=== PATIENT | female | born 1975 | race Caucasian/White ===

== ENCOUNTER → 2023-02-17 | Outpatient (CLI) | payer OTHER, SELFPAY ==
[2023-02-17 08:09] LABS: Absolute Lymphocyte Count 1.58 X10^3/uL (0.83-4.51); Absolute Neutrophil Count 5.8 X10^3/uL (2.0-7.7); Basophil# 0.05 X10^3/uL; Basophil% 0.6 % (0-1); Eosinophil# 0.27 X10^3/uL; Eosinophils% 3.2 % (0-5); Lymphocyte # 1.58 X10^3/ul (0.83-4.51); Mean Corp Hgb Conc 31.7 g/dL (32-36); Mean Corpuscular Hgb 28.8 pg (27.0-32.0); Mean Corpuscular Volume 90.9 fL (81-99); Mean Platelet Vol. 11.2 fl (6.2-12.0); Monocyte# 0.62 X10^3/uL; Monocyte% 7.4 % (0-10); NRBC Flagged by Analyzer 0 % (0-5); Neutrophil # 5.78 X10^3/uL (2.7-7.7); Neutrophil % 69.4 % (47-70); Platelet Count 283 K/mm3 (150-450); RBC Distribution Width SD 43.2 fl (35.1-43.9); Red Blood Count 4.51 M/mm3 (4.2-5.4); White Blood Count 8.3 K/mm3 (4.4-11.0)
[2023-02-17 08:58] LABS: Hemoglobin A1c 5.3 % (3.8-5.6)
[2023-02-17 08:59] LABS: Vitamin B12 412 pg/mL (211-911)
[2023-02-17 09:42] LABS: ALB/GLOB Ratio 0.8 RATIO (0.9-2.4); AST(SGOT) 18 U/L (15-37); Alanine Aminotransfer ALT/SGPT 23 U/L (13-56); Albumin, Serum 3.5 g/dL (3.2-5.0); Alkaline Phosphatase 93 U/L (45-117); Anion Gap 7 (5-15); BUN 15 mg/dL (7-18); BUN/Creat Ratio 18.2 RATIO (10-20); Calcium,Total 8.9 mg/dL (8.5-10.1); Chloride 109 mmol/L (98-107); Cholesterol 226 mg/dL (200); Creatinine, Serum 0.82 mg/dL (0.55-1.02); EST Glomerular Filtration Rate 79 mL/min (>60); Est Glom Filt Rate - Afr Amer 96 mL/min (>60); Estradiol 48.1 pg/mL; Follicle Stimulating Hormone 13.3 mIU/mL; Free T3 2.5 pg/mL (2.18-3.98); Globulin 4.2 g/dL (2.2-4.2); Glucose 103 mg/dL (74-106); High Density Lipoprotein 55 mg/dL; Luteinizing Hormone 5.6 mIU/mL; Potassium 3.6 mmol/L (3.5-5.1); Protein, Total 7.7 g/dL (6.4-8.2); Sodium Level 140 mmol/L (136-145); T4 Free Direct 0.89 ng/dL (0.76-1.46); Triglycerides 125 mg/dL; Very Low Density Lipoprotein 25 mg/dL (5-40)
[2023-02-18 04:07] LABS: DHEA Sulfate 26.6 ug/dL (41.2-243.7)
== END | disposition home or self-care (01) ==
LOC: MTLAB 07:50 → LAB 07:52
PROVIDERS: PCP Family Medicine; Referring Provider Family Medicine; Visit Provider Family Medicine
DX: R53.83 Other fatigue (principal); R87.1 Abnormal level of hormones in specimens from female genital organs
CPT/HCPCS: 36415; 80053; 80061; 82306; 82533; 82607; 82627; 82670; 83001; 83002; 83036; 84403; 84439; 84443; 84481; 85025; 82626

== ENCOUNTER 2023-04-28 06:38 | Emergency (ER) | payer OTHER, SELFPAY ==
[2023-04-28 06:39] VITALS: BP 180/107; PULSE 72; RESP 21; TEMP 36.6; O2SAT 98; BMI 35.6
--- NOTE | 2023-04-28 07:01 | EKG12_ITS ---
Test Reason : palps Blood Pressure : / mmHG Vent. Rate : 065 BPM Atrial Rate : 065 BPM P-R Int : 150 ms QRS Dur : 084 ms QT Int : 404 ms P-R-T Axes : 013 049 025 degrees QTc Int : 420 ms Sinus rhythm with occasional Premature ventricular complexes Otherwise normal ECG Confirmed by JOB VIERA, MAULIK ([id number]), sports editor ROSA PRICE ([id number]) on 04/29/2023 9:55:28 AM Referred By: Hector Confirmed By:MAULIK KAISER MD
--- NOTE | 2023-04-28 07:05 | EDS_ITS ---
HPI History of Present Illness Chief Complaint: Palpitations Detail of Chief Complaint: Did not feel well, palpitations, dizziness and irregular heartbeat Informant: patient and spouse/S.O. Onset/Context/Timing Onset: Yesterday (Last evening for several hours) Context: Sudden Onset Timing: Intermittent (The palpitations irregular heartbeat lasted for a couple hours) Quality: [place] heartbeat Location: Chest Current Severity: Still does not feel normal. Maximum Severity: Moderate Worsened by: Dizziness worsened with standing Relieved by: Not feeling right has not resolved Associated Symptoms Associated Symptoms: None Narrative Narrative: Patient is a 47-year-old woman with history of depression and hypertension who presents with not feeling well with irregular heartbeat, palpitations and dizziness. Patient defines dizziness as lightheaded and was made worse when she joaquina from a sitting position. She denied headache. She denied double vision, blurred vision or loss of vision. She denies upper respiratory symptoms. She denies cough or shortness of breath. She denies chest discomfort. There is no history of VTE. She denies leg pain, swelling or discoloration. She denies diaphoresis, nausea or shortness of breath. She denies abdominal pain. She denies vomiting or diarrhea. She denies neurologic symptoms. There is been no change in medication dosage or any additions or subtractions from present medication list. 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 He did not palpate for a pulse to determine if these may be PACs versus ventricular premature beats. Prior similar symptoms: No Recent Illness/Hospitalization: No [facility] Medical History Hypertension Home Medications Cetirizine Hcl [Zyrtec] 10 mg PO DAILY 06/15/16 [History Last Taken 06/15/16 09:00] escitalopram oxalate 10 mg tablet 10 mg PO DAILY 04/28/23 [History Last Taken Unknown] lisinopril 20 mg tablet 20 mg DAILY 04/28/23 [History Last Taken Unknown] Allergy/AdvReac Type Severity Reaction Status Date / Time No Known Allergies Allergy Verified 04/28/23 06:47 Surgical History History of appendectomy Social History (Updated 08/03/23 @ 07:[address] Bo Young MD) household members: spouse Smoking Status: Never smoker alcohol intake: current alcohol intake frequency: holidays/special occasions only substance use type: does not use ROS ROS ED Constitutional Constitutional ED: Denies chills, fever(s), subjective or sweats Eyes Eyes: Denies blurry vision, change in vision or diplopia ENT ENT ED: Denies ear pain, rhinorrhea or sore throat Cardiovascular Cardiovascular: Reports palpitations; Denies chest pain, orthopnea, paroxysmal nocturnal dyspnea or racing heartbeat Respiratory/Chest Respiratory/Chest: Denies cough, dyspnea, dyspnea on exertion, orthopnea or paroxysmal nocturnal dyspnea Gastrointestinal Gastrointestinal: Denies abdominal pain, constipation, diarrhea, melena, nausea or vomiting Genitourinary Genitourinary ED: Denies dysuria, hematuria or urinary frequency Musculoskeletal Musculoskeletal: Denies arthralgias, back pain, myalgias or neck pain Integumentary Denies rash Neurologic Neurologic: Denies headache(s) Endocrine Endocrinology: Reports heat intolerance; Denies cold intolerance, polydipsia or polyuria Hematologic/Lymphatic Hematologic/Lymphatic: Reports systems reviewed and no addt'l complaints, except as documented EXAM Physical Exam Const Vital Signs: 04/28/23 06:39 Temperature 97.8 F Temperature Source Oral Pulse Rate 72 Respiratory Rate 21 H Blood Pressure 180/107 H Blood Pressure Mean 131 Pulse Ox 98 Oxygen Delivery Method Room Air Positive well nourished, well developed and obese General Appearance ED: well developed and NAD; Negative for cyanotic, diaphoretic or pallor Nutritional Appearance: obese HEENT Reports moist mucous membranes HEENT Narrative: Head is atraumatic normocephalic. Ears are normal. Nares are patent. Posterior pharynx is normal. Mucosa is moist. Eyes PERRL and EOMs intact bilaterally General Eye ED: Negative for pale conjunctiva or scleral icterus Neck no lymphadenopathy, supple and no JVD Chest Wall inspection of chest normal and palpation of chest normal Resp normal respiratory effort and clear to auscultation bilaterally Cardio regular rate, regular rhythm, S1 normal heart sound, S2 normal heart sound and no murmurs GI normal to inspection, nondistended, normoactive bowel sounds, non-tender, non- distended and no masses; Negative for hepatosplenomegaly Back/Spine Back/Spine Narrative: Inspection of back is normal. Extremity normal to inspection Extremity Narrative: There is no asymmetry, swelling, discoloration, leg vein distention, palpable cords or tenderness along the distribution of the deep venous system. General Extremety ED: Negative for edema or tenderness General Extremity: Negative for edema Neuro oriented x3 and CN's II-XII intact bilaterally Sensorium / Orientation: alert Psych mental status grossly normal Skin no rashes or lesions noted, no wounds and skin turgor normal General Skin Exam: elasticity normal; Negative for jaundice or pallor MDM MDM MDM Narrative Medical decision making narrative: Differential diagnosis includes PACs, ventricular premature beats, electrolyte abnormality, noncardiac etiology. Of note patient drinks 1 caffeinated beverage a day, cup of coffee in the morning. Lab Data Attestation: I reviewed the patient's lab results. Lab results narrative: CBC and basic metabolic panel are essentially normal. Chloride is 108. Labs: Laboratory Results - last 24 hr 04/28/23 06:48 WBC 8.8 RBC 4.45 Hgb 13.0 Hct 39.0 MCV 87.6 MCH 29.2 MCHC 33.3 RDW Std Deviation 39.8 RDW Coeff of Jennifer 12.5 Plt Count 256 MPV 11.5 Sodium 139 Potassium 4.0 Chloride 108 H Carbon Dioxide 24.0 Anion Gap 7 BUN 13 Creatinine 0.76 Estim Creat Clear Calc 85.67 Est GFR (MDRD) Af Amer 105 Est GFR (MDRD) Non-Af 87 BUN/Creatinine Ratio 17.2 Glucose 92 Calcium 8.4 L EKG Initial EKG: Attestation: I personally reviewed and interpreted this EKG as follows: Interpretation: Sinus Rhythm (Rate is 65. OR interval is 150 ms. Cures duration 84 ms. QT duration 404 ms. [place] is normal. There is a premature ventricular beat noted.) Treatment and Re-Evaluation :: Remained on the monitor. There was no significant dysrhythmia noted. Patient does have premature ventricular beats. This is probably the irregular beats noted when he auscultated. Since these are unifocal and occasional and her work-up is unremarkable with no further testing needs to be done. She was instructed follow-up with her doctor as needed. Discharge Plan Triage Chief Complaint: Palpitations ED Provider: Bo Young Dx/Rx/DC Orders Clinical Impression: Ventricular premature complexes Instructions: PVCs, ED About Arrhythmias Prescriptions: No Action Cetirizine Hcl [Zyrtec] 10 MG tablet 10 mg PO DAILY Patient Comments: ALLERGIES lisinopril 20 mg tablet 20 mg DAILY Patient Comments: Take 1 tablet by mouthconce daily. escitalopram oxalate 10 mg tablet 10 mg PO DAILY Patient Comments: Take 1 tablet by mouthConce daily. Primary Care Provider: Maryse Velazquez Referrals: Maryse Velazquez DO [Primary Care Provider] - As Needed Disposition Disposition: Home, Self Care
[2023-04-28 07:09] LABS: Mean Corp Hgb Conc 33.3 g/dL (32-36); Mean Corpuscular Hgb 29.2 pg (27.0-32.0); Mean Corpuscular Volume 87.6 fL (81-99); Mean Platelet Vol. 11.5 fl (6.2-12.0); Platelet Count 256 K/mm3 (150-450); RBC Distribution Width CV 12.5 % (11.6-14.6); RBC Distribution Width SD 39.8 fl (35.1-43.9); Red Blood Count 4.45 M/mm3 (4.2-5.4); White Blood Count 8.8 K/mm3 (4.4-11.0)
[2023-04-28 07:21] LABS: Anion Gap 7 (5-15); BUN 13 mg/dL (7-18); BUN/Creat Ratio 17.2 RATIO (10-20); Calcium,Total 8.4 mg/dL (8.5-10.1); Chloride 108 mmol/L (98-107); Creatinine, Serum 0.76 mg/dL (0.55-1.02); EST Glomerular Filtration Rate 87 mL/min (>60); Est Glom Filt Rate - Afr Amer 105 mL/min (>60); Estimated Creatinine Clearance 85.67 ml/min; Glucose 92 mg/dL (74-106); Sodium Level 139 mmol/L (136-145)
[2023-04-28 09:23] VITALS: BP 138/98; PULSE 72; RESP 14; O2SAT 97
== END 2023-04-28 09:28 | disposition home or self-care (01) ==
PROVIDERS: Emergency Provider Emergency Medicine; PCP Family Medicine; Visit Provider Emergency Medicine
DX: I49.3 Ventricular premature depolarization (principal); I10 Essential (primary) hypertension; Z79.899 Other long term (current) drug therapy
CPT/HCPCS: 80048; 85027; 93005; 99284; A4216

== ENCOUNTER 2023-08-24 20:42 | Emergency (ER) | payer OTHER, SELFPAY ==
[2023-08-24 20:44] VITALS: BP 181/102; PULSE 79; RESP 18; TEMP 37; O2SAT 98; BMI 36.6
--- NOTE | 2023-08-24 20:55 | EDS_ITS ---
HPI HPI - GI History of Present Illness Chief Complaint: Abd Pain Detail of Chief Complaint: Abdominal pain Informant: patient Narrative Narrative: Patient presents to the emergency department with complaint of abdominal pain x3 days. Patient has had some nausea but no vomiting. She denies fever but she had some chills. She describes the pain location as diffuse but also some discomfort in her left lower back. She denies urinary symptoms. She denies dysuria or urgency or frequency. No history of kidney stones. No history of diverticulitis. She has had prior appendectomy. Currently rates her pain a 6 or 7 out of 10. [facility] Medical History (Updated 08/24/23 @ 23:[address] Griselda Stewart, DO) Hypertension Osteoporosis Home Medications Cetirizine Hcl [Zyrtec] 10 mg PO DAILY 06/15/16 [History Last Taken 06/15/16 09:00] escitalopram oxalate 10 mg tablet 10 mg PO DAILY 04/28/23 [History Last Taken Unknown] lisinopril 20 mg tablet 20 mg PO DAILY 04/28/23 [History Last Taken Unknown] dicyclomine 10 mg capsule 20 mg (2 x 10 mg) PO TIDAC #20 CAPSULES 08/24/23 [Rx Last Taken Unknown] hydrocodone-acetaminophen 5-325mg 5mg-325mg 1 tab PO Q4H PRN PRN Pain 2 days #10 TABLETS 08/24/23 [Rx Last Taken Unknown] ondansetron 4 mg disintegrating tablet 4 mg PO Q8H PRN PRN Nausea #10 tabs 08/24/23 [Rx Last Taken Unknown] Allergy/AdvReac Type Severity Reaction Status Date / Time No Known Allergies Allergy Verified 08/24/23 20:46 Surgical History History of appendectomy Social History (Updated 04/28/23 @ 07:[address] Bo Young MD) household members: spouse Smoking Status: Never smoker alcohol intake: current alcohol intake frequency: holidays/special occasions only substance use type: does not use ROS ROS ED Review of Systems ROS Unobtainable: other Constitutional Constitutional ED: Reports lethargy; Denies chills, fever(s), sweats or weight loss Eyes Eyes: Denies blurry vision, change in vision or diplopia ENT ENT ED: Denies rhinorrhea or sore throat Cardiovascular Cardiovascular: Denies chest pain, orthopnea or racing heartbeat Respiratory/Chest Respiratory/Chest: Denies cough, dyspnea, dyspnea on exertion, orthopnea or sputum Gastrointestinal Gastrointestinal: Reports abdominal pain and nausea; Denies diarrhea or vomiting Genitourinary Genitourinary ED: Denies dysuria, hematuria or urinary frequency Musculoskeletal Musculoskeletal: Denies arthralgias, back pain, myalgias or neck pain Integumentary Denies abscess, Abrasions or rash Neurologic Neurologic: Denies headache(s) or weakness Psychiatric Psychiatric: Denies anxiety, depression or suicidal thoughts Endocrine Endocrinology: Denies polydipsia, polyphagia or polyuria Hematologic/Lymphatic Hematologic/Lymphatic: Denies easy bleeding, easy bruising or lymphadenopathy Allergic/Immunologic Allergic/Immunologic ED: Denies mouth swelling, tongue swelling or urticaria EXAM Physical Exam Const Vital Signs: 08/24/23 20:44 Temperature 98.6 F Temperature Source Temporal Pulse Rate 79 Respiratory Rate 18 Blood Pressure 181/102 H Blood Pressure Mean 128 Pulse Ox 98 Oxygen Delivery Method Room Air Positive well nourished and well developed General Appearance ED: well developed and NAD HEENT Reports TM's clear and moist mucous membranes normocephalic and atraumatic; Negative for trauma or tenderness Tympanic Membrane ED: Yes TM's clear Eyes PERRL and EOMs intact bilaterally General Eye ED: Negative for pale conjunctiva or scleral icterus Neck no lymphadenopathy, supple and no JVD General: Negative for tenderness Chest Wall inspection of chest normal and palpation of chest normal Chest: Negative for tenderness Resp normal respiratory effort and clear to auscultation bilaterally Effort and Inspection: Negative for respiratory distress or pain with movement Auscultation: Negative for rhonchi, wheezes or diminished lung sounds Cardio regular rate, regular rhythm, S1 normal heart sound, S2 normal heart sound and no murmurs Peripheral Pulses: pulses 2+ throughout GI normal to inspection, nondistended, normoactive bowel sounds, soft to palpation, non-distended and no masses GI Narrative: Tenderness palpation over the epigastric region as well as the left upper quadrant and left lower quadrant with guarding. There is no rebound, rigidity, or peritoneal signs. No mass palpated. Back/Spine no CVA tenderness and no thoracic nor lumbar tenderness Extremity normal to inspection General Extremety ED: Negative for edema General Extremity: Negative for edema Neuro oriented x3, CN's II-XII intact bilaterally, no sensory deficits noted and gait normal Sensorium / Orientation: awake, alert, oriented to person, oriented to place and oriented to time Motor Exam: strength 5/5 throughout and strength abnormal Psych mental status grossly normal Skin no rashes or lesions noted and no wounds MDM MDM MDM Narrative Medical decision making narrative: Tamir with abdominal pain x3 days. Pain seems to be more left-sided and complaint of pain with bumps in the road on arrival over. In the differential would be diverticulitis versus kidney stone versus bowel obstruction or bowel perforation. Peptic ulcer disease or pancreatitis also in the differential but less likely. CBC with differential obtained showed a slightly elevated white blood cell count of 14.2 with a normal differential. Hemoglobin 12.8 and platelet count 273. LFTs were normal. Lactate normal at 0.6. Lipase normal 7. Urinalysis was normal. CT scan of the abdomen pelvis with IV contrast obtained showed bilateral ovarian cyst otherwise showed evidence of prior appendectomy and no other acute disease process. Patient was medicated with 2 mg of morphine and Zofran. This patient be discharged to home diagnosis abdominal pain etiology uncertain. She does have remote history maybe with some irritable bowel syndrome. Will refer to GI for follow-up. We will write a prescription for Zofran as well as Bentyl and a few [place] for severe pain. Advised to return if worsening pain, fever, vomiting, bloody stools, or condition worsening way. Lab Data Labs: Laboratory Results - last 24 hr 08/24/23 08/24/23 21:00 21:10 WBC 14.2 H RBC 4.53 Hgb 12.8 Hct 40.1 MCV 88.5 MCH 28.3 MCHC 31.9 L RDW Std Deviation 41.0 RDW Coeff of Jennifer 12.7 Plt Count 273 MPV 11.7 Immature Gran % (Auto) 0.500 Neut % (Auto) 69.9 Lymph % (Auto) 20.7 [place] % (Auto) 7.0 Eos % (Auto) 1.6 Baso % (Auto) 0.3 Absolute Neuts (auto) 9.9 H Absolute Lymphs (auto) 2.93 Nucleated RBC % 0 Sodium 137 Potassium 3.6 Chloride 105 Carbon Dioxide 28.0 Anion Gap 4 L BUN 14 Creatinine 0.80 Estim Creat Clear Calc 80.51 Est GFR (MDRD) Af Amer 98 Est GFR (MDRD) Non-Af 81 BUN/Creatinine Ratio 17.4 Glucose 97 Lactic Acid 0.6 Calcium 8.5 Total Bilirubin 0.30 AST 20 ALT 28 Alkaline Phosphatase 89 Total Protein 7.7 Albumin 3.5 Globulin 4.2 Albumin/Globulin Ratio 0.8 L Lipase 57 Urine Color Yellow Urine Clarity Sl. Cloudy Urine pH 5.0 Ur Specific [place] 1.025 Urine Protein Negative Urine Glucose (UA) Normal Urine Ketones Negative Urine Occult Blood 10 H Urine Nitrite Negative Urine Bilirubin Negative Urine Urobilinogen Normal Ur Leukocyte Esterase Negative Urine RBC 0-5 SEEN Urine WBC 0 SEEN Ur Squamous Epith Cells 0-5 SEEN Urine Bacteria 1+ Urine Mucus RARE Radiography Diagnostic Testing: Clinical Impression(s) from Imaging Studies Abdomen/Pelvis CT 08/24/23 20:55 IMPRESSION: undefined Discharge Plan Triage Chief Complaint: Abd Pain ED Provider: Griselda Stewart Dx/Rx/DC Orders Clinical Impression: Abdominal pain Instructions: ED Abdominal Pain Unkn Cause Fem Prescriptions: New hydrocodone-acetaminophen [hydrocodone-acetaminophen] 5-325 mg tablet 1 tab PO Q4H PRN PRN (Reason: Pain) 2 Days Qty: 10 0RF ondansetron [ondansetron] 4 mg tablet,disintegrating 4 mg PO Q8H PRN PRN (Reason: Nausea) Qty: 10 0RF dicyclomine 10 mg capsule 20 mg PO TIDAC Qty: 20 0RF No Action Cetirizine Hcl [Zyrtec] 10 MG tablet 10 mg PO DAILY Patient Comments: ALLERGIES lisinopril 20 mg tablet 20 mg PO DAILY Patient Comments: Take 1 tablet by mouthconce daily. escitalopram oxalate 10 mg tablet 10 mg PO DAILY Patient Comments: Take 1 tablet by mouthConce daily. Primary Care Provider: Maryse Velazquez Referrals: Maryse Velazquez DO [Primary Care Provider] - Axel Castaneda DO [Med Staff - Active Staff] - 3-5 Days Disposition Disposition: Home, Self Care
--- NOTE | 2023-08-24 20:55 | CT_ITS ---
EXAM: CT abdomen and pelvis with contrast. HISTORY: abdominal pain TECHNIQUE: CT Abdomen And Pelvis W/ Contrast Injection. A radiation dose optimization technique was used for this scan. COMPARISON: CT abdomen pelvis April 14, 2017. LIMITATIONS: None. LOWER CHEST: Normal. LIVER: Normal. GALLBLADDER: Normal. BILE DUCTS: Normal. PANCREAS: Normal. SPLEEN: Normal. ADRENAL GLANDS: Normal. KIDNEYS/URETERS/BLADDER: Normal. AORTA: Normal caliber. BOWEL/MESENTERY: Normal. APPENDIX: Not visualized. Query appendectomy. PERITONEUM: Normal. REPRODUCTIVE ORGANS: An intrauterine device is identified. A right ovarian cyst measures 2.5 cm. A left ovarian cyst is similar in size with adjacent smaller cysts or follicles. BONES/SOFT TISSUES: No acute fracture. OTHER: None. CONCLUSION: Bilateral ovarian cysts measure up to 2.5 cm. Electronically Signed: Keven Bermudez MD at 22:54 EST , CT/Abdomen/Pelvis W IV Cont ONLY IMPRESSION: undefined
[2023-08-24] MEDS: 0.9% Normal Saline (1000mL) 1,000 ML 125 ML IV (21:08)
[2023-08-24 21:17] LABS: White Blood Cells 0 SEEN /hpf (0-5)
[2023-08-24 21:20] LABS: Color, Urine Yellow (Yellow); Glucose, Dipstick Normal (Normal); Ketone-Dipstick Negative (Negative); Leukocyte Esterase-Dipstick Negative /ul (Negative); Nitrite-Dipstick Negative (Negative); Occult Blood-Urine 10 /ul (Negative); Protein-Dipstick Negative (Negative); Specific Gravity, Urine 1.025 (1.002-1.030); Urine Bilirubin Dipstick Negative (Negative); Urine Clarity Sl. Cloudy (Clear); Urine Urobilinogen Normal (Normal)
[2023-08-24 21:23] LABS: Absolute Lymphocyte Count 2.93 X10^3/uL (0.83-4.51); Absolute Neutrophil Count 9.9 X10^3/uL (2.0-7.7); Basophil# 0.04 X10^3/uL; Basophil% 0.3 % (0-1); Eosinophil# 0.22 X10^3/uL; Eosinophils% 1.6 % (0-5); Hematocrit 40.1 % (37-47); Hemoglobin 12.8 g/dL (12.0-15.0); Lymphocyte # 2.93 X10^3/ul (0.83-4.51); Lymphocyte % 20.7 % (19-41); Mean Corp Hgb Conc 31.9 g/dL (32-36); Mean Corpuscular Hgb 28.3 pg (27.0-32.0); Mean Corpuscular Volume 88.5 fL (81-99); Mean Platelet Vol. 11.7 fl (6.2-12.0); Monocyte# 0.99 X10^3/uL; NRBC Flagged by Analyzer 0 % (0-5); Neutrophil % 69.9 % (47-70); Platelet Count 273 K/mm3 (150-450); RBC Distribution Width CV 12.7 % (11.6-14.6); Red Blood Count 4.53 M/mm3 (4.2-5.4); White Blood Count 14.2 K/mm3 (4.4-11.0)
[2023-08-24 21:36] LABS: ALB/GLOB Ratio 0.8 RATIO (0.9-2.4); AST(SGOT) 20 U/L (15-37); Alanine Aminotransfer ALT/SGPT 28 U/L (13-56); Albumin, Serum 3.5 g/dL (3.2-5.0); Alkaline Phosphatase 89 U/L (45-117); Anion Gap 4 (5-15); BUN 14 mg/dL (7-18); BUN/Creat Ratio 17.4 RATIO (10-20); Calcium,Total 8.5 mg/dL (8.5-10.1); Chloride 105 mmol/L (98-107); EST Glomerular Filtration Rate 81 mL/min (>60); Est Glom Filt Rate - Afr Amer 98 mL/min (>60); Estimated Creatinine Clearance 80.51 ml/min; Globulin 4.2 g/dL (2.2-4.2); Glucose 97 mg/dL (74-106); Lipase 57 U/L (13-75); Potassium 3.6 mmol/L (3.5-5.1); Protein, Total 7.7 g/dL (6.4-8.2); Sodium Level 137 mmol/L (136-145)
[2023-08-24 21:38] LABS: Bacteria 1+ /hpf (None Seen); Mucous, Urine RARE /hpf (<or=2+); Red Blood Cells-Urine 0-5 SEEN /hpf (0-5); Squamous Epithelial Cells - UA 0-5 SEEN /hpf (5-10)
[2023-08-24 21:42] LABS: Lactic Acid 0.6 mmol/L (0.4-1.9)
[2023-08-24] MEDS: Morphine 2 MG/ML Syringe IV (23:01)
[2023-08-24] MEDS: Ondansetron 4 MG/2 ML Vial IV (23:01)
[2023-08-24 23:08] VITALS: BP 145/90; PULSE 87; RESP 16; O2SAT 97
[2023-08-24 23:09] VITALS: BP 145/90; PULSE 78; RESP 16; O2SAT 98
== END 2023-08-24 23:40 | disposition home or self-care (01) ==
PROVIDERS: Emergency Provider Emergency Medicine; PCP Family Medicine; Visit Provider Emergency Medicine
DX: R10.12 Left upper quadrant pain (principal); R10.32 Left lower quadrant pain; R10.13 Epigastric pain; N83.202 Unspecified ovarian cyst, left side; N83.201 Unspecified ovarian cyst, right side; I10 Essential (primary) hypertension; K58.9 Irritable bowel syndrome, unspecified; R11.0 Nausea; Z79.899 Other long term (current) drug therapy
CPT/HCPCS: 74177; 80053; 81001; 83605; 83690; 85025; 96361; 96374; 96375; 99283; Q9967; J2405

== ENCOUNTER 2024-02-07 02:34 | Emergency (ER) | payer OTHER, SELFPAY ==
--- NOTE | 2024-02-07 03:00 | RAD_ITS ---
INDICATION: PAIN EXAMINATION/TECHNIQUE: X-RAY - RIGHT XR Shoulder Min 2 Views COMPARISON: 07/31/2009 right shoulder radiographs. FINDINGS: 4 views of the right shoulder. BONES: Normal anatomic alignment without evidence of fracture or subluxation. No concerning bony lesion or abnormal sclerosis to suggest lesion. JOINTS: No significant degenerative change. SOFT TISSUES: Heterotopic ossification about the right shoulder. RAD/Shoulder min 2 Views IMPRESSION: Heterotopic ossification about the right shoulder, new from 2008, to include hydroxyapatite deposition. Otherwise no acute abnormality of the right shoulder. Electronically Signed: Miguel Ángel Elise MD at 4:13 EDT ,
--- NOTE | 2024-02-07 05:53 | EDS_ITS ---
HPI History of Present Illness Informant: patient and spouse/S.O. Narrative Narrative: 48-year-old female presenting with 2-3 days of gradual onset right shoulder pain that is mostly anterior. She states she is also been having pain going down her arm. At 1 point the entire arm including all fingers were numb, but right now it is just involving fingers 2-4. She had problems with one of the tendons in her shoulder in the past and received a cortisone injection and some other issues but that was a long time ago and she recalls no injury. It was in the same area that starting now, anterior shoulder. She denies any fevers, chills, systemic symptoms, recent illness. She states her moving the shoulder really makes the pain worse. Moving her head and neck, not so much. [facility] Medical History (Updated 02/07/24 @ 05:[address] Saurabh Jeffers MD) Hypothyroidism Osteoporosis Hypertension Home Medications Cetirizine Hcl [Zyrtec] 10 mg PO DAILY 06/15/16 [History Last Taken 06/15/16 09:00] escitalopram oxalate 10 mg tablet 10 mg PO DAILY 04/28/23 [History Last Taken Unknown] lisinopril 20 mg tablet 20 mg PO DAILY 04/28/23 [History Last Taken Unknown] dicyclomine 10 mg capsule 20 mg (2 x 10 mg) PO TIDAC #20 CAPSULES 08/24/23 [Rx Last Taken Unknown] hydrocodone-acetaminophen 5-325mg 5mg-325mg 1 tab PO Q4H PRN PRN Pain 2 days #10 TABLETS 08/24/23 [Rx Last Taken Unknown] ondansetron 4 mg disintegrating tablet 4 mg PO Q8H PRN PRN Nausea #10 tabs 08/24/23 [Rx Last Taken Unknown] Allergy/AdvReac Type Severity Reaction Status Date / Time No Known Allergies Allergy Verified 08/24/23 20:46 Surgical History History of appendectomy Social History household members: spouse Smoking Status: Never smoker alcohol intake: current alcohol intake frequency: holidays/special occasions only substance use type: does not use ROS ROS ED Constitutional Constitutional ED: Denies chills or fever(s) Musculoskeletal Musculoskeletal: Reports as per HPI and extremity pain; Denies back pain or neck pain Neurologic Neurologic: Reports as per HPI and paresthesias RUE; Denies headache(s) or weakness Psychiatric Psychiatric: Denies suicidal ideation or suicidal thoughts EXAM Physical Exam Narrative Exam Narrative: On exam, she is mostly tender at the anterior shoulder with a positive Yergason sign. She also has a positive Speed test that she is barely able to flex anteriorly with regards to the upper arm. Minor tenderness in the subacromial region. There is no erythema or excessive warmth in the right shoulder. She is very limited range of motion but she is able to do short arc external and i nternal rotation without any difficulty but she is very limited. Limited abduction as well. Neurovascular intact distally, she has a 2+/4 radial pulse, and subjective decrease sensation in all fingers including the thumb and the small finger. It is worse in the fingers 2-4. Full range of motion of the elbow and wrist without any difficulty. Const Positive well nourished and well developed General Appearance ED: well developed and NAD Neck full ROM and supple General: Negative for tenderness Chest Wall inspection of chest normal Resp normal respiratory effort Extremity normal to inspection Psych mental status grossly normal Skin Lesions: no lesions Rashes: no rashes MDM MDM MDM Narrative Medical decision making narrative: Three-view x-ray series of the right shoulder show what appears to be calcific tendinitis and are negative for acute bony abnormality on my interpretation. My suspicion is that this could be biceps tendinitis as well. Subacromial bursitis also in the differential diagnosis as is tendinitis or injury to a rotator such as subscapularis, teres minor. At this time we will put her in a sling and give her pain medication and have her follow-up with orthopedics, she has an appointment with someone at [facility] in a couple days. Discharge Plan Triage ED Provider: Saurabh Jeffers Dx/Rx/DC Orders Clinical Impression: Calcific tendonitis of right shoulder Prescriptions: No Action Cetirizine Hcl [Zyrtec] 10 MG tablet 10 mg PO DAILY Patient Comments: ALLERGIES lisinopril 20 mg tablet 20 mg PO DAILY Patient Comments: Take 1 tablet by mouthconce daily. escitalopram oxalate 10 mg tablet 10 mg PO DAILY Patient Comments: Take 1 tablet by mouthConce daily. hydrocodone-acetaminophen [hydrocodone-acetaminophen] 5-325 mg tablet 1 tab PO Q4H PRN PRN (Reason: Pain) 2 Days Qty: 10 0RF ondansetron [ondansetron] 4 mg tablet,disintegrating 4 mg PO Q8H PRN PRN (Reason: Nausea) Qty: 10 0RF dicyclomine 10 mg capsule 20 mg PO TIDAC Qty: 20 0RF Primary Care Provider: Mrayse Velazquez Referrals: Doctor,Your [Non-Staff] - Keep Fabián appointment Activity Restrictions/Additional Instructions: (Patient seen during EMR downtime and given paper discharge instructions and prescription) Print Language: [place] Disposition Disposition: Home, Self Care Discharge Date/Time: 02/07/24 04:00
== END 2024-02-07 04:00 | disposition home or self-care (01) ==
LOC: ED 05:01
PROVIDERS: Emergency Provider Emergency Medicine; PCP Family Medicine; Visit Provider Emergency Medicine
DX: M75.31 Calcific tendinitis of right shoulder (principal); E03.9 Hypothyroidism, unspecified; Z79.899 Other long term (current) drug therapy; I10 Essential (primary) hypertension
CPT/HCPCS: 73030; 96372

== ENCOUNTER → 2024-08-02 | Outpatient (CLI) | payer OTHER, SELFPAY | END | disposition home or self-care (01) | LOC: SL 12:08 | PROVIDERS: PCP Family Medicine; Referring Provider Family Medicine; Visit Provider Family Medicine | DX: G47.30 Sleep apnea, unspecified (principal) | CPT/HCPCS: 95806 ==

== ENCOUNTER → 2025-05-02 | Outpatient (CLI) | payer OTHER, SELFPAY ==
--- OUTSIDE RECORDS SUMMARY | 2025-05-02 07:17 | XMS RPT_ITS | CCD ---
Author Organization [facility] Care Team Providers Care [employer] Name Role Phone Yang Nieves MD Primary Care Provider [phone] Labor DO, Trent Martínez Primary Care Provider LABOR, TRENT T Primary Care Unavailable PLATA, CHEY D Referring Unavailable PLATA, CHEY D Attending Unavailable LABOR, TRENT T Primary Care Unavailable SCARCELLA, BENJAMIN Attending Unavailable LABOR, TRENT T Referring Unavailable YANG NIEVES Primary Care Unavailable LABOR, TRENT T Primary Care Unavailable LABOR, TRENT T Primary Care Unavailable SIOBHAN PATEL Attending Unavailable PLATA, CHEY D Referring Unavailable LABOR, TRENT T Primary Care Unavailable PLATA, CHEY D Referring Unavailable LABOR, TRENT T Primary Care Unavailable LPATA, CHEY D Referring Unavailable LABOR, TRENT T Primary Care Unavailable PLATA, CHEY D Referring Unavailable LABOR, TRENT T Primary Care Unavailable O'HONORIO, ELIZ Attending Unavailable PLATA, CHEY D Referring Unavailable LABOR, TRENT T Primary Care Unavailable O'HONORIO, ELIZ Attending Unavailable PLATA, CHEY D Referring Unavailable PLATA, CHEY D Referring Unavailable LABOR, TRENT T Primary Care Unavailable PLATA, CHEY D Referring Unavailable LABOR, TRENT T Primary Care Unavailable O'HONORIO, ELIZ Attending Unavailable LABOR, TRENT T Primary Care Unavailable O'HONORIO, ELIZ Attending Unavailable LABOR, TRENT T Primary Care Unavailable JANNETH RACHEL Referring Unavailable LABOR, TRENT T Primary Care Unavailable PLATA, CHEY D Attending Unavailable LABOR, TRENT T Primary Care Unavailable KALIN BENJAMIN Referring Unavailable LABOR, TRENT T Primary Care Unavailable PLATA, CHEY D Attending Unavailable LABOR, TRENT T Primary Care Unavailable CHARLIEABENJAMIN Referring Unavailable Yang Nieves MD Primary Care Provider Labor DO, Dr. Serra Primary Care Provider [phone] Labor DO, Dr. Serra Referring Provider Rojelio Chase Attending Provider [phone] Friend DO, Dr. Reyna Attending Provider Friend, Axel Attending Unavailable Labor, Trent Primary Care Unavailable Assessment, Health Risk Attending Unavaila ble Assessment, Health Risk Referring Unavaila ble Labor, Trent Primary Care Unavailable Labor, Trent Attending Unavailable Labor, Trent Referring Unavailable Labor, Trent Primary Care Unavailable Rojelio Chase Attending Unavailable Labor, Trent Referring Unavailable Labor, Trent Primary Care Unavailable Friend, Axel Attending Unavailable Labor, Trent Referring Unavailable Labor, Trent Primary Care Unavailable Labor, Trent Attending Unavailable Labor, Trent Referring Unavailable Labor, Trent Primary Care Unavailable Allergies Allergy Classification Reported Allergen(s) Allergy Type Date of Onset Reaction(s) Facility Pollen (2 sources) Tree and shrub pollen Substance Allergy 0 Other: See Comments [facility] Work Phone: (20 sources) Tree and shrub pollen; Translations: [TREE AND SHRUB POLLEN] Drug Allergy 0 Other: See Comments [facility] Work Phone: Medications Current Medications Medication Drug Class(es) Dates Sig (Normalized) Sig (Original) acetaminophen 325 mg / oxyCODONE hydrochloride 5 mg oral tablet (17 sources) Opioid Agonist Start: 02-07-2024 oxyCODONE-acetamin ophen (PERCOCET) 5-325 mg tablet 02/07/2024 Active amoxicillin 875 mg / clavulanate 125 mg oral tablet (1 source) Penicillin-class Antibacterial Start: 01-27-2023 End: 02-03-2023 take 1 tablet by mouth twice daily amoxicillin-clavul anic acid (AUGMENTIN) 875-125 mg per tablet Indications: Parotitis, acute Take 1 tablet by mouth twice daily for 7 days. 14 tablet 0 01/27/2023 02/03/2023 Active Comment on above: Take 1 tablet by arnaldo twice daily for 7 days. escitalopram 10 mg oral tablet (20 sources) Serotonin Reuptake Inhibitor Start: 04-28-2023 take 1 tablet by mouth once daily Escitalopram Oxalate 10 mg tablet Active 10 mg PO DAILY April 28, 2023 12:00am Start: 08-25-2022 End: 03-10-2023 take 1 tablet by mouth once daily escitalopram oxalate (LEXAPRO) 10 mg tablet Take 1 tablet by mouth once daily. 90 tablet 1 03/10/2023 Active Start: 07-27-2022 End: 08-25-2022 take 1 tablet by mouth once daily escitalopram oxalate (LEXAPRO) 5 mg tablet Take 1 tablet by mouth once daily. 30 tablet 5 07/27/2022 08/25/2022 Discontinued Comment on above: Take 1 tablet by arnaldo th once daily. fluconazole 150 mg oral tablet (1 source) Azole Antifungal Start: 2 End: 2 take 1 tablet by mouth once fluconazole (DIFLUCAN) 150 mg tablet Take 1 tablet by mouth one time only for 1 dose. 1 tablet 0 03/03/2022 03/03/2022 Active Comment on above: Take 1 tablet by arnaldo th one time only for 1 dose. lisinopril 20 mg oral tablet (20 sources) Angiotensin Converting Enzyme Inhibitor Start: 3 take 1 tablet by mouth once daily Lisinopril 20 mg tablet Active 20 mg PO DAILY April 28, 2023 12:00am Start: 07-27-2022 End: 03-10-2023 take 1 tablet by mouth once daily lisinopril (ZESTRIL) 20 mg tablet Indications: Hypertension, essential Take 1 tablet by mouth once daily. 90 tablet 1 03/10/2023 Active Start: 06-24-2022 End: 07-27-2022 take 1 tablet by mouth once daily lisinopril (ZESTRIL, PRINIVIL) 10 mg tablet Indications: Hypertension, essential Take 1 tablet by mouth once daily. 30 tablet 5 06/24/2022 07/27/2022 Discontinued Comment on above: Take 1 tablet by arnaldo th once daily. meloxicam 7.5 mg oral tablet (11 sources) Nonsteroidal Anti-inflammatory Drug Start: 2023 take 1 tablet by mouth once daily meloxicam (MOBIC) 7.5 mg tablet Take 1 tablet by mouth once daily. 30 tablet 2 02/29/2024 Active methylPREDNISolone (18 sources) Corticosteroid Start: 2023 methylPREDNISolone (MEDROL, SEAN,) 4 mg Dose-Pack As Instructed per package 21 tablet 02/08/2024 Active Start: 02-08-2024 methylPREDNISo lone (MEDROL, SEAN,) 4 mg Dose-Pack As Instructed per package 21 tablet 0 02/08/2024 Active Start: 11-22-2020 End: 12-10-2020 methylPREDNISolone (MEDROL, SEAN,) 4 mg Dose-Pack Indications: Acute right-sided low back pain with right-sided sciatica As instructed per package 1 Package 11/22/2020 12/10/2020 Discontinued (Course of therapy completed) traMADol hydrochloride 50 mg oral tablet (1 source) Opioid Agonist Start: 03-09-2024 End: 03-14-2024 take 1 tablet by mouth every six hours as needed traMADol (ULTRAM) 50 mg tablet Indications: Calcific tendinitis of right shoulder Take 1 tablet by mouth every 6 hours as needed for up to 5 days. 15 tablet 0 03/09/2024 03/14/2024 Active valACYclovir 1000 mg oral tablet (1 source) Herpesvirus Nucleoside Analog DNA Polymerase Inhibitor, Herpes Simplex Virus Nucleoside Analog DNA Polymerase Inhibitor, Herpes Zoster Virus Nucleoside Analog DNA Polymerase Inhibitor Start: 08-07-2022 End: 08-14-2022 take 1 tablet by mouth three times daily valACYclovir (VALTREX) 1 gram Indications: Neck pain on right side Take 1 tablet by mouth three times daily for 7 days. 21 tablet 0 08/07/2022 08/14/2022 Active Comment on above: Take 1 tablet by arnaldo three times daily for 7 days. Completed/Discontinued Medications Medication Drug Class(es) Dates Sig (Normalized) Sig (Original) acetaminophen 325 mg oral capsule (4 sources) End: 04-20-2022 take 1 capsule by mouth every twelve hours as needed acetaminophen (TYLENOL) 325 mg cap Take 325 mg by mouth twice daily as needed. 04/20/2022 Discontinued Comment on above: Take 325 mg by mouth twice daily as needed. acetaminophen 325 mg / HYDROcodone bitartrate 5 mg oral tablet (2 sources) Opioid Agonist Start: 08-24-2023 End: 01-07-2025 Hydrocodone-Acetami nophen 5-325 mg tablet Discontinued 1 {tbl} PO EVERY 4 HOURS NEEDED as needed for Pain 10 2 0 August 24, 2023 January 07, 2025 6:54am Abdominal pain Unspecified abdominal pain Start: 08-24-2023 take 1 tablet by arnaldo th every four hours as needed Hydrocodone-Acetaminophen Active 1 TABLE T PO EVERY 4 HOURS NEEDED 10 2 August 24, 2023 benzonatate 100 mg oral capsule (3 sources) Non-narcotic Antitussive Start: 09-07-2021 End: 04-20-2022 benzonatate (TESSALON PERLE) 100 mg capsule Take 1-2 capsules tid prn, no more than 6 in 24 hours. 30 capsule 0 09/07/2021 04/20/2022 Discontinued Comment on above: Take 1-2 capsules ti d prn, no more than 6 in 24 hours. cetirizine hydrochloride 10 mg oral tablet (20 sources) Histamine-1 Receptor Antagonist Start: 05-31-2014 End: 01-07-2025 take 1 tablet by mouth once daily Cetirizine Hcl (Zyrtec) 10 MG tablet Discontinued 10 mg PO DAILY June 15, 2016 12:00am January 07, 2025 6:54am Comment on above: Take 1 tablet by arnaldo th once daily. cyclobenzaprine hydrochloride 10 mg oral tablet (1 source) Muscle Relaxant Start: 11-22-2020 End: 12-10-2020 take 1 tablet by mouth three times daily as needed cyclobenzaprine (FLEXERIL) 10 mg tablet Indications: Acute right-sided low back pain with right-sided sciatica Take 1 tablet by mouth three times daily as needed. 30 tablet 11/22/2020 12/10/2020 Discontinued (Course of therapy completed) diclofenac sodium 75 mg delayed release oral tablet (3 sources) Nonsteroidal Anti-inflammatory Drug Start: 02-22-2024 End: 02-29-2024 take 1 tablet by mouth twice daily diclofenac, EC, (VOLTAREN) 75 mg EC tablet Take 1 tablet by mouth two times a day. 60 tablet 0 02/22/2024 02/29/2024 Discontinued dicyclomine hydrochloride 10 mg oral capsule (2 sources) Anticholinergic Start: 08-24-2023 End: 01-07-2025 take 2 capsules by mouth three times daily before mealtime Dicyclomine 10 mg capsule Discontinued 20 mg PO THREE TIMES DAILY BEFORE MEALS 20 0 August 243 1:00am January 07, 2025 6:54am Start: 08-24-2023 take 20 mg by mouth three times daily before mealtime Dicyclomine Active 20 MG PO THREE TIMES DAILY BEFORE MEALS August 24, 2023 12:00am ergocalciferol 1.25 mg oral capsule (3 sources) Provitamin D2 Compound Start: 07-13-2021 End: 04-20-2022 take 1 capsule by mouth every week ergocalciferol 50,000 unit capsule (VITAMIN D2, DRISDOL) TAKE 1 CAPSULE BY MOUTH ONE TIME A WEEK. 12 capsule 3 07/13/2021 04/20/2022 Discontinued Comment on above: TAKE 1 CAPSULE BY MO UT ONE TIME A WEEK. ibuprofen 200 mg oral capsule (20 sources) Nonsteroidal Anti-inflammatory Drug End: 02-22-2024 Ibuprofen 200 mg cap Take by mouth every 6 hours as needed. 02/22/2024 Discontinued Comment on above: Take by mouth every 6 hours as needed. 2 ml ketorolac tromethamine 30 mg/ml injection (2 sources) Nonsteroidal Anti-inflammatory Drug, Cyclooxygenase Inhibitor Start: 03-09-2024 End: 03-09-2024 keTORolac 60 mg injection (Toradol) levonorgestrel 0.351004 mg/hr intrauterine system (20 sources) Progestin, Progestin-containin g Intrauterine Device Start: 08-05-2022 End: 08-05-2022 levonorgestrel 20 mcg/24 hours (8 yrs) 52 mg 1 Each intrauterine device (MIRENA) levonorgestrel ( MIRENA) 20 mcg/24 hours (8 yrs) 52 mg IUD 1 Each by INTRAUTERINE route one time only. Active Comment on above: 1 Each by INTRAUTERI NE route one time only. 10 ml lidocaine hydrochloride 10 mg/ml injection (3 sources) Antiarrhythmic, Amide Local Anesthetic Start: 03-09-2024 End: 03-09-2024 lidocaine (PF) 10 mg/mL (1 %) 2 mL injection (XYLOCAINE) Start: 03-09-2024 End: 03-09-2024 lidocaine (PF) 10 mg/mL (1 % ) 100 mg injection (XYLOCAINE) miSOPROStol 0.2 mg oral tablet (11 sources) Prostaglandin E1 Analog Start: 05-14-2022 End: 09-09-2022 miSOPROStol (CYTOTEC) 200 mcg tablet Indications: Excessive bleeding in premenopausal period Insert 2 tablets vaginally night prior to endometrial biopsy and 2 tablets morning of procedure. Each dose should be in vagina for 6-8 hours. 4 tablet 0 05/14/2022 09/09/2022 Discontinued (Other) Comment on above: Insert 2 tablets vag inally night prior to endometrial biopsy and 2 tablets morning of procedure. Each dose should be in vagina for 6-8 hours. mometasone furoate 1 mg/ml topical cream (3 sources) Corticosteroid Start: 06-12-2021 End: 04-20-2022 mometasone (ELOCON) 0.1 % cream Apply to affected area once daily. 30 g 0 06/12/2021 04/20/2022 Discontinued Comment on above: Apply to affected ar ea once daily. naproxen 500 mg oral tablet (4 sources) Nonsteroidal Anti-inflammatory Drug Start: 05-28-2020 End: 04-20-2022 take 1 tablet by mouth twice daily as needed for pain naproxen (NAPROSYN) 500 mg tablet Indications: Acute pain of right shoulder Take 1 tablet by mouth twice daily as needed for Pain. Take with food. 120 tablet 05/28/2020 04/20/2022 Discontinued Comment on above: [facility] as needed for Pain. Take with food. ondansetron 4 mg disintegrating oral tablet (2 sources) Serotonin-3 Receptor Antagonist Start: 08-24-2023 End: 01-07-2025 take 1 tablet by mouth every eight hours as needed for nausea Ondansetron 4 mg tablet,disintegrat ing Discontinued 4 mg PO EVERY 8 HOURS NEEDED as needed for Nausea 10 August 24, 2023 1:00am January 07, 2025 6:54am predniSONE 10 mg oral tablet (1 source) Start: 01-07-2025 End: 04-15-2025 take 4 tablets by mouth once daily, then take 3 tablets by mouth once daily, then take 2 tablets by mouth once daily, then take 1 tablet by mouth once daily Prednisone 10 mg tablet Discontinued 10 mg PO DAILY 30 0 January 07, 2025 12:00am April 15, 2025 8:40am 4 tablets daily x3 days, then 3 tablets daily x3 days, then 2 tablets daily x3 days, then 1 tablet daily x3 days Problems Active Problems Problem Classification Problem Date Documented Da te Episodic/Chronic Abdominal pain (2 sources) Abdominal pain; Translations: [Unspecified abdominal pain] 08-24-2023 Episodic Allergic reactions (2 sources) Allergic disorder of skin; Translations: [Allergic contact dermatitis, unspecified cause] 01-07-2025 Episodic Cardiac dysrhythmias (3 sources) Ventricular premature complex; Translations: [Ventricular premature depolarization] 04-28-2023 Chronic Contraceptive and procreative management (1 source) Intrauterine contraceptive device in situ; Translations: [Encounter for routine checking of intrauterine contraceptive device] Episodic Diseases of mouth; excluding dental (1 source) Parotitis; Translations: [Acute sialoadenitis] Episodic Disorders of lipid metabolism (20 sources) Dyslipidemia; Translations: [Hyperlipidemia, unspecified] Onset: 6 02-18-2017 Chronic Disorders usually diagnosed in infancy, childhood, or adolescence (20 sources) Attention deficit hyperactivity disorder, predominantly inattentive type; Translations: [Other specified behavioral and emotional disorders with onset usually occurring in childhood and adolescence] Onset: 6 09-21-2021 Chronic Essential hypertension (20 sources) Essential hypertension; Translations: [Essential (primary) hypertension] Onset: 2 Chronic Menopausal disorders (2 sources) Menorrhagia; Translations: [Excessive bleeding in the premenopausal period] Chronic Menstrual disorders (3 sources) Menometrorrhagia; Translations: [Excessive and frequent menstruation with irregular cycle] Chronic Mood disorders (2 sources) Recurrent major depressive episodes, mild ; Translations: [Major depressive disorder, recurrent, mild] Chronic Mycoses (1 source) Candidiasis of vagina; Translations: [Candidiasis of vulva and vagina] Episodic Osteoarthritis (20 sources) Arthritis; Translations: [Unspecified osteoarthritis, unspecified site] Onset: 6 06-12-2021 Chronic Other connective tissue disease (2 sources) Calcific tendinitis; Translations: [Calcific tendinitis, unspecified site] 02-08-2024 Episodic Other connective tissue disease (20 sources) Calcific tendinitis of right shoulder; Translations: [Calcific tendinitis of right shoulder] Onset: 4 02-22-2024 Episodic Other gastrointestinal disorders (2 sources) Diarrhea; Translations: [Diarrhea, unspecified] 04-15-2025 Episodic Other gastrointestinal disorders (2 sources) Abdominal bloating; Translations: [Abdominal distension (gaseous)] 04-15-2025 Episodic Other lower respiratory disease (1 source) Cough; Translations: [Acute cough] 12-22-2023 Episodic Other nervous system disorders (20 sources) Sleep related bruxism; Translations: [Sleep related bruxism] Onset: 1 05-05-2021 Chronic Other upper respiratory disease (20 sources) Seasonal allergy; Translations: [Other seasonal allergic rhinitis] Onset: 6 03-13-2016 Chronic Regional enteritis and ulcerative colitis (20 sources) Proctosigmoiditis; 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] Onset: 6 09-21-2021 Chronic Residual codes; unclassified (2 sources) Sleep apnea, unspecified; Translations: [Sleep apnea, unspecified] Onset: 4 Chronic Residual codes; unclassified (2 sources) Pain; Translations: [Pain, unspecified] 02-06-2024 Episodic Residual codes; unclassified (2 sources) History of palpitations; Translations: [Personal history of other specified conditions] 01-07-2025 Episodic Spondylosis; intervertebral disc disorders; other back problems (1 source) Neck pain; Translations: [Cervicalgia] Episodic Unclassified (12 sources) Tendon Injection (Shoulder) Pre Onset: 4 02-23-2024 Unclassified (1 source) Acute cough; Translations: [Acute cough] Onset: 4 Past or Other Problems Problem Classification Problem Date Documented Da te Episodic/Chronic Other connective tissue disease (20 sources) Myofascial pain with referral; Translations: [Myalgia, other site] Onset: 05-05-2021 05-05-2021 Episodic Other connective tissue disease (1 source) Calcific tendinitis of right shoulder; Translations: [Calcific tendinitis of right shoulder] Onset: 03-09-2024 Episodic Other connective tissue disease (1 source) Calcific tendinitis, unspecified site; Translations: [Calcific tendonitis] Onset: 02-23-2024 Episodic Other endocrine disorders (1 source) Endocrine disorder, unspecified; Translations: [Unspecified endocrine disorder] Onset: 07-07-2023 Episodic Other non-traumatic joint disorders (20 sources) Shoulder pain; Translations: [Pain in right shoulder] Onset: 07-24-2020 07-24-2020 Episodic Other non-traumatic joint disorders (20 sources) Pain in right shoulder; Translations: [Pain in joint, shoulder region] Onset: 07-24-2020 07-24-2020 Episodic Other screening for suspected conditions (not mental disorders or infectious disease) (20 sources) Patient encounter status; Translations: [Encounter for screening for diabetes mellitus] Onset: 03-13-2016 03-13-2016 Episodic Residual codes; unclassified (2 sources) Pain, unspecified; Translations: [Pain] Onset: 07-07-2023 Episodic Viral infection (20 sources) Verruca vulgaris; Translations: [Viral wart, unspecified] Onset: 02-18-2017 02-18-2017 Episodic Results Test Name Value Interpretation Reference Range Facility Gastroenterology Visit Repor ton 04-15-2025 Gastroenterology Visit Report [facility] [address] [place] [address] OFFICE VISIT Date of Service: 04/15/25 MR#: [id number] Acct: [id number] Name: MENDOZA JOHNSON Rep #: [id number] : 1975 Provider: Axel Castaneda DO Age/Sex: 49/F Location: [facility] [place] Status: Signed Intake Vital Signs 01/07/25 06:54 Height 5 ft 6.5 in Weight: 230 lb 2 oz BMI 36.6 BP 120/80 Position Sitting Pulse 72 Temp 98.2 F Temp Source Oral Pulse Oximetry (%) 97 Oxygen Delivery Method room air Intake Visit Reasons: ABDOMINAL DISCOMFORT Allergies No Known Allergies Allergy (Verified 01/07/25 06:54) Medications ???Medication ???Instructions ???Recorded ???Confirmed ???Type escitalopram oxalate 10 mg tablet 10 mg PO DAILY 04/28/23 04/15/25 History lisinopril 20 mg tablet 20 mg PO DAILY 04/28/23 04/15/25 H istory Nurse's Note: Pt was scheduled for EGD and Colonoscopy on 05.30.25 at the end of their appt today. Reviewed prep instructions and which medications to hold prior to procedure with pt in office. A paper copy of Miralax prep instructions were given to pt. Pt denies any questions or concerns at this time. [facility] Medical History (Updated 04/15/25 @ 09:[address] Reyna Friend, DO) Arthritis IBS (irritable bowel syndrome) History of palpitations Allergic dermatitis Hypothyroidism Osteoporosis Hypertension Surgical History History of appendectomy Social History household members: spouse Smoking Status: Never smoker alcohol intake: current alcohol intake frequency: holidays/special occasions only substance use type: does not use HPI HPI Details: MENDOZA JOHNSON, is a 49 F who presents to the office today for follow up. *[facility] established 7.. pt reports with long history of what she describes as IBS symptoms. Pt reports she will eat, her stomach will hurt, and then she will have diarrhea. Pt reports it does not seem to matter what she has eaten. Reports she has cut out gluten before and while it helped her joints, she did not notice a change in GI symptoms. Pt reports she has started having abd pain and bloating with her diarrhea recently. In November of this year noticed a rash on her thighs and stomach, her told her it looks like petechia, urgent care referred her to dermatology for it. Pt reports her last colonoscopy was 10+ years ago. ROS Const Constitutional: Positive for fatigue and weight change (weight [place]); No fever(s) ENT ENT: No difficulty swallowing Gastro GI: Positive for abdominal pain, bloating, change in bowel habits, diarrhea, heartburn, excessive flatus and nausea/dyspepsia; No belching, change in stool character, coffee ground emesis, constipation, cramping, difficulty swallowing, feeling full early, incontinent of stools, Vomiting blood/hematemesis, Blood in stool, loose stools, Black,tarry stools, pain with swallowing, vomiting or other Musc Musculoskeletal: Positive for joint pain, back pain, joint swelling, Arthritis, sciatica and restless legs Skin Skin: Positive for rash; No yellowing of the eye or itchy eyes Neuro Neurology: Positive for restless legs Psych Psychiatric: No anxiety and Positive for depression Endo Endocrine: Positive for fatigue and weight change (weight [place]) Aller/Imm Allergy/Immunologic: No itchy eyes Syed/Lymp Hematologic/Lymphatic : No easy bleeding or easy bruising Exam Const General: cooperative, healthy appearing and no acute distress Orientation: alert and awake Eyes General: appearance normal, both eyes and all related structures Chest Chest palpation inspection: normal inspection of the chest Resp Effort Inspection: normal respiratory effort and able to speak in complete sentences Auscultation: Bilateral: Clear to Auscultation Cardio Palpation: normal PMI Rate: regular rate Rhythm: regular rhythm Heart Sounds: S1 normal, S2 normal, no gallops, no murmurs and no rubs Pulses: radial pulses present GI Inspection: normal to inspection Palpation: soft Neuro General: patient alert and patient awake Cognition: normal cognition Speech: speech normal Psych Appearance: grossly normal Mental Status: mental status grossly normal Mood: congruent mood Affect: normal affect Speech and Movement: speech and movement normal Attitude: cooperative Assessment and Plan Assessment and Plan (1) Diarrhea: Status: Acute (2) Bloating: Status: Acute Plan: This is a very pleasant 49-year-old with past medical history of mild depression, hypertension who arrives here for evaluation of abdominal pain, bloating and diarrhea. Patient says this has been going on for multiple years. She did see Dr. Prashant Ortiz in the pa (more content not included)... Normal [facility] Urgent Care Visit Reporton 0 01-07-2025 Urgent Care Visit Report [facility] [address] [place] [address] OFFICE VISIT Date of Service: 01/07/25 MR#: [id number] Acct: [id number] Name: MENDOZA JOHNSON Rep #: [id number] : 1975 Provider: BHUMIKA Carver Age/Sex: 49/F Location: [facility] [place] Status: Signed Intake Vital Signs 08/24/23 20:44 01/07/25 06:54 Height 5 ft 6 in 5 ft 6.5 in Weight: 230 lb 2 oz BMI 36.6 BP 120/80 Position Sitting Pulse 72 Temp 98.2 F Temp Source Oral Pulse Oximetry (%) 97 Oxygen Delivery Method room air Intake Visit Reasons: Rash Accompanied by: Self Allergies No Known Allergies Allergy (Verified 01/07/25 06:54) Nurse's Note: Patient has a rash on her left leg from her foot to her thigh and up on her abdominal. Patient noticed it 2 weeks ago on her abdominal and she states it starting to get better and then on Tuesday she noticed it on her left leg and then this am after the shower she noticed it was back on her abdomen. [facility] Medical History (Updated 01/07/25 @ 07:49 by Rojelio BAI, PA) History of palpitations Allergic dermatitis Hypothyroidism Osteoporosis Hypertension Surgical History History of appendectomy Social History household members: spouse Smoking Status: Never smoker alcohol intake: current alcohol intake frequency: holidays/special occasions only substance use type: does not use HPI HPI Details: MENDOZA JOHNSON, is a 49 F who presents to the office today for nontender nonpruritic rash initially throughout left leg though spreading to right leg and anterior torso x 2weeks. She noted the rash is actually improving initially and then 3 days ago was started to recur/worsen once again. At no point has the rash irritated her/causing her discomfort, but nonetheless she plans on leaving the country in less than a week and wanted to get her symptoms addressed before leaving. No complaints of constricted/pruritic airway. She does note additionally over the last couple months intermittently feeling her heart palpitate, stating she had never had such symptoms before; she notes no complaints of chest pressure with shortness of breath or dyspnea on exertion when the palpitations occur, nonetheless felt was appropriate to bring up at this time. She has not seen her PCP or any other specialists for above complaints. Lastly, she does note having a history of elevated blood work regarding rheumatology markers (presumably ESR and CRP) though patient unsure specifically what markers were elevated, and notes victor manuel villanueva is currently not being treated for any rheumatologic disorders at this time though does admit to chronic complaints of hand pain in particular. ROS Const Constitutional: No other (As above) Exam Const General: cooperative, healthy appearing and no acute distress Orientation: alert and awake [facility] Head: normal to inspection Ears: hearing grossly normal bilaterally, external ears normal, TM's normal bilaterally and EAC's normal Nose: external nose normal, nares normal, septum normal and no nasal discharge Face and sinus: normal facial exam and face symmetric Mouth: oral mucosae normal, lip normal, tongue normal, oropharynx normal and moist mucous membranes Throat: posterior oropharynx normal, tonsils normal and uvula midline Eyes General: appearance normal, both eyes and all related structures Neck Neck: normal visual inspection, full ROM, no lymphadenopathy, no meningeal signs and supple Neck mass: No Thyroid: thyroid normal Lymphatic: no lymphadenopathy noted Chest Chest palpation inspection: normal inspection of the chest Resp Effort Inspection: normal respiratory effort and able to speak in complete sentences Auscultation: Bilateral: Clear to Auscultation Cardio Palpation: normal PMI Rate: regular rate Rhythm: regular rhythm Heart Sounds: S1 normal, S2 normal, no gallops, no murmurs and no rubs Pulses: radial pulses present GI Inspection: normal to inspection Palpation: soft Skin General: no rashes or lesions noted Other: Except erythematous flat macular rash evenly distributed throughout abdomen. Only visualized left lower leg shoes distributed in the same pattern, though patient notes that throughout her left thigh and right leg in the same pattern as well. Neuro General: patient alert and patient awake Cognition: normal cognition Speech: speech normal Psych Appearance: grossly normal Mental Status: mental status grossly normal Mood: congruent mood Affect: normal affect Speech and Movement: speech and movement normal Attitude: cooperative Coding Level of Care Code Off vis,new,level 3 Diagnoses Allergic dermatitis L23.9 History of palpita (more content not included)... Normal [facility] CNTHERAPYon 06-14-2024 CNTHERAPY OT/PT/Speech Visit (PTWS) MENDOZA JOHNSON ([id number]) 1975 F Date Time Provider Department 06/14/24 9:30 AM ELIZ SIFUENTES PTWS Date Time Provider Department Center 06/14/2024 9:30 AM [id number] SIFUENTES PTWS Mae Knowles Reason for Visit: PT Discharge [752] Primary Visit Diagnosis:Calcific tendinitis of right shoulder [M75.31] Allergies As of Date: 06/14/2024 Noted Allergy Reaction TREE AND SHRUB POLLEN 09/01/2020 14 - Other: See Comments Comments: seasonal Date Reviewed: 03/09/2024 Reviewed by: Chey Plata DO - Fully Assessed Prescriptions as of 06/14/2024 - meloxicam (MOBIC) 7.5 mg tablet Take 1 tablet by mouth once daily. - oxyCODONE-acetaminoph en (PERCOCET) 5-325 mg tablet - methylPREDNISolone (MEDROL, SEAN,) 4 mg Dose-Pack As Instructed per package - escitalopram oxalate (LEXAPRO) 10 mg tablet Take 1 tablet by mouth once daily. - lisinopril (ZESTRIL) 20 mg tablet Take 1 tablet by mouth once daily. - levonorgestrel (MIRENA) 20 mcg/24 hours (8 yrs) 52 mg IUD 1 Each by INTRAUTERINE route one time only. - cetirizine (ZYRTEC) 10 mg tablet Take 1 tablet by mouth once daily. Academic Dean: Addendum Therapy (PT/OT/Speech/Resp) ID: [id number] 06/14/2024 10:01 AM Author: ELIZ SIFUENTES Signed by ELIZ SIFUENTES PT on 06/14/2024 at 10:01 AM * * * This document replaces document [id number] * * * Document text: Program_ID:[id number] Access Code: [email or web address] URL: [email or web address]/ Date: 06-14-2024 Prepared By: Eliz Sifuentes Program Notes Exercises - cc MSI UE Lower Trapezius Facing Wall - 1 x daily - 7 x weekly - 3-4 sets - 10 reps - Shoulder Scaption Wall Slide with Towel - 1 x daily - 7 x weekly - 2 sets - 10 reps - Standing Shoulder Extension with Dowel - 1 x daily - 7 x weekly - 2-3 sets - 15 reps - Standing Shoulder External Rotation with Resistance - 1 x daily - 7 x weekly - 4 sets - 12 reps - Standing Bilateral Shoulder Internal Rotation AAROM with Dowel - 1 x daily - 7 x weekly - 3-4 sets - 15 reps ----- Normal [facility] THERAPY NTon 06-14-2024 THERAPY NT HNO ID: [id number] Author: ELIZ SIFUENTES PT Service: ? Author Type: Physical Therapist Type: Therapy (PT/OT/Speech/Resp) Filed: 06/14/2024 10:01 Note Text: Program_ID:[id number] Access Code: [email or web address] URL: [email or web address] Date: 06-14-2024 Prepared By: Eliz Sifuentes Program Notes Exercises - cc MSI UE Lower Trapezius Facing Wall - 1 x daily - 7 x weekly - 3-4 sets - 10 reps - Shoulder Scaption Wall Slide with Towel - 1 x daily - 7 x weekly - 2 sets - 10 reps - Standing Shoulder Extension with Dowel - 1 x daily - 7 x weekly - 2-3 sets - 15 reps - Standing Shoulder External Rotation with Resistance - 1 x daily - 7 x weekly - 4 sets - 12 reps - Standing Bilateral Shoulder Internal Rotation AAROM with Dowel - 1 x daily - 7 x weekly - 3-4 sets - 15 reps Normal [facility] CNTHERAPYon 06-01-2024 CNTHERAPY OT/PT/Speech Visit (PTWS) MENDOZA JOHNSON ([id number]) 1975 F Date Time Provider Department 06/01/24 9:30 AM FARRAH WHITING PTWS Date Time Provider Department Center 06/01/2024 9:30 AM [id number], MARIAH PTWS Mae Knowles Reason for Visit: Physical Therapy [503] Primary Visit Diagnosis:Calcific tendinitis of right shoulder [M75.31] Allergies As of Date: 06/01/2024 Noted Allergy Reaction TREE AND SHRUB POLLEN 09/01/2020 14 - Other: See Comments Comments: seasonal Date Reviewed: 03/09/2024 Reviewed by: Chey Plata DO - Fully Assessed Prescriptions as of 06/04/2024 - meloxicam (MOBIC) 7.5 mg tablet Take 1 tablet by mouth once daily. - oxyCODONE-acetaminoph en (PERCOCET) 5-325 mg tablet - methylPREDNISolone (MEDROL, SEAN,) 4 mg Dose-Pack As Instructed per package - escitalopram oxalate (LEXAPRO) 10 mg tablet Take 1 tablet by mouth once daily. - lisinopril (ZESTRIL) 20 mg tablet Take 1 tablet by mouth once daily. - levonorgestrel (MIRENA) 20 mcg/24 hours (8 yrs) 52 mg IUD 1 Each by INTRAUTERINE route one time only. - cetirizine (ZYRTEC) 10 mg tablet Take 1 tablet by mouth once daily. Normal [facility] CNTHERAPYon 05-22-2024 CNTHERAPY OT/PT/Speech Visit (PTWS) MENDOZA JOHNSON ([id number]) 1975 F Date Time Provider Department 05/22/24 3:00 PM ELIZ SIFUENTES PTWS Date Time Provider Department Center 05/22/2024 3:00 PM [id number] SIFUENTES PTWS Mae Knowles Reason for Visit: Physical Therapy [503] Primary Visit Diagnosis:Calcific tendinitis of right shoulder [M75.31] Allergies As of Date: 05/22/2024 Noted Allergy Reaction TREE AND SHRUB POLLEN 09/01/2020 14 - Other: See Comments Comments: seasonal Date Reviewed: 03/09/2024 Reviewed by: Chey Plata DO - Fully Assessed Prescriptions as of 05/22/2024 - meloxicam (MOBIC) 7.5 mg tablet Take 1 tablet by mouth once daily. - oxyCODONE-acetaminoph en (PERCOCET) 5-325 mg tablet - methylPREDNISolone (MEDROL, SEAN,) 4 mg Dose-Pack As Instructed per package - escitalopram oxalate (LEXAPRO) 10 mg tablet Take 1 tablet by mouth once daily. - lisinopril (ZESTRIL) 20 mg tablet Take 1 tablet by mouth once daily. - levonorgestrel (MIRENA) 20 mcg/24 hours (8 yrs) 52 mg IUD 1 Each by INTRAUTERINE route one time only. - cetirizine (ZYRTEC) 10 mg tablet Take 1 tablet by mouth once daily. Normal [facility] [id number] 05-15-2024 [id number] O ID: [id number] Author: ELIZ SIFUENTES PT Service: ? Author Type: Physical Therapist Type: [id number] Filed: 05/15/2024 15:35 Note Text: [facility] Physical Therapy Plan of Care Certification Patient Name: Mendoza Johnson : 1975 CC #: [id number] Date: 05/15/2024 To: Chey Plata DO From Therapist: Eliz Sifuentes PT RE: Patient Certification/ Recertification Your review, approval and electronic signature are required in order to comply with Payor: MMO / Plan: [facility] / Product Type: PPO / regulations. The identified Physical Therapy PLAN OF CARE for the patient is as follows: M75.31 Calcific tendinitis of right shoulder (primary encounter diagnosis) PLAN OF CARE UPDATE: Assessment: Mendoza Johnson demonstrates improvements in use hand with arm at shoulder level and driving. She has progressed toward goals. Patient continues to present with impairments in ADL's, flexibility, independence in exercise, joint mobility, overall function, patient reported outcome measures, posture, range of motion, strength, symptom management, and tissue tenderness that interfere with reaching behind back, reaching overhead, working, lifting, recreational activities, physical activities (reaching out and to the side) . Current prognosis is Good due to: within-session changes, current objective clinical presentation, good overall health status, acuteness of condition, good support system/ coping skills . She will benefit from continued skilled therapy services to meet the updated goals for this plan of care as noted below. Goals for Episode of Care: created on 03/27/24 through 05/22/24 Goals updated on 05/15/2024 through 06/26/24 [place] in home exercise program. -- MET Patient will decrease pain rating by 2 points to meet minimal clinical important difference for numeric pain rating scale. -- MET Patient will increase active ROM of right shoulder FE to 160 degrees or greater pain free per pt. report to allow pt to to improve performance of ADLs. -- scaption plane met, abd and flexion -- PROGRESSING Patient will increase flexibility of right UT and levator scapulae to WNL to improve ability to maintain proper posture and decrease pain. -- PROGRESSING Perform reaching behind the back and behind the head with decreased report of symptoms/pain in 8 weeks. -- PROGRESSING Patient Goals: restore AROM of R shoulder without limitations due to pain -- PROGRESSING Patient Goals: restore AROM of R shoulder without limitations due to pain Planned Interventions, Frequency, and Duration: 1x/week, 6 weeks Total Number of Visits Planned: 6 Patient to be seen for Gait Training (50546), Self-fci management (41760), Therapeutic activities (63939), Manual therapy (03806), Therapeutic exercise (77476), Neuromuscular re-education (54986) PLAN FOR NEXT VISIT: assess symptom response with scapular stabilization using theraband resistance For further details regarding this patient refer to the Physical Therapy electronically documented visit dated 05/15/2024. Provider Attestation I have reviewed the treatment plan for Mendoza Johnson, [facility]# [id number] for the period of 05/15/24 -- 06/26/24, established on 05/15/2024. Signature certifies the need for therapy services. Normal [facility] CNTHERAPYon 05-15-2024 CNTHERAPY OT/PT/Speech Visit (PTWS) MENDOZA JOHNSON ([id number]) 1975 F Date Time Provider Department 05/15/24 3:00 PM ELIZ SIFUENTES PTWS Date Time Provider Department Center 05/15/2024 3:00 PM [id number] SIFUENTES PTWS Mae Knowles Reason for Visit: PT Progress Note [1596] Primary Visit Diagnosis:Calcific tendinitis of right shoulder [M75.31] Allergies As of Date: 05/15/2024 Noted Allergy Reaction TREE AND SHRUB POLLEN 09/01/2020 14 - Other: See Comments Comments: seasonal Date Reviewed: 03/09/2024 Reviewed by: Chey Plata, - Fully Assessed Prescriptions as of 05/15/2024 - meloxicam (MOBIC) 7.5 mg tablet Take 1 tablet by mouth once daily. - oxyCODONE-acetaminoph en (PERCOCET) 5-325 mg tablet - methylPREDNISolone (MEDROL, SEAN,) 4 mg Dose-Pack As Instructed per package - escitalopram oxalate (LEXAPRO) 10 mg tablet Take 1 tablet by mouth once daily. - lisinopril (ZESTRIL) 20 mg tablet Take 1 tablet by mouth once daily. - levonorgestrel (MIRENA) 20 mcg/24 hours (8 yrs) 52 mg IUD 1 Each by INTRAUTERINE route one time only. - cetirizine (ZYRTEC) 10 mg tablet Take 1 tablet by mouth once daily. Academic Dean: Addendum Therapy (PT/OT/Speech/Resp) ID: [id number] 05/15/2024 3:24 PM Author: ELIZ SIFUENTES Signed by ELIZ SIFUENTES PT on 05/15/2024 at 3:24 PM * * * This document replaces document [id number] * * * Document text: Program_ID:[id number] Access Code: [email or web address] URL: [email or web address] Date: 05-15-2024 Prepared By: Eliz Sifuentes Program Notes Exercises - Seated Shoulder Shrug Circles AROM Backward - 1 x daily - 7 x weekly - 2 sets - 20 reps - Shoulder External Rotation and Scapular Retraction with Resistance - 1 x daily - 7 x weekly - 3 sets - 1 reps - Shoulder External Rotation and Scapular Retraction with Resistance - 1 x daily - 7 x weekly - 3-4 sets - 15 reps - Horizontal Wall Walk with Resistance - 1 x daily - 7 x weekly - 4 sets - 8-10 reps - Shoulder Flexion Wall Walk - 1 x daily - 7 x weekly - 4 sets - 8-10 reps ----- Normal [facility] THERAPY NTon 05-15-2024 THERAPY NT HNO ID: [id number] Author: ELIZ SIFUENTES PT Service: ? Author Type: Physical Therapist Type: Therapy (PT/OT/Speech/Resp) Filed: 05/15/2024 15:24 Note Text: Program_ID:[id number] Access Code: [email or web address] URL: [email or web address] Date: 05-15-2024 Prepared By: Eliz Sifuentes Program Notes Exercises - Seated Shoulder Shrug Circles AROM Backward - 1 x daily - 7 x weekly - 2 sets - 20 reps - Shoulder External Rotation and Scapular Retraction with Resistance - 1 x daily - 7 x weekly - 3 sets - 1 reps - Shoulder External Rotation and Scapular Retraction with Resistance - 1 x daily - 7 x weekly - 3-4 sets - 15 reps - Horizontal Wall Walk with Resistance - 1 x daily - 7 x weekly - 4 sets - 8-10 reps - Shoulder Flexion Wall Walk - 1 x daily - 7 x weekly - 4 sets - 8-10 reps Normal [facility] CNTHERAPYon 05-08-2024 CNTHERAPY OT/PT/Speech Visit (PTWS) MENDOZA JOHNSON ([id number]) 1975 F Date Time Provider Department 05/08/24 3:30 PM FARRAH WHITING Date Time Provider Department Center 05/08/2024 3:30 PM [id number], MARIAH PTADRIEN Knowles Reason for Visit: Physical Therapy [503] Primary Visit Diagnosis:Calcific tendinitis of right shoulder [M75.31] Allergies As of Date: 05/08/2024 Noted Allergy Reaction TREE AND SHRUB POLLEN 09/01/2020 14 - Other: See Comments Comments: seasonal Date Reviewed: 03/09/2024 Reviewed by: Chey Plata DO - Fully Assessed Prescriptions as of 05/08/2024 - meloxicam (MOBIC) 7.5 mg tablet Take 1 tablet by mouth once daily. - oxyCODONE-acetaminoph en (PERCOCET) 5-325 mg tablet - methylPREDNISolone (MEDROL, SEAN,) 4 mg Dose-Pack As Instructed per package - escitalopram oxalate (LEXAPRO) 10 mg tablet Take 1 tablet by mouth once daily. - lisinopril (ZESTRIL) 20 mg tablet Take 1 tablet by mouth once daily. - levonorgestrel (MIRENA) 20 mcg/24 hours (8 yrs) 52 mg IUD 1 Each by INTRAUTERINE route one time only. - cetirizine (ZYRTEC) 10 mg tablet Take 1 tablet by mouth once daily. Normal [facility] CNTHERAPYon 05-01-2024 CNTHERAPY OT/PT/Speech Visit (PTWS) MENDOZA JOHNSON ([id number]) 1975 F Date Time Provider Department 05/01/24 3:30 PM FARRAH WHITING Date Time Provider Department [place] 05/01/2024 3:30 PM [id number] WHITING Reason for Visit: Physical Therapy [503] Primary Visit Diagnosis:Calcific tendinitis of right shoulder [M75.31] Allergies As of Date: 05/01/2024 Noted Allergy Reaction TREE AND SHRUB POLLEN 09/01/2020 14 - Other: See Comments Comments: seasonal Date Reviewed: 03/09/2024 Reviewed by: Chey Plata DO - Fully Assessed Prescriptions as of 05/02/2024 - meloxicam (MOBIC) 7.5 mg tablet Take 1 tablet by mouth once daily. - oxyCODONE-acetaminoph en (PERCOCET) 5-325 mg tablet - methylPREDNISolone (MEDROL, SEAN,) 4 mg Dose-Pack As Instructed per package - escitalopram oxalate (LEXAPRO) 10 mg tablet Take 1 tablet by mouth once daily. - lisinopril (ZESTRIL) 20 mg tablet Take 1 tablet by mouth once daily. - levonorgestrel (MIRENA) 20 mcg/24 hours (8 yrs) 52 mg IUD 1 Each by INTRAUTERINE route one time only. - cetirizine (ZYRTEC) 10 mg tablet Take 1 tablet by mouth once daily. Academic Dean: Addendum Therapy (PT/OT/Speech/Resp) ID: [id number] 05/01/2024 4:00 PM Author: FARRAH WHITING Signed by FARRAH WHITING PATIENT CARE ASSISTANT on 05/01/2024 at 4:00 PM * * * This document replaces document [id number] * * * Document text: Program_ID:[id number] Access Code: [email or web address] URL: [email or web address] Date: 05-01-2024 Prepared By: Eliz Sifuentes Program Notes Exercises - Seated Scapular Retraction - 2-3 x daily - 7 x weekly - 2 sets - 15-20 reps - Seated Shoulder Flexion AAROM with Bettina Behind - 1-2 x daily - 7 x weekly - 2-3 sets - 10 reps - Seated Shoulder Scaption AAROM with Bettina at Side - 1-2 x daily - 7 x weekly - 2-3 sets - 10 reps - Seated Shoulder Abduction AAROM with Bettina Behind - 1-2 x daily - 7 x weekly - 2-3 sets - 10 reps - Isometric Shoulder Flexion at Wall - 1 x daily - 7 x weekly - 2-3 sets - 10 reps - Isometric Shoulder Extension at Wall - 1 x daily - 7 x weekly - 2-3 sets - 10 reps - Standing Shoulder Abduction AAROM with Dowel - 2 x daily - 7 x weekly - 2 sets - 10 reps - Standing Shoulder Flexion AAROM with Dowel - 2 x daily - 7 x weekly - 2 sets - 10 reps - Standing Shoulder External Rotation AAROM with Dowel - 2 x daily - 7 x weekly - 2 sets - 10 reps ----- Normal [facility] THERAPY NTon 05-01-2024 THERAPY NT HNO ID: [id number] Author: FARRAH WHITING PTA Service: ? Author Type: Franchise Sales Manager Type: Therapy (PT/OT/Speech/Resp) Filed: 05/01/2024 16:00 Note Text: Program_ID:[id number] Access Code: [email or web address] URL: [email or web address] Date: 05-01-2024 Prepared By: Eliz Sifuentes Program Notes Exercises - Seated Scapular Retraction - 2-3 x daily - 7 x weekly - 2 sets - 15-20 reps - Seated Shoulder Flexion AAROM with Bettina Behind - 1-2 x daily - 7 x weekly - 2-3 sets - 10 reps - Seated Shoulder Scaption AAROM with Bettina at Side - 1-2 x daily - 7 x weekly - 2-3 sets - 10 reps - Seated Shoulder Abduction AAROM with Bettina Behind - 1-2 x daily - 7 x weekly - 2-3 sets - 10 reps - Isometric Shoulder Flexion at Wall - 1 x daily - 7 x weekly - 2-3 sets - 10 reps - Isometric Shoulder Extension at Wall - 1 x daily - 7 x weekly - 2-3 sets - 10 reps - Standing Shoulder Abduction AAROM with Dowel - 2 x daily - 7 x weekly - 2 sets - 10 reps - Standing Shoulder Flexion AAROM with Dowel - 2 x daily - 7 x weekly - 2 sets - 10 reps - Standing Shoulder External Rotation AAROM with Dowel - 2 x daily - 7 x weekly - 2 sets - 10 reps Normal [facility] CNTHERAPYon 04-10-2024 CNTHERAPY OT/PT/Speech Visit (PTWS) MENDOZA JOHNSON ([id number]) 1975 F Date Time Provider Department 04/10/24 2:45 PM FARRAH WHITING PTWS Date Time Provider Department Center 04/10/2024 2:45 PM [id number], MARIAH PTADRIEN Mae Mill Reason for Visit: Physical Therapy [503] Primary Visit Diagnosis:Calcific tendinitis of right shoulder [M75.31] Allergies As of Date: 04/10/2024 Noted Allergy Reaction TREE AND SHRUB POLLEN 09/01/2020 14 - Other: See Comments Comments: seasonal Date Reviewed: 03/09/2024 Reviewed by: Chey Plata DO - Fully Assessed Prescriptions as of 04/10/2024 - meloxicam (MOBIC) 7.5 mg tablet Take 1 tablet by mouth once daily. - oxyCODONE-acetaminoph en (PERCOCET) 5-325 mg tablet - methylPREDNISolone (MEDROL, SEAN,) 4 mg Dose-Pack As Instructed per package - escitalopram oxalate (LEXAPRO) 10 mg tablet Take 1 tablet by mouth once daily. - lisinopril (ZESTRIL) 20 mg tablet Take 1 tablet by mouth once daily. - levonorgestrel (MIRENA) 20 mcg/24 hours (8 yrs) 52 mg IUD 1 Each by INTRAUTERINE route one time only. - cetirizine (ZYRTEC) 10 mg tablet Take 1 tablet by mouth once daily. Normal [facility] CNTHERAPYon 04-04-2024 CNTHERAPY OT/PT/Speech Visit (PTWS) MENDOZA JOHNSON ([id number]) 1975 F Date Time Provider Department 04/04/24 3:45 PM SIOBHAN PATEL Date Time Provider Department [place] 04/04/2024 3:45 PM [id number] PATEL Mae Benson Reason for Visit: Physical Therapy [503] Primary Visit Diagnosis:Calcific tendinitis of right shoulder [M75.31] Allergies As of Date: 04/04/2024 Noted Allergy Reaction TREE AND SHRUB POLLEN 09/01/2020 14 - Other: See Comments Comments: seasonal Date Reviewed: 03/09/2024 Reviewed by: Chey Plata DO - Fully Assessed Prescriptions as of 04/04/2024 - meloxicam (MOBIC) 7.5 mg tablet Take 1 tablet by mouth once daily. - oxyCODONE-acetaminoph en (PERCOCET) 5-325 mg tablet - methylPREDNISolone (MEDROL, SEAN,) 4 mg Dose-Pack As Instructed per package - escitalopram oxalate (LEXAPRO) 10 mg tablet Take 1 tablet by mouth once daily. - lisinopril (ZESTRIL) 20 mg tablet Take 1 tablet by mouth once daily. - levonorgestrel (MIRENA) 20 mcg/24 hours (8 yrs) 52 mg IUD 1 Each by INTRAUTERINE route one time only. - cetirizine (ZYRTEC) 10 mg tablet Take 1 tablet by mouth once daily. Academic Dean: Therapy (PT/OT/Speech/Resp) ID: [id number] 04/04/2024 4:23 PM Author: SIOBHAN PATEL Signed by SIOBHAN PATEL PT, DPT on 04/04/2024 at 4:23 PM Document text: Program_ID:[id number] Access Code: [email or web address] URL: [email or web address] Date: 04-04-2024 Prepared By: Eliz Sifuentes Program Notes Exercises - Seated Scapular Retraction - 2-3 x daily - 7 x weekly - 2 sets - 15-20 reps - Seated Shoulder Flexion AAROM with Bettina Behind - 1-2 x daily - 7 x weekly - 2-3 sets - 10 reps - Seated Shoulder Scaption AAROM with Bettina at Side - 1-2 x daily - 7 x weekly - 2-3 sets - 10 reps - Seated Shoulder Abduction AAROM with Bettina Behind - 1-2 x daily - 7 x weekly - 2-3 sets - 10 reps - Isometric Shoulder Flexion at Wall - 1 x daily - 7 x weekly - 2-3 sets - 10 reps - Isometric Shoulder Extension at Wall - 1 x daily - 7 x weekly - 2-3 sets - 10 reps ----- Normal [facility] THERAPY NTon 04-04-2024 THERAPY NT HNO ID: [id number] Author: SIOBHAN PATEL, PT, DPT Service: ? Author Type: Physical Therapist Type: Therapy (PT/OT/Speech/Resp) Filed: 04/04/2024 16:23 Note Text: Program_ID:[id number] Access Code: [email or web address] URL: [email or web address] Date: 04-04-2024 Prepared By: Eliz Sifuentes Program Notes Exercises - Seated Scapular Retraction - 2-3 x daily - 7 x weekly - 2 sets - 15-20 reps - Seated Shoulder Flexion AAROM with Bettina Behind - 1-2 x daily - 7 x weekly - 2-3 sets - 10 reps - Seated Shoulder Scaption AAROM with Bettina at Side - 1-2 x daily - 7 x weekly - 2-3 sets - 10 reps - Seated Shoulder Abduction AAROM with Bettina Behind - 1-2 x daily - 7 x weekly - 2-3 sets - 10 reps - Isometric Shoulder Flexion at Wall - 1 x daily - 7 x weekly - 2-3 sets - 10 reps - Isometric Shoulder Extension at Wall - 1 x daily - 7 x weekly - 2-3 sets - 10 reps Normal [facility] [id number] 03-27-2024 [id number] HNO ID: [id number] Author: ELIZ SIFUENTES PT Service: ? Author Type: Physical Therapist Type: [id number] Filed: 03/27/2024 16:27 Note Text: [facility] Therapy Physical Therapy Plan of Care Certification Patient Name: Mendoza Johnson : 1975 [facility] #: [id number] Date: 03/27/2024 To: Chey Plaat, DO From Therapist: Eliz Sifuentes PT RE: Patient Certification/ Recertification Your review, approval and electronic signature are required in order to comply with Payor: MMO / Plan: MMO [facility] PPO / Product Type: PPO / regulations. The identified Physical Therapy PLAN OF CARE for the patient is as follows: M75.31 Calcific tendinitis of right shoulder (primary encounter diagnosis) PLAN OF CARE: Assessment: Mendoza Johnson presents with diagnosis of calcific tendinitis of right shoulder that interferes with reaching behind back, reaching overhead, use hand with arm at shoulder level, driving, working, lifting, recreational activities, physical activities (reaching out and to the side) . She presents with impairments in ADL's, flexibility, independence in exercise, joint mobility, overall function, patient reported outcome measures, posture, range of motion, sensation, soft tissue healing, strength, symptom management, and tissue tenderness. PROMIS? (Patient-Reported Outcomes Measurement Information System) scores were reviewed and identified as a rehabilitation concern. Prognosis for therapy is Good due to: within-session changes, current objective clinical presentation, good overall health status, acuteness of condition, good support system/ coping skills . She will benefit from skilled therapy services to meet the goals established for this plan of care as noted below. Goals for Episode of Care: created on 03/27/24 through 05/22/24 [place] in home exercise program. Patient will decrease pain rating by 2 points to meet minimal clinical important difference for numeric pain rating scale. Patient will increase active ROM of right shoulder FE to 160 degrees or greater pain free per pt. report to allow pt to to improve performance of ADLs. Patient will increase flexibility of right UT and levator scapulae to WNL to improve ability to maintain proper posture and decrease pain. Perform reaching behind the back and behind the head with decreased report of symptoms/pain in 8 weeks. Patient Goals: restore AROM of R shoulder without limitations due to pain Planned Interventions, Frequency, and Duration: Current Frequency: 1x/week Duration: 8 weeks Total Number of Visits Planned: 8 Planned Treatment Interventions: Gait Training (31044), Self-fci management (60099), Therapeutic activities (33373), Manual therapy (03155), Therapeutic exercise (99816), Neuromuscular re-education (19788) PLAN FOR NEXT VISIT: isometrics Patient demonstrates good understanding of plan of care and treatment. The above goals and plan of care were discussed and agreed upon by patient/family. For further details regarding this patient refer to the Physical Therapy electronically documented visit dated 03/27/2024. Provider Attestation I have reviewed the treatment plan for Mendoza Johnson, [facility]# [id number] for the period of 03/27/24 -- 05/22/24, established on 03/27/2024. Signature certifies the need for therapy services. Normal [facility] CNTHERAPYon 03-27-2024 CNTHERAPY OT/PT/Speech Visit (PTWS) MENDOZA JOHNSON ([id number]) 1975 F Date Time Provider Department 03/27/24 3:45 PM ELIZ SIFUENTES PTWS Date Time Provider Department [place] 03/27/2024 3:45 PM [id number]-IELIZ SIFUENTES PTWS Mae Knowles Reason for Visit: PT [place] [747] Primary Visit Diagnosis:Calcific tendinitis of right shoulder [M75.31] Allergies As of Date: 03/27/2024 Noted Allergy Reaction TREE AND SHRUB POLLEN 09/01/2020 14 - Other: See Comments Comments: seasonal Date Reviewed: 03/09/2024 Reviewed by: Chey Plata DO - Fully Assessed Prescriptions as of 03/27/2024 - meloxicam (MOBIC) 7.5 mg tablet Take 1 tablet by mouth once daily. - oxyCODONE-acetaminoph en (PERCOCET) 5-325 mg tablet - methylPREDNISolone (MEDROL, SEAN,) 4 mg Dose-Pack As Instructed per package - escitalopram oxalate (LEXAPRO) 10 mg tablet Take 1 tablet by mouth once daily. - lisinopril (ZESTRIL) 20 mg tablet Take 1 tablet by mouth once daily. - levonorgestrel (MIRENA) 20 mcg/24 hours (8 yrs) 52 mg IUD 1 Each by INTRAUTERINE route one time only. - cetirizine (ZYRTEC) 10 mg tablet Take 1 tablet by mouth once daily. Academic Dean: Addendum Therapy (PT/OT/Speech/Resp) ID: [id number] 03/27/2024 4:05 PM Author: ELIZ SIFUENTES Signed by ELIZ SIFUENTES PT on 03/27/2024 at 4:05 PM * * * This document replaces document [id number] * * * Document text: Program_ID:[id number] Access Code: [email or web address] URL: [email or web address] Date: 03-27-2024 Prepared By: Eliz Sifuentes Program Notes Exercises - Seated Scapular Retraction - 2-3 x daily - 7 x weekly - 2 sets - 15-20 reps - Seated Shoulder Flexion AAROM with Bettina Behind - 1-2 x daily - 7 x weekly - 2-3 sets - 10 reps - Seated Shoulder Scaption AAROM with Bettina at Side - 1-2 x daily - 7 x weekly - 2-3 sets - 10 reps - Seated Shoulder Abduction AAROM with Bettina Behind - 1-2 x daily - 7 x weekly - 2-3 sets - 10 reps ----- Normal [facility] THERAPY NTon 03-27-2024 THERAPY NT HNO ID: [id number] Author: ELIZ SIFUENTES, PT Service: ? Author Type: Physical Therapist Type: Therapy (PT/OT/Speech/Resp) Filed: 03/27/2024 16:05 Note Text: Program_ID:[id number] Access Code: [email or web address] URL: [email or web address] Date: 03-27-2024 Prepared By: Eliz Sifuentes Program Notes Exercises - Seated Scapular Retraction - 2-3 x daily - 7 x weekly - 2 sets - 15-20 reps - Seated Shoulder Flexion AAROM with Bettina Behind - 1-2 x daily - 7 x weekly - 2-3 sets - 10 reps - Seated Shoulder Scaption AAROM with Bettina at Side - 1-2 x daily - 7 x weekly - 2-3 sets - 10 reps - Seated Shoulder Abduction AAROM with Bettina Behind - 1-2 x daily - 7 x weekly - 2-3 sets - 10 reps Normal [facility] CNOVon 03-09-2024 CNOV Office Visit (ORAVON ) MENDOZA JOHNSON ([id number]) 1975 F Date Time Provider Department 03/09/24 9:15 AM CHEY PLATA During your visit today, we recorded the following information about you: Chey Plata, DO 03/09/2024 9:24 AM Signed Follow-up with me in 6 weeks, can be virtual Follow-up with PT in 2-3 weeks Chey Plata, DO 03/09/2024 1:14 PM Signed Minimally Invasive Tenotomy Informed Consent Consent Obtained: Verbal [place] Protocol A moment to CARE was completed. SIGN IN Personnel directly involved with the procedure wore the appropriate PPE. Special Equipment: N/A Patient/Surrogate Stated/Verified: Patient name, Date of , Relevant allergies and Intended procedure TIME OUT Intended patient and procedure match the source document(s). Consent documented and matches the intended procedure. Relevant labs, photos, and/or imaging studies have been reviewed. Correct side/site marked and visible. Medications required for procedure verified. No fire risk assessment and interventions applicable. No implant(s) inserted. 03/09/2024 1:13 PM The procedure site was prepped in the usual sterile fashion. Site: Right supraspinatous tendon Details:Musculoskelet al ultrasound was utilized to successfully localize placement of the injection needle at the appropriate site. Ultrasound images demonstrating local vasculature and demonstrating injection of solution were saved. Anesthetics: 100 mg lidocaine (PF) 10 mg/mL (1 %) Minimally Invasive Tenotomy (TenJet) The treatment area was cleaned and draped in sterile fashion. Using sterile technique, musculoskeletal ultrasound (MSK-US) was used to successfully localize the area of pathology to be treated today. A mervin with a sterile marker was placed on the skin in the area of the intended incision site. Using sterile technique, the area of treatment was visualized under MSK-US where infiltration of anesthetic was utilized with a guiding needle. A separate injection was utilized to create a skin wheal at the incision site to control procedural bleeding. After acceptable regional anesthesia was reached, a 11-blade scalpel was utilized to make a stab incision at the marked treatment site. The Hydrocision TenJet needle device, under constant physician guided MSK-US visualization, was inserted to the area of pathological tissue. Maintaining this visualization, degenerative tissue was debrided and confirmed by the treating physician. Upon satisfaction of removal of the targeted degenerative tissue, the TenJet needle device was removed, compression was applied to the incisional site with sterile gauze. Bleeding was controlled and sterile strips were applied, with occlusive dressing and compression bandage. Patient left the procedure room in satisfactory condition having tolerated the procedure well. Outcome: tolerated well, no immediate complications Post-injection instructions were reviewed with the patient and the patient voiced understanding of these instructions. Estimated blood loss less than 5 mL no complications, Estimated blood loss less than 5 mL. SIGN OUT All instruments, equipment, possible retained foreign bodies accounted for. Post-procedure follow-up management communicated and Plan of Care Visit completed when applicable Large Joint Arthro/Inj: R subacromial bursa Informed Consent Consent Obtained: Verbal [place] Protocol A moment to CARE was completed. SIGN IN Personnel directly involved with the procedure wore the appropriate PPE. Special Equipment: N/A Patient/Surrogate Stated/Verified: Patient name, Date of , Relevant allergies and Intended procedure TIME OUT Intended patient and procedure match the source document(s). Relevant labs, photos, and/or imaging studies have been reviewed. Correct side/site marked and visible. Medications required for procedure verified. No fire risk assessment and interventions applicable. No implant(s) inserted. 03/09/2024 1:14 PM The procedure site was prepped in the usual sterile fashion. Site: R subacromial bursa Details:Musculoskelet al ultrasound was utilized to successfully localize placement of the injection needle at the appropriate site. Ultrasound images demonstrating local vasculature and demonstrating injection of solution were saved. Medications: 60 mg keTORolac 60 mg/2 mL Anesthetics: 2 mL lidocaine (PF) 10 mg/mL (1 %) Outcome: Tolerated well, no immediate complications Post-injection instructions were reviewed with the patient and the patient voiced understanding of these instructions. SIGN OUT All instruments, equipment, possible retained foreign bodies accounted for. Post-procedure follow-up management communicated and Plan of Care Visit completed when applicable DO Jarvis Vaughn Vikas D, DO 03/13/2024 10:48 AM Signed (more content not included)... Normal [facility] Large Joint Arthro/Inj: R frank bacromial bursaon 03-09-2024 Chey Plata, DO 03/09/2024 1:14 PM Large Joint Arthro/Inj: R subacromial bursa Informed Consent Consent Obtained: Verbal [place] Protocol A moment to CARE was completed. SIGN IN Personnel directly involved with the procedure wore the appropriate PPE. Special Equipment: N/A Patient/Surrogate Stated/Verified: Patient name, Date of , Relevant allergies and Intended procedure TIME OUT Intended patient and procedure match the source document(s). Relevant labs, photos, and/or imaging studies have been reviewed. Correct side/site marked and visible. Medications required for procedure verified. No fire risk assessment and interventions applicable. No implant(s) inserted. 03/09/2024 1:14 PM The procedure site was prepped in the usual sterile fashion. Site: R subacromial bursa Details:Musculoskelet al ultrasound was utilized to successfully localize placement of the injection needle at the appropriate site. Ultrasound images demonstrating local vasculature and demonstrating injection of solution were saved. Medications: 60 mg keTORolac 60 mg/2 mL Anesthetics: 2 mL lidocaine (PF) 10 mg/mL (1 %) Outcome: Tolerated well, no immediate complications Post-injection instructions were reviewed with the patient and the patient voiced understanding of these instructions. SIGN OUT All instruments, equipment, possible retained foreign bodies accounted for. Post-procedure follow-up management communicated and Plan of Care Visit completed when applicable [facility] Minimally Invasive Tenotomyo n 03-09-2024 Chey Plata, DO 03/09/2024 1:14 PM Minimally Invasive Tenotomy Informed Consent Consent Obtained: Verbal [place] Protocol A moment to CARE was completed. SIGN IN Personnel directly involved with the procedure wore the appropriate PPE. Special Equipment: N/A Patient/Surrogate Stated/Verified: Patient name, Date of , Relevant allergies and Intended procedure TIME OUT Intended patient and procedure match the source document(s). Consent documented and matches the intended procedure. Relevant labs, photos, and/or imaging studies have been reviewed. Correct side/site marked and visible. Medications required for procedure verified. No fire risk assessment and interventions applicable. No implant(s) inserted. 03/09/2024 1:13 PM The procedure site was prepped in the usual sterile fashion. Site: Right supraspinatous tendon Details:Musculoskelet al ultrasound was utilized to successfully localize placement of the injection needle at the appropriate site. Ultrasound images demonstrating local vasculature and demonstrating injection of solution were saved. Anesthetics: 100 mg lidocaine (PF) 10 mg/mL (1 %) Minimally Invasive Tenotomy (TenJet) The treatment area was cleaned and draped in sterile fashion. Using sterile technique, musculoskeletal ultrasound (MSK-US) was used to successfully localize the area of pathology to be treated today. A mervin with a sterile marker was placed on the skin in the area of the intended incision site. Using sterile technique, the area of treatment was visualized under MSK-US where infiltration of anesthetic was utilized with a guiding needle. A separate injection was utilized to create a skin wheal at the incision site to control procedural bleeding. After acceptable regional anesthesia was reached, a 11-blade scalpel was utilized to make a stab incision at the marked treatment site. The Hydrocision TenJet needle device, under constant physician guided MSK-US visualization, was inserted to the area of pathological tissue. Maintaining this visualization, degenerative tissue was debrided and confirmed by the treating physician. Upon satisfaction of removal of the targeted degenerative tissue, the TenJet needle device was removed, compression was applied to the incisional site with sterile gauze. Bleeding was controlled and sterile strips were applied, with occlusive dressing and compression bandage. Patient left the procedure room in satisfactory condition having tolerated the procedure well. Outcome: tolerated well, no immediate complications Post-injection instructions were reviewed with the patient and the patient voiced understanding of these instructions. Estimated blood loss less than 5 mL no complications, Estimated blood loss less than 5 mL. SIGN OUT All instruments, equipment, possible retained foreign bodies accounted for. Post-procedure follow-up management communicated and Plan of Care Visit completed when applicable [facility] SHOULDER-INJECTION RT (PO C) YURI USE ONLYon 03-09-2024 [facility] SHOULDER RTon 02-23-2024 SHOULDER RT * * *Final Report* * * DATE OF EXAM: Feb 23 2024 2:55PM [facility] 1132 - US SHOULDER RT / PROCEDURE REASON: Calcific tendonitis * * * * Physician Interpretation * * * * MSK_US RIGHT SHOULDER ULTRASOUND: CLINICAL INFORMATION: Calcific tendonitis TECHNIQUE: Weller-scale real-time ultrasound of the shoulder with dynamic imaging and power Doppler imaging was performed. Images were saved to the permanent image archive. v2-20. COMPARISON: X-ray 02/08/2024. RESULT: PECTORALIS MAJOR TENDON: Intact. BICEPS TENDON: Intact and normally positioned. Normal dynamic exam. No tenosynovitis. SUBSCAPULARIS TENDON: Tendinosis: Mild. Tearing: None. SUBACROMIAL SUBDELTOID BURSA: Mild thickening. Mild associated hyperemia. Impingement seen with dynamic exam. SUPRASPINATUS TENDON: Tendinosis: Moderate - with large calcifications primarily mid and posteriorly, measuring approximately 1.7 x 1.3 cm. Tearing: None. INFRASPINATUS TENDON: Tendinosis: None. Tearing: None. POSTERIOR JOINT SPACE: No joint effusion or synovitis. SST/IST/TERES MINOR MUSCLES: Muscle bulk is maintained. No muscle fatty change. ACROMIOCLAVICULAR JOINT: Mild degenerative changes. IMPRESSION: Marked calcific tendinosis supraspinatus, corresponding to findings on radiographs. Mild subacromial/subdeltoi d bursal with mild hyperemia and dynamic impingement. Header Boss: [facility] Transcribe Date/Time: Feb 23 2024 2:56P Dictated by : ENMANUEL BETANCOURT MD This examination was interpreted and the report reviewed and electronically signed by: ENMANUEL BETANCOURT MD on Feb 23 2024 4:25PM EST [id number] Normal [facility] Shoulder - righton 2023 IMPRESSION: Marked calcific tendinosis supraspinatus, corresponding to findings on radiographs. Mild subacromial/subdeltoi d bursal with mild hyperemia and dynamic impingement. Header Boss: [facility] Transcribe Date/Time: Feb 23 2024 2:56P Dictated by : ENMANUEL BETANCOURT MD This examination was interpreted and the report reviewed and electronically signed by: ENMANUEL BETANCOURT MD on Feb 23 2024 4:25PM [facility] DIVISION OF RADIOLOGY * * *Final Report* * * DATE OF EXAM: Feb 23 2024 2:55PM [facility] 113 - SHOULDER RT / PROCEDURE REASON: Calcific tendonitis * * * * Physician Interpretation * * * * MSK_US RIGHT SHOULDER ULTRASOUND: CLINICAL INFORMATION: Calcific tendonitis TECHNIQUE: Weller-scale real-time ultrasound of the shoulder with dynamic imaging and power Doppler imaging was performed. Images were saved to the permanent image archive. v2-20. COMPARISON: X-ray 02/08/2024. RESULT: PECTORALIS MAJOR TENDON: Intact. BICEPS TENDON: Intact and normally positioned. Normal dynamic exam. No tenosynovitis. SUBSCAPULARIS TENDON: Tendinosis: Mild. Tearing: None. SUBACROMIAL SUBDELTOID BURSA: Mild thickening. Mild associated hyperemia. Impingement seen with dynamic exam. SUPRASPINATUS TENDON: Tendinosis: Moderate - with large calcifications primarily mid and posteriorly, measuring approximately 1.7 x 1.3 cm. Tearing: None. INFRASPINATUS TENDON: Tendinosis: None. Tearing: None. POSTERIOR JOINT SPACE: No joint effusion or synovitis. SST/IST/TERES MINOR MUSCLES: Muscle bulk is maintained. No muscle fatty change. ACROMIOCLAVICULAR JOINT: Mild degenerative changes. DIVISION OF RADIOLOGY Provider, [facility] - 02/23/2024 * * *Final Report* * * DATE OF EXAM: Feb 23 2024 2:55PM [facility] 1132 - US SHOULDER RT / PROCEDURE REASON: Calcific tendonitis * * * * Physician Interpretation * * * * MSK_US RIGHT SHOULDER ULTRASOUND: CLINICAL INFORMATION: Calcific tendonitis TECHNIQUE: Weller-scale real-time ultrasound of the shoulder with dynamic imaging and power Doppler imaging was performed. Images were saved to the permanent image archive. v2-20. COMPARISON: X-ray 02/08/2024. RESULT: PECTORALIS MAJOR TENDON: Intact. BICEPS TENDON: Intact and normally positioned. Normal dynamic exam. No tenosynovitis. SUBSCAPULARIS TENDON: Tendinosis: Mild. Tearing: None. SUBACROMIAL SUBDELTOID BURSA: Mild thickening. Mild associated hyperemia. Impingement seen with dynamic exam. SUPRASPINATUS TENDON: Tendinosis: Moderate - with large calcifications primarily mid and posteriorly, measuring approximately 1.7 x 1.3 cm. Tearing: None. INFRASPINATUS TENDON: Tendinosis: None. Tearing: None. POSTERIOR JOINT SPACE: No joint effusion or synovitis. SST/IST/TERES MINOR MUSCLES: Muscle bulk is maintained. No muscle fatty change. ACROMIOCLAVICULAR JOINT: Mild degenerative changes. IMPRESSION IMPRESSION: Marked calcific tendinosis supraspinatus, corresponding to findings on radiographs. Mild subacromial/subdeltoi d bursal with mild hyperemia and dynamic impingement. Header Boss: [facility] Transcribe Date/Time: Feb 23 2024 2:56P Dictated by : ENMANUEL BETANCOURT MD This examination was interpreted and the report reviewed and electronically signed by: ENMANUEL BETANCOURT MD on Feb 23 2024 4:25PM EST [facility] Radiology Study observation (narrative) Venessa lopez [facility] US Shoulder - rightOrdered B y: [facility] Provider on 02-23-2024 [facility] CNOVon 02-22-2024 CNOV Office Visit (LOORRM ) ALEXMENDOZA Izaiah ([id number]) 1975 F Date Time Provider Department 02/22/24 10:45 AM CHEY PLATA LOORRM During your visit today, we recorded the following information about you: Chey Plata DO 02/22/2024 1:09 PM Signed Mendoza Johnson is a patient of Trent Velazquez DO. CHIEF COMPLAINT: Mendoza Johnson is a 48 year old female who presents today for new evaluation of right shoulder. HISTORY OF PRESENT ILLNESS: PAIN EVALUATION 02/22/2024 0836 02/22/2024 1036 Pain Level: 8 5 Pain Location: Shoulder-Right Shoulder-Right Description: Aching;Numbness;Radia ting;Sharp;Throbbing Aching;Shooting;Radia ting;Numbness;Tinglin g;Pressure Duration Amount of Time: 3 3 Duration Units: Weeks Weeks Frequency: Continuous Continuous Intervention/Comfort measure: Medication;Cold Exercise;Medication Comments: -- cortisone injection 2021 Location of pain: right shoulder pain Was there an injury that started this? No Any numbness or tingling? No She notes that this problem exhibits aggravating factors of Overhead activities, Reaching backwards, and Sleeping on the shoulder. She notes that this problem exhibits alleviating factors of Rest and avoidance of aggravating activities. Night Pain: Yes PREVIOUS TREATMENTS: NSAIDs: Yes Injections: Yes, CSI Surgeries: No Physical Therapy: Yes PHYSICAL EXAMINATION: SHOULDER EXAM Flexion: decreased active, normal passive Abduction: decreased active,normal passive External rotation: normal Sonja Test / Empty Can Test (supraspinatus): positive for pain Resisted lateral rotation test (infraspinatus): positive for pain Belly press test (subscapualris): normal examination with no pain or weakness elicited IMAGING: Final results and radiologist's interpretation, available in the [facility] health record. Images were reviewed with the patient/family members in the office today. My personal interpretation of the performed imaging is calcific rotator cuff CLINICAL IMPRESSION / ASSESSMENT: (M75.31) Calcific tendinitis of right shoulder (primary encounter diagnosis) RECOMMENDATION / PLAN: Discussed that she has a combination of right rotator cuff calcific tendinopathy including tendinosis present. Physical examination is consistent with diagnosis as stated above. Given chronicity of symptoms and patient noted sub optimal response to other standard treatment recommendations, discussed options with patient including bracing, surgical approach, exercise and physical therapy prescription, injections including orthobiologics, medication (both oral and topicals), minimally invasive tenotomy, PRP and tenotomy. We discussed the role of minimally invasive percutaneous tenotomy Tenjet in detail today for treatment of the patients right rotator cuff calcific tendinopathy . Patient has voiced understanding of the indications for the procedure, pre- and post-procedure recovery with expected rehabilitation time, the risk and benefit of the minimally invasive percutaneous tenotomy and the expected outcomes. After discussion she understands the complexity of her condition and possibility of further surgical intervention if refractory to minimally invasive tenotomy. At this time, the patient has agreed to proceed with scheduling a date for the procedure. The patient will be enrolled in shoulder health care marketing manager to assist in preparation for procedure. Verbal health education was given to patient. Patient verbalizes understanding and agrees with the treatment plan as detailed above. Chey D Plata, DO Allergies As of Date: 02/22/2024 Noted Allergy Reaction TREE AND SHRUB POLLEN 09/01/2020 14 - Other: See Comments Comments: seasonal Date Reviewed: 02/22/2024 Reviewed by: Chey Plata DO - Fully Assessed Reason for Visit: New [844288] Pain (Shoulder Pain) [1343] Primary Visit Diagnosis:Calcific tendinitis of right shoulder [M75.31] Prescriptions as of 02/22/2024 - oxyCODONE-acetaminoph en (PERCOCET) 5-325 mg tablet - methylPREDNISolone (MEDROL, SEAN,) 4 mg Dose-Pack As Instructed per package - escitalopram oxalate (LEXAPRO) 10 mg tablet Take 1 tablet by mouth once daily. - lisinopril (ZESTRIL) 20 mg tablet Take 1 tablet by mouth once daily. - levonorgestrel (MIRENA) 20 mcg/24 hours (8 yrs) 52 mg IUD 1 Each by INTRAUTERINE route one time only. - Ibuprofen 200 mg cap Take by mouth every 6 hours as needed. - cetirizine (ZYRTEC) 10 mg tablet Take 1 tablet by mouth once daily. 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 [facility] Telephone (LOORRM) MENDOZA JOHNSON ([id number]) 1975 F Date Time Provider Department 02/22/24 CHEY PLATA LOORRM During your visit today, we recorded the following information about you: Kaila Duffy 02/22/2024 4:31 PM Signed Mendoza is calling Chey Plata DO today with concern regarding medication. Patient was under the impression provider was going to prescribe an oral anti-inflammatory, possibly voltaren but nothing was called in and she didn't seen anything on the notes on mychart. Please advise and contact patient with an update. Pharmacy on file is confirmed. Patient has been identified by name and birthdate. Person calling: self Call patient at: at home [phone] (home) [phone] (cell) Was an appointment scheduled: No Closing statement: Symptom Call: Thank you for calling [facility], your call is very important. A nurse will call in approximately 2-4 hours during business hours. If this is an emergency, please contact 911. Chey Leyva DO 02/22/2024 4:46 PM Signed This was discussed, and I did not send the medication. I have now sent the Rx to the pharmacy. Chey Plata DO Allergies As of Date: 02/22/2024 Noted Allergy Reaction TREE AND SHRUB POLLEN 09/01/2020 14 - Other: See Comments Comments: seasonal Date Reviewed: 02/22/2024 Reviewed by: Chey Plata DO - Fully Assessed Reason for Visit: Medication Question [8088] Prescriptions as of 03/07/2024 - meloxicam (MOBIC) 7.5 mg tablet Take 1 tablet by mouth once daily. - oxyCODONE-acetaminoph en (PERCOCET) 5-325 mg tablet - methylPREDNISolone (MEDROL, SEAN,) 4 mg Dose-Pack As Instructed per package - escitalopram oxalate (LEXAPRO) 10 mg tablet Take 1 tablet by mouth once daily. - lisinopril (ZESTRIL) 20 mg tablet Take 1 tablet by mouth once daily. - levonorgestrel (MIRENA) 20 mcg/24 hours (8 yrs) 52 mg IUD 1 Each by INTRAUTERINE route one time only. - cetirizine (ZYRTEC) 10 mg tablet Take 1 tablet by mouth once daily. 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 Medications Discontinued During This Encounter Prescriptions - Ibuprofen 200 mg cap (Discontinued) Take by mouth every 6 hours as needed. Encounter Status:Closed by KAILA DUFFY on 03/07/24 [facility] L[facility] 02-08-2024 CNOV Office Visit (ORTHBR ) MENDOZA JOHNSON ([id number]) 1975 F Date Time Provider Department 02/08/24 10:30 AM BENJAMIN GAGNON During your visit today, we recorded the following information about you: Weight Height 98 kg 1.676 m Benjamin Gagnon MD 02/08/2024 11:49 AM Signed [facility] Department of Orthopedics Benjamin Gagnon MD FACS 48-year-old female here today regarding her right shoulder. In the fall 2019 she was seen by Diana Gore for diagnosis of calcific tendinitis of the right rotator cuff. She received a cortisone injection after therapy and did get better. She said she was doing acceptably although she still has some discomfort until Tuesday when she went to reach for something and felt a significantly sharp pain. Since that time she has had a lot of discomfort which was intense enough to go to the emergency department in [place] Current Outpatient Medications Medication Sig oxyCODONE-acetaminoph en (PERCOCET) 5-325 mg tablet escitalopram oxalate (LEXAPRO) 10 mg tablet Take 1 tablet by mouth once daily. lisinopril (ZESTRIL) 20 mg tablet Take 1 tablet by mouth once daily. levonorgestrel (MIRENA) 20 mcg/24 hours (8 yrs) 52 mg IUD 1 Each by INTRAUTERINE route one time only. Ibuprofen 200 mg cap Take by mouth every 6 hours as needed. cetirizine (ZYRTEC) 10 mg tablet Take 1 tablet by mouth once daily. methylPREDNISolone (MEDROL, SEAN,) 4 mg Dose-Pack As Instructed per package No current facility-administered medications for this visit. 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) Inflammatory Arthropathy Seasonal Allergies Encounter for Gynecological Examination Without Abnormal Finding Encounter for Screening for Diabetes Mellitus Add (Attention Deficit Disorder) Dyslipidemia Well Adult Exam Viral Warts Acute Pain of Right Shoulder Sleep-Related Bruxism Myofascial Pain With Referred Pain Hypertension, Essential PAST SURGICAL HISTORY Procedure Laterality Date COLONOSCOPY FLX DX W/COLLJ SPEC WHEN PFRMD 06/07/2014 repeat 10 yrs INSERT INTRAUTERINE DEVICE 08/05/2022 Mirena LAPAROSCOPIC APPENDECTOMY 06/17/2016 TONSILLECTOMY PRIMARY/SECONDARY Tonsillectomy alone PAST MEDICAL HISTORY Diagnosis Date ADD (attention deficit disorder) 03/13/2016 was on medication till about mid 30's. Adderll once a day. Anal fissure 05/07/2009 Appendicitis Dyslipidemia 07/14/2016 Hypertension, essential 07/27/2022 Inflammatory arthropathy 03/13/2016 Markers elevated but Rheum said negative for Rheumatoid arthritis. 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 Wang FAMILY HISTORY Problem Relation Age of Onset Arthritis Mother VANESSA Hypertension Mother Arthritis Father VANESSA Diabetes Father Melanoma Father Breast Cancer Maternal Aunt Diabetes Paternal Grandfather No Known Problems Brother Alzheimer's Disease Maternal Grandfather Arthritis Maternal Grandmother Cancer Paternal Grandmother Social History Tobacco Use Smoking status: Never Smokeless tobacco: Never Vaping Use Vaping Use: Never used Substance Use Topics Alcohol use: Yes Alcohol/week: 4.0 standard drinks of alcohol Types: 4 Cans of Beer (12oz) per week Comment: occassionally Drug use: No ALLERGIES Allergen Reactions Tree And Shrub Poll* Other: See Comments seasonal REVIEW OF SYSTEMS General: NO fever, NO chills, NO night sweats Constitutional:NO recent unwanted weight loss, NO excessive weight Skin: NO rashes, NO chronic skin condition Head: NO seizures, NO headaches, NO dizziness Respiratory: NO cough Cardiovascular: NO chest pain Gastrointestinal: NO nausea, NO vomiting, NO abdominal painEndocrine: NO thyroid problems, NO heat intolerance Musculoskeletal: see HPI Neurologic: no numbness or tingling in extremities Examination: 48-year-old female no acute distress. Alert and oriented x 3. 5 feet 6 inches tall 260 pounds. Patient has no ability to actively move her right arm or hip. Passively I can abduct her to 40 degrees with a lot of discomfort external rotation is not possible passively with the arm rested at her side. Difficult to assess whether this is due to discomfort or true stiffness. Radiologic review: X-rays ordered by me into my interpretation shows an expanded area of calcific tendinitis which is quite large. No evidence for arthritis. Impression: Exacerbation and worsening of calcific tendinitis of the shoulder. Given the level of the patient's discomfort as well as an inability to determine if this stiffness is due to pain or due to true adhesive capsulitis, I want to focus on the calcific deposit. Patient was prescribed a Medrol pack to improve her (more content not included)... Normal [facility] Danielle 02-08-2024 [place] Telephone (RULTTB) MENDOZA JOHNSON ([id number]) 1975 F Date Time Provider Department 02/08/24 GARFIELD CALVINLTTB During your visit today, we recorded the following information about you: Garfield Calvin PCNA 02/08/2024 12:30 PM Signed Visit Type: ANY MSK Visit Length: 45, 50 OR 60 MINUTES Order Name/Protocol: US SHOULDER RT; EVAL LOCATION+SIZE OF CALCIFIC DEPOSITS NOTED ON XR Preferred Provider: N/A Comment: Please ask if the patient has ever had any prior surgery to their RT shoulder. If so, upgrade the visit type to an MSK1 and notate the surgical hx in the Appointment Note. Location: Depending on the surgical hx, this patient can have this exam performed at any of our three locations. Slot held: N/A Shala Hoffman 02/08/2024 1:09 PM Signed Patient has been scheduled for their MSK US exam on 02/23/24 : 2:25 PM at [facility]. Allergies As of Date: 02/08/2024 Noted Allergy Reaction TREE AND SHRUB POLLEN 09/01/2020 14 - Other: See Comments Comments: seasonal Date Reviewed: 02/08/2024 Reviewed by: Benjamin Gagnon MD - Fully Assessed Reason for Visit: Appointment [186] Prescriptions as of 02/08/2024 - oxyCODONE-acetaminoph en (PERCOCET) 5-325 mg tablet - methylPREDNISolone (MEDROL, SEAN,) 4 mg Dose-Pack As Instructed per package - escitalopram oxalate (LEXAPRO) 10 mg tablet Take 1 tablet by mouth once daily. - lisinopril (ZESTRIL) 20 mg tablet Take 1 tablet by mouth once daily. - levonorgestrel (MIRENA) 20 mcg/24 hours (8 yrs) 52 mg IUD 1 Each by INTRAUTERINE route one time only. - Ibuprofen 200 mg cap Take by mouth every 6 hours as needed. - cetirizine (ZYRTEC) 10 mg tablet Take 1 tablet by mouth once daily. 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 Plata or Dr. Fregoso to discuss treatment options for right shoulder. Left voicemail with my direct phone number. Eliel Natarajan 02/08/2024 12:59 PM Signed Patient returned phone call and appointment has been scheduled with Dr. Plata on 02/22/24. Allergies As of Date: 02/08/2024 Noted Allergy Reaction TREE AND SHRUB POLLEN 09/01/2020 14 - Other: See Comments Comments: seasonal Date Reviewed: 02/08/2024 Reviewed by: Benjamin Gagnon MD - Fully Assessed Reason for Visit: Appointment with Dr. Plata or Dr. Fregoso [Other] Prescriptions as of 02/08/2024 - oxyCODONE-acetaminoph en (PERCOCET) 5-325 mg tablet - methylPREDNISolone (MEDROL, SEAN,) 4 mg Dose-Pack As Instructed per package - escitalopram oxalate (LEXAPRO) 10 mg tablet Take 1 tablet by mouth once daily. - lisinopril (ZESTRIL) 20 mg tablet Take 1 tablet by mouth once daily. - levonorgestrel (MIRENA) 20 mcg/24 hours (8 yrs) 52 mg IUD 1 Each by INTRAUTERINE route one time only. - Ibuprofen 200 mg cap Take by mouth every 6 hours as needed. - cetirizine (ZYRTEC) 10 mg tablet Take 1 tablet by mouth once daily. 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 of calcium deposit R shoulder. Recent sharp pain x6 days TECHNIQUE: XR SHLDR >/=3V AP/PHUC AP/OTHR RT COMPARISON: 05/28/2020 FINDINGS: Large amount of calcification in the acromiohumeral interval, greater than previous and consistent with progressive calcific rotator cuff tendinosis. Acromiohumeral interval is maintained. Joint spaces are within normal limits. IMPRESSION: Progressive rotator cuff calcific tendinosis Header Boss: [facility] Transcribe Date/Time: Feb 11 2024 12:05P Dictated by : WILSON CROWDER MD This examination was interpreted and the report reviewed and electronically signed by: WILSON CROWDER MD on Feb 11 2024 12:06PM EST [id number] Normal [facility] CNOVon 12-22-2023 CNOV Office Visit (UCWSTR ) MENDOZA JOHNSON ([id number]) 1975 F Date Time Provider Department 12/22/23 8:45 AM JANNETH RACHEL [facility] During your visit today, we recorded the following information about you: Temperature Pulse Respiration Blood pressure 98.9 degrees 68/minute 16/minute 120/62 Weight 98.2 kg Janneth Rachel APRN.TYPE PHOTOGRAPHY SUPERVISOR 12/22/2023 9:59 AM Signed CC: Patient presents with: Ear Pain: Chest congestion, sore throat x2days Patient has had chest congestion with pleuritic chest pain, sore throat, and ear discomfort for past two days. Reports was sick as well but not this bad HPI: Mendoza Johnson is a 48 year old female who presents to the office with complaint of chest congestion, cough, nonproductive, sore throat, and ear symptoms for 2 days. Symptoms are worsening Associated symptoms includes sore throat, nasal congestion, body aches, ear pain, cough, and dyspnea. Denies wheezing, nausea, vomiting , and diarrhea. Treatments tried include OTC cold medicine with minor relief of symptoms. Sick contacts: yes. History of asthma, frequent episodes of bronchitis, chronic bronchitis, bronchiectasis or COPD: No Smoker: No Seasonal/environmenta l allergies: Yes The ROS is otherwise negative. The patient's pmh, medications, allergies, and past visits are reviewed. PHYSICAL EXAM: BP 120/62 Pulse 68 Temp 37.2 ?C (98.9 ?F) Resp 16 Wt 98.2 kg (216 lb 7.9 oz) LMP 08/02/2022 (Approximate) SpO2 97% BMI 34.79 kg/m? General appearance: tired/ill appearing, alert, cooperative, pleasant, in no acute distress Head: Normocephalic Eyes: PERRLA, EOM's intact, conjunctiva pink and moist, no icterus, sclera white, non-injected Ears: Right ear: External ear/canal- Normal, TM - dull. Left ear: External ear/canal- Normal, TM - dull Nose: clear. Oropharynx:moist without lesions, mild erythema, without exudates present Neck:supple and no adenopathy Heart: Negative. RRR without obvious murmur, gallop, or rubs. No ectopy. Lungs: clear to auscultation, without rales or wheeze, good air exchange PAST MEDICAL HISTORY Diagnosis Date ADD (attention deficit disorder) 03/13/2016 was on medication till about mid 30's. Adderll once a day. Anal fissure 05/07/2009 Appendicitis Dyslipidemia 07/14/2016 Hypertension, essential 07/27/2022 Inflammatory arthropathy 03/13/2016 Markers elevated but Rheum said negative for Rheumatoid arthritis. 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 Wang PAST SURGICAL HISTORY Procedure Laterality Date COLONOSCOPY FLX DX W/COLLJ SPEC WHEN PFRMD 06/07/2014 repeat 10 yrs INSERT INTRAUTERINE DEVICE 08/05/2022 Mirena LAPAROSCOPIC APPENDECTOMY 06/17/2016 TONSILLECTOMY PRIMARY/SECONDARY Tonsillectomy alone ALLERGIES Tree And Shrub Pollen MEDICATIONS escitalopram oxalate (LEXAPRO) 10 mg tablet Take 1 tablet by mouth once daily. lisinopril (ZESTRIL) 20 mg tablet Take 1 tablet by mouth once daily. levonorgestrel (MIRENA) 20 mcg/24 hours (8 yrs) 52 mg IUD 1 Each by INTRAUTERINE route one time only. Ibuprofen 200 mg cap Take by mouth every 6 hours as needed. cetirizine (ZYRTEC) 10 mg tablet Take 1 tablet by mouth once daily. FAMILY HISTORY Problem Relation Age of Onset Arthritis Mother VANESSA Hypertension Mother Arthritis Father VANESSA Diabetes Father Melanoma Father Breast Cancer Maternal Aunt Diabetes Paternal Grandfather No Known Problems Brother Alzheimer's Disease Maternal Grandfather Arthritis Maternal Grandmother Cancer Paternal Grandmother Social History Tobacco Use Smoking status: Never Smokeless tobacco: Never Vaping Use Vaping Use: Never used Substance Use Topics Alcohol use: Yes Alcohol/week: 4.0 standard drinks of alcohol Types: 4 Cans of Beer (12oz) per week Comment: occassionally Drug use: No DATA REVIEWED: Most recent labs and imaging results. ASSESSMENT/PLAN: 1. Sore throat - ICD9: 462, ICD10: J02.9 (primary diagnosis) - suspect viral - Rapid Strep negative in the office today - Discussed supportive care treatment with fluids, rest and analgesia as needed - COVID AND INFLUENZA A/B AND RSV NAAT, ROUTINE - STREP A MOLECULAR (POC) - negative 2. Acute cough - ICD9: 786.2, ICD10: R05.1 - XR CHEST 2V FRONTAL/LAT - negative - BENZONATATE 100 MG CAPSULE - FLUTICASONE PROPIONATE 50 MCG/ACTUATION NASAL SPRAY,SUSPENSION Prescription instructions reviewed with patient. Potential red flag symptoms discussed with the patient. Reviewed appropriate action plan to take if red flag symptoms occur. Patient agreeable to treatment plan. Tracie Giordano Supervising provider was present and guided the care of the patient for the entire session on this date. All documentation was revi (more content not included)... Normal [facility] Danielle 12-22-2023 [place] Telephone (UCWSTR) MENDOZA JOHNSON ([id number]) 1975 F Date Time Provider Department 3/28/24 OBINNA FRAZIER UCWSTR During your visit today, we recorded the following information about you: Obinna Frazier APRN.TYPE PHOTOGRAPHY SUPERVISOR 12/22/2023 7:55 PM Signed Notified of positive flu. Patient is 3 days into illness, past treatment window. Treat with otc medication. F/u for continued/worsening s/s. Allergies As of Date: 12/22/2023 Noted Allergy Reaction TREE AND SHRUB POLLEN 09/01/2020 14 - Other: See Comments Comments: seasonal Date Reviewed: 12/22/2023 Reviewed by: Deedee Haile - Fully Assessed Reason for Visit: Results [95] Prescriptions as of 12/22/2023 - benzonatate (TESSALON PERLES) 100 mg capsule Take 1 capsule by mouth three times a day as needed for cough for up to 7 days. - fluticasone (FLONASE) 50 mcg/actuation nasal spray Use 2 Sprays in each nostril once daily. Rinse mouth after use. - escitalopram oxalate (LEXAPRO) 10 mg tablet Take 1 tablet by mouth once daily. - lisinopril (ZESTRIL) 20 mg tablet Take 1 tablet by mouth once daily. - levonorgestrel (MIRENA) 20 mcg/24 hours (8 yrs) 52 mg IUD 1 Each by INTRAUTERINE route one time only. - Ibuprofen 200 mg cap Take by mouth every 6 hours as needed. - cetirizine (ZYRTEC) 10 mg tablet Take 1 tablet by mouth once daily. 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 Reference Range (the expected result in uninfected individuals): Not detected INFLUENZA A PCR: Detected INFLUENZA B PCR: Not detected RSV PCR: Not detected Abnormal [facility] Comment on above: Performed By: #### C VFLRS ####[facility] LABCLIA [id number] [address] [facility] XR CHEST 2V FRONTAL/LATon XR CHEST 2V FRONTAL/LAT * * *Final Repor t* * * DATE OF EXAM: Dec 22 2023 9:26AM WOX [id number] - XR CHEST 2V FRONTAL/LAT / PROCEDURE REASON: Acute cough * * * * Physician Interpretation * * * * EXAMINATION: CHEST RADIOGRAPH (2 VIEW FRONTAL and LATERAL) CLINICAL HISTORY: Acute cough MQ: [id number] EXAM DATE/TIME: 12/22/2023 9:26 AM COMPARISON: No relevant prior studies available. RESULT: Lines, tubes, and devices: None. Lungs and pleura: No consolidation. No lung mass. No pleural effusion. No pneumothorax. Cardiomediastinal silhouette: Normal cardiomediastinal silhouette. Bones and soft tissues: Unremarkable. IMPRESSION: No acute radiographic abnormality. Header Boss: JB Transcribe Date/Time: Dec 22 2023 9:32A Dictated by : ALISSA REYES MD This examination was interpreted and the report reviewed and electronically signed by: ALISSA REYES MD on Dec 22 2023 9:34AM EST [id number] Normal [facility] XR Chest PA and Lateralon IMPRESSION: No acute radiographic abnormality. Header Boss: [facility] Transcribe Date/Time: Dec 22 2023 9:32A Dictated by : ALISSA REYES MD This examination was interpreted and the report reviewed and electronically signed by: ALISSA REYES MD on Dec 22 2023 9:34AM EST DIVISION OF RADIOLOGY * * *Final Report* * * DATE OF EXAM: Dec 22 2023 9:26AM WOX 5291 - XR CHEST 2V FRONTAL/LAT / PROCEDURE REASON: Acute cough * * * * Physician Interpretation * * * * EXAMINATION: CHEST RADIOGRAPH (2 VIEW FRONTAL & LATERAL) CLINICAL HISTORY: Acute cough MQ: XC2_6 EXAM DATE/TIME: 12/22/2023 9:26 AM COMPARISON: No relevant prior studies available. RESULT: Lines, tubes, and devices: None. Lungs and pleura: No consolidation. No lung mass. No pleural effusion. No pneumothorax. Cardiomediastinal silhouette: Normal cardiomediastinal silhouette. Bones and soft tissues: Unremarkable. DIVISION OF RADIOLOGY Provider, [facility] - 12/22/2023 * * *Final Report* * * DATE OF EXAM: Dec 22 2023 9:26AM WOX 5291 - XR CHEST 2V FRONTAL/LAT / PROCEDURE REASON: Acute cough * * * * Physician Interpretation * * * * EXAMINATION: CHEST RADIOGRAPH (2 VIEW FRONTAL & LATERAL) CLINICAL HISTORY: Acute cough MQ: XC2_6 EXAM DATE/TIME: 12/22/2023 9:26 AM COMPARISON: No relevant prior studies available. RESULT: Lines, tubes, and devices: None. Lungs and pleura: No consolidation. No lung mass. No pleural effusion. No pneumothorax. Cardiomediastinal silhouette: Normal cardiomediastinal silhouette. Bones and soft tissues: Unremarkable. IMPRESSION IMPRESSION: No acute radiographic abnormality. Header Boss: [facility] Transcribe Date/Time: Dec 22 2023 9:32A Dictated by : ALISSA REYES MD This examination was interpreted and the report reviewed and electronically signed by: ALISSA REYES MD on Dec 22 2023 9:34AM EST [facility] Radiology Study observation (narrative) Venessa Ga XR Chest PA and LateralOrder ed By: [facility] Provider on 12-22-2023 [facility] Absolute lymphocyte countOrd ered By: Griselda Stewart on 08-24-2023 Lymphocytes Auto (Unsp spec) [#/Vol] 2.93 10*3/uL 0.83-4.51 [facility] Basophil percentageOrdered B y: Griselda Stewart on 08-24-2023 Basophils/100 WBC (Bld) 0.3 % 0-1 [facility] Bilirubin [Mass/Vol] 0.30 mg/dL 0.20-1.00 [facility] Comment on above: For patients on eltr ombopag therapy, use of Dimension [place] TBIL is not recommended. Chloride [Moles/Vol] 105 mmol/L 98-107 [facility] Eosinophils/100 WBC (Bld) 1.6 % 0-5 [facility] Glucose [Mass/Vol] 97 mg/dL 74-106 [facility] Lactate [Moles/Vol] 0.6 mmol/L 0.4-2.0 [facility] Neutrophils (Bld) [#/Vol] 9.9 10*3/uL 2.0-7.7 [facility] Neutrophils/100 WBC (Bld) 69.9 % 47-70 [facility] Potassium [Moles/Vol] 3.6 mmol/L 3.5-5.1 [facility] Protein [Mass/Vol] 7.7 g/dL 6.4-8.2 [facility] Sodium [Moles/Vol] 137 mmol/L 136-145 [facility] WBC (Bld) [#/Vol] 14.2 10*3/uL 4.4-11.0 [facility] Basophil percentage 0 SEEN /hpf 0-5 [facility] Bilirubin Test strip Ql (U)O rdered By: Griselda Billingschalino on 08-24-2023 Bilirubin Ql (U) Negative Negative [facility] Blood erythrocytes count (nu mber/volume)Ordered By: Krystinus Billingschalino on 08-24-2023 RBC (Bld) [#/Vol] 4.53 10*6/uL 4.2-5.4 [facility] Blood hemoglobin measurement (mass/volume)Ordered By: Griselda Stewart on 08-24-2023 Hemoglobin (Bld) [Mass/Vol] 12.8 g/dL 12.0-15.0 [facility] Blood lymphocytes/100 leukoc ytesOrdered By: Griselda Stewart on 08-24-2023 Lymphocytes/100 WBC (Bld) 20.7 % 19-41 [facility] Blood monocytes/100 leukocyt esOrdered By: [facility] on 08-24-2023 Monocytes/100 WBC (Bld) 7.0 % 0-10 [facility] Blood platelet mean volumeOr dered By: [facility] on 08-24-2023 Platelet mean volume (Bld) [Entitic vol] 11.7 fL 6.2-12.0 [facility] Determination of erythrocyte mean corpuscular volume (MCV)Ordered By: [facility] on 08-24-2023 MCV (RBC) [Entitic vol] 88.5 fL 81-99 [facility] Hematocrit Auto (Bld) [Volum e fraction]Ordered By: [facility] on 08-24-2023 Hematocrit (Bld) [Volume fraction] 40.1 % 37-47 [facility] Ketones Test strip Ql (U)Ord ered By: [facility] on 08-24-2023 Ketones Ql (U) Negative Negative [facility] Laboratory - Chemistry and C hemistry - challengeOrdered By: [facility] on 08-24-2023 ALP [Catalytic activity/Vol] 89 U/L 45-117 [facility] ALT [Catalytic activity/Vol] 28 U/L 13-56 [facility] CO2 [Moles/Vol] 28.0 mmol/L 21.0-32.0 [facility] Globulin (S) [Mass/Vol] 4.2 g/dL 2.2-4.2 [facility] Lipase [Catalytic activity/Vol] 57 U/L 13-75 [facility] Comment on above: Please note:LIPASE r evised reference range effective 23. New Lipase methodology. Expected to produce lower values than the previous assay method. NEW Reference Range: 13 - 75 U/L Urea nitrogen/Creatinine [Mass ratio] 17.4 mg/mg 10-20 [facility] Laboratory - Hematology and Cell countsOrdered By: [facility] on 08-24-2023 Erythrocyte distribution width (RBC) [Entitic vol] 41.0 fL 35.1-43.9 [facility] Erythrocyte distribution width (RBC) [Ratio] 12.7 % 11.6-14.6 [facility] Immature granulocytes/100 WBC (Bld) 0.500 % 0.0-0.9 [facility] Comment on above: IG% - Immature Granu locytes (promyelocytes, myelocytes and metamyelocytes) > 1% indicates that a LEFT SHIFT is Present. MCH (RBC) [Entitic mass] 28.3 pg 27.0-32.0 [facility] Nucleated RBC/100 WBC (Bld) [Ratio] 0 % 0-5 [facility] MCHC Auto (RBC) [Mass/Vol]Or dered By: Griselda Stewart on 08-24-2023 MCHC (RBC) [Mass/Vol] 31.9 g/dL 32-36 [facility] Mucus LM Ql (Urine sed)Order ed By: Griselda Stewart on 08-24-2023 Mucus Ql (Urine sed) RARE /hpf [facility] Nitrite Test strip Ql (U)Ord ered By: Griselda Stewart on 08-24-2023 Nitrite Ql (U) Negative Negative [facility] No Panel InformationOrdered By: Griselda Stewart on 08-24-2023 Estimated Creatinine Clearance Calc 80.51 ml/min [facility] Estimated GFR (MDRD) Amer 98 mL/min >60 [facility] Comment on above: GFR Calc Estimated GFR (MDRD) Non-Af Amer 81 mL/min >60 [facility] Comment on above: Non- GFR Calc Platelets bldOrdered By: Krystin Stewart on 08-24-2023 Platelets (Bld) [#/Vol] 273 10*3/uL 150-450 [facility] Protein Test strip Ql (U)Ord ered By: Griselda Stewart on 08-24-2023 Protein Ql (U) Negative Negative [facility] Serum or plasma albumin jamil urement (mass/volume)Ordered By: Griselda Stewart on 08-24-2023 Albumin [Mass/Vol] 3.5 g/dL 3.2-5.0 [facility] Serum or plasma albumin/glob ulin mass ratioOrdered By: Griselda Stewart on 08-24-2023 Albumin/Globulin [Mass ratio] 0.8 {ratio} 0.9-2.4 [facility] Serum or plasma calcium jamil urement (mass/volume)Ordered By: Griselda Stewart on 08-24-2023 Calcium [Mass/Vol] 8.5 mg/dL 8.5-10.1 [facility] Serum or plasma creatinine m easurement (mass/volume)Ordered By: Griselda Stewart on 08-24-2023 Creatinine [Mass/Vol] 0.80 mg/dL 0.55-1.02 [facility] Comment on above: The validity of the calculated GFR & GFRAA in patients over 70 years has not been determined. Clinical correlation is essential. Serum or plasma urea nitroge n measurement (mass/volume)Ordered By: Griselda Stewart on 08-24-2023 Urea nitrogen [Mass/Vol] 14 mg/dL 7-18 [facility] Squamous epithelial cells de tection in urine sediment by light microscopyOrdered By: Griselda Stewart on 08-24-2023 Epithelial cells.squamous LM Ql (Urine sed) 0-5 SEEN /hpf 5-10 [facility] Thin prep Papanicolaou smear with manual screeningOrdered By: Griselda Stewart on 08-24-2023 Thin prep Papanicolaou smear with manual screening 20 U/L 15-37 [facility] Thin prep Papanicolaou smear with manual screening 4 5-15 [facility] Urine blood detectionOrdered By: Griselda Stewart on 08-24-2023 RBC Ql (U) 10 /ul Negative [facility] RBC Ql (U) 0-5 SEEN /hpf 0-5 [facility] Urine clarityOrdered By: Krystin Stewart on 08-24-2023 Clarity (U) Sl. Cloudy Clear [facility] Urine color determinationOrd ered By: Griselda Stewart on 08-24-2023 Color (U) Yellow Yellow [facility] Urine glucose detectionOrder ed By: Griselda Stewart on 08-24-2023 Glucose Ql (U) Normal mg/dl Normal [facility] Urine leukocyte esterase det ection by dipstickOrdered By: Griselda Stewart on 08-24-2023 Leukocyte esterase Test strip Ql (U) Negative Negative [facility] Urine pHOrdered By: Remus Un gur on 08-24-2023 pH (U) 5.0 [pH] 5.0 - 8.0 [facility] Urine sediment bacteria coun t by microscopy (number/high power field)Ordered By: Griselda Stewart on 08-24-2023 Bacteria LM.HPF (Urine sed) [#/Area] 1 /[HPF] None Seen [facility] Urine specific gravity measu rementOrdered By: Griselda Stewart on 08-24-2023 Specific gravity (U) [Rel density] 1.025 1.002-1.030 [facility] Urobilinogen Auto test strip Ql (U)Ordered By: Griselda Stewart on 08-24-2023 Urobilinogen Ql (U) Normal mg/dl Normal [facility] 25(OH)D3 SerPl-mCncon 2022 25-hydroxyvitamin D3 [Mass/Vol] 29.1 ng/mL Low 31.0-80.0 [facility] Comment on above: Order Comment: Speci men Type: BLOOD SPECIMENOrdering Facility: External Submitter Address: , , Result Comment: Clas sification of 25 [place] Vitamin D status: Deficiency/Insufficiency: < or = 30 ng/ml. Sufficiency/Optimal Levels: 31-80 ng/mL Toxicity: > 100 ng/mL. Test performed by chemiluminescent immunoassay. Performed By: #### 1 989-3 ####[facility] LABIA [id number] [place] [address] [place] CBC panel Auto (Bld)on 07-07 Erythrocyte distribution width (RBC) [Ratio] 12.7 % Normal 11.5-15.0 [facility] Comment on above: Order Comment: Speci men Type: BLOOD SPECIMENOrdering Facility: External Submitter Address: , , Performed By: #### 5 8410-2 ####[facility] LABIA [id number] [place] [address] [place] Hematocrit (Bld) [Volume fraction] 42.3 % Normal 36.0-46.0 [facility] Comment on above: Order Comment: Speci men Type: BLOOD SPECIMENOrdering Facility: External Submitter Address: , , Performed By: #### 5 8410-2 ####[facility] LABIA [id number] [place] [address] [place] Hemoglobin (Bld) [Mass/Vol] 13.5 g/dL Normal 11.5-15.5 [facility] Comment on above: Order Comment: Speci men Type: BLOOD SPECIMENOrdering Facility: External Submitter Address: , , Performed By: #### 5 8410-2 ####[facility] LABIA [id number] [place] [address] [place] MCH (RBC) [Entitic mass] 28.3 pg Normal 26.0-34.0 [facility] Comment on above: Order Comment: Speci men Type: BLOOD SPECIMENOrdering Facility: External Submitter Address: , , Performed By: #### 5 8410-2 ####[facility] LABIA [id number] [address] [place] MCHC (RBC) [Mass/Vol] 31.9 g/dL Normal 30.5-36.0 [facility] Comment on above: Order Comment: Speci men Type: BLOOD SPECIMENOrdering Facility: External Submitter Address: , , Performed By: #### 5 8410-2 ####[facility] LABIA [id number] [place] [address] [place] MCV (RBC) [Entitic vol] 88.7 fL Normal 80.0-100.0 [facility] Comment on above: Order Comment: Speci men Type: BLOOD SPECIMENOrdering Facility: External Submitter Address: , , Performed By: #### 5 8410-2 ####[facility] LABIA [id number] [place] [address] [place] Nucleated RBC (Bld) [#/Vol] 10*3/uL Normal <0.01 [facility] Comment on above: Order Comment: Speci men Type: BLOOD SPECIMENOrdering Facility: External Submitter Address: , , Performed By: #### 5 8410-2 ####[facility] LABIA [id number] [place] [address] [place] Platelet mean volume (Bld) [Entitic vol] 11.8 fL Normal 9.0-12.7 [facility] Comment on above: Order Comment: Speci men Type: BLOOD SPECIMENOrdering Facility: External Submitter Address: , , Performed By: #### 5 8410-2 ####[facility] LABIA [id number] [place] [address] [place] Platelets (Bld) [#/Vol] 254 10*3/uL Normal 150-400 [facility] Comment on above: Order Comment: Speci men Type: BLOOD SPECIMENOrdering Facility: External Submitter Address: , , Performed By: #### 5 8410-2 ####[facility] [id number] [place] [address] [place] RBC (Bld) [#/Vol] 4.77 10*6/uL Normal 3.90-5.20 [facility] Comment on above: Order Comment: Speci men Type: BLOOD SPECIMENOrdering Facility: External Submitter Address: , , Performed By: #### 5 8410-2 ####[facility] [id number] [place] [address] [place] WBC (Bld) [#/Vol] 8.49 10*3/uL Normal 3.70-11.00 [facility] Comment on above: Order Comment: Speci men Type: BLOOD SPECIMENOrdering Facility: External Submitter Address: , , Performed By: #### 5 8410-2 ####[facility] LABIA [id number] [place] [id number] [place] CK SerPl-cCncon 07-07-2023 CK [Catalytic activity/Vol] 77 U/L Normal 42-196 [facility] Comment on above: Order Comment: Speci men Type: BLOOD SPECIMENOrdering Facility: External Submitter Address: , , Performed By: #### 2 157-6, , 2132-05 ####[facility] LABCLIA [id number] [address] [address] [place] Comprehensive metabolic 2000 panelon 07-07-2023 Albumin [Mass/Vol] 4.4 g/dL Normal 3.9-4.[address] [facility] Comment on above: Order Comment: Speci men Type: BLOOD SPECIMENOrdering Facility: External Submitter Address: , , Performed By: #### 2 157-6, , 2132-05 ####[facility] LABCLIA [id number] [place] [address] [place] ALP [Catalytic activity/Vol] 98 U/L Normal 34-123 [facility] Comment on above: Order Comment: Speci men Type: BLOOD SPECIMENOrdering Facility: External Submitter Address: , , Performed By: #### 2 157-6, , 2132-05 ####[facility] LABCLIA [id number] [place] [address] [place] ALT [Catalytic activity/Vol] 57 U/L High 7-38 [facility] Comment on above: Order Comment: Speci men Type: BLOOD SPECIMENOrdering Facility: External Submitter Address: , , Performed By: #### 2 157-6, , 2132-05 ####[facility] LABCLIA [id number] [place] [id number] [place] Anion gap [Moles/Vol] 11 mmol/L Normal 9-18 [facility] Comment on above: Order Comment: Speci men Type: BLOOD SPECIMENOrdering Facility: External Submitter Address: , , Performed By: #### 2 157-6, , 2132-05 ####[facility] LABCLIA [id number] [place] [address] [place] AST [Catalytic activity/Vol] 43 U/L High 13-35 [facility] Comment on above: Order Comment: Speci men Type: BLOOD SPECIMENOrdering Facility: External Submitter Address: , , Performed By: #### 2 157-6, , 2132-05 ####[facility] LABCLIA [id number] [place] [address] [place] Bilirubin [Mass/Vol] 0.6 mg/dL Normal 0.2-1.3 [facility] Comment on above: Order Comment: Speci men Type: BLOOD SPECIMENOrdering Facility: External Submitter Address: , , Performed By: #### 2 157-6, , 2132-05 ####[facility] LABIA [id number] [place] [address] [place] Calcium [Mass/Vol] 9.5 mg/dL Normal 8.5-10.[address] [facility] Comment on above: Order Comment: Speci men Type: BLOOD SPECIMENOrdering Facility: External Submitter Address: , , Performed By: #### 2 157-6, , 2132-05 ####[facility] LABCLIA [id number] [place] [address] [place] Chloride [Moles/Vol] 102 mmol/L Normal 97-105 [facility] Comment on above: Order Comment: Speci men Type: BLOOD SPECIMENOrdering Facility: External Submitter Address: , , Performed By: #### 2 157-6, , 2132-05 ####[facility] LABCLIA [id number] [place] [address] [place] CO2 [Moles/Vol] 23 mmol/L Normal 22-30 [facility] Comment on above: Order Comment: Speci men Type: BLOOD SPECIMENOrdering Facility: External Submitter Address: , , Performed By: #### 2 157-6, 08464-8, 2132-05 ####[facility] LABCLIA [id number] [address] [address] [place] Creatinine [Mass/Vol] 0.71 mg/dL Normal 0.58-0.96 [facility] Comment on above: Order Comment: Speci men Type: BLOOD SPECIMENOrdering Facility: External Submitter Address: , , Performed By: #### 2 157-6, 18555-6, 2132-05 ####[facility] LABCLIA [id number] [address] [address] [place] Creatinine and Glomerular filtration rate.predicted panel (S/P/Bld) 105 mL/min/1.73m??? Normal >=60 [facility] Comment on above: Order Comment: Jessicai men Type: BLOOD SPECIMENOrdering Facility: External Submitter Address: , , Result Comment: Kathleen mated Glomerular Filtration Rate (eGFR) is calculated using the 2020 CKD-EPI creatinine equation. This equation utilizes serum creatinine, sex, and age as parameters. The creatinine assay has traceable calibration to isotope dilution-mass spectrometry. Refer to KDIGO guidelines for clinical interpretation. In patients with unstable renal function, e.g. those with acute kidney injury, the eGFR may not accurately reflect actual GFR. Performed By: #### 2 157-6, 79000-9, 2132-05 ####[facility] LABIA [id number] [address] [address] [place] Glucose [Mass/Vol] 98 mg/dL Normal 74-[address] [facility] Comment on above: Order Comment: Speci men Type: BLOOD SPECIMENOrdering Facility: External Submitter Address: , , Result Comment: The [place] Diabetes Association (ADA) provides guidance for cutoff values for fasting glucose and random glucose. The ADA defines fasting as no caloric intake for at least 8 hours. Fasting plasma glucose results between 100 to 125 mg/dL indicate increased risk for diabetes (prediabetes). Fasting plasma glucose results greater than or equal to 126 mg/dL meet the criteria for diagnosis of diabetes. In the absence of unequivocal hyperglycemia, results should be confirmed by repeat testing. In a patient with classic symptoms of hyperglycemia or hyperglycemic crisis, random plasma glucose results greater than or equal to 200 mg/dL meet the criteria for diagnosis of diabetes. Reference: Standards of Medical Care in Diabetes 2016, [place] [employer]. Diabetes Care. 2016.39(Suppl 1). Performed By: #### 2 157-6, , 2132-05 ####[facility] LABCLIA [id number] [address] [address] [place] Potassium [Moles/Vol] 4.5 mmol/L Normal 3.7-5.1 [facility] Comment on above: Order Comment: Attila freitas Type: BLOOD SPECIMENOrdering Facility: External Submitter Address: , , Performed By: #### 2 157-6, , 2132-05 ####[facility] LABCLIA [id number] [address] [address] [place] Protein [Mass/Vol] 7.2 g/dL Normal 6.3-8.[address] [facility] Comment on above: Order Comment: Attila freitas Type: BLOOD SPECIMENOrdering Facility: External Submitter Address: , , Performed By: #### 2 157-6, , 2132-05 ####[facility] LABCLIA [id number] [address] [address] [place] Sodium [Moles/Vol] 136 mmol/L Normal 136-[address] [facility] Comment on above: Order Comment: Attila freitas Type: BLOOD SPECIMENOrdering Facility: External Submitter Address: , , Performed By: #### 2 157-6, , 2132-05 ####[facility] LABCLIA [id number] [address] [address] [place] Urea nitrogen [Mass/Vol] 16 mg/dL Normal 7-21 [facility] Comment on above: Order Comment: Attila freitas Type: BLOOD SPECIMENOrdering Facility: External Submitter Address: , , Performed By: #### 2 157-6, 10344-7, 2132-9 ####[facility] LABIA [id number] [place] [id number] [place] Cyclic citrullinated peptide IgG Qnon 07-07-2023 [facility] ANTIBODY IGG QUALITATIVE Negative Normal Negative [facility] Comment on above: Order Comment: Speci men Type: BLOOD SPECIMENOrdering Facility: External Submitter Address: , , Performed By: #### 3 3935-8 ####[facility] LABIA [id number] [place] [id number] [place] Estradiol SerPl-mCncon 07-07 E2 [Mass/Vol] 123 pg/mL Normal [facility] Comment on above: Order Comment: Speci men Type: BLOOD SPECIMENOrdering Facility: External Submitter Address: , , Result Comment: This test is not suitable for patients receiving treatment with the drug Fulvestrant (Faslodex). The drug causes an interference leading to falsely elevated estradiol results. Menstrual cycle Estradiol reference ranges: Follicular : < 234 pg/mL Ovulation : 41 to 398 pg/mL Luteal : < 342 pg/mL Estradiol reference ranges vary by gestational period: First trimester : 154 to 3243 pg/mL Second trimester : 1561 to 11030 pg/mL Third trimester : 8285 to >05214 pg/mL Post-menopausal Estradiol reference range: < 41 pg/mL Reference: 1. Estradiol - E2 (Estradiol III) [package insert V 3.0 Kisw[place]ili]. [facility], [place], [place], February 2016. Performed By: #### 3 051-0, 22719-4, 2243-4, 3024-7 ####[facility] LABIA [id number] [place] [id number] [place] FSH SerPl-aCncon 07-07-2023 Follitropin Qn 16.5 m[IU]/mL Normal See comment [facility] Comment on above: Order Comment: Speci men Type: BLOOD SPECIMENOrdering Facility: External Submitter Address: , , Result Comment: Refe rence range: Follicular: 3.5-12.5 mIU/mL Ovulation: 4.7-21.5 mIU/mL Luteal: 1.7-7.7 mIU/mL Postmenopausal: 25.8-134.8 mIU/mL Performed By: #### 3 051-0, 41007-7, 2243-4, 3024-7 ####[facility] LABCLIA [id number] [place] [address] [place] HLA-B27 PCRon 07-07-2023 HLA-B27 DNA RESULT Negative Normal [facility] Comment on above: Order Comment: Speci men Type: BLOOD SPECIMENOrdering Facility: External Submitter Address: , , Result Comment: HLA- B27 is strongly associated with ankylosing spondylitis (). HLA-B27 is also associated with other seronegative arthropathies such as Alvarez syndrome and psoriatic arthritis as well as extra-articular diseases such as anterior uveitis and inflammatory bowel disease. Greater than 90% of patients with are HLA-B27 positive. The frequency of HLA-B27 varies by ethnic group but generally <10 % in most [place] populations. HLA-B27 associated susceptibility to varies by population and HLA-B27 alleles detected. Some alleles such as B27:05 are associated with high susceptibility while others such B27:06 and B27:09 are associated with low susceptibility. HLA-B27 allele typing is recommended in HLA-B27 positive cases. HLA typing performed by PCR-RSSOP and/or NGS. This test was developed and its performance characteristics determined by [facility]. The test has not been cleared or approved by the [place] FDA. However, FDA approval was not necessary since this lab is certified under CLIA for high complexity testing. Test performed by: [facility] [facility], [address], [place] [address], CLIA [id number] Performed By: #### B 27PCR ####[facility] [id number] [place] [id number] [place] Nuclear Ab IA Ql (S)on 07-07 NEENA SCR QUAL Negative Normal Negative [facility] Comment on above: Order Comment: Speci men Type: BLOOD SPECIMENOrdering Facility: External Submitter Address: , , Result Comment: The qualitative antinuclear antibody screen test performed using the following antigens: dsDNA, Chromatin, Ribosomal P, SS-A 60, SS-A 52, SS-B, Sm, SmRNP, RAW MATERIAL HANDLER A, RAW MATERIAL HANDLER 68, Scl-70, Estefany-1, and Centromere B. Methodology: Multiplex flow immunoassay. Performed By: #### 4 7383-5 ####[facility] [id number] [place] [address] [place] Rheumatoid fact SerPl-aCncon 07-07-2023 Rheumatoid factor Qn [IU]/mL Normal <16 [facility] Comment on above: Order Comment: Speci men Type: BLOOD SPECIMENOrdering Facility: External Submitter Address: , , Performed By: #### 1 1572-5, 3016-3, 3846-8 ####[facility] [id number] [place] [address] [place] T3Free SerPl-mCncon 07-07-20 23 Free T3 [Mass/Vol] 4.6 pg/mL High 2.3-4.[address] [facility] Comment on above: Order Comment: Speci men Type: BLOOD SPECIMENOrdering Facility: External Submitter Address: , , Performed By: #### 3 051-0, 16057-3, 2242-4, 9887 ####[facility] [id number] [place] [address] [place] T4 Free SerPl-mCncon 023 Free T4 [Mass/Vol] 0.9 ng/dL Normal 0.9-1.[address] [facility] Comment on above: Order Comment: Speci men Type: BLOOD SPECIMENOrdering Facility: External Submitter Address: , , Performed By: #### 3 051-0, 22249-0, 2242-4, 7597 ####[facility] [id number] [place] [address] [place] TSH SerPl-aCncon 07-07-2023 TSH Qn 0.929 m[IU]/L Normal 0.270-4.200 [facility] Comment on above: Order Comment: Speci men Type: BLOOD SPECIMENOrdering Facility: External Submitter Address: , , Result Comment: If t he patient is , TSH reference range varies by gestational period: First Trimester (weeks 9-12): 0.180-2.990 mIU/L Second Trimester: 0.110-3.980 mIU/L Third Trimester: 0.480-4.710 mIU/L Deniz Ignacio et al. A Practical Approach for the Verifications and Determination of Site- and Trimester-Specific Reference Intervals for Thyroid Function tests in . Thyroid, 2019:29:3:412-420. Buck E, et al. 2017 Guidelines of the [place] Thy[employer] Association for the Diagnosis and Management of Thyroid Disease during and the . Thyroid, 2017:27:3:315-389. Performed By: #### 1 1572-5, 3016-3, 2986-8 ####[facility] LABIA [id number] [place] [address] [place] Testost SerPl-mCncon 07-07- 023 Testosterone [Mass/Vol] 176 ng/dL High <40 [facility] Comment on above: Order Comment: Attila freitas Type: BLOOD SPECIMENOrdering Facility: External Submitter Address: , , Result Comment: Resu lt rechecked. Performed By: #### 1 1572-5, 3016-3, 2986-8 ####[facility] LABIA [id number] [place] [address] [place] Vit B12 SerPl-mCncon 07-07- 023 Cobalamin (Vitamin B12) [Mass/Vol] 684 pg/mL Normal 232-1245 [facility] Comment on above: Order Comment: Attila freitas Type: BLOOD SPECIMENOrdering Facility: External Submitter Address: , , Performed By: #### 2 157-6, 87189-0, 2132-9 ####[facility] LABCLIA [id number] [place] [address] [place] cCP IgG SerPl-aCncon 023 Cyclic citrullinated peptide IgG Qn <15 Normal <20 [facility] Comment on above: Order Comment: Speci men Type: BLOOD SPECIMENOrdering Facility: External Submitter Address: , , Performed By: #### 3 3935-8 ####[facility] LABCLIA [id number] [facility] [id number] [facility] Basophil percentageOrdered B y: Bo Young on 04-28-2023 Chloride [Moles/Vol] 108 mmol/L 98-107 [facility] Glucose [Mass/Vol] 92 mg/dL 74-106 [facility] Potassium [Moles/Vol] 4.0 mmol/L 3.5-5.1 [facility] Sodium [Moles/Vol] 139 mmol/L 136-145 [facility] WBC (Bld) [#/Vol] 8.8 10*3/uL 4.4-11.0 [facility] Blood erythrocytes count (nu mber/volume)Ordered By: Bo Young on 04-28-2023 RBC (Bld) [#/Vol] 4.45 10*6/uL 4.2-5.4 [facility] Blood hemoglobin measurement (mass/volume)Ordered By: Bo Young on 04-28-2023 Hemoglobin (Bld) [Mass/Vol] 13.0 g/dL 12.0-15.0 [facility] Blood platelet mean volumeOr dered By: Bo Young on 04-28-2023 Platelet mean volume (Bld) [Entitic vol] 11.5 fL 6.2-12.0 [facility] Determination of erythrocyte mean corpuscular volume (MCV)Ordered By: Bo Young on 04-28-2023 MCV (RBC) [Entitic vol] 87.6 fL 81-99 [facility] Hematocrit Auto (Bld) [Volum e fraction]Ordered By: Bo Young on 04-28-2023 Hematocrit (Bld) [Volume fraction] 39.0 % 37-47 [facility] Laboratory - Chemistry and C hemistry - challengeOrdered By: Bo Young on 04-28-2023 CO2 [Moles/Vol] 24.0 mmol/L 21.0-32.0 [facility] Urea nitrogen/Creatinine [Mass ratio] 17.2 mg/mg 10-20 [facility] Laboratory - Hematology and Cell countsOrdered By: Bo Young on 04-28-2023 Erythrocyte distribution width (RBC) [Entitic vol] 39.8 fL 35.1-43.9 [facility] Erythrocyte distribution width (RBC) [Ratio] 12.5 % 11.6-14.6 [facility] MCH (RBC) [Entitic mass] 29.2 pg 27.0-32.0 [facility] MCHC Auto (RBC) [Mass/Vol]Or dered By: Bo Young on 04-28-2023 MCHC (RBC) [Mass/Vol] 33.3 g/dL 32-36 [facility] No Panel InformationOrdered By: Bo Young on 04-28-2023 Estimated Creatinine Clearance Calc 85.67 ml/min [facility] Estimated GFR (MDRD) Amer 105 mL/min >60 [facility] Comment on above: GFR Calc Estimated GFR (MDRD) Non-Af Amer 87 mL/min >60 [facility] Comment on above: Non- GFR Calc Platelets bldOrdered By: Bo Young on 04-28-2023 Platelets (Bld) [#/Vol] 256 10*3/uL 150-450 [facility] Serum or plasma calcium jamil urement (mass/volume)Ordered By: Bo Young on 04-28-2023 Calcium [Mass/Vol] 8.4 mg/dL 8.5-10.1 [facility] Serum or plasma creatinine m easurement (mass/volume)Ordered By: Bo Yonug on 04-28-2023 Creatinine [Mass/Vol] 0.76 mg/dL 0.55-1.02 [facility] Comment on above: The validity of the calculated GFR & GFRAA in patients over 70 years has not been determined. Clinical correlation is essential. Serum or plasma urea nitroge n measurement (mass/volume)Ordered By: Bo Young on 04-28-2023 Urea nitrogen [Mass/Vol] 13 mg/dL 7-18 [facility] Thin prep Papanicolaou smear with manual screeningOrdered By: Bo Young on 04-28-2023 Thin prep Papanicolaou smear with manual screening 7 5-15 [facility] Absolute lymphocyte countOrd ered By: Dr. Velazquez on 02-17-2023 Lymphocytes Auto (Unsp spec) [#/Vol] 1.58 10*3/uL 0.83-4.51 [facility] Basophil percentageOrdered B y: Dr. Velazquez on 02-17-2023 Basophils/100 WBC (Bld) 0.6 % 0-1 [facility] Bilirubin [Mass/Vol] 0.60 mg/dL 0.20-1.00 [facility] Comment on above: For patients on eltr ombopag therapy, use of Dimension [place] TBIL is not recommended. Chloride [Moles/Vol] 109 mmol/L 98-107 [facility] Cholesterol [Mass/Vol] 226 mg/dL <200 [facility] Comment on above: <200 mg/dL Desirable 200-240 mg/dL Borderline >240 mg/dL High Risk Eosinophils/100 WBC (Bld) 3.2 % 0-5 [facility] Glucose [Mass/Vol] 103 mg/dL 74-106 [facility] Comment on above: Fasting Glucose resu lt from 100 to 125 mg/dL suggests IMPAIRED HOMEOSTASIS per A.D.A. criteria. Neutrophils (Bld) [#/Vol] 5.8 10*3/uL 2.0-7.7 [facility] Neutrophils/100 WBC (Bld) 69.4 % 47-70 [facility] Potassium [Moles/Vol] 3.6 mmol/L 3.5-5.1 [facility] Protein [Mass/Vol] 7.7 g/dL 6.4-8.2 [facility] Sodium [Moles/Vol] 140 mmol/L 136-145 [facility] Testosterone [Mass/Vol] 9.88 ng/dL [facility] Comment on above: CENTRAL 90% REFERENC E RANGES MALE AGE <50 197.44 - 669.58 ng/dL MALE AGE > or = 50 187.72 - 684.19 ng/dL FEMALE AGE <50 8.38 - 35.01 ng/dL FEMALE AGE > or = 50 <7.00 - 35.92 ng/dL Effective as of 04/21/21 Triglyceride [Mass/Vol] 125 mg/dL <199 [facility] Comment on above: The drugs N-Acetylcy steine and Metamizole may falsely depress this assay.Serum Triglycerides Reference Interval Normal <150 mg/dL Borderline high 150 - 199 mg/dL High 200 - 499 mg/dL Very High > or = 500 mg/dL WBC (Bld) [#/Vol] 8.3 10*3/uL 4.4-11.0 [facility] Blood erythrocytes count (nu mber/volume)Ordered By: Dr. Velazquez on 02-17-2023 RBC (Bld) [#/Vol] 4.51 10*6/uL 4.2-5.4 [facility] Blood hemoglobin measurement (mass/volume)Ordered By: Dr. Velazquez on 02-17-2023 Hemoglobin (Bld) [Mass/Vol] 13.0 g/dL 12.0-15.0 [facility] Blood lymphocytes/100 leukoc ytesOrdered By: Dr. Velazquez on 02-17-2023 Lymphocytes/100 WBC (Bld) 19.0 % 19-41 [facility] Blood monocytes/100 leukocyt esOrdered By: Dr. Velazquez on 02-17-2023 Monocytes/100 WBC (Bld) 7.4 % 0-10 [facility] Blood platelet mean volumeOr dered By: Dr. Velazquez on 02-17-2023 Platelet mean volume (Bld) [Entitic vol] 11.2 fL 6.2-12.0 [facility] Determination of erythrocyte mean corpuscular volume (MCV)Ordered By: Dr. Velazquez on 02-17-2023 MCV (RBC) [Entitic vol] 90.9 fL 81-99 [facility] Hematocrit Auto (Bld) [Volum e fraction]Ordered By: Dr. Velazquez on 02-17-2023 Hematocrit (Bld) [Volume fraction] 41.0 % 37-47 [facility] Laboratory - Chemistry and C hemistry - challengeOrdered By: Dr. Velazquez on 02-17-2023 ALP [Catalytic activity/Vol] 93 U/L 45-117 [facility] ALT [Catalytic activity/Vol] 23 U/L 13-56 [facility] CO2 [Moles/Vol] 24.0 mmol/L 21.0-32.0 [facility] Cobalamin (Vitamin B12) [Mass/Vol] 412 pg/mL 211-911 [facility] Free T4 [Mass/Vol] 0.89 ng/dL 0.76-1.46 [facility] Globulin (S) [Mass/Vol] 4.2 g/dL 2.2-4.2 [facility] Urea nitrogen/Creatinine [Mass ratio] 18.2 mg/mg 10-20 [facility] Laboratory - Hematology and Cell countsOrdered By: Dr. Velazquez on 02-17-2023 Erythrocyte distribution width (RBC) [Entitic vol] 43.2 fL 35.1-43.9 [facility] Erythrocyte distribution width (RBC) [Ratio] 13.0 % 11.6-14.6 [facility] Immature granulocytes/100 WBC (Bld) 0.400 % 0.0-0.9 [facility] Comment on above: IG% - Immature Granu locytes (promyelocytes, myelocytes and metamyelocytes) > 1% indicates that a LEFT SHIFT is Present. MCH (RBC) [Entitic mass] 28.8 pg 27.0-32.0 [facility] Nucleated RBC/100 WBC (Bld) [Ratio] 0 % 0-5 [facility] MCHC Auto (RBC) [Mass/Vol]Or dered By: Dr. Velazquez on 02-17-2023 MCHC (RBC) [Mass/Vol] 31.7 g/dL 32-36 [facility] No Panel InformationOrdered By: Dr. Velazquez on 02-17-2023 Dehydroepiandrosterone Sulfate 26.6 ug/dL 41.2-243.7 [facility] Comment on above: Performed at: [address] [id number] Director: Angel Campos PhD, Phone: [phone] Estimated GFR (MDRD) Amer 96 mL/min >60 [facility] Comment on above: GFR Calc Estimated GFR (MDRD) Non-Af Amer 79 mL/min >60 [facility] Comment on above: Non- GFR Calc Follicle Stimulating Hormone 13.3 mIU/mL [facility] Comment on above: NORMAL REFERENCE RAN GES FEMALE FOLLICULAR 2.3 - 12.6 mIU/mL MID-CYCLE PEAK 5.2 - 17.5 mIU/mL LUTEAL 1.7 - 12.9 mIU/mL POST-MENOPAUSAL ON MHT 5.9 - 72.8 mIU/mL NOT ON MHT 12.7 - 132.2 mlU/mL MALE 0.7 - 10.8 mIU/mL Free Triiodothyronine (T3) pg/dL 2.5 pg/mL 2.18-3.98 [facility] Luteinizing Hormone 5.6 mIU/mL [facility] Comment on above: NORMAL REFERENCE RAN GES FEMALE FOLLICULAR 1.9 - 26.2 mIU/mL MID-CYCLE PEAK 22.8 - 76.1 mIU/mL LUTEAL 0.6 - 16.6 mIU/mL POST-MENOPAUSAL ON MHT 1.1 - 52.4 mIU/mL NOT ON MHT 8.6 - 61.8 mIU/mL MALE 1.2 - 10.6 mIU/mL Thyroid Stimulating Hormone (TSH) 1.70 uIU/mL 0.358-3.74 [facility] Vitamin D 25-Hydroxy 33.0 ng/mL [facility] Comment on above: Vitamin D 25(OH) Sta tus Range Deficiency <20 ng/mL (50nmol/L) Insufficiency 20 - 30 ng/mL (50 - 75 nmol/L) Sufficiency 30 - 100 ng/mL (75 - 250 nmol/L) Toxicity >100 ng/mL (>250 nmol/L) Platelets bldOrdered By: Dr. Velazquez on 02-17-2023 Platelets (Bld) [#/Vol] 283 10*3/uL 150-450 [facility] Serum or plasma albumin jamil urement (mass/volume)Ordered By: Dr. Velazquez on 02-17-2023 Albumin [Mass/Vol] 3.5 g/dL 3.2-5.0 [facility] Serum or plasma albumin/glob ulin mass ratioOrdered By: Dr. Velazquez on 02-17-2023 Albumin/Globulin [Mass ratio] 0.8 {ratio} 0.9-2.4 [facility] Serum or plasma calcium jaiml urement (mass/volume)Ordered By: Dr. Velazquez on 02-17-2023 Calcium [Mass/Vol] 8.9 mg/dL 8.5-10.1 [facility] Serum or plasma cholesterol in HDL measurement (mass/volume)Ordered By: Dr. Velazquez on 02-17-2023 Cholesterol in HDL [Mass/Vol] 55 mg/dL >40 [facility] Comment on above: The drugs N-Acetylcy steine and Metamizole may falsely depress this assay. Reference Range HDL <40 mg/dL Low HDL Cholesterol HDL >or= 60 mg/dL High HDL Cholesterol Serum or plasma cholesterol in VLDL measurement (mass/volume)Ordered By: Dr. Velazquez on 02-17-2023 Cholesterol in VLDL [Mass/Vol] 25 mg/dL 5-40 [facility] Serum or plasma cortisol satnam surement (mass/volume)Ordered By: Dr. Velazquez on 02-17-2023 Cortisol [Mass/Vol] 24.40 ug/dL 3.44-22.45 [facility] Comment on above: Adult (AM) 5.27 - 22 .45 ug/dL Adult (PM) 3.44 - 16.76 ug/dLPlease note revised CORTISOL reference range effective 2019. Serum or plasma creatinine m easurement (mass/volume)Ordered By: Dr. Velazquez on 02-17-2023 Creatinine [Mass/Vol] 0.82 mg/dL 0.55-1.02 [facility] Comment on above: The validity of the calculated GFR & GFRAA in patients over 70 years has not been determined. Clinical correlation is essential. Serum or plasma estradiol (E 2) measurement (mass/volume)Ordered By: Dr. Velazquez on 02-17-2023 E2 [Mass/Vol] 48.1 pg/mL [facility] Comment on above: NORMAL REFERENCE RAN GES FEMALE FOLLICULAR 21.4 - 164.8 pg/mL MID-CYCLE PEAK 49.9 - 367.2 pg/mL LUTEAL 40.2 - 259.0 pg/mL POST-MENOPAUSAL ON MHT <11.0 - 462.1 pg/mL NOT ON MHT <11.0 - 58.3 pg/mL MALE <11.0 - 52.5 pg/mL NOTE:[employer] HAS CONFIRMED THE DRUG FULVETRANT (FASLODEX) MAY CAUSE FALSELY ELEVATED ESTRADIOL RESULTS WHEN USING THIS TEST METHOD. IF PATIENT IS TAKING FULVESTRANT AN ALTERNATIVE METHOD SHOULD BE USED TO DETERMINE ESTRADIOL CONCENTRATION. Serum or plasma low density lipoprotein (LDL) cholesterol measurement (mass/volume)Ordered By: Dr. Velazquez on 02-17-2023 Cholesterol in LDL [Mass/Vol] 146 mg/dL 0-130 [facility] Serum or plasma urea nitroge n measurement (mass/volume)Ordered By: Dr. Velazquez on 02-17-2023 Urea nitrogen [Mass/Vol] 15 mg/dL 7-18 [facility] Thin prep Papanicolaou smear with manual screeningOrdered By: Dr. Velazquez on 02-17-2023 Thin prep Papanicolaou smear with manual screening 18 U/L 15-37 [facility] Thin prep Papanicolaou smear with manual screening 7 5-15 [facility] Whole blood hemoglobin A1c/t otal hemoglobin ratio (mass fraction)Ordered By: Dr. Velazquez on 02-17-2023 HbA1c (Bld) [Mass fraction] 5.3 % 3.8-5.6 [facility] Comment on above: Normal < 5.7 % Predi abetic 5.7 - 6.4 % Diabetic >or= 6.5 % Please note range changes. HCG QUAL UR B/Oon 08-05-2022 status Negative neg - pos Venessa lopez [facility] Quality Check Yes [facility] OBSOLETEon 07-12-2021 OBSOLETE Refill (RHBATH) MENDOZA JOHNSON ([id number]) 1975 F Date Time Provider Department 07/12/21 [place]E [place] RHBATH During your visit today, we recorded the following information about you: Kvng Duron MA 07/13/2021 11:48 AM Signed Pharmacy faxed requesting the following refill. Pending Prescriptions Disp Refills ERGOCALCIFEROL (VITAMIN D2) 1,250 MCG (50,000 UNIT) CAPSULE 12 capsule 3 Sig: TAKE 1 CAPSULE BY MOUTH ONE TIME A WEEK. SAMMY: Yes Patient last appointment: 06/19/2021 Next Appointment: 06/21/2022found Patient Phone numbers: [phone] (home) Request is for script(s) to be escript to pharmacy. Kvng Duron MA Allergies As of Date: 07/12/2021 Noted Allergy Reaction TREE AND SHRUB POLLEN 09/01/2020 14 - Other: See Comments Comments: seasonal Date Reviewed: 06/12/2021 Reviewed by: Carlos Turner LPN - Fully Assessed Reason for Visit: Refill Request [94] Order(s):ergocalcifer ol 50,000 unit capsule (VITAMIN D2, DRISDOL)TAKE 1 CAPSULE BY MOUTH ONE TIME A WEEK.Disp: 12 capsuleRfl: 3 Prescriptions as of 07/13/2021 - ergocalciferol 50,000 unit capsule (VITAMIN D2, DRISDOL) TAKE 1 CAPSULE BY MOUTH ONE TIME A WEEK. - mometasone (ELOCON) 0.1 % cream Apply to affected area once daily. - acetaminophen (TYLENOL) 325 mg cap Take 325 mg by mouth twice daily as needed. - naproxen (NAPROSYN) 500 mg tablet Take 1 tablet by mouth twice daily as needed for Pain. Take with food. - cetirizine (ZYRTEC) 10 mg tablet Take 1 tablet by mouth once daily. 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 Medications Discontinued During This Encounter Prescriptions - ergocalciferol 50,000 unit capsule (VITAMIN D2, DRISDOL) (Discontinued) Take 1 capsule by mouth one time a week. Encounter Status:Closed by ELIANE MO on 07/13/21 Normal [facility] BLOOD TB SCREEN, INCUBATEDon 04-28-2021 M. tuberculosis tuberculin stim IFN-g Ql (Bld) Negative Normal NEGAT [facility] Comment on above: Order Comment: Speci men Type: BLOOD SPECIMEN Performed By: #### 4 537-7 #### [facility] CLIA [id number] [address] [place] [address] MITOGEN MINUS NIL >10 Normal [facility] Comment on above: Order Comment: Speci men Type: BLOOD SPECIMEN Performed By: #### 4 537-7 #### [facility] CLIA [id number] [address] [place] [address] TB INTERPRETATION No evidence of current or previous infection with Mycobacterium tuberculosis. Normal [facility] Comment on above: Order Comment: Speci men Type: BLOOD SPECIMEN Performed By: #### 4 537-7 #### [facility] CLIA [id number] [address] [place] [address] TB NIL 0.07 IU/mL Normal [facility] Comment on above: Order Comment: Speci men Type: BLOOD SPECIMEN Performed By: #### 4 537-7 #### [facility] CLIA [id number] [address] [place] [address] TB1 AG MINUS NIL 0.00 IU/mL Normal <0.35 [facility] Comment on above: Order Comment: Speci men Type: BLOOD SPECIMEN Performed By: #### 4 537-7 #### [facility] CLIA [id number] [address] [place] [address] TB2 AG MINUS NIL 0.00 IU/mL Normal <0.35 [facility] Comment on above: Order Comment: Speci men Type: BLOOD SPECIMEN Performed By: #### 4 537-7 #### [facility] CLIA [id number] [address] [place] [address] CBC W Auto Differential pane l (Bld)on 04-28-2021 Basophils (Bld) [#/Vol] 0.05 10*3/uL Normal <0.11 [facility] Comment on above: Order Comment: Speci men Type: BLOOD SPECIMEN Performed By: #### 4 537-7 #### [facility] CLIA [id number] [address] [place] [address] Basophils/100 WBC (Bld) 0.5 % Normal [facility] Comment on above: Order Comment: Speci men Type: BLOOD SPECIMEN Performed By: #### 4 537-7 #### [facility] CLIA [id number] [address] [place] [address] Differential cell count method Nom (Bld) Auto Normal [facility] Comment on above: Order Comment: Speci men Type: BLOOD SPECIMEN Performed By: #### 4 537-7 #### [facility] CLIA [id number] [address] [place] [address] Eosinophils (Bld) [#/Vol] 0.28 10*3/uL Normal <0.46 [facility] Comment on above: Order Comment: Speci men Type: BLOOD SPECIMEN Performed By: #### 4 537-7 #### [facility] CLIA [id number] [address] [place] [address] Eosinophils/100 WBC (Bld) 2.9 % Normal [facility] Comment on above: Order Comment: Speci men Type: BLOOD SPECIMEN Performed By: #### 4 537-7 #### [facility] CLIA [id number] [address] [place] [address] Erythrocyte distribution width (RBC) [Ratio] 13.2 % Normal 11.5-15.0 [facility] Comment on above: Order Comment: Speci men Type: BLOOD SPECIMEN Performed By: #### 4 537-7 #### [facility] CLIA [id number] [address] [place] [address] Hematocrit (Bld) [Volume fraction] 41.7 % Normal 36.0-46.0 [facility] Comment on above: Order Comment: Speci men Type: BLOOD SPECIMEN Performed By: #### 4 537-7 #### [facility] CLIA [id number] [address] [place] [address] Hemoglobin (Bld) [Mass/Vol] 12.9 g/dL Normal 11.5-15.5 [facility] Comment on above: Order Comment: Speci men Type: BLOOD SPECIMEN Performed By: #### 4 537-7 #### [facility] CLIA [id number] [address] [place] [address] IMMATURE GRAN % 0.5 % Normal [facility] Comment on above: Order Comment: Speci men Type: BLOOD SPECIMEN Performed By: #### 4 537-7 #### [facility] CLIA [id number] [address] [place] [address] IMMATURE GRAN ABS 0.05 k/uL Normal <0.10 [facility] Comment on above: Order Comment: Speci men Type: BLOOD SPECIMEN Performed By: #### 4 537-7 #### [facility] CLIA [id number] [address] [place] [address] Lymphocytes (Bld) [#/Vol] 2.26 10*3/uL Normal 1.00-4.0 0 [facility] Comment on above: Order Comment: Speci men Type: BLOOD SPECIMEN Performed By: #### 4 537-7 #### [facility] CLIA [id number] [address] [place] [address] Lymphocytes/100 WBC (Bld) 23.7 % Normal [facility] Comment on above: Order Comment: Speci men Type: BLOOD SPECIMEN Performed By: #### 4 537-7 #### [facility] CLIA [id number] [address] [place] [address] MCH (RBC) [Entitic mass] 27.8 pg Normal 26.0-34.0 [facility] Comment on above: Order Comment: Speci men Type: BLOOD SPECIMEN Performed By: #### 4 537-7 #### [facility] CLIA [id number] [address] [place] [address] MCHC (RBC) [Mass/Vol] 30.9 g/dL Normal 30.5-36.0 [facility] Comment on above: Order Comment: Speci men Type: BLOOD SPECIMEN Performed By: #### 4 537-7 #### [facility] CLIA [id number] [address] [place] [address] MCV (RBC) [Entitic vol] 89.9 fL Normal 80.0-100.0 [facility] Comment on above: Order Comment: Speci men Type: BLOOD SPECIMEN Performed By: #### 4 537-7 #### [facility] CLIA [id number] [address] [place] [address] Monocytes (Bld) [#/Vol] 0.62 10*3/uL Normal <0.87 [facility] Comment on above: Order Comment: Speci men Type: BLOOD SPECIMEN Performed By: #### 4 537-7 #### [facility] CLIA [id number] [address] [place] [address] Monocytes/100 WBC (Bld) 6.5 % Normal [facility] Comment on above: Order Comment: Speci men Type: BLOOD SPECIMEN Performed By: #### 4 537-7 #### [facility] CLIA [id number] [address] [place] [address] Neutrophils (Bld) [#/Vol] 6.26 10*3/uL Normal 1.45-7.5 0 [facility] Comment on above: Order Comment: Speci men Type: BLOOD SPECIMEN Performed By: #### 4 537-7 #### [facility] CLIA [id number] [address] [place] [address] Neutrophils/100 WBC (Bld) 65.9 % Normal [facility] Comment on above: Order Comment: Speci men Type: BLOOD SPECIMEN Performed By: #### 4 537-7 #### [facility] CLIA [id number] [address] [place] [address] Nucleated RBC (Bld) [#/Vol] 10*3/uL Normal <0.01 [facility] Comment on above: Order Comment: Speci men Type: BLOOD SPECIMEN Performed By: #### 4 537-7 #### [facility] CLIA [id number] [address] [place] [address] Nucleated RBC/100 WBC (Bld) [Ratio] 0.0 /100 WBC Normal 0.0 [facility] Comment on above: Order Comment: Speci men Type: BLOOD SPECIMEN Performed By: #### 4 537-7 #### [facility] CLIA [id number] [address] [place] [address] Platelet mean volume (Bld) [Entitic vol] 12.3 fL Normal 9.0-12.7 [facility] Comment on above: Order Comment: Speci men Type: BLOOD SPECIMEN Performed By: #### 4 537-7 #### [facility] CLIA [id number] [address] [place] [address] Platelets (Bld) [#/Vol] 285 10*3/uL Normal 150-400 [facility] Comment on above: Order Comment: Speci men Type: BLOOD SPECIMEN Performed By: #### 4 537-7 #### [facility] CLIA [id number] [address] [place] [address] RBC (Bld) [#/Vol] 4.64 10*6/uL Normal 3.90-5.20 [facility] Comment on above: Order Comment: Speci men Type: BLOOD SPECIMEN Performed By: #### 4 537-7 #### [facility] CLIA [id number] [address] [place] [address] WBC (Bld) [#/Vol] 9.52 10*3/uL Normal 3.70-11.00 [facility] Comment on above: Order Comment: Speci men Type: BLOOD SPECIMEN Performed By: #### 4 537-7 #### [facility] CLIA [id number] [address] [place] [address] CCP ANTIBODY IGGon 1 Cyclic citrullinated peptide IgG Qn <15 Normal <20 [facility] Comment on above: Order Comment: Speci men Type: BLOOD SPECIMEN Result Comment: < 20 units: Negative 20-39 units: Weak Positive 40-59 units: Moderate Positive > 60 units: Strong Positive The following results were obtained with the [employer] QUANTA Lite CCP3 IgG SAMANTHA. Anti-CCP values obtained with different manufacturers' assay methods may not be used interchangeably. The magnitude of the reported IgG levels cannot be correlated to an endpoint titer. Performed By: #### V ITD #### [facility] CLIA [id number] [address] [place] [address] CK CREATINE KINASEon 021 CK [Catalytic activity/Vol] 73 U/L Normal 42-196 [facility] Comment on above: Order Comment: Specraul freitas Type: BLOOD SPECIMEN Performed By: #### 4 537-7 #### [facility] CLIA [id number] [address] [place] [address] CNOVon 04-28-2021 CNOV Office Visit (RHBATH ) MENDOZA JOHNSON ([id number]) 1975 F Date Time Provider Department 04/28/21 10:20 AM [facility] During your visit today, we recorded the following information about you: Temperature Pulse Blood pressure Weight 95.2 degrees 72/minute 155/88 96.6 kg Eliane Mo MD 04/28/2021 1:47 PM Signed RHEUMATOLOGY NEW PATIENT NOTE REFERRING PHYSICIAN: Yang Nieves CHIEF COMPLAINT: Patient presents with: Joint Pain New Patient HPI: Mendoza Johnson is a 45 year old female who presents with joint pain for several years. She was seen by Dr. Gilliland 7 years ago. inflammatory markers were high, rheumatoid was negativeshe was prescribed MTX which did not help. So she weaned off MTX. Joint pain over feet, hips, low back, hands. Pain worsening in the last year. Hands and feet pain are more recent. She likes to be active but unable to do so due to pain. It takes 2 days to recover from work outs. She tried tylenol, ibuprofen. No swelling, may be in hands. AM stiffness lasting 10-15 min. Gelling phenomenon. Pain depends on her activities. She has a stand up desk. Pain happens as soon she rests after activities.she tried voltaren gel. Ulcerative proctitis, was on Asacol which she took for a month. It was not refilled, she never followed up after that. She does not feel colitis is completely under control. Review of records - right facial and neck pain, right parotid swelling. treated empirically for parotitis with antibiotics and sialogogues. This improved her symptoms TMJ pain? Shoulder pain. Had injection, 2020 saw ortho. Helped. PT did not help. H/o sciatica post laparoscopic appendectomy for acute appendicitis with periappendicitis that a performed for her on June 16, 2016 ADD Family history of autoimmune disease: grandmother with RA, hip replacements, mother with 2 hip replacements, UC. Smoking status: Tobacco Use: Never Rheumatology REVIEW OF SYSTEMS: Constitutional: Recent Weight Change: YES gained 20 lb in the last year Fatigue: YES Fever: No Night sweats: No Heent: Alopecia: No H/o Inflammatory eye disease (iritis/scleritis): No Hearing loss: No Frequent sinusitis: No Oral ulcers: No Sicca: No Parotid swelling: No Hoarseness: No Dysphagia: No Heme/lymph: Lymphadenopathy: No Hematological abnormalities (anemia, thrombocytopenia, leukopenia): No Abnormal bleeding: No Skin: Malar or discoid lesions: No Photosensitivity: No Other rashes: No Raynaud's phenomenon: No Hives: No Tightness: No Nodules/bumps: No Easy Bruising: No Nail changes: No H/o psoriasis: No Gastroenterology: Above Respiratory: Dry cough/SOB: No Cardiovascular: Pain in chest: No Musculoskeletal: Per HPI Joint pain or swelling: No Prolonged morning stiffness: No Back pain or neck pain: No Muscle weakness: No Genitourinary: Vaginal dryness: No Rash/ulcers: No Neurological: Headaches: YES Sensitivity or pain of hands and/or feet: YES right hand sometimes may be due to right shoulder issues Psychiatry: Anxiety: No Depression: No Poor sleep: YES non restful. Never had sleep study H/o loss: No H/o thrombosis: No Increased susceptibility to infection: No PAST MEDICAL HISTORY Diagnosis Date - ADD (attention deficit disorder) 03/13/2016 was on medication till about mid 30's. Adderll once a day. - Anal fissure 05/07/2009 - Appendicitis - Dyslipidemia 07/14/2016 - Inflammatory arthropathy 03/13/2016 Markers elevated but Rheum said negative for Rheumatoid arthritis. 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 Wang PAST SURGICAL HISTORY Procedure Laterality Date - COLONOSCOP W/ OR W/O BRSH SPEC 06/07/2014 repeat 10 yrs - LAPAROSCOPY, SURGICAL, APPENDECTOMY 06/17/16 - REMOVAL OF TONSILS,<12 Y/O 1985 Tonsillectomy alone Current Outpatient Medications Medication Sig - acetaminophen (TYLENOL) 325 mg cap Take 325 mg by mouth twice daily as needed. - cetirizine (ZYRTEC) 10 mg tablet Take 1 tablet by mouth once daily. - naproxen (NAPROSYN) 500 mg tablet Take 1 tablet by mouth twice daily as needed for Pain. Take with food. (Patient not taking: Reported on 04/03/2021 ) No current facility-administered medications for this visit. ALLERGIES Allergen Reactions - Tree And Shrub Poll* Other: See Comments seasonal FAMILY HISTORY Problem Relation Age of Onset - Arthritis Mother VANESSA - Hypertension Mother - Arthritis Father VANESSA - Diabetes Father - Melanoma Father - Breast Cancer Maternal Aunt - Diabetes Paternal Grandfather - No Known Problems Brother - Alzheimer's Disease Maternal Grandfather - Arthritis Maternal Grandmother - Cancer Paternal Grandmother Social History Tobacco Us (more content not included)... Normal [facility] CRP SerPl-mCncon 04-28-2021 CRP [Mass/Vol] 1.3 mg/dL High <0.9 [facility] Comment on above: Order Comment: Speci men Type: BLOOD SPECIMEN Performed By: #### 4 537-7 #### [facility] CLIA [id number] [address] [place] [address] Comprehensive metabolic 2000 panelon 04-28-2021 Albumin [Mass/Vol] 4.5 g/dL Normal 3.9-4.9 [facility] Comment on above: Order Comment: Speci men Type: BLOOD SPECIMEN Performed By: #### 4 537-7 #### [facility] CLIA [id number] [address] [place] [address] ALP [Catalytic activity/Vol] 118 U/L Normal 34-123 [facility] Comment on above: Order Comment: Speci men Type: BLOOD SPECIMEN Performed By: #### 4 537-7 #### [facility] CLIA [id number] [address] [place] [address] ALT With P-5'-P [Catalytic activity/Vol] 17 U/L Normal 7-38 [facility] Comment on above: Order Comment: Speci men Type: BLOOD SPECIMEN Performed By: #### 4 537-7 #### [facility] CLIA [id number] [address] [place] [address] Anion gap [Moles/Vol] 12 mmol/L Normal 9-18 [facility] Comment on above: Order Comment: Speci men Type: BLOOD SPECIMEN Performed By: #### 4 537-7 #### [facility] CLIA [id number] [address] [place] [address] AST With P-5'-P [Catalytic activity/Vol] 27 U/L Normal 13-35 [facility] Comment on above: Order Comment: Speci men Type: BLOOD SPECIMEN Performed By: #### 4 537-7 #### [facility] CLIA [id number] [address] [place] [address] Bilirubin [Mass/Vol] 0.5 mg/dL Normal 0.2-1.3 [facility] Comment on above: Order Comment: Speci men Type: BLOOD SPECIMEN Performed By: #### 4 537-7 #### [facility] CLIA [id number] [address] [place] [address] Calcium [Mass/Vol] 9.5 mg/dL Normal 8.5-10.2 [facility] Comment on above: Order Comment: Speci men Type: BLOOD SPECIMEN Performed By: #### 4 537-7 #### [facility] CLIA [id number] [address] [place] [address] Chloride [Moles/Vol] 101 mmol/L Normal 97-105 [facility] Comment on above: Order Comment: Speci men Type: BLOOD SPECIMEN Performed By: #### 4 537-7 #### [facility] CLIA [id number] [address] [place] [address] CO2 [Moles/Vol] 26 mmol/L Normal 22-30 [facility] Comment on above: Order Comment: Speci men Type: BLOOD SPECIMEN Performed By: #### 4 537-7 #### [facility] CLIA [id number] [address] [place] [address] Creatinine [Mass/Vol] 0.73 mg/dL Normal 0.58-0.96 [facility] Comment on above: Order Comment: Speci men Type: BLOOD SPECIMEN Performed By: #### 4 537-7 #### [facility] CLIA [id number] [address] [place] [address] GFR/1.73 sq M.predicted MDRD (S/P/Bld) [Vol rate/Area] mL/min/{1.73_m2} Normal [facility] Comment on above: Order Comment: Speci men Type: BLOOD SPECIMEN Result Comment: >60 eGFR (Estimated GFR) Units of measure: mL/min/1.73 meters squared eGFR is derived from the reexpressed MDRD Study equation using the following parameters: serum creatinine, age, gender and race. The creatinine assay has been calibrated to be traceable to IDMS. An eGFR <60 mL/min/1.73m2 for >3 months is consistent with chronic kidney disease. Refer to KDOQI guidelines for clinical interpretation. In patients with unstable renal function, e.g. those with acute kidney injury, the eGFR may not accurately reflect actual GFR. Performed By: #### 4 537-7 #### [facility] CLIA [id number] [address] [place] [address] Glucose [Mass/Vol] 90 mg/dL Normal 74-99 [facility] Comment on above: Order Comment: Speci men Type: BLOOD SPECIMEN Result Comment: The [place] Diabetes Association (ADA) provides guidance for cutoff values for fasting glucose and random glucose. The ADA defines fasting as no caloric intake for at least 8 hours. Fasting plasma glucose results between 100 to 125 mg/dL indicate increased risk for diabetes (prediabetes). Fasting plasma glucose results greater than or equal to 126 mg/dL meet the criteria for diagnosis of diabetes. In the absence of unequivocal hyperglycemia, results should be confirmed by repeat testing. In a patient with classic symptoms of hyperglycemia or hyperglycemic crisis, random plasma glucose results greater than or equal to 200 mg/dL meet the criteria for diagnosis of diabetes. Reference: Standards of Medical Care in Diabetes 2016, [place] Diabetes Association. Diabetes Care. 2016.39(Suppl 1). Performed By: #### 4 537-7 #### [facility] CLIA [id number] [address] [place] [address] Potassium [Moles/Vol] 4.2 mmol/L Normal 3.7-5.1 [facility] Comment on above: Order Comment: Speci men Type: BLOOD SPECIMEN Performed By: #### 4 537-7 #### [facility] CLIA [id number] [address] [place] [address] Protein [Mass/Vol] 7.6 g/dL Normal 6.3-8.0 [facility] Comment on above: Order Comment: Speci men Type: BLOOD SPECIMEN Performed By: #### 4 537-7 #### [facility] CLIA [id number] [address] [place] [address] Sodium [Moles/Vol] 139 mmol/L Normal 136-144 [facility] Comment on above: Order Comment: Speci men Type: BLOOD SPECIMEN Performed By: #### 4 537-7 #### [facility] CLIA [id number] [address] [place] [address] Urea nitrogen [Mass/Vol] 13 mg/dL Normal 7-21 [facility] Comment on above: Order Comment: Speci men Type: BLOOD SPECIMEN Performed By: #### 4 537-7 #### [facility] CLIA [id number] [address] [place] [address] ESR Westergren method (Bld) [Velocity]on 04-28-2021 ESR (Bld) [Velocity] 21 mm/h High 0-20 [facility] Comment on above: Order Comment: Speci men Type: BLOOD SPECIMEN Performed By: #### 4 537-7 #### [facility] CLIA [id number] [address] [place] [address] FERRITIN BLDon 04-28-2021 Ferritin [Mass/Vol] 38.1 ng/mL Normal 14.7-205.1 [facility] Comment on above: Order Comment: Speci men Type: BLOOD SPECIMEN Performed By: #### F ERR #### [facility] CLIA [id number] [address] [place] [address] HBV surface Ab IA Ql (S)on 0 04-28-2021 HBV surface Ag Ql (S) Negative Normal Negative [facility] Comment on above: Order Comment: Speci men Type: BLOOD SPECIMEN Performed By: #### 4 537-7 #### [facility] CLIA [id number] [address] [place] [address] HBV surface Ab Ser-aCncon HBV surface Ab Qn (S) <3.10 Normal <10.00 [facility] Comment on above: Order Comment: Speci men Type: BLOOD SPECIMEN Result Comment: Isis ent is considered not to have protective immunity to HBV infection. Performed By: #### V ITD #### [facility] CLIA [id number] [address] [place] [address] HCV Ab Ser Qlon 04-28-2021 HCV Ab Ql (S) Negative Normal Negative [facility] Comment on above: Order Comment: Speci men Type: BLOOD SPECIMEN Performed By: #### 4 537-7 #### [facility] CLIA [id number] [address] [place] [address] HEP B CORE AB TOTALon 2020 HBV core Ab Ql (S) Negative Normal NEGAT [facility] Comment on above: Order Comment: Speci men Type: BLOOD SPECIMEN Performed By: #### V ITD #### [facility] CLIA [id number] [address] [place] [address] HLA-B27 PCRon 04-28-2021 HLA-B27 DNA RESULT Negative Normal [facility] Comment on above: Order Comment: Speci men Type: BLOOD SPECIMEN Result Comment: HLA- B27 is strongly associated with ankylosing spondylitis (). HLA-B27 is also associated with other seronegative arthropathies such as Alvarez syndrome and psoriatic arthritis as well as extra-articular diseases such as anterior uveitis and inflammatory bowel disease. Greater than 90% of patients with are HLA-B27 positive. The frequency of HLA-B27 varies by ethnic group but generally <10 % in most populations. HLA-B27 associated susceptibility to varies by population and HLA-B27 alleles detected. Some alleles such as B27:05 are associated with high susceptibility while others such B27:06 and B27:09 are associated with low susceptibility. HLA-B27 allele typing is recommended in HLA-B27 positive cases. HLA typing performed by PCR-RSSOP and/or SBT. This test was developed and its performance characteristics determined by [facility]. The test has not been cleared or approved by the [place] FDA. However, FDA approval was not necessary since this lab is certified under CLIA for high complexity testing. Test performed by: [facility] [facility], [address], [place] [address] CLIA [id number] Performed By: #### B 27PCR #### [facility] CLIA [id number] [address] [id number] [id number] [place] IRON + TIBCon 04-28-2021 Iron [Mass/Vol] 69 ug/dL Normal 41-186 [facility] Comment on above: Order Comment: Speci men Type: BLOOD SPECIMEN Performed By: #### 4 537-7 #### [facility] CLIA [id number] [address] [place] [address] Iron binding capacity [Mass/Vol] 358 ug/dL Normal 232-386 [facility] Comment on above: Order Comment: Speci men Type: BLOOD SPECIMEN Performed By: #### 4 537-7 #### [facility] CLIA [id number] [address] [place] [address] Iron saturation [Mass fraction] 19 % Normal 15-57 [facility] Comment on above: Order Comment: Speci men Type: BLOOD SPECIMEN Performed By: #### 4 537-7 #### [facility] CLIA [id number] [address] [place] [address] RHEUMATOID FACTOR BLon 04-28 Rheumatoid factor Qn [IU]/mL Normal <16 [facility] Comment on above: Order Comment: Speci men Type: BLOOD SPECIMEN Performed By: #### V ITD #### [facility] CLIA [id number] [address] [place] [address] UA WITH CULTURE IF INDICATED on 04-28-2021 UA WITH CULTURE IF INDICATED COLOR: Yellow CLARITY: Cloudy GLUCOSE, URINE: Negative BILIRUBIN, URINE: Negative KETONES, URINE: Negative SPECIFIC GRAVITY, UR: 1.021 HEMOGLOBIN/BLOOD, UR: Negative PH, URINE: 5.5 PROTEIN, URINE: Negative UROBILINOGEN: 0.2 EU/dL NITRITES: Negative LEUKEST: Moderate WBC, URINE: 11-25 /HPF RBC, URINE: 3-5 /HPF BACTERIA: None Seen SQUAMOUS EPITHELIAL CELLS (AUWI): 2.6 HYALINE CASTS: 1-3 /LPF CULTURE, URINE: 10,000-<50,000 CFU/mL Three or more organisms, no one type predominant, suggesting contamination during collection. Recollect if clinically indicated. Abnormal [facility] Comment on above: Order Comment: Speci men Type: BLOOD SPECIMEN Performed By: #### V ITD #### [facility] CLIA [id number] [address] [place] [address] VITAMIN D 25 HYDROXYon 04-28 25-hydroxyvitamin D3 [Mass/Vol] 25.1 ng/mL Low 30.0-100.0 [facility] Comment on above: Order Comment: Speci men Type: BLOOD SPECIMEN Result Comment: Clas sification of 25 [place] Vitamin D status: Deficiency: < 20 ng/ml. Insufficientcy: 20-30 ng/ml. Sufficiency: 30-100 ng/ml. Performed By: #### V ITD #### [facility] CLIA [id number] [address] [place] [address] XR FOOT 3V AP/LAT/OBL LTon 0 04-28-2021 XR FOOT 3V AP/LAT/OBL LT * * *Final Repo rt* * * DATE OF EXAM: Apr 28 2021 11:35AM [id number] - XR FOOT 3V AP/LAT/OBL LT / PROCEDURE REASON: Pain in joint, multiple sites * * * * Physician Interpretation * * * * EXAM TITLE: XR FOOT 3V AP/LAT/OBL RT, XR FOOT 3V AP/LAT/OBL LT DATE: 04/28/2021 COMPARISON: None CLINICAL INDICATION/HISTORY: Chronic bilateral foot pain TECHNIQUE: AP, lateral and oblique views of both feet are present. RESULT: No fractures or subluxations are noted. No bony erosions are seen. The joint spaces are well preserved. The mineralization of the bones is normal. There is no significant soft tissue swelling. Small bilateral calcaneal enthesophytes at the Achilles tendon and plantar fascia insertions. IMPRESSION: Bilateral calcaneal enthesopathy. Otherwise negative bilateral feet. Header Boss: JB Transcribe Date/Time: Apr 28 2021 4:08P Dictated by : LELAND HANEY MD This examination was interpreted and the report reviewed and electronically signed by: LELAND HANEY MD on Apr 28 2021 4:12PM EST [id number] N Normal [facility] XR FOOT 3V AP/LAT/OBL RTon 0 04-28-2021 XR FOOT 3V AP/LAT/OBL RT * * *Final Repo rt* * * DATE OF EXAM: Apr 28 2021 11:35AM [id number] - XR FOOT 3V AP/LAT/OBL RT / PROCEDURE REASON: Pain in joint, multiple sites * * * * Physician Interpretation * * * * EXAM TITLE: XR FOOT 3V AP/LAT/OBL RT, XR FOOT 3V AP/LAT/OBL LT DATE: 04/28/2021 COMPARISON: None CLINICAL INDICATION/HISTORY: Chronic bilateral foot pain TECHNIQUE: AP, lateral and oblique views of both feet are present. RESULT: No fractures or subluxations are noted. No bony erosions are seen. The joint spaces are well preserved. The mineralization of the bones is normal. There is no significant soft tissue swelling. Small bilateral calcaneal enthesophytes at the Achilles tendon and plantar fascia insertions. IMPRESSION: Bilateral calcaneal enthesopathy. Otherwise negative bilateral feet. Header Boss: PSCB Transcribe Date/Time: Apr 28 2021 4:08P Dictated by : LELAND HANEY MD This examination was interpreted and the report reviewed and electronically signed by: LELAND HANEY MD on Apr 28 2021 4:12PM EST [id number] N [facility] XR HAND 3V PA/LAT/OBL LTon 0 04-28-2021 XR HAND 3V PA/LAT/OBL LT * * *Final Repo rt* * * DATE OF EXAM: Apr 28 2021 11:29AM [id number] - XR HAND 3V PA/LAT/OBL LT / PROCEDURE REASON: Pain in joint, multiple sites * * * * Physician Interpretation * * * * EXAM TITLE: XR HAND 3V PA/LAT/OBL RT, XR HAND 3V PA/LAT/OBL LT DATE: 04/28/2021 COMPARISON: None. CLINICAL INDICATION/HISTORY: Chronic bilateral hand pain TECHNIQUE: PA, lateral and oblique of both hands are presented. RESULT: No fractures or subluxations are noted. No bony erosions are seen. Mild scattered osteoarthritic changes of the bilateral DIP joints. The mineralization of the bones is normal. There is no significant soft tissue swelling. 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 Header Boss: PSCB Transcribe Date/Time: Apr 28 2021 4:03P Dictated by : LELAND HANEY MD This examination was interpreted and the report reviewed and electronically signed by: LELAND HANEY MD on Apr 28 2021 4:07PM EST [id number] N [facility] XR HAND 3V PA/LAT/OBL RTon 0 04-28-2021 XR HAND 3V PA/LAT/OBL RT * * *Final Repo rt* * * DATE OF EXAM: Apr 28 2021 11:29AM [id number] - XR HAND 3V PA/LAT/OBL RT / PROCEDURE REASON: Pain in joint, multiple sites * * * * Physician Interpretation * * * * EXAM TITLE: XR HAND 3V PA/LAT/OBL RT, XR HAND 3V PA/LAT/OBL LT DATE: 04/28/2021 COMPARISON: None. CLINICAL INDICATION/HISTORY: Chronic bilateral hand pain TECHNIQUE: PA, lateral and oblique of both hands are presented. RESULT: No fractures or subluxations are noted. No bony erosions are seen. Mild scattered osteoarthritic changes of the bilateral DIP joints. The mineralization of the bones is normal. There is no significant soft tissue swelling. 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 Header Boss: JB Transcribe Date/Time: Apr 28 2021 4:03P Dictated by : LELAND HANEY MD This examination was interpreted and the report reviewed and electronically signed by: LELAND HANEY MD on Apr 28 2021 4:07PM EST [id number] N Normal [facility] XR LUMBAR 2V AP/LATon 2020 XR LUMBAR 2V AP/LAT * * *Final Report* * * DATE OF EXAM: Apr 28 2021 11:37AM [id number] [id number] - XR LUMBAR 2V AP/LAT / PROCEDURE REASON: Pain in joint, multiple sites * * * * Physician Interpretation * * * * EXAM TITLE: XR LUMBAR 2V AP/LAT, XR SI JTS 2V AP PELV/[place] DATE: 04/28/2021 COMPARISON: 11/22/2020 CLINICAL INDICATION/HISTORY: Low back pain TECHNIQUE: AP and lateral views of the lumbar spine are presented. AP and Butterfield views of the bilateral sacroiliac joints. RESULT: Lumbar spine: There are five opi-qmp-cwmbxel lumbar vertebra. No fracture or subluxations are noted. Relatively mild degenerative disease L1-L2, L2-L3, L3-L4, and L5-S1 with slight loss of disc and endplate osteophyte formation. No osseous destructive process. Sacroiliac joints: Sacroiliac joints are symmetric. No ankylosis, sclerosis, erosive changes. Osseous sacrum is intact. Hip joint spaces relatively well-preserved. Bowel anastomotic staple line projects right lower quadrant. IMPRESSION: Lumbar spine: Mild multilevel degenerative changes as noted. No acute abnormality. Sacroiliac joints: Within normal limits. Header Boss: PSCB Transcribe Date/Time: Apr 29 2021 1:32P Dictated by : LELAND HANEY MD This examination was interpreted and the report reviewed and electronically signed by: LELAND HANEY MD on Apr 29 2021 1:40PM EST [id number] N Normal [facility] XR SI JTS 2V AP PELV/FERGUSO Non 04-28-2021 XR SI JTS 2V AP PELV/BUTTERFIELD * * *Final Report* * * DATE OF EXAM: Apr 28 2021 11:36AM [id number] - XR SI JTS 2V AP PELV/BUTTERFIELD / PROCEDURE REASON: Pain in joint, multiple sites * * * * Physician Interpretation * * * * EXAM TITLE: XR LUMBAR 2V AP/LAT, XR SI JTS 2V AP PELV/BUTTERFIELD DATE: 04/28/2021 COMPARISON: 11/22/2020 CLINICAL INDICATION/HISTORY: Low back pain TECHNIQUE: AP and lateral views of the lumbar spine are presented. AP and Butterfield views of the bilateral sacroiliac joints. RESULT: Lumbar spine: There are five kos-lau-ajvfkos lumbar vertebra. No fracture or subluxations are noted. Relatively mild degenerative disease L1-L2, L2-L3, L3-L4, and L5-S1 with slight loss of disc and endplate osteophyte formation. No osseous destructive process. Sacroiliac joints: Sacroiliac joints are symmetric. No ankylosis, sclerosis, erosive changes. Osseous sacrum is intact. Hip joint spaces relatively well-preserved. Bowel anastomotic staple line projects right lower quadrant. IMPRESSION: Lumbar spine: Mild multilevel degenerative changes as noted. No acute abnormality. Sacroiliac joints: Within normal limits. Header Boss: JB Transcribe Date/Time: Apr 29 2021 1:32P Dictated by : LELAND HANEY MD This examination was interpreted and the report reviewed and electronically signed by: LELAND HANEY MD on Apr 29 2021 1:40PM EST [id number] N Normal [facility] XR Lumbar spine 3 Viewson IMPRESSION: DEGENERATIVE CHANGE DESCRIBED Header Boss: [facility] Transcribe Date/Time: Nov 22 2020 11:44A Dictated by : JESUS ADAMES MD This examination was interpreted and the report reviewed and electronically signed by: JESUS ADAMES MD on Nov 22 2020 11:46AM EST DIVISION OF RADIOLOGY * * *Final Report* * * DATE OF EXAM: Nov 22 2020 11:42AM [id number] - XR LUMBAR 3V AP/LAT/L5-S1 / PROCEDURE REASON: Acute right-sided low back pain with right-sided sciatica * * * * Physician Interpretation * * * * Examination: XR LUMBAR 3V AP/LAT/L5-S1 History: Acute right-sided low back pain with right-sided sciatica Technique: XR LUMBAR 3V AP/LAT/L5-S1 Comparison: None RESULT: 5 nonrib-bearing lumbar-type vertebrae. For numbering purposes, L4-5 is at the level of the iliac crests. Mild spondylosis and osteophytosis throughout. Normal lordosis. Normal alignment. Mild L4-5 and moderate L5-S1 disc space narrowing. Mild degenerative change involving the posterior elements from L4 through S1 SI joints appear unremarkable DIVISION OF RADIOLOGY Provider, Julien Lee - 11/22/2020 * * *Final Report* * * DATE OF EXAM: Nov 22 2020 11:42AM [id number] - XR LUMBAR 3V AP/LAT/L5-S1 / PROCEDURE REASON: Acute right-sided low back pain with right-sided sciatica * * * * Physician Interpretation * * * * Examination: XR LUMBAR 3V AP/LAT/L5-S1 History: Acute right-sided low back pain with right-sided sciatica Technique: XR LUMBAR 3V AP/LAT/L5-S1 Comparison: None RESULT: 5 nonrib-bearing lumbar-type vertebrae. For numbering purposes, L4-5 is at the level of the iliac crests. Mild spondylosis and osteophytosis throughout. Normal lordosis. Normal alignment. Mild L4-5 and moderate L5-S1 disc space narrowing. Mild degenerative change involving the posterior elements from L4 through S1 SI joints appear unremarkable IMPRESSION IMPRESSION: DEGENERATIVE CHANGE DESCRIBED Header Boss: PSCB Transcribe Date/Time: Nov 22 2020 11:44A Dictated by : JESUS ADAMES MD This examination was interpreted and the report reviewed and electronically signed by: JESUS ADAMES MD on Nov 22 2020 11:46AM EST [facility] Radiology Study observation (narrative) [facility] XR Lumbar spine 3 ViewsOrder ed By: [facility] Provider on 11-22-2020 [facility] Vital Signs Date Time Vital Sign Value Performing Clinician Facility 01-07-2025 06:54-0400 Body height 168.[address] Trent Velazquez DO Work Phone: [facility] 01-07-2025 06:54-0400 Body mass index (BMI) [Ratio] 36.6 kg/m2 Dr. Trent Velazquez DO Work Phone: [facility] 01-07-2025 06:54-0400 Body temperature 98.2 [degF] Dr. Trent Velazquez DO Work Phone: [facility] 01-07-2025 06:54-0400 Body weight 104.[address] Trent Velazquez DO Work Phone: [facility] 01-07-2025 06:54-0400 Diastolic blood pressure 80 mm[Hg] Dr. Trent Velazquez DO Work Phone: [facility] 01-07-2025 06:54-0400 Heart rate 72 /min Dr. Trent Velazquez DO Work Phone: [facility] 01-07-2025 06:54-0400 SaO2% (BldA) [Mass fraction] 97 % Dr. Trent Velazquez DO Work Phone: [facility] 01-07-2025 06:54-0400 Systolic blood pressure 120 mm[Hg] Dr. Trent Velazquez DO Work Phone: [facility] 02-08-2024 10:42-0400 Body height 167.6 cm Benjamin Gagnon MD Work Phone: [facility] 02-08-2024 10:42-0400 Body mass index (BMI) [Ratio] 34.86 kg/m2 Benjamin Gagnon MD Work Phone: [facility] 02-08-2024 10:42-0400 Body weight 97.98 kg Benjamin Gagnon MD Work Phone: [facility] 08-24-2023 23:09-0500 Diastolic blood pressure 90 mm[Hg] [facility] 08-24-2023 23:09-0500 Heart rate 78 /min [facility] 08-24-2023 23:09-0500 Respiratory rate 16 /min [facility] 08-24-2023 23:09-0500 SaO2% (BldA) [Mass fraction] 98 % [facility] 08-24-2023 23:09-0500 Systolic blood pressure 145 mm[Hg] [facility] 08-24-2023 20:44-0500 Body height 167.64 cm [facility] 08-24-2023 20:44-0500 Body mass index (BMI) [Ratio] 36.6 kg/m2 [facility] 08-24-2023 20:44-0500 Body temperature 98.6 [degF] [facility] 08-24-2023 20:44-0500 Body weight 102.96 kg [facility] 04-28-2023 09:23-0400 Diastolic blood pressure 98 mm[Hg] [facility] 04-28-2023 09:23-0400 Heart rate 72 /min [facility] 04-28-2023 09:23-0400 Respiratory rate 14 /min [facility] 04-28-2023 09:23-0400 SaO2% (BldA) [Mass fraction] 97 % [facility] 04-28-2023 09:23-0400 Systolic blood pressure 138 mm[Hg] [facility] 04-28-2023 06:39-0400 Body height 167.64 cm [facility] 04-28-2023 06:39-0400 Body mass index (BMI) [Ratio] 35.6 kg/m2 [facility] 04-28-2023 06:39-0400 Body temperature 97.8 [degF] [facility] 04-28-2023 06:39-0400 Body weight 100.24 kg [facility] 01-27-2023 17:16-0400 Body weight 99.34 kg Dania Church APRN.CNP Work Phone: [facility] 01-27-2023 17:16-0400 Diastolic blood pressure 76 mm[Hg] Dania Church APRN.CNP Work Phone: [facility] 01-27-2023 17:16-0400 Heart rate 84 /min Dania Church APRN.TYPE PHOTOGRAPHY SUPERVISOR Work Phone: [facility] 01-27-2023 17:16-0400 Respiratory rate 14 /min Dania Church RESOURCE SPECIALIST.TYPE PHOTOGRAPHY SUPERVISOR Work Phone: [facility] 01-27-2023 17:16-0400 Systolic blood pressure 122 mm[Hg] Dania Church RESOURCE SPECIALIST.TYPE PHOTOGRAPHY SUPERVISOR Work Phone: [facility] 09-09-2022 14:30-0500 Body weight 94.8 kg Lucina Wang APRN.TYPE PHOTOGRAPHY SUPERVISOR Work Phone: [facility] 09-09-2022 14:30-0500 Diastolic blood pressure 78 mm[Hg] Lucina Wang APRN.TYPE PHOTOGRAPHY SUPERVISOR Work Phone: [facility] 09-09-2022 14:30-0500 Systolic blood pressure 126 mm[Hg] Lucina Wang APRN.TYPE PHOTOGRAPHY SUPERVISOR Work Phone: [facility] 08-25-2022 13:02-0500 Diastolic blood pressure 87 mm[Hg] Cyn Berry PA-C Work Phone: [facility] 08-25-2022 13:02-0500 Heart rate 65 /min Cyn Berry PA-C Work Phone: [facility] 08-25-2022 13:02-0500 Systolic blood pressure 131 mm[Hg] Cyn Berry PA-C Work Phone: [facility] 08-25-2022 12:33-0500 Body temperature 97.7 [degF] Cyn Berry PA-C Work Phone: [facility] 08-25-2022 12:33-0500 Body weight 95.71 kg Cyn Berry PA-C Work Phone: [facility] 08-25-2022 12:33-0500 Respiratory rate 18 /min Cyn Berry PA-C Work Phone: [facility] 08-07-2022 12:01-0500 Body temperature 97.59 [degF] Bev Banks APRN.TYPE PHOTOGRAPHY SUPERVISOR Work Phone: [facility] 08-07-2022 12:01-0500 Body weight 94.8 kg Bev Praisler-Wood RESOURCE SPECIALIST.TYPE PHOTOGRAPHY SUPERVISOR Work Phone: [facility] 08-07-2022 12:01-0500 Diastolic blood pressure 84 mm[Hg] Bev Praisler-Wood RESOURCE SPECIALIST.TYPE PHOTOGRAPHY SUPERVISOR Work Phone: [facility] 08-07-2022 12:01-0500 Heart rate 70 /min Bev Praisler-Wood RESOURCE SPECIALIST.TYPE PHOTOGRAPHY SUPERVISOR Work Phone: [facility] 08-07-2022 12:01-0500 Respiratory rate 18 /min Bev Praisler-Wood RESOURCE SPECIALIST.TYPE PHOTOGRAPHY SUPERVISOR Work Phone: [facility] 08-07-2022 12:01-0500 SaO2% (BldA) [Mass fraction] 99 % Bev Praisler-Wood RESOURCE SPECIALIST.TYPE PHOTOGRAPHY SUPERVISOR Work Phone: [facility] 08-07-2022 12:01-0500 Systolic blood pressure 130 mm[Hg] Bev Praisler-Wood RESOURCE SPECIALIST.TYPE PHOTOGRAPHY SUPERVISOR Work Phone: [facility] 08-05-2022 09:03-0500 Body weight 94.98 kg Lucina Wang RESOURCE SPECIALIST.TYPE PHOTOGRAPHY SUPERVISOR Work Phone: [facility] 08-05-2022 09:03-0500 Diastolic blood pressure 82 mm[Hg] Lucina Mckinneyie RESOURCE SPECIALIST.TYPE PHOTOGRAPHY SUPERVISOR Work Phone: [facility] 08-05-2022 09:03-0500 Heart rate 85 /min Lucina Hamiltonhrie RESOURCE SPECIALIST.TYPE PHOTOGRAPHY SUPERVISOR Work Phone: [facility] 08-05-2022 09:03-0500 SaO2% (BldA) [Mass fraction] 98 % Lucina Wang RESOURCE SPECIALIST.TYPE PHOTOGRAPHY SUPERVISOR Work Phone: [facility] 08-05-2022 09:03-0500 Systolic blood pressure 124 mm[Hg] Lucina Hamiltonhrie RESOURCE SPECIALIST.TYPE PHOTOGRAPHY SUPERVISOR Work Phone: [facility] 07-27-2022 14:07-0400 Body height 168 cm Cyn Berry PA-C Work Phone: [facility] 07-27-2022 14:07-0400 Body temperature 98.1 [degF] Cyn Berry PA-C Work Phone: [facility] 07-27-2022 14:07-0400 Body weight 94.8 kg Cyn Berry PA-C Work Phone: [facility] 07-27-2022 14:07-0400 Diastolic blood pressure 90 mm[Hg] Cyn Berry PA-C Work Phone: [facility] 07-27-2022 14:07-0400 Heart rate 72 /min Cyn Berry PA-C Work Phone: [facility] 07-27-2022 14:07-0400 Respiratory rate 18 /min Cyn Berry PA-C Work Phone: [facility] 07-27-2022 14:07-0400 Systolic blood pressure 130 mm[Hg] Cyn Berry PA-C Work Phone: [facility] 04-20-2022 16:00-0400 Body height 167.6 cm Lucina Wang APRN.TYPE PHOTOGRAPHY SUPERVISOR Work Phone: [facility] 04-20-2022 16:00-0400 Body weight 95.71 kg Lucina Wang APRN.TYPE PHOTOGRAPHY SUPERVISOR Work Phone: [facility] 04-20-2022 16:00-0400 Diastolic blood pressure 98 mm[Hg] Lucina Wang APRN.TYPE PHOTOGRAPHY SUPERVISOR Work Phone: [facility] 04-20-2022 16:00-0400 Systolic blood pressure 140 mm[Hg] Lucina Wang APRN.TYPE PHOTOGRAPHY SUPERVISOR Work Phone: [facility] Encounters Encounter Date Encounter Type Care Provider Facility Start: 05-30-2025 ambulatory Axel Castaneda Facility :[facility] Start: 04-15-2025 End: 04-15-2025 Patient encounter procedure Axel Castaneda DO -[facility] Work Phone: Start: 04-15-2025 End: 04-15-[address] Trent Velazquez DO Work Phone: -[facility] Start: 01-07-2025 End: 01-07-2025 Patient encounter procedure Rojelio BAI [facility] Work Phone: Start: 01-07-2025 End: 01-07-2025 ambulatory Rojelio BAI Facility:[facility] Start: 12-06-2024 ambulatory Health Risk Assessment Facility:[facility] Start: 08-02-2024 End: 08-02-2024 ambulatory Trent Labor Facility:[facility] Start: 07-19-2024 ambulatory Trent Labor Facility:[facility] Start: 06-14-2024 End: 06-14-2024 ambulatory Eliz O'Honorio PT [facility] Comment on above: Calcific tendinitis of right shoulder (Primary Dx) Start: 06-01-2024 End: 06-01-2024 ambulatory Farrah Kashuba PATIENT CARE ASSISTANT Work Phone: [facility] Comment on above: Calcific tendinitis of right shoulder (Primary Dx) Start: 05-22-2024 End: 05-22-2024 ambulatory Eliz O'Honorio PT [facility] Comment on above: Calcific tendinitis of right shoulder (Primary Dx) Start: 05-15-2024 End: 05-15-2024 ambulatory Eliz O'Honorio PT [facility] Comment on above: Calcific tendinitis of right shoulder (Primary Dx) Start: 05-08-2024 End: 05-08-2024 ambulatory Farrah Kashuba PATIENT CARE ASSISTANT Work Phone: [facility] Comment on above: Calcific tendinitis of right shoulder (Primary Dx) Start: 05-01-2024 End: 05-01-2024 ambulatory Farrah Kashuba PATIENT CARE ASSISTANT Work Phone: [facility] Comment on above: Calcific tendinitis of right shoulder (Primary Dx) Start: 05-01-2024 ambulatory TRENT T LABOR Facility :[facility] Start: 04-10-2024 End: 04-10-2024 ambulatory Farrah Whiting PATIENT CARE ASSISTANT Work Phone: [facility] Comment on above: Calcific tendinitis of right shoulder (Primary Dx) Start: 04-04-2024 End: 04-05-2024 ambulatory Siobhan Patel PT, DPT [facility] Comment on above: Calcific tendinitis of right shoulder (Primary Dx) Start: 03-27-2024 End: 03-27-2024 ambulatory Eliz Sifuentes PT [facility] Comment on above: Calcific tendinitis of right shoulder (Primary Dx) Start: 03-09-2024 End: 03-09-2024 ambulatory TRENT [employer] LABOR Facility:[facility] Start: 03-09-2024 End: 03-09-2024 Patient encounter procedure Chey Plata DO Work Phone: Orthopaedics Comment on above: Calcific tendinitis of right shoulder (Primary Dx) Start: 02-28-2024 ambulatory Chey Plata DO Work Phone: Orthopaedics Comment on above: RX Start: 02-23-2024 End: 02-23-2024 ambulatory [facility] Facility:[facility] Start: 02-23-2024 End: 02-23-2024 Subsequent hospital visit by physician Main A21 7 Work Phone: Radiology Comment on above: Calcific tendonitis [M65.20] Start: 02-22-2024 Telephone encounter Chey echeverria DO Work Phone: Orthopaedics Comment on above: Medication Question Start: 02-22-2024 End: 02-22-2024 ambulatory [employer] LABOR Facility:[facility] Start: 02-22-2024 End: 02-22-2024 Patient encounter procedure Chey Plata DO Work Phone: Orthopaedics Comment on above: Calcific tendinitis of right shoulder (Primary Dx) Start: 02-08-2024 Telephone encounter [facility] Provider Ormauricio vazquez Comment on above: Appointment with Dr. Plata or Dr. Fregoso Appointment Start: 02-08-2024 End: 02-08-2024 Patient encounter procedure Benjamin Gagnon MD Work Phone: Orthopaedics Comment on above: Calcific tendonitis (Primary Dx) Start: 02-08-2024 End: 02-08-2024 ambulatory [facility] Facility:[facility] Start: 02-08-2024 End: 02-08-2024 Subsequent hospital visit by physician Xr [facility] Radiology Comment on above: Pain [R52] Start: 02-06-2024 Orders Only Benjamin marie MD Work Phone: [facility] Comment on above: Pain (Primary Dx) Start: 12-22-2023 End: 12-22-2023 Subsequent hospital visit by physician Xr [facility] Work Phone: Radiology Comment on above: Acute cough [R05.1] Start: 12-22-2023 End: 12-22-2023 ambulatory [facility] Facility:[facility] Start: 08-24-2023 End: 08-24-2023 Emergency department patient visit [facility] Work Phone: Start: 07-07-2023 End: 07-07-2023 ambulatory [facility] Facility:[facility] Start: 05-25-2023 ambulatory Yang bravo MD Work Phone: Internal Medicine [facility] Start: 04-28-2023 End: 04-28-2023 Emergency department patient visit [facility] Work Phone: Start: 03-10-2023 Refill Yang bravo MD Work Phone: [facility] Comment on above: Refill Request Start: 02-17-2023 End: 02-17-2023 ambulatory [facility] Work Phone: Start: 02-17-2023 End: 02-17-2023 Patient encounter procedure [facility]Laboratory Start: 01-27-2023 End: 01-27-2023 Patient encounter procedure Dania Church APRN.CNP Work Phone: [facility] Comment on above: Parotitis, acute (Pr imary Dx) Start: 10-18-2022 ambulatory Eliane díaz MD Work Phone: [facility] General Rheumatology and Arthritis Comment on above: RX For Monthly Massa [place] Start: 09-09-2022 End: 09-09-2022 Patient encounter procedure Lucina Wang APRN.TYPE PHOTOGRAPHY SUPERVISOR Work Phone: OB/Gynecology Comment on above: IUD check up (Primar y Dx) Start: 08-25-2022 End: 08-25-2022 Patient encounter procedure Cyn Berry PA-C Work Phone: [facility] Comment on above: Mild episode of recu rrent major depressive disorder (HCC) (Primary Dx); Hypertension, essential; Encounter for immunization Start: 08-07-2022 ambulatory Cyn prince PA-C Work Phone: [facility] Comment on above: Shooting Pain In Hea d Start: 08-07-2022 End: 08-07-2022 Patient encounter procedure Bev Banks APRN.DEEPALI Work Phone: [facility] Comment on above: Neck pain on right s nisa (Primary Dx) Start: 08-05-2022 End: 08-05-2022 Patient encounter procedure Lucina Wang APRN.TYPE PHOTOGRAPHY SUPERVISOR Work Phone: OB/Gynecology Comment on above: Encounter for IUD in sertion (Primary Dx); Menorrhagia with irregular cycle; Dysmenorrhea Start: 07-28-2022 Telephone encounter Karmen Mcfadden RNcivil engineering teacher Comment on above: Request Outside [facility] Records Results Start: 07-27-2022 End: 07-27-2022 Patient encounter procedure Cyn Berry PA-C Work Phone: [facility] Comment on above: Well adult exam (Nadya rg Dx); Hypertension, essential; Dyslipidemia; Encounter for screening for diabetes mellitus; Mild episode of recurrent major depressive disorder (HCC); Inflammatory arthropathy; 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) Start: 07-27-2022 End: 07-27-2022 Patient encounter status Cyn Berry PA-C Work Phone: [facility] Start: 07-16-2022 Refill Britney Chong APRN.TYPE PHOTOGRAPHY SUPERVISOR Work Phone: [facility] Comment on above: Refill Request Start: 06-24-2022 End: 06-24-2022 Patient encounter procedure Britney Chong APRN.TYPE PHOTOGRAPHY SUPERVISOR Work Phone: [facility] [place] Comment on above: Hypertension, essent ial (Primary Dx) Start: 05-14-2022 Telephone encounter Lucina villanueva APRN.TYPE PHOTOGRAPHY SUPERVISOR Work Phone: OB/Gynecology Comment on above: Results; Orders; New Medication Start: 05-12-2022 End: 05-12-2022 Patient encounter procedure Marlene Melvin MD Work Phone: OB/Gynecology Comment on above: Excessive bleeding i n premenopausal period (Primary Dx) Start: 04-23-2022 Documentation procedure Mammog erika Coordinator [facility] Start: 04-23-2022 Letter encounter Mammography Coordinator [facility] Department Start: 04-22-2022 End: 04-22-2022 Subsequent hospital visit by physician Screen Mammo [facility] Comment on above: Encounter for screen ing mammogram for breast cancer [Z12.31] Start: 04-20-2022 End: 04-20-2022 Patient encounter procedure Lucina Wang APRN.TYPE PHOTOGRAPHY SUPERVISOR Work Phone: OB/Gynecology Comment on above: Encounter for gyneco logical examination with abnormal finding (Primary Dx); Menorrhagia with irregular cycle; Vaginal yeast infection; Encounter for screening mammogram for breast cancer Start: 04-20-2022 End: 04-20-2022 Patient encounter status Lucina Wang APRN.TYPE PHOTOGRAPHY SUPERVISOR Work Phone: OB/Gynecology Start: 03-03-2022 ambulatory Yang bravo MD Work Phone: [facility] Comment on above: Possible RX Start: 06-12-2021 Patient encounter status Inna Nieves MD Work Phone: [facility] Work Phone: Start: 11-22-2020 End: 11-22-2020 Subsequent hospital visit by physician [facility]rol [facility] Work Phone: Radiology Comment on above: Acute right-sided lo w back pain with right-sided sciatica [M54.41] Procedures Date Procedure Procedure Detail Performing Clinician Start: 03-09-2024 Arthrocentesis aspir &/inj major jt/bursa w/us Chey D Plata DO Work Phone: Start: 03-09-2024 Tenotomy shoulder ar ea 1 tendon Chey D Plata DO Work Phone: Start: 03-09-2024 Us guidance needle placement img s&i Chey D Plata DO Work Phone: Start: 03-09-2024 Arthrocentesis aspir &/inj major jt/bursa w/us Chey D Plata DO Work Phone: Start: 02-23-2024 Us lmtd joint/oth no nvasc xtr strux r-t w/img Benjamin Gagnon MD Work Phone: Start: 12-22-2023 Radiologic exam ches t 2 views Janneth Rachel APRN.CNP Work Phone: Start: 08-24-2023 Computed tomography of abdomen and pelvis with intravenous contrast Start: 02-17-2023 Lipid 1996 panel - S thi or Plasma Benjamin Gagnon MD Work Phone: Start: 08-25-2022 INFLUENZA VACCINE QUADRIVALENT 6 MO - 64 YRS IM Cyn Berry PA-C Work Phone: Start: 08-25-2022 PFIZER-BIONTECH COVI D-19 BIVALENT BOOSTER VACCINE, AGE 12+ YR Cyn Berry PA-C Work Phone: Start: 08-05-2022 Urine test visual color cmprsn florencio Wang APRN.CNP Work Phone: Start: 04-22-2022 End: 04-22-2022 Screening mammography bi 2-view breast inc cad Bulk Order Provider Start: 06-10-2021 Adult depression scr eening assessment Yang Nieves MD Work Phone: Start: 11-22-2020 Radex spine lumbosac ral 2/3 views Sita Morillo PA-C Work Phone: Start: 10-15-2020 Mammography Yang tong MD Work Phone: Start: 06-07-2014 Colonoscopy Yang tong MD Work Phone: Plan of Treatment Date Care Activity Detail Author Start: 02-18-2028 Lipid panel Lipid Screening [facility] Start: 02-18-2028 LIPID SCREEN LIPID SCREEN [facility] Start: 07-27-2027 LIPID SCREEN LIPID SCREEN [facility] Start: 07-07-2026 Diabetes Screening Diabetes Screenin g [facility] Start: 06-12-2026 LIPID SCREEN LIPID SCREEN [facility] Start: 03-13-2026 Urine microalbumin profile [facility] Start: 02-17-2026 DIABETES SCREEN DIABETES SCREEN [facility] Start: 07-27-2025 DIABETES SCREEN DIABETES SCREEN [facility] Start: 12-21-2024 BP Controlled (<130/80) BP Controlle d (<130/80) [facility] Start: 08-16-2024 HPV TESTING HPV TESTING [facility] Start: 08-16-2024 PAP TESTING PAP TESTING [facility] Start: 08-16-2024 Screening for malign ant neoplasm of cervix [facility] Start: 06-22-2024 End: 06-22-2024 ambulatory 06/22/2024 2:00 PM EDT OT/PT/Speech Visit [facility] [address] [place] [address] Vineet'Eliz Olmedo, PT Calcific tendinitis of right shoulder [M75.31] [facility] Comment on above: Calcific tendinitis of right shoulder [M75.31] Start: 06-14-2024 End: 06-14-2024 ambulatory 06/14/2024 9:30 AM EDT OT/PT/Speech Visit [facility] [address] [place] [address] Eliz Sifuentes, PT Calcific tendinitis of right shoulder [M75.31] [facility] Comment on above: Calcific tendinitis of right shoulder [M75.31] Start: 06-12-2024 DIABETES SCREEN DIABETES SCREEN [facility] Start: 06-08-2024 End: 06-08-2024 ambulatory 06/08/2024 2:00 PM EDT OT/PT/Speech Visit [facility] [address] [place] [address] Farrah Whiting, PATIENT CARE ASSISTANT [address] [place] [address] Calcific tendinitis of right shoulder [M75.31] [facility] Comment on above: Calcific tendinitis of right shoulder [M75.31] Start: 06-07-2024 Colonoscopy COLONOSCOPY [facility] Start: 06-07-2024 COLORECTAL CANCER SCREENING COLORECTAL CANCER SCREENING [facility] Start: 06-07-2024 Screening for malign ant neoplasm of colon [facility] Start: 06-01-2024 End: 06-01-2024 ambulatory 06/01/2024 9:30 AM EDT OT/PT/Speech Visit [facility] [address] [place] [address] Farrah Whiting, PATIENT CARE ASSISTANT [address] [place] [address] Calcific tendinitis of right shoulder [M75.31] [facility] Comment on above: Calcific tendinitis of right shoulder [M75.31] Start: 05-29-2024 End: 05-29-2024 ambulatory 05/29/2024 2:15 PM EDT [facility] [address] [facility] [place] [address] Chey Plata DO [address] [facility] [place] [address] 6wks virtual visit (missed her original appoitnment on 05/01/24) Orthopaedics Comment on above: 6wks virtual visit ( missed her original appoitnment on 05/01/24) Start: 05-27-2024 Covid-19 Vaccine ( season) Covid-19 Vaccine ( season) [facility] Start: 05-27-2024 Covid-19 Vaccine ( season) Covid-19 Vaccine () [facility] Start: 05-27-2024 Influenza vaccination [facility] Start: 05-22-2024 End: 05-22-2024 ambulatory 05/22/2024 3:00 PM EDT OT/PT/Speech Visit [facility] [address] [place] [address] Eliz Sifuentes, PT M75.31 (ICD-10-CM) - Calcific tendinitis of right shoulder [facility] Comment on above: M75.31 (ICD-10-CM) - Calcific tendinitis of right shoulder Start: 05-15-2024 End: 05-15-2024 ambulatory 05/15/2024 3:00 PM EDT OT/PT/Speech Visit [facility] [address] [place] [address] Eliz Sifuentes, PT M75.31 (ICD-10-CM) - Calcific tendinitis of right shoulder [facility] Comment on above: M75.31 (ICD-10-CM) - Calcific tendinitis of right shoulder Start: 05-08-2024 End: 05-08-2024 ambulatory 05/08/2024 3:30 PM EDT OT/PT/Speech Visit [facility] [address] [place] [address] Farrah Whiting, PATIENT CARE ASSISTANT [address] [place] [address] M75.31 (ICD-10-CM) - Calcific tendinitis of right shoulder [facility] Comment on above: M75.31 (ICD-10-CM) - Calcific tendinitis of right shoulder Start: 05-06-2024 Dental X-Ray: FMX/Clancy Dental X-Ray: FMX/Clancy [facility] Start: 05-01-2024 End: 05-01-2024 ambulatory 05/01/2024 3:30 PM EDT OT/PT/Speech Visit [facility] [address] [place] [address] Farrah Whiting, PATIENT CARE ASSISTANT [address] [place] [address] M75.31 (ICD-10-CM) - Calcific tendinitis of right shoulder [facility] Comment on above: M75.31 (ICD-10-CM) - Calcific tendinitis of right shoulder Start: 05-01-2024 End: 05-01-2024 ambulatory 05/01/2024 7:30 AM EDT [facility] [address] [place] [address] Chey Plata, DO [address] [place] [address] 6wks virtual visit Orthopaedics Comment on above: 6wks virtual visit Start: 04-24-2024 End: 04-24-2024 ambulatory 04/24/2024 2:15 PM EDT OT/PT/Speech Visit [facility] [address] [place] [address] Eliz Sifuentes, PT M75.31 (ICD-10-CM) - Calcific tendinitis of right shoulder [facility] Comment on above: M75.31 (ICD-10-CM) - Calcific tendinitis of right shoulder Start: 04-17-2024 End: 04-17-2024 ambulatory 04/17/2024 1:30 PM EDT OT/PT/Speech Visit [facility] [address] [place] [address] Eliz Sifuentes, PT M75.31 (ICD-10-CM) - Calcific tendinitis of right shoulder [facility] Comment on above: M75.31 (ICD-10-CM) - Calcific tendinitis of right shoulder Start: 04-10-2024 End: 04-10-2024 ambulatory 04/10/2024 2:45 PM EDT OT/PT/Speech Visit [facility] [address] [place] [address] Farrah Whiting, PATIENT CARE ASSISTANT [address] [place] [address] M75.31 (ICD-10-CM) - Calcific tendinitis of right shoulder [facility] Comment on above: M75.31 (ICD-10-CM) - Calcific tendinitis of right shoulder Start: 04-04-2024 End: 04-04-2024 ambulatory 04/04/2024 3:45 PM EDT OT/PT/Speech Visit [facility] [address] [place] [address] Siobhan Patel, PT, DPT M75.31 (ICD-10-CM) - Calcific tendinitis of right shoulder [facility] Comment on above: M75.31 (ICD-10-CM) - Calcific tendinitis of right shoulder Start: 03-27-2024 End: 03-27-2024 ambulatory 03/27/2024 3:45 PM EDT OT/PT/Speech Visit [facility] [address] [place] [address] Eliz Sifuentes, PT Right shoulder =- [facility] Comment on above: Right shoulder =- [facility] Start: 03-09-2024 End: 03-09-2024 Patient encounter procedure 03/09/2024 9:15 AM EDT Office Visit Orthopaedics [address] [place] [address] Chey Plata, DO [address] [place] [address] TENJET ONLY - RIGHT SHOULDER Orthopaedics Comment on above: TENJET ONLY - RIGHT SHOULDER Start: 02-23-2024 End: 02-23-2024 Patient encounter procedure 02/23/2024 2:25 PM EDT Appointment Radiology [address] [address] US SHOULDER RT; EVAL LOCATION+SIZE OF CALCIFIC DEPOSITS NOTED ON XR Radiology Comment on above: US SHOULDER RT; EVAL LOCATION+SIZE OF CALCIFIC DEPOSITS NOTED ON XR Start: 02-22-2024 End: 02-22-2024 Patient encounter procedure 02/22/2024 10:45 AM EDT Office Visit Orthopaedics [address] [place] [address] Chey Plata, DO [address] [place] [address] discuss treatment options, right shoulder. Referred by Dr. Mekhi Gagnon Orthopaedics Comment on above: discuss treatment op tions, right shoulder. Referred by Dr. Mekhi Gagnon Start: 02-13-2024 End: 02-13-2024 Patient encounter procedure 02/13/2024 9:10 AM EDT Appointment Mammogram [address] [place] [address] Mammogram Start: 02-08-2024 End: 02-08-2024 Patient encounter procedure Radiology Comment on above: rt shoulder XR rt shoulder pain (ca n hardly move it) Start: 01-28-2024 ANNUAL PCP TEAM SPRAY CEMENTER CONNER DISEASE VISIT ANNUAL PCP TEAM CHRONIC DISEASE VISIT [facility] Start: 01-28-2024 BP CONTROLLED (<130/80) BP CONTROLLE D (<130/80) [facility] Start: 09-26-2023 Behavioral Health Screening Behavioral Health Screening [facility] Start: 09-09-2023 BP CONTROLLED (<130/80) BP CONTROLLE D (<130/80) [facility] Start: 08-25-2023 ANNUAL PCP TEAM SPRAY CEMENTER CONNER DISEASE VISIT ANNUAL PCP TEAM CHRONIC DISEASE VISIT [facility] Start: 08-24-2023 [facility] Start: 07-27-2023 ANNUAL PCP TEAM SPRAY CEMENTER CONNER DISEASE VISIT ANNUAL PCP TEAM CHRONIC DISEASE VISIT [facility] Start: 05-27-2023 Covid-19 Vaccine ( season) Covid-19 Vaccine () [facility] Start: 05-27-2023 Influenza vaccination INFLUENZA (#1) [facility] Start: 04-22-2023 Mammography MAMMOGRAM [facility] Start: 04-22-2023 Screening for malign ant neoplasm of breast Mammogram Screening [facility] Start: 09-26-2022 DEPRESSION ASSESSMENT DEPRESSION ASS ESSMENT [facility] Start: 07-27-2022 End: 09-26-2022 Comprehensive metabolic 2000 panel - Serum or Plasma [facility] Work Phone: Comment on above: Expected: 07/27/2022 , Expires: 09/26/2022 Start: 07-27-2022 End: 09-26-2022 Hemoglobin A1c in Blood [facility] Work Phone: Comment on above: Expected: 07/27/2022 , Expires: 09/26/2022 Start: 07-27-2022 End: 09-26-2022 LIPID PANEL, NONFASTING [facility] Work Phone: Comment on above: Expected: 07/27/2022 , Expires: 09/26/2022 Start: 07-27-2022 End: 09-26-2022 Urinalysis complete panel - Urine [facility] Work Phone: Comment on above: Expected: 07/27/2022 , Expires: 09/26/2022 Start: 06-10-2022 Adult depression screening assessment DEPRESSION SCREENING [facility] Start: 05-27-2022 Influenza vaccination INFLUENZA (#1) [facility] Start: 04-20-2022 End: 06-20-2022 Thyrotropin [Units/volume] in Serum or Plasma [facility] Work Phone: Comment on above: Expected: 04/20/2022 , Expires: 06/20/2022 Start: 10-15-2021 Mammography MAMMOGRAM [facility] Start: 09-26-2021 DEPRESSION ASSESSMENT DEPRESSION ASS ESSMENT [facility] Start: 04-04-2021 COVID-19 VACCINE (3 - Booster for Moderna series) COVID-19 VACCINE (3 - Booster for Moderna series) [facility] Start: 12-31-2020 COVID-19 VACCINE (3 - Booster for Moderna series) COVID-19 VACCINE (3 - Booster for Moderna series) [facility] Start: 2020 COLOGUARD (FIT-DNA) COLOGUARD (FIT-D NA) [facility] Start: [address] COLONOGRAPHY [facility] Start: 2020 FECAL OCCULT BLOOD FECAL OCCULT BLOO D [facility] Start: 2020 Screening for malign ant neoplasm of colon [facility] Start: 2020 SIGMOIDOSCOPY SIGMOIDOSCOPY [facility] Start: 11-16-2019 HEPATITIS B (2 of 3 - 3-dose series) [facility] Start: 11-16-2019 Hepatitis B Vaccine (2 of 3 - 19+ 3-dose series) Hepatitis B Vaccine (2 of 3 - 19+ 3-dose series) [facility] Start: 1993 Anxiety Screening Anxiety Screening [facility] Start: 1993 BP CONTROLLED (<130/80) BP CONTROLLE D (<130/80) [facility] Start: 1993 [facility] Dental Oral Exam Dental Oral Exam [facility] Start: 1975 Dental Perio Probing Dental Perio Pr ing [facility] Start: 1975 Dental Prophylaxis Dental Prophylaxi s [facility] Start: 1975 Dental X-Ray: Bitewings Dental X-Ray : Bitewings [facility] Start: 1975 Periodontal Maintenance Periodontal Maintenance [facility] C reactive protein [Mass/volume] in Serum or Plasma [facility] CBC W Auto Different ial panel - Blood [facility] Celiac disease screen [facility] Clostridioides diffi cile DNA [Presence] in Unspecified specimen by NYDIA with probe detection [facility] Comprehensive metabo lic 2000 panel - Serum or Plasma [facility] Elastase.pancreatic [Presence] in Stool [facility] Endometrial bx w/wo endocervix bx w/o dilat spx ENDOMETRIAL BIOPSY Procedures Routine Excessive bleeding in premenopausal period Ordered: 05/14/[address] [facility] Work Phone: Comment on above: Ordered: 05/14/2022 Erythrocyte sedimentation rate [facility] Fat [Presence] in Stool [facility] Ferritin [Mass/volum e] in Serum or Plasma [facility] Gastrin [Mass/volume ] in Serum or Plasma [facility] Immunoglobulin measurement [facility] In-vitro immunologic test [facility] Insertion intrauteri ne device iud INSERT INTRAUTERINE DEVICE Procedures Routine Excessive bleeding in premenopausal period Ordered: 05/14/[address] [facility] Work Phone: Comment on above: Ordered: 05/14/2022 Lactate dehydrogenas e measurement [facility] Lactoferrin [Presenc e] in Stool by Immunoassay [facility] Magnesium measurement [facility] End: 06-23-2024 MARCELA SCREENING MARCELA SCREENING Radiology Routine Encounter for screening mammogram for breast cancer 1 Occurrences starting 05/25/2023 until 06/23/[address] [facility] Work Phone: Comment on above: 1 Occurrences starti ng 05/25/2023 until 06/23/2024 Nucleic acid assay [facility] Patient Education [facility] Work Phone: Patient referral [facility] Work Phone: PELVIC US I PELVIC US [facility] An c Imaging Routine Menorrhagia with irregular cycle Ordered: 04/20/[address] [facility] Work Phone: Comment on above: Ordered: 04/20/2022 Protein measurement [facility] End: 05-20-2023 Screening mammography bi 2-view breast inc cad MARCELA SCREENING Radiology Routine Encounter for screening mammogram for breast cancer 1 Occurrences starting 04/20/2022 until 05/20/[address] [facility] Work Phone: Comment on above: 1 Occurrences starti ng 04/20/2022 until 05/20/2023 Screening mammograph y bi 2-view breast inc cad MARCELA SCREENING Radiology Routine Encounter for screening mammogram for breast cancer 04/22/2022 3:06 PM EDT [facility] Work Phone: Serum immunofixation [facility] Serum inorganic phosphate measurement [facility] SURGICAL PATHOLOGY SURGICAL PATH OLOGY Lab Routine Encounter for IUD insertion Ordered: 08/05/[address] [facility] Work Phone: Comment on above: Ordered: 08/05/2022 T4 free measurement [facility] Thyroid stimulating hormone measurement [facility] Triiodothyronine, fr ee measurement [facility] End: 03-09-2025 US Shoulder - right US SHOULDER RIGHT Radiology SHLOMO Calcific tendonitis 1 Occurrences starting 02/08/2024 until 03/09/[address] [facility] Work Phone: Comment on above: 1 Occurrences starti ng 02/08/2024 until 03/09/2025 Vitamin B12 measurement [facility] End: 03-07-2025 XR Shoulder - right 3 Views XR SHOULDER GENERAL 3V OR MORE AP/TRUE AP/OTHER RIGHT Radiology Routine Pain 1 Occurrences starting 02/06/2024 until 03/07/[address] [facility] Work Phone: Comment on above: 1 Occurrences starti ng 02/06/2024 until 03/07/2025 XR Shoulder - right 3 Views XR SHOULDER GENERAL 3V OR MORE AP/TRUE AP/OTHER RIGHT Radiology Routine Pain 02/08/2024 10:03 AM EDT [facility] Work Phone: [facility] Immunizations Immunization Date Immunization Notes Care Provider Lorie vergara 09-05-2024 influenza, seasonal, injectable, preservative free Dr. Trent Velazquez DO Work Phone: [facility] 08-25-2022 COVID-19 booster vaccine, age 12+ yr, bivalent (PFIZER-BIONTOMGPOP) Cyn Berry PA-C Work Phone: [facility] 08-25-2022 influenza, injectabl e, quadrivalent, contains preservative Cyn Berry PA-C Work Phone: [facility] 08-25-2022 influenza virus vaccine, unspecified formulation Benjamin Gagnon MD Work Phone: [facility] 06-12-2021 influenza, injectabl e, quadrivalent, contains preservative Yang Nieves MD Work Phone: [facility] 11-05-2020 Covid (Moderna) Dr. Trent isaacs DO Work Phone: [facility] 10-08-2020 Covid (Moderna) Dr. Trent isaacs DO Work Phone: [facility] 11-02-2019 influenza, injectabl e, quadrivalent, contains preservative Yang Nieves MD Work Phone: [facility] 10-19-2019 hepatitis A vaccine, adult dosage Yang Nieves MD Work Phone: [facility] Work Phone: 10-19-2019 hepatitis B vaccine, adult dosage Yang Nieves MD Work Phone: [facility] Work Phone: 10-19-2019 measles, mumps and rubella virus vaccine Yang Nieves MD Work Phone: [facility] Work Phone: 10-19-2019 hepatitis B vaccine, unspecified formulation Marlene Melvin MD Work Phone: [facility] 07-29-2018 influenza, injectabl e, quadrivalent, contains preservative Yang Nieves MD Work Phone: [facility] Work Phone: 07-14-2016 influenza, injectabl e, quadrivalent, contains preservative Yang Nieves MD Work Phone: [facility] Work Phone: 03-13-2016 tetanus toxoid, redu ekaterina diphtheria toxoid, and acellular pertussis vaccine, adsorbed Yang Nieves MD Work Phone: [facility] Work Phone: 06-18-2015 influenza, injectabl e, quadrivalent, preservative free [facility] 06-18-2015 influenza, seasonal, injectable [facility] 05-07-1991 diphtheria and tetan us toxoids, adsorbed for pediatric use Yang Nieves MD Work Phone: [facility] 11-27-1979 tuberculin skin test ; purified protein derivative solution, intradermal Eliz Manley'Honorio PT [facility] 11-20-1979 diphtheria, tetanus toxoids and acellular pertussis vaccine Yang Nieves MD Work Phone: [facility] 11-20-1979 trivalent poliovirus vaccine, live, oral Yang Nieves MD Work Phone: [facility] 06-19-1976 measles, mumps and rubella virus vaccine Yang Nieves MD Work Phone: [facility] 1975 diphtheria, tetanus toxoids and acellular pertussis vaccine Yang Nieves MD Work Phone: [facility] 1975 trivalent poliovirus vaccine, live, oral Yang Nieves MD Work Phone: [facility] 1975 diphtheria, tetanus toxoids and acellular pertussis vaccine Yang Nieves MD Work Phone: [facility] 1975 trivalent poliovirus vaccine, live, oral Yang Nieves MD Work Phone: [facility] 1975 diphtheria, tetanus toxoids and acellular pertussis vaccine Yang Nieves MD Work Phone: [facility] 1975 trivalent poliovirus vaccine, live, oral Yang Nieves MD Work Phone: [facility] Payers Date Payer Category Payer Unknown [id number] 2024 Self-pay 2023 Unknown [id number] 2021 Unknown 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 2015 Unknown [id number] Unknown [id number] Unknown [id number] Unknown [id number] Unknown [id number] Unknown [id number] Unknown [id number] Social History Date Type Detail Facility Start: 11-09-2017 End: 08-24-2023 Tobacco smoking status NHIS Never smoked tobacco [facility] Start: 09-01-2020 End: 09-07-2021 Alcohol intake Current drinker of alcohol (finding) [facility] Start: 08-31-2020 End: 09-07-2021 Alcohol intake [facility] Start: 06-10-2021 History SDOH Alcohol Frequency 4 [facility] Start: 06-10-2021 History SDOH Alcohol Std Drinks 1 [facility] Start: 06-10-2021 History SDOH Social Connections Get Together 5 [facility] Start: 06-10-2021 History SDOH Social Connections Living 3 [facility] Start: 06-10-2021 History SDOH Stress 2 [place] Start: 06-10-2021 Education 12 [facility] Start: 1975 Sex Assigned At Not on file [facility] Start: 11-09-2017 End: 06-24-2022 Tobacco use and exposure Smokeless tobacco non-user [facility] Work Phone: Start: 10-23-2020 End: 08-25-2022 Exposure to SARS-CoV-2 (event) Not sure [facility] Start: 07-27-2022 Alcohol [facility] Start: 07-17-2022 End: 07-27-2022 Exposure to SARS-CoV-2 (event) Yes [facility] Start: 04-14-2017 End: 08-24-2023 Tobacco smoking status NHIS Unknown if ever smoked [facility] Start: 1975 Sex Assigned At Female [facility] Start: 08-31-2020 End: 06-10-2021 Social connection and isolation panel [facility] Active Member of [facility] bs or Organizations Not on file [facility] Are you now , , , , never or living with a partner? [facility] How often to you hav e a drink containing alcohol? 2-3 time sa week [facility] How many standard drinks containing alcohol do you have on a typical day? 1 or 2 [facility] How often do you hav e 6 or more drinks on 1 occasion? Never [facility] Do you feel stress - tense, restless, nervous, or anxious, or unable to sleep at night because your mind is troubled all the time - these days [OSQ] Only a little [facility] (I/We) worried wheth er (my/our) food would run out before (I/we) got money to buy more. Never true [facility] In the past 12 month s, was there a time when you were not able to pay the mortgage or rent on time? No [facility] How often to you hav e a drink containing alcohol? 2-4 times a month [facility] NEGATED: Highlighted row [facility] Goals Date Patient Goal Desired Activity /State Personal health goal Mental Status Date Assessment Result Facility 04-28-2023 Cognitive function Voice/Name [facility] Work Phone: Clinical Notes 11-22-2020 to 01-07-2025 Note Date & Type Note Facility 01-07-2025 Evaluation note Diagnosis Onset Date Resolution Allergic dermatitis acute January 07, 2025 6:54am History of palpitations acute A pril 2024 6:54am Bloating acute April 15 8:32am Diarrhea acute April 15 8:32am [facility] Work Phone: 1(279) 700-819809-19-2024 History of Present illness Narrative* Eliz Sifuentes, PT - 06/14/2024 10:01 AM EDT Program_ID:[id number] Access Code: [email or web address] URL: [email or web address] Date: 06-14-2024 Prepared By: Eliz Sifuentes Program Notes Exercises - cc MSI UE Lower Trapezius Facing Wall - 1 x daily - 7 x weekly - 3-4 sets - 10 reps - Shoulder Scaption Wall Slide with Towel - 1 x daily - 7 x weekly - 2 sets - 10 reps - Standing Shoulder Extension with Dowel - 1 x daily - 7 x weekly - 2-3 sets - 15 reps - Standing Shoulder External Rotation with Resistance - 1 x daily - 7 x weekly - 4 sets - 12 reps - Standing Bilateral Shoulder Internal Rotation AAROM with Dowel - 1 x daily - 7 x weekly - 3-4 sets - 15 reps * Eliz Sifuentes, PT - 06/14/2024 9:27 AM EDT Episode Visit Count: 9 Therapist That Will Accept/Oversee The Plan Of Care: Eliz Sifuentes Start of Care Date: 03/27/24 Onset Date: 03/09/24 Plan of Care Certification Date: 05/15/24 Next Certification Due Date: 06/26/24 REHABILITATION AND SPORTS THERAPY PHYSICAL THERAPY DISCONTINUANCE OF CARE PLAN OF CARE UPDATE: Assessment: Mendoza Johnson is discontinued from Physical Therapy services due to goal achievement andmaximal benefit.. Patient was seen for 9 visits from Start of Care Date: 03/27/24 to 06/14/2024 and treatment included: Therapeutic exercise and Self-fci management. Goals for Episode of Care: created on 03/27/24 through 05/22/24 Goals updated on 05/15/2024 through 06/26/24 Goals updated on 06/14/2024. De Young in home exercise program. -- MET Patient will decrease pain rating by 2 points to meet minimal clinical important difference for numeric pain rating scale. -- MET Patient will increase active ROM of right shoulder FE to 160 degrees or greater pain free per pt. report to allow pt to to improve performance of ADLs. -- MET Patient will increase flexibility of right UT and levator scapulae to WNL to improve ability to maintain proper posture and decrease pain. -- PARTIALLY MET, only R UT limited. Perform reaching behind the back and behind the head with decreased report of symptoms/pain in 8 weeks. -- MET Patient Goals: restore AROM of R shoulder without limitations due to pain -- PARTIALLY MET, continues to have trouble with reaching in the back seat or out to the side. SUBJECTIVE: pt. reports 75%-85% improvement overall. Continues to have quick pain that does not linger with reaching into the back seat.. Pain: Pain Pain Level: 0 Pain Location: Shoulder - Right Post Treatment Pain Post Treatment Pain Location: Shoulder - Right PROMIS Scales 06/14/2024 05/08/2024 05/01/2024 Higher is Better Phys Func - Score 53 (within normal limits) 58 (within normal limits) Phys Func - Percentile 62 79 Self-Eff Symptom - Score 65 (High) 49 (Average) Self-Eff Symptom - Percentile 93 46 T-scores: mean of general population = 50. 5 points is clinically meaningfully difference Percentiles provide an indication of how the patient's score ranks in relation to the general population. Higher percentile rankings indicate better function/quality of life. 50th percentile is the average of the general population and indicates half of respondents had a worse score. OBJECTIVE MEASURES WITH LEVEL OF FUNCTION: Cervical Spine ROM Cervical Side-Bend Right AROM: Normal Cervical Side-Bend Left AROM: Moderate limitation, Produces UE AROM R Shoulder Flex: 170 Degrees R Shoulder ABduction: 155 Degrees R Shoulder Internal Rotation (Functional): C5 R Shoulder External Rotation (Functional): R PSIS L Shoulder Flex: 180 Degrees L Shoulder ABduction: 180 Degrees L Shoulder Internal Rotation (Functional): L1 L Shoulder External Rotation (Functional): T4 UE Flexibility R Upper Trapezius Flexibilty Comments: moderate limitation L Upper Trapezius Flexibility Comments: WNL R Levator Scapulae Flexibilty Comments: WNL L Levator Scapulae Flexibility Comments: WNL TREATMENT: Therapeutic Exercise: 1: UE magnum erg level 2, 3 min fwd and 3 min reverse, subjective collected 1:1 throughout, seat 10 2: UT stretch 1x30 sec each side 3: levator scapulae stretch 1x30 sec each side 4: * Skilled Intervention: Patient was educated in proper exercise technique and purpose for exercises. Reviewed and educated patient on additions/changes for home exercise program as above (*). Skilled judgment was used in selection of appropriate interventions. Provided written instruction for home exercise program to facilitate proper performance and compliance. Correct performance of therapeutic exercises was facilitated with verbal, visual, and tactile cuing. Educated patient on rationale for performing exercises in regards to decreasing fatigue , increase ease of ADL, and ROM and function . Patient education as noted. Billing Therapeutic Exercise Treatment Minutes: 40 Skilled Treatment Time Minutes (timed and untimed codes): 40 Total Session Time (minutes): 40 Session Start Time : 926 Session Stop Time : 1006 Eliz Sifuentes PTW documented in this encounterOhio[facility]24 NoteHNO ID: [id number] Author: ELIZ SIFUENTES PT Service: ? Author Type: Physical Therapist Type: Progress Notes Filed: 06/14/2024 10:13 Note Text: Episode Visit Count: 9 Therapist That Will Accept/Oversee The Plan Of Care: Eliz Sifuentes Start of Care Date: 03/27/24 Onset Date: 03/09/24 Plan of Care Certification Date: 05/15/24 Next Certification Due Date: 06/26/24 REHABILITATION AND SPORTS THERAPY PHYSICAL THERAPY DISCONTINUANCE OF CARE PLAN OF CARE UPDATE: Assessment: Mendoza Johnson is discontinued from Physical Therapy services due to goal achievement and maximal benefit.. Patient was seen for 9 visits from Start of Care Date: 03/27/24 to 06/14/2024 and treatment included: Therapeutic exercise and Self-fci management. Goals for Episode of Care: created on 03/27/24 through 05/22/24 Goals updated on 05/15/2024 through 06/26/24 Goals updated on 06/14/2024. De Young in home exercise program. -- MET Patient will decrease pain rating by 2 points to meet minimal clinical important difference for numeric pain rating scale. -- MET Patient will increase active ROM of right shoulder FE to 160 degrees or greater pain free per pt. report to allow pt to to improve performance of ADLs. -- MET Patient will increase flexibility of right UT and levator scapulae to WNL to improve ability to maintain proper posture and decrease pain. -- PARTIALLY MET, only R UT limited. Perform reaching behind the back and behind the head with decreased report of symptoms/pain in 8 weeks. -- MET Patient Goals: restore AROM of R shoulder without limitations due to pain -- PARTIALLY MET, continues to have trouble with reaching in the back seat or out to the side. SUBJECTIVE: pt. reports 75%-85% improvement overall. Continues to have quick pain that does not linger with reaching into the back seat.. Pain: Pain Pain Level: 0 Pain Location: Shoulder - Right Post Treatment Pain Post Treatment Pain Location: Shoulder - Right PROMIS Scales 06/14/2024 05/08/2024 05/01/2024 Higher is Better Phys Func - Score 53 (within normal limits) 58 (within normal limits) Phys Func - Percentile 62 79 Self-Eff Symptom - Score 65 (High) 49 (Average) Self-Eff Symptom - Percentile 93 46 T-scores: mean of general population = 50. 5 points is clinically meaningfully difference Percentiles provide an indication of how the patient's score ranks in relation to the general population. Higher percentile rankings indicate better function/quality of life. 50th percentile is the average of the general population and indicates half of respondents had a worse score. OBJECTIVE MEASURES WITH LEVEL OF FUNCTION: Cervical Spine ROM Cervical Side-Bend Right AROM: Normal Cervical Side-Bend Left AROM: Moderate limitation, Produces UE AROM R Shoulder Flex: 170 Degrees R Shoulder ABduction: 155 Degrees R Shoulder Internal Rotation (Functional): C5 R Shoulder External Rotation (Functional): R PSIS L Shoulder Flex: 180 Degrees L Shoulder ABduction: 180 Degrees L Shoulder Internal Rotation (Functional): L1 L Shoulder External Rotation (Functional): T4 UE Flexibility R Upper Trapezius Flexibilty Comments: moderate limitation L Upper Trapezius Flexibility Comments: WNL R Levator Scapulae Flexibilty Comments: WNL L Levator Scapulae Flexibility Comments: WNL TREATMENT: Therapeutic Exercise: 1: UE magnum erg level 2, 3 min fwd and 3 min reverse, subjective collected 1:1 throughout, seat 10 2: UT stretch 1x30 sec each side 3: levator scapulae stretch 1x30 sec each side 4: * Skilled Intervention: Patient was educated in proper exercise technique and purpose for exercises. Reviewed and educated patient on additions/changes for home exercise program as above (*). Skilled judgment was used in selection of appropriate interventions. Provided written instruction for home exercise program to facilitate proper performance and compliance. Correct performance of therapeutic exercises was facilitated with verbal, visual, and tactile cuing. Educated patient on rationale for performing exercises in regards to decreasing fatigue , increase ease of ADL, and ROM and function . Patient education as noted. Billing Therapeutic Exercise Treatment Minutes: 40 Skilled Treatment Time Minutes (timed and untimed codes): 40 Total Session Time (minutes): 40 Session Start Time : 926 Session Stop Time : 1006 [facility] NoteHNO ID: [id number] Author: ELIZ SIFUENTES PT Service: ? Author Type: Physical Therapist Type: Progress Notes Filed: 06/04/2024 07:57 Note Text: Episode Visit Count: 8 Therapist That Will Accept/Oversee The Plan Of Care: Eliz Sifuentes Start of Care Date: 03/27/24 Onset Date: 03/09/24 Plan of Care Certification Date: 05/15/24 Next Certification Due Date: 06/26/24 Patient Identified by Name and Date of : Yes REHABILITATION AND SPORTS THERAPY PHYSICAL THERAPY TREATMENT NOTE ASSESSMENT: Mendoza Johnson tolerated the session with fatigue and expected muscle soreness. She demonstrated difficulty with ER due to fatigue. The patient will continue to benefit from ongoing skilled physical therapy to progress toward set goals. PLAN FOR NEXT VISIT: Continue with scapular stabilization exercises SUBJECTIVE: Pt reports that her shoulder feeels the same. Pt states that [place] and was not able to do as many exercises. Pain: Pain Pain Level: 0 Pain Location: Shoulder - Right Post Treatment Pain Post Treatment Pain Location: Shoulder - Right Post Treatment Symptoms: sore OBJECTIVE MEASURES WITH LEVEL OF FUNCTION: Difficulty with ROM with ER in SL. TREATMENT: Therapeutic Exercise: 1: UE magnum erg level 2, 3 min fwd and 3 min reverse, subjective collected 1:1 throughout, seat 10 2: Standing OTB shoulder extesnion 4x12 3: OTB ER 4x12 4: pillow case SA slide up wall 2x12 5: Bicep stretching 3x30 seconds 6: SL ER without weight 4x12 7: Horizontal abduction with OTB 2x10 8: ER with OTB 2x10 Skilled Intervention: Patient was educated in proper exercise technique and purpose for exercises. Skilled judgment was used in selection of appropriate interventions. Correct performance of therapeutic exercises was facilitated with verbal and visual cuing. Billing Therapeutic Exercise Treatment Minutes: 39 Skilled Treatment Time Minutes (timed and untimed codes): 39 Total Session Time (minutes): 39 Session Start Time : 929 Session Stop Time : 100 Farrah Pricedanielle, PATIENT CARE ASSISTANT Eliz Sifuentes, [facility]09-06-2024 History of Present illness Narrative* Eliz Sifuentes, PT - 06/01/2024 9:31 AM EDT Episode Visit Count: 8 Therapist That Will Accept/Oversee The Plan Of Care: Eliz Sifuentes Start of Care Date: 03/27/24 Onset Date: 03/09/24 Plan of Care Certification Date: 05/15/24 Next Certification Due Date: 06/26/24 Patient Identified by Name and Date of : Yes REHABILITATION AND SPORTS THERAPY PHYSICAL THERAPY TREATMENT NOTE ASSESSMENT: Mendoza Johnson tolerated the session with fatigue and expected muscle soreness. She demonstrated difficulty with ER due to fatigue. The patient will continue to benefit from ongoing skilledphysical therapy to progress toward set goals. PLAN FOR NEXT VISIT: Continue with scapular stabilization exercises SUBJECTIVE: Pt reports that her shoulder feeels the same. Pt states that she was [place] of [place] last week and was not able to do as many exercises. Pain: Pain Pain Level: 0 Pain Location: Shoulder - Right Post Treatment Pain Post Treatment Pain Location: Shoulder - Right Post Treatment Symptoms: sore OBJECTIVE MEASURES WITH LEVEL OF FUNCTION: Difficulty with ROM with ER in SL. TREATMENT: Therapeutic Exercise: 1: UE magnum erg level 2, 3 min fwd and 3 min reverse, subjective collected 1:1 throughout, seat 10 2: Standing OTB shoulder extesnion 4x12 3: OTB ER 4x12 4: pillow case SA slide up wall 2x12 5: Bicep stretching 3x30 seconds 6: SL ER without weight 4x12 7: Horizontal abduction with OTB 2x10 8: ER with OTB 2x10 Skilled Intervention: Patient was educated in proper exercise technique and purpose for exercises. Skilled judgment was used in selection of appropriate interventions. Correct performance of therapeutic exercises was facilitated with verbal and visual cuing. Billing Therapeutic Exercise Treatment Minutes: 39 Skilled Treatment Time Minutes (timed and untimed codes): 39 Total Session Time (minutes): 39 Session Start Time : 929 Session Stop Time : 1009 CECILIA Dumas PT documented in this encounterOhiohealth [facility]08-27-2024 NoteHNO ID: [id number] Author: ELIZ SIFUENTES PT Service: ? Author Type: Physical Therapist Type: Progress Notes Filed: 05/22/2024 15:36 Note Text: Episode Visit Count: 7 Therapist That Will Accept/Oversee The Plan Of Care: Eliz Sifuentes Start of Care Date: 03/27/24 Onset Date: 03/09/24 Plan of Care Certification Date: 05/15/24 Next Certification Due Date: 06/26/24 REHABILITATION AND SPORTS THERAPY PHYSICAL THERAPY TREATMENT NOTE ASSESSMENT: Mendoza Johnson tolerated the session with fatigue and expected muscle soreness. She demonstrated difficulty with ER AROM due to pain and weakness. R shoulder anterior tightness/pain limited tolerance with SA pillowcase wall slides. The patient will continue to benefit from ongoing skilled physical therapy to progress toward set goals. Current Frequency: 1x/week Duration: 6 weeks PLAN FOR NEXT VISIT: SUBJECTIVE: Shoulder pain has not changed much. Pain: Pain Pain Level: 0 Pain Location: Shoulder - Right Post Treatment Pain Post Treatment Pain Level: No Change Post Treatment Pain Location: Shoulder - Right OBJECTIVE MEASURES WITH LEVEL OF FUNCTION: TREATMENT: Therapeutic Exercise: 1: UE magnum erg level 2, 3 min fwd and 3 min reverse, subjective collected 1:1 throughout, seat 10 2: SL DB ER #1 1x12 - mentions biceps soreness 3: SL ER #0 3x12 4: *biceps stretch on wall 3x30 sec, 2-3 times/day 5: pillow case SA slide up wall 2x12 6: *SL R shoulder ABD 4x12 7: *orange band issueed 8: *standing orange band R shoulder extension 4x12 9: *standing orange band ER 4x12 Skilled Intervention: Patient was educated in proper exercise technique and purpose for exercises. Reviewed and educated patient on additions/changes for home exercise program as above (*). Skilled judgment was used in selection of appropriate interventions. Provided written instruction for home exercise program to facilitate proper performance and compliance. Correct performance of therapeutic exercises was facilitated with verbal, visual, and tactile cuing. Educated patient on rationale for performing exercises in regards to decreasing fatigue , increase ease of ADL, and ROM and function . Patient education as noted. Billing Therapeutic Exercise Treatment Minutes: 40 Skilled Treatment Time Minutes (timed and untimed codes): 40 Total Session Time (minutes): 40 Session Start Time : 1454 Session Stop Time : 1534 Eliz Sifuentes, [facility]08-27-2024 History of Present illness Narrative* Eliz Sifuentes, PT - 05/22/2024 2:54 PM EDT Episode Visit Count: 7 Therapist That Will Accept/Oversee The Plan Of Care: Eliz Sifuentes Start of Care Date: 03/27/24 Onset Date: 03/09/24 Plan of Care Certification Date: 05/15/24 Next Certification Due Date: 06/26/24 REHABILITATION AND SPORTS THERAPY PHYSICAL THERAPY TREATMENT NOTE ASSESSMENT: Mendoza Johnson tolerated the session with fatigue and expected muscle soreness. She demonstrated difficulty with ER AROM due to pain and weakness. R shoulder anterior tightness/pain limitedtolerance with SA pillowcase wall slides. The patient will continue to benefit from ongoing skilledphysical therapy to progress toward set goals. Current Frequency: 1x/week Duration: 6 weeks PLAN FOR NEXT VISIT: SUBJECTIVE: Shoulder pain has not changed much. Pain: Pain Pain Level: 0 Pain Location: Shoulder - Right Post Treatment Pain Post Treatment Pain Level: No Change Post Treatment Pain Location: Shoulder - Right OBJECTIVE MEASURES WITH LEVEL OF FUNCTION: TREATMENT: Therapeutic Exercise: 1: UE magnum erg level 2, 3 min fwd and 3 min reverse, subjective collected 1:1 throughout, seat 10 2: SL DB ER #1 1x12 - mentions biceps soreness 3: SL ER #0 3x12 4: *biceps stretch on wall 3x30 sec, 2-3 times/day 5: pillow case SA slide up wall 2x12 6: *SL R shoulder ABD 4x12 7: *orange band issueed 8: *standing orange band R shoulder extension 4x12 9: *standing orange band ER 4x12 Skilled Intervention: Patient was educated in proper exercise technique and purpose for exercises. Reviewed and educated patient on additions/changes for home exercise program as above (*). Skilled judgment was used in selection of appropriate interventions. Provided written instruction for home exercise program to facilitate proper performance and compliance. Correct performance of therapeutic exercises was facilitated with verbal, visual, and tactile cuing. Educated patient on rationale for performing exercises in regards to decreasing fatigue , increase ease of ADL, and ROM and function . Patient education as noted. Billing Therapeutic Exercise Treatment Minutes: 40 Skilled Treatment Time Minutes (timed and untimed codes): 40 Total Session Time (minutes): 40 Session Start Time : 1454 Session Stop Time : 1534 Eliz Sifuentes PT documented in this encounterOhiohealth [facility]08-20-2024 History of Present illness Narrative* Eliz Sifuentes PT - 05/15/2024 3:24 PM EDT Program_ID:[id number] Access Code: [email or web address] URL: [email or web address] Date: 05-15-2024 Prepared By: Eliz Sifuentes Program Notes Exercises - Seated Shoulder Shrug Circles AROM Backward - 1 x daily - 7 x weekly - 2 sets - 20 reps - Shoulder External Rotation and Scapular Retraction with Resistance - 1 x daily - 7 x weekly - 3 sets - 1 reps - Shoulder External Rotation and Scapular Retraction with Resistance - 1 x daily - 7 x weekly - 3-4 sets - 15 reps - Horizontal Wall Walk with Resistance - 1 x daily - 7 x weekly - 4 sets - 8-10 reps - Shoulder Flexion Wall Walk - 1 x daily - 7 x weekly - 4 sets - 8-10 reps * Eliz Sifuentes PT - 05/15/2024 2:55 PM EDT Episode Visit Count: 6 Therapist That Will Accept/Oversee The Plan Of Care: Eliz Sifuentes Start of Care Date: 03/27/24 Onset Date: 03/09/24 Plan of Care Certification Date: 05/15/24 Next Certification Due Date: 06/26/24 REHABILITATION AND SPORTS THERAPY PHYSICAL THERAPY PROGRESS REPORT PLAN OF CARE UPDATE: Assessment: Mendoza Johnson demonstrates improvements in use hand with arm at shoulder level and driving. She has progressed toward goals. Patient continues to present with impairments in ADL's, flexibility, independence in exercise, joint mobility, overall function, patient reported outcome measures, posture, range of motion, strength, symptom management, and tissue tenderness that interfere with reaching behind back, reaching overhead, working, lifting, recreational activities, physical activities (reachingout and to the side) . Current prognosis is Good due to: within-session changes, current objective clinical presentation, good overall health status, acuteness of condition, good support system/ coping skills . She will benefit from continued skilled therapy services to meet the updated goals for this plan of care as noted below. Goals for Episode of Care: created on 03/27/24 through 05/22/24 Goals updated on 05/15/2024 through 06/26/24 De Young in home exercise program. -- MET Patient will decrease pain rating by 2 points to meet minimal clinical important difference for numeric pain rating scale. -- MET Patient will increase active ROM of right shoulder FE to 160 degrees or greater pain free per pt. report to allow pt to to improve performance of ADLs. -- scaption plane met, abd and flexion -- PROGRESSING Patient will increase flexibility of right UT and levator scapulae to WNL to improve ability to maintain proper posture and decrease pain. -- PROGRESSING Perform reaching behind the back and behind the head with decreased report of symptoms/pain in 8 weeks. -- PROGRESSING Patient Goals: restore AROM of R shoulder without limitations due to pain -- PROGRESSING Patient Goals: restore AROM of R shoulder without limitations due to pain Planned Interventions, Frequency, and Duration: 1x/week, 6 weeks Total Number of Visits Planned: 6 Patient to be seen for Gait Training (36748), Self-fci management ([id number]), Therapeutic activities (53519), Manual therapy (18588), Therapeutic exercise (39954), Neuromuscular re-education ([id number]) PLAN FOR NEXT VISIT: assess symptom response with scapular stabilization using theraband resistance SUBJECTIVE: Pt. reports improvement with using a computer mouse. 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 Pain is in the anterior R shoulder. Patient Goals: restore AROM of R shoulder without limitations due to pain Functional Limitations: reaching behind back, reaching overhead, working, lifting, recreational activities, physical activities (reaching out and to the side) Pain: Pain Pain Level: 0 Pain Location: Shoulder - Right Description: Sore Post Treatment Pain Post Treatment Pain Level: Better Post Treatment Pain Location: Shoulder - Right PROMIS Scales 05/08/2024 05/01/2024 03/27/2024 Higher is Better Phys Func - Score 58 (within normal limits) 57 (within normal limits) Phys Func - Percentile 79 76 Self-Eff Symptom - Score 49 (Average) 60 (High) Self-Eff Symptom - Percentile 46 84 T-scores: mean of general population = 50. 5 points is clinically meaningfully difference Percentiles provide an indication of how the patient's score ranks in relation to the general population. Higher percentile rankings indicate better function/quality of life. 50th percentile is the average of the general population and indicates half of respondents had a worse score. OBJECTIVE MEASURES WITH LEVEL OF FUNCTION: UE PROM R Shoulder Flex: 151 Degrees (scaption 163) R Shoulder ABduction: 148 Degrees UE Flexibility R Upper Trapezius Flexibilty Comments: limited R Levator Scapulae Flexibilty Comments: limited TREATMENT: Therapeutic Exercise: 1: seated reverse scapular circles 2x20 each direction 2: 3x30 sec ER isometric with pink band 3: *Access Code: [email or web address] URL: [email or web address] Date: 05/15/2024 Prepared by: Eliz Schmid Exercises - Seated Shoulder Shrug Circles AROM Backward - 1 x daily - 7 x weekly - 2 sets - 20 reps - 1 hold - Shoulder External Rotation and Scapular Retraction with Resistance - 1x daily - 7 x weekly - 3 sets - 1 reps - 30 hold - Shoulder External Rotation and Scapular Retraction with Resistance - 1 x daily - 7 x weekly - 3-4 sets - 15 reps - 1 hold - Horizontal Wall Walk with Resistance - 1 x daily - 7 x weekly - 4 sets - 8-10 reps - 1 hold - Shoulder Flexion Wall Walk - 1x daily - 7 x weekly - 4 sets - 8-10 reps - 1 hold 4: orange and pink band issued Skilled Intervention: Patient was educated in proper exercise technique and purpose for exercises. Skilled judgment was used in selection of appropriate interventions. Provided written instruction for home exercise program to facilitate proper performance and compliance. Correct performance of therapeutic exercises was facilitated with verbal, visual, and tactile cuing. Educated patient on rationale for performing exercises in regards to decreasing fatigue , increase ease of ADL, and ROM and function . Patient education as noted. Billing Therapeutic Exercise Treatment Minutes: 38 Skilled Treatment Time Minutes (timed and untimed codes): 38 Total Session Time (minutes): 38 Session Start Time : 1457 Session Stop Time : 153 Eliz Sifuentes PT documented in this encounterOhio[facility] NoteHNO ID: [id number] Author: ELIZ SIFUENTES PT Service: ? Author Type: Physical Therapist Type: Progress Notes Filed: 05/15/2024 15:35 Note Text: Episode Visit Count: 6 Therapist That Will Accept/Oversee The Plan Of Care: Eliz Sifuentes Start of Care Date: 03/27/24 Onset Date: 03/09/24 Plan of Care Certification Date: 05/15/24 Next Certification Due Date: 06/26/24 REHABILITATION AND SPORTS THERAPY PHYSICAL THERAPY PROGRESS REPORT PLAN OF CARE UPDATE: Assessment: Mendoza Johnson demonstrates improvements in use hand with arm at shoulder level and driving. She has progressed toward goals. Patient continues to present with impairments in ADL's, flexibility, independence in exercise, joint mobility, overall function, patient reported outcome measures, posture, range of motion, strength, symptom management, and tissue tenderness that interfere with reaching behind back, reaching overhead, working, lifting, recreational activities, physical activities (reaching out and to the side) . Current prognosis is Good due to: within-session changes, current objective clinical presentation, good overall health status, acuteness of condition, good support system/ coping skills . She will benefit from continued skilled therapy services to meet the updated goals for this plan of care as noted below. Goals for Episode of Care: created on 03/27/24 through 05/22/24 Goals updated on 05/15/2024 through 06/26/24 [place] in home exercise program. -- MET Patient will decrease pain rating by 2 points to meet minimal clinical important difference for numeric pain rating scale. -- MET Patient will increase active ROM of right shoulder FE to 160 degrees or greater pain free per pt. report to allow pt to to improve performance of ADLs. -- scaption plane met, abd and flexion -- PROGRESSING Patient will increase flexibility of right UT and levator scapulae to WNL to improve ability to maintain proper posture and decrease pain. -- PROGRESSING Perform reaching behind the back and behind the head with decreased report of symptoms/pain in 8 weeks. -- PROGRESSING Patient Goals: restore AROM of R shoulder without limitations due to pain -- PROGRESSING Patient Goals: restore AROM of R shoulder without limitations due to pain Planned Interventions, Frequency, and Duration: 1x/week, 6 weeks Total Number of Visits Planned: 6 Patient to be seen for Gait Training (45263), Self-fci management (31218), Therapeutic activities (38934), Manual therapy (47555), Therapeutic exercise (71270), Neuromuscular re-education (45237) PLAN FOR NEXT VISIT: assess symptom response with scapular stabilization using theraband resistance SUBJECTIVE: Pt. reports improvement with using a computer mouse. 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 Patient Goals: restore AROM of R shoulder without limitations due to pain Functional Limitations: reaching behind back, reaching overhead, working, lifting, recreational activities, physical activities (reaching out and to the side) Pain: Pain Pain Level: 0 Pain Location: Shoulder - Right Description: Sore Post Treatment Pain Post Treatment Pain Level: Better Post Treatment Pain Location: Shoulder - Right PROMIS Scales 05/08/2024 05/01/2024 03/27/2024 Higher is Better Phys Func - Score 58 (within normal limits) 57 (within normal limits) Phys Func - Percentile 79 76 Self-Eff Symptom - Score 49 (Average) 60 (High) Self-Eff Symptom - Percentile 46 84 T-scores: mean of general population = 50. 5 points is clinically meaningfully difference Percentiles provide an indication of how the patient's score ranks in relation to the general population. Higher percentile rankings indicate better function/quality of life. 50th percentile is the average of the general population and indicates half of respondents had a worse score. OBJECTIVE MEASURES WITH LEVEL OF FUNCTION: UE PROM R Shoulder Flex: 151 Degrees (scaption 163) R Shoulder ABduction: 148 Degrees UE Flexibility R Upper Trapezius Flexibilty Comments: limited R Levator Scapulae Flexibilty Comments: limited TREATMENT: Therapeutic Exercise: 1: seated reverse scapular circles 2x20 each direction 2: 3x30 sec ER isometric with pink band 3: *Access Code: [email or web address] URL: [email or web address] Date: 05/15/2024 Prepared by: Eliz Sifuentes Exercises - Seated Shoulder Shrug Circles AROM Backward - 1 x daily - 7 x weekly - 2 sets - 20 reps - 1 hold - Shoulder External Rotation and Scapular Retraction with Resistance - 1 x daily - 7 x weekly - 3 sets - 1 reps - 30 hold - Shoulder External Rotation and Scapular Retraction with Resistance - 1 x daily - 7 x weekly - 3-4 sets - 15 reps - 1 hold - Horizontal Wall Walk with Resistance - 1 x daily - 7 x weekly - 4 sets - 8-10 reps - 1 hold - Shoulder Flexion Wall Walk - 1 x daily - 7 x weekly - 4 set (more content not included)...[facility] 05-08-2024 NoteHNO ID: [id number] Author: ELIZ SIFUENTES, PT Service: ? Author Type: Physical Therapist Type: Progress Notes Filed: 05/08/2024 16:46 Note Text: Episode Visit Count: 5 Therapist That Will Accept/Oversee The Plan Of Care: Eliz Sifuentes Start of Care Date: 03/27/24 Onset Date: 03/09/24 Plan of Care Certification Date: 03/27/24 Next Certification Due Date: 05/22/24 Patient Identified by Name and Date of : Yes REHABILITATION AND SPORTS THERAPY PHYSICAL THERAPY TREATMENT NOTE ASSESSMENT: Mendoza Johnson tolerated the session with fatigue and expected muscle soreness. She demonstrated improvements in ability to perform flexion of R shoulder above 90 degrees. The patient will continue to benefit from ongoing skilled physical therapy to progress toward set goals. PLAN FOR NEXT VISIT: Continue with AAROM for abduction, IR, and ER. Continue with AROM for flexion. Scapular stabilization. SUBJECTIVE: Pt reports that her shoulder is sore today. 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 Pain: Pain Pain Level: 0 Pain Location: Shoulder - Right Description: Sore Post Treatment Pain Post Treatment Pain Location: Shoulder - Right Post Treatment Symptoms: fatigue OBJECTIVE MEASURES WITH LEVEL OF FUNCTION: Limited mobility with AAROM ER. TREATMENT: Therapeutic Exercise: 1: UBE x 2 minutes forwards, x 2 minutes backwards (1:1 throughout. Discussed current progress) 2: AAROM wand flexion in sitting 2x10 3: AAROM ER 2x10 4: Seated R UT stretch 3x30 seconds 5: Seated R levator scap stretch 3x30 seconds 6: AAROM wand abduction in standing 2x10 7: AROM R shoulder flexion 2x 10 8: Wand IR behind back 2x10 9: AROM scaption to 90 degrees 2x10 10: Body blade IR/ER 3x30 seconds 11: Body blade up and down oscillations with 0 degrees of abduction 3x30 seconds 12: Wall alphabet A-Z x1 Skilled Intervention: Patient was educated in proper exercise technique and purpose for exercises. Skilled judgment was used in selection of appropriate interventions. Correct performance of therapeutic exercises was facilitated with verbal and visual cuing. Billing Therapeutic Exercise Treatment Minutes: 39 Skilled Treatment Time Minutes (timed and untimed codes): 39 Total Session Time (minutes): 39 Session Start Time : 153 Session Stop Time : 1611 Farrah Whiting, CECILIA Sifuentes, [facility]08-13-2024 History of Present illness Narrative* Eliz Sifuentes, PT - 05/08/2024 3:33 PM EDT Episode Visit Count: 5 Therapist That Will Accept/Oversee The Plan Of Care: Eliz Sifuentes Start of Care Date: 03/27/24 Onset Date: 03/09/24 Plan of Care Certification Date: 03/27/24 Next Certification Due Date: 05/22/24 Patient Identified by Name and Date of : Yes REHABILITATION AND SPORTS THERAPY PHYSICAL THERAPY TREATMENT NOTE ASSESSMENT: Mendoza Johnson tolerated the session with fatigue and expected muscle soreness. She demonstrated improvements in ability to perform flexion of R shoulder above 90 degrees. The patient will continue to benefit from ongoing skilled physical therapy to progress toward set goals. PLAN FOR NEXT VISIT: Continue with AAROM for abduction, IR, and ER. Continue with AROM for flexion. Scapular stabilization. SUBJECTIVE: Pt reports that her shoulder is sore today. 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 Pain: Pain Pain Level: 0 Pain Location: Shoulder - Right Description: Sore Post Treatment Pain Post Treatment Pain Location: Shoulder - Right Post Treatment Symptoms: fatigue OBJECTIVE MEASURES WITH LEVEL OF FUNCTION: Limited mobility with AAROM ER. TREATMENT: Therapeutic Exercise: 1: UBE x 2 minutes forwards, x 2 minutes backwards (1:1 throughout. Discussed current progress) 2: AAROM wand flexion in sitting 2x10 3: AAROM ER 2x10 4: Seated R UT stretch 3x30 seconds 5: Seated R levator scap stretch 3x30 seconds 6: AAROM wand abduction in standing 2x10 7: AROM R shoulder flexion 2x 10 8: Wand IR behind back 2x10 9: AROM scaption to 90 degrees 2x10 10: Body blade IR/ER 3x30 seconds 11: Body blade up and down oscillations with 0 degrees of abduction 3x30 seconds 12: Wall alphabet A-Z x1 Skilled Intervention: Patient was educated in proper exercise technique and purpose for exercises. Skilled judgment was used in selection of appropriate interventions. Correct performance of therapeutic exercises was facilitated with verbal and visual cuing. Billing Therapeutic Exercise Treatment Minutes: 39 Skilled Treatment Time Minutes (timed and untimed codes): 39 Total Session Time (minutes): 39 Session Start Time : 1532 Session Stop Time : 1611 CECILIA Dumas, PT documented in this encounterOhio[facility]08-06-2024 History of Present illness Narrative* Farrah Whiting PTA - 05/01/2024 4:00 PM EDT Program_ID:[id number] Access Code: [email or web address] URL: [email or web address] Date: 05-01-2024 Prepared By: Eliz Sifuentes Program Notes Exercises - Seated Scapular Retraction - 2-3 x daily - 7 x weekly - 2 sets - 15-20 reps - Seated Shoulder Flexion AAROM with Bettina Behind - 1-2 x daily - 7 x weekly - 2-3 sets - 10 reps - Seated Shoulder Scaption AAROM with Bettina at Side - 1-2 x daily - 7 x weekly - 2-3 sets - 10 reps - Seated Shoulder Abduction AAROM with Bettina Behind - 1-2 x daily - 7 x weekly - 2-3 sets - 10 reps - Isometric Shoulder Flexion at Wall - 1 x daily - 7 x weekly - 2-3 sets - 10 reps - Isometric Shoulder Extension at Wall - 1 x daily - 7 x weekly - 2-3 sets - 10 reps - Standing Shoulder Abduction AAROM with Dowel - 2 x daily - 7 x weekly - 2 sets - 10 reps - Standing Shoulder Flexion AAROM with Dowel - 2 x daily - 7 x weekly - 2 sets - 10 reps - Standing Shoulder External Rotation AAROM with Dowel - 2 x daily - 7 x weekly - 2 sets - 10 reps * Sterling Boyd, PT - 05/01/2024 3:31 PM EDT Episode Visit Count: 4 Therapist That Will Accept/Oversee The Plan Of Care: Eliz Sifuentes Start of Care Date: 03/27/24 Onset Date: 03/09/24 Plan of Care Certification Date: 03/27/24 Next Certification Due Date: 05/22/24 Patient Identified by Name and Date of : Yes REHABILITATION AND SPORTS THERAPY PHYSICAL THERAPY TREATMENT NOTE ASSESSMENT: Mendoza Johnson tolerated the session with fatigue and expected muscle soreness. She demonstrated improvements in AAROM of R shoulder flexion. The patient will continue to benefit from ongoing skilled physical therapy to progress toward set goals. PLAN FOR NEXT VISIT: Continue with AAROM and advance to AROM as tolerated SUBJECTIVE: Pt reports that her shoulder is doing alright, not much change. Completeing HEP. Pain: Pain Pain Level: 0 Pain Location: Shoulder - Right Post Treatment Pain Post Treatment Pain Location: Shoulder - Right Post Treatment Symptoms: fatigue OBJECTIVE MEASURES WITH LEVEL OF FUNCTION: UE AROM R Shoulder Flex: 143 Degrees (AAROM wall slides) TREATMENT: Therapeutic Exercise: 1: UBE x 2 minutes forwards, x 2 minutes backwards (1:1 throughout. Discussed current progress) 2: *AAROM wand flexion in sitting 2x10 3: *AAROM wand abdcution in standing 2x10 4: *AAROM ER 2x10 5: AAROM wall sldies for flexion 2x10 6: AAROM wall slides for abduction 2x10 7: Wall alphabet A-Z x1 8: Wand IR behind back 2x10 9: R shoulder isometrics: flex, IR,ER, abduction, and extension. 2x10 each with 5 second holds Skilled Intervention: Patient was educated in proper exercise technique and purpose for exercises. Reviewed and educated patient on additions/changes for home exercise program as above (*). Skilled judgment was used in selection of appropriate interventions. Provided written instruction for home exercise program to facilitate proper performance and compliance. Correct performance of therapeutic exercises was facilitated with verbal and visual cuing. Billing Therapeutic Exercise Treatment Minutes: 31 Skilled Treatment Time Minutes (timed and untimed codes): 31 Total Session Time (minutes): 31 Session Start Time : 1530 Session Stop Time : 1601 CECILIA Dumas PT documented in this encounterOhiohealth [facility]08-06-2024 NoteHNO ID: [id number] Author: STERLING BOYD PT Service: ? Author Type: Physical Therapist Type: Progress Notes Filed: 05/02/2024 06:24 Note Text: Episode Visit Count: 4 Therapist That Will Accept/Oversee The Plan Of Care: Eliz Sifuentes Start of Care Date: 03/27/24 Onset Date: 03/09/24 Plan of Care Certification Date: 03/27/24 Next Certification Due Date: 05/22/24 Patient Identified by Name and Date of : Yes REHABILITATION AND SPORTS THERAPY PHYSICAL THERAPY TREATMENT NOTE ASSESSMENT: Mendoza Johnson tolerated the session with fatigue and expected muscle soreness. She demonstrated improvements in AAROM of R shoulder flexion. The patient will continue to benefit from ongoing skilled physical therapy to progress toward set goals. PLAN FOR NEXT VISIT: Continue with AAROM and advance to AROM as tolerated SUBJECTIVE: Pt reports that her shoulder is doing alright, not much change. Completeing HEP. Pain: Pain Pain Level: 0 Pain Location: Shoulder - Right Post Treatment Pain Post Treatment Pain Location: Shoulder - Right Post Treatment Symptoms: fatigue OBJECTIVE MEASURES WITH LEVEL OF FUNCTION: UE AROM R Shoulder Flex: 143 Degrees (AAROM wall slides) TREATMENT: Therapeutic Exercise: 1: UBE x 2 minutes forwards, x 2 minutes backwards (1:1 throughout. Discussed current progress) 2: *AAROM wand flexion in sitting 2x10 3: *AAROM wand abdcution in standing 2x10 4: *AAROM ER 2x10 5: AAROM wall sldies for flexion 2x10 6: AAROM wall slides for abduction 2x10 7: Wall alphabet A-Z x1 8: Wand IR behind back 2x10 9: R shoulder isometrics: flex, IR,ER, abduction, and extension. 2x10 each with 5 second holds Skilled Intervention: Patient was educated in proper exercise technique and purpose for exercises. Reviewed and educated patient on additions/changes for home exercise program as above (*). Skilled judgment was used in selection of appropriate interventions. Provided written instruction for home exercise program to facilitate proper performance and compliance. Correct performance of therapeutic exercises was facilitated with verbal and visual cuing. Billing Therapeutic Exercise Treatment Minutes: 31 Skilled Treatment Time Minutes (timed and untimed codes): 31 Total Session Time (minutes): 31 Session Start Time : 1530 Session Stop Time : 1601 Farrah Whiting, PATIENT CARE ASSISTANT Sterling Boyd, [facility]07-16-2024 NoteHNO ID: [id number] Author: ELIZ SIFUENTES PT Service: ? Author Type: Physical Therapist Type: Progress Notes Filed: 04/10/2024 15:35 Note Text: Episode Visit Count: 3 Therapist That Will Accept/Oversee The Plan Of Care: Eliz Sifuentes Start of Care Date: 03/27/24 Onset Date: 03/09/24 Plan of Care Certification Date: 03/27/24 Next Certification Due Date: 05/22/24 Patient Identified by Name and Date of : Yes REHABILITATION AND SPORTS THERAPY PHYSICAL THERAPY TREATMENT NOTE ASSESSMENT: Mendoza Johnson tolerated the session with fatigue and expected muscle soreness. She demonstrated improvements in R shoulder AAROM flexion and abduction. The patient will continue to benefit from ongoing skilled physical therapy to progress toward set goals. PLAN FOR NEXT VISIT: Continue with AAROM of R shoulder. Update HEP with wand exercises if favorable response. SUBJECTIVE: Pt reports that her shoulder is doing okay today, just a little soreness. Pt states that useing the UBE felt fine while doing it, but afterwards she had some discomfort. Pain: Pain Pain Level: 0 Pain Location: Shoulder - Right Post Treatment Pain Post Treatment Pain Location: Shoulder - Right Post Treatment Symptoms: I feel like I worked it and it's yelling at me, but not bad. OBJECTIVE MEASURES WITH LEVEL OF FUNCTION: UE AROM R Shoulder Flex: 134 Degrees (with pulleys) R Shoulder ABduction: 54 Degrees (AAROM with wand in standing) TREATMENT: Therapeutic Exercise: 1: Pulleys into flexion and abduction x2 minutes each way 2: R shoulder isometrics: flex, IR,ER, abduction, and extension. 2x10 each with 5 second holds 3: Wall slides for flexion 2x10 4: Wall alphabet A-Z x11 5: Scapular retractions with GTB 2x10 6: AAROM wand flexion in supine 2x10 7: AAROM wand press 2 x 10 8: Seated wand AAROM ER 2x10 Skilled Intervention: Patient was educated in proper exercise technique and purpose for exercises. Skilled judgment was used in selection of appropriate interventions. Correct performance of therapeutic exercises was facilitated with verbal and visual cuing. Billing Therapeutic Exercise Treatment Minutes: 34 Skilled Treatment Time Minutes (timed and untimed codes): 34 Total Session Time (minutes): 34 Session Start Time : 1442 Session Stop Time : 1516 Farrah Whiting, CECILIA Sifuentes, [facility]07-16-2024 History of Present illness Narrative* Eliz Sifuentes, PT - 04/10/2024 2:43 PM EDT Episode Visit Count: 3 Therapist That Will Accept/Oversee The Plan Of Care: Eliz Sifuentes Start of Care Date: 03/27/24 Onset Date: 03/09/24 Plan of Care Certification Date: 03/27/24 Next Certification Due Date: 05/22/24 Patient Identified by Name and Date of : Yes REHABILITATION AND SPORTS THERAPY PHYSICAL THERAPY TREATMENT NOTE ASSESSMENT: Mendoza Johnson tolerated the session with fatigue and expected muscle soreness. She demonstrated improvements in R shoulder AAROM flexion and abduction. The patient will continue to benefitfrom ongoing skilled physical therapy to progress toward set goals. PLAN FOR NEXT VISIT: Continue with AAROM of R shoulder. Update HEP with wand exercises if favorable response. SUBJECTIVE: Pt reports that her shoulder is doing okay today, just a little soreness. Pt states that useing the UBE felt fine while doing it, but afterwards she had some discomfort. Pain: Pain Pain Level: 0 Pain Location: Shoulder - Right Post Treatment Pain Post Treatment Pain Location: Shoulder - Right Post Treatment Symptoms: I feel like I worked it and it's yelling at me, but not bad. OBJECTIVE MEASURES WITH LEVEL OF FUNCTION: UE AROM R Shoulder Flex: 134 Degrees (with pulleys) R Shoulder ABduction: 54 Degrees (AAROM with wand in standing) TREATMENT: Therapeutic Exercise: 1: Pulleys into flexion and abduction x2 minutes each way 2: R shoulder isometrics: flex, IR,ER, abduction, and extension. 2x10 each with 5 second holds 3: Wall slides for flexion 2x10 4: Wall alphabet A-Z x11 5: Scapular retractions with GTB 2x10 6: AAROM wand flexion in supine 2x10 7: AAROM wand press 2 x 10 8: Seated wand AAROM ER 2x10 Skilled Intervention: Patient was educated in proper exercise technique and purpose for exercises. Skilled judgment was used in selection of appropriate interventions. Correct performance of therapeutic exercises was facilitated with verbal and visual cuing. Billing Therapeutic Exercise Treatment Minutes: 34 Skilled Treatment Time Minutes (timed and untimed codes): 34 Total Session Time (minutes): 34 Session Start Time : 1442 Session Stop Time : 1516 CECILIA Dumas, PT documented in this encounterOhiohealth [facility]07-10-2024 History of Present illness Narrative* Siobhan Patel, PT, DPT - 04/04/2024 4:23 PM EDT Program_ID:[id number] Access Code: [email or web address] URL: [email or web address] Date: 04-04-2024 Prepared By: Eliz Sifuentes Program Notes Exercises - Seated Scapular Retraction - 2-3 x daily - 7 x weekly - 2 sets - 15-20 reps - Seated Shoulder Flexion AAROM with Bettina Behind - 1-2 x daily - 7 x weekly - 2-3 sets - 10 reps - Seated Shoulder Scaption AAROM with Bettina at Side - 1-2 x daily - 7 x weekly - 2-3 sets - 10 reps - Seated Shoulder Abduction AAROM with Bettina Behind - 1-2 x daily - 7 x weekly - 2-3 sets - 10 reps - Isometric Shoulder Flexion at Wall - 1 x daily - 7 x weekly - 2-3 sets - 10 reps - Isometric Shoulder Extension at Wall - 1 x daily - 7 x weekly - 2-3 sets - 10 reps * Siobhan Patel PT, DPT - 04/04/2024 3:51 PM EDT Episode Visit Count: 2 Therapist That Will Accept/Oversee The Plan Of Care: Eliz Sifuentes Start of Care Date: 03/27/24 Onset Date: 03/09/24 Plan of Care Certification Date: 03/27/24 Next Certification Due Date: 05/22/24 Patient Identified by Name and Date of : Yes REHABILITATION AND SPORTS THERAPY PHYSICAL THERAPY TREATMENT NOTE ASSESSMENT: Mendoza Johnson tolerated the session with expected muscle soreness. She demonstrated no pain during UBE warm-up though increased pain following. Tolerated intro to shoulder isos well, though abduction and ER iso painful and terminated before 10 reps. Pulleys and supine wand flexion AAROM tolerated without issue. The patient will continue to benefit from ongoing skilled physical therapy to progress toward set goals. PLAN FOR NEXT VISIT: Progress AAROM and AROM as able SUBJECTIVE: Patient notes some soreness today. HEP going well, doing daily. Pain: Pain Pain Level: 3 Pain Location: Shoulder - Right Post Treatment Pain Post Treatment Pain Level: 4 Post Treatment Pain Location: Shoulder - Right OBJECTIVE MEASURES WITH LEVEL OF FUNCTION: UE AROM R Shoulder Flex: 90 Degrees (AAROM pulleys) TREATMENT: Therapeutic Exercise: 1: UBE x2 minutes fwd no pain, x2 minutes backward no pain for trial, no resistance, verbal cues for left arm to do most of the work, right arm AAROM, no pain during though increased pain following (1:1 subjective collected) 2: Pulleys into flexion and abduction x2 minutes each way 3: R shoulder isos in all directions 3 sec hold x10 each way, ER and ABD terminated at rep 5 4: seated table slides into flexion x20, 5: Scapular retraction 2x10 6: Supine wand flexion 2x10 Skilled Intervention: Patient was educated in proper exercise technique and purpose for exercises. Reviewed and educated patient on additions/changes for home exercise program as above (*). Skilled judgment was used in selection of appropriate interventions. Provided written instruction for home exercise program to facilitate proper performance and compliance. Correct performance of therapeutic exercises was facilitated with verbal and visual cuing. Billing Therapeutic Exercise Treatment Minutes: 37 Skilled Treatment Time Minutes (timed and untimed codes): 37 Total Session Time (minutes): 37 Session Start Time : 1549 Session Stop Time : 1626 Siobhan Patel PT, DPT documented in this encounterOhiohealth [facility]07-10-2024 NoteHNO ID: [id number] Author: SIOBHAN PATEL PT, DPT Service: ? Author Type: Physical Therapist Type: Progress Notes Filed: 04/04/2024 17:41 Note Text: Episode Visit Count: 2 Therapist That Will Accept/Oversee The Plan Of Care: Eliz Sifuentes Start of Care Date: 03/27/24 Onset Date: 03/09/24 Plan of Care Certification Date: 03/27/24 Next Certification Due Date: 05/22/24 Patient Identified by Name and Date of : Yes REHABILITATION AND SPORTS THERAPY PHYSICAL THERAPY TREATMENT NOTE ASSESSMENT: Mendoza Johnson tolerated the session with expected muscle soreness. She demonstrated no pain during UBE warm-up though increased pain following. Tolerated intro to shoulder isos well, though abduction and ER iso painful and terminated before 10 reps. Pulleys and supine wand flexion AAROM tolerated without issue. The patient will continue to benefit from ongoing skilled physical therapy to progress toward set goals. PLAN FOR NEXT VISIT: Progress AAROM and AROM as able SUBJECTIVE: Patient notes some soreness today. HEP going well, doing daily. Pain: Pain Pain Level: 3 Pain Location: Shoulder - Right Post Treatment Pain Post Treatment Pain Level: 4 Post Treatment Pain Location: Shoulder - Right OBJECTIVE MEASURES WITH LEVEL OF FUNCTION: UE AROM R Shoulder Flex: 90 Degrees (AAROM pulleys) TREATMENT: Therapeutic Exercise: 1: UBE x2 minutes fwd no pain, x2 minutes backward no pain for trial, no resistance, verbal cues for left arm to do most of the work, right arm AAROM, no pain during though increased pain following (1:1 subjective collected) 2: Pulleys into flexion and abduction x2 minutes each way 3: R shoulder isos in all directions 3 sec hold x10 each way, ER and ABD terminated at rep 5 4: seated table slides into flexion x20, 5: Scapular retraction 2x10 6: Supine wand flexion 2x10 Skilled Intervention: Patient was educated in proper exercise technique and purpose for exercises. Reviewed and educated patient on additions/changes for home exercise program as above (*). Skilled judgment was used in selection of appropriate interventions. Provided written instruction for home exercise program to facilitate proper performance and compliance. Correct performance of therapeutic exercises was facilitated with verbal and visual cuing. Billing Therapeutic Exercise Treatment Minutes: 37 Skilled Treatment Time Minutes (timed and untimed codes): 37 Total Session Time (minutes): 37 Session Start Time : 1549 Session Stop Time : 1626 Siobhan Patel PT, [facility]07-02-2024 History of Present illness Narrative* Eliz Sifuentes, PT - 03/27/2024 4:05 PM EDT Program_ID:[id number] Access Code: [email or web address] URL: [email or web address] Date: 03-27-2024 Prepared By: Eliz Sifuentes Program Notes Exercises - Seated Scapular Retraction - 2-3 x daily - 7 x weekly - 2 sets - 15-20 reps - Seated Shoulder Flexion AAROM with Bettina Behind - 1-2 x daily - 7 x weekly - 2-3 sets - 10 reps - Seated Shoulder Scaption AAROM with Bettina at Side - 1-2 x daily - 7 x weekly - 2-3 sets - 10 reps - Seated Shoulder Abduction AAROM with Bettina Behind - 1-2 x daily - 7 x weekly - 2-3 sets - 10 reps * Eliz Sifuentes, PT - 03/27/2024 3:46 PM EDT Images from the original note were not included. Episode Visit Count: 1 Therapist That Will Accept/Oversee The Plan Of Care: Eliz Sifuentes Start of Care Date: 03/27/24 Onset Date: 03/09/24 Plan of Care Certification Date: 03/27/24 Next Certification Due Date: 05/22/24 Patient Identified by Name and Date of : Yes REHABILITATION AND SPORTS THERAPY PHYSICAL THERAPY EVALUATION PLAN OF CARE: Assessment: Mendoza Johnson presents with diagnosis of calcific tendinitis of right shoulder that interferes with reaching behind back, reaching overhead, use hand with arm at shoulder level, driving, working, lifting, recreational activities, physical activities (reaching out and to the side) . She presents with impairments in ADL's, flexibility, independence in exercise, joint mobility, overall function, patient reported outcome measures, posture, range of motion, sensation, soft tissue healing,strength, symptom management, and tissue tenderness. PROMIS (Patient-Reported Outcomes Measurement Information System) scores were reviewed and identified as a rehabilitation concern. Prognosis for therapy is Good due to: within-session changes, current objective clinical presentation, good overallhealth status, acuteness of condition, good support system/ coping skills . She will benefit from skilled therapy services to meet the goals established for this plan of care as noted below. Goals for Episode of Care: created on 03/27/24 through 05/22/24 [place] in home exercise program. Patient will decrease pain rating by 2 points to meet minimal clinical important difference for numeric pain rating scale. Patient will increase active ROM of right shoulder FE to 160 degrees or greater pain free per pt. report to allow pt to to improve performance of ADLs. Patient will increase flexibility of right UT and levator scapulae to WNL to improve ability to maintain proper posture and decrease pain. Perform reaching behind the back and behind the head with decreased report of symptoms/pain in 8 weeks. Patient Goals: restore AROM of R shoulder without limitations due to pain Planned Interventions, Frequency, and Duration: Current Frequency: 1x/week Duration: 8 weeks Total Number of Visits Planned: 8 Planned Treatment Interventions: Gait Training (38226), Self-fci management (40901), Therapeutic activities (34864), Manual therapy (97022), Therapeutic exercise (53470), Neuromuscular re-education (66713) PLAN FOR NEXT VISIT: isometrics Patient demonstrates good understanding of plan of care and treatment. The above goals and plan of care were discussed and agreed upon by patient/family. SUBJECTIVE: for s/p US guided Tenjet minimaly invasive tenotomy R supraspinatus tendon by Dr. Roberson 03/09/24. Pt. had chronic R shoulder pain for 4 years prior. Mentions neck stiffness/tightness as well. Sorenessfollowing procedure, but now sleeping better with less pain. She has only been taking tylenol sincesurgery. 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 Pt. 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 5 points is clinically meaningfully difference Percentiles provide an indication of how the patient's score ranks in relation to the general population. Higher percentile rankings indicate better function/quality of life. 50th percentile is the average of the general population and indicates half of respondents had a worse score. OBJECTIVE MEASURES WITH LEVEL OF FUNCTION: Posture / Alignment Posture: Good Sensation - Upper Extremity UE Light Touch Sensation: Grossly Intact Cervical Spine ROM Cervical ROM : Limitation AROM Cervical Protrusion AROM: Normal Cervical Retraction AROM: Normal Cervical Flexion AROM: Normal Cervical Extension AROM: Normal Cervical Side-Bend Right AROM: Moderate limitation (tightness) Cervical Side-Bend Left AROM: Moderate limitation (tightness) Cervical Rotation Right AROM: Normal Cervical Rotation Left AROM: Normal UE AROM R Shoulder Flex: 91 Degrees (painfree ROM) R Shoulder ABduction: 46 Degrees (painfree ROM) R Shoulder Internal Rotation (Functional): R iliac crest R Shoulder External Rotation (Functional): R ear UE PROM R UE PROM: NT due to pain with PROM UE Flexibility Flexibility: Upper Trapezius, Levator Scapulae R Upper Trapezius Flexibilty Comments: limited R Levator Scapulae Flexibilty Comments: limited UE and Cervical Strength R UE Strength: NT due to pain with AROM L UE Strength: NT due to pain with AROM Education: Education Learning Preferences: Demonstration, Explanation, Performance, Printed Materials Barriers: Acuity of Illness Learning/educational needs: Plan of Care, Home exercise program Education Provided: Yes, see treatment interventions for education provided Education Provided To: Patient Education Mode/Type: Demonstration, Explanation/Discussion, Literature/Printed Materials, Performance Response to Education/Teach Back: States/Identifies, Return Demonstration TREATMENT: PT Treatment Interventions: Therapeutic Exercise, Self-Retirement Management Evaluation Therapeutic Exercise: 1: *Access Code: [email or web address] URL: [email or web address] Date: 03/27/2024 Prepared by: Eliz Schmid Exercises - Seated Scapular Retraction - 2-3 x daily - 7 x weekly - 2 sets - 15-20 reps - 1 hold - Seated Shoulder Flexion AAROM with Bettina Behind - 1-2 x daily - 7 x weekly - 2-3 sets - 10 reps - Seated Shoulder Scaption AAROM with Bettina at Side - 1-2 x daily - 7 x weekly - 2-3sets - 10 reps - Seated Shoulder Abduction AAROM with Bettina Behind - 1-2 x daily - 7 x weekly - 2-3 sets - 10 reps Skilled Intervention: Patient was educated in proper exercise technique and purpose for exercises. Skilled judgment was used in selection of appropriate interventions. Provided written instruction for home exercise program to facilitate proper performance and compliance. Correct performance of therapeutic exercises was facilitated with verbal, visual, and tactile cuing. Educated patient on rationale for performing exercises in regards to decreasing fatigue , increase ease of ADL, and ROM and function . Patient education as noted. Self-Retirement Management: 1: advised progressing AAROM only within pain free ROM 2: discussed that strengthening will take at least 6-8 weeks to make noticable increase 3: discussed precautions 4: bettina issued and bettina set up instructions Skilled Intervention: Skilled judgment in the selection of proper modification for activity of daily living/home management based on clinical presentation, deficits, and needs. Provided written instruction for activities of daily living techniques to facilitate proper performance and compliance. Reviewed patient specific diagnosis in relation to activities of daily living/home management. Activity progression based on professional judgement. Provided written instruction for home program to facilitate proper performance and compliance. Correct performance of home program was facilitated with verbal, visual, and tactile cueing. Billing * Evaluation Low Complexity: 1 Unit Therapeutic Exercise Treatment Minutes: 15 Self-Care/Home Management Treatment Minutes: 10 Skilled Treatment Time Minutes (timed and untimed codes): 45 Total Session Time (minutes): 45 Session Start Time : 1540 Session Stop Time : 1625 Eliz Sifuentes PT [facility] NoteHNO ID: [id number] Author: ELIZ SIFUENTES PT Service: ? Author Type: Physical Therapist Type: Progress Notes Filed: 03/27/2024 16:27 Note Text: Episode Visit Count: 1 Therapist That Will Accept/Oversee The Plan Of Care: Eliz Sifuentes Start of Care Date: 03/27/24 Onset Date: 03/09/24 Plan of Care Certification Date: 03/27/24 Next Certification Due Date: 05/22/24 Patient Identified by Name and Date of : Yes REHABILITATION AND SPORTS THERAPY PHYSICAL THERAPY EVALUATION PLAN OF CARE: Assessment: Mendoza Johnson presents with diagnosis of calcific tendinitis of right shoulder that interferes with reaching behind back, reaching overhead, use hand with arm at shoulder level, driving, working, lifting, recreational activities, physical activities (reaching out and to the side) . She presents with impairments in ADL's, flexibility, independence in exercise, joint mobility, overall function, patient reported outcome measures, posture, range of motion, sensation, soft tissue healing, strength, symptom management, and tissue tenderness. PROMIS? (Patient-Reported Outcomes Measurement Information System) scores were reviewed and identified as a rehabilitation concern. Prognosis for therapy is Good due to: within-session changes, current objective clinical presentation, good overall health status, acuteness of condition, good support system/ coping skills . She will benefit from skilled therapy services to meet the goals established for this plan of care as noted below. Goals for Episode of Care: created on 03/27/24 through 05/22/24 [place] in home exercise program. Patient will decrease pain rating by 2 points to meet minimal clinical important difference for numeric pain rating scale. Patient will increase active ROM of right shoulder FE to 160 degrees or greater pain free per pt. report to allow pt to to improve performance of ADLs. Patient will increase flexibility of right UT and levator scapulae to WNL to improve ability to maintain proper posture and decrease pain. Perform reaching behind the back and behind the head with decreased report of symptoms/pain in 8 weeks. Patient Goals: restore AROM of R shoulder without limitations due to pain Planned Interventions, Frequency, and Duration: Current Frequency: 1x/week Duration: 8 weeks Total Number of Visits Planned: 8 Planned Treatment Interventions: Gait Training (09544), Self-fci management (69830), Therapeutic activities (41848), Manual therapy (88863), Therapeutic exercise (41982), Neuromuscular re-education (39078) PLAN FOR NEXT VISIT: isometrics Patient demonstrates good understanding of plan of care and treatment. The above goals and plan of care were discussed and agreed upon by patient/family. SUBJECTIVE: for s/p US guided Tenjet minimaly invasive tenotomy R supraspinatus tendon by Dr. Roberson 03/09/24. Pt. had chronic R shoulder pain for 4 years prior. Mentions neck stiffness/tightness as well. Soreness following procedure, but now sleeping better with less pain. She has only been taking tylenol since surgery. 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 Pt. 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 5 points is clinically meaningfully difference Percentiles provide an indication of how the patient's score ranks in relation to the general population. Higher percentile rankings indicate better function/quality of life. 50th percentile is the average of the general population and indicates half of respondents had a worse score. OBJECTIVE MEASURES WITH LEVEL OF FUNCTION: Posture / Alignment Posture: Good Sensation - Upper Extremity UE Light Touch Sensation: Grossly Intact Cervical Spine ROM Cervical ROM : Limitation AROM Cervical Protrusion AROM: Normal Cervical Retraction AROM: Normal Cervical Flexion AROM: Normal Cervical Extension AROM: Normal Cervical Side-Bend Right AROM: Moderate l (more content not included)... [facility]06-14-2024 NoteHNO ID: [id number] Author: CHEY PLATA, DO Service: ? Author Type: Physician Type: Progress Notes Filed: 03/09/2024 13:14 Note Text: Minimally Invasive Tenotomy Informed Consent Consent Obtained: Verbal [place] Protocol A moment to CARE was completed. SIGN IN Personnel directly involved with the procedure wore the appropriate PPE. Special Equipment: N/A Patient/Surrogate Stated/Verified: Patient name, Date of , Relevant allergies and Intended procedure TIME OUT Intended patient and procedure match the source document(s). Consent documented and matches the intended procedure. Relevant labs, photos, and/or imaging studies have been reviewed. Correct side/site marked and visible. Medications required for procedure verified. No fire risk assessment and interventions applicable. No implant(s) inserted. 03/09/2024 1:13 PM The procedure site was prepped in the usual sterile fashion. Site: Right supraspinatous tendon Details:Musculoskeletal ultrasound was utilized to successfully localize placement of the injection needle at the appropriate site. Ultrasound images demonstrating local vasculature and demonstrating injection of solution were saved. Anesthetics: 100 mg lidocaine (PF) 10 mg/mL (1 %) Minimally Invasive Tenotomy (TenJet) The treatment area was cleaned and draped in sterile fashion. Using sterile technique, musculoskeletal ultrasound (MSK-US) was used to successfully localize the area of pathology to be treated today. A mervin with a sterile marker was placed on the skin in the area of the intended incision site. Using sterile technique, the area of treatment was visualized under MSK-US where infiltration of anesthetic was utilized with a guiding needle. A separate injection was utilized to create a skin wheal at the incision site to control procedural bleeding. After acceptable regional anesthesia was reached, a 11-blade scalpel was utilized to make a stab incision at the marked treatment site. The Hydrocision TenJet needle device, under constant physician guided MSK-US visualization, was inserted to the area of pathological tissue. Maintaining this visualization, degenerative tissue was debrided and confirmed by the treating physician. Upon satisfaction of removal of the targeted degenerative tissue, the TenJet needle device was removed, compression was applied to the incisional site with sterile gauze. Bleeding was controlled and sterile strips were applied, with occlusive dressing and compression bandage. Patient left the procedure room in satisfactory condition having tolerated the procedure well. Outcome: tolerated well, no immediate complications Post-injection instructions were reviewed with the patient and the patient voiced understanding of these instructions. Estimated blood loss less than 5 mL no complications, Estimated blood loss less than 5 mL. SIGN OUT All instruments, equipment, possible retained foreign bodies accounted for. Post-procedure follow-up management communicated and Plan of Care Visit completed when applicable Large Joint Arthro/Inj: R subacromial bursa Informed Consent Consent Obtained: Verbal [place] Protocol A moment to CARE was completed. SIGN IN Personnel directly involved with the procedure wore the appropriate PPE. Special Equipment: N/A Patient/Surrogate Stated/Verified: Patient name, Date of , Relevant allergies and Intended procedure TIME OUT Intended patient and procedure match the source document(s). Relevant labs, photos, and/or imaging studies have been reviewed. Correct side/site marked and visible. Medications required for procedure verified. No fire risk assessment and interventions applicable. No implant(s) inserted. 03/09/2024 1:14 PM The procedure site was prepped in the usual sterile fashion. Site: R subacromial bursa Details:Musculoskeletal ultrasound was utilized to successfully localize placement of the injection needle at the appropriate site. Ultrasound images demonstrating local vasculature and demonstrating injection of solution were saved. Medications: 60 mg keTORolac 60 mg/2 mL Anesthetics: 2 mL lidocaine (PF) 10 mg/mL (1 %) Outcome: Tolerated well, no immediate complications Post-injection instructions were reviewed with the patient and the patient voiced understanding of these instructions. SIGN OUT All instruments, equipment, possible retained foreign bodies accounted for. Post-procedure follow-up management communicated and Plan of Care Visit completed when applicable Chey Plata [facility]06-14-2024 History of Present illness Narrative* Chey Plata, DO - 03/09/2024 1:13 PM EDTAssociated Order(s): Minimally Invasive Tenotomy; Large Joint Arthro/Inj: R subacromial bursa Post-Procedure Diagnose(s): Calcific tendinitis of right shoulder Minimally Invasive Tenotomy Informed Consent Consent Obtained: Verbal [place] Protocol A moment to CARE was completed. SIGN IN Personnel directly involved with the procedure wore the appropriate PPE. Special Equipment: N/A Patient/Surrogate Stated/Verified: Patient name, Date of , Relevant allergies and Intended procedure TIME OUT Intended patient and procedure match the source document(s). Consent documented and matches the intended procedure. Relevant labs, photos, and/or imaging studies have been reviewed. Correct side/site marked and visible. Medications required for procedure verified. No fire risk assessment and interventions applicable. No implant(s) inserted. 03/09/2024 1:13 PM The procedure site was prepped in the usual sterile fashion. Site: Right supraspinatous tendon Details:Musculoskeletal ultrasound was utilized to successfully localize placement of the injectionneedle at the appropriate site. Ultrasound images demonstrating local vasculature and demonstratinginjection of solution were saved. Anesthetics: 100 mg lidocaine (PF) 10 mg/mL (1 %) Minimally Invasive Tenotomy (TenJet) The treatment area was cleaned and draped in sterile fashion. Using sterile technique, musculoskeletal ultrasound (MSK-US) was used to successfully localize the area of pathology to be treated today.A mervin with a sterile marker was placed on the skin in the area of the intended incision site. Using sterile technique, the area of treatment was visualized under MSK-US where infiltration of anesthetic was utilized with a guiding needle. A separate injection was utilized to create a skin wheal at the incision site to control procedural bleeding. After acceptable regional anesthesia was reached, a 11-blade scalpel was utilized to make a stab incision at the marked treatment site. The Hydrocision TenJet needle device, under constant physician guided MSK-US visualization, was inserted to the area of pathological tissue. Maintaining this visualization, degenerative tissue was debrided and confirmed by the treating physician. Upon satisfaction of removal of the targeted degenerative tissue, the TenJet needle device was removed, compression was applied to the incisional site with sterile gauze. Bleeding was controlled and sterile strips were applied, with occlusive dressing and compression bandage. Patient left the procedure room in satisfactory condition having tolerated the procedure well. Outcome: tolerated well, no immediate complications Post-injection instructions were reviewed with the patient and the patient voiced understanding of these instructions. Estimated blood loss less than 5 mL no complications, Estimated blood loss less than 5 mL. SIGN OUT All instruments, equipment, possible retained foreign bodies accounted for. Post-procedure follow-up management communicated and Plan of Care Visit completed when applicable Large Joint Arthro/Inj: R subacromial bursa Informed Consent Consent Obtained: Verbal [place] Protocol A moment to CARE was completed. SIGN IN Personnel directly involved with the procedure wore the appropriate PPE. Special Equipment: N/A Patient/Surrogate Stated/Verified: Patient name, Date of , Relevant allergies and Intended procedure TIME OUT Intended patient and procedure match the source document(s). Relevant labs, photos, and/or imaging studies have been reviewed. Correct side/site marked and visible. Medications required for procedure verified. No fire risk assessment and interventions applicable. No implant(s) inserted. 03/09/2024 1:14 PM The procedure site was prepped in the usual sterile fashion. Site: R subacromial bursa Details:Musculoskeletal ultrasound was utilized to successfully localize placement of the injectionneedle at the appropriate site. Ultrasound images demonstrating local vasculature and demonstratinginjection of solution were saved. Medications: 60 mg keTORolac 60 mg/2 mL Anesthetics: 2 mL lidocaine (PF) 10 mg/mL (1 %) Outcome: Tolerated well, no immediate complications Post-injection instructions were reviewed with the patient and the patient voiced understanding of these instructions. SIGN OUT All instruments, equipment, possible retained foreign bodies accounted for. Post-procedure follow-up management communicated and Plan of Care Visit completed when applicable Chey Plata DO documented in this encounterOhio[facility] Instructions* Patient Instructions* Chey Plata DO - 03/09/2024 9:24 AM EDT Follow-up with me in 6 weeks, can be virtual Follow-up with PT in 2-3 weeks documented in this encounterOhio[facility]05-29-2024 Telephone encounter Note * Telephone Encounter - Chey Plata DO - 02/22/2024 4:46 PM EDT This was discussed, and I did not send the medication. I have now sent the Rx to the pharmacy. Chey Plata DO [facility]05-29[facility] Miscellaneous Notes* Telephone Encounter - Chey Plata DO - 02/22/2024 4:46 PM EDT This was discussed, and I did not send the medication. I have now sent the Rx to the pharmacy. Chey Plata DO * Telephone Encounter - Kaila Duffy - 02/22/2024 4:28 PM EDT Mendoza is calling Chey Plata DO today with concern regarding medication. Patient was under the impression provider was going to prescribe an oral anti- inflammatory, possibly voltaren but nothing was called in and she didn't seen anything on the notes on mychart. Please advise and contact patientwith an update. Pharmacy on file is confirmed. Patient has been identified by name and birthdate. Person calling: self Call patient at: at home [phone] (home) [phone] (cell) Was an appointment scheduled: No Closing statement: Symptom Call: Thank you for calling [facility], your call is very important. A nurse will call in approximately 2-4 hours during business hours. If this is an emergency, please contact 911. Kaila العلي documented in this encounterOhiohealth [facility]05-29-2024 Telephone encounter Note * Telephone Encounter - Kaila Duffy - 02/22/2024 4:28 PM EDT Mendoza is calling Chey Plata DO today with concern regarding medication. Patient was under the impression provider was going to prescribe an oral anti- inflammatory, possibly voltaren but nothing was called in and she didn't seen anything on the notes on [facility]. Please advise and contact patientwith an update. Pharmacy on file is confirmed. Patient has been identified by name and birthdate. Person calling: self Call patient at: at home [phone] (home) [phone] (cell) Was an appointment scheduled: No Closing statement: Symptom Call: Thank you for calling [facility], your call is very important. A nurse will call in approximately 2-4 hours during business hours. If this is an emergency, please contact 911. Kaila العلي [facility]05-29-[facility]24 NoteHNO ID: [id number] Author: CHEY PLATA DO Service: ? Author Type: Physician Type: Progress Notes Filed: 02/22/2024 13:09 Note Text: Mendoza Johnson is a patient of Trent Velazquez DO. CHIEF COMPLAINT: eMndoza Johnson is a 48 year old female who presents today for new evaluation of right shoulder. HISTORY OF PRESENT ILLNESS: PAIN EVALUATION 02/22/2024 0836 02/22/2024 1036 Pain Level: 8 5 Pain Location: Shoulder-Right Shoulder-Right Description: Aching;Numbness;Radiating;Sharp;Throbbing Aching;Shooting;Radiating;Numbness;Tingling;Pressure Duration Amount of Time: 3 3 Duration Units: Weeks Weeks Frequency: Continuous Continuous Intervention/Comfort measure: Medication;Cold Exercise;Medication Comments: -- cortisone injection 2021 Location of pain: right shoulder pain Was there an injury that started this? No Any numbness or tingling? No She notes that this problem exhibits aggravating factors of Overhead activities, Reaching backwards, and Sleeping on the shoulder. She notes that this problem exhibits alleviating factors of Rest and avoidance of aggravating activities. Night Pain: Yes PREVIOUS TREATMENTS: NSAIDs: Yes Injections: Yes, CSI Surgeries: No Physical Therapy: Yes PHYSICAL EXAMINATION: SHOULDER EXAM Flexion: decreased active, normal passive Abduction: decreased active,normal passive External rotation: normal Sonja Test / Empty Can Test (supraspinatus): positive for pain Resisted lateral rotation test (infraspinatus): positive for pain Belly press test (subscapualris): normal examination with no pain or weakness elicited IMAGING: Final results and radiologist's interpretation, available in the [facility] health record. Images were reviewed with the patient/family members in the office today. My personal interpretation of the performed imaging is calcific rotator cuff CLINICAL IMPRESSION / ASSESSMENT: (M75.31) Calcific tendinitis of right shoulder (primary encounter diagnosis) RECOMMENDATION / PLAN: Discussed that she has a combination of right rotator cuff calcific tendinopathy including tendinosis present. Physical examination is consistent with diagnosis as stated above. Given chronicity of symptoms and patient noted sub optimal response to other standard treatment recommendations, discussed options with patient including bracing, surgical approach, exercise and physical therapy prescription, injections including orthobiologics, medication (both oral and topicals), minimally invasive tenotomy, PRP and tenotomy. We discussed the role of minimally invasive percutaneous tenotomy Tenjet in detail today for treatment of the patients right rotator cuff calcific tendinopathy . Patient has voiced understanding of the indications for the procedure, pre- and post-procedure recovery with expected rehabilitation time, the risk and benefit of the minimally invasive percutaneous tenotomy and the expected outcomes. After discussion she understands the complexity of her condition and possibility of further surgical intervention if refractory to minimally invasive tenotomy. At this time, the patient has agreed to proceed with scheduling a date for the procedure. The patient will be enrolled in shoulder health care marketing manager to assist in preparation for procedure. Verbal health education was given to patient. Patient verbalizes understanding and agrees with the treatment plan as detailed above. Chey Plata [facility]05-29-2024 History of Present illness Narrative* Chey Plata DO - 02/22/2024 10:45 AM EDT Images from the original note were not included. Mendoza Johnson is a patient of Trent Velazquez DO. CHIEF COMPLAINT: Mendoza Johnson is a 48 year old female who presents today for new evaluation of right shoulder. HISTORY OF PRESENT ILLNESS: PAIN EVALUATION 02/22/2024 0836 02/22/2024 1036 Pain Level: 8 5 Pain Location: Shoulder-Right Shoulder-Right Description: Aching;Numbness;Radiating;Sharp;Throbbing Aching;Shooting;Radiating;Numbness;Tingling;Pressure Duration Amount of Time: 3 3 Duration Units: Weeks Weeks Frequency: Continuous Continuous Intervention/Comfort measure: Medication;Cold Exercise;Medication Comments: -- cortisone injection 2021 Location of pain: right shoulder pain Was there an injury that started this? No Any numbness or tingling? No She notes that this problem exhibits aggravating factors of Overhead activities, Reaching backwards, and Sleeping on the shoulder. She notes that this problem exhibits alleviating factors of Rest and avoidance of aggravating activities. Night Pain: Yes PREVIOUS TREATMENTS: NSAIDs: Yes Injections: Yes, CSI Surgeries: No Physical Therapy: Yes PHYSICAL EXAMINATION: SHOULDER EXAM Flexion: decreased active, normal passive Abduction: decreased active,normal passive External rotation: normal Sonja Test / Empty Can Test (supraspinatus): positive for pain Resisted lateral rotation test (infraspinatus): positive for pain Belly press test (subscapualris): normal examination with no pain or weakness elicited IMAGING: Final results and radiologist's interpretation, available in the [facility] health record. Images were reviewed with the patient/family members in the office today. My personal interpretation of the performed imaging is calcific rotator cuff CLINICAL IMPRESSION / ASSESSMENT: (M75.31) Calcific tendinitis of right shoulder (primary encounter diagnosis) RECOMMENDATION / PLAN: Discussed that she has a combination of right rotator cuff calcific tendinopathy including tendinosis present. Physical examination is consistent with diagnosis as stated above. Given chronicity of symptoms and patient noted sub optimal response to other standard treatment recommendations, discussed options with patient including bracing, surgical approach, exercise and physical therapy prescription, injections including orthobiologics, medication (both oral and topicals), minimally invasive tenotomy, PRP and tenotomy. We discussed the role of minimally invasive percutaneous tenotomy Tenjet in detail today for treatment of the patients right rotator cuff calcific tendinopathy . Patient has voiced understanding of the indications for the procedure, pre- and post-procedure recovery with expected rehabilitation time, the risk and benefit of the minimally invasive percutaneous tenotomy and the expected outcomes. After discussion she understands the complexity of her condition and possibility of further surgical intervention if refractory to minimally invasive tenotomy. At this time, the patient has agreed to proceed with scheduling a date for the procedure. The patient will be enrolled in shoulder health care marketing manager to assist in preparation for procedure. Verbal health education was given to patient. Patient verbalizes understanding and agrees with the treatment plan as detailed above. Chey Plata DO documented in this encounterOhio[facility]05-15-2024 Telephone encounter Note * Telephone Encounter - Shala Hoffman - 02/08/2024 1:09 PM EDT Patient has been scheduled for their MSK US exam on 02/23/24 : 2:25 PM at MAIN. [facility] Miscellaneous Notes* Telephone Encounter - Shala Hoffman - 02/08/2024 1:09 PM EDT Patient has been scheduled for their MSK US exam on 02/23/24 : 2:25 PM at MAIN. * Telephone Encounter - Garfield Calvin PCNA - 02/08/2024 12:29 PM EDT Visit Type: ANY MSK Visit Length: 45, 50 OR 60 MINUTES Order Name/Protocol: US SHOULDER RT; EVAL LOCATION+SIZE OF CALCIFIC DEPOSITS NOTED ON XR Preferred Provider: N/A Comment: Please ask if the patient has ever had any prior surgery to their RT shoulder. If so, upgrade the visit type to an MSK1 and notate the surgical hx in the Appointment Note. Location: Depending on the surgical hx, this patient can have this exam performed at any of our three locations. Slot held: N/A documented in this encounterOhiohealth [facility]05-15-2024 Telephone encounter Note * Telephone Encounter - Eliel Natarajan - 02/08/2024 12:59 PM EDT Patient returned phone call and appointment has been scheduled with Dr. Plata on 02/22/24. [facility] Miscellaneous Notes* Telephone Encounter - Eliel Natarajan - 02/08/2024 12:59 PM EDT Patient returned phone call and appointment has been scheduled with Dr. Plata on 02/22/24. * Telephone Encounter - Eliel Natarajan - 02/08/2024 12:00 PM EDT Attempted to contact patient to schedule an appointment with Dr. Plata or Dr. Fregoso to discuss treatment options for right shoulder. Left voicemail with my direct phone number. documented in this encounterOhiohealth [facility]05-15-2024 Telephone encounter Note * Telephone Encounter - Garfield Calvin PCNA - 02/08/2024 12:29 PM EDT Visit Type: ANY MSK Visit Length: 45, 50 OR 60 MINUTES Order Name/Protocol: US SHOULDER RT; EVAL LOCATION+SIZE OF CALCIFIC DEPOSITS NOTED ON XR Preferred Provider: N/A Comment: Please ask if the patient has ever had any prior surgery to their RT shoulder. If so, upgrade the visit type to an MSK1 and notate the surgical hx in the Appointment Note. Location: Depending on the surgical hx, this patient can have this exam performed at any of our three locations. Slot held: N/A [facility] Telephone encounter Note* Telephone Encounter - Eliel Natarajan - 02/08/2024 12:00 PM EDT Attempted to contact patient to schedule an appointment with Dr. Plata or Dr. Fregoso to discuss treatment options for right shoulder. Left voicemail with my direct phone number. [facility] NoteHNO ID: [id number] Author: BENJAMIN GAGNON MD Service: ? Author Type: Physician Type: Progress Notes Filed: 02/08/2024 11:49 Note Text: [facility] Department of Orthopedics Benjamin Gagnon MD FACS 48-year-old female here today regarding her right shoulder. In the fall 2019 she was seen by Diana Gore for diagnosis of calcific tendinitis of the right rotator cuff. She received a cortisone injection after therapy and did get better. She said she was doing acceptably although she still has some discomfort until Tuesday when she went to reach for something and felt a significantly sharp pain. Since that time she has had a lot of discomfort which was intense enough to go to the emergency department in [place] Current Outpatient Medications Medication Sig oxyCODONE-acetaminophen (PERCOCET) 5-325 mg tablet escitalopram oxalate (LEXAPRO) 10 mg tablet Take 1 tablet by mouth once daily. lisinopril (ZESTRIL) 20 mg tablet Take 1 tablet by mouth once daily. levonorgestrel (MIRENA) 20 mcg/24 hours (8 yrs) 52 mg IUD 1 Each by INTRAUTERINE route one time only. Ibuprofen 200 mg cap Take by mouth every 6 hours as needed. cetirizine (ZYRTEC) 10 mg tablet Take 1 tablet by mouth once daily. methylPREDNISolone (MEDROL, SEAN,) 4 mg Dose-Pack As Instructed per package No current facility-administered medications for this visit. 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) Inflammatory Arthropathy Seasonal Allergies Encounter for Gynecological Examination Without Abnormal Finding Encounter for Screening for Diabetes Mellitus Add (Attention Deficit Disorder) Dyslipidemia Well Adult Exam Viral Warts Acute Pain of Right Shoulder Sleep-Related Bruxism Myofascial Pain With Referred Pain Hypertension, Essential PAST SURGICAL HISTORY Procedure Laterality Date COLONOSCOPY FLX DX W/COLLJ SPEC WHEN PFRMD 06/07/2014 repeat 10 yrs INSERT INTRAUTERINE DEVICE 08/05/2022 Mirena LAPAROSCOPIC APPENDECTOMY 06/17/2016 TONSILLECTOMY PRIMARY/SECONDARY Tonsillectomy alone PAST MEDICAL HISTORY Diagnosis Date ADD (attention deficit disorder) 03/13/2016 was on medication till about mid 30's. Adderll once a day. Anal fissure 05/07/2009 Appendicitis Dyslipidemia 07/14/2016 Hypertension, essential 07/27/2022 Inflammatory arthropathy 03/13/2016 Markers elevated but Rheum said negative for Rheumatoid arthritis. 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 Wang FAMILY HISTORY Problem Relation Age of Onset Arthritis Mother VANESSA Hypertension Mother Arthritis Father VANESSA Diabetes Father Melanoma Father Breast Cancer Maternal Aunt Diabetes Paternal Grandfather No Known Problems Brother Alzheimer's Disease Maternal Grandfather Arthritis Maternal Grandmother Cancer Paternal Grandmother Social History Tobacco Use Smoking status: Never Smokeless tobacco: Never Vaping Use Vaping Use: Never used Substance Use Topics Alcohol use: Yes Alcohol/week: 4.0 standard drinks of alcohol Types: 4 Cans of Beer (12oz) per week Comment: occassionally Drug use: No ALLERGIES Allergen Reactions Tree And Shrub Poll* Other: See Comments seasonal REVIEW OF SYSTEMS General: NO fever, NO chills, NO night sweats Constitutional:NO recent unwanted weight loss, NO excessive weight Skin: NO rashes, NO chronic skin condition Head: NO seizures, NO headaches, NO dizziness Respiratory: NO cough Cardiovascular: NO chest pain Gastrointestinal: NO nausea, NO vomiting, NO abdominal painEndocrine: NO thyroid problems, NO heat intolerance Musculoskeletal: see HPI Neurologic: no numbness or tingling in extremities Examination: 48-year-old female no acute distress. Alert and oriented x 3. 5 feet 6 inches tall 260 pounds. Patient has no ability to actively move her right arm or hip. Passively I can abduct her to 40 degrees with a lot of discomfort external rotation is not possible passively with the arm rested at her side. Difficult to assess whether this is due to discomfort or true stiffness. Radiologic review: X-rays ordered by me into my interpretation shows an expanded area of calcific tendinitis which is quite large. No evidence for arthritis. Impression: Exacerbation and worsening of calcific tendinitis of the shoulder. Given the level of the patient's discomfort as well as an inability to determine if this stiffness is due to pain or due to true adhesive capsulitis, I want to focus on the calcific deposit. Patient was prescribed a Medrol pack to improve her discomfort but I think is important to proceed to a Tenjet type of procedure to remove the calcific deposit. We are going to order a musculoskeletal ultrasound document the location and then refer the patient to either Dr. (more content not included)...[facility]05-15-2024 History of Present illness Narrative* Benjamin Gagnon MD - 02/08/2024 11:43 AM EDT [facility] Department of Orthopedics Benjamin Gagnon MD FACS 48-year-old female here today regarding her right shoulder. In the fall 2019 she was seen by Jalil Gore for diagnosis of calcific tendinitis of the right rotator cuff. She received a cortisone injection after therapy and did get better. She said she was doing acceptably although she still has some discomfort until Tuesday when she went to reach for something and felt a significantly sharp pain. Since that time she has had a lot of discomfort which was intense enough to go to the emergency department in [place] Current Outpatient Medications Medication Sig oxyCODONE-acetaminophen (PERCOCET) 5-325 mg tablet escitalopram oxalate (LEXAPRO) 10 mg tablet Take 1 tablet by mouth once daily. lisinopril (ZESTRIL) 20 mg tablet Take 1 tablet by mouth once daily. levonorgestrel (MIRENA) 20 mcg/24 hours (8 yrs) 52 mg IUD 1 Each by INTRAUTERINE route one time only. Ibuprofen 200 mg cap Take by mouth every 6 hours as needed. cetirizine (ZYRTEC) 10 mg tablet Take 1 tablet by mouth once daily. methylPREDNISolone (MEDROL, SEAN,) 4 mg Dose-Pack As Instructed per package No current facility-administered medications for this visit. 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) Inflammatory Arthropathy Seasonal Allergies Encounter for Gynecological Examination Without Abnormal Finding Encounter for Screening for Diabetes Mellitus Add (Attention Deficit Disorder) Dyslipidemia Well Adult Exam Viral Warts Acute Pain of Right Shoulder Sleep-Related Bruxism Myofascial Pain With Referred Pain Hypertension, Essential PAST SURGICAL HISTORY Procedure Laterality Date COLONOSCOPY FLX DX W/COLLJ SPEC WHEN PFRMD 06/07/2014 repeat 10 yrs INSERT INTRAUTERINE DEVICE 08/05/2022 Mirena LAPAROSCOPIC APPENDECTOMY 06/17/2016 TONSILLECTOMY PRIMARY/SECONDARY <AGE 12 1985 Tonsillectomy alone PAST MEDICAL HISTORY Diagnosis Date ADD (attention deficit disorder) 03/13/2016 was on medication till about mid 30's. Adderll once a day. Anal fissure 05/07/2009 Appendicitis Dyslipidemia 07/14/2016 Hypertension, essential 07/27/2022 Inflammatory arthropathy 03/13/2016 Markers elevated but Rheum said negative for Rheumatoid arthritis. 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 Wang FAMILY HISTORY Problem Relation Age of Onset Arthritis Mother VANESSA Hypertension Mother Arthritis Father VANESSA Diabetes Father Melanoma Father Breast Cancer Maternal Aunt Diabetes Paternal Grandfather No Known Problems Brother Alzheimer's Disease Maternal Grandfather Arthritis Maternal Grandmother Cancer Paternal Grandmother Social History Tobacco Use Smoking status: Never Smokeless tobacco: Never Vaping Use Vaping Use: Never used Substance Use Topics Alcohol use: Yes Alcohol/week: 4.0 standard drinks of alcohol Types: 4 Cans of Beer (12oz) per week Comment: occassionally Drug use: No ALLERGIES Allergen Reactions Tree And Shrub Poll* Other: See Comments seasonal REVIEW OF SYSTEMS General: NO fever, NO chills, NO night sweats Constitutional:NO recent unwanted weight loss, NO excessive weight Skin: NO rashes, NO chronic skin condition Head: NO seizures, NO headaches, NO dizziness Respiratory: NO cough Cardiovascular: NO chest pain Gastrointestinal: NO nausea, NO vomiting, NO abdominal painEndocrine: NO thyroid problems, NO heat intolerance Musculoskeletal: see HPI Neurologic: no numbness or tingling in extremities Examination: 48-year-old female no acute distress. Alert and oriented x 3. 5 feet 6 inches tall 260pounds. Patient has no ability to actively move her right arm or hip. Passively I can abduct her to40 degrees with a lot of discomfort external rotation is not possible passively with the arm restedat her side. Difficult to assess whether this is due to discomfort or true stiffness. Radiologic review: X-rays ordered by me into my interpretation shows an expanded area of calcific tendinitis which is quite large. No evidence for arthritis. Impression: Exacerbation and worsening of calcific tendinitis of the shoulder. Given the level of the patient's discomfort as well as an inability to determine if this stiffness is due to pain or dueto true adhesive capsulitis, I want to focus on the calcific deposit. Patient was prescribed a Medrol pack to improve her discomfort but I think is important to proceed to a Tenjet type of procedure to remove the calcific deposit. We are going to order a musculoskeletal ultrasound document the location and then refer the patient to either Dr. Fregoso or Dr. Plata in the [place] area. At the conclusion of the office visit, the patient was asked if they had any questions regarding the diagnosis or care. Also, ample time was provided for the patient to ask any questions regarding the diagnosis therefore plan of care. All the patient's questions if asked were answered to their satisfaction. This note was partially generated using [employer] voice recognition system and as such may contain grammatical or word errors Benjamin Gagnon MD documented in this encounterOhio[facility]05-[facility] History of Present illness Narrative* Lizz Dorsey, RT(R) - 02/08/2024 10:00 AM EDT Radiology Service Progress Note PATIENT NAME: Mendoza Johnson DATE OF SERVICE: February 08, 2024 TIME: 10:11 AM PATIENT IDENTITY VERIFICATION COMPLETED USING TWO (2) IDENTIFIERS: Name and Date of confirmedby patient verbally. FALL SCREENING: Has the patient had 2 falls in the last year or 1 fall with injury or currently using an Ambulatory Assistive Device (Walker, Cane, Wheelchair, Crutches, etc.)? No PATIENT GENDER DATA: Female. status: : No status: NO. PATIENT RELEVANT IMPLANT DATA REVIEWED: Not Applicable PATIENT PRESENTS WITH AN IMPLANTABLE OR ATTACHED HOT PLATE [employer] PRESS OPERATOR: No RADIOLOGY DEPARTMENT: General X-ray: Exam(s) Completed: Upper Extremity X- Ray(s): Shoulder, AP / TRUE AP / AXILLARY right PERIPHERAL IV DATA: Not applicable SIGNED BY: RT Jenifer(Jacinto) February 08, 2024 10:11 AM documented in this encounterOhiohealth [facility]05-[facility]24 NoteHNO ID: [id number] Author: LIZZ DORSEY RT(R) Service: ? Author Type: City Controller Type: Progress Notes Filed: 02/08/2024 10:12 Note Text: Radiology Service Progress Note PATIENT NAME: Mendoza Johnson DATE OF SERVICE: February 08, 2024 TIME: 10:11 AM PATIENT IDENTITY VERIFICATION COMPLETED USING TWO (2) IDENTIFIERS: Name and Date of confirmed by patient verbally. FALL SCREENING: Has the patient had 2 falls in the last year or 1 fall with injury or currently using an Ambulatory Assistive Device (Walker, Cane, Wheelchair, Crutches, etc.)? No PATIENT GENDER DATA: Female. status: : No status: NO. PATIENT RELEVANT IMPLANT DATA REVIEWED: Not Applicable PATIENT PRESENTS WITH AN IMPLANTABLE OR ATTACHED HOT PLATE PLYWOOD PRESS OPERATOR: No RADIOLOGY DEPARTMENT: General X-ray: Exam(s) Completed: Upper Extremity X-Ray(s): Shoulder, AP / TRUE AP / AXILLARY right PERIPHERAL IV DATA: Not applicable SIGNED BY: RT Jenifer(Jacinto) February 08, 2024 10:11 [facility]03-28-2024 History of Present illness Narrative* Ghulam Smith RT(R) - 12/22/2023 9:20 AM EDT Radiology Service Progress Note PATIENT NAME: Mendoza Johnson DATE OF SERVICE: December 22, 2023 TIME: 9:20 AM PATIENT IDENTITY VERIFICATION COMPLETED USING TWO (2) IDENTIFIERS: Name and Date of confirmedby patient verbally. FALL SCREENING: Has the patient had 2 falls in the last year or 1 fall with injury or currently using an Ambulatory Assistive Device (Walker, Cane, Wheelchair, Crutches, etc.)? No PATIENT GENDER DATA: Female. status: : No status: NO. PATIENT RELEVANT IMPLANT DATA REVIEWED: Not Applicable PATIENT PRESENTS WITH AN IMPLANTABLE OR ATTACHED HOT PLATE PLYWOOD PRESS OPERATOR: No RADIOLOGY DEPARTMENT: General X-ray: Exam(s) Completed: Chest X-Ray PERIPHERAL IV DATA: Not applicable SIGNED BY: RT Law(R) December 22, 2023 9:20 AM [facility] NoteHNO ID: [id number] Author: GHULAM SMITH RT(R) Service: Radiology Author Type: Technologist Type: Progress Notes Filed: 12/22/2023 09:26 Note Text: Radiology Service Progress Note PATIENT NAME: Mendoza Johnson DATE OF SERVICE: December 22, 2023 TIME: 9:20 AM PATIENT IDENTITY VERIFICATION COMPLETED USING TWO (2) IDENTIFIERS: Name and Date of confirmed by patient verbally. FALL SCREENING: Has the patient had 2 falls in the last year or 1 fall with injury or currently using an Ambulatory Assistive Device (Walker, Cane, Wheelchair, Crutches, etc.)? No PATIENT GENDER DATA: Female. status: : No status: NO. PATIENT RELEVANT IMPLANT DATA REVIEWED: Not Applicable PATIENT PRESENTS WITH AN IMPLANTABLE OR ATTACHED HOT PLATE PLYWOOD PRESS OPERATOR: No RADIOLOGY DEPARTMENT: General X-ray: Exam(s) Completed: Chest X-Ray PERIPHERAL IV DATA: Not applicable SIGNED BY: RT Law(Jacinto) December 22, 2023 9:20 [facility]03-28-2024 NoteHNO ID: [id number] Author: JANNETH RACHEL APRN.TYPE PHOTOGRAPHY SUPERVISOR Service: ? Author Type: Nurse Practitioner Type: Progress Notes Filed: 12/22/2023 09:59 Note Text: CC: Patient presents with: Ear Pain: Chest congestion, sore throat x2days Patient has had chest congestion with pleuritic chest pain, sore throat, and ear discomfort for past two days. Reports was sick as well but not this bad HPI: Mendoza Johnson is a 48 year old female who presents to the office with complaint of chest congestion, cough, nonproductive, sore throat, and ear symptoms for 2 days. Symptoms are worsening Associated symptoms includes sore throat, nasal congestion, body aches, ear pain, cough, and dyspnea. Denies wheezing, nausea, vomiting , and diarrhea. Treatments tried include OTC cold medicine with minor relief of symptoms. Sick contacts: yes. History of asthma, frequent episodes of bronchitis, chronic bronchitis, bronchiectasis or COPD: No Smoker: No Seasonal/environmental allergies: Yes The ROS is otherwise negative. The patient's pmh, medications, allergies, and past visits are reviewed. PHYSICAL EXAM: BP 120/62 Pulse 68 Temp 37.2 ?C (98.9 ?F) Resp 16 Wt 98.2 kg (216 lb 7.9 oz) LMP 08/02/2022 (Approximate) SpO2 97% BMI 34.79 kg/m? General appearance: tired/ill appearing, alert, cooperative, pleasant, in no acute distress Head: Normocephalic Eyes: PERRLA, EOM's intact, conjunctiva pink and moist, no icterus, sclera white, non-injected Ears: Right ear: External ear/canal- Normal, TM - dull. Left ear: External ear/canal- Normal, TM - dull Nose: clear. Oropharynx:moist without lesions, mild erythema, without exudates present Neck:supple and no adenopathy Heart: Negative. RRR without obvious murmur, gallop, or rubs. No ectopy. Lungs: clear to auscultation, without rales or wheeze, good air exchange PAST MEDICAL HISTORY Diagnosis Date ADD (attention deficit disorder) 03/13/2016 was on medication till about mid 30's. Adderll once a day. Anal fissure 05/07/2009 Appendicitis Dyslipidemia 07/14/2016 Hypertension, essential 07/27/2022 Inflammatory arthropathy 03/13/2016 Markers elevated but Rheum said negative for Rheumatoid arthritis. 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 Wang PAST SURGICAL HISTORY Procedure Laterality Date COLONOSCOPY FLX DX W/COLLJ SPEC WHEN PFRMD 06/07/2014 repeat 10 yrs INSERT INTRAUTERINE DEVICE 08/05/2022 Mirena LAPAROSCOPIC APPENDECTOMY 06/17/2016 TONSILLECTOMY PRIMARY/SECONDARY Tonsillectomy alone ALLERGIES [employer] MEDICATIONS escitalopram oxalate (LEXAPRO) 10 mg tablet Take 1 tablet by mouth once daily. lisinopril (ZESTRIL) 20 mg tablet Take 1 tablet by mouth once daily. levonorgestrel (MIRENA) 20 mcg/24 hours (8 yrs) 52 mg IUD 1 Each by INTRAUTERINE route one time only. Ibuprofen 200 mg cap Take by mouth every 6 hours as needed. cetirizine (ZYRTEC) 10 mg tablet Take 1 tablet by mouth once daily. FAMILY HISTORY Problem Relation Age of Onset Arthritis Mother VANESSA Hypertension Mother Arthritis Father VANESSA Diabetes Father Melanoma Father Breast Cancer Maternal Aunt Diabetes Paternal Grandfather No Known Problems Brother Alzheimer's Disease Maternal Grandfather Arthritis Maternal Grandmother Cancer Paternal Grandmother Social History Tobacco Use Smoking status: Never Smokeless tobacco: Never Vaping Use Vaping Use: Never used Substance Use Topics Alcohol use: Yes Alcohol/week: 4.0 standard drinks of alcohol Types: 4 Cans of Beer (12oz) per week Comment: occassionally Drug use: No DATA REVIEWED: Most recent labs and imaging results. ASSESSMENT/PLAN: 1. Sore throat - ICD9: 462, ICD10: J02.9 (primary diagnosis) - suspect viral - Rapid Strep negative in the office today - Discussed supportive care treatment with fluids, rest and analgesia as needed - COVID AND INFLUENZA A/B AND RSV NAAT, ROUTINE - STREP A MOLECULAR (POC) - negative 2. Acute cough - ICD9: 786.2, ICD10: R05.1 - XR CHEST 2V FRONTAL/LAT - negative - BENZONATATE 100 MG CAPSULE - FLUTICASONE PROPIONATE 50 MCG/ACTUATION NASAL SPRAY,SUSPENSION Prescription instructions reviewed with patient. Potential red flag symptoms discussed with the patient. Reviewed appropriate action plan to take if red flag symptoms occur. Patient agreeable to treatment plan. Tracie Giordano Supervising provider was present and guided the care of the patient for the entire session on this date. All documentation was reviewed and agreed upon. Janneth Rachel APRN.[facility]11-29-2023 Discharge summary Author Griselda Stewart [facility] August 24, 2023 11:05pm Note Date/Time August 24, 2023 8:58pm [facility] Medical Records Department [address] [place] [address] Emergency Department Summary 08/24/23 MR#: [id number] Acct: [id number] Name: MENDOZA JOHNSON Rep #:[id number] : 1975 48 From: Griselda Stewart DO PCP: Dr. Trent Velazquez DO Status:REG E R Location: ED HPI HPI - GI History of Present Illness Chief Complaint: Abd Pain Detail of Chief Complaint: Abdominal pain Informant: patient Narrative Narrative: Patient presents to the emergency department with complaint of abdominal pain x3days. Patient has had some nausea but no vomiting. She denies fever but she had some chills. She describes the pain location as diffuse but also some discomfort in her left lower back. She denies urinary symptoms. She denies dysuria or urgency or frequency. No history of kidney stones. No history of diverticulitis. She has had prior appendectomy. Currently rates her pain a 6 or 7 out of 10. [facility] Medical History (Updated 08/24/23 @ 23:[address] Griselda Stewart DO) Hypertension Osteoporosis Home Medications Cetirizine Hcl [Zyrtec] 10 mg PO DAILY 06/15/16 [History Last Taken 06/15/16 09:00] escitalopram oxalate 10 mg tablet 10 mg PO DAILY 04/28/23 [History Last Taken Unknown] lisinopril 20 mg tablet 20 mg PO DAILY 04/28/23 [History Last Taken Unknown] dicyclomine 10 mg capsule 20 mg (2 x 10 mg) PO TIDAC #20 CAPSULES 08/24/23 [Rx Last Taken Unknown] hydrocodone-acetaminophen 5-325mg 5mg-325mg 1 tab PO Q4H PRN PRN Pain 2 days #10TABLETS 08/24/23 [Rx Last Taken Unknown] ondansetron 4 mg disintegrating tablet 4 mg PO Q8H PRN PRN Nausea #10 tabs 08/24/23 [Rx Last Taken Unknown] Allergy/AdvReac Type Severity Reaction Status Date / Time No Known Allergies Allergy Verified 08/24/23 20:46 Surgical History History of appendectomy Social History (Updated 04/28/23 @ 07:[address] Bo Young MD) household members: spouse Smoking Status: Never smoker alcohol intake: current alcohol intake frequency: holidays/special occasions only substance use type: does not use ROS ROS ED Review of Systems ROS Unobtainable: other Constitutional Constitutional ED: Reports lethargy; Denies chills, fever(s), sweats or weight loss Eyes Eyes: Denies blurry vision, change in vision or diplopia ENT ENT ED: Denies rhinorrhea or sore throat Cardiovascular Cardiovascular: Denies chest pain, orthopnea or racing heartbeat Respiratory/Chest Respiratory/Chest: Denies cough, dyspnea, dyspnea on exertion, orthopnea or sputum Gastrointestinal Gastrointestinal: Reports abdominal pain and nausea; Denies diarrhea or vomiting Genitourinary Genitourinary ED: Denies dysuria, hematuria or urinary frequency Musculoskeletal Musculoskeletal: Denies arthralgias, back pain, myalgias or neck pain Integumentary Denies abscess, Abrasions or rash Neurologic Neurologic: Denies headache(s) or weakness Psychiatric Psychiatric: Denies anxiety, depression or suicidal thoughts Endocrine Endocrinology: Denies polydipsia, polyphagia or polyuria Hematologic/Lymphatic Hematologic/Lymphatic: Denies easy bleeding, easy bruising or lymphadenopathy Allergic/Immunologic Allergic/Immunologic ED: Denies mouth swelling, tongue swelling or urticaria EXAM Physical Exam Const Vital Signs: 08/24/23 20:44 Temperature 98.6 F Temperature Source Temporal Pulse Rate 79 Respiratory Rate 18 Blood Pressure 181/102 H Blood Pressure Mean 128 Pulse Ox 98 Oxygen Delivery Method Room Air Positive well nourished and well developed General Appearance ED: well developed and NAD HEENT Reports TM's clear and moist mucous membranes normocephalic and atraumatic; Negative for trauma or tenderness Tympanic Membrane ED: Yes TM's clear Eyes PERRL and EOMs intact bilaterally General Eye ED: Negative for pale conjunctiva or scleral icterus Neck no lymphadenopathy, supple and no JVD General: Negative for tenderness Chest Wall inspection of chest normal and palpation of chest normal Chest: Negative for tenderness Resp normal respiratory effort and clear to auscultation bilaterally Effort and Inspection: Negative for respiratory distress or pain with movement Auscultation: Negative for rhonchi, wheezes or diminished lung sounds Cardio regular rate, regular rhythm, S1 normal heart sound, S2 normal heart sound and no murmurs Peripheral Pulses: pulses 2+ throughout GI normal to inspection, nondistended, normoactive bowel sounds, soft to palpation,non-distended and no masses GI Narrative: Tenderness palpation over the epigastric region as well as the left upper quadrant and left lower quadrant with guarding. There is no rebound, rigidity, or peritoneal signs. No mass palpated. Back/Spine no CVA tenderness and no thoracic nor lumbar tenderness Extremity normal to inspection General Extremety ED: Negative for edema General Extremity: Negative for edema Neuro oriented x3, CN's II-XII intact bilaterally, no sensory deficits noted and gait normal Sensorium / Orientation: awake, alert, oriented to person, oriented to place andoriented to time Motor Exam: strength 5/5 throughout and strength abnormal Psych mental status grossly normal Skin no rashes or lesions noted and no wounds MDM MDM MDM Narrative Medical decision making narrative: Zentz with abdominal pain x3 days. Pain seems to be more left-sided and complaint of pain with bumps in the road on arrival over. In the differential would be diverticulitis versus kidney stone versus bowel obstruction or bowel perforation. Peptic ulcer disease or pancreatitis also in the differential but less likely. CBC with differential obtained showed a slightly elevated white blood cell count of 14.2 with a normal differential. Hemoglobin 12.8 and platelet count 273. LFTs were normal. Lactate normal at 0.6. Lipase normal 7. Urinalysis was normal. CT scan of the abdomen pelvis with IV contrast obtainedshowed bilateral ovarian cyst otherwise showed evidence of prior appendectomy and no other acute disease process. Patient was medicated with 2 mg of morphineand Zofran. This patient be discharged to home diagnosis abdominal pain etiology uncertain. She does have remote history maybe with some irritable bowel syndrome. Will refer to GI for follow-up. We will write a prescription for Zofran as well as Bentyl and a few Spring for severe pain. Advised to returnif worsening pain, fever, vomiting, bloody stools, or condition worsening way. Lab Data Labs: Laboratory Results - last 24 hr 08/24/23 08/24/23 21:00 21:10 WBC 14.2 H RBC 4.53 Hgb 12.8 Hct 40.1 MCV 88.5 MCH 28.3 MCHC 31.9 L RDW Std Deviation 41.0 RDW Coeff of Jennifer 12.7 Plt Count 273 MPV 11.7 Immature Gran % (Auto) 0.500 Neut % (Auto) 69.9 Lymph % (Auto) 20.7 [place] % (Auto) 7.0 Eos % (Auto) 1.6 Baso % (Auto) 0.3 Absolute Neuts (auto) 9.9 H Absolute Lymphs (auto) 2.93 Nucleated RBC % 0 Sodium 137 Potassium 3.6 Chloride 105 Carbon Dioxide 28.0 Anion Gap 4 L BUN 14 Creatinine 0.80 Estim Creat Clear Calc 80.51 Est GFR (MDRD) Af Amer 98 Est GFR (MDRD) Non-Af 81 BUN/Creatinine Ratio 17.4 Glucose 97 Lactic Acid 0.6 Calcium 8.5 Total Bilirubin 0.30 AST 20 ALT 28 Alkaline Phosphatase 89 Total Protein 7.7 Albumin 3.5 Globulin 4.2 Albumin/Globulin Ratio 0.8 L Lipase 57 Urine Color Yellow Urine Clarity Sl. Cloudy Urine pH 5.0 Ur Specific [place] 1.025 Urine Protein Negative Urine Glucose (UA) Normal Urine Ketones Negative Urine Occult Blood 10 H Urine Nitrite Negative Urine Bilirubin Negative Urine Urobilinogen Normal Ur Leukocyte Esterase Negative Urine RBC 0-5 SEEN Urine WBC 0 SEEN Ur Squamous Epith Cells 0-5 SEEN Urine Bacteria 1+ Urine Mucus RARE Radiography Diagnostic Testing: Clinical Impression(s) from Imaging Studies Abdomen/Pelvis CT 08/24/23 20:55 IMPRESSION: undefined Discharge Plan Triage Chief Complaint: Abd Pain ED Provider: Griselda Stewart Dx/Rx/DC Orders Clinical Impression: Abdominal pain Instructions: ED Abdominal Pain Unkn Cause Fem Prescriptions: New hydrocodone-acetaminophen [hydrocodone-acetaminophen] 5-325 mg tablet 1 tab PO Q4H PRN PRN (Reason: Pain) 2 Days Qty: 10 0RF ondansetron [ondansetron] 4 mg tablet,disintegrating 4 mg PO Q8H PRN PRN (Reason: Nausea) Qty: 10 0RF dicyclomine 10 mg capsule 20 mg PO TIDAC Qty: 20 0RF No Action Cetirizine Hcl [Zyrtec] 10 MG tablet 10 mg PO DAILY Patient Comments: ALLERGIES lisinopril 20 mg tablet 20 mg PO DAILY Patient Comments: Take 1 tablet by mouthconce daily. escitalopram oxalate 10 mg tablet 10 mg PO DAILY Patient Comments: Take 1 tablet by mouthConce daily. Primary Care Provider: Trent Velazquez Referrals: Trent Velazquez DO [Primary Care Provider] - Friend,DO Axel [Med Staff - Active Staff] - 3-5 Days Disposition Disposition: Home, Self Care What to do if you have Problems For any increased pain, shortness of breath, bleeding, nausea or vomiting, chestpain, or any unexpected problems, contact your Primary Care Provider. Call [facility] ([phone]) or report to the closest Emergency Room. Call 911 if necessary. 08/24/232304 <Electronically signed by Griselda Stewart DO> Cosigner Signature (if applicable): CC: Dr. Trent Velazquez DO ~ Signed [facility] Work Phone: [phone] 166-589608-03-2023 Discharge summary Author Bo Young [facility] April 28, 2023 9:16am Note Date/Time April 28, 2023 7:1 2am [facility] Medical Records Department [address] [place] [address] Emergency Department Summary 04/28/23 MR#: [id number] Acct: [id number] Name: MENDOZA JOHNSON Rep #:[id number] : 1975 47 From: Bo Young MD PCP: Dr. Trent Velazquez DO Status:REG E R Location: ED HPI History of Present Illness Chief Complaint: Palpitations Detail of Chief Complaint: Did not feel well, palpitations, dizziness and irregular heartbeat Informant: patient and spouse/S.O. Onset/Context/Timing Onset: Yesterday (Last evening for several hours) Context: Sudden Onset Timing: Intermittent (The palpitations irregular heartbeat lasted for a couple hours) Quality: [place] heartbeat Location: Chest Current Severity: Still does not feel normal. Maximum Severity: Moderate Worsened by: Dizziness worsened with standing Relieved by: Not feeling right has not resolved Associated Symptoms Associated Symptoms: None Narrative Narrative: Patient is a 47-year-old woman with history of depression and hypertension who presents with not feeling well with irregular heartbeat, palpitations and dizziness. Patient defines dizziness as lightheaded and was made worse when sherose from a sitting position. She denied headache. She denied double vision, blurred vision or loss of vision. She denies upper respiratory symptoms. She denies cough or shortness of breath. She denies chest discomfort. There is no history of VTE. She denies leg pain, swelling or discoloration. She denies diaphoresis, nausea or shortness of breath. She denies abdominal pain. She denies vomiting or diarrhea. She denies neurologic symptoms. There is been no change in medication dosage or any additions or subtractions from present medication list. 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 He did not palpate for a pulse to determine if these may be PACs versus ventricular premature beats. Prior similar symptoms: No Recent Illness/Hospitalization: No [facility] Medical History Hypertension Home Medications Cetirizine Hcl [Zyrtec] 10 mg PO DAILY 06/15/16 [History Last Taken 06/15/16 09:00] escitalopram oxalate 10 mg tablet 10 mg PO DAILY 04/28/23 [History Last Taken Unknown] lisinopril 20 mg tablet 20 mg DAILY 04/28/23 [History Last Taken Unknown] Allergy/AdvReac Type Severity Reaction Status Date / Time No Known Allergies Allergy Verified 04/28/23 06:47 Surgical History History of appendectomy Social History (Updated 04/28/23 @ 07:[address] Bo Young MD) household members: spouse Smoking Status: Never smoker alcohol intake: current alcohol intake frequency: holidays/special occasions only substance use type: does not use ROS ROS ED Constitutional Constitutional ED: Denies chills, fever(s), subjective or sweats Eyes Eyes: Denies blurry vision, change in vision or diplopia ENT ENT ED: Denies ear pain, rhinorrhea or sore throat Cardiovascular Cardiovascular: Reports palpitations; Denies chest pain, orthopnea, paroxysmal nocturnal dyspnea or racing heartbeat Respiratory/Chest Respiratory/Chest: Denies cough, dyspnea, dyspnea on exertion, orthopnea or paroxysmal nocturnal dyspnea Gastrointestinal Gastrointestinal: Denies abdominal pain, constipation, diarrhea, melena, nausea or vomiting Genitourinary Genitourinary ED: Denies dysuria, hematuria or urinary frequency Musculoskeletal Musculoskeletal: Denies arthralgias, back pain, myalgias or neck pain Integumentary Denies rash Neurologic Neurologic: Denies headache(s) Endocrine Endocrinology: Reports heat intolerance; Denies cold intolerance, polydipsia or polyuria Hematologic/Lymphatic Hematologic/Lymphatic: Reports systems reviewed and no addt'l complaints, exceptas documented EXAM Physical Exam Const Vital Signs: 04/28/23 06:39 Temperature 97.8 F Temperature Source Oral Pulse Rate 72 Respiratory Rate 21 H Blood Pressure 180/107 H Blood Pressure Mean 131 Pulse Ox 98 Oxygen Delivery Method Room Air Positive well nourished, well developed and obese General Appearance ED: well developed and NAD; Negative for cyanotic, diaphoretic or pallor Nutritional Appearance: obese HEENT Reports moist mucous membranes HEENT Narrative: Head is atraumatic normocephalic. Ears are normal. Nares are patent. Posterior pharynx is normal. Mucosa is moist. Eyes PERRL and EOMs intact bilaterally General Eye ED: Negative for pale conjunctiva or scleral icterus Neck no lymphadenopathy, supple and no JVD Chest Wall inspection of chest normal and palpation of chest normal Resp normal respiratory effort and clear to auscultation bilaterally Cardio regular rate, regular rhythm, S1 normal heart sound, S2 normal heart sound and no murmurs GI normal to inspection, nondistended, normoactive bowel sounds, non-tender, non-distended and no masses; Negative for hepatosplenomegaly Back/Spine Back/Spine Narrative: Inspection of back is normal. Extremity normal to inspection Extremity Narrative: There is no asymmetry, swelling, discoloration, leg vein distention, palpable cords or tenderness along the distribution of the deep venous system. General Extremety ED: Negative for edema or tenderness General Extremity: Negative for edema Neuro oriented x3 and CN's II-XII intact bilaterally Sensorium / Orientation: alert Psych mental status grossly normal Skin no rashes or lesions noted, no wounds and skin turgor normal General Skin Exam: elasticity normal; Negative for jaundice or pallor MDM MDM MDM Narrative Medical decision making narrative: Differential diagnosis includes PACs, ventricular premature beats, electrolyte abnormality, noncardiac etiology. Of note patient drinks 1 caffeinated beveragea day, cup of coffee in the morning. Lab Data Attestation: I reviewed the patient's lab results. Lab results narrative: CBC and basic metabolic panel are essentially normal. Chloride is 108. Labs: Laboratory Results - last 24 hr 04/28/23 06:48 WBC 8.8 RBC 4.45 Hgb 13.0 Hct 39.0 MCV 87.6 MCH 29.2 MCHC 33.3 RDW Std Deviation 39.8 RDW Coeff of Jennifer 12.5 Plt Count 256 MPV 11.5 Sodium 139 Potassium 4.0 Chloride 108 H Carbon Dioxide 24.0 Anion Gap 7 BUN 13 Creatinine 0.76 Estim Creat Clear Calc 85.67 Est GFR (MDRD) Af Amer 105 Est GFR (MDRD) Non-Af 87 BUN/Creatinine Ratio 17.2 Glucose 92 Calcium 8.4 L EKG Initial EKG: Attestation: I personally reviewed and interpreted this EKG as follows: Interpretation: Sinus Rhythm (Rate is 65. DE interval is 150 ms. Cures duration 84 ms. QT duration 404 ms. [place] is normal. There is a premature ventricular beat noted.) Treatment and Re-Evaluation :: Remained on the monitor. There was no significant dysrhythmia noted. Patient does have premature ventricular beats. This is probably the irregular beats noted when he auscultated. Since these are unifocal and occasional and her work-up is unremarkable with no further testing needs to be done. She was instructed follow-up with her doctor as needed. Discharge Plan Triage Chief Complaint: Palpitations ED Provider: Bo Young Dx/Rx/DC Orders Clinical Impression: Ventricular premature complexes Instructions: PVCs, ED About Arrhythmias Prescriptions: No Action Cetirizine Hcl [Zyrtec] 10 MG tablet 10 mg PO DAILY Patient Comments: ALLERGIES lisinopril 20 mg tablet 20 mg DAILY Patient Comments: Take 1 tablet by mouthconce daily. escitalopram oxalate 10 mg tablet 10 mg PO DAILY Patient Comments: Take 1 tablet by mouthConce daily. Primary Care Provider: Trent Velazquez Referrals: Trent Velazquez DO [Primary Care Provider] - As Needed Disposition Disposition: Home, Self Care What to do if you have Problems For any increased pain, shortness of breath, bleeding, nausea or vomiting, chestpain, or any unexpected problems, contact your Primary Care Provider. Call [employer] [facility] ([phone]) or report to the closest Emergency Room. Call 911 if necessary. 04/28/23 0916 <Electronically signed by Bo Young MD> Cosigner Signature (if applicable): CC: Dr. Trent Velazquez DO ~ Signed [facility] Work Phone: [phone] 934-466806-15-2023 Miscellaneous Notes* Telephone Encounter - Yang Nieves MD - 03/10/2023 1:34 PM EDT The following approved medication requests have been transmitted electronically. Requested Prescriptions Signed Prescriptions Disp Refills escitalopram oxalate (LEXAPRO) 10 mg tablet 90 tablet 1 Sig: Take 1 tablet by mouth once daily. Authorizing Provider: YANG NIEVES lisinopril (ZESTRIL) 20 mg tablet 90 tablet 1 Sig: Take 1 tablet by mouth once daily. Authorizing Provider: YANG NIEVES MD * Telephone Encounter - Carlos Turner LPN - 03/10/2023 1:15 PM EDT Pt calling to reschedule appointment that she had to cancel with Dr Nieves on 02/23/23 d/t family emergency. See TE 02/17/23. Appointment has been scheduled for 03/28/[address] Nieves. Pt is requesting refills for 90 days to now be sent to [facility]. Pharm updated. Call pt only if problem in refilling. Pt is out of her lisinopril. Carlos Turner LPN documented in this encounterOhiohealth [facility]05-04-2023 Instructions* Patient Instructions* Dania Church APRN.DEEPALI - 01/27/2023 5:29 PM EDT Start augmentin Follow up if no improvement in 7 days documented in this encounterOhiohealth Van Wert [facility]05-04-2023 History of Present illness Narrative* Dania Church, RESOURCE SPECIALIST.TYPE PHOTOGRAPHY SUPERVISOR - 01/27/2023 5:21 PM EDT Chief Complaint Patient presents with: jaw pain: X 5 days HPI Mendoza Johnson is a 47 year old female who presents here today for Above Complaints.. Patient presents for left jaw pain. Patient states a while back she had the same symptoms on the right and was diagnosed parotiitis. Patient was treated with augmentin and this resolved. Patient has seen ENT and was referred to dentistry for mouth guards as she grinds her teeth. Past medical history, appointments, medications, allergies reviewed. Previous Medical History PAST MEDICAL HISTORY Diagnosis Date ADD (attention deficit disorder) 03/13/2016 was on medication till about mid 30's. Adderll once a day. Anal fissure 05/07/2009 Appendicitis Dyslipidemia 07/14/2016 Hypertension, essential 07/27/2022 Inflammatory arthropathy 03/13/2016 Markers elevated but Rheum said negative for Rheumatoid arthritis. 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 Wang Previous Surgical History PAST SURGICAL HISTORY Procedure Laterality Date COLONOSCOPY FLX DX W/COLLJ SPEC WHEN PFRMD 06/07/2014 repeat 10 yrs INSERT INTRAUTERINE DEVICE 08/05/2022 Mirena LAPAROSCOPIC APPENDECTOMY 06/17/2016 TONSILLECTOMY PRIMARY/SECONDARY <AGE 12 1985 Tonsillectomy alone Family History FAMILY HISTORY Problem Relation Age of Onset Arthritis Mother VANESSA Hypertension Mother Arthritis Father VANESSA Diabetes Father Melanoma Father Breast Cancer Maternal Aunt Diabetes Paternal Grandfather No Known Problems Brother Alzheimer's Disease Maternal Grandfather Arthritis Maternal Grandmother Cancer Paternal Grandmother Patient Allergies ALLERGIES Allergen Reactions Tree And Shrub Poll* Other: See Comments seasonal Current Medications Current Outpatient Medications on File Prior to Visit Medication Sig levonorgestrel (MIRENA) 20 mcg/24 hours (8 yrs) 52 mg IUD 1 Each by INTRAUTERINE route one time only. escitalopram oxalate (LEXAPRO) 10 mg tablet Take 1 tablet by mouth once daily. lisinopril (ZESTRIL, PRINIVIL) 20 mg tablet Take 1 tablet by mouth once daily. Ibuprofen 200 mg cap Take by mouth every 6 hours as needed. cetirizine (ZYRTEC) 10 mg tablet Take 1 tablet by mouth once daily. No current facility-administered medications on file prior to visit. Social History Social History Tobacco Use Smoking status: Never Smokeless tobacco: Never Vaping Use Vaping Use: Never used Substance Use Topics Alcohol use: Yes Alcohol/week: 4.0 standard drinks Types: 4 Cans of Beer (12oz) per week Comment: occassionally Drug use: No Review of Symptoms REVIEW OF SYSTEMS SEE HPI EXAM: BP 122/76 Pulse 84 Resp 14 Wt 99.3 kg (219 lb) LMP 08/02/2022 (Approximate) BMI 35.20 kg/m General Appearance: Well appearing, alert, in no acute distress, well-hydrated, well nourished.. Oropharynx: Lips, mucosa, and tongue normal, teeth and gums normal, oropharynx normal. Neck: Positive findings: posterior auricular, tonsillar, and posterior cervical adenopathy. Tender with palpation from behind left ear down to mid left jaw. Mild swelling noted to left side of jaw and face. Health Maintenance List HEPATITIS B(2 of 3 - 19+ 3-dose series) due on 11/16/2019 DEPRESSION ASSESSMENT due on 09/26/2022 MAMMOGRAM due on 04/22/2023 ANNUAL PCP TEAM CHRONIC DISEASE VISIT due on 08/25/2023 BP CONTROLLED (<130/80) due on 09/09/2023 COLORECTAL CANCER SCREENING due on 06/07/2024 PAP TESTING due on 08/16/2024 HPV TESTING due on 08/16/2024 DIABETES SCREEN due on 07/27/2025 DTAP,TDAP,TD(7 - Td or Tdap) due on 03/13/2026 LIPID SCREEN due on 07/27/2027 INFLUENZA Completed HEPATITIS C SCREENING Completed COVID-19 VACCINE Completed HIV SCREENING Discontinued ASSESSMENT/PLAN: 1. Parotitis, acute - ICD9: 527.2, ICD10: K11.21 - AMOXICILLIN 875 MG-POTASSIUM CLAVULANATE 125 MG TABLET - Continue tylenol and ibuprofen Dania Church APRN.DEEPALI documented in this encounterOhiohealth [facility]12-15-2022 History of Present illness Narrative* Lucina Wang APRN.DEEPALI - 09/09/2022 2:26 PM EST Nocturnist Physician offered: Patient declines. Mendoza Johnson presents today for IUD check. She had a Mirena placed on 08/05/2022. She had short menses menses with spotting before and after. REVIEW OF SYSTEMS: No fever, pain or chills PHYSICAL EXAMINATION: BP 126/78 Wt 209 lb (94.8kg) LMP 08/02/2022 ABDOMEN:soft, non-tender, no masses, no hepatosplenomegaly, and no lymphadenopathy EXTERNAL GENITALIA: Normal genitalia and Bartholins, Urethra, Sken'e normal CERVIX: smooth, no lesions. IUD strings visible 3 cm UTERUS: normal size ADNEXA: negative for tenderness or masses ASSESSMENT/PLAN: 1. IUD check up - ICD9: V25.42, ICD10: Z30.431 - IUD in proper placement. Follow-up at annual exam and as needed. Lucina Wang APRN.DEEPALI I spent a total of 20 minutes on the date of the service which included preparing to see the patient, [id number] patient care, completing clinical documentation, obtaining and/or reviewing separately obtained history, performing a medically appropriate examination, and counseling and educating the patient/family/caregiver. documented in this encounterOhiohealth [facility]11-30-2022 Instructions* Patient Instructions* Cyn Berry PA-C - 08/25/2022 12:49 PM EST Please update me via [employer] in 1 month on how lexapro 10mg is doing for you. Follow up routine in 6 months or sooner as needed. documented in this encounterOhiohealth Van [facility]11-30-2022 History of Present illness Narrative* Cyn Berry PA-C - 08/25/2022 12:40 PM EST Chief Complaint Patient presents with: Recheck HPI Mendoza Johnson is a 47 year old female who presents here today for recheck. Patient was seen about 1 month ago with increased depressive like symptoms. We started lexapro and patient does feel like it has help some. Did have a couple days of SE but those went away. Otherwise doing well. Past medical history, appointments, medications, allergies reviewed. Previous Medical History PAST MEDICAL HISTORY Diagnosis Date ADD (attention deficit disorder) 03/13/2016 was on medication till about mid 30's. Adderll once a day. Anal fissure 05/07/2009 Appendicitis Dyslipidemia 07/14/2016 Hypertension, essential 07/27/2022 Inflammatory arthropathy 03/13/2016 Markers elevated but Rheum said negative for Rheumatoid arthritis. 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 Wang Previous Surgical History PAST SURGICAL HISTORY Procedure Laterality Date COLONOSCOPY FLX DX W/COLLJ SPEC WHEN PFRMD 06/07/2014 repeat 10 yrs INSERT INTRAUTERINE DEVICE 08/05/2022 Mirena LAPAROSCOPIC APPENDECTOMY 06/17/2016 TONSILLECTOMY PRIMARY/SECONDARY <AGE 12 1985 Tonsillectomy alone Family History FAMILY HISTORY Problem Relation Age of Onset Arthritis Mother VANESSA Hypertension Mother Arthritis Father VANESSA Diabetes Father Melanoma Father Breast Cancer Maternal Aunt Diabetes Paternal Grandfather No Known Problems Brother Alzheimer's Disease Maternal Grandfather Arthritis Maternal Grandmother Cancer Paternal Grandmother Patient Allergies ALLERGIES Allergen Reactions Tree And Shrub Poll* Other: See Comments seasonal Current Medications Current Outpatient Medications on File Prior to Visit Medication Sig lisinopril (ZESTRIL, PRINIVIL) 20 mg tablet Take 1 tablet by mouth once daily. escitalopram oxalate (LEXAPRO) 5 mg tablet Take 1 tablet by mouth once daily. Ibuprofen 200 mg cap Take by mouth every 6 hours as needed. cetirizine (ZYRTEC) 10 mg tablet Take 1 tablet by mouth once daily. miSOPROStol (CYTOTEC) 200 mcg tablet Insert 2 tablets vaginally night prior to endometrial biopsy and 2 tablets morning of procedure. Each dose should be in vagina for 6-8 hours. (Patient not taking:Reported on 08/05/2022) No current facility-administered medications on file prior to visit. Social History Social History Tobacco Use Smoking status: Never Smokeless tobacco: Never Vaping Use Vaping Use: Never used Substance Use Topics Alcohol use: Yes Alcohol/week: 4.0 standard drinks Types: 4 Cans of Beer (12oz) per week Comment: occassionally Drug use: No Review of Symptoms REVIEW OF SYSTEMS See hpi EXAM: BP 130/96 (BP Site: Right Arm, BP Position: Sitting, BP Cuff Size: Large Adult) Pulse 64 Temp 36.5 C (97.7 F) Resp 18 Wt 95.7 kg (211 lb) LMP 08/02/2022 (Approximate) BMI 33.91 kg/m BP 131/87 (BP Site: Right Arm, BP Position: Sitting, BP Cuff Size: Extra Large Adult) Pulse 65 Temp 36.5 C (97.7 F) Resp 18 Wt 95.7 kg (211 lb) LMP 08/02/2022 (Approximate) BMI 33.91 kg/m General Appearance: Well appearing, alert, in no acute distress, well-hydrated, well nourished. andOverweight. Health Maintenance List BP CONTROLLED (<130/80) Never done HEPATITIS B(2 of 3 - 19+ 3-dose series) due on 11/16/2019 COVID-19 VACCINE(3 - Booster for Moderna series) due on 12/31/2020 INFLUENZA(1) due on 05/27/2022 MAMMOGRAM due on 04/22/2023 ANNUAL PCP TEAM CHRONIC DISEASE VISIT due on 07/27/2023 COLORECTAL CANCER SCREENING due on 06/07/2024 PAP TESTING due on 08/16/2024 HPV TESTING due on 08/16/2024 DIABETES SCREEN due on 07/27/2025 DTAP,TDAP,TD(7 - Td or Tdap) due on 03/13/2026 LIPID SCREEN due on 07/27/2027 DEPRESSION ASSESSMENT Completed HEPATITIS C SCREENING Completed HIV SCREENING Discontinued Data reviewed ASSESSMENT/PLAN: 1. Mild episode of recurrent major depressive disorder (HCC) - ICD9: 296.31, ICD10: F33.0 (primary diagnosis) Improved. Will increase lexapro to 10mg Patient to update me via [employer] as needed in 1 month. Otherwise follow up routine in 6 months. 2. Hypertension, essential - ICD9: 401.9, ICD10: I10 - fair control - Continue current medication(s) - Recommended regular aerobic exercise. - Recommend home blood pressure monitoring, to bring results in on next visit - Goal of BP <130/80 3. Encounter for immunization - ICD9: V03.89, ICD10: Z23 - INFLUENZA VACCINE QUADRIVALENT 6 MO - 64 YRS IM - PFIZER-BIONTECH COVID-19 BIVALENT BOOSTER VACCINE, AGE 12+ YR Cyn Berry PA-C documented in this encounterOhiohealth Van [facility]11-12-2022 History of Present illness Narrative* Bev Banks APRN.DEEPALI - 08/07/2022 12:03 PM EST Images from the original note were not included. Subjective HPI Mendoza Johnson is a 47 year old female who presents with a headache x 2 days and skin sensitivityon the right side of her neck and head for the past 2 days. She has been taking tylenol and ibuprofen. She states she has had this twice in the past and was treated with Valtrex and it subsided. She has a current URI- has chest congestion and cough. Denies fever. Denies visual disturbances, extremity weakness or pain, or confusion. Review of Systems Constitutional: Negative for chills and fever. HENT: Positive for congestion. Negative for ear pain and sore throat. Respiratory: Positive for cough. Negative for shortness of breath. Cardiovascular: Negative. Skin: Negative for itching and rash. Neurological: Positive for headaches. Negative for dizziness, tingling, tremors, sensory change, speech change, focal weakness and weakness. BP 130/84 Pulse 70 Temp 36.4 C (97.6 F) Resp 18 Wt 94.8 kg (209 lb) LMP 08/02/2022 (Approximate) SpO2 99% BMI 33.59 kg/m PAST MEDICAL HISTORY Diagnosis Date ADD (attention deficit disorder) 03/13/2016 was on medication till about mid 30's. Adderll once a day. Anal fissure 05/07/2009 Appendicitis Dyslipidemia 07/14/2016 Hypertension, essential 07/27/2022 Inflammatory arthropathy 03/13/2016 Markers elevated but Rheum said negative for Rheumatoid arthritis. 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 Wang PAST SURGICAL HISTORY Procedure Laterality Date COLONOSCOPY FLX DX W/COLLJ SPEC WHEN PFRMD 06/07/2014 repeat 10 yrs INSERT INTRAUTERINE DEVICE 08/05/2022 Mirena LAPAROSCOPIC APPENDECTOMY 06/17/2016 TONSILLECTOMY PRIMARY/SECONDARY <AGE 12 1985 Tonsillectomy alone ALLERGIES Tree And Shrub Pollen MEDICATIONS valACYclovir (VALTREX) 1 gram Take 1 tablet by mouth three times daily for 7 days. lisinopril (ZESTRIL, PRINIVIL) 20 mg tablet Take 1 tablet by mouth once daily. escitalopram oxalate (LEXAPRO) 5 mg tablet Take 1 tablet by mouth once daily. miSOPROStol (CYTOTEC) 200 mcg tablet Insert 2 tablets vaginally night prior to endometrial biopsy and 2 tablets morning of procedure. Each dose should be in vagina for 6-8 hours. (Patient not taking:Reported on 08/05/2022) Ibuprofen 200 mg cap Take by mouth every 6 hours as needed. cetirizine (ZYRTEC) 10 mg tablet Take 1 tablet by mouth once daily. FAMILY HISTORY Problem Relation Age of Onset Arthritis Mother VANESSA Hypertension Mother Arthritis Father VANESSA Diabetes Father Melanoma Father Breast Cancer Maternal Aunt Diabetes Paternal Grandfather No Known Problems Brother Alzheimer's Disease Maternal Grandfather Arthritis Maternal Grandmother Cancer Paternal Grandmother Social History Tobacco Use Smoking status: Never Smokeless tobacco: Never Vaping Use Vaping Use: Never used Substance Use Topics Alcohol use: Yes Alcohol/week: 4.0 standard drinks Types: 4 Cans of Beer (12oz) per week Comment: occassionally Drug use: No Objective Physical Exam Vitals and nursing note reviewed. Constitutional: Appearance: Normal appearance. HENT: Right Ear: Tympanic membrane, ear canal and external ear normal. Left Ear: Tympanic membrane, ear canal and external ear normal. Nose: Nose normal. Mouth/Throat: Mouth: Mucous membranes are moist. Pharynx: Oropharynx is clear. Eyes: Extraocular Movements: Extraocular movements intact. Right eye: Normal extraocular motion. Left eye: Normal extraocular motion. Conjunctiva/sclera: Right eye: Right conjunctiva is not injected. Left eye: Left conjunctiva is not injected. Pupils: Pupils are equal, round, and reactive to light. Cardiovascular: Rate and Rhythm: Normal rate. Pulmonary: Effort: Pulmonary effort is normal. Musculoskeletal: Cervical back: Neck supple. No rigidity. Lymphadenopathy: Cervical: No cervical adenopathy. Skin: General: Skin is warm and dry. Capillary Refill: Capillary refill takes less than 2 seconds. Findings: No erythema or rash. Neurological: Mental Status: She is alert. ASSESSMENT/PLAN: 1. Neck pain on right side - ICD9: 723.1, ICD10: M54.2 - suspect shingles prodrome. Start medication if rash appears. - VALACYCLOVIR 1 GRAM TABLET - Follow-up with your PCP in 3-5 days if symptoms have not improved or sooner if symptoms worsen - Discussed red flags and need for immediate medical evaluation if any occur. - Discussed supportive care treatment with fluids, rest and analgesia. - Discussed expected course of illness Bev Banks APRN.CNP documented in this encounterOhiohealth [facility]11-12-2022 Instructions* Patient Instructions* Bev Banks APRN.CNP - 08/07/2022 12:01 PM EST ASSESSMENT/PLAN: 1. Neck pain on right side - ICD9: 723.1, ICD10: M54.2 - suspect shingles prodrome. - VALACYCLOVIR 1 GRAM TABLET - Follow-up with your PCP in 3-5 days if symptoms have not improved or sooner if symptoms worsen - Discussed red flags and need for immediate medical evaluation if any occur. - Discussed supportive care treatment with fluids, rest and analgesia. - Discussed expected course of illness Bev Banks APRN.CNP documented in this encounterOhiohealth Van [facility]11-12-2022 Miscellaneous Notes* Telephone Encounter - Carlos Turner LPN - 08/07/2022 8:25 AM EST . documented in this encounterOhiohealth Van [facility]11-10-2022 Instructions* Patient Instructions* Alissa Barrow Ma - 08/05/2022 8:52 AM EST POST IUD INSTRUCTIONS You may have irregular bleeding during the first 3 months of use. You may have mild-severe cramping for the next 48 hours. You may use over the counter medication (Motrin, Tylenol) as needed. Your IUD must be removed or replaced based on the following table: IUD Type Removed or replaced within: Christina 3 years Kyleena 5 years Mirena 8 years Paragard 10 years Call my office for signs/symptoms of infection such as severe cramping, fever, or unusual bleeding. Check for string placement as instructed by your doctor. If you have any additional questions, please contact the office. documented in this encounterOhiohealth Van [facility]11-10-2022 History of Present illness Narrative* Lucina Wang APRN.[facility] - 08/05/2022 8:51 AM EST Nocturnist Physician offered: Patient declines. Mendoza presents today for IUD insertion and endometrial biopsy for dysmenorrhea, menstrual dysfunction. Patient's last menstrual period was 08/02/2022 (approximate). GC/chlamydia: Not done: no risk factors and/or patient declines screening test: negative Side effects including irregular bleeding were discussed with the patient. The patient understands that it should be removed in 8 years or sooner if the patient desires a . IUD source: office provided IUD lot #: [id number] Exp date: 10/26/24 UNIVERSAL PROTOCOL / SAFETY CHECKLIST Procedure to be Performed: endometrial biopsy and Intrauterine Device (IUD) Insertion Kendall Sign In: A Moment of CARE was completed. Personnel directly involved with the procedure wore the appropriate PPE (Personal Protective Equipment). Patient/Surrogate Stated/Verified: PATIENT VERIFIED(optional for EMERGENT procedures): Patient name, Date of , Relevant allergies, and The intended procedure Time Out Communication: Intended patient and procedure match the source documents. Consent documented and matches the intended procedure. Relevant labs, photos, and/or imaging studies have been reviewed. Implant(s) inserted: Correct implant(s) confirmed including size and side. and Expiration date(s) reviewed. Sign Out: SIGN OUT (optional for EMERGENT procedures): All specimen containers correctly labeled. All instruments, equipment, possible retained foreign bodies accounted for. Post-procedure follow-up management communicated and Plan of Care Visit completed when applicable. The cervix was prepped with betadine. The uterus sounded to 9 cm and the uterus is Anteverted.. Using sterile technique, the Mirena IUD was inserted after the cervix was dilated and the string was cut to 3 cm from the external os of the cervix. Patient tolerated procedure well. PLAN: Patient was advised to observe for signs and symptoms of infection including but not limited to fever, malodorous vaginal discharge and/or pain. The patient was told to check the string monthlyfor accurate placement. Bleeding expectations were reviewed. Follow up after next menses for string check. PROCEDURE: endometrial biopsy EXTERNAL GENITALIA: Normal in appearance without lesions VAGINA: Normal in appearance without lesions BIOPSY: Speculum placed into the vagina with excellent visualization of the cervix. Cervix cleaned with betadine. Anterior lip of cervix grasped with single toothed tenaculum. Cervix dilated. Uterus sounded to 9 cm. Pipelle inserted into the uterus without difficulty and endometrial biopsy obtained. Specimen labeled and sent to pathology. Hemostasis achieved. Procedure Summary: Patient tolerated procedure well. ASSESSMENT: abnormal uterine bleeding PLAN: Specimens labeled and sent to Pathology. Will notify patient of results in 1-2 weeks. Post-procedure instructions reviewed and written material given to the patient. Lucina Wang APRN.DEEPALI documented in this encounterOhiohealth Van [facility]11-04-2022 Miscellaneous Notes* Telephone Encounter - Gabi Rachel MA - 07/30/2022 2:30 PM EDT Patient notified and voiced understanding. Mailed cholesterol info. Gabi Rachel MA * Telephone Encounter - Gabi Rachel MA - 07/29/2022 10:17 AM EDT Left additional message for patient to contact office. Gabi Rachel MA * Telephone Encounter - Carlos Turner LPN - 07/28/2022 11:41 AM EDT Left message for pt to contact office. Carlos Turner LPN * Telephone Encounter - Cyn Berry PA-C - 07/28/2022 11:35 AM EDT Let patient know that her cholesterol has worsened some. Total cholesterol is up to 248 and LDL up 119. HDL still good at 52. Trigs at 387. Would recommend she take 1000mg of fish oil twice daily if she isn't already. Continue to work on diet and weight loss. Rest of labs are normal. documented in this encounterOhiohealth [facility]11-02-2022 Miscellaneous Notes* Telephone Encounter - Karmen Mcfadden RN - 07/28/2022 3:51 PM EDT Called patient in an attempt to obtain outside records or recent procedures/ imaging. Patient unable to be reached. Karmen Mcfadden RN documented in this encounterOhiohealth Van [facility]11-01-2022 History of Present illness Narrative* Cyn Berry PA-C - 07/27/2022 2:18 PM EDT Chief Complaint Patient presents with: Yearly Exam HPI Mendoza Johnson is a 47 year old female who presents here today for physical. Patient with hx of hyperlipidemia, HTN, UC, ADD, inflammatory arthropathy, allergies, and those as below. She has noted more stress recently. Feels like it's partly due to the weather but also her youngest child just moved out. She was on lexapro in the past that worked well for her. Past medical history, appointments, medications, allergies reviewed. Previous Medical History PAST MEDICAL HISTORY Diagnosis Date ADD (attention deficit disorder) 03/13/2016 was on medication till about mid 30's. Adderll once a day. Anal fissure 05/07/2009 Appendicitis Dyslipidemia 07/14/2016 Inflammatory arthropathy 03/13/2016 Markers elevated but Rheum said negative for Rheumatoid arthritis. 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 Wang Previous Surgical History PAST SURGICAL HISTORY Procedure Laterality Date COLONOSCOPY FLX DX W/COLLJ SPEC WHEN PFRMD 06/07/2014 repeat 10 yrs LAPAROSCOPIC APPENDECTOMY 06/17/16 TONSILLECTOMY PRIMARY/SECONDARY <AGE 12 1985 Tonsillectomy alone Family History FAMILY HISTORY Problem Relation Age of Onset Arthritis Mother VANESSA Hypertension Mother Arthritis Father VANESSA Diabetes Father Melanoma Father Breast Cancer Maternal Aunt Diabetes Paternal Grandfather No Known Problems Brother Alzheimer's Disease Maternal Grandfather Arthritis Maternal Grandmother Cancer Paternal Grandmother Patient Allergies ALLERGIES Allergen Reactions Tree And Shrub Poll* Other: See Comments seasonal Current Medications Current Outpatient Medications on File Prior to Visit Medication Sig Ibuprofen 200 mg cap Take by mouth every 6 hours as needed. cetirizine (ZYRTEC) 10 mg tablet Take 1 tablet by mouth once daily. lisinopril (ZESTRIL, PRINIVIL) 10 mg tablet Take 1 tablet by mouth once daily. miSOPROStol (CYTOTEC) 200 mcg tablet Insert 2 tablets vaginally night prior to endometrial biopsy and 2 tablets morning of procedure. Each dose should be in vagina for 6-8 hours. No current facility-administered medications on file prior to visit. Social History Social History Tobacco Use Smoking status: Never Smokeless tobacco: Never Vaping Use Vaping Use: Never used Substance Use Topics Alcohol use: Yes Alcohol/week: 4.0 standard drinks Types: 4 Cans of Beer (12oz) per week Drug use: No Review of Symptoms REVIEW OF SYSTEMS GENERAL: No weight loss, malaise or fevers HEENT: No changes in hearing or vision, no nose bleeds or other nasal problems NECK: Negative for lumps, goiter, pain and significant neck swelling RESPIRATORY: Negative for cough, hemoptysis, wheezing, COPD, dyspnea or shortness of breath CARDIOVASCULAR: Negative for chest pain, leg swelling, CHF or palpitations GI: + UC with current increase in diarrhea. No n/v or acid reflux : No history of dysuria, frequency or incontinence INSPECTOR SALVAGE: Negative for abnormal vaginal bleeding, abnormal vaginal discharge MUSCULOSKELETAL: Stable SKIN: Negative for lesions, rash, and itching PSYCH: See HPI HEMATOLOGY/LYMPHOLOGY: Negative for prolonged bleeding, bruising easily or swollen nodes ENDOCRINE: Negative for cold or heat intolerance, polyuria, polydipsia and goiter NEURO: No history of headaches, syncope, paralysis, seizures or tremors EXAM: BP 130/90 (BP Site: Left Arm, BP Position: Sitting, BP Cuff Size: Large Adult) Pulse 72 Temp 36.7 C (98.1 F) Resp 18 Ht 168 cm (5' 6.14) Wt 94.8 kg (209 lb) LMP 06/07/2022 (Approximate) BMI 33.59 kg/m Last 3 Encounter Wt Readings: Date: Wt: 07/27/2022 94.8 kg (209 lb) 04/20/2022 95.7 kg (211 lb) 09/07/2021 97.5 kg (215 lb) General Appearance: Well appearing, alert, in no acute distress, well-hydrated, well nourished. andOverweight. Skin: Skin color, texture, turgor normal, no suspicious rashes or lesions. Head: Normocephalic, no masses, lesions, tenderness or abnormalities. Eyes: Anicteric sclera. Pupils are equally round and reactive to light. Extraocular movements are intact. . Ears: External ears normal, canals clear, TMs pearly weller. Neck: Supple, no adenopathy; thyroid symmetric, normal size, no bruits. Lungs: Lungs clear to auscultation. No wheezing, rhonchi, rales.. Heart: RRR without murmur, gallop, or rubs. No ectopy. Abdomen: Normal abdominal exam, Abdomen soft, non-tender. Bowel sounds normal. No masses, organomegaly. Extremities: No deformities, edema, skin discoloration, clubbing or cyanosis. Good capillary refill. . Peripheral Pulses: Normal. Neurologic: Gait normal. Reflexes normal and symmetric. Sensation grossly intact.. Health Maintenance List HEPATITIS B(2 of 3 - 3-dose series) due on 11/16/2019 COVID-19 VACCINE(3 - Booster for Moderna series) due on 12/31/2020 DEPRESSION ASSESSMENT Never done INFLUENZA(1) due on 05/27/2022 MAMMOGRAM due on 04/22/2023 COLORECTAL CANCER SCREENING due on 06/07/2024 DIABETES SCREEN due on 06/12/2024 PAP TESTING due on 08/16/2024 HPV TESTING due on 08/16/2024 DTAP,TDAP,TD(7 - Td or Tdap) due on 03/13/2026 LIPID SCREEN due on 06/12/2026 HEPATITIS C SCREENING Completed HIV SCREENING Discontinued Data reviewed ASSESSMENT/PLAN: 1. Well adult exam - ICD9: V70.0, ICD10: Z00.00 (primary diagnosis) - Counseled on healthy diet and regular exercise - Calcium intake with supplements or by diet of 1000 mg/day for under 50, 1200- 1500 mg/day for 50+ - discussed vaccines. Patient declines at this time 2. Hypertension, essential - ICD9: 401.9, ICD10: I10 - suboptimal control - Increase lisinopril (Zestril/Prinivil) - Recommended regular aerobic exercise. - Recommend home blood pressure monitoring, to bring results in on next visit - Follow up in 1 month for BP recheck. - Goal of BP <130/80 - LISINOPRIL 20 MG TABLET - COMP METABOLIC PANEL - URINALYSIS, WITH MICROSCOPIC 3. Dyslipidemia - ICD9: 272.4, ICD10: E78.5 - to be determined upon return of lab results - Discussed the benefits of regular aerobic exercise and weight loss. - Encouraged following a low carbohydrate, healthy oil intake diet. - Continue current therapy. - LIPID PANEL, NONFASTING - COMP METABOLIC PANEL 4. Encounter for screening for diabetes mellitus - ICD9: V77.1, ICD10: Z13.1 - HGB A1C - COMP METABOLIC PANEL 5. Mild episode of recurrent major depressive disorder (HCC) - ICD9: 296.31, ICD10: F33.0 Start lexapro Follow up in 1 month. 6. Inflammatory arthropathy - ICD9: 714.9, ICD10: M19.90 Cont with rheum 7. 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 If your Bp is consistently elevated >140/80's may take 2 tablets, 20 mg total. 2.) Continue to monitor BP at home, check 1-2 times per day. Write numbers down, you can message the office your readings in about 5-7 days. 3.) Red flag symptoms go to ER. 4.) Watch salt and processed foods in the diet. 5.) Follow up in 1 month or sooner as needed. documented in this encounterOhiohealth [facility]09-29-2022 History of Present illness Narrative* Britney Chong APRN.CNP - 06/24/2022 10:00 AM EDT This is a 47 year old female who presents today with: Patient presents with: Acute Visit: Elevated BP HISTORY OF PRESENT ILLNESS: Mendoza Johnson is a 47 year old female. Patient presents with: Acute Visit: Elevated BP Patient of Dr. Nieves here in the office for elevated blood pressure. At [employer] appointment about 1 month ago refers that BP was elevated. Last night didn't feel well. Elmore like heart was pounding. Has been having headache and dizziness recently. No chest pain, palpitations, or edema. PAST MEDICAL HISTORY: PAST MEDICAL HISTORY Diagnosis Date ADD (attention deficit disorder) 03/13/2016 was on medication till about mid 30's. Adderll once a day. Anal fissure 05/07/2009 Appendicitis Dyslipidemia 07/14/2016 Inflammatory arthropathy 03/13/2016 Markers elevated but Rheum said negative for Rheumatoid arthritis. 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 Wang PAST SURGICAL HISTORY Procedure Laterality Date COLONOSCOPY FLX DX W/COLLJ SPEC WHEN PFRMD 06/07/2014 repeat 10 yrs LAPAROSCOPIC APPENDECTOMY 06/17/16 TONSILLECTOMY PRIMARY/SECONDARY <AGE 12 1985 Tonsillectomy alone ALLERGIES Tree And Shrub Pollen MEDICATIONS Current Outpatient Medications Medication Sig miSOPROStol (CYTOTEC) 200 mcg tablet Insert 2 tablets vaginally night prior to endometrial biopsy and 2 tablets morning of procedure. Each dose should be in vagina for 6-8 hours. Ibuprofen 200 mg cap Take by mouth every 6 hours as needed. cetirizine (ZYRTEC) 10 mg tablet Take 1 tablet by mouth once daily. No current facility-administered medications for this visit. FAMILY HISTORY Problem Relation Age of Onset Arthritis Mother VANESSA Hypertension Mother Arthritis Father VANESSA Diabetes Father Melanoma Father Breast Cancer Maternal Aunt Diabetes Paternal Grandfather No Known Problems Brother Alzheimer's Disease Maternal Grandfather Arthritis Maternal Grandmother Cancer Paternal Grandmother Social History Tobacco Use Smoking status: Never Smokeless tobacco: Never Vaping Use Vaping Use: Never used Substance Use Topics Alcohol use: Yes Alcohol/week: 4.0 standard drinks Types: 4 Cans of Beer (12oz) per week Drug use: No REVIEW OF SYSTEMS GENERAL: No weight loss, malaise or fevers/chills HEENT: Negative for frequent or significant headaches, No changes in hearing or vision. NECK: Negative for lumps, goiter, pain and significant neck swelling RESPIRATORY: Negative for cough, hemoptysis, wheezing, dyspnea or shortness of breath CARDIOVASCULAR: Negative for chest pain, leg swelling, orthopnea, or palpitations GI: No nausea, vomiting, or diarrhea/constipation. No hematochezia/melena. No heartburn or reflux symptoms. : No history of dysuria, frequency or incontinence MUSCULOSKELETAL: Negative for joint pain or swelling. SKIN: Negative for lesions, rash, and itching ENDOCRINE: Negative for cold or heat intolerance, polyuria, polydipsia and goiter NEURO: + Headache/Dizziness MOOD: Negative for depression, anxiety, or suicidal ideation. EXAM: Pulse (P) 72 Resp (P) 16 Wt (P) 95.7 kg (211 lb) LMP 06/07/2022 (Approximate) SpO2 (P) 100% BMI (P) 34.06 kg/m True BP: 162/111, 148/96, 139/89, 130/79, Av/88 PHYSICAL EXAM: General Appearance: Well appearing, alert, in no acute distress, well-hydrated, well nourished. Skin: Skin color, texture, turgor normal, no suspicious rashes or lesions. Head: Normocephalic, no masses, lesions, tenderness or abnormalities. Eyes: Anicteric sclera. Extraocular movements are intact. Neck: Supple, no adenopathy; thyroid symmetric, normal size, no bruits. Lungs: Lungs clear to auscultation. No wheezing, rhonchi, rales. Heart: RRR without murmur, gallop, or rubs. No ectopy. Extremities: No deformities, edema, skin discoloration, clubbing or cyanosis. Good capillary refill. Peripheral Pulses: Normal, Capillary refill <2secs, strong peripheral pulses, Pulses palpable. Neurologic: Gait normal. Sensation grossly intact. ASSESSMENT/PLAN: 1. Hypertension, essential - ICD9: 401.9, ICD10: I10 - newly diagnosed - Begin lisinopril (Zestril/Prinivil) 10 mg daily - Encouraged dietary sodium restriction/DASH diet - Recommended regular aerobic exercise. - Recommend home blood pressure monitoring, to bring results in on next visit - Discussed need and benefit for weight loss. - Red flag symptoms given to patient, she verbalizes understanding when to seek emergency care. - Follow up in 1 month for BP recheck. - Goal of BP <130/80 - LISINOPRIL 10 MG TABLET Follow up in 1 month or sooner as needed. Discussed treatment plan and patient voices understanding. Patient's questions answered appropriately. Medications and potential side effects were discussed and patient voices understanding. Britney Chong APRN.CNP This note was partially generated using [employer] voice recognition system. Note was reviewed for accuracy. There may be minor misspellings or grammar miscues with BigRep voice recognition. documented in this encounterOhiohealth [facility]08-19-2022 Miscellaneous Notes* Telephone Encounter - Lucina Wang APRN.CNP - 05/14/2022 4:05 PM EDT Patient returned call. Discussed results of pelvic ultrasound showing possible adhesive disease butotherwise normal. Discussed need for endometrial biopsy due to age and increased bleeding. Patient agreeable and would like Mirena IUD inserted at the same time. Vaginal misoprostol prescribed and use explained to patient. Patient to schedule procedures when she is on her menses or within 2 days afterwards, she is to eat and take ibuprofen prior to appointment. All questions answered. Lucina Wang APRN.CNP * Telephone Encounter - Veronica Velasquez RN - 05/14/2022 2:53 PM EDT Patient called back, she is available the rest of today if provider could call her back. Veronica Velasquez RN * Telephone Encounter - Lucina Wang APRN.CNP - 05/14/2022 2:29 PM EDT LMTCB to discuss results. I will speak to the pt directly. If I am unavailable, please obtain a couple of times that she would be available for a call back. Lucina Wang APRN.CNP documented in this encounterOhiohealth [facility]07-29-2022 Miscellaneous Notes* Letter - Mammography Coordinator - 04/23/2022 9:53 AM EDT April 23, 2022 PID: [id number] Mendoza Johnson [address] [place] [address] Dear Ms. Johnson, We are pleased to inform you that the results of your recent breast imaging exam on 04/22/2022 are normal. Early detection of cancer is very important. We also understand recommendations regarding breast cancer screening are controversial. Please discuss with your primary care provider which strategy is best for you and whether a mammogram is right for you. Your imaging studies and report will be [facility] as part of your permanent medical record and are available for your continuing care. Thank you for allowing us to help in meeting your health care needs. Sincerely, Dr. Liu Interpreting Radiologist [facility] (Normal over 40) documented in this encounterOhiohealth Van W[facility]07-28-2022 History of Present illness Narrative* Kellen Martini, (R) - 04/22/2022 2:50 PM EDT Radiology Service Progress Note PATIENT NAME: Mendoza Johnson DATE OF SERVICE: April 22, 2022 TIME: 2:46 PM PATIENT IDENTITY VERIFICATION COMPLETED USING TWO (2) IDENTIFIERS: Name and Date of confirmedby patient verbally. FALL SCREENING: Has the patient had 2 falls in the last year or 1 fall with injury or currently using an Ambulatory Assistive Device (Walker, Cane, Wheelchair, Crutches, etc.)? No PATIENT GENDER DATA: Female. status: : No status: NO. PATIENT RELEVANT IMPLANT DATA REVIEWED: Not Applicable RADIOLOGY DEPARTMENT: Mammography PERIPHERAL IV DATA: Not applicable SIGNED BY: RT Harshil(R) April 22, 2022 2:46 PM documented in this encounterOhiohealth Van W[facility]07-26-2022 History of Present illness Narrative* Lucina Wang APRN.[facility] - 04/20/2022 3:53 PM EDT Mendoza is a 46 year old who presents for an annual gynecologic exam with complaints, thinks has a yeast infection. . White vaginal discharge and itching x 4 days. Treated with Diflucan last month. Menses: cycles every 1-2 months and 3-4 days of flow. Day 2-3 heaviest - changing super plus tampons every hour. Has had heavy menses for past few years and now passing clots. Cramping starts prior to menses - severe cramping on days 2-3. + mood changes. Contraception: vasectomy HPV vaccine: No Last Pap: normal 2018 HPV: negative 2019 History of abnormal pap: Yes - age 18 cryo, normal Pap Last mammogram: 2020 normal Sexually active: Yes Patient concerns for STD exposure: No. Time with current partner: 14 years Pain with intercourse: No Postcoital bleeding: No Hot flashes: Yes - generally feels hot Night sweats: No OB History T0 L2 SAB0 IAB0 Ectopic0 Multiple0 Live Births0 Android Developer History LMP: 06/12/2021 (Exact Date), Having periods Age at Menarche: Age at First : Age at Menopause: Android Developer History Comments: Sexual Activity: Yes; Male Contraception: None, Vasectomy PAST MEDICAL HISTORY Diagnosis Date ADD (attention deficit disorder) 03/13/2016 was on medication till about mid 30's. Adderll once a day. Anal fissure 05/07/2009 Appendicitis Dyslipidemia 07/14/2016 Inflammatory arthropathy 03/13/2016 Markers elevated but Rheum said negative for Rheumatoid arthritis. 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 Wang PAST SURGICAL HISTORY Procedure Laterality Date COLONOSCOP W/ OR W/O BRSH SPEC 06/07/2014 repeat 10 yrs LAPAROSCOPY, SURGICAL, APPENDECTOMY 06/17/16 REMOVAL OF TONSILS,<12 Y/O 1985 Tonsillectomy alone FAMILY HISTORY Problem Relation Age of Onset Arthritis Mother VANESSA Hypertension Mother Arthritis Father VANESSA Diabetes Father Melanoma Father Breast Cancer Maternal Aunt Diabetes Paternal Grandfather No Known Problems Brother Alzheimer's Disease Maternal Grandfather Arthritis Maternal Grandmother Cancer Paternal Grandmother SOCIAL HISTORY Social History Tobacco Use Smoking status: Never Smoker Smokeless tobacco: Never Used Vaping Use Vaping Use: Never used Substance Use Topics Alcohol use: Yes Alcohol/week: 4.0 standard drinks Types: 4 Cans of Beer (12oz) per week Drug use: No REVIEW OF SYSTEMS Abdomen: No abdominal pain, nausea, vomiting, diarrhea, or constipation. No bloating, early satiety, indigestion, or increased flatulence. Bladder: No dysuria, gross hematuria, urinary frequency, urinary urgency, or incontinence. Breast: No breast lumps, nipple d/c, overlying skin changes, redness or skin retraction. Allergies and current medication updated:Yes EXAM: BP 140/98 Ht 5' 6 (1.68m) Wt 211 lb (95.7kg) LMP 03/26/2022 BMI 34.07 kg/(m^2). GENERAL: pleasant, female in no apparent distress HEENT: Normocephalic, atraumatic, mucus membranes moist and no lesions NECK: Supple, full range of motion, no adenopathy and thyroid normal DERMATOLOGY: Normal, without lesions, non-icteric and non-hirsute BREAST: soft, non-tender, symmetric, no dominant mass, normal nipple-areolar complex, no lymphadenopathy and no nipple discharge CHEST: Normal inspiratory effort ABDOMEN: soft, non-tender and no masses PELVIC: external genitalia normal, normal Bartholin's glands, urethra, [place]'s glands, no vulvar lesions, no cervical lesions, good vaginal support, thick clumpy adherent white discharge present, normal appearing perineal body and perianal region BIMANUAL: uterus normal size, shape and consistency, no adnexal masses and non-tender RECTOVAGINAL: deferred. NEURO: alert and oriented x3,exam grossly non-focal EXTREMITIES: normal ASSESSMENT/PLAN: 1) Health maintenance: Pap/HPV up to date. Mammogram ordered. Nutrition, exercise and routine health maintenance exams reviewed. Calcium/Vitamin D supplementation information provided. 2. Menorrhagia with irregular cycle - ICD9: 626.2, ICD10: N92.1 - PELVIC US WHI - TSH BLD 3. Vaginal yeast infection - ICD9: 112.1, ICD10: B37.3 - Monistat 7 or generic - a applicator full at bedtime every night for 7 nights. 4) Contraception: vasectomy. Contraceptive options reviewed and information provided. 5) STD screening: Declined STD check. 6) Follow up one year or sooner as needed Lucina Wang APRN.CNP documented in this encounterOhiohealth [facility]06-08-2022 Miscellaneous Notes* Telephone Encounter - Eliz Reyna APRN.CNM - 03/03/2022 1:03 PM EDT Prescription ordered. Eliz Reyna APRN.CNM * Telephone Encounter - Jayne Maradiaga RN - 03/03/2022 8:51 AM EDT Please review in AG's absence. Thank you. documented in this encounterOhiohealth Van [facility]09-24-2021 NoteHNO ID: [id number] Author: Eliane Mo MD Service: ? Author Type: Physician Type: Progress Notes Filed: 06/19/2021 12:21 PM Note Text: VIRTUAL VISIT PROGRESS NOTE This is a virtual visit using [employer] video visit. It required patient-provider interaction for the medical decision making as documented below. Mendoza Johnson is a 46 year old female seen for joint pain. Fatigue is same. Exercising. Sleeps well 7-8 hrs. She was seen by Dr. Gilliland 7 years ago. inflammatory markers were high, rheumatoid was negativeshe was prescribed MTX which did not help. So she weaned off MTX. Joint pain over feet, hips, low back, hands. Pain worsening in the last year. Hands and feet pain are more recent. She likes to be active but unable to do so due to pain. It takes 2 days to recover from work outs. She tried tylenol, ibuprofen. No swelling, may be in hands. AM stiffness lasting 10-15 min. Gelling phenomenon. Pain depends on her activities. She has a stand up desk. Pain happens as soon she rests after activities.she tried voltaren gel. ? ? Ulcerative proctitis, was on Asacol which she took for a month. It was not refilled, she never followed up after that. She does not feel colitis is completely under control. Review of records - right facial and neck pain, right parotid swelling. treated empirically for parotitis with antibiotics and sialogogues. This improved her symptoms TMJ pain? ? Shoulder pain. Had injection, 2020 saw ortho. Helped. PT did not help. ? H/o sciatica ? post laparoscopic appendectomy for acute appendicitis with periappendicitis that a performed for her on June 16, 2016 ? ADD ? Family history of autoimmune disease: grandmother with RA, hip replacements, mother with 2 hip replacements, UC. ? Smoking status: Tobacco Use: Never ? HISTORY REVIEWED (electronic chart updated): PAST MEDICAL HISTORY Diagnosis Date - ADD (attention deficit disorder) 03/13/2016 was on medication till about mid 30's. Adderll once a day. - Anal fissure 05/07/2009 - Appendicitis - Dyslipidemia 07/14/2016 - Inflammatory arthropathy 03/13/2016 Markers elevated but Rheum said negative for Rheumatoid arthritis. 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 Wang PAST SURGICAL HISTORY Procedure Laterality Date - COLONOSCOP W/ OR W/O BRSH SPEC 06/07/2014 repeat 10 yrs - LAPAROSCOPY, SURGICAL, APPENDECTOMY 06/17/16 - REMOVAL OF TONSILS,<12 Y/O 1985 Tonsillectomy alone FAMILY HISTORY Problem Relation Age of Onset - Arthritis Mother VANESSA - Hypertension Mother - Arthritis Father VANESSA - Diabetes Father - Melanoma Father - Breast Cancer Maternal Aunt - Diabetes Paternal Grandfather - No Known Problems Brother - Alzheimer's Disease Maternal Grandfather - Arthritis Maternal Grandmother - Cancer Paternal Grandmother Social History Tobacco Use - Smoking status: Never Smoker - Smokeless tobacco: Never Used Vaping Use - Vaping Use: Never used Substance Use Topics - Alcohol use: Yes Alcohol/week: 4.0 standard drinks Types: 4 Cans of Beer (12oz) per week - Drug use: No Current Outpatient Medications Medication Sig - ergocalciferol 50,000 unit capsule (VITAMIN D2, DRISDOL) Take 1 capsule by mouth one time a week. - mometasone (ELOCON) 0.1 % cream Apply to affected area once daily. - acetaminophen (TYLENOL) 325 mg cap Take 325 mg by mouth twice daily as needed. - naproxen (NAPROSYN) 500 mg tablet Take 1 tablet by mouth twice daily as needed for Pain. Take with food. (Patient not taking: Reported on 04/03/2021 ) - cetirizine (ZYRTEC) 10 mg tablet Take 1 tablet by mouth once daily. No current facility-administered medications for this visit. ALLERGIES Allergen Reactions - Tree And Shrub Poll* Other: See Comments seasonal REVIEW OF SYSTEMS: All other ROS: negative As noted in HPI PHYSICAL EXAMINATION: VIDEO EXAM: (if completed, performed via video enabled technology) GENERAL: alert and appropriate, in no distress, well-hydrated, well nourished and happy, smiling, interactive HLA B 27 neg, TB neg Results for MENDOZA JOHNSON ( ) as of 06/19/2021 09:25 Ref. Range 04/28/2021 11:47 Hep C Antibody IA Latest Ref Range: Negative Negative Hep B Surf Ab Quant Latest Ref Range: <10.00 mIU/mL <3.10 Hep B Surface Ag Latest Ref Range: Negative Negative Hep B Core Ab, Total Latest Ref Range: NEGATNegative Negative Rheumatoid Factor Latest Ref Range: <16 IU/mL <10 CCP Antibody, IgG Latest Ref Range: <20 Units <15 Vitamin D 25 Hydroxy Latest Ref Range: 30.0 - 100.0 ng/mL 25.1 (L) IMPRESSION: NO ACUTE OSSEOUS ABNORMALITY OR EVIDENCE OF INFLAMMATORY ARTHRITIS. 2.3 CM RIGHT OVARIAN DERMOID. ?FOLLOW-UP WITH PELVIC ULTRASOUND IN ONE YEAR RECOMMENDED BASED UPON CONSENSUS CRITERIA. (J Am Col (more content not included)...[facility]08-03-2021 NoteHNO ID: [id number] Author: RT Iain(R) Service: Radiology Author Type: City Controller Type: Progress Notes Filed: 04/28/2021 11:25 AM Note Text: Radiology Service Progress Note PATIENT NAME: Mendoza Johnson DATE OF SERVICE: April 28, 2021 TIME: 11:25 AM PATIENT IDENTITY VERIFICATION COMPLETED USING TWO (2) IDENTIFIERS: Name and Date of confirmed by patient verbally. FALL SCREENING: Has the patient had 2 falls in the last year or 1 fall with injury or currently using an Ambulatory Assistive Device (Walker, Cane, Wheelchair, Crutches, etc.)? No PATIENT GENDER DATA: Female. status: : No status: NO. PATIENT RELEVANT IMPLANT DATA REVIEWED: Not Applicable RADIOLOGY DEPARTMENT: General X-ray: Exam(s) Completed: Spine X-Ray(s): Lumbar AP / LAT / L5-S1 Pelvis X-Ray: sacroiliac joints Lower Extremity X-Ray(s): Feet, Bilateral Upper Extremity X-Ray(s): Hand, bilateral PERIPHERAL IV DATA: Not applicable SIGNED BY: RT Iain(R) April 28, 2021 11:25 [facility]08-03-2021 NoteHNO ID: [id number] Author: Eliane Mo MD Service: ? Author Type: Physician Type: Progress Notes Filed: 04/28/2021 1:47 PM Note Text: RHEUMATOLOGY NEW PATIENT NOTE REFERRING PHYSICIAN: Yang Nieves CHIEF COMPLAINT: Patient presents with: Joint Pain New Patient HPI: Mendoza Johnson is a 45 year old female who presents with joint pain for several years. She was seen by Dr. Gilliland 7 years ago. inflammatory markers were high, rheumatoid was negativeshe was prescribed MTX which did not help. So she weaned off MTX. Joint pain over feet, hips, low back, hands. Pain worsening in the last year. Hands and feet pain are more recent. She likes to be active but unable to do so due to pain. It takes 2 days to recover from work outs. She tried tylenol, ibuprofen. No swelling, may be in hands. AM stiffness lasting 10-15 min. Gelling phenomenon. Pain depends on her activities. She has a stand up desk. Pain happens as soon she rests after activities.she tried voltaren gel. Ulcerative proctitis, was on Asacol which she took for a month. It was not refilled, she never followed up after that. She does not feel colitis is completely under control. Review of records - right facial and neck pain, right parotid swelling. treated empirically for parotitis with antibiotics and sialogogues. This improved her symptoms TMJ pain? Shoulder pain. Had injection, 2020 saw ortho. Helped. PT did not help. H/o sciatica post laparoscopic appendectomy for acute appendicitis with periappendicitis that a performed for her on June 16, 2016 ADD Family history of autoimmune disease: grandmother with RA, hip replacements, mother with 2 hip replacements, UC. Smoking status: Tobacco Use: Never Rheumatology REVIEW OF SYSTEMS: Constitutional: Recent Weight Change: YES gained 20 lb in the last year Fatigue: YES Fever: No Night sweats: No Heent: Alopecia: No H/o Inflammatory eye disease (iritis/scleritis): No Hearing loss: No Frequent sinusitis: No Oral ulcers: No Sicca: No Parotid swelling: No Hoarseness: No Dysphagia: No Heme/lymph: Lymphadenopathy: No Hematological abnormalities (anemia, thrombocytopenia, leukopenia): No Abnormal bleeding: No Skin: Malar or discoid lesions: No Photosensitivity: No Other rashes: No Raynaud's phenomenon: No Hives: No Tightness: No Nodules/bumps: No Easy Bruising: No Nail changes: No H/o psoriasis: No Gastroenterology: Above Respiratory: Dry cough/SOB: No Cardiovascular: Pain in chest: No Musculoskeletal: Per HPI Joint pain or swelling: No Prolonged morning stiffness: No Back pain or neck pain: No Muscle weakness: No Genitourinary: Vaginal dryness: No Rash/ulcers: No Neurological: Headaches: YES Sensitivity or pain of hands and/or feet: YES right hand sometimes may be due to right shoulder issues Psychiatry: Anxiety: No Depression: No Poor sleep: YES non restful. Never had sleep study H/o loss: No H/o thrombosis: No Increased susceptibility to infection: No PAST MEDICAL HISTORY Diagnosis Date - ADD (attention deficit disorder) 03/13/2016 was on medication till about mid 30's. Adderll once a day. - Anal fissure 05/07/2009 - Appendicitis - Dyslipidemia 07/14/2016 - Inflammatory arthropathy 03/13/2016 Markers elevated but Rheum said negative for Rheumatoid arthritis. 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 Wang PAST SURGICAL HISTORY Procedure Laterality Date - COLONOSCOP W/ OR W/O [facility] SPEC 06/07/2014 repeat 10 yrs - LAPAROSCOPY, SURGICAL, APPENDECTOMY 06/17/16 - REMOVAL OF TONSILS,<12 Y/O 1985 Tonsillectomy alone Current Outpatient Medications Medication Sig - acetaminophen (TYLENOL) 325 mg cap Take 325 mg by mouth twice daily as needed. - cetirizine (ZYRTEC) 10 mg tablet Take 1 tablet by mouth once daily. - naproxen (NAPROSYN) 500 mg tablet Take 1 tablet by mouth twice daily as needed for Pain. Take with food. (Patient not taking: Reported on 04/03/2021 ) No current facility-administered medications for this visit. ALLERGIES Allergen Reactions - Tree And Shrub Poll* Other: See Comments seasonal FAMILY HISTORY Problem Relation Age of Onset - Arthritis Mother VANESSA - Hypertension Mother - Arthritis Father VANESSA - Diabetes Father - Melanoma Father - Breast Cancer Maternal Aunt - Diabetes Paternal Grandfather - No Known Problems Brother - Alzheimer's Disease Maternal Grandfather - Arthritis Maternal Grandmother - Cancer Paternal Grandmother Social History Tobacco Use - Smoking status: Never Smoker - Smokeless tobacco: Never Used Vaping Use - Vaping Use: Never used Substance Use Topics - Alcohol use: Yes Alcohol/week: 4.0 standard drinks Types: 4 Cans of Beer (12oz) per week - Drug use: No 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 FALL SCREENING: Has the patient had 2 falls in the last year or 1 fall with injury or currently using an Ambulatory Assistive Device (Walker, Cane, Wheelchair, Crutches, etc.)? No PATIENT GENDER DATA: Female. status: : No status: NO. PATIENT RELEVANT IMPLANT DATA REVIEWED: Not Applicable RADIOLOGY DEPARTMENT: General X-ray: Exam(s) Completed: Spine X-Ray(s): Lumbar AP / LAT / L5-S1 PERIPHERAL IV DATA: Not applicable SIGNED BY: RT Law November 22, 2020 11:42 AM [facility] [place] [facility]* Diagnosis Encounter for gynecological examination with abnormal finding- Primary Routine gynecological examination Menorrhagia with irregular cycle Excessive or frequent menstruation Vaginal yeast infection Candidiasis of vulva and vagina Encounter for screening mammogram for breast cancer documented [facility] [place] [facility]* Diagnosis Encounter for screening mammogram for breast cancer documented [facility] this [facility] [place] [facility]* Diagnosis Excessive bleeding in premenopausal period- Primary Premenopausal menorrhagia [facility] [place] [facility]* Diagnosis Excessive bleeding in premenopausal period- Primary Premenopausal menorrhagia documented [facility] [place] [facility]* Diagnosis Hypertension, essential- Primary Unspecified essential hypertension [facility] [place] [facility]* Diagnosis Hypertension, essential Unspecified essential hypertension [facility] [place] [facility]* Diagnosis Well adult exam- Primary Routine general medical examination at a health care facility Hypertension, essential Unspecified essential hypertension Dyslipidemia Other and unspecified hyperlipidemia Encounter for screening for diabetes mellitus Screening for diabetes mellitus 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 Arthropathy, unspecified, site unspecified 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) documented [facility] [place] [facility]* Diagnosis Encounter for IUD insertion- Primary Encounter for insertion of intrauterine contraceptive device Menorrhagia with irregular cycle Excessive or frequent menstruation Dysmenorrhea [facility]* Diagnosis Neck pain on right side- Primary Cervicalgia documented [facility] [place] [facility]* Diagnosis Mild episode of recurrent major depressive disorder (HCC)- Primary Hypertension, essential Unspecified essential hypertension Encounter for immunization Need for other specified prophylactic vaccination against single bacterial disease documented [facility] [place] [facility]* Diagnosis IUD check up- Primary Surveillance of previously prescribed intrauterine contraceptive device documented [facility] [place] [facility]* Diagnosis Parotitis, acute- Primary Sialoadenitis documented in this encounter [facility] [place] noteNo assessment information availableWWood County Hospital Work Phone: Evaluation note* Diagnosis Hypertension, essential Unspecified essential hypertension documented [facility] [place] [facility]* Diagnosis Encounter for screening mammogram for breast cancer documented [facility] [place] [facility]* Diagnosis Pain- Primary Generalized pain documented [facility] [place] [facility]* Diagnosis Calcific tendonitis- Primary Calcium deposits in tendon and bursa documented in this encounter [facility] [place] [facility]* Diagnosis Pain Generalized pain documented [facility] [place] [facility]* Diagnosis Calcific tendinitis of right shoulder- Primary Calcifying tendinitis of shoulder documented [facility] [place] [facility]* Diagnosis Calcific tendonitis Calcium deposits in tendon and bursa documented in this encounter [facility] [place] [facility]* Diagnosis Calcific tendinitis of right shoulder- Primary Calcifying tendinitis of shoulder documented [facility] [place] [facility]* Diagnosis Calcific tendinitis of right shoulder- Primary Calcifying tendinitis of shoulder [facility]* Diagnosis Calcific tendinitis of right shoulder- Primary Calcifying tendinitis of shoulder [facility]* Diagnosis Calcific tendinitis of right shoulder- Primary Calcifying tendinitis of shoulder documented in this encounter [facility] [place] [facility]* Diagnosis Calcific tendinitis of right shoulder- Primary Calcifying tendinitis of shoulder [facility] [place] [facility]* Diagnosis Calcific tendinitis of right shoulder- Primary Calcifying tendinitis of shoulder documented [facility] this encounter [facility] [place] [facility]* Diagnosis Acute cough documented in this encounter [facility] for referral (narrative)* Diagnostic Procedure Only (Routine) - Authorized Specialty Diagnoses / Procedures Referred By Antwon t Referred To Contact [facility] Diagnoses Menorrhagia with irregular cycle Procedures PELVIC US WHI US PELVIC NONOBSTETRIC REAL-TIME IMAGE COMPLETE Lucina Wang APRN.CNP [address] [place] [place] [address] [facility] [address] [place] [address] Referral ID Status Reason Start Date Expiration Date Visits Requested Visits Authorized [id number] Authorized Auto-Generat ed Referral 04/20/2022 04/20/2023 1 1 * Diagnostic Procedure Only (Routine) - Pending Review Specialty Diagnoses / Procedures Referred By Antwon t Referred To Contact [facility] Diagnoses Encounter for screening mammogram for breast cancer Procedures MARCELA SCREENING SCREENING MAMMOGRAPHY BI 2-VIEW BREAST INC Lucina Burns APRN.CNP [address] [place] [address] [facility] [address] [place] [address] Referral ID Status Reason Start Date Expiration Date Visits Requested Visits Authorized [id number] Pending Review Auto-Generat ed Referral 04/20/2022 05/20/2023 1 1 [facility] for referral (narrative)* Diagnostic Procedure Only (Routine) - Closed Specialty Diagnoses / Procedures Referred By Contac t Referred To Contact [facility] Diagnoses Encounter for screening mammogram for breast cancer Procedures MARCELA SCREENING SCREENING MAMMOGRAPHY BI 2-VIEW BREAST INC CAD Yang Nieves MD [address] [place] [address] [facility] [address] [place] [address] Referral ID Status Reason Start Date Expiration Date V isits Requested Visits Authorized [id number] Closed Auto-Generate d Referral 11/18/2021 12/18/2022 1 1 [facility] for referral (narrative)* Outpatient Procedure (Routine) - Pending Review Specialty Diagnoses / Procedures Referred By Contac t Referred To Contact [facility] Diagnoses Excessive bleeding in premenopausal period Procedures ENDOMETRIAL BIOPSY ENDOMETRIAL BX W/WO ENDOCERVIX BX W/O DILAT SPX Lucina Wang APRN.TYPE PHOTOGRAPHY SUPERVISOR [address] [place] [address] [facility] [address] [place] [address] Referral ID Status Reason Start Date Expiration Date Visits Requested Visits Authorized [id number] Pending Review Auto-Generat ed Referral 05/14/2022 05/14/2023 1 1 * Outpatient Procedure (Routine) - Pending Review Specialty Diagnoses / Procedures Referred By Contac t Referred To Contact [facility] Diagnoses Excessive bleeding in premenopausal period Procedures INSERT INTRAUTERINE DEVICE LEVONORGESTREL IU 52MG 5 YR INSERT INTRAUTERINE DEVICE Lucina Wang APRN.TYPE PHOTOGRAPHY SUPERVISOR [address] [place] [address] [address] Referral ID Status Reason Start Date Expiration Date Visits Requested Visits Authorized [id number] Pending Review Auto-Generat ed Referral 05/14/2022 05/14/2023 1 1 [facility] for referral (narrative)* Diagnostic Procedure Only (Routine) - Pending Review Specialty Diagnoses / Procedures Referred By Contac t Referred To Contact [facility] Diagnoses Encounter for screening mammogram for breast cancer Procedures MARCELA SCREENING SCREENING MAMMOGRAPHY BI 2-VIEW BREAST INC CAD Yang Nieves MD [address] [place] [address] [facility] [address] [place] [address] Referral ID Status Reason Start Date Expiration Date Visits Requested Visits Authorized [id number] Pending Review Auto-Generat ed Referral 05/25/2023 06/23/2024 1 1 [facility] for referral (narrative)* Diagnostic Procedure Only (Routine) - Authorized Specialty Diagnoses / Procedures Referred By Contac t Referred To Contact [facility] Diagnoses Pain Procedures XR SHOULDER GENERAL 3V OR MORE AP/TRUE AP/OTHER RIGHT RADEX SHOULDER COMPLETE MINIMUM 2 VIEWS Benjamin Gagnon MD [address] [place] [address] [place] [address] Referral ID Status Reason Start Date Expiration Date Visits Requested Visits Authorized [id number] Authorized Auto-Generat ed Referral 02/06/2024 03/07/2025 1 1 T [facility] for referral (narrative)* Diagnostic Procedure Only (Urgent) - Authorized Specialty Diagnoses / Procedures Referred By Contac t Referred To Contact [facility] Diagnoses Calcific tendonitis Procedures US SHOULDER RIGHT US COMPL JOINT R-T W/IMAGE DOCUMENTATION Benjamin Gagnon MD [address] [place] [address] [place] [address] Referral ID Status Reason Start Date Expiration Date Visits Requested Visits Authorized [id number] Authorized Auto-Generat ed Referral 02/08/2024 03/09/2025 1 1 T [facility] for referral (narrative)* Diagnostic Procedure Only (Urgent) - Closed Specialty Diagnoses / Procedures Referred By Contac t Referred To Contact [facility] Diagnoses Calcific tendonitis Procedures US SHOULDER RIGHT US COMPL JOINT R-T W/IMAGE DOCUMENTATION Benjamin Gagnon MD [address] [place] [address] [place] [address] Referral ID Status Reason Start Date Expiration Date V isits Requested Visits Authorized [id number] Closed Auto-Generate d Referral 02/08/2024 03/09/2025 1 1 [facility] for referral (narrative)No reason for referral information availableIndiana University [facility] Work Phone: [facility] Narrative* Diagnostic Procedure Only (Routine) - Closed Specialty Diagnoses / Procedures Referred By Contac t Referred To Contact [facility] Diagnoses Encounter for screening mammogram for breast cancer Procedures AMRCELA SCREENING SCREENING MAMMOGRAPHY BI 2-VIEW BREAST INC CAD Yang Nieves MD [address] [place] [address] [facility] [address] [place] [address] Referral ID Status Reason Start Date Expiration Date V isits Requested Visits Authorized [id number] Closed Auto-Generate d Referral 11/18/2021 12/18/2022 1 1 [facility] for visit Narrative* Diagnostic Procedure Only (Urgent) - Closed Specialty Diagnoses / Procedures Referred By Contac t Referred To Contact [facility] Diagnoses Calcific tendonitis Procedures US SHOULDER RIGHT US COMPL JOINT R-T W/IMAGE DOCUMENTATION Benjamin Gagnon MD [address] [place] [address] [place] [address] Referral ID Status Reason Start Date Expiration Date V isits Requested Visits Authorized [id number] Closed Auto-Generate d Referral 02/08/2024 03/09/2025 1 1 [facility] Summary Purpose Family History No Family History Records FoundNo Family History Records FoundNo Family History Records Found Advance Directives No Advanced Directives Records Found Advance Directive Response Recorded Date/ Time Advance Directives No May 12:55am Living Will No April 14, 2017 1:40pm Power of Field Representatives Director No April 14 7 1:40pm Advance Directive Response Recorded Date/ Time Advance Directives No May 12:55am Living Will No April 28, 2023 6:43am Power of Field Representatives Director No April 28 6:43am Advance Directive Response Recorded Date/ Time Advance Directives No May h2015 11:55pm Living Will No August 24, 2 023 8:54pm Power of Field Representatives Director No August 24, 2023 8:54pm Advance Directive Response Recorded Date/ Time Advance Directives No May 12:55am Reason for Referral Specialty Diagnoses / Procedures Referred By Contac t Referred To Contact Gastroenterology Diagnoses 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) Procedures CONSULT TO GASTROENTEROLOGY OFFICE/OUTPATIENT [facility] 60-74 MINUTES Cyn Berry PA-C [address] [place] [address] Referral ID Status Reason Start Date Expiration Date Visits Requested Visits Authorized [id number] Authorized PCP Requested Referral 07/27/2022 07/27/2023 1 1 Medications Administered Section Inactive Administered Medications - up to 3 most recent administrations Medication Order MAR Action Action Date Dose Rate Site levonorgestrel 20 mcg/24 hours (8 yrs) 52 mg 1 Each intrauterine device (MIRENA) 1 Each, INTRAUTERINE, ONCE (UP TO 30 DAYS AMB), 1 dose, On Reyna 08/05/22 at 1000, Hazardous Potential Reproductive Risk Drug: Use appropriate PPE. Given 08/05/2022 9:38 AM EST 1 Each Chief Complaint and Reason for Visit Chief Complaint PALPITATIONS Chief Complaint PALPITATIONS ABDOMINAL PAIN Chief Complaint Admit Date Rash January 07, 2025 6:5 4am ABDOMINAL DISCOMFORT April 15, 2025 8:3 2am Reason for Visit Admit Date Allergic dermatitis January 07, 2025 6:5 4am History of palpitations January 07, 2025 6:54am Bloating April 15, 2025 8:32 am Diarrhea April 15, 2025 8:32 am Additional Source Comments INFORMATION SOURCE (unrecogn ized section and content) DATE CREATED AUTHOR 12/15/2021 [facility] DATE CREATED AUTHOR AUTHOR'S ORGANIZ ATION 06/16/2024 [facility] DATE CREATED AUTHOR AUTHOR'S ORGANIZ ATION 04/23/2025 [facility] Source Comments (unrecognize d section and content) In the event this informatio n is protected by the Federal Confidentiality of Alcohol and Drug Abuse Patient Records regulations: The Federal rules restrict any use of the information to criminally investigate or prosecute any alcohol or drug abuse patient.[facility] the event this information is protected by the Federal Confidentiality of Alcohol and Drug Abuse Patient Records regulations: The Federal rules restrict any use of the information to criminally investigate or prosecute any alcohol or drug abuse patient.[facility] Hospital[facility] the event this information is protected by the Federal Confidentiality of Alcohol and Drug Abuse Patient Records regulations: The Federal rules restrict any use of the information to criminally investigate or prosecute any alcohol or drug abuse patient.[facility] Hospital[facility] the event this information is protected by the Federal Confidentiality of Alcohol and Drug Abuse Patient Records regulations: The Federal rules restrict any use of the information to criminally investigate or prosecute any alcohol or drug abuse patient.[facility] Hospital[facility] the event this information is protected by the Federal Confidentiality of Alcohol and Drug Abuse Patient Records regulations: The Federal rules restrict any use of the information to criminally investigate or prosecute any alcohol or drug abuse patient.[facility] Hospital[facility] the event this information is protected by the Federal Confidentiality of Alcohol and Drug Abuse Patient Records regulations: The Federal rules restrict any use of the information to criminally investigate or prosecute any alcohol or drug abuse patient.[facility] HospitalIn the event this information is protected by the Federal Confidentiality of Alcohol and Drug Abuse Patient Records regulations: The Federal rules restrict any use of the information to criminally investigate or prosecute any alcohol or drug abuse patient.[facility] HospitalIn the event this information is protected by the Federal Confidentiality of Alcohol and Drug Abuse Patient Records regulations: The Federal rules restrict any use of the information to criminally investigate or prosecute any alcohol or drug abuse patient.[facility] HospitalIn the event this information is protected by the Federal Confidentiality of Alcohol and Drug Abuse Patient Records regulations: The Federal rules restrict any use of the information to criminally investigate or prosecute any alcohol or drug abuse patient.[facility] Hospital[facility] the event this information is protected by the Federal Confidentiality of Alcohol and Drug Abuse Patient Records regulations: The Federal rules restrict any use of the information to criminally investigate or prosecute any alcohol or drug abuse patient.[facility] Hospital[facility] the event this information is protected by the Federal Confidentiality of Alcohol and Drug Abuse Patient Records regulations: The Federal rules restrict any use of the information to criminally investigate or prosecute any alcohol or drug abuse patient.[facility] HospitalIn the event this information is protected by the Federal Confidentiality of Alcohol and Drug Abuse Patient Records regulations: The Federal rules restrict any use of the information to criminally investigate or prosecute any alcohol or drug abuse patient.[facility] HospitalIn the event this information is protected by the Federal Confidentiality of Alcohol and Drug Abuse Patient Records regulations: The Federal rules restrict any use of the information to criminally investigate or prosecute any alcohol or drug abuse patient.[facility] HospitalIn the event this information is protected by the Federal Confidentiality of Alcohol and Drug Abuse Patient Records regulations: The Federal rules restrict any use of the information to criminally investigate or prosecute any alcohol or drug abuse patient.[facility] HospitalIn the event this information is protected by the Federal Confidentiality of Alcohol and Drug Abuse Patient Records regulations: The Federal rules restrict any use of the information to criminally investigate or prosecute any alcohol or drug abuse patient.[facility] HospitalIn the event this information is protected by the Federal Confidentiality of Alcohol and Drug Abuse Patient Records regulations: The Federal rules restrict any use of the information to criminally investigate or prosecute any alcohol or drug abuse patient.[facility] HospitalIn the event this information is protected by the Federal Confidentiality of Alcohol and Drug Abuse Patient Records regulations: The Federal rules restrict any use of the information to criminally investigate or prosecute any alcohol or drug abuse patient.[facility] HospitalIn the event this information is protected by the Federal Confidentiality of Alcohol and Drug Abuse Patient Records regulations: The Federal rules restrict any use of the information to criminally investigate or prosecute any alcohol or drug abuse patient.[facility] HospitalIn the event this information is protected by the Federal Confidentiality of Alcohol and Drug Abuse Patient Records regulations: The Federal rules restrict any use of the information to criminally investigate or prosecute any alcohol or drug abuse patient.[facility] HospitalIn the event this information is protected by the Federal Confidentiality of Alcohol and Drug Abuse Patient Records regulations: The Federal rules restrict any use of the information to criminally investigate or prosecute any alcohol or drug abuse patient.[facility] HospitalIn the event this information is protected by the Federal Confidentiality of Alcohol and Drug Abuse Patient Records regulations: The Federal rules restrict any use of the information to criminally investigate or prosecute any alcohol or drug abuse patient.[facility] HospitalIn the event this information is protected by the Federal Confidentiality of Alcohol and Drug Abuse Patient Records regulations: The Federal rules restrict any use of the information to criminally investigate or prosecute any alcohol or drug abuse patient.[facility] HospitalIn the event this information is protected by the Federal Confidentiality of Alcohol and Drug Abuse Patient Records regulations: The Federal rules restrict any use of the information to criminally investigate or prosecute any alcohol or drug abuse patient.[facility] HospitalIn the event this information is protected by the Federal Confidentiality of Alcohol and Drug Abuse Patient Records regulations: The Federal rules restrict any use of the information to criminally investigate or prosecute any alcohol or drug abuse patient.[facility] HospitalIn the event this information is protected by the Federal Confidentiality of Alcohol and Drug Abuse Patient Records regulations: The Federal rules restrict any use of the information to criminally investigate or prosecute any alcohol or drug abuse patient.[facility] HospitalIn the event this information is protected by the Federal Confidentiality of Alcohol and Drug Abuse Patient Records regulations: The Federal rules restrict any use of the information to criminally investigate or prosecute any alcohol or drug abuse patient.[facility] HospitalIn the event this information is protected by the Federal Confidentiality of Alcohol and Drug Abuse Patient Records regulations: The Federal rules restrict any use of the information to criminally investigate or prosecute any alcohol or drug abuse patient.[facility] HospitalIn the event this information is protected by the Federal Confidentiality of Alcohol and Drug Abuse Patient Records regulations: The Federal rules restrict any use of the information to criminally investigate or prosecute any alcohol or drug abuse patient.[facility] the event this information is protected by the Federal Confidentiality of Alcohol and Drug Abuse Patient Records regulations: The Federal rules restrict any use of the information to criminally investigate or prosecute any alcohol or drug abuse patient.[facility] HospitalIn the event this information is protected by the Federal Confidentiality of Alcohol and Drug Abuse Patient Records regulations: The Federal rules restrict any use of the information to criminally investigate or prosecute any alcohol or drug abuse patient.[facility] HospitalIn the event this information is protected by the Federal Confidentiality of Alcohol and Drug Abuse Patient Records regulations: The Federal rules restrict any use of the information to criminally investigate or prosecute any alcohol or drug abuse patient.[facility] ClinicIn the event this information is protected by the Federal Confidentiality of Alcohol and Drug Abuse Patient Records regulations: The Federal rules restrict any use of the information to criminally investigate or prosecute any alcohol or drug abuse patient.[facility] HospitalIn the event this information is protected by the Federal Confidentiality of Alcohol and Drug Abuse Patient Records regulations: The Federal rules restrict any use of the information to criminally investigate or prosecute any alcohol or drug abuse patient.[facility] HospitalIn the event this information is protected by the Federal Confidentiality of Alcohol and Drug Abuse Patient Records regulations: The Federal rules restrict any use of the information to criminally investigate or prosecute any alcohol or drug abuse patient.[facility] HospitalIn the event this information is protected by the Federal Confidentiality of Alcohol and Drug Abuse Patient Records regulations: The Federal rules restrict any use of the information to criminally investigate or prosecute any alcohol or drug abuse patient.[facility] HospitalIn the event this information is protected by the Federal Confidentiality of Alcohol and Drug Abuse Patient Records regulations: The Federal rules restrict any use of the information to criminally investigate or prosecute any alcohol or drug abuse patient.[facility] HospitalIn the event this information is protected by the Federal Confidentiality of Alcohol and Drug Abuse Patient Records regulations: The Federal rules restrict any use of the information to criminally investigate or prosecute any alcohol or drug abuse patient.[facility] HospitalIn the event this information is protected by the Federal Confidentiality of Alcohol and Drug Abuse Patient Records regulations: The Federal rules restrict any use of the information to criminally investigate or prosecute any alcohol or drug abuse patient.[facility] HospitalIn the event this information is protected by the Federal Confidentiality of Alcohol and Drug Abuse Patient Records regulations: The Federal rules restrict any use of the information to criminally investigate or prosecute any alcohol or drug abuse patient.[facility] HospitalIn the event this information is protected by the Federal Confidentiality of Alcohol and Drug Abuse Patient Records regulations: The Federal rules restrict any use of the information to criminally investigate or prosecute any alcohol or drug abuse patient.[facility] HospitalIn the event this information is protected by the Federal Confidentiality of Alcohol and Drug Abuse Patient Records regulations: The Federal rules restrict any use of the information to criminally investigate or prosecute any alcohol or drug abuse patient.[facility] HospitalIn the event this information is protected by the Federal Confidentiality of Alcohol and Drug Abuse Patient Records regulations: The Federal rules restrict any use of the information to criminally investigate or prosecute any alcohol or drug abuse patient.[facility] Care Teams (unrecognized sec tion and content) [employer] Relationship Specialty Start Date End Date Yang Nieves MD [address] [place], [place] [id number] PCP - General Family Practice 03/13/16 [employer] Relationship Specialty Start Date End Date Yang Nieves MD [address] [facility] [place] [address] PCP - General Family Practice 03/13/16 [employer] Relationship Specialty Start Date End Date Yang Nieves MD [address] [facility] [place] [address] PCP - General Family Practice 03/13/16 [employer] Relationship Specialty Start Date End Date Yang Nieves MD [address] [place] [address], [place] [address] PCP - General Family Practice 03/13/16 [employer] Relationship Specialty Start Date End Date Yang Nieves MD [address] [place] [address], [place] [address] PCP - General Family Practice 03/13/16 [employer] Relationship Specialty Start Date End Date Yang Nieves MD [facility] [place] [address] PCP - General Family Practice 03/13/16 [employer] Relationship Specialty Start Date End Date Yang Nieves MD [facility] [place] [address] PCP - General Family Practice 03/13/16 [employer] Relationship Specialty Start Date End Date Yang Nieves MD [facility] [place] [address] PCP - General Family Medicine 03/13/16 [employer] Relationship Specialty Start Date End Date Yang Nieves MD [address] [place] [address], [place] [address] PCP - General Family Medicine 03/13/16 [employer] Relationship Specialty Start Date End Date Yang Nieves MD [address] [place] [address], [place] [address] PCP - General Family Medicine 03/13/16 [employer] Relationship Specialty Start Date End Date Yang Nieves MD [address] [facility] [place] [address] PCP - General Family Medicine 03/13/16 [employer] Relationship Specialty Start Date End Date Yang Nieves MD [address] [facility] [place] [address] PCP - General Family Medicine 03/13/16 [employer] Relationship Specialty Start Date End Date Yang Nieves MD [address] [facility] [place] [address] PCP - General Family Medicine 03/13/16 [employer] Relationship Specialty Start Date End Date Yang Nieves MD [address] [place] [address], [place] [address] PCP - General Family Medicine 03/13/16 [employer] Relationship Specialty Start Date End Date Yang Nieves MD [address] [facility] [place] [address] PCP - General Family Medicine 03/13/16 [employer] Relationship Specialty Start Date End Date Yang Nieves MD [facility] [place] [address] PCP - General Family Medicine 03/13/16 [employer] Relationship Specialty Start Date End Date Yang Nieves MD [address] [facility] [place] [address] PCP - General Family Medicine 03/13/16 [employer] Relationship Specialty Start Date End Date Yang Nieves MD [facility] [place] [address] PCP - General Family Medicine 03/13/16 Team Status: Active Member Role Status Dates Dr. Yang Nieves MD Family Provider Active Dr. Yang Nieves MD Primary Care Provider Active Team Status: Inactive Member Role Status Dates Dr. Yang Nieves MD Primary Care Provider Active Dr. Trent Velazquez DO Attending Provider, Referring Pr ovider Active Team Status: Active Member Role Status Dates Dr. Yang Nieves MD Family Provider Active Dr. Trent Velazquez DO Primary Care Provider Active Team Status: Inactive Member Role Status Dates Dr. Trent Velazquez DO Primary Care Provider Active Dr. Bo Young MD Emergency Provider Active [employer] Relationship Specialty Start Date End Date Yang Nieves MD [address] [place] [address] PCP - General Family Medicine 03/13/16 Team Status: Inactive Member Role Status Dates Dr. Trent Velazquez DO Primary Care Provider Active Dr. Bo Young MD Attending Provider, Emergency Provi mila Active Team Status: Inactive Member Role Status Dates Dr. Trent Velazquez DO Primary Care Provider Active Dr. Griselda Stewart DO Emergency Provider Active [employer] Relationship Specialty Start Date End Date Trent Velazquez DO [address] [place] [address] PCP - General Family Medicine 12/22/23 [employer] Relationship Specialty Start Date End Date Trent Velazquez DO [address] [place] [address] PCP - General Family Medicine 12/22/23 [employer] Relationship Specialty Start Date End Date Trent Velazquez DO [address] [place] [address] PCP - General Family Medicine 12/22/23 [employer] Relationship Specialty Start Date End Date Trent Velazquez DO [address] [place] [address] PCP - General Family Medicine 12/22/23 [employer] Relationship Specialty Start Date End Date Trent Velazquez DO [address] [place] [address] PCP - General Family Medicine 12/22/23 [employer] Relationship Specialty Start Date End Date Labor, Trent Martínez DO [address] [place] [address] PCP - General Family Medicine 12/22/23 [employer] Relationship Specialty Start Date End Date Labor, Trent Martínez DO [address] [place] [address] PCP - General Family Medicine 12/22/23 [employer] Relationship Specialty Start Date End Date Labor, Trent Martínez DO [address] [place] [address] PCP - General Family Medicine 12/22/23 [employer] Relationship Specialty Start Date End Date Labor, Trent Martínez DO [address] [place] [address] PCP - General Family Medicine 12/22/23 [employer] Relationship Specialty Start Date End Date Labor, Trent Martínez DO [address] [place] [address] PCP - General Family Medicine 12/22/23 [employer] Relationship Specialty Start Date End Date Labor, Trent Martínez DO [address] [place] [address] PCP - General Family Medicine 12/22/23 [employer] Relationship Specialty Start Date End Date Labor, Trent Martínez DO [address] [place] [address] PCP - General Family Medicine 12/22/23 [employer] Relationship Specialty Start Date End Date Labor, Trent Martínez DO [address] [place] [address] PCP - General Family Medicine 12/22/23 [employer] Relationship Specialty Start Date End Date Trent Velazquez DO [address] [place] [address] PCP - General Family Medicine 12/22/23 [employer] Relationship Specialty Start Date End Date Yang Nieves MD [address] [place] [address] PCP - General Family Medicine 03/13/16 12/21/23 Team Status: Active Member Role/Relationship Status Dates Dr. Yang Nieves MD Family Provider Active Dr. Trent Velazquez DO Primary Care Provider Active Team Status: Inactive Member Role/Relationship Status Dates Dr. Trent Velazquez DO Primary Care Provider Active Start: January 07, 2025 End: January 07, 2025 Dr. Trent Velazquez DO Referring Provider Active Start: January 07, 2025 End: January 07, 2025 Rojelio BAI, PA Attending Provider Active Start: January 07, 2025 End: January 07, 2025 Team Status: Inactive Member Role/Relationship Status Dates Dr. Trent Velazquez DO Primary Care Provider Active Start: April 15, 2025 End: April 15, 2025 Dr. Trent Velazquez DO Referring Provider Active Start: April 15, 2025 End: April 15, 2025 Dr. Axel Castaneda DO Attending Provider Active Start: April 15, 2025 End: April 15, 2025 Reason for Visit (unrecogniz ed section and content) Reason Comments PT Discharge Specialty Diagnoses / Procedures Referred By Antwon martínez Referred To Contact [facility] Diagnoses Calcific tendinitis of right shoulder Procedures CONSULT TO PHYSICAL THERAPY PHYSICAL THERAPY EVALUATION HIGH COMPLEX 45 MINS Chey Plata DO [address] [place] [address] [facility] [address] [place] [address] Referral ID Status Reason Start Date Expiration Date Visits Requested Visits Authorized [id number] Authorized Auto-Generat ed Referral 09/26/2023 09/25/2024 40 40 Reason Comments Physical Therapy Reason Comments PT Progress Note Reason Comments Well Woman Reason Comments [employer] Ultrasound Reason Comments Results Orders New Medication Reason Comments Acute Visit Elevated BP Reason Comments Refill Request Reason Comments Yearly Exam Reason Comments Request Outside Medical Records Reason Comments Results Reason Onset Date Comments Insertion Of IUD 08/05/2022 Specialty Diagnoses / Procedures Referred By Antwon t Referred To Contact [facility] Diagnoses Excessive bleeding in premenopausal period Encounter for insertion of intrauterine contraceptive device Encounter for removal of intrauterine contraceptive device Procedures INSERT INTRAUTERINE DEVICE LEVONORGESTREL IU 52MG 5 YR INSERT INTRAUTERINE DEVICE REMOVE INTRAUTERINE DEVICE Lucina Wang APRN.[employer] [address] [place] [address] [facility] [address] [place] [address] Referral ID Status Reason Start Date Expiration Date Visits Requested Visits Authorized [id number] Authorized Auto-Generat ed Referral 05/24/2022 09/25/2022 2 2 Reason Comments Recheck Reason Comments iud check 4 week follow up Reason Comments jaw pain X 5 days Reason Onset Date Comments Refill Request 03/10/2023 Reason Comments New Pain Reason Comments Appointment with Dr. Plata or Dr. Fregoso Reason Comments Appointment Reason Comments Radio Gen RMP Specialty Diagnoses / Procedures Referred By Antwon t Referred To Contact X[facility] IMAGING Diagnoses Pain Procedures XR SHOULDER GENERAL 3V OR MORE AP/TRUE AP/OTHER RIGHT RADEX SHOULDER COMPLETE MINIMUM 2 VIEWS Benjamin Gagnon MD [address] [place] [address] [place] [id number] Referral ID Status Reason Start Date Expiration Date V isits Requested Visits Authorized [id number] Closed Auto-Generate d Referral 02/06/2024 03/07/2025 1 1 Reason Comments New Pain (Shoulder Pain) Reason Comments Medication Question Specialty Diagnoses / Procedures Referred By Antwon t Referred To Contact Orthopedics / ORTHOPAEDIC SURGERY Diagnoses Calcific tendinitis of right shoulder (M75.31) Calcific tendinitis of right shoulder Procedures US GUIDANCE NEEDLE PLACEMENT IMG S&I TENOTOMY SHOULDER AREA 1 TENDON TENOTOMY WITH ULTRASOUND GUIDE - RIGHT SHOULDER Chey Plata, DO [address] [place] [address] Chey Plata Maribel, DO [address] [place] [address] Referral ID Status Reason Start Date Expiration Date Visits Re quested Visits Authorized [id number] Closed 03/05/2024 09/25/2024 1 1 Reason Comments PT Eval Goals (unrecognized section and content) Goals may be documented in a n alternate sectionGoals may be documented in an alternate sectionGoals may be documented in an alternate sectionGoals may be documented in an alternate section FOR RECORDS PERTAINING TO PATIENTS WHO ARE OR HAVE BEEN ENROLLED IN A CHEMICAL DEPENDENCY/SUBSTANCEABUSE PROGRAM, SOME INFORMATION MAY BE OMITTED. This clinical summary was aggregated from multiple sources. Caution should be exercised in using it in the provision of clinical care. This summary normalizes information from multiple sources, and as a consequence, information in this document may materially change the coding, format and clinical context of patient data. In addition, data may be omitted in some cases. CLINICAL DECISIONS SHOULD BE BASED ON THE PRIMARY CLINICAL RECORDS. [employer] [facility]. provides no warranty or guarantee of the accuracy or completeness of information in this document.
[2025-05-02 08:29] LABS: Hematocrit 39.4 % (37-47); Hemoglobin 13.0 g/dL (12.0-15.0); Immature Granulocytes Count 0.040 X10^3/uL (0.0-0.0); Mean Corp Hgb Conc 33.0 g/dL (32-36); Mean Corpuscular Volume 87.8 fL (81-99); Mean Platelet Vol. 11.7 fl (6.2-12.0); NRBC Flagged by Analyzer 0 % (0-5); Platelet Count 277 K/mm3 (150-450); RBC Distribution Width CV 12.4 % (11.6-14.6); RBC Distribution Width SD 39.7 fl (35.1-43.9); Red Blood Count 4.49 M/mm3 (4.2-5.4); White Blood Count 8.3 K/mm3 (4.4-11.0)
[2025-05-02 09:27] LABS: AST(SGOT) 26 U/L (<=31); Alanine Aminotransfer ALT/SGPT 27 U/L (<=34); Albumin, Serum 4.1 g/dL (3.5-5.0); Alkaline Phosphatase 114 U/L (35-104); Anion Gap 14 (5-15); BUN 15 mg/dL (4-19); BUN/Creat Ratio 19.7 RATIO (10-20); CRP 14.70 mg/L (0.0-3.0); Calcium,Total 9.0 mg/dL (7.6-11.0); Carbon Dioxide 21.1 mmol/L (21.0-32.0); Chloride 104 mmol/L (98-108); Ferritin 103 ng/mL (22-378); Free T3 3.0 pg/mL (2.18-3.98); Globulin 3.3 g/dL (2.2-4.2); Glucose 98 mg/dL (70-99); LDH 166 U/L (84-246); Magnesium 2.0 mg/dL (1.5-2.2); Potassium 4.0 mmol/L (3.3-5.1); Vitamin B12 790 pg/mL (180-914)
[2025-05-07 00:07] LABS: Anti-Chromatin <0.2 AI (0.0-0.9); Anti-Jo <0.2 AI (0.0-0.9); Anti-dsDNA Ab <1 IU/mL (0-9); Egg, Whole <0.10 kU/L (Class 0); Mussels <0.10 kU/L (Class 0); SJOGREN'S Anti-SS-A test < 0.2 AI (0.0-0.9); SJOGREN'S Anti-SS-B test < 0.2 AI (0.0-0.9)
== END | disposition home or self-care (01) ==
PROVIDERS: PCP Family Medicine; Referring Provider Internal Medicine Gastroenterology; Visit Provider Internal Medicine Gastroenterology
DX: R19.7 Diarrhea, unspecified (principal); R14.0 Abdominal distension (gaseous)
CPT/HCPCS: 36415; 80053; 82607; 82728; 82784; 82785; 82941; 83516; 83615; 83735; 84100; 84165; 84439; 84443; 84481; 85025; 85652; 86003; 86005; 86036; 86037; 86140; 86225; 86235; 86255; 86334; 86480; 86671

== ENCOUNTER → 2025-05-08 | Outpatient (CLI) | payer OTHER, SELFPAY ==
--- OUTSIDE RECORDS SUMMARY | 2025-05-08 18:48 | XMS RPT_ITS | CCD ---
Author Organization [facility] Care Team Providers Care Resin Remover Name Role Phone Yang Nieves MD Primary Care Provider Labor DO, Trent T Primary Care Provider [phone] LABOR, TRENT T Primary Care Unavailable PLATA, CHEY D Referring Unavailable PLATA, CHEY D Attending Unavailable LABOR, TRENT T Primary Care Unavailable BENJAMIN GAGNON Attending Unavailable LABOR, TRENT T Referring Unavailable [...] Unavailable LABOR, TRENT T Primary Care Unavailable BENJAMIN GAGNON Referring Unavailable LABOR, TRENT T Primary Care Unavailable PLATA, CHEY D Attending Unavailable LABOR, TRENT T Primary Care Unavailable BENJAMIN GAGNON Referring Unavailable Yang Nieves MD Primary Care Provider Labor DO, Dr. Serra Primary Care Provider Labor DO, Dr. Serra Referring Provider [phone] Rojelio Chase Attending Provider [phone] Friend DO, Dr. Reyna Attending Provider Friend DO, Dr. Reyna Referring Provider Labor, Trent Primary Care Unavailable Rojelio Chase Attending Unavailable Labor, Trent Referring Unavailable Labor, Trent Primary Care Unavailable Labor, Trent Attending Unavailable Labor, Trent Referring Unavailable Friend, Axel Attending Unavailable Friend, Axel Referring Unavailable Labor, Trent Primary Care Unavailable Friend, Axel Attending Unavailable Labor, Trent Primary Care Unavailable Labor, Trent Primary Care Unavailable Assessment, Health Risk Attending Unavaila ble Assessment, Health Risk Referring Unavaila ble Labor, Trent Primary Care Unavailable Labor, Trent Attending Unavailable Labor, Trent Referring Unavailable Friend, Axel Attending Unavailable Labor, Trent Referring Unavailable Labor, Trent Primary Care Unavailable Allergies Allergy Classification Reported Allergen(s) Allergy Type Date of Onset Reaction(s) Facility Pollen (2 sources) Tree and shrub pollen Substance Allergy 0 Other: See Comments [facility] Work Phone: (20 sources) Tree and shrub pollen; Translations: [TREE AND SHRUB POLLEN] Drug Allergy 0 Other: See Comments [facility] Work Phone: Medications Current Medications Medication [...] above: Take 1 tablet by arnaldo th twice daily for 7 days. escitalopram 10 [...] Comment on above: Take 1 tablet by [facility] three times daily for 7 days. Completed/Discontinued [...] / HYDROcodone bitartrate 5 mg oral tablet (3 sources) Opioid Agonist Start: 08-24-2023 End: 01-07-2025 [...] Discontinued dicyclomine hydrochloride 10 mg oral capsule (3 sources) Anticholinergic Start: 08-24-2023 End: 01-07-2025 take 2 capsules by mouth three times daily before mealtime Dicyclomine 10 mg capsule Discontinued 20 mg PO THREE TIMES DAILY BEFORE MEALS August 24, 2023 1:00am January 07, 2025 6:54am Start: 08-24-2023 [...] 03-09-2024 keTORolac 60 mg injection (Toradol) levonorgestrel 0.440895 mg/hr intrauterine system (20 sources) Progestin, Progestin-containin [...] Comment on above: Take 1 tablet by [facility] twice daily as needed for Pain. Take with food. ondansetron 4 mg disintegrating oral tablet (3 sources) Serotonin-3 Receptor Antagonist Start: 08-24-2023 End: 01-07-2025 take 1 tablet by mouth every eight hours as needed for nausea Ondansetron 4 mg tablet,disintegrat ing Discontinued 4 mg PO EVERY 8 HOURS NEEDED as needed for Nausea 10 0 August 24, 2023 1:00am January 07, 2025 6:54am predniSONE 10 mg oral tablet (2 sources) Start: 01-07-2025 End: 04-15-2025 take 4 tablets [...] Date Documented Da te Episodic/Chronic Abdominal pain (3 sources) Abdominal pain; Translations: [Unspecified abdominal pain] 08-24-2023 Episodic Allergic reactions (4 sources) Allergic disorder of skin; Translations: [Allergic contact dermatitis, unspecified cause] 01-07-2025 Episodic Cardiac dysrhythmias (4 sources) Ventricular premature complex; Translations: [Ventricular premature [...] Essential hypertension; Translations: [Essential (primary) hypertension] Onset: Chronic Menopausal disorders (2 sources) Menorrhagia; Translations: [...] Onset: 4 02-22-2024 Episodic Other gastrointestinal disorders (4 sources) Diarrhea; Translations: [Diarrhea, unspecified] 04-15-2025 Episodic Other gastrointestinal disorders (4 sources) Abdominal bloating; Translations: [Abdominal distension (gaseous)] 04-15-2025 Episodic Other gastrointestinal disorders (1 source) Diarrhea, unspecified; Translations: [Diarrhea, unspecified] Onset: Episodic Other lower respiratory disease (1 source) [...] [Pain, unspecified] 02-06-2024 Episodic Residual codes; unclassified (4 sources) History of palpitations; Translations: [Personal history [...] Test Name Value Interpretation Reference Range Facility [facility] ANTI-DNA (DS)AB <1 Normal 0-9 [facility] Comment on above: Result Comment: Nega tive <5 Equivocal 5 - 9 Positive >9 Performed By: #### L 501.6710, L501.76357, L501.9520, L503.0106, L503.6550, L504.2610, L5500.0550, L3100.5440, L101.9900, L100.0100, L500.4050, L506.0400, L501.2300, L501.5200 #### [facility] [address] [place], [place], [id number] ANTI-SS-A < 0.2 Normal 0.0-0.9 [facility] Comment on above: Performed By: #### L 501.6710, L501.52090, L501.9520, L503.0106, L503.6550, L504.2610, L5500.0550, L3100.5440, L101.9900, L100.0100, L500.4050, L506.0400, L501.2300, L501.5200 #### [facility] [address] [place], [place], [id number] (686) ANTI-SS-B < 0.2 Normal 0.0-0.9 [facility] Comment on above: Performed By: #### L 501.6710, L501.94593, L501.9520, L503.0106, L503.6550, L504.2610, L5500.0550, L3100.5440, L101.9900, L100.0100, L500.4050, L506.0400, L501.2300, L501.5200 #### [facility] [address] [place], [place], [id number] Allergen, Food Profile 14on 05-07-2025 BEEF <0.10 Normal Class 0 [facility] Comment on above: Performed By: #### L 501.6710, L501.44997, L501.9520, L503.0106, L503.6550, L504.2610, L5500.0550, L3100.5440, L101.9900, L100.0100, L500.4050, L506.0400, L501.2300, L501.5200 #### [facility] [address] [place], [place], [id number] (931) CHOCOLATE <0.10 Normal Class 0 [facility] Comment on above: Performed By: #### L 501.6710, L501.45097, L501.9520, L503.0106, L503.6550, L504.2610, L5500.0550, L3100.5440, L101.9900, L100.0100, L500.4050, L506.0400, L501.2300, L501.5200 #### [facility] [address] [place], [address] CODFISH <0.10 Normal Class 0 [facility] Comment on above: Performed By: #### L 501.6710, L501.12388, L501.9520, L503.0106, L503.6550, L504.2610, L5500.0550, L3100.5440, L101.9900, L100.0100, L500.4050, L506.0400, L501.2300, L501.5200 #### [facility] [address] [place], [address] COMMENT Comment Normal . [facility] Comment on above: Result Comment: Kate bowen of Specific IgE Class Description of Class ----- < 0.10 0 Negative 0.10 - 0.31 0/I Equivocal/Low 0.32 - 0.55 I Low 0.56 - 1.40 II Moderate 1.41 - 3.90 III High 3.91 - 19.00 IV Very High 19.01 - 100.00 V Very High >100.00 Very High Performed By: #### L 501.6710, L501.46275, L501.9520, L503.0106, L503.6550, L504.2610, L5500.0550, L3100.5440, L101.9900, L100.0100, L500.4050, L506.0400, L501.2300, L501.5200 #### [facility] [address] [place], [address] CORN <0.10 Normal Class 0 [facility] Comment on above: Performed By: #### L 501.6710, L501.98263, L501.9520, L503.0106, L503.6550, L504.2610, L5500.0550, L3100.5440, L101.9900, L100.0100, L500.4050, L506.0400, L501.2300, L501.5200 #### [facility] [address] [place], [address] EGG, WHOLE <0.10 Normal Class 0 [facility] Comment on above: Result Comment: Perf ormed at: [facility] [address] [id number] Landscape Crew Leader: Angel Campos PhD, Phone: [phone] Performed at: [facility] [address] [id number] Landscape Crew Leader: Davian Gudino MD, Phone: [phone] Performed By: #### L 501.6710, L501.13677, L501.9520, L503.0106, L503.6550, L504.2610, L5500.0550, L3100.5440, L101.9900, L100.0100, L500.4050, L506.0400, L501.2300, L501.5200 #### [facility] [address] [place], [place], [id number] MILK (COW) 0.12 kU/L Abnormal Class 0/I [facility] Comment on above: Performed By: #### L 501.6710, L501.82805, L501.9520, L503.0106, L503.6550, L504.2610, L5500.0550, L3100.5440, L101.9900, L100.0100, L500.4050, L506.0400, L501.2300, L501.5200 #### [facility] [address] [place], [place], [id number] MUSSELS <0.10 Normal Class 0 [facility] Comment on above: Performed By: #### L 501.6710, L501.57740, L501.9520, L503.0106, L503.6550, L504.2610, L5500.0550, L3100.5440, L101.9900, L100.0100, L500.4050, L506.0400, L501.2300, L501.5200 #### [facility] [address] [place], [id number] PEANUT <0.10 Normal Class 0 [facility] Comment on above: Performed By: #### L 501.6710, L501.38168, L501.9520, L503.0106, L503.6550, L504.2610, L5500.0550, L3100.5440, L101.9900, L100.0100, L500.4050, L506.0400, L501.2300, L501.5200 #### [facility] [place], [place], [id number] PORK <0.10 Normal Class 0 [facility] Comment on above: Performed By: #### L 501.6710, L501.58942, L501.9520, L503.0106, L503.6550, L504.2610, L5500.0550, L3100.5440, L101.9900, L100.0100, L500.4050, L506.0400, L501.2300, L501.5200 #### [facility] [address] [facility] [place], [place], [id number] SALMON <0.10 Normal Class 0 [facility] Comment on above: Performed By: #### L 501.6710, L501.24415, L501.9520, L503.0106, L503.6550, L504.2610, L5500.0550, L3100.5440, L101.9900, L100.0100, L500.4050, L506.0400, L501.2300, L501.5200 #### [facility] [address] [place], [place], [id number] SHRIMP 0.16 kU/L Abnormal Class 0/I [facility] Comment on above: Performed By: #### L 501.6710, L501.46940, L501.9520, L503.0106, L503.6550, L504.2610, L5500.0550, L3100.5440, L101.9900, L100.0100, L500.4050, L506.0400, L501.2300, L501.5200 #### [facility] [address] [place], [address] SOYBEAN <0.10 Normal Class 0 [facility] Comment on above: Performed By: #### L 501.6710, L501.23361, L501.9520, L503.0106, L503.6550, L504.2610, L5500.0550, L3100.5440, L101.9900, L100.0100, L500.4050, L506.0400, L501.2300, L501.5200 #### [facility] [address] [place], [place], [id number] TUNA <0.10 Normal Class 0 [facility] Comment on above: Performed By: #### L 501.6710, L501.93644, L501.9520, L503.0106, L503.6550, L504.2610, L5500.0550, L3100.5440, L101.9900, L100.0100, L500.4050, L506.0400, L501.2300, L501.5200 #### [facility] [address] [place], [address] WHEAT <0.10 Normal Class 0 [facility] Comment on above: Performed By: #### L 501.6710, L501.11372, L501.9520, L503.0106, L503.6550, L504.2610, L5500.0550, L3100.5440, L101.9900, L100.0100, L500.4050, L506.0400, L501.2300, L501.5200 #### [facility] [place], [address] Absolute lymphocyte countOrd ered By: Axel Castaneda on 05-02-2025 Lymphocytes Auto (Unsp spec) [#/Vol] 1.78 10*3/uL 0.83-4.51 [facility] Absolute neutrophil countOrd ered By: Axelsancho Castaneda on 05-02-2025 Neutrophils (Bld) [#/Vol] 5.5 10*3/uL 2.0-7.7 [facility] Anion gap in Serum or Plasma Ordered By: Axel Castaneda on 05-02-2025 Anion gap [Moles/Vol] 14 mmol/L 5-[address] [facility] Automated lymphocyte count a s percentage of total leukocytesOrdered By: Axel Castaneda on 05-02-2025 Lymphocytes/100 WBC Auto (Unsp spec) 21.5 % 19-41 [facility] BUN/creatinine ratioOrdered By: Axelelina Castaneda on 05-02-2025 Urea nitrogen/Creatinine [Mass ratio] 19.7 mg/mg 10-20 [facility] Basophil percentageOrdered B y: Axel Castaneda on 05-02-2025 Basophils/100 WBC (Bld) 0.6 % 0-1 [facility] Bilirubin, totalOrdered By: Axel Castaneda on 05-02-2025 Bilirubin [Mass/Vol] 0.63 mg/dL 0.00-1.30 [facility] CBC W/Diff, Automatedon Absolute Lymph 1.78 X10 3/uL Normal 0.83-4.51 [facility] Comment on above: Performed By: #### L 501.6710, L501.96711, L501.9520, L503.0106, L503.6550, L504.2610, L5500.0550, L3100.5440, L101.9900, L100.0100, L500.4050, L506.0400, L501.2300, L501.5200 #### [facility] [address] [place], [address] Absolute Neut 5.5 X10 3/uL Normal 2.0-7.7 [facility] Comment on above: Performed By: #### L 501.6710, L501.86120, L501.9520, L503.0106, L503.6550, L504.2610, L5500.0550, L3100.5440, L101.9900, L100.0100, L500.4050, L506.0400, L501.2300, L501.5200 #### [facility] [address] [place], [address] Basophils/100 WBC (Bld) 0.6 % Normal 0-1 [facility] Comment on above: Performed By: #### L 501.6710, L501.93550, L501.9520, L503.0106, L503.6550, L504.2610, L5500.0550, L3100.5440, L101.9900, L100.0100, L500.4050, L506.0400, L501.2300, L501.5200 #### [facility] [address] [place], [address] Eosinophils/100 WBC (Bld) 3.7 % Normal 0-5 [facility] Comment on above: Performed By: #### L 501.6710, L501.22279, L501.9520, L503.0106, L503.6550, L504.2610, L5500.0550, L3100.5440, L101.9900, L100.0100, L500.4050, L506.0400, L501.2300, L501.5200 #### [facility] [address] [place], [address] Erythrocyte distribution width (RBC) [Ratio] 12.4 % Normal 11.6-14.6 [facility] Comment on above: Performed By: #### L 501.6710, L501.82156, L501.9520, L503.0106, L503.6550, L504.2610, L5500.0550, L3100.5440, L101.9900, L100.0100, L500.4050, L506.0400, L501.2300, L501.5200 #### [facility] [address] [place], [address] (541) Hematocrit (Bld) [Volume fraction] 39.4 % Normal 37-47 [facility] Comment on above: Performed By: #### L 501.6710, L501.72393, L501.9520, L503.0106, L503.6550, L504.2610, L5500.0550, L3100.5440, L101.9900, L100.0100, L500.4050, L506.0400, L501.2300, L501.5200 #### [facility] [address] [facility] [place], [address] Hemoglobin (Bld) [Mass/Vol] 13.0 g/dL Normal 12.0-15.0 [facility] Comment on above: Performed By: #### L 501.6710, L501.20298, L501.9520, L503.0106, L503.6550, L504.2610, L5500.0550, L3100.5440, L101.9900, L100.0100, L500.4050, L506.0400, L501.2300, L501.5200 #### [facility] [address] [facility] [place], [address] IG% 0.500 Normal 0.0-0.9 [facility] Comment on above: Result Comment: IG% - Immature Granulocytes (promyelocytes, myelocytes and metamyelocytes) > 1% indicates that a LEFT SHIFT is Present. Performed By: #### L 501.6710, L501.77317, L501.9520, L503.0106, L503.6550, L504.2610, L5500.0550, L3100.5440, L101.9900, L100.0100, L500.4050, L506.0400, L501.2300, L501.5200 #### [facility] [address] [place], [address] Lymphocytes/100 WBC (Bld) 21.5 % Normal 19-41 [facility] Comment on above: Performed By: #### L 501.6710, L501.83981, L501.9520, L503.0106, L503.6550, L504.2610, L5500.0550, L3100.5440, L101.9900, L100.0100, L500.4050, L506.0400, L501.2300, L501.5200 #### [facility] [address] [place], [address] MCH (RBC) [Entitic mass] 29.0 pg Normal 27.0-32.0 [facility] Comment on above: Performed By: #### L 501.6710, L501.58660, L501.9520, L503.0106, L503.6550, L504.2610, L5500.0550, L3100.5440, L101.9900, L100.0100, L500.4050, L506.0400, L501.2300, L501.5200 #### [facility] [address] [place], [address] MCHC (RBC) [Mass/Vol] 33.0 g/dL Normal 32-[address] [facility] Comment on above: Performed By: #### L 501.6710, L501.74251, L501.9520, L503.0106, L503.6550, L504.2610, L5500.0550, L3100.5440, L101.9900, L100.0100, L500.4050, L506.0400, L501.2300, L501.5200 #### [facility] [address] [place], [address] MCV (RBC) [Entitic vol] 87.8 fL Normal 81-99 [facility] Comment on above: Performed By: #### L 501.6710, L501.34356, L501.9520, L503.0106, L503.6550, L504.2610, L5500.0550, L3100.5440, L101.9900, L100.0100, L500.4050, L506.0400, L501.2300, L501.5200 #### [facility] [address] [facility] [place], [address] Monocytes/100 WBC (Bld) 7.2 % Normal 0-10 [facility] Comment on above: Performed By: #### L 501.6710, L501.78366, L501.9520, L503.0106, L503.6550, L504.2610, L5500.0550, L3100.5440, L101.9900, L100.0100, L500.4050, L506.0400, L501.2300, L501.5200 #### [facility] [address] [place], [address] Neutrophils/100 WBC (Bld) 66.5 % Normal 47-70 [facility] Comment on above: Performed By: #### L 501.6710, L501.37026, L501.9520, L503.0106, L503.6550, L504.2610, L5500.0550, L3100.5440, L101.9900, L100.0100, L500.4050, L506.0400, L501.2300, L501.5200 #### [facility] [address] [facility] [place], [address] Nucleated RBC (Bld) [#/Vol] 0 10*3/uL Normal 0-5 [facility] Comment on above: Performed By: #### L 501.6710, L501.29844, L501.9520, L503.0106, L503.6550, L504.2610, L5500.0550, L3100.5440, L101.9900, L100.0100, L500.4050, L506.0400, L501.2300, L501.5200 #### [facility] [address] [place], [address] Platelet mean volume (Bld) [Entitic vol] 11.7 fL Normal 6.2-12.0 [facility] Comment on above: Performed By: #### L 501.6710, L501.43526, L501.9520, L503.0106, L503.6550, L504.2610, L5500.0550, L3100.5440, L101.9900, L100.0100, L500.4050, L506.0400, L501.2300, L501.5200 #### [facility] [address] [place], [address] Platelets (Bld) [#/Vol] 277 10*3/uL Normal 150-450 [facility] Comment on above: Performed By: #### L 501.6710, L501.94789, L501.9520, L503.0106, L503.6550, L504.2610, L5500.0550, L3100.5440, L101.9900, L100.0100, L500.4050, L506.0400, L501.2300, L501.5200 #### [facility] [address] [place], [address] RBC (Bld) [#/Vol] 4.49 10*6/uL Normal 4.2-5.4 [facility] Comment on above: Performed By: #### L 501.6710, L501.18501, L501.9520, L503.0106, L503.6550, L504.2610, L5500.0550, L3100.5440, L101.9900, L100.0100, L500.4050, L506.0400, L501.2300, L501.5200 #### [facility] [address] [place], [place], [id number] (040) RDW SD 39.7 fl Normal 35.1-43.9 [facility] Comment on above: Performed By: #### L 501.6710, L501.80864, L501.9520, L503.0106, L503.6550, L504.2610, L5500.0550, L3100.5440, L101.9900, L100.0100, L500.4050, L506.0400, L501.2300, L501.5200 #### [facility] [address] [place], [place], [id number] WBC (Bld) [#/Vol] 8.3 10*3/uL Normal 4.4-11.0 [facility] Comment on above: Performed By: #### L 501.6710, L501.94842, L501.9520, L503.0106, L503.6550, L504.2610, L5500.0550, L3100.5440, L101.9900, L100.0100, L500.4050, L506.0400, L501.2300, L501.5200 #### [facility] [address] [place], [place], [id number] CRPon 05-02-2025 C-REACTIVE PROT 14.70 mg/L High 0.0-3.0 [facility] Comment on above: Performed By: #### L 501.6710, L501.57078, L501.9520, L503.0106, L503.6550, L504.2610, L5500.0550, L3100.5440, L101.9900, L100.0100, L500.4050, L506.0400, L501.2300, L501.5200 #### [facility] [address] [place], [place], [id number] Carbon dioxide, total [Moles /volume] in Central venous bloodOrdered By: Axel Castaneda on 05-02-2025 CO2 [Moles/Vol] 21.1 mmol/L 21.0-32.0 [facility] Chloride assayOrdered By: Ra johnathan Castaneda on 05-02-2025 Chloride [Moles/Vol] 104 mmol/L 98-108 [facility] Comprehensive Metabolic Prof ilon 05-02-2025 Albumin [Mass/Vol] 4.1 g/dL Normal 3.5-5.0 [facility] Comment on above: Performed By: #### L 501.6710, L501.20182, L501.9520, L503.0106, L503.6550, L504.2610, L5500.0550, L3100.5440, L101.9900, L100.0100, L500.4050, L506.0400, L501.2300, L501.5200 #### [facility] [address] [place], [place], [id number] (458) Albumin/Globulin [Mass ratio] 1.2 {ratio} Normal 0.9-2.4 [facility] Comment on above: Performed By: #### L 501.6710, L501.39834, L501.9520, L503.0106, L503.6550, L504.2610, L5500.0550, L3100.5440, L101.9900, L100.0100, L500.4050, L506.0400, L501.2300, L501.5200 #### [facility] [address] [place], [place], [id number] ALK PHOS 114 U/L High 35-104 [facility] Comment on above: Performed By: #### L 501.6710, L501.94956, L501.9520, L503.0106, L503.6550, L504.2610, L5500.0550, L3100.5440, L101.9900, L100.0100, L500.4050, L506.0400, L501.2300, L501.5200 #### [facility] [address] [place], [place], [id number] ALT [Catalytic activity/Vol] 27 U/L Normal <=34 [facility] Comment on above: Performed By: #### L 501.6710, L501.40463, L501.9520, L503.0106, L503.6550, L504.2610, L5500.0550, L3100.5440, L101.9900, L100.0100, L500.4050, L506.0400, L501.2300, L501.5200 #### [facility] [address] [place], [address] AST [Catalytic activity/Vol] 26 U/L Normal <=31 [facility] Comment on above: Performed By: #### L 501.6710, L501.90935, L501.9520, L503.0106, L503.6550, L504.2610, L5500.0550, L3100.5440, L101.9900, L100.0100, L500.4050, L506.0400, L501.2300, L501.5200 #### [facility] [address] [place], [place], [id number] Bilirubin [Mass/Vol] 0.63 mg/dL Normal 0.00-1.30 [facility] Comment on above: Performed By: #### L 501.6710, L501.36905, L501.9520, L503.0106, L503.6550, L504.2610, L5500.0550, L3100.5440, L101.9900, L100.0100, L500.4050, L506.0400, L501.2300, L501.5200 #### [facility] [address] [place], [place], [id number] (978) BUN/CRE 19.7 RATIO Normal 10-20 [facility] Comment on above: Performed By: #### L 501.6710, L501.29374, L501.9520, L503.0106, L503.6550, L504.2610, L5500.0550, L3100.5440, L101.9900, L100.0100, L500.4050, L506.0400, L501.2300, L501.5200 #### [facility] [address] [place], [place], [id number] (632) Calcium [Mass/Vol] 9.0 mg/dL Normal 7.6-11.0 [facility] Comment on above: Performed By: #### L 501.6710, L501.05568, L501.9520, L503.0106, L503.6550, L504.2610, L5500.0550, L3100.5440, L101.9900, L100.0100, L500.4050, L506.0400, L501.2300, L501.5200 #### [facility] [address] [place], [address] Chloride [Moles/Vol] 104 mmol/L Normal 98-108 [facility] Comment on above: Performed By: #### L 501.6710, L501.77210, L501.9520, L503.0106, L503.6550, L504.2610, L5500.0550, L3100.5440, L101.9900, L100.0100, L500.4050, L506.0400, L501.2300, L501.5200 #### [facility] [address] [place], [address] CO2 [Moles/Vol] 21.1 mmol/L Normal 21.0-32.0 [facility] [facility] Comment on above: Performed By: #### L 501.6710, L501.51033, L501.9520, L503.0106, L503.6550, L504.2610, L5500.0550, L3100.5440, L101.9900, L100.0100, L500.4050, L506.0400, L501.2300, L501.5200 #### [facility] [address] [place], [address] Creatinine [Mass/Vol] 0.76 mg/dL Normal 0.70-1.[address] [facility] Comment on above: Performed By: #### L 501.6710, L501.02563, L501.9520, L503.0106, L503.6550, L504.2610, L5500.0550, L3100.5440, L101.9900, L100.0100, L500.4050, L506.0400, L501.2300, L501.5200 #### [facility] [address] [facility] [place], [address] GAP 14 Normal 5-15 [facility] Comment on above: Performed By: #### L 501.6710, L501.86898, L501.9520, L503.0106, L503.6550, L504.2610, L5500.0550, L3100.5440, L101.9900, L100.0100, L500.4050, L506.0400, L501.2300, L501.5200 #### [facility] [address] [facility] [place], [address] GFR/1.73 sq M.predicted among non-blacks MDRD (S/P/Bld) [Vol rate/Area] 96 mL/min/{1.73_m2} Normal >60 [facility] Comment on above: Result Comment: mL/m in/1.73m2 CKD-EPI Creatinine Equation (2020) Performed By: #### L 501.6710, L501.27039, L501.9520, L503.0106, L503.6550, L504.2610, L5500.0550, L3100.5440, L101.9900, L100.0100, L500.4050, L506.0400, L501.2300, L501.5200 #### [facility] [address] [place], [address] Globulin (S) [Mass/Vol] 3.3 g/dL Normal 2.2-4.2 [facility] Comment on above: Performed By: #### L 501.6710, L501.00880, L501.9520, L503.0106, L503.6550, L504.2610, L5500.0550, L3100.5440, L101.9900, L100.0100, L500.4050, L506.0400, L501.2300, L501.5200 #### [facility] [address] [place], [address] Glucose [Mass/Vol] 98 mg/dL Normal 70-99 [facility] Comment on above: Performed By: #### L 501.6710, L501.05669, L501.9520, L503.0106, L503.6550, L504.2610, L5500.0550, L3100.5440, L101.9900, L100.0100, L500.4050, L506.0400, L501.2300, L501.5200 #### [facility] [address] [place], [address] Potassium [Moles/Vol] 4.0 mmol/L Normal 3.3-5.[address] [facility] Comment on above: Performed By: #### L 501.6710, L501.26878, L501.9520, L503.0106, L503.6550, L504.2610, L5500.0550, L3100.5440, L101.9900, L100.0100, L500.4050, L506.0400, L501.2300, L501.5200 #### [facility] [address] [place], [place], [id number] Sodium [Moles/Vol] 139 mmol/L Normal 133-145 [facility] Comment on above: Performed By: #### L 501.6710, L501.29825, L501.9520, L503.0106, L503.6550, L504.2610, L5500.0550, L3100.5440, L101.9900, L100.0100, L500.4050, L506.0400, L501.2300, L501.5200 #### [facility] [address] [place], [address] T PROT 7.4 g/dL Normal 5.9-8.4 [facility] Comment on above: Performed By: #### L 501.6710, L501.13707, L501.9520, L503.0106, L503.6550, L504.2610, L5500.0550, L3100.5440, L101.9900, L100.0100, L500.4050, L506.0400, L501.2300, L501.5200 #### [facility] [address] [place], [place], [id number] Urea nitrogen [Mass/Vol] 15 mg/dL Normal 4-19 [facility] Comment on above: Performed By: #### L 501.6710, L501.35162, L501.9520, L503.0106, L503.6550, L504.2610, L5500.0550, L3100.5440, L101.9900, L100.0100, L500.4050, L506.0400, L501.2300, L501.5200 #### [facility] [address] [place], [place], [address] Eosinophil percentageOrdered By: Axelsancho Castaneda on 05-02-2025 Eosinophils/100 WBC (Bld) 3.7 % 0-5 [facility] Erythrocyte Sed Rateon 05-02 SED RATE 28 mm/hr Normal 0-30 [facility] Comment on above: Performed By: #### L 501.6710, L501.10910, L501.9520, L503.0106, L503.6550, L504.2610, L5500.0550, L3100.5440, L101.9900, L100.0100, L500.4050, L506.0400, L501.2300, L501.5200 #### [facility] [address] [place], [address] Erythrocyte distribution wid th ratioOrdered By: Axel Leonel on 05-02-2025 Erythrocyte distribution width (RBC) [Ratio] 12.4 % 11.6-14.6 [facility] Erythrocyte distribution wid th standard deviationOrdered By: Axel Leonel on 05-02-2025 Erythrocyte distribution width (RBC) [Ratio] 39.7 fl 35.1-43.9 [facility] Erythrocyte sedimentation ra teOrdered By: Axel Castaneda on 05-02-2025 ESR (Bld) [Velocity] 28 mm/h 0-30 [facility] Ferritinon 05-02-2025 Ferritin [Mass/Vol] 103 ng/mL Normal 22-378 [facility] Comment on above: Performed By: #### L 501.6710, L501.62424, L501.9520, L503.0106, L503.6550, L504.2610, L5500.0550, L3100.5440, L101.9900, L100.0100, L500.4050, L506.0400, L501.2300, L501.5200 #### [facility] [address] [place], [place], [id number] Free T3on 05-02-2025 Free T3 [Mass/Vol] 3.0 pg/mL Normal 2.18-3.98 [facility] Comment on above: Performed By: #### L 501.6710, L501.51607, L501.9520, L503.0106, L503.6550, L504.2610, L5500.0550, L3100.5440, L101.9900, L100.0100, L500.4050, L506.0400, L501.2300, L501.5200 #### [facility] [address] [place], [place], [address] Free [id number] By: Axel whitfield on 05-02-2025 Free T3 [Mass/Vol] 3.0 pg/mL 2.18-3.98 [facility] Glomerular filtration rate ( GFR) estimation/1.73 sq m using serum, plasma, or whole bOrdered By: Axel Castaneda on 05-02-2025 GFR/1.73 sq M.predicted among non-blacks MDRD (S/P/Bld) [Vol rate/Area] 96 mL/min/{1.73_m2} >60 [facility] Comment on above: mL/min/1.73m2 CKD-EP I Creatinine Equation (2020) Hematocrit Auto (Bld) [Volum e fraction]Ordered By: Axel Castaneda on 05-02-2025 Hematocrit (Bld) [Volume fraction] 39.4 % 37-47 [facility] Hemoglobin measurementOrdere d By: Axel Castaneda on 05-02-2025 Hemoglobin (Bld) [Mass/Vol] 13.0 g/dL 12.0-15.0 [facility] Immature granulocytes/100 WB C Auto (Bld)Ordered By: Axel Castaneda on 05-02-2025 Immature granulocytes/100 WBC (Bld) 0.500 % 0.0-0.9 [facility] Comment on above: IG% - Immature Granu locytes (promyelocytes, myelocytes and metamyelocytes) > 1% indicates that a LEFT SHIFT is Present. LDHon 05-02-2025 LDH 166 U/L Normal 84-246 [facility] Comment on above: Order Comment: 1 Performed By: #### L 501.6710, L501.69757, L501.9520, L503.0106, L503.6550, L504.2610, L5500.0550, L3100.5440, L101.9900, L100.0100, L500.4050, L506.0400, L501.2300, L501.5200 #### [facility] [place], [address] Laboratory - Chemistry and C hemistry - challengeOrdered By: Axel Castaneda on 05-02-2025 AST [Catalytic activity/Vol] 26 U/L <32 [facility] - Miscellaneous t estsOrdered By: Axel Castaneda on 05-02-2025 Service comment (Unsp spec) [Interp] Comment . [facility] Comment on above: Levels of Specific I gE Class Description of Class ----- < 0.10 0 Negative 0.10 - 0.31 0/I Equivocal/Low 0.32 - 0.55 I Low 0.56 - 1.40 II Moderate 1.41 - 3.90 III High 3.91 - 19.00 IV Very High 19.01 - 100.00 V Very High >100.00 Very High Lactate dehydrogenase (LDH) measurementOrdered By: Axel Castaneda on 05-02-2025 LDH [Catalytic activity/Vol] 166 U/L 84-246 [facility] MCV (mean corpuscular volume ) determinationOrdered By: Axel Castaneda on 05-02-2025 MCV (RBC) [Entitic vol] 87.8 fL 81-99 [facility] Magnesiumon 05-02-2025 Magnesium [Mass/Vol] 2.0 mg/dL Normal 1.5-2.2 [facility] Comment on above: Performed By: #### L 501.6710, L501.72885, L501.9520, L503.0106, L503.6550, L504.2610, L5500.0550, L3100.5440, L101.9900, L100.0100, L500.4050, L506.0400, L501.2300, L501.5200 #### [facility] [place], [address] Magnesium measurement (mass/ volume)Ordered By: Axel Castaneda on 05-02-2025 Magnesium (Unsp spec) [Mass/Vol] 2.0 mg/dL 1.5-2.2 [facility] Mean corpuscular hemoglobin (MCH) determinationOrdered By: Axel Castaneda on 05-02-2025 MCH (RBC) [Entitic mass] 29.0 pg 27.0-32.0 [facility] Mean corpuscular hemoglobin concentration (MCHC) determinationOrdered By: Axel Castaneda on 05-02-2025 MCHC (RBC) [Mass/Vol] 33.0 g/dL 32-[address] [facility] Mean platelet volume determi nationOrdered By: Axelsancho Castaneda on 05-02-2025 Platelet mean volume (Bld) [Entitic vol] 11.7 fL 6.2-12.0 [facility] Monocyte percentageOrdered B y: Axel Castaneda on 05-02-2025 Monocytes/100 WBC (Bld) 7.2 % 0-10 [facility] Neutrophil percentageOrdered By: Axelelina Castaneda on 05-02-2025 Neutrophils/100 WBC (Bld) 66.5 % 47-70 [facility] Nucleated red blood cell per centageOrdered By: Axelsancho Castaneda on 05-02-2025 Nucleated RBC/100 WBC (Bld) [Ratio] 0 % 0-5 [facility] Phosphoruson 05-02-2025 Phosphate [Mass/Vol] 3.2 mg/dL Normal 2.7-4.5 [facility] Comment on above: Performed By: #### L 501.6710, L501.24495, L501.9520, L503.0106, L503.6550, L504.2610, L5500.0550, L3100.5440, L101.9900, L100.0100, L500.4050, L506.0400, L501.2300, L501.5200 #### [facility] [address] [place], [address] Platelet countOrdered By: Ra johnathan Castaneda on 05-02-2025 Platelets (Bld) [#/Vol] 277 10*3/uL 150-450 [facility] Potassium measurement (mass/ volume)Ordered By: Axel Castaneda on 05-02-2025 Potassium (Unsp spec) [Mass/Vol] 4.0 mmol/L 3.3-5.1 [facility] RBC Auto (Bld) [#/Vol]Ordere d By: Axel Castaneda on 05-02-2025 RBC (Bld) [#/Vol] 4.49 10*6/uL 4.2-5.4 [facility] Serum DNA double strand anti body assay (units/volume)Ordered By: Axel Castaneda on 05-02-2025 DNA double strand Ab Qn (S) [IU]/mL 0-9 [facility] Comment on above: Negative <5 Equivoca l 5 - 9 Positive >9 Serum Scl-70 antibody assay (units/volume)Ordered By: Axel Castaneda on 05-02-2025 SCL-70 extractable nuclear Ab Qn (S) <0.2 AI 0.0-0.9 [facility] Comment on above: Previous reported re sult: TNP AIEdited by: JANICE on 05/07/25:0007 AMENDED REPORT 05/07/256 ANTISCLER previously reported as: Test not performed Serum beef IgE antibody assa y (units/volume)Ordered By: Axel Castaneda on 05-02-2025 Beef IgE Qn (S) <0.10 kU/L Class 0 [facility] Serum codfish IgE antibody a ssay (units/volume)Ordered By: Axel Castaneda on 05-02-2025 Codfish IgE Qn (S) <0.10 kU/L Class 0 [facility] Serum corn IgE antibody assa y (units/volume)Ordered By: Axel Castaneda on 05-02-2025 [place] IgE Qn (S) <0.10 kU/L Class 0 [facility] Serum cow milk IgE antibody assay (units/volume)Ordered By: Axel Castaneda on 05-02-2025 Cow milk IgE Qn (S) 0.12 kU/L High Class 0/I [facility] Serum creatinine measurement (mass/volume)Ordered By: Axel Castaneda on 05-02-2025 Creatinine [Mass/Vol] 0.76 mg/dL 0.70-1.[address] [facility] Serum globulin measurementOr dered By: Axel Castaneda on 05-02-2025 Globulin (S) [Mass/Vol] 3.3 g/dL 2.2-4.2 [facility] Serum glucose measurement (m ass/volume)Ordered By: Axel Castaneda on 05-02-2025 Glucose [Mass/Vol] 98 mg/dL 70-99 [facility] Serum or plasma C reactive p rotein measurement (mass/volume)Ordered By: Axel Castaneda on 05-02-2025 CRP [Mass/Vol] 14.70 mg/L High 0.0-3.0 [facility] Serum or plasma alanine hannah otransferase (ALT) measurementOrdered By: Axel Castaneda on 05-02-2025 ALT [Catalytic activity/Vol] 27 U/L <35 [facility] Serum or plasma albumin jamil urement (mass/volume)Ordered By: Axel Castaneda on 05-02-2025 Albumin [Mass/Vol] 4.1 g/dL 3.5-5.0 [facility] Serum or plasma albumin/glob ulin mass ratioOrdered By: Axel Castaneda on 05-02-2025 Albumin/Globulin [Mass ratio] 1.2 {ratio} 0.9-2.4 [facility] Serum or plasma alkaline shoaib sphatase measurementOrdered By: Axel Castaneda on 05-02-2025 ALP [Catalytic activity/Vol] 114 U/L High 35-104 [facility] Serum or plasma calcium jamil urement (mass/volume)Ordered By: Axel Castaneda on 05-02-2025 Calcium [Mass/Vol] 9.0 mg/dL 7.6-11.0 [facility] Serum or plasma ferritin satnam surement (mass/volume)Ordered By: Axel Castaneda on 05-02-2025 Ferritin [Mass/Vol] 103 ng/mL 22-378 [facility] Serum or plasma urea nitroge n measurement (mass/volume)Ordered By: Axel Castaneda on 05-02-2025 Urea nitrogen [Mass/Vol] 15 mg/dL 4-19 [facility] Serum peanut IgE antibody as say (units/volume)Ordered By: Axel Castaneda on 05-02-2025 Peanut IgE Qn (S) <0.10 kU/L Class 0 [facility] Serum pork IgE antibody assa y (units/volume)Ordered By: Axel Castaneda on 05-02-2025 Pork IgE Qn (S) <0.10 kU/L Class 0 [facility] Serum salmon IgE antibody as say (units/volume)Ordered By: Axel Castaneda on 05-02-2025 [place] IgE Qn (S) <0.10 kU/L Class 0 [facility] Serum soybean IgE antibody a ssay (units/volume)Ordered By: Axel Castaneda on 05-02-2025 Soybean IgE Qn (S) <0.10 kU/L Class 0 [facility] Serum tuna IgE antibody assa y (units/volume)Ordered By: Axel Castaneda on 05-02-2025 Tuna IgE Qn (S) <0.10 kU/L Class 0 [facility] Serum wheat IgE antibody ass ay (units/volume)Ordered By: Axel Castaneda on 05-02-2025 Wheat IgE Qn (S) <0.10 kU/L Class 0 [facility] Serum whole egg IgE antibody assay (units/volume)Ordered By: Axel Castaneda on 05-02-2025 Whole Egg IgE Qn (S) <0.10 kU/L Class 0 [facility] Comment on above: Performed at: [address] [id number] Director: Angel Campos PhD, Phone: [phone] at: [facility] [place], [place] [id number] Director: Davian Gudino MD, Phone: [phone] Sodium levelOrdered By: Carrillo Burgess on 05-02-2025 Sodium [Moles/Vol] 139 mmol/L 133-145 [facility] T4 Free Directon 05-02-2025 T4 FREE DIRECT 0.80 ng/dL Normal 0.76-1.46 [facility] Comment on above: Performed By: #### L 501.6710, L501.58451, L501.9520, L503.0106, L503.6550, L504.2610, L5500.0550, L3100.5440, L101.9900, L100.0100, L500.4050, L506.0400, L501.2300, L501.5200 #### [facility] [address] [place], [address] T4 freeOrdered By: Axel whitfield on 05-02-2025 Free T4 [Mass/Vol] 0.80 ng/dL 0.76-1.46 [facility] TSH DL <= 0.005 mIU/L QnOrde red By: Axel Castaneda on 05-02-2025 TSH Qn 1.070 uIU/mL 0.300-4.200 [facility] Thyroid Stim Hormone (TSH)on 05-02-2025 TSH 1.070 uIU/mL Normal 0.300-4.200 [facility] Comment on above: Performed By: #### L 501.6710, L501.12159, L501.9520, L503.0106, L503.6550, L504.2610, L5500.0550, L3100.5440, L101.9900, L100.0100, L500.4050, L506.0400, L501.2300, L501.5200 #### [facility] [address] [place], [address] Total proteinOrdered By: Ashwin Castaenda on 05-02-2025 Protein [Mass/Vol] 7.4 g/dL 5.9-8.4 [facility] Vitamin B12on 05-02-2025 Cobalamin (Vitamin B12) [Mass/Vol] 790 pg/mL Normal 180-914 [facility] Comment on above: Performed By: #### L 501.6710, L501.92143, L501.9520, L503.0106, L503.6550, L504.2610, L5500.0550, L3100.5440, L101.9900, L100.0100, L500.4050, L506.0400, L501.2300, L501.5200 #### [facility] [address] [place], [place], [address] Vitamin B12 ser/plasOrdered By: Axel Castaneda on 05-02-2025 Cobalamin (Vitamin B12) [Mass/Vol] 790 pg/mL 180-914 [facility] White blood cell (WBC) count Ordered By: Axel Castaneda on 05-02-2025 WBC (Bld) [#/Vol] 8.3 10*3/uL 4.4-11.0 [facility] Gastroenterology Visit Repor ton 04-15-2025 Gastroenterology Visit Report [facility] Gastroenterology [address] [place] [address] OFFICE VISIT Date of Service: 04/15/25 MR#: [id number] Acct: [id number] Name: MENDOZA JOHNSON Rep #: [id number] : 1975 Provider: Axel Castaneda DO Age/Sex: 49/F Location: [facility] Status: Signed Intake Vital Signs 01/07/25 06:54 [...] any questions or concerns at this time. [facility] Medical History (Updated 04/15/25 @ 09:00 by [...] to the office today for follow up. *I established 04.15.25 pt reports with long history of what [...] the pa (more content not included)... Normal [facility] Urgent Care Visit Reporton 0 01-07-2025 Urgent Care Visit Report [facility] [address] [place] [address] OFFICE VISIT Date of Service: 01/07/25 MR#: [id number] Acct: [id number] Name: MENDOZA JOHNSON Rep #: [id number] : 1975 Provider: BHUMIKA Carver Age/Sex: 49/F Location: [facility] Status: Signed Intake Vital Signs 08/24/23 20:44 [...] noticed it was back on her abdomen. [facility] Medical History (Updated 01/07/25 @ 07:49 by Rojelio BAI, PA) History of palpitations Allergic dermatitis Hypothyroidism Osteoporosis Hypertension Surgical History History of appendectomy Social History household members: spouse Smoking Status: Never smoker alcohol intake: current alcohol intake frequency: holidays/special occasions only substance use type: does not use HPI HPI Details: MEDNOZA JOHNSON, is a 49 F who presents [...] markers were elevated, and notes victor manuel bliss is currently not being treated for any rheumatologic disorders at this time though does admit to chronic complaints of hand pain in particular. ROS Const Constitutional: No other (As above) Exam Const General: cooperative, healthy appearing and no acute distress Orientation: alert and awake [facility] Head: normal to inspection Ears: hearing grossly [...] of palpita (more content not included)... Normal [facility] CNTHERAPYon 06-14-2024 CNTHERAPY OT/PT/Speech Visit (PTWS) MENDOZA JOHNSON ([id number]) 1975 F Date Time Provider Department 06/14/24 9:30 AM ELIZ SIFUENTES PTWS Date Time Provider Department Center 06/14/2024 9:30 AM [id number] SIFUENTES PTWS Mae Knowles Reason for Visit: [...] Take 1 tablet by mouth once daily. Provider Contracting Consultant: Addendum Therapy (PT/OT/Speech/Resp) ID: [id number] 06/14/2024 10:01 AM Author: ELIZ SIFUENTES Signed by ELIZ SIFUENTES PT on 06/14/2024 at 10:01 AM * * * This document replaces document [id number] * * * Document text: Program_ID:[id number] Access Code: [email or web address] URL: [email or web address] Date: 06-14-2024 Prepared By: Eliz Sifuentes Program [...] 3-4 sets - 15 reps ----- Normal [facility] THERAPY NTon 06-14-2024 THERAPY NT HNO ID: [id number] Author: ELIZ SIFUENTES, PT Service: ? Author Type: Physical Therapist Type: Therapy (PT/OT/Speech/Resp) Filed: 06/14/2024 10:01 Note Text: Program_ID:[id number] Access Code: [email or web address] URL: [email or web address] Date: 06-14-2024 Prepared By: Eliz Sifuentes Program [...] - 3-4 sets - 15 reps Normal [facility] CNTHERAPYon 06-01-2024 CNTHERAPY OT/PT/Speech Visit (PTWS) MENDOZA JOHNSON ([id number]) 1975 F Date Time Provider Department 06/01/24 9:30 AM FARRAH WHITING PTADRIEN Date Time Provider Department [place] 06/01/2024 9:30 AM [id number] WHITING Reason for Visit: Physical Therapy [503] [...] 1 tablet by mouth once daily. Normal [facility] CNTHERAPYon 05-22-2024 CNTHERAPY OT/PT/Speech Visit (PTWS) MENDOZA JOHNSON ([id number]) 1975 F Date Time Provider Department 05/22/24 3:00 PM ELIZ SIFUENTES PTWS Date Time Provider Department Center 05/22/2024 3:00 PM [id number] SIFUENTES PTWS Mae Benson Reason for Visit: Physical Therapy [...] 1 tablet by mouth once daily. Normal [facility] [id number] 05-15-2024 [id number] O ID: [id number] Author: ELIZ SIFUENTES PT Service: ? Author Type: Physical Therapist Type: [id number] Filed: 05/15/2024 15:35 Note Text: [facility] Physical Therapy Plan of Care Certification Patient Name: Mendoza Johnson : 1975 [facility] #: [id number] Date: 05/15/2024 To: Chey Plata DO From Therapist: Eliz Sifuentes PT RE: Patient Certification/ Recertification Your review, approval and electronic signature are required in order to comply with Payor: MMO / Plan: [facility] / Product Type: PPO / regulations. [...] 05/22/24 Goals updated on 05/15/2024 through 06/26/24 [place] in home exercise program. -- MET Patient [...] Patient to be seen for Gait Training (60309), Self-residential management (43567), Therapeutic activities (14625), Manual therapy (03771), Therapeutic exercise (85432), Neuromuscular re-education (45014) PLAN FOR NEXT VISIT: assess symptom response with scapular stabilization using theraband resistance For further details regarding this patient refer to the Physical Therapy electronically documented visit dated 05/15/2024. Provider Attestation I have reviewed the treatment plan for Mendoza Izaiah Johnson, [facility]# [id number] for the period of 05/15/24 -- 06/26/24, established on 05/15/2024. Signature certifies the need for therapy services. Normal [facility] CNTHERAPYon 05-15-2024 CNTHERAPY OT/PT/Speech Visit (PTWS) MENDOZA JOHNSON ([id number]) 1975 F Date Time Provider Department 05/15/24 3:00 PM ELIZ SIFUENTES PTADRIEN Date Time Provider Department Center 05/15/2024 3:00 PM [id number] SIFUENTES PTADRIEN Knowles Reason for Visit: PT Progress Note [1596] Primary Visit Diagnosis:Calcific tendinitis of right shoulder [M75.31] Allergies As of Date: 05/15/2024 Noted Allergy Reaction TREE AND SHRUB POLLEN 09/01/2020 14 - Other: See Comments Comments: seasonal Date Reviewed: 03/09/2024 Reviewed by: Chey Plata DO - Fully Assessed Prescriptions as of 05/15/2024 [...] Take 1 tablet by mouth once daily. Provider Contracting Consultant: Addendum Therapy (PT/OT/Speech/Resp) ID: [id number] 05/15/2024 3:24 PM Author: ELIZ SIFUENTES Signed by ELIZ SIFUENTES PT on 05/15/2024 at 3:24 PM * * * This document replaces document [id number] * * * Document text: Program_ID:[id number] Access Code: [email or web address] URL: [email or web address] Date: 05-15-2024 Prepared By: Eliz Sifuentes Program [...] 4 sets - 8-10 reps ----- Normal [facility] THERAPY NTon 05-15-2024 THERAPY NT HNO ID: [id number] Author: ELIZ SIFUENTES, PT Service: ? Author Type: Physical Therapist Type: Therapy (PT/OT/Speech/Resp) Filed: 05/15/2024 15:24 Note Text: Program_ID:[id number] Access Code: [email or web address] URL: [email or web address] Date: 05-15-2024 Prepared By: Eliz O'Honorio Program Notes Exercises - Seated Shoulder Shrug [...] - 4 sets - 8-10 reps Normal [facility] CNTHERAPYon 05-08-2024 CNTHERAPY OT/PT/Speech Visit (PTWS) MENDOZA JOHNSON ([id number]) 1975 F Date Time Provider Department 05/08/24 3:30 PM FARRAH WHITING PTADRIEN Date Time Provider Department [place] 05/08/2024 3:30 PM [id number], MARIAH PTADRIEN Knowles Reason for Visit: Physical [...] 1 tablet by mouth once daily. Normal [facility] CNTHERAPYon 05-01-2024 CNTHERAPY OT/PT/Speech Visit (PTWS) MENDOZA JOHNSON ([id number]) 1975 F Date Time Provider Department 05/01/24 3:30 PM FARRAH WHITING PTADRIEN Date Time Provider Department Center 05/01/2024 3:30 PM [id number], MARIAH PTWS Mae Knowles Reason for Visit: [...] Take 1 tablet by mouth once daily. Provider Contracting Consultant: Addendum Therapy (PT/OT/Speech/Resp) ID: [id number] 05/01/2024 4:00 PM Author: FARRAH WHITING Signed by FARRAH WHITING FIELD CONSULTANT on 05/01/2024 at 4:00 PM * * * This document replaces document [id number] * * * Document text: Program_ID:[id number] Access Code: [email or web address] URL: [email or web address] [employer]/ Date: 05-01-2024 Prepared By: Eliz Sifuentes Program [...] 2 sets - 10 reps ----- Normal [facility] THERAPY NTon 05-01-2024 THERAPY NT HNO ID: [id number] Author: FARRAH WHITING PTA Service: ? Author Type: Buyer Internship Type: Therapy (PT/OT/Speech/Resp) Filed: 05/01/2024 16:00 Note Text: Program_ID:[id number] Access Code: [email or web address] URL: [email or web address] [employer]/ Date: 05-01-2024 Prepared By: Eliz Sifuentes Program [...] - 2 sets - 10 reps Normal [facility] CNTHERAPYon 04-10-2024 CNTHERAPY OT/PT/Speech Visit (PTWS) MENDOZA JOHNSON ([id number]) 1975 F Date Time Provider Department 04/10/24 2:45 PM FARRAH WHITING PTWS Date Time Provider Department [place] 04/10/2024 2:45 PM [id number], MARIAH PTWS Mae Knowles Reason for Visit: [...] 1 tablet by mouth once daily. Normal [facility] CNTHERAPYon 04-04-2024 CNTHERAPY OT/PT/Speech Visit (PTWS) MENDOZA JOHNSON ([id number]) 1975 F Date Time Provider Department 04/04/24 3:45 PM SIOBHAN PATEL PTADRIEN Date Time Provider Department [place] 04/04/2024 3:45 PM [id number] PATEL Reason for Visit: Physical Therapy [503] Primary [...] Take 1 tablet by mouth once daily. Provider Contracting Consultant: Therapy (PT/OT/Speech/Resp) ID: [id number] 04/04/2024 4:23 PM Author: SIOBHAN PATEL Signed by SIOBHAN PATEL PT, DPT on 04/04/2024 at 4:23 PM Document text: Program_ID:[id number] Access Code: [email or web address] URL: [email or web address] Date: 04-04-2024 Prepared By: Eliz Sifuentes Program [...] 2-3 sets - 10 reps ----- Normal [facility] THERAPY NTon 04-04-2024 THERAPY NT HNO ID: [id number] Author: SIOBHAN PATEL PT, DPT Service: ? Author Type: Physical Therapist Type: Therapy (PT/OT/Speech/Resp) Filed: 04/04/2024 16:23 Note Text: Program_ID:[id number] Access Code: [email or web address] URL: [email or web address] Date: 07-10-2024 Prepared By: Eliz Sifuentes Program Notes Exercises [...] - 2-3 sets - 10 reps Normal [facility] [id number] 03-27-2024 [id number] HNO ID: [id number] Author: ELIZ SIFUENTES PT Service: ? Author Type: Physical Therapist Type: [id number] Filed: 03/27/2024 16:27 Note Text: [facility] Physical Therapy Plan of Care Certification Patient Name: Mendoza Johnson : 1975 CC #: [id number] Date: 03/27/2024 To: Chey Plata, DO From Therapist: Eliz Sifuentes PT RE: Patient Certification/ Recertification Your review, approval and electronic signature are required in order to comply with Payor: MMO / Plan: O [facility] PPO / Product Type: PPO / regulations. [...] of Care: created on 03/27/24 through 05/22/24 [place] in home exercise program. Patient will decrease [...] Planned: 8 Planned Treatment Interventions: Gait Training (64856), Self-residential management (07810), Therapeutic activities (18994), Manual therapy (74889), Therapeutic exercise (34955), Neuromuscular re-education (52220) PLAN FOR NEXT VISIT: isometrics Patient demonstrates good understanding of plan of care and treatment. The above goals and plan of care were discussed and agreed upon by patient/family. For further details regarding this patient refer to the Physical Therapy electronically documented visit dated 03/27/2024. Provider Attestation I have reviewed the treatment plan for Mendoza Izaiah Johnson, [facility]# [id number] for the period of 03/27/24 -- 05/22/24, established on 03/27/2024. Signature certifies the need for therapy services. Normal [facility] CNTHERAPYon 03-27-2024 CNTHERAPY OT/PT/Speech Visit (PTWS) MENDOZA JOHNSON ([id number]) 1975 F Date Time Provider Department 03/27/24 3:45 PM ELIZ SIFUENTES PTWS Date Time Provider Department Center 03/27/2024 3:45 PM [id number] SIFUENTES PTWS Mae Knowles Reason for Visit: [...] Take 1 tablet by mouth once daily. Provider Contracting Consultant: Addendum Therapy (PT/OT/Speech/Resp) ID: [id number] 03/27/2024 4:05 PM Author: ELIZ SIFUENTES Signed by ELIZ SIFUENTES PT on 03/27/2024 at 4:05 PM * * * This document replaces document [id number] * * * Document text: Program_ID:[id number] Access Code: [email or web address] URL: [email or web address] Date: 03-27-2024 Prepared By: Eliz Sifuentes Program [...] 2-3 sets - 10 reps ----- Normal [facility] THERAPY NTon 03-27-2024 THERAPY NT HNO ID: [id number] Author: ELIZ SIFUENTES, ROCIO Service: ? Author Type: Physical Therapist Type: Therapy (PT/OT/Speech/Resp) Filed: 03/27/2024 16:05 Note Text: Program_ID:[id number] Access Code: [email or web address] URL: [email or web address] Date: 03-27-2024 Prepared By: Eliz Sifuentes Program [...] - 2-3 sets - 10 reps Normal [facility] CNOVon 03-09-2024 CNOV Office Visit (ORAVON ) MENDOZA JOHNSON ([id number]) 1975 F Date Time Provider Department 03/09/24 9:15 AM CHEY PLATA During your visit today, we recorded the following information about you: Chey Plata DO 03/09/2024 9:24 AM Signed Follow-up with me in 6 weeks, can be virtual Follow-up with PT in 2-3 weeks Chey Plata DO 03/09/2024 1:14 PM Signed Minimally Invasive Tenotomy Informed Consent Consent Obtained: Verbal [place] Protocol A moment to CARE was completed. [...] subacromial bursa Informed Consent Consent Obtained: Verbal [place] Protocol A moment to CARE was completed. [...] when applicable DO Jarvis Vaughn Vikas D, 03/13/2024 10:48 AM Signed (more content not included)... Normal [facility] Large Joint Arthro/Inj: R frank bacromial bursaon 03-09-2024 Chey Plata, 03/09/2024 1:14 PM Large Joint Arthro/Inj: R subacromial bursa Informed Consent Consent Obtained: Verbal [place] Protocol A moment to CARE was completed. [...] Plan of Care Visit completed when applicable [facility] Minimally Invasive Tenotomyo n 03-09-2024 Chey Plata DO 03/09/2024 1:14 PM Minimally Invasive Tenotomy Informed Consent Consent Obtained: Verbal [place] Protocol A moment to CARE was completed. [...] Plan of Care Visit completed when applicable [facility] SHOULDER-INJECTION RT (PO C) YURI USE ONLYon 03-09-2024 [facility] SHOULDER RTon 02-23-2024 US SHOULDER RT * * *Final Report* * [...] bursal with mild hyperemia and dynamic impingement. Funeral Home Director: JB Transcribe Date/Time: Feb 23 2024 2:56P Dictated by : ENMANUEL BETANCOURT MD This examination was interpreted and the report reviewed and electronically signed by: ENMANUEL BETANCOURT MD on Feb 23 2024 4:25PM EST [id number] Normal [facility] US Shoulder - righton 2023 IMPRESSION: Marked calcific tendinosis supraspinatus, corresponding to findings on radiographs. Mild subacromial/subdeltoi d bursal with mild hyperemia and dynamic impingement. Funeral Home Director: JB Transcribe Date/Time: Feb 23 2024 2:56P Dictated by : ENMANUEL BETANCOUTR MD This examination was interpreted and the report reviewed and electronically signed by: ENMANUEL BETANCOURT MD on Feb 23 2024 4:25PM [facility] DIVISION OF RADIOLOGY * * *Final Report* * * DATE OF EXAM: Feb 23 2024 2:55PM [facility] - US SHOULDER RT / PROCEDURE [...] Mild degenerative changes. DIVISION OF RADIOLOGY Provider, [facility] - 02/23/2024 * * *Final Report* * * DATE OF EXAM: Feb 23 2024 2:55PM [facility] - SHOULDER RT / PROCEDURE REASON: Calcific [...] bursal with mild hyperemia and dynamic impingement. Funeral Home Director: JB Transcribe Date/Time: Feb 23 2024 2:56P Dictated by : ENMANUEL BETANCOURT MD This examination was interpreted and the report reviewed and electronically signed by: ENMANUEL BETANCOURT MD on Feb 23 2024 4:25PM EST [facility] Radiology Study observation (narrative) Venessa lopez [facility] US Shoulder - rightOrdered B y: [facility] Provider on 02-23-2024 [facility] CNOVon 02-22-2024 CNOV Office Visit (LOORRM ) SADIQ JOHNSONY Izaiah ([id number]) 1975 F Date Time Provider Department 02/22/24 [...] results and radiologist's interpretation, available in the [facility] health record. Images were reviewed with the [...] will be enrolled in shoulder health care attorney to assist in preparation for procedure. Verbal health education was given to patient. Patient verbalizes understanding and agrees with the treatment plan as detailed above. Chey Plata DO Allergies As of Date: 02/22/2024 Noted Allergy Reaction TREE AND SHRUB POLLEN 09/01/2020 14 - Other: See Comments Comments: seasonal Date Reviewed: 02/22/2024 Reviewed by: Chey Plata DO - Fully Assessed Reason for Visit: New [692425] Pain (Shoulder Pain) [1343] Primary Visit Diagnosis:Calcific [...] 03/13/2016 Dyslipide (more content not included)... Normal [facility] Danielle 02-22-2024 MARLYS Telephone (LOORRM) MENDOZA JOHNSON ([id number]) 1975 F Date Time Provider Department 02/22/24 [...] calling: self Call patient at: at home [phone] (home) [phone] (cell) Was an appointment scheduled: No Closing statement: Symptom Call: Thank you for calling [facility], your call is very important. A [...] Fully Assessed Reason for Visit: Medication Question [7328] Prescriptions as of 03/07/2024 - meloxicam (MOBIC) [...] Encounter Status:Closed by KAILA DUFFY on 03/07/24 [facility] Lito 02-08-2024 CNOV Office Visit (ORTHBR ) MENDOZA JOHNSON ([id number]) 1975 F Date Time Provider Department 02/08/24 [...] to go to the emergency department in [place] Current Outpatient Medications Medication Sig oxyCODONE-acetaminoph en [...] improve her (more content not included)... Normal [facility] Danielle 02-08-2024 CNPN Telephone (RULTTB) ALEXMENDOZA Izaiah ([id number]) 1975 F Date Time Provider Department 02/08/24 GARFIELD CALVIN During your visit today, we recorded the following information about you: Garfield Calvin, JESSICA 02/08/2024 12:30 PM Signed Visit Type: ANY [...] exam on 02/23/24 : 2:25 PM at [facility]. Allergies As of Date: 02/08/2024 Noted Allergy [...] Encounter Status:Closed by SHALA HOFFMAN on 02/08/24 [facility] ([id number]) 1975 F Date Time Provider Department 02/08/24 [facility] PROVIDER LOORR During your visit today, we recorded the [...] Status:Closed by ELIEL NATARAJAN on 02/08/24 Normal [facility] XR SHLDR >/=3V AP/PHUC AP/OTH R RTon [...] limits. IMPRESSION: Progressive rotator cuff calcific tendinosis Funeral Home Director: JB Transcribe Date/Time: Feb 11 2024 12:05P Dictated by : WILSON CROWDER MD This examination was interpreted and the report reviewed and electronically signed by: WILSON CROWDER MD on Feb 11 2024 12:06PM EST [id number] Normal [facility] CNOVon 12-22-2023 CNOV Office Visit (WSTR ) MENDOZA JOHNSON ([id number]) 1975 F Date Time Provider Department 12/22/23 8:45 AM [facility] During your visit today, we recorded the following information about you: Temperature Pulse Respiration Blood pressure 98.9 degrees 68/minute 16/minute 120/62 Weight 98.2 kg Janneth Rachel APRN.DIRECTOR [employer] 12/22/2023 9:59 AM Signed CC: Patient presents with: Ear Pain: Chest congestion, sore throat x2days Patient has had chest congestion with pleuritic chest pain, sore throat, and ear discomfort for past two days. Reports was sick as well but not this bad HPI: Mendoza E Alex is a 48 year old female who [...] was revi (more content not included)... Normal [facility] Danielle 12-22-2023 DEEPALIN Telephone (UCWSTR) MENDOZA JOHNSON ([id number]) 1975 F Date Time Provider Department 12/22/23 [facility]IN[facility] FRAZIER [facility] During your visit today, we recorded the following information about you: Obinna Frazier APRN.DIRECTOR [employer] 12/22/2023 7:55 PM Signed Notified of positive [...] Status:Closed by OBINNA FRAZIER on 12/22/23 Normal [facility] COVID AND INFLUENZA A/B AND RSV NAAT, ROUTINEon 12-22-2023 SARS-CoV-2 (COVID-19) RNA NYDIA+probe Ql (Unsp spec) COVID 19 RESULT: Not detected The method used is RT-PCR or an equivalent NAAT method. Reference Range (the expected result in uninfected individuals): Not detected INFLUENZA A PCR: Detected INFLUENZA B PCR: Not detected RSV PCR: Not detected Abnormal [facility] Comment on above: Performed By: #### C VFLRS ####[facility] LABCLIA [id number] [place] [address] [place] XR CHEST 2V FRONTAL/LATon XR CHEST 2V [...] tissues: Unremarkable. IMPRESSION: No acute radiographic abnormality. Funeral Home Director: PSCManuel Transcribe Date/Time: Dec 22 2023 9:32A Dictated by : ALISSA REYES MD This examination was interpreted and the report reviewed and electronically signed by: ALISSA REYES MD on Dec 22 2023 9:34AM EST [id number] N Normal [facility] XR Chest PA and Lateralon IMPRESSION: No acute radiographic abnormality. Funeral Home Director: JB Transcribe Date/Time: Dec 22 2023 9:32A [...] soft tissues: Unremarkable. DIVISION OF RADIOLOGY Provider, [facility] - 12/22/2023 * * *Final Report* * [...] Unremarkable. IMPRESSION IMPRESSION: No acute radiographic abnormality. Funeral Home Director: [facility] Transcribe Date/Time: Dec 22 2023 9:32A Dictated by : ALISSA REYES MD This examination was interpreted and the report reviewed and electronically signed by: ALISSA REYES MD on Dec 22 2023 9:34AM EST [facility] Radiology Study observation (narrative) Venessa lopez [facility] XR Chest PA and LateralOrder ed By: [facility] Provider on 12-22-2023 [facility] Absolute lymphocyte countOrd ered By: Griselda Stewart on 08-24-2023 Lymphocytes Auto (Unsp spec) [#/Vol] 2.93 10*3/uL 0.83-4.51 [facility] Basophil percentageOrdered B y: Griselda Stewart on 08-24-2023 Basophils/100 WBC (Bld) 0.3 % 0-1 [facility] Bilirubin [Mass/Vol] 0.30 mg/dL 0.20-1.00 [facility] Comment on above: For patients on eltr ombopag therapy, use of Dimension Loyal TBIL is not recommended. Chloride [Moles/Vol] 105 mmol/L 98-107 [facility] Eosinophils/100 WBC (Bld) 1.6 % 0-5 [facility] Glucose [Mass/Vol] 97 mg/dL 74-106 [facility] Lactate [Moles/Vol] 0.6 mmol/L 0.4-2.0 [facility] Neutrophils (Bld) [#/Vol] 9.9 10*3/uL 2.0-7.7 [facility] Neutrophils/100 WBC (Bld) 69.9 % 47-70 [facility] Potassium [Moles/Vol] 3.6 mmol/L 3.5-5.[address] [facility] Protein [Mass/Vol] 7.7 g/dL 6.4-8.2 [facility] Sodium [Moles/Vol] 137 mmol/L 136-145 [facility] WBC (Bld) [#/Vol] 14.2 10*3/uL 4.4-11.0 [facility] Basophil percentage 0 SEEN /hpf 0-5 [facility] Bilirubin Test strip Ql (U)O rdered By: Griselda Stewart on 08-24-2023 Bilirubin Ql (U) Negative Negative [facility] Blood erythrocytes count (nu mber/volume)Ordered By: Griselda Stewart on 08-24-2023 RBC (Bld) [#/Vol] 4.53 10*6/uL 4.2-5.4 [facility] Blood hemoglobin measurement (mass/volume)Ordered By: Griselda Stewart on 08-24-2023 Hemoglobin (Bld) [Mass/Vol] 12.8 g/dL 12.0-15.0 [facility] Blood lymphocytes/100 leukoc ytesOrdered By: Griselda Stewart on 08-24-2023 Lymphocytes/100 WBC (Bld) 20.7 % 19-41 [facility] Blood monocytes/100 leukocyt esOrdered By: [facility] Stewart on 08-24-2023 Monocytes/100 WBC (Bld) 7.0 % 0-10 [facility] Blood platelet mean volumeOr dered By: Griselda Stewart on 08-24-2023 Platelet mean volume (Bld) [Entitic vol] 11.7 fL 6.2-12.0 [facility] Determination of erythrocyte mean corpuscular volume (MCV)Ordered By: Griselda Stewart on 08-24-2023 MCV (RBC) [Entitic vol] 88.5 fL 81-99 [facility] Hematocrit Auto (Bld) [Volum e fraction]Ordered By: Griselda Stewart on 08-24-2023 Hematocrit (Bld) [Volume fraction] 40.1 % 37-47 [facility] Ketones Test strip Ql (U)Ord ered By: Griselda Stewart on 08-24-2023 Ketones Ql (U) Negative Negative [facility] Laboratory - Chemistry and C hemistry - challengeOrdered By: Griselda Stewart on 08-24-2023 ALP [Catalytic activity/Vol] 89 U/L 45-117 [facility] ALT [Catalytic activity/Vol] 28 U/L 13-56 [facility] CO2 [Moles/Vol] 28.0 mmol/L 21.0-32.0 [facility] Globulin (S) [Mass/Vol] 4.2 g/dL 2.2-4.2 [facility] Lipase [Catalytic activity/Vol] 57 U/L 13-75 [facility] Comment on above: Please note:LIPASE r evised reference range effective 23. New Lipase methodology. Expected to produce lower values than the previous assay method. NEW Reference Range: 13 - 75 U/L Urea nitrogen/Creatinine [Mass ratio] 17.4 mg/mg 10-20 [facility] Laboratory - Hematology and Cell countsOrdered By: Griselda Stewart on 08-24-2023 Erythrocyte distribution width (RBC) [Entitic vol] 41.0 fL 35.1-43.9 [facility] Erythrocyte distribution width (RBC) [Ratio] 12.7 % 11.6-14.6 [facility] Immature granulocytes/100 WBC (Bld) 0.500 % 0.0-0.9 [facility] Comment on above: IG% - Immature Granu locytes (promyelocytes, myelocytes and metamyelocytes) > 1% indicates that a LEFT SHIFT is Present. MCH (RBC) [Entitic mass] 28.3 pg 27.0-32.0 [facility] Nucleated RBC/100 WBC (Bld) [Ratio] 0 % 0-5 [facility] MCHC Auto (RBC) [Mass/Vol]Or dered By: Griselda Stewart on 08-24-2023 MCHC (RBC) [Mass/Vol] 31.9 g/dL 32-[address] [facility] Mucus LM Ql (Urine sed)Order ed By: Griselda Stewart on 08-24-2023 Mucus Ql (Urine sed) RARE /hpf [facility] Nitrite Test strip Ql (U)Ord ered By: Griselda Stewart on 08-24-2023 Nitrite Ql (U) Negative Negative [facility] No Panel InformationOrdered By: Griselda Stewart on 08-24-2023 Estimated Creatinine Clearance Calc 80.51 ml/min [facility] Estimated GFR (MDRD) Amer 98 mL/min >60 [facility] Comment on above: GFR Calc Estimated GFR (MDRD) Non-Af Amer 81 mL/min >60 [facility] Comment on above: Non- GFR Calc Platelets bldOrdered By: Krystin Stewart on 08-24-2023 Platelets (Bld) [#/Vol] 273 10*3/uL 150-450 [facility] Protein Test strip Ql (U)Ord ered By: Griselda Stewart on 08-24-2023 Protein Ql (U) Negative Negative [facility] Serum or plasma albumin jamil urement (mass/volume)Ordered By: Krystinus Stewart on 08-24-2023 Albumin [Mass/Vol] 3.5 g/dL 3.2-5.0 [facility] Serum or plasma albumin/glob ulin mass ratioOrdered By: Rem Ungchalino on 08-24-2023 Albumin/Globulin [Mass ratio] 0.8 {ratio} 0.9-2.4 [facility] Serum or plasma calcium jamil urement (mass/volume)Ordered By: Remus Stewart on 08-24-2023 Calcium [Mass/Vol] 8.5 mg/dL 8.5-10.1 [facility] Serum or plasma creatinine m easurement (mass/volume)Ordered By: Remus Stewart on 08-24-2023 Creatinine [Mass/Vol] 0.80 mg/dL 0.55-1.[address] [facility] Comment on above: The validity of the calculated GFR & GFRAA in patients over 70 years has not been determined. Clinical correlation is essential. Serum or plasma urea nitroge n measurement (mass/volume)Ordered By: Griselda Stewart on 08-24-2023 Urea nitrogen [Mass/Vol] 14 mg/dL 7-18 [facility] Squamous epithelial cells de tection in urine sediment by light microscopyOrdered By: Griselda Stewart on 08-24-2023 Epithelial cells.squamous LM Ql (Urine sed) 0-5 SEEN /hpf 5-10 [facility] Thin prep Papanicolaou smear with manual screeningOrdered By: Griselda Stewart on 08-24-2023 Thin prep Papanicolaou smear with manual screening 20 U/L 15-37 [facility] Thin prep Papanicolaou smear with manual screening 4 5-15 [facility] Urine blood detectionOrdered By: Remus Stewart on 08-24-2023 RBC Ql (U) 10 /ul Negative [facility] RBC Ql (U) 0-5 SEEN /hpf 0-5 [facility] Urine clarityOrdered By: Rem us Pat on 08-24-2023 Clarity (U) Sl. Cloudy Clear [facility] Urine color determinationOrd ered By: Griselda Stewart on 08-24-2023 Color (U) Yellow Yellow [facility] Urine glucose detectionOrder ed By: Griselda Stewart on 08-24-2023 Glucose Ql (U) Normal mg/dl Normal [facility] Urine leukocyte esterase det ection by dipstickOrdered By: Griselda Stewart on 08-24-2023 Leukocyte esterase Test strip Ql (U) Negative Negative [facility] Urine pHOrdered By: Griselda Martinez gur on 08-24-2023 pH (U) 5.0 [pH] 5.0 - 8.0 [facility] Urine sediment bacteria coun t by microscopy (number/high power field)Ordered By: Griselda Stewart on 08-24-2023 Bacteria LM.HPF (Urine sed) [#/Area] 1 /[HPF] None Seen [facility] Urine specific gravity measu rementOrdered By: Griselda Stewart on 08-24-2023 Specific gravity (U) [Rel density] 1.025 1.002-1.030 [facility] Urobilinogen Auto test strip Ql (U)Ordered By: Griselda Stewart on 08-24-2023 Urobilinogen Ql (U) Normal mg/dl Normal [facility] 25(OH)D3 SerPl-mCncon 2022 25-hydroxyvitamin D3 [Mass/Vol] 29.1 ng/mL Low 31.0-80.0 [facility] Comment on above: Order Comment: Speci men Type: BLOOD SPECIMENOrdering Facility: External Submitter Address: , , Result Comment: Clas sification of 25 OH Vitamin D status: Deficiency/Insufficiency: < or = 30 ng/ml. Sufficiency/Optimal Levels: 31-80 ng/mL Toxicity: > 100 ng/mL. Test performed by chemiluminescent immunoassay. Performed By: #### 1 989-3 ####[facility] LABCLIA [id number] [place] [address] [place] CBC panel Auto (Bld)on 07-07 Erythrocyte distribution width (RBC) [Ratio] 12.7 % Normal 11.5-15.0 [facility] Comment on above: Order Comment: Speci men Type: BLOOD SPECIMENOrdering Facility: External Submitter Address: , , Performed By: #### 5 8410-2 ####[facility] [id number] [address] [place] Hematocrit (Bld) [Volume fraction] 42.3 % Normal 36.0-46.0 [facility] Comment on above: Order Comment: Speci men Type: BLOOD SPECIMENOrdering Facility: External Submitter Address: , , Performed By: #### 5 8410-2 ####[facility] [id number] [address] STATES [place] [facility] Hemoglobin (Bld) [Mass/Vol] 13.5 g/dL Normal 11.5-15.5 [facility] Comment on above: Order Comment: Speci men Type: BLOOD SPECIMENOrdering Facility: External Submitter Address: , , Performed By: #### 5 8410-2 ####[facility] [id number] [address] [place] MCH (RBC) [Entitic mass] 28.3 pg Normal 26.0-34.0 [facility] Comment on above: Order Comment: Speci men Type: BLOOD SPECIMENOrdering Facility: External Submitter Address: , , Performed By: #### 5 8410-2 ####[facility] [id number] [address] [place] MCHC (RBC) [Mass/Vol] 31.9 g/dL Normal 30.5-36.0 [facility] Comment on above: Order Comment: Speci men Type: BLOOD SPECIMENOrdering Facility: External Submitter Address: , , Performed By: #### 5 8410-2 ####[facility] [id number] [address] STATES OF [facility] MCV (RBC) [Entitic vol] 88.7 fL Normal 80.0-100.0 [facility] Comment on above: Order Comment: Speci men Type: BLOOD SPECIMENOrdering Facility: External Submitter Address: , , Performed By: #### 5 8410-2 ####[facility] LABCLIA [id number] [place] [address] [place] Nucleated RBC (Bld) [#/Vol] 10*3/uL Normal <0.01 [facility] Comment on above: Order Comment: Speci men Type: BLOOD SPECIMENOrdering Facility: External Submitter Address: , , Performed By: #### 5 8410-2 ####[facility] LABIA [id number] [place] [address] [place] Platelet mean volume (Bld) [Entitic vol] 11.8 fL Normal 9.0-12.7 [facility] Comment on above: Order Comment: Speci men Type: BLOOD SPECIMENOrdering Facility: External Submitter Address: , , Performed By: #### 5 8410-2 ####[facility] LABIA [id number] [place] [address] [place] Platelets (Bld) [#/Vol] 254 10*3/uL Normal 150-400 [facility] Comment on above: Order Comment: Speci men Type: BLOOD SPECIMENOrdering Facility: External Submitter Address: , , Performed By: #### 5 8410-2 ####[facility] LABIA [id number] [place] [address] [place] RBC (Bld) [#/Vol] 4.77 10*6/uL Normal 3.90-5.20 [facility] Comment on above: Order Comment: Speci men Type: BLOOD SPECIMENOrdering Facility: External Submitter Address: , , Performed By: #### 5 8410-2 ####[facility] LABIA [id number] [place] [address] [place] WBC (Bld) [#/Vol] 8.49 10*3/uL Normal 3.70-11.00 [facility] Comment on above: Order Comment: Speci men Type: BLOOD SPECIMENOrdering Facility: External Submitter Address: , , Performed By: #### 5 8410-2 ####[facility] LABCLIA [id number] [place] [address] [place] CK SerPl-cCncon 07-07-2023 CK [Catalytic activity/Vol] 77 U/L Normal 42-196 [facility] Comment on above: Order Comment: Speci men Type: BLOOD SPECIMENOrdering Facility: External Submitter Address: , , Performed By: #### 2 157-6, , 2132-05 ####[facility] LABCLIA [id number] [place] [id number] [place] Comprehensive metabolic 2000 panelon 07-07-2023 Albumin [Mass/Vol] 4.4 g/dL Normal 3.9-4.9 [facility] Comment on above: Order Comment: Speci men Type: BLOOD SPECIMENOrdering Facility: External Submitter Address: , , Performed By: #### 2 157-6, , 2132-05 ####[facility] LABCLIA [id number] [place] [id number] [place] ALP [Catalytic activity/Vol] 98 U/L Normal 34-123 [facility] Comment on above: Order Comment: Speci men Type: BLOOD SPECIMENOrdering Facility: External Submitter Address: , , Performed By: #### 2 157-6, , 2132-05 ####[facility] LABCLIA [id number] [address] [address] [place] ALT [Catalytic activity/Vol] 57 U/L High 7-38 [facility] Comment on above: Order Comment: Speci men Type: BLOOD SPECIMENOrdering Facility: External Submitter Address: , , Performed By: #### 2 157-6, , 2132-05 ####[facility] LABCLIA [id number] [address] [address] [place] Anion gap [Moles/Vol] 11 mmol/L Normal 9-18 [facility] Comment on above: Order Comment: Speci men Type: BLOOD SPECIMENOrdering Facility: External Submitter Address: , , Performed By: #### 2 157-6, , 2132-05 ####[facility] LABCLIA [id number] [address] [address] [place] AST [Catalytic activity/Vol] 43 U/L High 13-35 [facility] Comment on above: Order Comment: Speci men Type: BLOOD SPECIMENOrdering Facility: External Submitter Address: , , Performed By: #### 2 157-6, , 2132-05 ####[facility] LABCLIA [id number] [place] [address] [place] Bilirubin [Mass/Vol] 0.6 mg/dL Normal 0.2-1.3 [facility] Comment on above: Order Comment: Speci men Type: BLOOD SPECIMENOrdering Facility: External Submitter Address: , , Performed By: #### 2 157-6, , 2132-05 ####[facility] LABCLIA [id number] [place] [address] [place] Calcium [Mass/Vol] 9.5 mg/dL Normal 8.5-10.2 [facility] Comment on above: Order Comment: Speci men Type: BLOOD SPECIMENOrdering Facility: External Submitter Address: , , Performed By: #### 2 157-6, , 2132-05 ####[facility] LABCLIA [id number] [place] [id number] [place] Chloride [Moles/Vol] 102 mmol/L Normal 97-105 [facility] Comment on above: Order Comment: Speci men Type: BLOOD SPECIMENOrdering Facility: External Submitter Address: , , Performed By: #### 2 157-6, , 2132-05 ####[facility] LABCLIA [id number] [address] [address] [place] CO2 [Moles/Vol] 23 mmol/L Normal 22-30 [facility] Comment on above: Order Comment: Attila freitas Type: BLOOD SPECIMENOrdering Facility: External Submitter Address: , , Performed By: #### 2 157-6, 99167-6, 2132-05 ####[facility] LABCLIA [id number] [address] [address] [place] Creatinine [Mass/Vol] 0.71 mg/dL Normal 0.58-0.96 [facility] Comment on above: Order Comment: Jessicai men Type: BLOOD SPECIMENOrdering Facility: External Submitter Address: , , Performed By: #### 2 157-6, , 2132-05 ####[facility] LABIA [id number] [address] OF [facility] Creatinine and Glomerular filtration rate.predicted panel (S/P/Bld) 105 mL/min/1.73m??? Normal >=60 [facility] Comment on above: Order Comment: Specraul freitas Type: BLOOD SPECIMENOrdering Facility: External Submitter [...] actual GFR. Performed By: #### 2 157-6, 99996-1, 2132-05 ####[facility] LABCLIA [id number] [address] [address] [place] Glucose [Mass/Vol] 98 mg/dL Normal 74-99 [facility] Comment on above: Order Comment: Jessicai zena Type: BLOOD SPECIMENOrdering Facility: External Submitter Address: , , Result Comment: The [place] Diabetes [employer] (ADA) provides guidance for cutoff [...] Standards of Medical Care in Diabetes 2016, [place] [employer]. Diabetes Care. 2016.39(Suppl 1). Performed By: #### 2 157-6, , 2132-05 ####[facility] LABCLIA [id number] [place] [address] [place] Potassium [Moles/Vol] 4.5 mmol/L Normal 3.7-5.1 [facility] Comment on above: Order Comment: Attila freitas Type: BLOOD SPECIMENOrdering Facility: External Submitter Address: , , Performed By: #### 2 157-6, , 2132-05 ####[facility] LABCLIA [id number] [place] [address] [place] Protein [Mass/Vol] 7.2 g/dL Normal 6.3-8.0 [facility] Comment on above: Order Comment: Attila freitas Type: BLOOD SPECIMENOrdering Facility: External Submitter Address: , , Performed By: #### 2 157-6, , 2132-05 ####[facility] LABCLIA [id number] [address] [address] [place] Sodium [Moles/Vol] 136 mmol/L Normal 136-144 [facility] Comment on above: Order Comment: Attila freitas Type: BLOOD SPECIMENOrdering Facility: External Submitter Address: , , Performed By: #### 2 157-6, , 2132-05 ####[facility] LABCLIA [id number] [place] [address] [place] Urea nitrogen [Mass/Vol] 16 mg/dL Normal 7-21 [facility] Comment on above: Order Comment: Speci men Type: BLOOD SPECIMENOrdering Facility: External Submitter Address: , , Performed By: #### 2 157-6, 64862-9, 2132-9 ####[facility] LABCLIA [id number] [place] [address] [place] Cyclic citrullinated peptide IgG Qnon 07-07-2023 CCP ANTIBODY IGG QUALITATIVE Negative Normal Negative [facility] Comment on above: Order Comment: Speci men Type: BLOOD SPECIMENOrdering Facility: External Submitter Address: , , Performed By: #### 3 3935-8 ####[facility] LABIA [id number] [place] [address] [place] Estradiol SerPl-mCncon 07-07 E2 [Mass/Vol] 123 pg/mL Normal [facility] Comment on above: Order Comment: Speci [...] 3243 pg/mL Second trimester : 1561 to 44748 pg/mL Third trimester : 8285 to >95221 pg/mL Post-menopausal Estradiol reference range: < 41 pg/mL Reference: 1. Estradiol - E2 (Estradiol III) [package insert V 3.0 Green[place]ic]. [facility], [place], [place], February 2016. Performed By: #### 3 051-0, 28161-5, 2243-4, 3024-7 ####[facility] LABCLIA [id number] [place] [address] [place] FSH SerPl-aCncon 07-07-2023 Follitropin Qn 16.5 m[IU]/mL Normal See comment [facility] Comment on above: Order Comment: Speci men Type: BLOOD SPECIMENOrdering Facility: External Submitter Address: , , Result Comment: Lars thurston range: Follicular: 3.5-12.5 mIU/mL Ovulation: 4.7-21.5 mIU/mL Luteal: 1.7-7.7 mIU/mL Postmenopausal: 25.8-134.8 mIU/mL Performed By: #### 3 051-0, 07548-4, 2243-4, 3024-7 ####[facility] LABCLIA [id number] [address] [place] HLA-B27 PCRon 07-07-2023 HLA-B27 DNA RESULT Negative Normal [facility] Comment on above: Order Comment: Speci [...] developed and its performance characteristics determined by [employer]. The test has not been cleared or approved by the [place] FDA. However, FDA approval was not necessary since this lab is certified under CLIA for high complexity testing. Test performed by: [facility], [address], [place] [address], CLIA [id number] Performed By: #### B 27PCR ####[facility] [id number] [place] [address] [place] Nuclear Ab IA Ql (S)on 07-07 NEENA SCR QUAL Negative Normal Negative [facility] Comment on above: Order Comment: Speci men Type: BLOOD SPECIMENOrdering Facility: External Submitter Address: , , Result Comment: The qualitative antinuclear antibody screen test performed using the following antigens: dsDNA, Chromatin, Ribosomal P, SS-A 60, SS-A 52, SS-B, Sm, SmRNP, SHED BOSS A, SHED BOSS 68, Scl-70, Estefany-1, and Centromere B. Methodology: Multiplex flow immunoassay. Performed By: #### 4 7383-5 ####[facility] [id number] [place] [address] [place] Rheumatoid fact SerPl-aCncon 07-07-2023 Rheumatoid factor Qn [IU]/mL Normal <16 [facility] Comment on above: Order Comment: Speci men Type: BLOOD SPECIMENOrdering Facility: External Submitter Address: , , Performed By: #### 1 1572-5, 3016-3, 2986-8 ####[facility] [id number] [place] [address] [place] T3Free SerPl-mCncon 07-07-20 23 Free T3 [Mass/Vol] 4.6 pg/mL High 2.3-4.1 [facility] Comment on above: Order Comment: Speci men Type: BLOOD SPECIMENOrdering Facility: External Submitter Address: , , Performed By: #### 3 051-0, 86068-5, 2243-4, 3024-7 ####[facility] [id number] [place] [address] [place] T4 Free SerPl-mCncon 023 Free T4 [Mass/Vol] 0.9 ng/dL Normal 0.9-1.7 [facility] Comment on above: Order Comment: Speci men Type: BLOOD SPECIMENOrdering Facility: External Submitter Address: , , Performed By: #### 3 051-0, 42025-3, 2243-4, 3024-7 ####[facility] LABIA [id number] [place] [address] [place] TSH SerPl-aCncon 07-07-2023 TSH Qn 0.929 m[IU]/L Normal 0.270-4.200 [facility] Comment on above: Order Comment: Speci [...] Function tests in . Thyroid, 2019:29:3:412-420. Buck Bliss, et al. 2017 Guidelines of the [place] Thyroid Association for the Diagnosis and Management of Thyroid Disease during and the . Thyroid, 2017:27:3:315-389. Performed By: #### 1 1572-5, 3016-3, 2986-8 ####[facility] [id number] [place] [address] [place] Testost SerPl-mCncon 023 Testosterone [Mass/Vol] 176 ng/dL High <40 [facility] Comment on above: Order Comment: Speci men Type: BLOOD SPECIMENOrdering Facility: External Submitter Address: , , Result Comment: Resu lt rechecked. Performed By: #### 1 1572-5, 3016-3, 2986-8 ####[facility] LABIA [id number] [place] [address] [place] Vit B12 SerPl-mCncon 023 Cobalamin (Vitamin B12) [Mass/Vol] 684 pg/mL Normal 232-1245 [facility] Comment on above: Order Comment: Speci men Type: BLOOD SPECIMENOrdering Facility: External Submitter Address: , , Performed By: #### 2 157-6, 02037-2, 2132-9 ####[facility] LABCLIA [id number] [address] [place] cCP IgG SerPl-aCncon 10-12-2 023 Cyclic citrullinated peptide IgG Qn <15 Normal <20 [facility] Comment on above: Order Comment: Speci men Type: BLOOD SPECIMENOrdering Facility: External Submitter Address: , , Performed By: #### 3 3935-8 ####[facility] LABCLIA [id number] [address] [place] Basophil percentageOrdered B y: Bo Young on 04-28-2023 Chloride [Moles/Vol] 108 mmol/L 98-107 [facility] Glucose [Mass/Vol] 92 mg/dL 74-106 [facility] Potassium [Moles/Vol] 4.0 mmol/L 3.5-5.[address] [facility] Sodium [Moles/Vol] 139 mmol/L 136-145 [facility] WBC (Bld) [#/Vol] 8.8 10*3/uL 4.4-11.0 [facility] Blood erythrocytes count (nu mber/volume)Ordered By: Bo Young on 04-28-2023 RBC (Bld) [#/Vol] 4.45 10*6/uL 4.2-5.4 [facility] Blood hemoglobin measurement (mass/volume)Ordered By: Bo Young on 04-28-2023 Hemoglobin (Bld) [Mass/Vol] 13.0 g/dL 12.0-15.0 [facility] Blood platelet mean volumeOr dered By: Bo Young on 04-28-2023 Platelet mean volume (Bld) [Entitic vol] 11.5 fL 6.2-12.0 [facility] Determination of erythrocyte mean corpuscular volume (MCV)Ordered By: Bo Young on 04-28-2023 MCV (RBC) [Entitic vol] 87.6 fL 81-99 [facility] Hematocrit Auto (Bld) [Volum e fraction]Ordered By: Bo Young on 04-28-2023 Hematocrit (Bld) [Volume fraction] 39.0 % 37-47 [facility] Laboratory - Chemistry and C hemistry - challengeOrdered By: Bo Young on 04-28-2023 CO2 [Moles/Vol] 24.0 mmol/L 21.0-32.0 [facility] Urea nitrogen/Creatinine [Mass ratio] 17.2 mg/mg 10-20 [facility] Laboratory - Hematology and Cell countsOrdered By: Bo Young on 04-28-2023 Erythrocyte distribution width (RBC) [Entitic vol] 39.8 fL 35.1-43.9 [facility] Erythrocyte distribution width (RBC) [Ratio] 12.5 % 11.6-14.6 [facility] MCH (RBC) [Entitic mass] 29.2 pg 27.0-32.0 [facility] MCHC Auto (RBC) [Mass/Vol]Or dered By: Bo Young on 04-28-2023 MCHC (RBC) [Mass/Vol] 33.3 g/dL 32-[address] [facility] No Panel InformationOrdered By: Bo Young on 04-28-2023 Estimated Creatinine Clearance Calc 85.67 ml/min [facility] Estimated GFR (MDRD) Amer 105 mL/min >60 [facility] Comment on above: GFR Calc Estimated GFR (MDRD) Non-Af Amer 87 mL/min >60 [facility] Comment on above: Non- GFR Calc Platelets bldOrdered By: Bo Young on 04-28-2023 Platelets (Bld) [#/Vol] 256 10*3/uL 150-450 [facility] Serum or plasma calcium jamil urement (mass/volume)Ordered By: Bo Young on 04-28-2023 Calcium [Mass/Vol] 8.4 mg/dL 8.5-10.1 [facility] Serum or plasma creatinine m easurement (mass/volume)Ordered By: Bo Young on 04-28-2023 Creatinine [Mass/Vol] 0.76 mg/dL 0.55-1.[address] [facility] Comment on above: The validity of the calculated GFR & GFRAA in patients over 70 years has not been determined. Clinical correlation is essential. Serum or plasma urea nitroge n measurement (mass/volume)Ordered By: Bo Young on 04-28-2023 Urea nitrogen [Mass/Vol] 13 mg/dL 7-18 [facility] Thin prep Papanicolaou smear with manual screeningOrdered By: Bo Young on 04-28-2023 Thin prep Papanicolaou smear with manual screening 7 5-15 [facility] Absolute lymphocyte countOrd ered By: Dr. Velazquez on 02-17-2023 Lymphocytes Auto (Unsp spec) [#/Vol] 1.58 10*3/uL 0.83-4.51 [facility] Basophil percentageOrdered B y: Dr. Velazquez on 02-17-2023 Basophils/100 WBC (Bld) 0.6 % 0-1 [facility] Bilirubin [Mass/Vol] 0.60 mg/dL 0.20-1.00 [facility] Comment on above: For patients on eltr ombopag therapy, use of Dimension Loyal TBIL is not recommended. Chloride [Moles/Vol] 109 mmol/L 98-107 [facility] Cholesterol [Mass/Vol] 226 mg/dL <200 [facility] Comment on above: <200 mg/dL Desirable 200-240 mg/dL Borderline >240 mg/dL High Risk Eosinophils/100 WBC (Bld) 3.2 % 0-5 [facility] Glucose [Mass/Vol] 103 mg/dL 74-106 [facility] Comment on above: Fasting Glucose resu lt from 100 to 125 mg/dL suggests IMPAIRED HOMEOSTASIS per A.D.A. criteria. Neutrophils (Bld) [#/Vol] 5.8 10*3/uL 2.0-7.7 [facility] Neutrophils/100 WBC (Bld) 69.4 % 47-70 [facility] Potassium [Moles/Vol] 3.6 mmol/L 3.5-5.[address] [facility] Protein [Mass/Vol] 7.7 g/dL 6.4-8.2 [facility] Sodium [Moles/Vol] 140 mmol/L 136-145 [facility] Testosterone [Mass/Vol] 9.88 ng/dL [facility] Comment on above: CENTRAL 90% REFERENC E RANGES MALE AGE <50 197.44 - 669.58 ng/dL MALE AGE > or = 50 187.72 - 684.19 ng/dL FEMALE AGE <50 8.38 - 35.01 ng/dL FEMALE AGE > or = 50 <7.00 - 35.92 ng/dL Effective as of 04/21/21 Triglyceride [Mass/Vol] 125 mg/dL <199 [facility] Comment on above: The drugs N-Acetylcy steine and Metamizole may falsely depress this assay.Serum Triglycerides Reference Interval Normal <150 mg/dL Borderline high 150 - 199 mg/dL High 200 - 499 mg/dL Very High > or = 500 mg/dL WBC (Bld) [#/Vol] 8.3 10*3/uL 4.4-11.0 [facility] Blood erythrocytes count (nu mber/volume)Ordered By: Dr. Velazquez on 02-17-2023 RBC (Bld) [#/Vol] 4.51 10*6/uL 4.2-5.4 [facility] Blood hemoglobin measurement (mass/volume)Ordered By: Dr. Velazquez on 02-17-2023 Hemoglobin (Bld) [Mass/Vol] 13.0 g/dL 12.0-15.0 [facility] Blood lymphocytes/100 leukoc ytesOrdered By: Dr. Velazquez on 02-17-2023 Lymphocytes/100 WBC (Bld) 19.0 % 19-41 [facility] Blood monocytes/100 leukocyt esOrdered By: Dr. Velazquez on 02-17-2023 Monocytes/100 WBC (Bld) 7.4 % 0-10 [facility] Blood platelet mean volumeOr dered By: Dr. Velazquez on 02-17-2023 Platelet mean volume (Bld) [Entitic vol] 11.2 fL 6.2-12.0 [facility] Determination of erythrocyte mean corpuscular volume (MCV)Ordered By: Dr. Velazquez on 02-17-2023 MCV (RBC) [Entitic vol] 90.9 fL 81-99 [facility] Hematocrit Auto (Bld) [Volum e fraction]Ordered By: Dr. Velazquez on 02-17-2023 Hematocrit (Bld) [Volume fraction] 41.0 % 37-47 [facility] Laboratory - Chemistry and C hemistry - challengeOrdered By: Dr. Velazquez on 02-17-2023 ALP [Catalytic activity/Vol] 93 U/L 45-117 [facility] ALT [Catalytic activity/Vol] 23 U/L 13-56 [facility] CO2 [Moles/Vol] 24.0 mmol/L 21.0-32.0 [facility] Cobalamin (Vitamin B12) [Mass/Vol] 412 pg/mL 211-911 [facility] Free T4 [Mass/Vol] 0.89 ng/dL 0.76-1.46 [facility] Globulin (S) [Mass/Vol] 4.2 g/dL 2.2-4.2 [facility] Urea nitrogen/Creatinine [Mass ratio] 18.2 mg/mg 10-20 [facility] Laboratory - Hematology and Cell countsOrdered By: Dr. Velazquez on 02-17-2023 Erythrocyte distribution width (RBC) [Entitic vol] 43.2 fL 35.1-43.9 [facility] Erythrocyte distribution width (RBC) [Ratio] 13.0 % 11.6-14.6 [facility] Immature granulocytes/100 WBC (Bld) 0.400 % 0.0-0.9 [facility] Comment on above: IG% - Immature Granu locytes (promyelocytes, myelocytes and metamyelocytes) > 1% indicates that a LEFT SHIFT is Present. MCH (RBC) [Entitic mass] 28.8 pg 27.0-32.0 [facility] Nucleated RBC/100 WBC (Bld) [Ratio] 0 % 0-5 [facility] MCHC Auto (RBC) [Mass/Vol]Or dered By: Dr. Velazquez on 02-17-2023 MCHC (RBC) [Mass/Vol] 31.7 g/dL 32-[address] [facility] No Panel InformationOrdered By: Dr. Velazquez on 02-17-2023 Dehydroepiandrosterone Sulfate 26.6 ug/dL 41.2-243.7 [facility] Comment on above: Performed at: [address] [id number] Director: Angel Campos PhD, Phone: [phone] Estimated GFR (MDRD) Amer 96 mL/min >60 [facility] Comment on above: GFR Calc Estimated GFR (MDRD) Non-Af Amer 79 mL/min >60 [facility] Comment on above: Non- GFR Calc Follicle Stimulating Hormone 13.3 mIU/mL [facility] Comment on above: NORMAL REFERENCE RAN GES FEMALE FOLLICULAR 2.3 - 12.6 mIU/mL MID-CYCLE PEAK 5.2 - 17.5 mIU/mL LUTEAL 1.7 - 12.9 mIU/mL POST-MENOPAUSAL ON MHT 5.9 - 72.8 mIU/mL NOT ON MHT 12.7 - 132.2 mlU/mL MALE 0.7 - 10.8 mIU/mL Free Triiodothyronine (T3) pg/dL 2.5 pg/mL 2.18-3.98 [facility] Luteinizing Hormone 5.6 mIU/mL [facility] Comment on above: NORMAL REFERENCE RAN [facility] FEMALE FOLLICULAR 1.9 - 26.2 mIU/mL MID-CYCLE PEAK 22.8 - 76.1 mIU/mL LUTEAL 0.6 - 16.6 mIU/mL POST-MENOPAUSAL ON MHT 1.1 - 52.4 mIU/mL NOT ON MHT 8.6 - 61.8 mIU/mL MALE 1.2 - 10.6 mIU/mL Thyroid Stimulating Hormone (TSH) 1.70 uIU/mL 0.358-3.74 [facility] Vitamin D 25-Hydroxy 33.0 ng/mL [facility] Comment on above: Vitamin D 25(OH) Sta tus Range Deficiency <20 ng/mL (50nmol/L) Insufficiency 20 - 30 ng/mL (50 - 75 nmol/L) Sufficiency 30 - 100 ng/mL (75 - 250 nmol/L) Toxicity >100 ng/mL (>250 nmol/L) Platelets bldOrdered By: Dr. Velazquez on 02-17-2023 Platelets (Bld) [#/Vol] 283 10*3/uL 150-450 [facility] Serum or plasma albumin jamil urement (mass/volume)Ordered By: Dr. Velazquez on 02-17-2023 Albumin [Mass/Vol] 3.5 g/dL 3.2-5.0 [facility] Serum or plasma albumin/glob ulin mass ratioOrdered By: Dr. Velazquez on 02-17-2023 Albumin/Globulin [Mass ratio] 0.8 {ratio} 0.9-2.4 [facility] Serum or plasma calcium jamil urement (mass/volume)Ordered By: Dr. Velazquez on 02-17-2023 Calcium [Mass/Vol] 8.9 mg/dL 8.5-10.1 [facility] Serum or plasma cholesterol in HDL measurement (mass/volume)Ordered By: Dr. Velazquez on 02-17-2023 Cholesterol in HDL [Mass/Vol] 55 mg/dL >40 [facility] Comment on above: The drugs N-Acetylcy steine and Metamizole may falsely depress this assay. Reference Range HDL <40 mg/dL Low HDL Cholesterol HDL >or= 60 mg/dL High HDL Cholesterol Serum or plasma cholesterol in VLDL measurement (mass/volume)Ordered By: Dr. Velazquez on 02-17-2023 Cholesterol in VLDL [Mass/Vol] 25 mg/dL 5-40 [facility] Serum or plasma cortisol satnam surement (mass/volume)Ordered By: Dr. Velazquez on 02-17-2023 Cortisol [Mass/Vol] 24.40 ug/dL 3.44-22.45 [facility] Comment on above: Adult (AM) 5.27 - 22 .45 ug/dL Adult (PM) 3.44 - 16.76 ug/dLPlease note revised CORTISOL reference range effective 2019. Serum or plasma creatinine m easurement (mass/volume)Ordered By: Dr. Velazquez on 02-17-2023 Creatinine [Mass/Vol] 0.82 mg/dL 0.55-1.[address] [facility] Comment on above: The validity of the calculated GFR & GFRAA in patients over 70 years has not been determined. Clinical correlation is essential. Serum or plasma estradiol (E 2) measurement (mass/volume)Ordered By: Dr. Velazquez on 02-17-2023 E2 [Mass/Vol] 48.1 pg/mL [facility] Comment on above: NORMAL REFERENCE RAN GES [...] Cholesterol in LDL [Mass/Vol] 146 mg/dL 0-130 [facility] Serum or plasma urea nitroge n measurement (mass/volume)Ordered By: Dr. Velazquez on 02-17-2023 Urea nitrogen [Mass/Vol] 15 mg/dL 7-18 [facility] Thin prep Papanicolaou smear with manual screeningOrdered By: Dr. Velazquez on 02-17-2023 Thin prep Papanicolaou smear with manual screening 18 U/L 15-37 [facility] Thin prep Papanicolaou smear with manual screening 7 5-15 [facility] Whole blood hemoglobin A1c/t otal hemoglobin ratio (mass fraction)Ordered By: Dr. Velazquez on 02-17-2023 HbA1c (Bld) [Mass fraction] 5.3 % 3.8-5.6 [facility] Comment on above: Normal < 5.7 % Predi abetic 5.7 - 6.4 % Diabetic >or= 6.5 % Please note range changes. HCG QUAL UR B/Oon 08-05-2022 status Negative neg - pos Venessa lopez [facility] Quality Check Yes [facility] OBSOLETEon 07-12-2021 OBSOLETE Refill (RHBATH) MENDOZA JOHNSON ([id number]) 1975 F Date Time Provider Department 07/12/21 ELIANE MO RHBKUSH During your visit today, we recorded the following information about you: Kvng Duron MA 07/13/2021 11:48 AM Signed Pharmacy faxed requesting the following refill. Pending Prescriptions Disp Refills ERGOCALCIFEROL (VITAMIN D2) 1,250 MCG (50,000 UNIT) CAPSULE 12 capsule 3 Sig: TAKE 1 CAPSULE BY MOUTH ONE TIME A WEEK. SAMMY: Yes Patient last appointment: 06/19/2021 Next Appointment: 06/21/2022found Patient Phone numbers: [phone] (home) Request is for script(s) to be [...] Status:Closed by ELIANE MO on 07/13/21 Normal [facility] BLOOD TB SCREEN, INCUBATEDon 04-28-2021 M. tuberculosis tuberculin stim IFN-g Ql (Bld) Negative Normal NEGAT [facility] Comment on above: Order Comment: Speci men Type: BLOOD SPECIMEN Performed By: #### 4 537-7 #### [facility] CLIA [id number] [address] [place] [address] MITOGEN MINUS NIL >10 Normal [facility] Comment on above: Order Comment: Speci men Type: BLOOD SPECIMEN Performed By: #### 4 537-7 #### [facility] CLIA [id number] [address] [place] [address] TB INTERPRETATION No evidence of current or previous infection with Mycobacterium tuberculosis. Normal [facility] Comment on above: Order Comment: Speci men Type: BLOOD SPECIMEN Performed By: #### 4 537-7 #### [facility] CLIA [id number] [address] [place] [address] TB NIL 0.07 IU/mL Normal [facility] Comment on above: Order Comment: Speci men Type: BLOOD SPECIMEN Performed By: #### 4 537-7 #### [facility] CLIA [id number] [address] [place] [address] TB1 AG MINUS NIL 0.00 IU/mL Normal <0.35 [facility] Comment on above: Order Comment: Speci men Type: BLOOD SPECIMEN Performed By: #### 4 537-7 #### [facility] CLIA [id number] [address] [place] [address] TB2 AG MINUS NIL 0.00 IU/mL Normal <0.35 [facility] Comment on above: Order Comment: Speci men Type: BLOOD SPECIMEN Performed By: #### 4 537-7 #### [facility] CLIA [id number] [address] [place] [address] CBC W Auto Differential pane l (Bld)on 04-28-2021 Basophils (Bld) [#/Vol] 0.05 10*3/uL Normal <0.11 [facility] Comment on above: Order Comment: Speci men Type: BLOOD SPECIMEN Performed By: #### 4 537-7 #### [facility] CLIA [id number] [address] [place] [address] Basophils/100 WBC (Bld) 0.5 % Normal [facility] Comment on above: Order Comment: Speci men Type: BLOOD SPECIMEN Performed By: #### 4 537-7 #### [facility] CLIA [id number] [address] [place] [address] Differential cell count method Nom (Bld) Auto Normal [facility] Comment on above: Order Comment: Speci men Type: BLOOD SPECIMEN Performed By: #### 4 537-7 #### [facility] CLIA [id number] [address] [place] [address] Eosinophils (Bld) [#/Vol] 0.28 10*3/uL Normal <0.46 [facility] Comment on above: Order Comment: Speci men Type: BLOOD SPECIMEN Performed By: #### 4 537-7 #### [facility] CLIA [id number] [address] [place] [address] Eosinophils/100 WBC (Bld) 2.9 % Normal [facility] Comment on above: Order Comment: Speci men Type: BLOOD SPECIMEN Performed By: #### 4 537-7 #### [facility] CLIA [id number] [address] [place] [address] Erythrocyte distribution width (RBC) [Ratio] 13.2 % Normal 11.5-15.0 [facility] Comment on above: Order Comment: Speci men Type: BLOOD SPECIMEN Performed By: #### 4 537-7 #### [facility] CLIA [id number] [address] [place] [address] Hematocrit (Bld) [Volume fraction] 41.7 % Normal 36.0-46.0 [facility] Comment on above: Order Comment: Speci men Type: BLOOD SPECIMEN Performed By: #### 4 537-7 #### [facility] CLIA [id number] [address] [place] [address] Hemoglobin (Bld) [Mass/Vol] 12.9 g/dL Normal 11.5-15.5 [facility] Comment on above: Order Comment: Speci men Type: BLOOD SPECIMEN Performed By: #### 4 537-7 #### [facility] CLIA [id number] [address] [place] [address] IMMATURE GRAN % 0.5 % Normal [facility] Comment on above: Order Comment: Speci men Type: BLOOD SPECIMEN Performed By: #### 4 537-7 #### [facility] CLIA [id number] [address] [place] [address] IMMATURE GRAN ABS 0.05 k/uL Normal <0.10 [facility] Comment on above: Order Comment: Speci men Type: BLOOD SPECIMEN Performed By: #### 4 537-7 #### [facility] CLIA [id number] [address] [place] [address] Lymphocytes (Bld) [#/Vol] 2.26 10*3/uL Normal 1.00-4.0 0 [facility] Comment on above: Order Comment: Speci men Type: BLOOD SPECIMEN Performed By: #### 4 537-7 #### [facility] CLIA [id number] [address] [place] [address] Lymphocytes/100 WBC (Bld) 23.7 % Normal [facility] Comment on above: Order Comment: Speci men Type: BLOOD SPECIMEN Performed By: #### 4 537-7 #### [facility] CLIA [id number] [address] [place] [address] MCH (RBC) [Entitic mass] 27.8 pg Normal 26.0-34.0 [facility] Comment on above: Order Comment: Speci men Type: BLOOD SPECIMEN Performed By: #### 4 537-7 #### [facility] CLIA [id number] [address] [place] [address] MCHC (RBC) [Mass/Vol] 30.9 g/dL Normal 30.5-36.0 [facility] Comment on above: Order Comment: Speci men Type: BLOOD SPECIMEN Performed By: #### 4 537-7 #### [facility] CLIA [id number] [address] [place] [address] MCV (RBC) [Entitic vol] 89.9 fL Normal 80.0-100.0 [facility] Comment on above: Order Comment: Speci men Type: BLOOD SPECIMEN Performed By: #### 4 537-7 #### [facility] CLIA [id number] [address] [place] [address] Monocytes (Bld) [#/Vol] 0.62 10*3/uL Normal <0.87 [facility] Comment on above: Order Comment: Speci men Type: BLOOD SPECIMEN Performed By: #### 4 537-7 #### [facility] CLIA [id number] [address] [place] [address] Monocytes/100 WBC (Bld) 6.5 % Normal [facility] Comment on above: Order Comment: Speci men Type: BLOOD SPECIMEN Performed By: #### 4 537-7 #### [facility] CLIA [id number] [address] [place] [address] Neutrophils (Bld) [#/Vol] 6.26 10*3/uL Normal 1.45-7.5 0 [facility] Comment on above: Order Comment: Speci men Type: BLOOD SPECIMEN Performed By: #### 4 537-7 #### [facility] CLIA [id number] [address] [place] [address] Neutrophils/100 WBC (Bld) 65.9 % Normal [facility] Comment on above: Order Comment: Speci men Type: BLOOD SPECIMEN Performed By: #### 4 537-7 #### [facility] CLIA [id number] [address] [place] [address] Nucleated RBC (Bld) [#/Vol] 10*3/uL Normal <0.01 [facility] Comment on above: Order Comment: Speci men Type: BLOOD SPECIMEN Performed By: #### 4 537-7 #### [facility] CLIA [id number] [address] [place] [address] Nucleated RBC/100 WBC (Bld) [Ratio] 0.0 /100 WBC Normal 0.0 [facility] Comment on above: Order Comment: Speci men Type: BLOOD SPECIMEN Performed By: #### 4 537-7 #### [facility] CLIA [id number] [address] [place] [address] Platelet mean volume (Bld) [Entitic vol] 12.3 fL Normal 9.0-12.7 [facility] Comment on above: Order Comment: Speci men Type: BLOOD SPECIMEN Performed By: #### 4 537-7 #### [facility] CLIA [id number] [address] [place] [address] Platelets (Bld) [#/Vol] 285 10*3/uL Normal 150-400 [facility] Comment on above: Order Comment: Speci men Type: BLOOD SPECIMEN Performed By: #### 4 537-7 #### [facility] CLIA [id number] [address] [place] [address] RBC (Bld) [#/Vol] 4.64 10*6/uL Normal 3.90-5.20 [facility] Comment on above: Order Comment: Speci men Type: BLOOD SPECIMEN Performed By: #### 4 537-7 #### [facility] CLIA [id number] [address] [place] [address] WBC (Bld) [#/Vol] 9.52 10*3/uL Normal 3.70-11.00 [facility] Comment on above: Order Comment: Speci men Type: BLOOD SPECIMEN Performed By: #### 4 537-7 #### [facility] CLIA [id number] [address] [place] [address] CCP ANTIBODY IGGon 1 Cyclic citrullinated peptide IgG Qn <15 Normal <20 [facility] Comment on above: Order Comment: Speci men Type: BLOOD SPECIMEN Result Comment: < 20 units: Negative 20-39 units: Weak Positive 40-59 units: Moderate Positive > 60 units: Strong Positive The following results were obtained with the [employer] QUANTA Lite CCP3 IgG SAMANTHA. Anti-CCP values obtained with different manufacturers' assay methods may not be used interchangeably. The magnitude of the reported IgG levels cannot be correlated to an endpoint titer. Performed By: #### V ITD #### [facility] CLIA [id number] [address] [place] [address] CK CREATINE KINASEon 021 CK [Catalytic activity/Vol] 73 U/L Normal 42-196 [facility] Comment on above: Order Comment: Speci men Type: BLOOD SPECIMEN Performed By: #### 4 537-7 #### [facility] CLIA [id number] [address] [place] [address] CNOVon 04-28-2021 CNOV Office Visit (RHBATH ) MENDOZA JOHNSON ([id number]) 1975 F Date Time Provider Department 04/28/21 10:20 AM ELIANE MO RHBKUSH During your visit today, we recorded the [...] Laterality Date - COLONOSCOP W/ OR W/O [facility] SPEC 06/07/2014 repeat 10 yrs - [...] Tobacco Us (more content not included)... Normal [facility] CRP SerPl-mCncon 04-28-2021 CRP [Mass/Vol] 1.3 mg/dL High <0.9 [facility] Comment on above: Order Comment: Speci men Type: BLOOD SPECIMEN Performed By: #### 4 537-7 #### [facility] CLIA [id number] [address] [place] [address] Comprehensive metabolic 2000 panelon 04-28-2021 Albumin [Mass/Vol] 4.5 g/dL Normal 3.9-4.9 [facility] Comment on above: Order Comment: Speci men Type: BLOOD SPECIMEN Performed By: #### 4 537-7 #### [facility] CLIA [id number] [address] [place] [address] ALP [Catalytic activity/Vol] 118 U/L Normal 34-123 [facility] Comment on above: Order Comment: Speci men Type: BLOOD SPECIMEN Performed By: #### 4 537-7 #### [facility] CLIA [id number] [address] [place] [address] ALT With P-5'-P [Catalytic activity/Vol] 17 U/L Normal 7-38 [facility] Comment on above: Order Comment: Speci men Type: BLOOD SPECIMEN Performed By: #### 4 537-7 #### [facility] CLIA [id number] [address] [place] [address] Anion gap [Moles/Vol] 12 mmol/L Normal 9-18 [facility] Comment on above: Order Comment: Speci men Type: BLOOD SPECIMEN Performed By: #### 4 537-7 #### [facility] CLIA [id number] [address] [place] [address] AST With P-5'-P [Catalytic activity/Vol] 27 U/L Normal 13-35 [facility] Comment on above: Order Comment: Speci men Type: BLOOD SPECIMEN Performed By: #### 4 537-7 #### [facility] CLIA [id number] [address] [place] [address] Bilirubin [Mass/Vol] 0.5 mg/dL Normal 0.2-1.3 [facility] Comment on above: Order Comment: Speci men Type: BLOOD SPECIMEN Performed By: #### 4 537-7 #### [facility] CLIA [id number] [address] [place] [address] Calcium [Mass/Vol] 9.5 mg/dL Normal 8.5-10.2 [facility] Comment on above: Order Comment: Speci men Type: BLOOD SPECIMEN Performed By: #### 4 537-7 #### [facility] CLIA [id number] [address] [place] [address] Chloride [Moles/Vol] 101 mmol/L Normal 97-105 [facility] Comment on above: Order Comment: Speci men Type: BLOOD SPECIMEN Performed By: #### 4 537-7 #### [facility] CLIA [id number] [address] [place] [address] CO2 [Moles/Vol] 26 mmol/L Normal 22-30 [facility] Comment on above: Order Comment: Speci men Type: BLOOD SPECIMEN Performed By: #### 4 537-7 #### [facility] CLIA [id number] [address] [place] [address] Creatinine [Mass/Vol] 0.73 mg/dL Normal 0.58-0.96 [facility] Comment on above: Order Comment: Speci men Type: BLOOD SPECIMEN Performed By: #### 4 537-7 #### [facility] CLIA [id number] [address] [place] [address] GFR/1.73 sq M.predicted MDRD (S/P/Bld) [Vol rate/Area] mL/min/{1.73_m2} Normal [facility] Comment on above: Order Comment: Speci men [...] GFR. Performed By: #### 4 537-7 #### [facility] CLIA [id number] [address] [place] [address] Glucose [Mass/Vol] 90 mg/dL Normal 74-99 [facility] Comment on above: Order Comment: Speci men Type: BLOOD SPECIMEN Result Comment: The [place] [employer] (ADA) provides guidance for cutoff [...] Standards of Medical Care in Diabetes 2016, [place] [employer]. Diabetes Care. 2016.39(Suppl 1). Performed By: #### 4 537-7 #### [facility] CLIA [id number] [address] [place] [address] Potassium [Moles/Vol] 4.2 mmol/L Normal 3.7-5.1 [facility] Comment on above: Order Comment: Speci men Type: BLOOD SPECIMEN Performed By: #### 4 537-7 #### [facility] CLIA [id number] [address] [place] [address] Protein [Mass/Vol] 7.6 g/dL Normal 6.3-8.0 [facility] Comment on above: Order Comment: Speci men Type: BLOOD SPECIMEN Performed By: #### 4 537-7 #### [facility] CLIA [id number] [address] [place] [address] Sodium [Moles/Vol] 139 mmol/L Normal 136-144 [facility] Comment on above: Order Comment: Speci men Type: BLOOD SPECIMEN Performed By: #### 4 537-7 #### [facility] CLIA [id number] [address] [place] [address] Urea nitrogen [Mass/Vol] 13 mg/dL Normal 7-21 [facility] Comment on above: Order Comment: Speci men Type: BLOOD SPECIMEN Performed By: #### 4 537-7 #### [facility] CLIA [id number] [address] [place] [address] ESR Westergren method (Bld) [Velocity]on 04-28-2021 ESR (Bld) [Velocity] 21 mm/h High 0-20 [facility] Comment on above: Order Comment: Speci men Type: BLOOD SPECIMEN Performed By: #### 4 537-7 #### [facility] CLIA [id number] [address] [place] [address] FERRITIN BLDon 04-28-2021 Ferritin [Mass/Vol] 38.1 ng/mL Normal 14.7-205.1 [facility] Comment on above: Order Comment: Speci men Type: BLOOD SPECIMEN Performed By: #### F ERR #### [facility] CLIA [id number] [address] [place] [address] HBV surface Ab IA Ql (S)on 0 04-28-2021 HBV surface Ag Ql (S) Negative Normal Negative [facility] Comment on above: Order Comment: Speci men Type: BLOOD SPECIMEN Performed By: #### 4 537-7 #### [facility] CLIA [id number] [address] [place] [address] HBV surface Ab Ser-aCncon HBV surface Ab Qn (S) <3.10 Normal <10.00 [facility] Comment on above: Order Comment: Speci men Type: BLOOD SPECIMEN Result Comment: Isis ent is considered not to have protective immunity to HBV infection. Performed By: #### V ITD #### [facility] CLIA [id number] [address] [place] [address] HCV Ab Ser Qlon 04-28-2021 HCV Ab Ql (S) Negative Normal Negative [facility] Comment on above: Order Comment: Speci men Type: BLOOD SPECIMEN Performed By: #### 4 537-7 #### [facility] CLIA [id number] [address] [place] [address] HEP B CORE AB TOTALon 2020 HBV core Ab Ql (S) Negative Normal NEGAT [facility] Comment on above: Order Comment: Speci men Type: BLOOD SPECIMEN Performed By: #### V ITD #### [facility] CLIA [id number] [address] [place] [id number] HLA-B27 PCRon 04-28-2021 HLA-B27 DNA RESULT Negative Normal [facility] Comment on above: Order Comment: Speci men [...] developed and its performance characteristics determined by [employer]. The test has not been cleared or approved by the [place] FDA. However, FDA approval was not necessary since this lab is certified under CLIA for high complexity testing. Test performed by: [employer], [address] [address] CLIA [id number] Performed By: #### B 27PCR #### [facility] CLIA [id number] [id number] [address] [place] IRON + TIBCon 04-28-2021 Iron [Mass/Vol] 69 ug/dL Normal 41-186 [facility] Comment on above: Order Comment: Speci men Type: BLOOD SPECIMEN Performed By: #### 4 537-7 #### [facility] CLIA [id number] [address] [place] [address] Iron binding capacity [Mass/Vol] 358 ug/dL Normal 232-386 [facility] Comment on above: Order Comment: Speci men Type: BLOOD SPECIMEN Performed By: #### 4 537-7 #### [facility] CLIA [id number] [address] [place] [address] Iron saturation [Mass fraction] 19 % Normal 15-57 [facility] Comment on above: Order Comment: Speci men Type: BLOOD SPECIMEN Performed By: #### 4 537-7 #### [facility] CLIA [id number] [address] [place] [address] RHEUMATOID FACTOR BLon 04-28 Rheumatoid factor Qn [IU]/mL Normal <16 [facility] Comment on above: Order Comment: Speci men Type: BLOOD SPECIMEN Performed By: #### V ITD #### [facility] CLIA [id number] [address] [place] [address] UA WITH CULTURE IF INDICATED on 04-28-2021 [...] during collection. Recollect if clinically indicated. Abnormal [facility] Comment on above: Order Comment: Speci men Type: BLOOD SPECIMEN Performed By: #### V ITD #### [facility] CLIA [id number] [address] [place] [address] VITAMIN D 25 HYDROXYon 04-28 25-hydroxyvitamin D3 [Mass/Vol] 25.1 ng/mL Low 30.0-100.0 [facility] Comment on above: Order Comment: Speci men Type: BLOOD SPECIMEN Result Comment: Clas sification of 25 [place] Vitamin D status: Deficiency: < 20 ng/ml. Insufficientcy: 20-30 ng/ml. Sufficiency: 30-100 ng/ml. Performed By: #### V ITD #### [facility] CLIA [id number] [address] [place] [address] XR FOOT 3V AP/LAT/OBL LTon 0 04-28-2021 [...] Bilateral calcaneal enthesopathy. Otherwise negative bilateral feet. Funeral Home Director: [facility] Transcribe Date/Time: Apr 28 2021 4:08P Dictated by : LELAND HANEY MD This examination was interpreted and the report reviewed and electronically signed by: LELAND HANEY MD on Apr 28 2021 4:12PM EST [id number] N Normal [facility] XR FOOT 3V AP/LAT/OBL RTon 0 04-28-2021 [...] Bilateral calcaneal enthesopathy. Otherwise negative bilateral feet. 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 Funeral Home Director: JB Transcribe Date/Time: Apr 28 2021 4:03P Dictated by : LELAND HANEY MD This examination was interpreted and the report reviewed and electronically signed by: LELAND HANEY MD on Apr 28 2021 4:07PM EST [id number] N Normal [facility] XR LUMBAR 2V AP/LATon 2020 XR LUMBAR 2V AP/LAT * * *Final Report* * * DATE OF EXAM: Apr 28 2021 11:37AM AWX [id number] - XR LUMBAR 2V AP/LAT / PROCEDURE REASON: Pain in joint, multiple sites * * * * Physician Interpretation * * * * EXAM TITLE: XR LUMBAR 2V AP/LAT, XR SI JTS 2V AP PELV/BUTETRFIELD DATE: 04/28/2021 COMPARISON: 11/22/2020 CLINICAL INDICATION/HISTORY: Low back pain TECHNIQUE: AP and lateral views of the lumbar spine are presented. AP and Butterfield views of the bilateral sacroiliac joints. RESULT: Lumbar spine: There are five mtk-[id number]-[id number] lumbar vertebra. No fracture or subluxations are [...] acute abnormality. Sacroiliac joints: Within normal limits. Funeral Home Director: [employer] Transcribe Date/Time: Apr 29 2021 1:32P Dictated by : LELAND HANEY MD This examination was interpreted and the report reviewed and electronically signed by: LELAND HANEY MD on Apr 29 2021 1:40PM EST [id number] N Normal [facility] XR SI JTS 2V AP PELV/FERGUSO Non [...] joints. RESULT: Lumbar spine: There are five ffo-[id number]-[id number] lumbar vertebra. No fracture or subluxations are [...] acute abnormality. Sacroiliac joints: Within normal limits. Funeral Home Director: [facility] Transcribe Date/Time: Apr 29 2021 1:32P Dictated by : LELAND HANEY MD This examination was interpreted and the report reviewed and electronically signed by: LELAND HANEY MD on Apr 29 2021 1:40PM EST [id number] N Normal [facility] XR Lumbar spine 3 Viewson IMPRESSION: DEGENERATIVE CHANGE DESCRIBED Funeral Home Director: [facility] Transcribe Date/Time: Nov 22 2020 11:44A Dictated by : JESUS ADAMES MD This examination was interpreted and the report reviewed and electronically signed by: JESUS ADAMES MD on Nov 22 2020 11:46AM [facility] DIVISION OF RADIOLOGY * * *Final Report* [...] joints appear unremarkable DIVISION OF RADIOLOGY Provider, [facility] - 11/22/2020 * * *Final Report* * [...] appear unremarkable IMPRESSION IMPRESSION: DEGENERATIVE CHANGE DESCRIBED [employer]eral Home Director: JB Transcribe Date/Time: Nov 22 2020 11:44A Dictated by : JESUS ADAMES MD This examination was interpreted and the report reviewed and electronically signed by: JESUS ADAMES MD on Nov 22 2020 11:46AM EST [facility] Radiology Study observation (narrative) Venessa lopez [facility] XR Lumbar spine 3 ViewsOrder ed By: [facility] Provider on 11-22-2020 [facility] Vital Signs Date Time Vital Sign Value Performing Clinician Facility 01-07-2025 06:54-0400 Body height 168.[address] Trent Velazquez DO Work Phone: [facility] 01-07-2025 06:54-0400 Body mass index (BMI) [Ratio] 36.6 kg/m2 Dr. Trent Velazquez DO Work Phone: [facility] 01-07-2025 06:54-0400 Body temperature 98.2 [degF] Dr. Trent Velazquez DO Work Phone: [facility] 01-07-2025 06:54-0400 Body weight 104.[address] Trent Velazquez DO Work Phone: [facility] 01-07-2025 06:54-0400 Diastolic blood pressure 80 mm[Hg] Dr. Trent Velazquez DO Work Phone: [facility] 01-07-2025 06:54-0400 Heart rate 72 /min Dr. Trent Velazquez DO Work Phone: [facility] 01-07-2025 06:54-0400 SaO2% (BldA) [Mass fraction] 97 % Dr. Trent Velazquez DO Work Phone: [facility] 01-07-2025 06:54-0400 Systolic blood pressure 120 mm[Hg] Dr. Trent Velazquez DO Work Phone: [facility] 02-08-2024 10:42-0400 Body height 167.6 cm Benjamin Gagnon MD Work Phone: [facility] 02-08-2024 10:42-0400 Body mass index (BMI) [Ratio] 34.86 kg/m2 Benjamin Gagnon MD Work Phone: [facility] 02-08-2024 10:42-0400 Body weight 97.98 kg Benjamin Gagnon MD Work Phone: [facility] 08-24-2023 23:09-0500 Diastolic blood pressure 90 mm[Hg] [facility] 08-24-2023 23:09-0500 Heart rate 78 /min [facility] 08-24-2023 23:09-0500 Respiratory rate 16 /min [facility] 08-24-2023 23:09-0500 SaO2% (BldA) [Mass fraction] 98 % [facility] 08-24-2023 23:09-0500 Systolic blood pressure 145 mm[Hg] [facility] 08-24-2023 20:44-0500 Body height 167.64 cm [facility] 08-24-2023 20:44-0500 Body mass index (BMI) [Ratio] 36.6 kg/m2 [facility] 08-24-2023 20:44-0500 Body temperature 98.6 [degF] [facility] 08-24-2023 20:44-0500 Body weight 102.96 kg [facility] 04-28-2023 09:23-0400 Diastolic blood pressure 98 mm[Hg] [facility] 04-28-2023 09:23-0400 Heart rate 72 /min [facility] 04-28-2023 09:23-0400 Respiratory rate 14 /min [facility] 04-28-2023 09:23-0400 SaO2% (BldA) [Mass fraction] 97 % [facility] 04-28-2023 09:23-0400 Systolic blood pressure 138 mm[Hg] [facility] 04-28-2023 06:39-0400 Body height 167.64 cm [facility] 04-28-2023 06:39-0400 Body mass index (BMI) [Ratio] 35.6 kg/m2 [facility] 04-28-2023 06:39-0400 Body temperature 97.8 [degF] [facility] 04-28-2023 06:39-0400 Body weight 100.24 kg [facility] 01-27-2023 17:16-0400 Body weight 99.34 kg Dania Church APRN.CNP Work Phone: [facility] 01-27-2023 17:16-0400 Diastolic blood pressure 76 mm[Hg] Dania Church EMERGENCY REGISTRAR.DIRECTOR LIFE SALES Work Phone: [facility] 01-27-2023 17:16-0400 Heart rate 84 /min Dania Church EMERGENCY REGISTRAR.DIRECTOR LIFE SALES Work Phone: [facility] 01-27-2023 17:16-0400 Respiratory rate 14 /min Dania Church EMERGENCY REGISTRAR.DIRECTOR LIFE SALES Work Phone: [facility] 01-27-2023 17:16-0400 Systolic blood pressure 122 mm[Hg] Dania Church EMERGENCY REGISTRAR.DIRECTOR LIFE SALES Work Phone: [facility] 09-09-2022 14:30-0500 Body weight 94.8 kg Lucina Wang APRN.DIRECTOR LIFE SALES Work Phone: [facility] 09-09-2022 14:30-0500 Diastolic blood pressure 78 mm[Hg] Lucina Wang APRN.DIRECTOR LIFE SALES Work Phone: [facility] 09-09-2022 14:30-0500 Systolic blood pressure 126 mm[Hg] Lucina Wang APRN.DIRECTOR LIFE SAL[employer] Work Phone: [facility] 08-25-2022 13:02-0500 Diastolic blood pressure 87 mm[Hg] Cyn Berry PA-C Work Phone: [facility] 08-25-2022 13:02-0500 Heart rate 65 /min Cyn BAI-C Work Phone: [facility] 08-25-2022 13:02-0500 Systolic blood pressure 131 mm[Hg] Cyn Berry PA-C Work Phone: [facility] 08-25-2022 12:33-0500 Body temperature 97.7 [degF] Cyn Berry PA-C Work Phone: [facility] 08-25-2022 12:33-0500 Body weight 95.71 kg Cyn BAI-C Work Phone: [facility] 08-25-2022 12:33-0500 Respiratory rate 18 /min Cyn Berry PA-C Work Phone: [facility] 08-07-2022 12:01-0500 Body temperature 97.59 [degF] Bev Praisler-Wood EMERGENCY REGISTRAR.DIRECTOR LIFE SALES Work Phone: [facility] 08-07-2022 12:01-0500 Body weight 94.8 kg Bev Praisler-Wood EMERGENCY REGISTRAR.DIRECTOR LIFE SALES Work Phone: [facility] 08-07-2022 12:01-0500 Diastolic blood pressure 84 mm[Hg] Bev Praisler-Wood EMERGENCY REGISTRAR.DIRECTOR LIFE SALES Work Phone: [facility] 08-07-2022 12:01-0500 Heart rate 70 /min Bev Praisler-Wood EMERGENCY REGISTRAR.DIRECTOR LIFE SALES Work Phone: [facility] 08-07-2022 12:01-0500 Respiratory rate 18 /min Bev Praisler-Wood EMERGENCY REGISTRAR.DIRECTOR LIFE SALES Work Phone: [facility] 08-07-2022 12:01-0500 SaO2% (BldA) [Mass fraction] 99 % Bev Praisler-Wood EMERGENCY REGISTRAR.DIRECTOR LIFE SALES Work Phone: [facility] 08-07-2022 12:01-0500 Systolic blood pressure 130 mm[Hg] Bev Praisler-Wood EMERGENCY REGISTRAR.DIRECTOR LIFE SALES Work Phone: [facility] 08-05-2022 09:03-0500 Body weight 94.98 kg Lucina Wang EMERGENCY REGISTRAR.DIRECTOR LIFE SALES Work Phone: [facility] 08-05-2022 09:03-0500 Diastolic blood pressure 82 mm[Hg] Lucina Wang EMERGENCY REGISTRAR.DIRECTOR LIFE SALES Work Phone: [facility] 08-05-2022 09:03-0500 Heart rate 85 /min Lucina Wang EMERGENCY REGISTRAR.DIRECTOR LIFE SALES Work Phone: [facility] 08-05-2022 09:03-0500 SaO2% (BldA) [Mass fraction] 98 % Lucina Wang EMERGENCY REGISTRAR.DIRECTOR LIFE SALES Work Phone: [facility] 08-05-2022 09:03-0500 Systolic blood pressure 124 mm[Hg] Lucina Wang APRN.DIRECTOR LIFE SALES Work Phone: [facility] 07-27-2022 14:07-0400 Body height 168 cm Cyn Berry PA-C Work Phone: [facility] 07-27-2022 14:07-0400 Body temperature 98.1 [degF] Cyn Berry PA-C Work Phone: [facility] 07-27-2022 14:07-0400 Body weight 94.8 kg Cyn Berry PA-C Work Phone: [facility] 07-27-2022 14:07-0400 Diastolic blood pressure 90 mm[Hg] Cyn Berry PA-C Work Phone: [facility] 07-27-2022 14:07-0400 Heart rate 72 /min Cyn Berry PA-C Work Phone: [facility] 07-27-2022 14:07-0400 Respiratory rate 18 /min Cyn Berry PA-C Work Phone: [facility] 07-27-2022 14:07-0400 Systolic blood pressure 130 mm[Hg] Cyn Berry PA-C Work Phone: [facility] 04-20-2022 16:00-0400 Body height 167.6 cm Lucina Wang APRN.DIRECTOR LIFE SALES Work Phone: [facility] 04-20-2022 16:00-0400 Body weight 95.71 kg Lucina Wang APRN.DIRECTOR LIFE SALES Work Phone: [facility] 04-20-2022 16:00-0400 Diastolic blood pressure 98 mm[Hg] Lucina Wang APRN.DIRECTOR LIFE SALES Work Phone: [facility] 04-20-2022 16:00-0400 Systolic blood pressure 140 mm[Hg] Lucina Wang APRN.DIRECTOR LIFE SALES Work Phone: [facility] Encounters Encounter Date Encounter Type Care Provider Facility Start: 05-09-2025 ambulatory Axel [place] Facility :[facility] Start: 05-02-2025 End: 05-02-[address] Trent Velazquez DO Work Phone: -Laboratory Start: 05-02-2025 End: 05-02-2025 Patient encounter procedure Axel Leonel DO -Laboratory Work Phone: Start: 05-02-2025 End: 05-02-2025 ambulatory Axel Castaneda Facility:[facility] Start: 04-15-2025 End: 04-15-2025 Patient encounter procedure Axel Leonel DO -[facility] Work Phone: Start: 04-15-2025 End: 04-15-[address] Trent Velazquez DO Work Phone: -[facility] Start: 01-07-2025 End: 01-07-2025 Patient encounter procedure Rojelio [place] -[facility] Work Phone: Start: 01-07-2025 End: 01-07-2025 ambulatory Trent Labor Facility:[facility] Start: 12-06-2024 ambulatory Trent Labor Facility:[facility] Start: 08-02-2024 End: 08-02-2024 ambulatory Trent Labor Facility:[facility] Start: 07-19-2024 ambulatory Trent Labor Facility:[facility] Start: 06-14-2024 End: 06-14-2024 ambulatory Eliz O'Honorio PT [facility] Comment on above: Calcific tendinitis of right shoulder (Primary Dx) Start: 06-01-2024 End: 06-01-2024 ambulatory Farrah Whiting FIELD CONSULTANT Work Phone: [facility] Comment on above: Calcific tendinitis of right shoulder (Primary Dx) Start: 05-22-2024 End: 05-22-2024 ambulatory Eliz O'Honorio PT [facility] Comment on above: Calcific tendinitis of right shoulder (Primary Dx) Start: 05-15-2024 End: 05-15-2024 ambulatory Eliz O'Honorio PT [facility] Comment on above: Calcific tendinitis of right shoulder (Primary Dx) Start: 05-08-2024 End: 05-08-2024 ambulatory Farrah Whiting FIELD CONSULTANT Work Phone: [facility] Comment on above: Calcific tendinitis of right shoulder (Primary Dx) Start: 05-01-2024 End: 05-01-2024 ambulatory Farrah Whiting FIELD CONSULTANT Work Phone: [facility] Comment on above: Calcific tendinitis of right shoulder (Primary Dx) Start: 05-01-2024 ambulatory [employer] [facility] Facility :[facility] Start: 04-10-2024 End: 04-10-2024 ambulatory Farrah Whiting FIELD CONSULTANT Work Phone: [facility] Comment on above: Calcific tendinitis of right shoulder (Primary Dx) Start: 04-04-2024 End: 04-05-2024 ambulatory Siobhan Patel PT, DPT [facility] Comment on above: Calcific tendinitis of right shoulder (Primary Dx) Start: 03-27-2024 End: 03-27-2024 ambulatory Eliz Sifuentes PT [facility] Comment on above: Calcific tendinitis of right shoulder (Primary Dx) Start: 03-09-2024 End: 03-09-2024 ambulatory [employer] [facility] Facility:[facility] Start: 03-09-2024 End: 03-09-2024 Patient encounter procedure Chey Plata DO Work Phone: Orthopaedics Comment on above: Calcific tendinitis of right shoulder (Primary Dx) Start: 02-28-2024 ambulatory Chey D Plata DO Work Phone: Orthopaedics Comment on above: RX Start: 02-23-2024 End: 02-23-2024 ambulatory [employer] [facility] Facility:[facility] Start: 02-23-2024 End: 02-23-2024 Subsequent hospital visit by physician Main A21 7 Work Phone: Radiology Comment on above: Calcific tendonitis [M65.20] Start: 02-22-2024 Telephone encounter Chey echeverria DO Work Phone: Orthopaedics Comment on above: Medication Question Start: 02-22-2024 End: 02-22-2024 ambulatory [employer] Facility:[facility] Start: 02-22-2024 End: 02-22-2024 Patient encounter procedure Chey Plata DO Work Phone: Orthopaedics Comment on above: Calcific tendinitis of right shoulder (Primary Dx) Start: 02-08-2024 Telephone encounter [facility] Provider Allegra vazquez Comment on above: Appointment with Dr. Plata or Dr. Fregoso Appointment Start: 02-08-2024 End: 02-08-2024 Patient encounter procedure Benjamin Gagnon MD Work Phone: Orthopaedics Comment on above: Calcific tendonitis (Primary Dx) Start: 02-08-2024 End: 02-08-2024 ambulatory [employer] [facility] Facility:[facility] Start: 02-08-2024 End: 02-08-2024 Subsequent hospital visit by physician Xr [facility] Comment on above: Pain [R52] Start: 02-06-2024 Orders Only Benjamin marie MD Work Phone: [facility] Comment on above: Pain (Primary Dx) Start: 12-22-2023 End: 12-22-2023 Subsequent hospital visit by physician [facility]r [facility] Work Phone: Radiology Comment on above: Acute cough [R05.1] Start: 12-22-2023 End: 12-22-2023 ambulatory [employer] [facility] Facility:[facility] Start: 08-24-2023 End: 08-24-2023 Emergency department patient visit [facility]-Emergency Department Work Phone: Start: 07-07-2023 End: 07-07-2023 ambulatory [employer] Facility:[facility] Start: 05-25-2023 ambulatory Yang bravo MD Work Phone: Internal Medicine [facility] Start: 04-28-2023 End: 04-28-2023 Emergency department patient visit [facility]Emergency Department Work Phone: Start: 03-10-2023 Refill Yang bravo MD Work Phone: [facility] Comment on above: Refill Request Start: 02-17-2023 End: 02-17-2023 ambulatory [facility] Work Phone: Start: 02-17-2023 End: 02-17-2023 Patient encounter procedure [facility]-Laboratory Start: 01-27-2023 End: 01-27-2023 Patient encounter procedure Dania Church APRN.DIRECTOR LIFE SALES Work Phone: [facility] Comment on above: Parotitis, acute (Pr imary Dx) Start: 10-18-2022 ambulatory Eliane díaz MD Work Phone: [facility] Comment on above: RX For Monthly Massa ge Start: 09-09-2022 End: 09-09-2022 Patient encounter procedure Lucina Wang APRN.DIRECTOR LIFE SALES Work Phone: OB/Gynecology Comment on above: IUD check up (Primar y Dx) Start: 08-25-2022 End: 08-25-2022 Patient encounter procedure Cyn Berry PA-C Work Phone: [facility] Comment on above: Mild episode of recu rrent major depressive disorder (HCC) (Primary Dx); Hypertension, essential; Encounter for immunization Start: 08-07-2022 ambulatory Cyn prince PA-C Work Phone: [facility] Comment on above: Shooting Pain In Hea d Start: 08-07-2022 End: 08-07-2022 Patient encounter procedure Bev Banks APRN.DIRECTOR LIFE SALES Work Phone: [facility] Comment on above: Neck pain on right s nisa (Primary Dx) Start: 08-05-2022 End: 08-05-2022 Patient encounter procedure Lucina Wang APRN.DIRECTOR LIFE SALES Work Phone: OB/Gynecology Comment on above: Encounter for IUD in sertion (Primary Dx); Menorrhagia with irregular cycle; Dysmenorrhea Start: 07-28-2022 Telephone encounter Karmen Mcfadden RNcurriculum writer Comment on above: Request Outside [facility] Records Results Start: 07-27-2022 End: 07-27-2022 Patient encounter procedure Cyn Berry PA-C Work Phone: [facility] Comment on above: Well adult exam ([facility] Dx); Hypertension, essential; Dyslipidemia; Encounter for screening for diabetes mellitus; Mild episode of recurrent major depressive disorder (HCC); Inflammatory arthropathy; 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) Start: 07-27-2022 End: 07-27-2022 Patient encounter status Cyn Berry PA-C Work Phone: [facility] Start: 07-16-2022 Refill Britney Chong APRN.CNP Work Phone: [facility] Comment on above: Refill Request Start: 06-24-2022 End: 06-24-2022 Patient encounter procedure Britney Chong APRN.CNP Work Phone: [facility] Comment on above: Hypertension, essent ial (Primary Dx) Start: 05-14-2022 Telephone encounter Lucina bliss APRN.CNP Work Phone: OB/Gynecology Comment on above: Results; Orders; New Medication Start: 05-12-2022 End: 05-12-2022 Patient encounter procedure Marlene Melvin MD Work Phone: OB/Gynecology Comment on above: Excessive bleeding i n premenopausal period (Primary Dx) Start: 04-23-2022 Documentation procedure Mammog erika Coordinator [facility] Start: 04-23-2022 Letter encounter Mammography Coordinator [facility] Start: 04-22-2022 End: 04-22-2022 Subsequent hospital visit by physician Screen Mammo [facility] Comment on above: Encounter for screen ing mammogram for breast cancer [Z12.31] Start: 04-20-2022 End: 04-20-2022 Patient encounter procedure Lucina Wang APRN.DIRECTOR LIFE SALES Work Phone: OB/Gynecology Comment on above: Encounter for gyneco logical examination with abnormal finding (Primary Dx); Menorrhagia with irregular cycle; Vaginal yeast infection; Encounter for screening mammogram for breast cancer Start: 04-20-2022 End: 04-20-2022 Patient encounter status Lucina Wang APRNFlorianDIRECTOR LIFE SALES Work Phone: OB/Gynecology Start: 03-03-2022 ambulatory Yang bravo MD Work Phone: [facility] Comment on above: Possible RX Start: 06-12-2021 Patient encounter status Inna Nieves MD Work Phone: [facility] Work Phone: Start: 11-22-2020 End: 11-22-2020 Subsequent hospital visit by physician Xr [facility] Work Phone: Radiology Comment on above: Acute right-sided lo w back pain with right-sided sciatica [M54.41] Procedures Date Procedure Procedure Detail Performing Clinician Start: 05-02-2025 Antibody to centrome re measurement Dr. Trent Velazquez DO Work Phone: Comment on above: Previous reported re sult: TNP AIEdited by: JANICE on 05/07/25:0007 AMENDED REPORT 05/07/256 ANTI-CENT B previously reported as: Test not performed Start: 05-02-2025 Antibody to extracta ble nuclear antigen measurement Dr. Trent Velazquez DO Work Phone: Comment on above: Previous reported re sult: TNP AIEdited by: JANICE on 05/07/25:0007 AMENDED REPORT 05/07/256 JOSHUA Ab previously reported as: Test not performed Start: 05-02-2025 Antibody to ESTEFANY-[address] Trent Velazquez DO Work Phone: Comment on above: Previous reported re sult: TNP AIEdited by: INFCE on 05/07/25:0007 AMENDED REPORT 05/07/256 ANTI-ESTEFANY previously reported as: Test not performed Start: 05-02-2025 Antibody to lupus La protein measurement Dr. Trent Velazquez DO Work Phone: Start: 05-02-2025 Antibody to SS-A measurement Dr. Trent Velazquez DO Work Phone: Start: 05-02-[address] Trent Velazquez DO Work Phone: Comment on above: Previous reported re sult: TNP AIEdited by: JANICE on 05/07/25:0007 AMENDED REPORT 05/07/256 ANTICHROMATIN previously reported as: Test not performed Start: 05-02-[address] Stuart Samayoa DO Work Phone: Start: 05-02-[address] Trent Velazquez DO Work Phone: Start: 05-02-2025 SHED BOSS antibody measurement Dr. Trent Velazquez DO Work Phone: Comment on above: Previous reported re sult: TNP AIEdited by: JANICE on 05/07/25:0007 AMENDED REPORT 05/07/256 SHED BOSS Ab previously reported as: Test not performed Start: 05-02-2025 Serum inorganic phos phate measurement Dr. Trent Velazquez DO Work Phone: Start: 05-02-[address] Trent Velazquez DO Work Phone: Start: 03-09-2024 Arthrocentesis aspir [...] exam ches t 2 views Janneth Rachel APRN.DIRECTOR [employer] SAL[employer] Work Phone: Start: 08-24-2023 Computed tomography of [...] Start: 08-05-2022 Urine test visual color cmprsn meths Lucina Wang APRN.DIRECTOR [employer] SAL[employer] Work Phone: Start: 04-22-2022 End: 04-22-2022 Screening [...] Author Start: 02-18-2028 Lipid panel Lipid Screening [facility] Start: 02-18-2028 LIPID SCREEN LIPID SCREEN [facility] Start: 07-27-2027 LIPID SCREEN LIPID SCREEN [facility] Start: 07-07-2026 Diabetes Screening Diabetes Screening [facility] Start: 06-12-2026 LIPID SCREEN LIPID SCREEN [facility] Start: 03-13-2026 Urine microalbumin profile [facility] Start: 02-17-2026 DIABETES SCREEN DIABETES SCREEN [facility] Start: 07-27-2025 DIABETES SCREEN DIABETES SCREEN [facility] Start: 05-02-2025 Celiac disease screen [facility] Start: 05-02-2025 Gastrin [Mass/volume] in Serum or Plasma [facility] Start: 05-02-2025 Immunoglobulin measurement [facility] Start: 05-02-2025 In-vitro immunologic test [facility] Start: 05-02-2025 Serum immunofixation [facility] Start: 05-02-2025 [facility] Start: 12-21-2024 BP Controlled (<130/80) BP Controlled (<130/80) [facility] Start: 08-16-2024 HPV TESTING HPV TESTING [facility] Start: 08-16-2024 PAP TESTING PAP TESTING [facility] Start: 08-16-2024 Screening for malignant neoplasm of cervix [facility] Start: 06-22-2024 End: 06-22-2024 ambulatory 06/22/2024 2:00 PM EDT OT/PT/Speech Visit [facility] [address] [place] [address] O'Eliz Olmedo, PT Calcific tendinitis of right shoulder [M75.31] [facility] Comment on above: Calcific tendinitis of right shoulder [M 75.31] Start: 06-14-2024 End: 06-14-2024 ambulatory 06/14/2024 9:30 AM EDT OT/PT/Speech Visit [facility] [address] [place] [address] O'Eliz Olmedo, PT Calcific tendinitis of right shoulder [M75.31] [facility] Comment on above: Calcific tendinitis of right shoulder [M 75.31] Start: 06-12-2024 DIABETES SCREEN DIABETES SCREEN [facility] Start: 06-08-2024 End: 06-08-2024 ambulatory 06/08/2024 2:00 PM EDT OT/PT/Speech Visit [facility] [address] [place] [address] Farrah Whiting, FIELD CONSULTANT [address] [place] [address] Calcific tendinitis of right shoulder [M75.31] [facility] Comment on above: Calcific tendinitis of right shoulder [M 75.31] Start: 06-07-2024 Colonoscopy COLONOSCOPY [facility] Start: 06-07-2024 COLORECTAL CANCER SCREENING COLORECTAL CANCER SCREENING [facility] Start: 06-07-2024 Screening for malignant neoplasm of colon [facility] Start: 06-01-2024 End: 06-01-2024 ambulatory 06/01/2024 9:30 AM EDT OT/PT/Speech Visit [facility] [address] [place] [address] Farrah Whiting, CECILIA [address] [place] [address] Calcific tendinitis of right shoulder [M75.31] [facility] Comment on above: Calcific tendinitis of right shoulder [M 75.31] Start: 05-29-2024 End: 05-29-2024 ambulatory 05/29/2024 2:15 PM EDT [facility] [address] [place] [address] Chey Plata, DO [address] [place] [address] 6wks virtual visit (missed her original appoitnment on 05/01/24) Orthopaedics Comment on above: 6wks virtual visit (missed her original appoitnment on 05/01/24) Start: 05-27-2024 Covid-19 Vaccine ( season) Covid-19 Vaccine ( season) [facility] Start: 05-27-2024 Covid-19 Vaccine ( season) Covid-19 Vaccine ( season) [facility] Start: 05-27-2024 Influenza vaccination [facility] Start: 05-22-2024 End: 05-22-2024 ambulatory 05/22/2024 3:00 PM EDT OT/PT/Speech Visit [facility] [address] [place] [address] Eliz Sifuentes, PT M75.31 (ICD-10-CM) - Calcific tendinitis of right shoulder [facility] Comment on above: M75.31 (ICD-10-CM) - Calcific tendinitis of right shoulder Start: 05-15-2024 End: 05-15-2024 ambulatory 05/15/2024 3:00 PM EDT OT/PT/Speech Visit [facility] [address] [place] [address] Eliz Sifuentes, PT M75.31 (ICD-10-CM) - Calcific tendinitis of right shoulder [facility] Comment on above: M75.31 (ICD-10-CM) - Calcific tendinitis of right shoulder Start: 05-08-2024 End: 05-08-2024 ambulatory 05/08/2024 3:30 PM EDT OT/PT/Speech Visit [facility] [address] [place] [address] Farrah Whiting, FIELD CONSULTANT [address] [place] [address] M75.31 (ICD-10-CM) - Calcific tendinitis of right shoulder [facility] Comment on above: M75.31 (ICD-10-CM) - Calcific tendinitis of right shoulder Start: 05-06-2024 Dental X-Ray: FMX/Clancy Dental X-Ray: FMX/Clancy [facility] Start: 05-01-2024 End: 05-01-2024 ambulatory 05/01/2024 3:30 PM EDT OT/PT/Speech Visit [facility] [address] [place] [address] Farrah Whiting, FIELD CONSULTANT [address] [place] [address] M75.31 (ICD-10-CM) - Calcific tendinitis of right shoulder [facility] Comment on above: M75.31 (ICD-10-CM) - Calcific tendinitis of right shoulder Start: 05-01-2024 End: 05-01-2024 ambulatory 05/01/2024 7:30 AM EDT [facility] [address] [place] [address] Chey Plata, DO [address] [place] [address] 6wks virtual visit Orthopaedics Comment on above: 6wks virtual visit Start: 04-24-2024 End: 04-24-2024 ambulatory 04/24/2024 2:15 PM EDT OT/PT/Speech Visit [facility] [address] [place] [address] Eliz Sifuentes, PT M75.31 (ICD-10-CM) - Calcific tendinitis of right shoulder [facility] Comment on above: M75.31 (ICD-10-CM) - Calcific tendinitis of right shoulder Start: 04-17-2024 End: 04-17-2024 ambulatory 04/17/2024 1:30 PM EDT OT/PT/Speech Visit [facility] [address] [place] [address] Eliz Sifuentes, PT M75.31 (ICD-10-CM) - Calcific tendinitis of right shoulder [facility] Comment on above: M75.31 (ICD-10-CM) - Calcific tendinitis of right shoulder Start: 04-10-2024 End: 04-10-2024 ambulatory 04/10/2024 2:45 PM EDT OT/PT/Speech Visit [facility] [address] [place] [address] Farrah Whiting, FIELD CONSULTANT [address] [place] [address] M75.31 (ICD-10-CM) - Calcific tendinitis of right shoulder [facility] Comment on above: M75.31 (ICD-10-CM) - Calcific tendinitis of right shoulder Start: 04-04-2024 End: 04-04-2024 ambulatory 04/04/2024 3:45 PM EDT OT/PT/Speech Visit [facility] [address] [place] [address] Siobhan Patel, PT, DPT M75.31 (ICD-10-CM) - Calcific tendinitis of right shoulder [facility] Comment on above: M75.31 (ICD-10-CM) - Calcific tendinitis of right shoulder Start: 03-27-2024 End: 03-27-2024 ambulatory 03/27/2024 3:45 PM EDT OT/PT/Speech Visit [facility] [address] [place] [address] Eliz Sifuentes, PT Right shoulder =- [employer] [facility] Comment on above: Right shoulder =- [employer] Start: 03-09-2024 End: 03-09-2024 Patient encounter procedure 03/09/2024 9:15 AM EDT Office Visit Orthopaedics [address] [place] [address] Chey Plata D, DO [address] [place] [address] TENJET ONLY - RIGHT SHOULDER Orthopaedics Comment on above: [facility]ENJET ONLY - RIGHT SHOULDER Start: 02-23-2024 End: 02-23-2024 Patient encounter procedure 02/23/2024 2:25 PM EDT Appointment Radiology [address] [address] US SHOULDER RT; EVAL LOCATION+SIZE OF CALCIFIC DEPOSITS NOTED ON XR Radiology Comment on above: US SHOULDER RT; EVAL LOCATION+SIZE OF CA LCIFIC DEPOSITS NOTED ON XR Start: 02-22-2024 End: 02-22-2024 Patient encounter procedure 02/22/2024 10:45 AM EDT Office Visit Orthopaedics [address] [place] [address] Chey Plata, [address] [place] [address] discuss treatment options, right shoulder. Referred by Dr. Mekhi Gagnon Orthopaedics Comment on above: discuss treatment options, right shoulde r. Referred by Dr. Mekhi Gagnon Start: 02-13-2024 End: 02-13-2024 Patient encounter procedure 02/13/2024 9:10 AM EDT Appointment Mammogram [address] [place] [address] Mammogram Start: 02-08-2024 End: 02-08-2024 Patient encounter procedure Radiology Comment on above: rt shoulder XR rt shoulder pain (ca n hardly move it) Start: 01-28-2024 ANNUAL PCP TEAM CHRONIC DISEASE VISIT ANNUAL PCP TEAM CHRONIC DISEASE VISIT [facility] Start: 01-28-2024 BP CONTROLLED (<130/80) BP CONTROLLED (<130/80) [facility] Start: 09-26-2023 Behavioral Health Screening Behavioral Health Screening [facility] Start: 09-09-2023 BP CONTROLLED (<130/80) BP CONTROLLED (<130/80) [facility] Start: 08-25-2023 ANNUAL PCP TEAM CHRONIC DISEASE VISIT ANNUAL PCP TEAM CHRONIC DISEASE VISIT [facility] Start: 08-24-2023 [facility] Start: 07-27-2023 ANNUAL PCP TEAM CHRONIC DISEASE VISIT ANNUAL PCP TEAM CHRONIC DISEASE VISIT [facility] Start: 05-27-2023 Covid-19 Vaccine ( season) Covid-19 Vaccine ( season) [facility] Start: 05-27-2023 Influenza vaccination INFLUENZA (#1) [facility] Start: 04-22-2023 Mammography MAMMOGRAM [facility] Start: 04-22-2023 Screening for malignant neoplasm of breast Mammogram Screening [facility] Start: 09-26-2022 DEPRESSION ASSESSMENT DEPRESSION ASSESSMENT [facility] Start: 07-27-2022 End: 09-26-2022 Comprehensive metabolic 2000 panel - Serum or Plasma [facility] Work Phone: Comment on above: Expected: 07/27/2022, Expires: 3 Start: 07-27-2022 End: 09-26-2022 Hemoglobin A1c in Blood [facility] Work Phone: Comment on above: Expected: 07/27/2022, Expires: 3 Start: 07-27-2022 End: 09-26-2022 LIPID PANEL, NONFASTING [facility] Work Phone: Comment on above: Expected: 07/27/2022, Expires: 3 Start: 07-27-2022 End: 09-26-2022 Urinalysis complete panel - Urine [facility] Work Phone: Comment on above: Expected: 07/27/2022, Expires: 3 Start: 06-10-2022 Adult depression screening assessment DEPRESSION SCREENING [facility] Start: 05-27-2022 Influenza vaccination INFLUENZA (#1) [facility] Start: 04-20-2022 End: 06-20-2022 Thyrotropin [Units/volume] in Serum or Plasma [facility] Work Phone: Comment on above: Expected: 04/20/2022, Expires: 2 Start: 10-15-2021 Mammography MAMMOGRAM [facility] Start: 09-26-2021 DEPRESSION ASSESSMENT DEPRESSION ASSESSMENT [facility] Start: 04-04-2021 COVID-19 VACCINE (3 - Booster for Moderna series) COVID-19 VACCINE (3 - Booster for Moderna series) [facility] Start: 12-31-2020 COVID-19 VACCINE (3 - Booster for Moderna series) COVID-19 VACCINE (3 - Booster for Moderna series) [facility] Start: 2020 COLOGUARD (FIT-DNA) COLOGUARD (FIT-DNA) [facility] Start: [address] COLONOGRAPHY [facility] Start: 2020 FECAL OCCULT BLOOD FECAL OCCULT BLOOD [facility] Start: 2020 Screening for malignant neoplasm of colon [facility] Start: 2020 SIGMOIDOSCOPY SIGMOIDOSCOPY [facility] Start: 11-16-2019 HEPATITIS B (2 of 3 - 3-dose series) [facility] Start: 11-16-2019 Hepatitis B Vaccine (2 of 3 - 19+ 3-dose series) Hepatitis B Vaccine (2 of 3 - 19+ 3-dose series) [facility] Start: 1993 Anxiety Screening Anxiety Screening [facility] Start: 1993 BP CONTROLLED (<130/80) BP CONTROLLED (<130/80) [facility] Start: 1993 Depression Screening Depression Screening [facility] Start: 1975 Dental Oral Exam Dental Oral Exam [facility] Start: 1975 Dental Perio Probing Dental Perio Probing [facility] Start: 1975 Dental Prophylaxis Dental Prophylaxis [facility] Start: 1975 Dental X-Ray: Bitewings Dental X-Ray: Bitewings [facility] Start: 1975 Periodontal Maintenance Periodontal Maintenance [facility] Albumin [Moles/volum e] in Serum or Plasma [facility] Albumin/Globulin ratio [facility] C reactive protein [Mass/volume] in Serum or Plasma [facility] CBC W Auto Different ial panel - Blood [facility] Celiac disease screen [facility] Chitobioside IgA Ab [Units/volume] in Serum or Plasma by Immunoassay [facility] Clostridioides diffi cile DNA [Presence] in Unspecified specimen by NYDIA with probe detection [facility] Comprehensive metabo lic 2000 panel - Serum or Plasma [facility] Elastase.pancreatic [Presence] in Stool [facility] Electrophoresis: [id number] [facility] Electrophoresis: venkat ma globulin [facility] Endometrial bx w/wo endocervix bx w/o dilat spx ENDOMETRIAL BIOPSY Procedures Routine Excessive bleeding in premenopausal period Ordered: 05/14/2022 [facility] Work Phone: Comment on above: Ordered: 05/14/2022 Erythrocyte sediment ation rate [facility] Fat [Presence] in Stool [facility] Ferritin [Mass/volum e] in Serum or Plasma [facility] Gastrin [Mass/volume ] in Serum or Plasma [facility] Globulin measurement [facility] IgA [Mass/volume] in Serum or Plasma [facility] IgE [Units/volume] i n Serum or Plasma [facility] IgG [Mass/volume] in Serum or Plasma [facility] IgM [Mass/volume] in Serum or Plasma [facility] Immunoglobulin measurement [facility] In-vitro immunologic test [facility] Insertion intrauteri ne device iud INSERT INTRAUTERINE DEVICE Procedures Routine Excessive bleeding in premenopausal period Ordered: 05/14/2022 [facility] Work Phone: Comment on above: Ordered: 05/14/2022 Laboratory data interpretation [facility] Lactate dehydrogenas e measurement [facility] Lactoferrin [Presenc e] in Stool by Immunoassay [facility] Laminaribioside IgG Ab [Units/volume] in Serum or Plasma by Immunoassay [facility] Magnesium measurement [facility] End: 06-23-2024 [facility] SCREENING [facility] SCREEN[facility] Radiology Routine Encounter for screening mammogram for breast cancer 1 Occurrences starting 05/25/2023 until 06/23/2024 [facility] Work Phone: Comment on above: 1 Occurrences starting 05/25/2023 until 06/23/2024 Mannobioside IgG Ab [Units/volume] in Serum or Plasma by Immunoassay [facility] Measurement of funga l antibody [facility] Mycobacterium tuberc ulosis tuberculin stimulated gamma interferon [Presence] in Blood [facility] Neutrophil cytoplasm ic Ab.classic [Units/volume] in Serum [facility] Neutrophil cytoplasm ic Ab.perinuclear.atypical [Titer] in Serum by Immunofluorescence [facility] Nucleic acid assay [facility] P-ANCA measurement [facility] Patient Education [facility] Work Phone: Patient referral [facility] Work Phone: PELVIC US WHI PELVIC US I An c Imaging Routine Menorrhagia with irregular cycle Ordered: 04/20/2022 [facility] Work Phone: Comment on above: Ordered: 04/20/2022 Protein electrophore sis panel - Serum or Plasma [facility] Protein measurement [facility] End: 05-20-2023 Screening mammography bi 2-view breast inc cad [facility] SCREENING Radiology Routine Encounter for screening mammogram for breast cancer 1 Occurrences starting 04/20/2022 until 05/20/2023 [facility] Work Phone: Comment on above: 1 Occurrences starting 04/20/2022 until 05/20/2023 Screening mammograph y bi 2-view breast inc cad [facility] SCREENING Radiology Routine Encounter for screening mammogram for breast cancer 04/22/2022 3:06 PM EDT [facility] Work Phone: Serum immunofixation [facility] Serum inorganic phos phate measurement [facility] SURGICAL PATHOLOGY SURGICAL PATH OLOGY Lab Routine Encounter for IUD insertion Ordered: 08/05/2022 [facility] Work Phone: Comment on above: Ordered: 08/05/2022 T4 free measurement [facility] Thyroid stimulating hormone measurement [facility] Tissue transglutamin ase IgA Ab [Units/volume] in Serum [facility] Triiodothyronine, fr ee measurement [facility] End: 03-09-2025 US Shoulder - right US SHOULDER RIGHT Radiology SHLOMO Calcific tendonitis 1 Occurrences starting 02/08/2024 until 03/09/2025 [facility] Work Phone: Comment on above: 1 Occurrences starting 02/08/2024 until 03/09/2025 Vitamin B12 measurement [facility] End: 03-07-2025 XR Shoulder - right 3 Views XR SHOULDER GENERAL 3V OR MORE AP/TRUE AP/OTHER RIGHT Radiology Routine Pain 1 Occurrences starting 02/06/2024 until 03/07/2025 [facility] Work Phone: Comment on above: 1 Occurrences starting 02/06/2024 until 03/07/2025 XR Shoulder - right 3 Views XR S HOULDER GENERAL 3V OR MORE AP/TRUE AP/OTHER RIGHT Radiology Routine Pain 02/08/2024 10:03 AM EDT [facility] Work Phone: [facility] Immunizations Immunization Date Immunization Notes Care Provider Lorie vergara 09-05-2024 influenza, seasonal, injectable, preservative free Dr. Trent Velazquez DO Work Phone: [facility] 08-25-2022 COVID-19 booster vaccine, age 12+ yr, bivalent (PFIZER-BIONTECH) Cyn Berry PA-C Work Phone: [facility] 08-25-2022 influenza, injectabl e, quadrivalent, contains preservative Cyn Berry PA-C Work Phone: [facility] 08-25-2022 influenza virus vaccine, unspecified formulation Benjamin Gagnon MD Work Phone: [facility] 06-12-2021 influenza, injectabl e, quadrivalent, contains preservative Yang Nieves MD Work Phone: [facility] 11-05-2020 Covid (Moderna) Dr. Trent isaacs DO Work Phone: [facility] 10-08-2020 Covid (Moderna) Dr. Trent isaacs DO Work Phone: [facility] 11-02-2019 influenza, injectabl e, quadrivalent, contains preservative Yang Nieves MD Work Phone: [facility] 10-19-2019 hepatitis A vaccine, adult dosage Yang Nieves MD Work Phone: [facility] Work Phone: 10-19-2019 hepatitis B vaccine, adult dosage Yang Nieves MD Work Phone: [facility] Work Phone: 10-19-2019 measles, mumps and rubella virus vaccine Yang Nieves MD Work Phone: [facility] Work Phone: 10-19-2019 hepatitis B vaccine, unspecified formulation Marlene Melvin MD Work Phone: [facility] 07-29-2018 influenza, injectabl e, quadrivalent, contains preservative Yang Nieves MD Work Phone: [facility] Work Phone: 07-14-2016 influenza, injectabl e, quadrivalent, contains preservative Yang Nieves MD Work Phone: [facility] Work Phone: 03-13-2016 tetanus toxoid, redu ekaterina diphtheria toxoid, and acellular pertussis vaccine, adsorbed Yang Nieves MD Work Phone: [facility] Work Phone: 06-18-2015 influenza, injectabl e, quadrivalent, preservative free [facility] 06-18-2015 influenza, seasonal, injectable [facility] 05-07-1991 diphtheria and tetan us toxoids, adsorbed for pediatric use Yang Nieves MD Work Phone: [facility] 11-27-1979 tuberculin skin test ; purified protein derivative solution, intradermal Eliz O'Honorio PT [facility] 11-20-1979 diphtheria, tetanus toxoids and acellular pertussis vaccine Yang Nieves MD Work Phone: [facility] 11-20-1979 trivalent poliovirus vaccine, live, oral Yang Nieves MD Work Phone: [facility] 06-19-1976 measles, mumps and rubella virus vaccine Yang Nieves MD Work Phone: [facility] 1975 diphtheria, tetanus toxoids and acellular pertussis vaccine Yang Nieves MD Work Phone: [facility] 1975 trivalent poliovirus vaccine, live, oral Yang Nieves MD Work Phone: [facility] 1975 diphtheria, tetanus toxoids and acellular pertussis vaccine Yang Nieves MD Work Phone: [facility] 1975 trivalent poliovirus vaccine, live, oral Yang Nieves MD Work Phone: [facility] 1975 diphtheria, tetanus toxoids and acellular pertussis vaccine Yang Nieves MD Work Phone: [facility] 1975 trivalent poliovirus vaccine, live, oral Yang Nieves MD Work Phone: [facility] Payers Date Payer Category Payer Unknown [id number] 2024 Self-pay 2023 Unknown [id number] 2021 Unknown MMO MMO [employer] [id number] 2021-Present [phone] [address] [place] [address] PPO [id number] 2015 Unknown [id number] 2015 Unknown [id number] Unknown [id number] Unknown [id number] Unknown [id number] Unknown [id number] Unknown [id number] Unknown [id number] Unknown [id number] Social History Date Type Detail Facility Start: 11-09-2017 End: 08-24-2023 Tobacco smoking status NHIS Never smoked tobacco [facility] Start: 09-01-2020 End: 09-07-2021 Alcohol intake Current drinker of alcohol (finding) [facility] Start: 08-31-2020 End: 09-07-2021 Alcohol intake [facility] Start: 06-10-2021 History SDOH Alcohol Frequency 4 [facility] Start: 06-10-2021 History SDOH Alcohol Std Drinks 1 [facility] Start: 06-10-2021 History SDOH Social Connections Get Together 5 [facility] Start: 06-10-2021 History SDOH Social Connections Living 3 [facility] Start: 06-10-2021 History SDOH Stress 2 [facility] Start: 06-10-2021 Education 12 [facility] Start: 1975 Sex Assigned At Not on file [facility] Start: 11-09-2017 End: 06-24-2022 Tobacco use and exposure Smokeless tobacco non-user [facility] Work Phone: Start: 10-23-2020 End: 08-25-2022 Exposure to SARS-CoV-2 (event) Not sure [facility] Start: 07-27-2022 Alcohol Comment occassionally [facility] Start: 07-17-2022 End: 07-27-2022 Exposure to SARS-CoV-2 (event) Yes [facility] Start: 04-14-2017 End: 08-24-2023 Tobacco smoking status MSIS Unknown if ever smoked [facility] Start: 1975 Sex Assigned At Female [facility] Start: 08-31-2020 End: 06-10-2021 Social connection and isolation panel [facility] Active Member of [facility] bs or Organizations Not on file [facility] Are you now , , , , never or living with a partner? [facility] How often to you hav e a drink containing alcohol? 2-3 time sa week [facility] How many standard drinks containing alcohol do you have on a typical day? 1 or 2 [facility] [facility] How often do you hav e 6 or more drinks on 1 occasion? Never [facility] Do you feel stress - tense, restless, nervous, or anxious, or unable to sleep at night because your mind is troubled all the time - these days [OSQ] Only a little [facility] (I/We) worried wheth er (my/our) food would run out before (I/we) got money to buy more. Never true [facility] In the past 12 month s, was there a time when you were not able to pay the mortgage or rent on time? No [facility] How often to you hav e a drink containing alcohol? 2-4 times a month [facility] NEGATED: Highlighted row [facility] Goals Date Patient Goal Desired Activity /State Personal health goal Mental Status Date Assessment Result Facility 04-28-2023 Cognitive function Voice/Name [facility] Work Phone: Clinical Notes 11-22-2020 to 01-07-2025 Note Date & Type Note Facility 01-07-2025 Evaluation note Diagnosis Onset Date Resolution Allergic dermatitis acute January 07, 2025 6:54am History of palpitations acute A pril 2024 6:54am Bloating acute April 15 8:32am Diarrhea acute April 15 8:32am [facility] Work Phone: 1(648) 431-485109-19-2024 History of Present illness Narrative* Eliz Sifuentes, PT - 06/14/2024 10:01 AM EDT Program_ID:[id number] Access Code: [email or web address] URL: [email or web address].[email or web address] Intelligence/ Date: 06-14-2024 Prepared By: Eliz Sifuentes Program [...] 06/14/2024 and treatment included: Therapeutic exercise and Self-residential management. Goals for Episode of Care: created on 03/27/24 through 05/22/24 Goals updated on 05/15/2024 through 06/26/24 Goals updated on 06/14/2024. [place] in home exercise program. -- MET Patient [...] : 926 Session Stop Time : 1006 ANDREIA Rodriguez documented in this encounterBlanchard Valley Health [facility]24 NoteHNO ID: [id number] Author: ELIZ SIFUENTES PT Service: ? Author [...] 06/14/2024 and treatment included: Therapeutic exercise and Self-residential management. Goals for Episode of Care: created on 03/27/24 through 05/22/24 Goals updated on 05/15/2024 through 06/26/24 Goals updated on 06/14/2024. [place] in home exercise program. -- MET Patient [...] : 926 Session Stop Time : 1006 [facility] NoteHNO ID: [id number] Author: ELIZ SIFUENTES PT Service: ? Author [...] : 929 Session Stop Time : 1009 Farrah Whiting, FIELD CONSULTANT Eliz Sifuentes, [facility]09-06-2024 History of Present illness Narrative* Eliz Sifuentes, [...] 1009 CECILIA Dumas PT documented in this encounterBlanchard Valley Health System [facility]08-27[facility]2024 NoteHNO ID: [id number] Author: ELIZ SIFUENTES PT Service: ? Author [...] Session Stop Time : 1534 Eliz Sifuentes, [facility]08-27-2024 History of Present illness Narrative* Eliz Sifuentes, [...] Session Stop Time : 1534 Eliz Sifuentes, PT documented in this encounterBlanchard Valley Health System [facility]08[facility] History of Present illness Narrative* Eliz Sifuentes, PT - 05/15/2024 3:24 PM EDT Program_ID:[id number] Access Code: [email or web address] URL: [email or web address].[email or web address] Intelligence/ Date: 05-15-2024 Prepared By: Eliz Sifuentes Program [...] 4 sets - 8-10 reps * Eliz Sifuentes, PT - 05/15/2024 2:55 PM EDT Episode [...] 05/22/24 Goals updated on 05/15/2024 through 06/26/24 [place] in home exercise program. -- MET Patient [...] Patient to be seen for Gait Training (08297), Self-residential management (87564), Therapeutic activities (23631), Manual therapy (85554), Therapeutic exercise (55351), Neuromuscular re-education (90514) PLAN FOR NEXT VISIT: assess symptom response with scapular stabilization using theraband resistance SUBJECTIVE: Pt. reports improvement with using a computer mouse. 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 Pain is in the anterior R shoulder. [...] pink band 3: *Access Code: [email or web address] URL: [email or web address] Date: 05/15/2024 Prepared by: Eliz Schmid Exercises [...] Time (minutes): 38 Session Start Time : 1458 Session Stop Time : 1536 Eliz Sifuentes PT documented in this encounterBlanchard Valley Health System [facility]08-20-2024 NoteHNO ID: [id number] Author: ELIZ SIFUENTES PT Service: ? Author [...] 05/22/24 Goals updated on 05/15/2024 through 06/26/24 [place] in home exercise program. -- MET Patient [...] Patient to be seen for Gait Training (53742), Self-residential management (44414), Therapeutic activities (93534), Manual therapy (11418), Therapeutic exercise (01802), Neuromuscular re-education (27672) PLAN FOR NEXT VISIT: assess symptom response with scapular stabilization using theraband resistance SUBJECTIVE: Pt. reports improvement with using a computer mouse. 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 Pain is in the anterior R shoulder. [...] pink band 3: *Access Code: [email or web address] URL: [email or web address]/ Date: 05/15/2024 Prepared by: Eliz Sifuentes Exercises [...] weekly - 4 set (more content not included)...[facility] 05-08-2024 NoteHNO ID: [id number] Author: ELIZ SIFUENTES PT Service: ? Author Type: Physical Therapist Type: Progress Notes Filed: 05/08/2024 16:46 Note Text: Episode Visit Count: 5 Therapist That Will Accept/Oversee The Plan Of Care: Eliz O'Honorio Start of Care Date: 03/27/24 Onset Date: [...] shoulder is sore today. 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 Pain: Pain [...] Time : 153 Session Stop Time : 161 CECILIA Dumas, [facility]08-13-2024 History of Present illness Narrative* Eliz Sifuentes, [...] shoulder is sore today. 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 Pain: Pain [...] : 153 Session Stop Time : 1611 CECILIA Dumas PT documented in this encounterBlanchard Valley Health [facility]08-06[facility] History of Present illness Narrative* Farrah Whiting PTA - 05/01/2024 4:00 PM EDT Program_ID:[id number] Access Code: [email or web address] URL: [email or web address] Intelligence/ Date: 05-01-2024 Prepared By: Eliz Sifuentes Program [...] 1601 CECILIA Dumas PT documented in this encounterBlanchard Valley Health System [facility]08-06-2024 NoteHNO ID: [id number] Author: STERLING BOYD PT Service: ? Author [...] Session Stop Time : 1601 Farrah Whiting, CECILIA Boyd, [facility]07-16-2024 NoteHNO ID: [id number] Author: ELIZ SIFUENTES, PT Service: ? Author [...] Session Stop Time : 1516 CECILIA Dumas, [facility]07-16-2024 History of Present illness Narrative* Eliz Sifuentes, [...] 1516 CECILIA Dumas, PT documented in this encounterBlanchard Valley Health System [facility]07-10-[facility] History of Present illness Narrative* Siobhan Patel PT, DPT - 04/04/2024 4:23 PM EDT Program_ID:[id number] Access Code: [email or web address] URL: [email or web address]/ Date: 04-04-2024 Prepared By: Eliz Sifuentes Program [...] Siobhan Patel PT, DPT documented in this encounterBlanchard Valley Health System [facility]07-10-2024 NoteHNO ID: [id number] Author: SIOBHAN PATEL PT, DPT Service: ? [...] Stop Time : 1626 Siobhan Patel PT, [facility]07-02-2024 History of Present illness Narrative* Eliz Sifuentes, PT - 03/27/2024 4:05 PM EDT Program_ID:[id number] Access Code: [email or web address] URL: [email or web address]/ Date: 03-27-2024 Prepared By: Eliz Sifuentes Program [...] of Care: created on 03/27/24 through 05/22/24 [place] in home exercise program. Patient will decrease [...] Planned: 8 Planned Treatment Interventions: Gait Training (95466), Self-residential management (39672), Therapeutic activities (38489), Manual therapy (81550), Therapeutic exercise (60567), Neuromuscular re-education (74871) PLAN FOR NEXT VISIT: isometrics Patient demonstrates [...] been taking tylenol sincesurgery. Works at a [employer] all day for work. Pt. 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/ Date: 03/27/2024 Prepared by: Eliz Schmid Exercises [...] and function . Patient education as noted. Self-Long Term Management: 1: advised progressing AAROM only within [...] 1625 Eliz Sifuentes PT documented in this encounterBlanchard Valley Health System [facility]07-02-2024 NoteHNO ID: [id number] Author: ELIZ SIFUENTES PT Service: ? Author [...] of Care: created on 03/27/24 through 05/22/24 [place] in home exercise program. 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 [facility]06-14-2024 NoteHNO ID: [id number] Author: CHEY PLATA, DO Service: ? Author Type: Physician Type: Progress Notes Filed: 03/09/2024 13:14 Note Text: Minimally Invasive Tenotomy Informed Consent Consent Obtained: Verbal Ray[place]ham Protocol A moment to CARE was completed. [...] subacromial bursa Informed Consent Consent Obtained: Verbal Ray[place]ham Protocol A moment to CARE was completed. [...] Care Visit completed when applicable Chey Plata [facility]06-14-2024 History of Present illness Narrative* Chey Plata, DO - 03/09/2024 1:13 PM EDTAssociated Order(s): Minimally Invasive Tenotomy; Large Joint Arthro/Inj: R subacromial bursa Post-Procedure Diagnose(s): Calcific tendinitis of right shoulder Minimally Invasive Tenotomy Informed Consent Consent Obtained: Verbal Raynham Protocol A moment to CARE was completed. [...] subacromial bursa Informed Consent Consent Obtained: Verbal Raynham Protocol A moment to CARE was completed. [...] applicable Chey Plata DO documented in this encounterBlanchard Valley Health System [facility]06-14-[facility] Instructions* Patient Instructions* Chey Plata DO - 03/09/2024 9:24 AM EDT Follow-up with me in 6 weeks, can be virtual Follow-up with PT in 2-3 weeks documented in this encounterBlanchard Valley Health System [facility]05-29-[facility] Telephone encounter Note * Telephone Encounter - Chey Plata DO - 02/22/2024 4:46 PM EDT This was discussed, and I did not send the medication. I have now sent the Rx to the pharmacy. Chey Plata DO [facility]05-29-2024 Miscellaneous Notes* Telephone Encounter - Chey [...] calling: self Call patient at: at home [phone] (home) [phone] (cell) Was an appointment scheduled: No Closing statement: Symptom Call: Thank you for calling [facility], your call is very important. A nurse will call in approximately 2-4 hours during business hours. If this is an emergency, please contact 911Florian العلي documented in this encounterBlanchard Valley Health System [facility]05-29-20[facility] Telephone encounter Note * Telephone Encounter [...] calling: self Call patient at: at home [phone] (home) [phone] (cell) Was an appointment scheduled: No Closing statement: Symptom Call: Thank you for calling [facility], your call is very important. A nurse will call in approximately 2-4 hours during business hours. If this is an emergency, please contact 911. Kaila العلي [facility]05-29-2024 NoteHNO ID: [id number] Author: CHEY LPATA DO Service: ? Author Type: Physician Type: [...] results and radiologist's interpretation, available in the [facility] health record. Images were reviewed with the [...] will be enrolled in shoulder health care attorney to assist in preparation for procedure. Verbal health education was given to patient. Patient verbalizes understanding and agrees with the treatment plan as detailed above. Chey Plata [facility]05-29-2024 History of Present illness Narrative* Chey [...] results and radiologist's interpretation, available in the [facility] health record. Images were reviewed with the [...] will be enrolled in shoulder health care attorney to assist in preparation for procedure. Verbal health education was given to patient. Patient verbalizes understanding and agrees with the treatment plan as detailed above. Chey Plata DO documented in this encounterBlanchard Valley Health System [facility]05-15-2024 Telephone encounter Note * Telephone Encounter - Shala Hoffman - 02/08/2024 1:09 PM EDT Patient has been scheduled for their MSK US exam on 02/23/24 : [facility] PM [facility]05-15-2024 Miscellaneous Notes* Telephone Encounter - Shala [...] locations. Slot held: N/A documented in this encounterBlanchard Valley Health System [facility]05-15-[facility] Telephone encounter Note * Telephone Encounter - Eliel Natarajan - 02/08/2024 12:59 PM EDT Patient returned phone call and appointment has been scheduled with Dr. Plata on 02/22/24. [facility]05-15-2024 Miscellaneous Notes* Telephone Encounter - Eliel Natarajan - 02/08/2024 12:59 PM EDT Patient returned phone call and appointment has been scheduled with Dr. Plata on 02/22/24. * Telephone Encounter - Eliel Natarajan - 02/08/2024 12:00 PM EDT Attempted to contact patient to schedule an appointment with Dr. Palta or Dr. Fregoso to discuss treatment options for right shoulder. Left voicemail with my direct phone number. documented in this encounterBlanchard Valley Health System [facility]05-15-[facility] Telephone encounter Note * Telephone Encounter [...] of our three locations. Slot held: N/A [facility]05-15-2024 Telephone encounter Note* Telephone Encounter - Eliel Natarajan - 02/08/2024 12:00 PM EDT Attempted to contact patient to schedule an appointment with Dr. Plata or Dr. Fregoso to discuss treatment options for right shoulder. Left voicemail with my direct phone number. [facility]05-15-2024 NoteHNO ID: [id number] Author: BENJAMIN GAGNON MD Service: ? Author [...] to go to the emergency department in [place] Current Outpatient Medications Medication Sig oxyCODONE-acetaminophen (PERCOCET) [...] patient to either Dr. (more content not included)...[facility]05-15-2024 History of Present illness Narrative* Benjamin Gagnon [...] to go to the emergency department in [place] Current Outpatient Medications Medication Sig oxyCODONE-acetaminophen (PERCOCET) [...] Dr. Fregoso or Dr. Plata in the [place] area. At the conclusion of the office visit, the patient was asked if they had any questions regarding the diagnosis or care. Also, ample time was provided for the patient to ask any questions regarding the diagnosis therefore plan of care. All the patient's questions if asked were answered to their satisfaction. This note was partially generated using [employer] recognition system and as such may contain grammatical or word errors Benjamin Gagnon MD documented in this encounterBlanchard Valley Health System [facility]05-15-20[facility] History of Present illness Narrative* Lizz Dorsey RT(R) - 02/08/2024 10:00 AM EDT Radiology [...] PATIENT PRESENTS WITH AN IMPLANTABLE OR ATTACHED CASH SPECIALIST: No RADIOLOGY DEPARTMENT: General X-ray: Exam(s) Completed: Upper Extremity X- Ray(s): Shoulder, AP / TRUE AP / AXILLARY right PERIPHERAL IV DATA: Not applicable SIGNED BY: GEORGINA Burgess) February 08, 2024 10:11 AM documented in this encounterBlanchard Valley Health System [facility]05-15-2024 NoteHNO ID: [id number] Author: LIZZ DORSEY RT(R) Service: ? Author Type: [place] Type: Progress Notes Filed: 02/08/2024 10:12 Note [...] PATIENT PRESENTS WITH AN IMPLANTABLE OR ATTACHED CASH SPECIALIST: No RADIOLOGY DEPARTMENT: General X-ray: Exam(s) Completed: Upper Extremity X-Ray(s): Shoulder, AP / TRUE AP / AXILLARY right PERIPHERAL IV DATA: Not applicable SIGNED BY: RT Jenifer(R) February 08, 2024 10:11 [facility]03-28-2024 History of Present illness Narrative* Ghulam Smith [...] PATIENT PRESENTS WITH AN IMPLANTABLE OR ATTACHED CASH SPECIALIST: No RADIOLOGY DEPARTMENT: General X-ray: Exam(s) Completed: Chest X-Ray PERIPHERAL IV DATA: Not applicable SIGNED BY: RT Law(R) December 22, 2023 9:20 AM documented in this encounterBlanchard Valley Health System [facility]03-28-2024 NoteHNO ID: [id number] Author: GHULAM SMITH RT(Jacinto) Service: Radiology Author Type: Technologist Type: Progress [...] PATIENT PRESENTS WITH AN IMPLANTABLE OR ATTACHED CASH SPECIALIST: No RADIOLOGY DEPARTMENT: General X-ray: Exam(s) Completed: Chest X-Ray PERIPHERAL IV DATA: Not applicable SIGNED BY: RT Law(R) December 22, 2023 9:20 [facility]03-28-2024 NoteHNO ID: [id number] Author: JANNETH RACHEL APRN.DIRECTOR [employer] Service: ? Author Type: Nurse Practitioner Type: [...] was reviewed and agreed upon. Janneth Rachel APRN.[facility]11-29-2023 Discharge summary Author Griselda Stewart [facility] August 24, 2023 11:05pm Note Date/Time August 24, 2023 8:58pm [facility] Medical Records Department [address] [place] [address] Emergency Department Summary 08/24/23 MR#: [id number] Acct: [id number] Name: JOHNSONMENDOZA Izaiah Rep #:[id number] : 1975 48 From: Griselda Stewart DO [...] a 6 or 7 out of 10. [facility] Medical History (Updated 08/24/23 @ 23:02 [...] as well as Bentyl and a few [place] for severe pain. Advised to returnif worsening [...] % (Auto) 69.9 Lymph % (Auto) 20.7 [place] % (Auto) 7.0 Eos % (Auto) 1.6 [...] Sl. Cloudy Urine pH 5.0 Ur Specific [place] 1.025 Urine Protein Negative Urine Glucose (UA) [...] your Primary Care Provider. Call [facility] ([phone]) or report to the closest Emergency Room. Call 911 if necessary. 08/24/235 <Electronically signed by Griselda Stewart DO> Cosigner Signature (if applicable): CC: Dr. Trent Velazquez DO ~ Signed [facility] Work Phone: 1(621) 209-842608-03-2023 Discharge summary Author Bo Young [facility] April 28, 2023 9:16am Note Date/Time April 28, 2023 7:1 2am [facility] Medical Records Department [address] [place] [address] Emergency Department Summary 04/28/23 MR#: [id number] Acct: [id number] Name: MENDOZA JOHNSON Rep #:[id number] : 1975 47 From: Bo Young MD [...] heartbeat lasted for a couple hours) Quality: [place] heartbeat Location: Chest Current Severity: Still does [...] Prior similar symptoms: No Recent Illness/Hospitalization: No [facility] Medical History Hypertension Home Medications Cetirizine [...] follows: Interpretation: Sinus Rhythm (Rate is 65. MI interval is 150 ms. Cures duration 84 ms. QT duration 404 ms. [place] is normal. There is a premature ventricular [...] your Primary Care Provider. Call [facility] ([phone]) or report to the closest Emergency Room. Call 911 if necessary. 04/28/2316 <Electronically signed by Bo Young MD> Cosigner Signature (if applicable): CC: Dr. Trent Velazquez DO ~ Signed [facility] Work Phone: 1(162) 355-815606-15-2023 Miscellaneous Notes* Telephone Encounter - Yang Nieves [...] 90 days to now be sent to [facility] Pharm. Pharm updated. Call pt only if problem in refilling. Pt is out of her lisinopril. Carlos Turner LPN documented in this encounterBlanchard Valley Health System [facility]05-04-2023 Instructions* Patient Instructions* Dania Church APRN.CNP - 01/27/2023 5:29 PM EDT Start augmentin Follow up if no improvement in 7 days documented in this encounterBlanchard Valley Health System [facility]05-04-20[facility] History of Present illness Narrative* Dania Church APRN.CNP - 01/27/2023 5:21 PM EDT Chief Complaint [...] - Continue tylenol and ibuprofen Dania Church APRN.CNP documented in this encounterBlanchard Valley Health System [facility]12-15-2022 History of Present illness Narrative* Lucina Wang APRN.CNP - 09/09/2022 2:26 PM EST Oxide Furnace Tender offered: Patient declines. Mendoza Johnson presents today [...] annual exam and as needed. Lucina Wang APRN.CNP I spent a total of 20 minutes on the date of the service which included preparing to see the patient, [id number] patient care, completing clinical documentation, obtaining and/or reviewing separately obtained history, performing a medically appropriate examination, and counseling and educating the patient/family/caregiver. documented in this encounterBlanchard Valley Health System [facility]11-30-2022 Instructions* Patient Instructions* Cyn Berry PA-C - 08/25/2022 12:49 PM EST Please update me via Muufrit in 1 month on how lexapro 10mg is doing for you. Follow up routine in 6 months or sooner as needed. documented in this encounterBlanchard Valley Health System [facility]11-30-2022 History of Present illness Narrative* Cyn [...] to 10mg Patient to update me via Snapdealhart as needed in 1 month. Otherwise follow [...] YR Cyn Berry PA-C documented in this encounterBlanchard Valley Health System [facility]11-12-2022 History of Present illness Narrative* Bev [...] illness Bev Banks APRN.CNP documented in this encounterBlanchard Valley Health System [facility]11-12-2022 Instructions* Patient Instructions* Bev Banks APRN.CNP [...] illness Bev Banks APRN.CNP documented in this encounterBlanchard Valley Health System [facility]11-12-2022 Miscellaneous Notes* Telephone Encounter - Carlos Turner LPN - 08/07/2022 8:25 AM EST . documented in this encounterBlanchard Valley Health System [facility]11-10-2022 Instructions* Patient Instructions* Alissa Barrow Ma [...] please contact the office. documented in this encounterBlanchard Valley Health System [facility]11-10-2022 History of Present illness Narrative* Lucina Wnag APRN.DEEPALI - 08/05/2022 8:51 AM EST Oxide Furnace Tender offered: Patient declines. Mendoza presents today for [...] IUD source: office provided IUD lot #: [id number] Exp date: 10/26/24 UNIVERSAL PROTOCOL / SAFETY CHECKLIST Procedure to be Performed: endometrial biopsy and Intrauterine Device (IUD) Insertion Mirena Sign In: A Moment of CARE was [...] patient. Lucina Wang APRN.DEEPALI documented in this encounterBlanchard Valley Health System [facility]11-04-2022 Miscellaneous Notes* Telephone Encounter - Gabi [...] of labs are normal. documented in this encounterBlanchard Valley Health System [facility]11-02-2022 Miscellaneous Notes* Telephone Encounter - Karmen Mcfadden RN - 07/28/2022 3:51 PM EDT Called patient in an attempt to obtain outside records or recent procedures/ imaging. Patient unable to be reached. Karmen Mcfadden RN [facility] History of Present illness Narrative* Cyn [...] No history of dysuria, frequency or incontinence [employer]: Negative for abnormal vaginal bleeding, abnormal vaginal [...] GASTROENTEROLOGY Cyn Berry PA-C documented in this encounterBl[facility]09[facility] Instructions* Patient Instructions* Britney Chong APRN.CNP - 06/24/2022 10:15 AM EDT 1.) Start [...] or sooner as needed. documented in this encounterBlanchard Valley [facility]09[facility]29[facility] History of Present illness Narrative* Britney [...] the office for elevated blood pressure. At [employer] appointment about 1 month ago refers that BP was elevated. Last night didn't feel well. [place] like heart was pounding. Has been having [...] discussed and patient voices understanding. Britney Chong APRN.DEEPALI This note was partially generated using [employer] voice recognition system. Note was reviewed for accuracy. There may be minor misspellings or grammar miscues with [employer] voice recognition. documented in this encounterBlanchard Valley [facility]08-19[facility]2022 Miscellaneous Notes* Telephone Encounter - Lucina [...] back. Lucina Wang APRN.CNP documented in this encounterBlanchard Valley [facility]07[facility] Miscellaneous Notes* Letter - Mammography Coordinator - 04/23/2022 9:53 AM EDT April 23, 2022 PID: [id number] Mendoza Johnson [address] [place] [address] Dear Ms. Johnson, We are pleased to [...] report will be kept on file at [facility] as part of your permanent medical record and are available for your continuing care. Thank you for allowing us to help in meeting your health care needs. Sincerely, Dr. Liu Interpreting Radiologist [facility] (Normal over 40) documented in this encounterBlanchard Valley [facility]07-28-[facility] History of Present illness Narrative* RT Harshil(R) - 04/22/2022 2:50 PM EDT Radiology Service [...] IV DATA: Not applicable SIGNED BY: RT Harshil(Jacinto) April 22, 2022 2:46 PM documented in this encounterBlanchard [facility]07[facility]26[facility] History of Present illness Narrative* Lucina Wang APRN.[employer]OR [employer] - 04/20/2022 3:53 PM EDT Mendoza is [...] No Last Pap: normal 2018 HPV: negative 2018 History of abnormal pap: Yes - age 18 cryo, normal Pap Last mammogram: 2020 normal Sexually active: Yes Patient concerns for STD exposure: No. Time with current partner: 14 years Pain with intercourse: No Postcoital bleeding: No Hot flashes: Yes - generally feels hot Night sweats: No OB History T0 L2 SAB0 IAB0 Ectopic0 Multiple0 Live Births0 Batch Analyst History LMP: 06/12/2021 (Exact Date), Having periods Age at Menarche: Age at First : Age at Menopause: Batch Analyst History Comments: Sexual Activity: Yes; Male Contraception: [...] external genitalia normal, normal Bartholin's glands, urethra, [place]'s glands, no vulvar lesions, no cervical lesions, [...] needed Lucina Wang APRN.CNP documented in this encounterBlanchard Valley [facility]06-08-[facility]22 Miscellaneous Notes* Telephone Encounter - Eliz Reyna APRN.CNM - 03/03/2022 1:03 PM EDT Prescription ordered. Eliz Reyna APRN.CNM * Telephone Encounter - Jayne Maradiaga RN - 03/03/2022 8:51 AM EDT Please review in AG's absence. Thank you. documented in this encounterBlanchard Valley [facility]09-24-2021 NoteHNO ID: [id number] Author: Eliane Mo MD Service: ? Author Type: Physician Type: Progress Notes Filed: 06/19/2021 12:21 PM Note Text: VIRTUAL VISIT PROGRESS NOTE This is a virtual visit using [employer] video visit. It required patient-provider interaction for [...] CRITERIA. (J Am Col (more content not included)...[facility]08-03-2021 NoteHNO ID: [id number] Author: RT Iain(R) Service: Radiology Author Type: [place] Type: Progress Notes Filed: 04/28/2021 11:25 AM [...] PERIPHERAL IV DATA: Not applicable SIGNED BY: Mae Michelle, RT(R) April 28, 2021 11:25 [facility]08-03-2021 NoteHNO ID: [id number] Author: Eliane Mo MD Service: ? Author [...] symptoms TMJ pain? Shoulder pain. Had injection, 2019 saw ortho. Helped. PT did not help. 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* Diagnosis Encounter for gynecological examination with abnormal finding- Primary Routine gynecological examination Menorrhagia with irregular cycle Excessive or frequent menstruation Vaginal yeast infection Candidiasis of vulva and vagina Encounter for screening mammogram for breast cancer [facility]* Diagnosis Encounter for screening mammogram for breast cancer [facility]* Diagnosis Excessive bleeding in premenopausal period- Primary Premenopausal menorrhagia [facility] Diagnosis Excessive bleeding in premenopausal period- Primary Premenopausal menorrhagia [facility] Diagnosis Hypertension, essential- Primary Unspecified essential hypertension documented in this encounter [facility]* Diagnosis Hypertension, essential Unspecified essential hypertension documented in this encounter [facility]* Diagnosis Well adult exam- Primary Routine general medical examination at a health care facility Hypertension, essential Unspecified essential hypertension Dyslipidemia Other and unspecified hyperlipidemia Encounter for screening for diabetes mellitus Screening for diabetes mellitus 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 Arthropathy, unspecified, site unspecified 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) documented in this encounter [facility]* Diagnosis Encounter for IUD insertion- Primary Encounter for insertion of intrauterine contraceptive device Menorrhagia with irregular cycle Excessive or frequent menstruation Dysmenorrhea documented in this [facility]* Diagnosis Neck pain on right side- Primary Cervicalgia documented in this encounter [facility]* Diagnosis Mild episode of recurrent major depressive disorder (HCC)- Primary Hypertension, essential Unspecified essential hypertension Encounter for immunization Need for other specified prophylactic vaccination against single bacterial disease documented in this encounter [facility]* Diagnosis IUD check up- Primary Surveillance of previously prescribed intrauterine contraceptive device documented in this encounter [facility]* Diagnosis Parotitis, acute- Primary Sialoadenitis documented in this encounter [facility] noteNo assessment information availableWHighland District Hospital Work Phone: Evaluation note* Diagnosis Hypertension, essential Unspecified essential hypertension [facility]* Diagnosis Encounter for screening mammogram for breast cancer [facility]* Diagnosis Pain- Primary Generalized pain documented in this encounter [facility]* Diagnosis Calcific tendonitis- Primary Calcium deposits in tendon and bursa [facility]* Diagnosis Pain Generalized pain [facility]* Diagnosis Calcific tendinitis of right shoulder- Primary Calcifying tendinitis of shoulder [facility]* Diagnosis Calcific tendonitis Calcium deposits in tendon and bursa [facility]* Diagnosis Calcific tendinitis of right shoulder- Primary Calcifying tendinitis of shoulder documented in this encounter [facility]* Diagnosis Calcific tendinitis of right shoulder- Primary Calcifying tendinitis of shoulder documented in this encounter [facility]* Diagnosis Calcific tendinitis of right shoulder- Primary Calcifying tendinitis of shoulder documented in this encounter [facility]* Diagnosis Calcific tendinitis of right shoulder- Primary Calcifying tendinitis of shoulder documented in this encounter [facility]* Diagnosis Calcific tendinitis of right shoulder- Primary Calcifying tendinitis of shoulder documented in this encounter [facility]* Diagnosis Calcific tendinitis of right shoulder- Primary Calcifying tendinitis of shoulder documented in this encounter [facility]* Diagnosis Acute cough documented in this encounter [facility] for referral (narrative)* Diagnostic Procedure Only (Routine) - Authorized Specialty Diagnoses / Procedures Referred By Antwon martínez Referred To Contact [facility] Diagnoses Menorrhagia with irregular cycle Procedures PELVIC US WHI US PELVIC NONOBSTETRIC REAL-TIME IMAGE COMPLETE Lucina Wang APRN.DIRECTOR [employer] [address] [place] [address] [facility] [address] [place] [id number] Referral ID Status Reason Start Date Expiration Date Visits Requested Visits Authorized [id number] Authorized Auto-Generat ed Referral 04/20/2022 04/20/2023 1 1 * Diagnostic Procedure Only (Routine) - Pending Review Specialty Diagnoses / Procedures Referred By Antwon martínez Referred To Contact [facility] Diagnoses Encounter for screening mammogram for breast cancer Procedures MARCELA SCREENING SCREENING MAMMOGRAPHY BI 2-VIEW BREAST INC CAD Lucina Wang APRN.CNP [address] [place] [address] [facility] [address] [place] [phone] Referral ID Status Reason Start Date Expiration Date Visits Requested Visits Authorized [id number] Pending Review Auto-Generat ed Referral 04/20/2022 05/20/2023 1 1 [facility] for referral (narrative)* Diagnostic Procedure Only (Routine) - Closed Specialty Diagnoses / Procedures Referred By Antwon martínez Referred To Contact [facility] Diagnoses Encounter for screening mammogram for breast cancer Procedures MARCELA SCREENING SCREENING MAMMOGRAPHY BI 2-VIEW BREAST INC CAD Yang Nieves MD [address] [place] [address] [facility] [address] [place] [address] Referral ID Status Reason Start Date Expiration Date V isits Requested Visits Authorized [id number] Closed Auto-Generate d Referral 11/18/2021 12/18/2022 1 1 [facility] for referral (narrative)* Outpatient Procedure (Routine) - Pending Review Specialty Diagnoses / Procedures Referred By Antwon martínez Referred To Contact [facility] Diagnoses Excessive bleeding in premenopausal period Procedures ENDOMETRIAL BIOPSY ENDOMETRIAL BX W/WO ENDOCERVIX BX W/O DILAT SPX Lucina Wang APRN.[employer]OR [employer] [address] [place] [address] [facility] [place] [address] [place] [phone] Referral ID Status Reason Start Date Expiration Date Visits Requested Visits Authorized [id number] Pending Review Auto-Generat ed Referral 05/14/2022 05/14/2023 1 1 * Outpatient Procedure (Routine) - Pending Review Specialty Diagnoses / Procedures Referred By Antwon martínez Referred To Contact [facility] Diagnoses Excessive bleeding in premenopausal period Procedures INSERT INTRAUTERINE DEVICE LEVONORGESTREL IU 52MG 5 YR INSERT INTRAUTERINE DEVICE Lucina Wang APRN.CNP [address] [place] [address] [facility] [place] [address] [place] [address] Referral ID Status Reason Start Date Expiration Date Visits Requested Visits Authorized [id number] Pending Review Auto-Generat ed Referral 05/14/2022 05/14/2023 1 1 [facility] for referral (narrative)* Diagnostic Procedure Only (Routine) - Pending Review Specialty Diagnoses / Procedures Referred By Contac t Referred To Contact [facility] Diagnoses Encounter for screening mammogram for breast cancer Procedures MARCELA SCREENING SCREENING MAMMOGRAPHY BI 2-VIEW BREAST INC CAD Yang Nieves MD [address] [place] [address] [facility] [address] [place] [address] Referral ID Status Reason Start Date Expiration Date Visits Requested Visits Authorized [id number] Pending Review Auto-Generat ed Referral 05/25/2023 06/23/2024 1 1 [facility] for referral (narrative)* Diagnostic Procedure Only (Routine) - Authorized Specialty Diagnoses / Procedures Referred By Contac t Referred To Contact [facility] Diagnoses Pain Procedures XR SHOULDER GENERAL 3V OR MORE AP/TRUE AP/OTHER RIGHT RADEX SHOULDER COMPLETE MINIMUM 2 VIEWS Benjamin Gagnon MD [address] [place] [address] [place] [address] Referral ID Status Reason Start Date Expiration Date Visits Requested Visits Authorized [id number] Authorized Auto-Generat ed Referral 02/06/2024 03/07/2025 1 1 T [facility] for referral (narrative)* Diagnostic Procedure Only (Urgent) - Authorized Specialty Diagnoses / Procedures Referred By Contac t Referred To Contact [facility] Diagnoses Calcific tendonitis Procedures US SHOULDER RIGHT US COMPL JOINT R-T W/IMAGE DOCUMENTATION Benjamin Gagnon MD [address] [place] [address] [place] [address] Referral ID Status Reason Start Date Expiration Date Visits Requested Visits Authorized [id number] Authorized Auto-Generat ed Referral 02/08/2024 03/09/2025 1 1 [facility] for referral (narrative)* Diagnostic Procedure Only (Urgent) - Closed Specialty Diagnoses / Procedures Referred By Contac t Referred To Contact [facility] Diagnoses Calcific tendonitis Procedures US SHOULDER RIGHT US COMPL JOINT R-T W/IMAGE DOCUMENTATION Benjamin Gagnon MD [address] [place] [address] [place] [address] Referral ID Status Reason Start Date Expiration Date V isits Requested Visits Authorized [id number] Closed Auto-Generate d Referral 02/08/2024 03/09/2025 1 1 [facility] for referral (narrative)No reason for referral information availableNeurodiagnostic Institute Services Work Phone: Reason for visit Narrative* Diagnostic Procedure Only (Routine) - Closed Specialty Diagnoses / Procedures Referred By Contac t Referred To Contact [facility] Diagnoses Encounter for screening mammogram for breast cancer Procedures MARCELA SCREENING SCREENING MAMMOGRAPHY BI 2-VIEW BREAST INC CAD Yang Nieves MD [address] [place] [address] [facility] [address] [place] [address] Referral ID Status Reason Start Date Expiration Date V isits Requested Visits Authorized [id number] Closed Auto-Generate d Referral 11/18/2021 12/18/2022 1 1 [facility] for visit Narrative* Diagnostic Procedure Only (Urgent) - Closed Specialty Diagnoses / Procedures Referred By Contac t Referred To Contact [facility] Diagnoses Calcific tendonitis Procedures US SHOULDER RIGHT US COMPL JOINT R-T W/IMAGE DOCUMENTATION Benjamin Gagnon MD [address] [place] [address] [place] [address] Referral ID Status Reason Start Date Expiration Date V isits Requested Visits Authorized [id number] Closed Auto-Generate d Referral 02/08/2024 03/09/2025 1 1 [facility] Summary Purpose Family History No Family History Records FoundNo Family History Records FoundNo Family History Records Found Advance Directives No Advanced Directives Records Found Advance Directive Response Recorded Date/ Time Advance Directives No May 12:55am Living Will No April 14, 2017 1:40pm Power of Policyholder Information Clerk No April 14 7 1:40pm Advance Directive Response Recorded Date/ Time Advance Directives No May 12:55am Living Will No April 28, 2023 6:43am Power of Policyholder Information Clerk No April 28 6:43am Advance Directive Response Recorded Date/ Time Advance Directives No May 11:55pm Living Will No August 24, 023 8:54pm Power of Policyholder Information Clerk No August 24, 2023 8:54pm Advance Directive Response Recorded Date/ Time Advance Directives No May 12:55am Reason for Referral Specialty Diagnoses / Procedures Referred By Contsloane t Referred To Contact Gastroenterology Diagnoses 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) Procedures CONSULT TO GASTROENTEROLOGY OFFICE/OUTPATIENT [facility] 60-74 MINUTES Cyn Berry PA-C [address] [place] [address] Referral ID Status Reason Start Date Expiration Date Visits Requested Visits Authorized [id number] Authorized PCP Requested Referral 07/27/2022 07/27/2023 1 [...] am Diarrhea April 15, 2025 8:32 am Chief Complaint Admit Date Rash January 07, 2025 6:5 4am ABDOMINAL DISCOMFORT April 15, 2025 8:3 2am INT LABS May 02, 2025 7:1 3am Additional Source Comments INFORMATION SOURCE (unrecogn ized section and content) DATE CREATED AUTHOR 12/15/2021 [facility] DATE CREATED AUTHOR AUTHOR'S ORGANIZ ATION 06/16/2024 [facility] DATE CREATED AUTHOR AUTHOR'S ORGANIZ ATION 05/08/2025 [facility] Source Comments (unrecognize d section and content) In the event this informatio n is protected by the Federal Confidentiality of Alcohol and Drug Abuse Patient Records regulations: The Federal rules restrict any use of the information to criminally investigate or prosecute any alcohol or drug abuse patient.[facility] the event this information is protected by the Federal Confidentiality of Alcohol and Drug Abuse Patient Records regulations: The Federal rules restrict any use of the information to criminally investigate or prosecute any alcohol or drug abuse patient.[facility]In the event this information is protected by the Federal Confidentiality of Alcohol and Drug Abuse Patient Records regulations: The Federal rules restrict any use of the information to criminally investigate or prosecute any alcohol or drug abuse patient.[facility] the event this information is protected by the Federal Confidentiality of Alcohol and Drug Abuse Patient Records regulations: The Federal rules restrict any use of the information to criminally investigate or prosecute any alcohol or drug abuse patient.[facility] the event this information is protected by the Federal Confidentiality of Alcohol and Drug Abuse Patient Records regulations: The Federal rules restrict any use of the information to criminally investigate or prosecute any alcohol or drug abuse patient.[facility] the event this information is protected by the Federal Confidentiality of Alcohol and Drug Abuse Patient Records regulations: The Federal rules restrict any use of the information to criminally investigate or prosecute any alcohol or drug abuse patient.[facility] the event this information is protected by the Federal Confidentiality of Alcohol and Drug Abuse Patient Records regulations: The Federal rules restrict any use of the information to criminally investigate or prosecute any alcohol or drug abuse patient.[facility] the event this information is protected by the Federal Confidentiality of Alcohol and Drug Abuse Patient Records regulations: The Federal rules restrict any use of the information to criminally investigate or prosecute any alcohol or drug abuse patient.[facility] the event this information is protected by the Federal Confidentiality of Alcohol and Drug Abuse Patient Records regulations: The Federal rules restrict any use of the information to criminally investigate or prosecute any alcohol or drug abuse patient.[facility]In the event this information is protected by the Federal Confidentiality of Alcohol and Drug Abuse Patient Records regulations: The Federal rules restrict any use of the information to criminally investigate or prosecute any alcohol or drug abuse patient.[facility] the event this information is protected by the Federal Confidentiality of Alcohol and Drug Abuse Patient Records regulations: The Federal rules restrict any use of the information to criminally investigate or prosecute any alcohol or drug abuse patient.[facility] the event this information is protected by the Federal Confidentiality of Alcohol and Drug Abuse Patient Records regulations: The Federal rules restrict any use of the information to criminally investigate or prosecute any alcohol or drug abuse patient.[facility] the event this information is protected by the Federal Confidentiality of Alcohol and Drug Abuse Patient Records regulations: The Federal rules restrict any use of the information to criminally investigate or prosecute any alcohol or drug abuse patient.[facility] the event this information is protected by the Federal Confidentiality of Alcohol and Drug Abuse Patient Records regulations: The Federal rules restrict any use of the information to criminally investigate or prosecute any alcohol or drug abuse patient.[facility] the event this information is protected by the Federal Confidentiality of Alcohol and Drug Abuse Patient Records regulations: The Federal rules restrict any use of the information to criminally investigate or prosecute any alcohol or drug abuse patient.[facility]In the event this information is protected by the Federal Confidentiality of Alcohol and Drug Abuse Patient Records regulations: The Federal rules restrict any use of the information to criminally investigate or prosecute any alcohol or drug abuse patient.[facility]In the event this information is protected by the Federal Confidentiality of Alcohol and Drug Abuse Patient Records regulations: The Federal rules restrict any use of the information to criminally investigate or prosecute any alcohol or drug abuse patient.[facility] the event this information is protected by the Federal Confidentiality of Alcohol and Drug Abuse Patient Records regulations: The Federal rules restrict any use of the information to criminally investigate or prosecute any alcohol or drug abuse patient.[facility] the event this information is protected by the Federal Confidentiality of Alcohol and Drug Abuse Patient Records regulations: The Federal rules restrict any use of the information to criminally investigate or prosecute any alcohol or drug abuse patient.[facility]In the event this information is protected by the Federal Confidentiality of Alcohol and Drug Abuse Patient Records regulations: The Federal rules restrict any use of the information to criminally investigate or prosecute any alcohol or drug abuse patient.[facility]In the event this information is protected by the Federal Confidentiality of Alcohol and Drug Abuse Patient Records regulations: The Federal rules restrict any use of the information to criminally investigate or prosecute any alcohol or drug abuse patient.[facility]In the event this information is protected by the Federal Confidentiality of Alcohol and Drug Abuse Patient Records regulations: The Federal rules restrict any use of the information to criminally investigate or prosecute any alcohol or drug abuse patient.[facility] HospitalIn the event this information is protected by the Federal Confidentiality of Alcohol and Drug Abuse Patient Records regulations: The Federal rules restrict any use of the information to criminally investigate or prosecute any alcohol or drug abuse patient.[facility]In the event this information is protected by the Federal Confidentiality of Alcohol and Drug Abuse Patient Records regulations: The Federal rules restrict any use of the information to criminally investigate or prosecute any alcohol or drug abuse patient.[facility] HospitalIn the event this information is protected by the Federal Confidentiality of Alcohol and Drug Abuse Patient Records regulations: The Federal rules restrict any use of the information to criminally investigate or prosecute any alcohol or drug abuse patient.[facility] HospitalIn the event this information is protected by the Federal Confidentiality of Alcohol and Drug Abuse Patient Records regulations: The Federal rules restrict any use of the information to criminally investigate or prosecute any alcohol or drug abuse patient.[facility] HospitalIn the event this information is protected by the Federal Confidentiality of Alcohol and Drug Abuse Patient Records regulations: The Federal rules restrict any use of the information to criminally investigate or prosecute any alcohol or drug abuse patient.[facility] HospitalIn the event this information is protected by the Federal Confidentiality of Alcohol and Drug Abuse Patient Records regulations: The Federal rules restrict any use of the information to criminally investigate or prosecute any alcohol or drug abuse patient.[facility] HospitalIn the event this information is protected by the Federal Confidentiality of Alcohol and Drug Abuse Patient Records regulations: The Federal rules restrict any use of the information to criminally investigate or prosecute any alcohol or drug abuse patient.[facility] HospitalIn the event this information is protected by the Federal Confidentiality of Alcohol and Drug Abuse Patient Records regulations: The Federal rules restrict any use of the information to criminally investigate or prosecute any alcohol or drug abuse patient.[facility] HospitalIn the event this information is protected by the Federal Confidentiality of Alcohol and Drug Abuse Patient Records regulations: The Federal rules restrict any use of the information to criminally investigate or prosecute any alcohol or drug abuse patient.[facility] HospitalIn the event this information is protected by the Federal Confidentiality of Alcohol and Drug Abuse Patient Records regulations: The Federal rules restrict any use of the information to criminally investigate or prosecute any alcohol or drug abuse patient.[facility] HospitalIn the event this information is protected by the Federal Confidentiality of Alcohol and Drug Abuse Patient Records regulations: The Federal rules restrict any use of the information to criminally investigate or prosecute any alcohol or drug abuse patient.[facility] HospitalIn the event this information is protected by the Federal Confidentiality of Alcohol and Drug Abuse Patient Records regulations: The Federal rules restrict any use of the information to criminally investigate or prosecute any alcohol or drug abuse patient.[facility] HospitalIn the event this information is protected by the Federal Confidentiality of Alcohol and Drug Abuse Patient Records regulations: The Federal rules restrict any use of the information to criminally investigate or prosecute any alcohol or drug abuse patient.[facility] HospitalIn the event this information is protected by the Federal Confidentiality of Alcohol and Drug Abuse Patient Records regulations: The Federal rules restrict any use of the information to criminally investigate or prosecute any alcohol or drug abuse patient.[facility] HospitalIn the event this information is protected by the Federal Confidentiality of Alcohol and Drug Abuse Patient Records regulations: The Federal rules restrict any use of the information to criminally investigate or prosecute any alcohol or drug abuse patient.[facility] HospitalIn the event this information is protected by the Federal Confidentiality of Alcohol and Drug Abuse Patient Records regulations: The Federal rules restrict any use of the information to criminally investigate or prosecute any alcohol or drug abuse patient.[facility] HospitalIn the event this information is protected by the Federal Confidentiality of Alcohol and Drug Abuse Patient Records regulations: The Federal rules restrict any use of the information to criminally investigate or prosecute any alcohol or drug abuse patient.[facility] HospitalIn the event this information is protected by the Federal Confidentiality of Alcohol and Drug Abuse Patient Records regulations: The Federal rules restrict any use of the information to criminally investigate or prosecute any alcohol or drug abuse patient.[facility] HospitalIn the event this information is protected by the Federal Confidentiality of Alcohol and Drug Abuse Patient Records regulations: The Federal rules restrict any use of the information to criminally investigate or prosecute any alcohol or drug abuse patient.[facility] HospitalIn the event this information is protected by the Federal Confidentiality of Alcohol and Drug Abuse Patient Records regulations: The Federal rules restrict any use of the information to criminally investigate or prosecute any alcohol or drug abuse patient.[facility] Care Teams (unrecognized sec tion and content) Resin Remover Relationship Specialty Start Date End Date Yang Nieves MD [facility] [place] [address] PCP - General Family Practice 03/13/16 Resin Remover Relationship Specialty Start Date End Date Yang Nieves MD [address] [place] [address] PCP - General Family Practice 03/13/16 Resin Remover Relationship Specialty Start Date End Date Yang Nieves MD [address] [place] [address] PCP - General Family Practice 03/13/16 Resin Remover Relationship Specialty Start Date End Date Yang Nieves MD [address] [place] [address] [place] [address] PCP - General Family Practice 03/13/16 Resin Remover Relationship Specialty Start Date End Date Yang Nieves MD [address] [place] [address] PCP - General Family Practice 03/13/16 Resin Remover Relationship Specialty Start Date End Date Yang Nieves MD [address] [place] [address] [place] [address] PCP - General Family Practice 03/13/16 Resin Remover Relationship Specialty Start Date End Date Yang Nieves MD [address] [place] [address] PCP - General Family Practice 03/13/16 Resin Remover Relationship Specialty Start Date End Date Yang Nieves MD [address] [facility] [place] [address] PCP - General Family Medicine 03/13/16 Resin Remover Relationship Specialty Start Date End Date Yang Nieves MD [address] [facility] [place] [address] PCP - General Family Medicine 03/13/16 Resin Remover Relationship Specialty Start Date End Date Yang Nieves MD [facility] [place] [address] PCP - General Family Medicine 03/13/16 Resin Remover Relationship Specialty Start Date End Date Yang Nieves MD [address] [place] [address], [place] [address] PCP - General Family Medicine 03/13/16 Resin Remover Relationship Specialty Start Date End Date Yang Nieves MD [address] [place] [address], [place] [address] PCP - General Family Medicine 03/13/16 Resin Remover Relationship Specialty Start Date End Date Yang Nieves MD [facility] [place] [address] PCP - General Family Medicine 03/13/16 Resin Remover Relationship Specialty Start Date End Date Yang Nieves MD [facility] [place] [address] PCP - General Family Medicine 03/13/16 Resin Remover Relationship Specialty Start Date End Date Yang Nieves MD [facility] [place] [address] PCP - General Family Medicine 03/13/16 Resin Remover Relationship Specialty Start Date End Date Yang Nieves MD [facility] [place] [address] PCP - General Family Medicine 03/13/16 Resin Remover Relationship Specialty Start Date End Date Yang Nieves MD [address] [place] [address] PCP - General Family Medicine 03/13/16 Resin Remover Relationship Specialty Start Date End Date Yang Nieves MD [address] [place] [address] PCP - General Family Medicine 03/13/16 Team [...] Velazquez DO Primary Care Provider Active Dr. oB Young MD Emergency Provider Active Resin Remover Relationship Specialty Start Date End Date Yang Nieves MD [address] [place] [address] PCP - General Family Medicine 03/13/16 Team Status: Inactive Member Role Status Dates Dr. Trent Velazquez DO Primary Care Provider Active Dr. Bo Young MD Attending Provider, Emergency Provi mila Active Team Status: Inactive Member Role Status Dates Dr. Trent Velazquez DO Primary Care Provider Active Dr. Griselda Stewart DO Emergency Provider Active Resin Remover Relationship Specialty Start Date End Date Trent Velazquez DO [address] [place] [address] PCP - General Family Medicine 12/22/23 Resin Remover Relationship Specialty Start Date End Date Trent Velazquez DO [address] [place], [place] [id number] PCP - General Family Medicine 12/22/23 Resin Remover Relationship Specialty Start Date End Date Labor, Trent Martínez DO [address] [place] [address] PCP - General Family Medicine 12/22/23 Resin Remover Relationship Specialty Start Date End Date Labor, Trent Martínez DO [address] [place] [address] PCP - General Family Medicine 12/22/23 Resin Remover Relationship Specialty Start Date End Date Labor, Trent Martínez DO [address] [place] [address] PCP - General Family Medicine 12/22/23 Resin Remover Relationship Specialty Start Date End Date Labor, Trent Martínez DO [address] [place] [address] PCP - General Family Medicine 12/22/23 Resin Remover Relationship Specialty Start Date End Date Labor, Trent Martínez DO [address] [place] [address] PCP - General Family Medicine 12/22/23 Resin Remover Relationship Specialty Start Date End Date Labor, Trent Martínez DO [address] [place] [address] PCP - General Family Medicine 12/22/23 Resin Remover Relationship Specialty Start Date End Date Labor, Trent Martínez DO [address] [place] [address] PCP - General Family Medicine 12/22/23 Resin Remover Relationship Specialty Start Date End Date Labor, Trent Martínez DO [address] [place] [address] PCP - General Family Medicine 12/22/23 Resin Remover Relationship Specialty Start Date End Date Trent Velazquez [address] [place] [address] PCP - General Family Medicine 12/22/23 Resin Remover Relationship Specialty Start Date End Date Trent Velazquez [address] [place] [address] PCP - General Family Medicine 12/22/23 Resin Remover Relationship Specialty Start Date End Date Trent Velazquez [address] [place] [address] PCP - General Family Medicine 12/22/23 Resin Remover Relationship Specialty Start Date End Date Marcus Trent TDO [address] [place] [address] PCP - General Family Medicine 12/22/23 Resin Remover Relationship Specialty Start Date End Date Yang Nieves MD [address] [place] [address] PCP - General Family Medicine 03/13/16 12/21/23 [...] April 15, 2025 End: April 15, 2025 Team Status: Active Member Role/Relationship Status Dates Dr. Trent Velazquez DO Primary Care Provider Active Team Status: Inactive Member Role/Relationship Status Dates Dr. Trent Velazquez DO Primary Care Provider Active Start: May 02, 2025 End: May 02, 2025 Dr. Axel Castaneda DO Attending Provider Active Start: May 02, 2025 End: May 02, 2025 Dr. Axel Castaneda DO Referring Provider Active Start: May 02, 2025 End: May 02, 2025 Reason for Visit (unrecogniz ed section and content) Reason Comments PT Discharge Specialty Diagnoses / Procedures Referred By Antwon martínez Referred To Contact [facility] Diagnoses Calcific tendinitis of right shoulder Procedures CONSULT TO PHYSICAL THERAPY PHYSICAL THERAPY EVALUATION HIGH COMPLEX 45 MINS Chey Plata, DO [address] [place] [address] [address] Referral ID Status Reason Start Date Expiration Date Visits Requested Visits Authorized [id number] Authorized Auto-Generat ed Referral 09/26/2023 09/25/2024 40 40 Reason Comments Physical Therapy Reason Comments PT Progress Note Reason Comments Well 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 Reason Comments Results Orders New Medication Reason Comments Acute Visit Elevated BP Reason Comments Refill Request Reason Comments Yearly Exam Reason Comments Request Outside Medical Records Reason Comments Results Reason Onset Date Comments Insertion Of IUD 08/05/2022 Specialty Diagnoses / Procedures Referred By Antwon martínez Referred To Contact [facility] Diagnoses Excessive bleeding in premenopausal period Encounter for insertion of intrauterine contraceptive device Encounter for removal of intrauterine contraceptive device Procedures INSERT INTRAUTERINE DEVICE LEVONORGESTREL IU 52MG 5 YR INSERT INTRAUTERINE DEVICE REMOVE INTRAUTERINE DEVICE Lucina Wang APRN.[employer] [address] [place] [address] [address] Referral ID Status Reason Start Date Expiration Date Visits Requested Visits Authorized [id number] Authorized Auto-Generat ed Referral 05/24/2022 09/25/2022 2 2 Reason Comments Recheck Reason Comments iud check 4 week follow up Reason Comments jaw pain X 5 days Reason Onset Date Comments Refill Request 03/10/2023 Reason Comments New Pain Reason Comments Appointment with Dr. Plata or Dr. Fregoso Reason Comments Appointment Reason Comments Radio Gen RMP Specialty Diagnoses / Procedures Referred By Contac t Referred To Contact XR IMAGING Diagnoses Pain Procedures XR SHOULDER GENERAL 3V OR MORE AP/TRUE AP/OTHER RIGHT RADEX SHOULDER COMPLETE MINIMUM 2 VIEWS Benjamin Gagnon MD [address] [place] [address] [place] [address] Referral ID Status Reason Start Date Expiration Date V isits Requested Visits Authorized [id number] Closed Auto-Generate d Referral 02/06/2024 03/07/2025 1 1 Reason Comments New Pain (Shoulder Pain) Reason Comments Medication Question Specialty Diagnoses / Procedures Referred By Contac t Referred To Contact Orthopedics / ORTHOPAEDIC SURGERY Diagnoses Calcific tendinitis of right shoulder (M75.31) Calcific tendinitis of right shoulder Procedures US GUIDANCE NEEDLE PLACEMENT IMG S&I TENOTOMY SHOULDER AREA 1 TENDON TENOTOMY WITH ULTRASOUND GUIDE - RIGHT SHOULDER Chey Plata, DO [address] [place] [address] Chey Plata, DO [address] [place] [address] Referral ID Status Reason Start Date Expiration Date Visits Re quested Visits Authorized [id number] Closed 03/05/2024 09/25/2024 1 1 Reason Comments [...] BE BASED ON THE PRIMARY CLINICAL RECORDS. [facility]. provides no warranty or guarantee of the accuracy or completeness of information in this document.
[2025-05-13 01:07] LABS: Pancreatic Elastase, Fecal > 800 (>200)
[2025-05-13 09:08] LABS: Calprotectin, Stool 18 ug/g (0-120); Fats, Neutral Normal (.); Fats, Total Normal (.)
== END | disposition home or self-care (01) ==
PROVIDERS: PCP Family Medicine; Referring Provider Internal Medicine Gastroenterology; Visit Provider Internal Medicine Gastroenterology
DX: K58.9 Irritable bowel syndrome, unspecified (principal); R19.7 Diarrhea, unspecified; R14.0 Abdominal distension (gaseous)
CPT/HCPCS: 82653; 82705; 83630; 83993; 87177; 87209; 87329; 87493; 87506

== ENCOUNTER 2025-05-09 06:03 | Day surgery (SDC) | payer OTHER, SELFPAY ==
--- NOTE | 2025-05-08 10:12 | PAT.ANESEVAL ---
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 When Was Last Pacemaker Check QUESTION #4 FULL TEXT: You/Your Family Experience fever (hyperthermia) with Anesthesia Last Oral Intake Last Oral intake: Last Oral Intake NPO since Meds taken in AM with sips of water? Meds patient instructed to take am of surgery PONV PONV - merchandise execution leader: PONV - merchandise execution leader Female Yes 05/08/25 08:39 HX of Motion Sickness No 05/08/25 08:39 HX of N/V After Surgery No 05/08/25 08:39 Non-Smoker Yes 05/08/25 08:39 Duration of Surgery greater No 05/08/25 08:39 than 60 minutes Number of Risk Factors 2 05/08/25 08:39 PONV Score Moderate Risk 05/08/25 08:39 Height & Weight Height & Weight: Anesthesia: Height & Weight Height 5 ft 6.5 in 01/07/25 06:54 Respiratory Assessment Respiratory Assessment - merchandise execution leader: Respiratory Tract Infection Hx - merchandise execution leader Hx Respiratory Tract Infection No 05/08/25 08:39 STOP Sleep Apnea STOP Sleep Apnea - merchandise execution leader: STOP Sleep Apnea - merchandise execution leader Hx Hypertension No 05/08/25 08:39 Hx Sleep Apnea Yes 05/08/25 08:39 CPAP Yes 05/08/25 08:39 BIPAP No 05/08/25 08:39 Do you snore loudly (louder No 05/08/25 08:39 than talking or can be heard Do you often feel tired/ No 05/08/25 08:39 fatigued/ sleepy during daytime? Has anyone observed you stop No 05/08/25 08:39 breathing during sleep? STOP Results Positive 05/08/25 08:39 QUESTION #5 FULL TEXT : Do you snore loudly (louder than talking or can be heard through closed doors)? 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 Specify any problems Hx of Preganancy in last 3 No 05/08/25 08:39 Months Nurse Filling Out Transfusion VCHRISTIN 05/08/25 08:39 & Questions: Date: 05/08/25 05/08/25 08:39 Time: 08:40 05/08/25 08:39 Patient unable to answer at this time (ie. confused, unrespo /Reproduction History /Reproductive History - merchandise execution leader: /Reproductive Hx- merchandise execution leader Hx Now No 05/08/25 08:39 Gestational Age (in weeks): EDC: Hx Hx Para Hx Section SAB No 05/08/25 08:39 [facility] Medical History (Updated 05/08/25 @ 08:39 by Bel Jacome) Wears contact lenses Wears glasses Anxiety Depression Alcohol use Thyroid disease Back pain Gastric reflux Non-smoker CPAP (continuous positive airway pressure) dependence Sleep apnea Arthritis IBS (irritable bowel syndrome) History of palpitations Allergic dermatitis Hypothyroidism Osteoporosis Hypertension Home Medications ?Medication ?Instructions ?Recorded ?Last Taken ?Type escitalopram oxalate 10 mg tablet 10 mg PO DAILY 04/28/23 Unknown History lisinopril 20 mg tablet 20 mg PO DAILY 04/28/23 Unknown History Lactobacillus acidophilus 10 100 mmu cells PO DAILY 05/08/25 Unknown History billion cell capsule ([employer]) cetirizine 10 mg tablet (24Hour 10 mg PO DAILY 05/08/25 Unknown History Allergy) thyroid (pork) 60 mg tablet 60 mg PO DAILY 05/08/25 Unknown History ([place] Thyroid) Allergy/AdvReac Type Severity Reaction Status Date / Time No Known Allergies Allergy Verified 05/08/25 08:33 Surgical History (Updated 05/08/25 @ 08:39 by Bel Jacome) Hx of colonoscopy Hx of tonsillectomy History of appendectomy Social History household members: spouse Smoking Status: Never smoker alcohol intake: current alcohol intake frequency: holidays/special occasions only substance use type: does not use Audit: Pertinent Findings Pertinent Findings EKG Perinent findings: EKG 04/28/2025. Sinus rhythm with occasional PVC Recommendation Anesthesia Recommendation Anesthesia recommendation: OPTIMIZED for anesthesia
[2025-05-09] VITALS (8 sets, daily range): BP systolic 115–130; BP diastolic 72–81; PULSE 57–76; RESP 16; TEMP 36.1–36.4; O2SAT 96–99; BMI 36.6
--- OUTSIDE RECORDS SUMMARY | 2025-05-09 06:07 | XMS RPT_ITS | CCD ---
Author Organization [facility] Care Team Providers Care Hazardous Substances Scientist Name Role Phone Yang Nieves MD Primary Care Provider [phone] Labor DO, Trent T Primary Care Provider LABOR, TRENT T Primary [...] Labor DO, Dr. Serra Primary Care Provider [phone] Labor DO, Dr. Serra Referring Provider Rojelio Chase Attending Provider Friend DO, Dr. Reyna Attending Provider Friend [...] pollen Substance Allergy 0 Other: See Comments [facility] Work Phone: (20 sources) Tree and shrub pollen; Translations: [TREE AND SHRUB POLLEN] Drug Allergy 0 Other: See Comments [facility] Work Phone: Medications Current Medications Medication Drug [...] Comment on above: Take 1 tablet by [facility] three times daily for 7 days. Completed/Discontinued [...] 03-09-2024 keTORolac 60 mg injection (Toradol) levonorgestrel 0.765024 mg/hr intrauterine system (20 sources) Progestin, Progestin-containin [...] Comment on above: Take 1 tablet by [facility] twice daily as needed for [...] Test Name Value Interpretation Reference Range Facility [facility] ANTI-DNA (DS)AB <1 Normal 0-9 [facility] Comment on above: Result Comment: Nega tive <5 Equivocal 5 - 9 Positive >9 Performed By: #### L 501.6710, L501.42026, L501.9520, L503.0106, L503.6550, L504.2610, L5500.0550, L3100.5440, L101.9900, L100.0100, L500.4050, L506.0400, L501.2300, L501.5200 #### [facility] [address] [place], [place], [id number] ANTI-SS-A < 0.2 Normal 0.0-0.9 [facility] Comment on above: Performed By: #### L 501.6710, L501.96155, L501.9520, L503.0106, L503.6550, L504.2610, L5500.0550, L3100.5440, L101.9900, L100.0100, L500.4050, L506.0400, L501.2300, L501.5200 #### [facility] [address] [place], [place], [id number] (087) ANTI-SS-B < 0.2 Normal 0.0-0.9 [facility] Comment on above: Performed By: #### L 501.6710, L501.15388, L501.9520, L503.0106, L503.6550, L504.2610, L5500.0550, L3100.5440, L101.9900, L100.0100, L500.4050, L506.0400, L501.2300, L501.5200 #### [facility] [address] [place], [place], [id number] Allergen, Food Profile 14on 05-07-2025 BEEF <0.10 Normal Class 0 [facility] Comment on above: Performed By: #### L 501.6710, L501.10159, L501.9520, L503.0106, L503.6550, L504.2610, L5500.0550, L3100.5440, L101.9900, L100.0100, L500.4050, L506.0400, L501.2300, L501.5200 #### [facility] [address] [place], [place], [id number] (340) CHOCOLATE <0.10 Normal Class 0 [facility] Comment on above: Performed By: #### L 501.6710, L501.94904, L501.9520, L503.0106, L503.6550, L504.2610, L5500.0550, L3100.5440, L101.9900, L100.0100, L500.4050, L506.0400, L501.2300, L501.5200 #### [facility] [address] [place], [address] CODFISH <0.10 Normal Class 0 [facility] Comment on above: Performed By: #### L 501.6710, L501.85379, L501.9520, L503.0106, L503.6550, L504.2610, L5500.0550, L3100.5440, L101.9900, L100.0100, L500.4050, L506.0400, L501.2300, L501.5200 #### [facility] [address] [place], [address] COMMENT Comment Normal . [facility] Comment on above: Result Comment: Kate bowen of Specific IgE Class Description of Class ----- < 0.10 0 Negative 0.10 - 0.31 0/I Equivocal/Low 0.32 - 0.55 I Low 0.56 - 1.40 II Moderate 1.41 - 3.90 III High 3.91 - 19.00 IV Very High 19.01 - 100.00 V Very High >100.00 Very High Performed By: #### L 501.6710, L501.20612, L501.9520, L503.0106, L503.6550, L504.2610, L5500.0550, L3100.5440, L101.9900, L100.0100, L500.4050, L506.0400, L501.2300, L501.5200 #### [facility] [address] [place], [address] CORN <0.10 Normal Class 0 [facility] Comment on above: Performed By: #### L 501.6710, L501.56853, L501.9520, L503.0106, L503.6550, L504.2610, L5500.0550, L3100.5440, L101.9900, L100.0100, L500.4050, L506.0400, L501.2300, L501.5200 #### [facility] [address] [place], [address] EGG, WHOLE <0.10 Normal Class 0 [facility] Comment on above: Result Comment: Perf ormed at: [facility] [address] [id number] Motion Picture Narrator: Angel Campos PhD, Phone: [phone] Performed at: [facility] [address] [id number] Motion Picture Narrator: Davian Gudino MD, Phone: [phone] Performed By: #### L 501.6710, L501.17317, L501.9520, L503.0106, L503.6550, L504.2610, L5500.0550, L3100.5440, L101.9900, L100.0100, L500.4050, L506.0400, L501.2300, L501.5200 #### [facility] [address] [place], [place], [id number] MILK (COW) 0.12 kU/L Abnormal Class 0/I [facility] Comment on above: Performed By: #### L 501.6710, L501.76161, L501.9520, L503.0106, L503.6550, L504.2610, L5500.0550, L3100.5440, L101.9900, L100.0100, L500.4050, L506.0400, L501.2300, L501.5200 #### [facility] [address] [place], [place], [id number] MUSSELS <0.10 Normal Class 0 [facility] Comment on above: Performed By: #### L 501.6710, L501.56191, L501.9520, L503.0106, L503.6550, L504.2610, L5500.0550, L3100.5440, L101.9900, L100.0100, L500.4050, L506.0400, L501.2300, L501.5200 #### [facility] [address], [place], [id number] PEANUT <0.10 Normal Class 0 [facility] Comment on above: Performed By: #### L 501.6710, L501.74449, L501.9520, L503.0106, L503.6550, L504.2610, L5500.0550, L3100.5440, L101.9900, L100.0100, L500.4050, L506.0400, L501.2300, L501.5200 #### [facility] [place], [place], [id number] PORK <0.10 Normal Class 0 [facility] Comment on above: Performed By: #### L 501.6710, L501.26505, L501.9520, L503.0106, L503.6550, L504.2610, L5500.0550, L3100.5440, L101.9900, L100.0100, L500.4050, L506.0400, L501.2300, L501.5200 #### [facility] [address] [facility] [place], [place], [id number] SALMON <0.10 Normal Class 0 [facility] Comment on above: Performed By: #### L 501.6710, L501.41331, L501.9520, L503.0106, L503.6550, L504.2610, L5500.0550, L3100.5440, L101.9900, L100.0100, L500.4050, L506.0400, L501.2300, L501.5200 #### [facility] [address] [place], [place], [id number] SHRIMP 0.16 kU/L Abnormal Class 0/I [facility] Comment on above: Performed By: #### L 501.6710, L501.66391, L501.9520, L503.0106, L503.6550, L504.2610, L5500.0550, L3100.5440, L101.9900, L100.0100, L500.4050, L506.0400, L501.2300, L501.5200 #### [facility] [address] [place], [address] SOYBEAN <0.10 Normal Class 0 [facility] Comment on above: Performed By: #### L 501.6710, L501.76068, L501.9520, L503.0106, L503.6550, L504.2610, L5500.0550, L3100.5440, L101.9900, L100.0100, L500.4050, L506.0400, L501.2300, L501.5200 #### [facility] [address] [place], [place], [id number] TUNA <0.10 Normal Class 0 [facility] Comment on above: Performed By: #### L 501.6710, L501.44999, L501.9520, L503.0106, L503.6550, L504.2610, L5500.0550, L3100.5440, L101.9900, L100.0100, L500.4050, L506.0400, L501.2300, L501.5200 #### [facility] [address] [place], [address] WHEAT <0.10 Normal Class 0 [facility] Comment on above: Performed By: #### L 501.6710, L501.81422, L501.9520, L503.0106, L503.6550, L504.2610, L5500.0550, L3100.5440, L101.9900, L100.0100, L500.4050, L506.0400, L501.2300, L501.5200 #### [facility] [place], [address] Absolute lymphocyte countOrd ered By: Axel Castaneda on 05-02-2025 Lymphocytes Auto (Unsp spec) [#/Vol] 1.78 10*3/uL 0.83-4.51 [facility] Absolute neutrophil countOrd ered By: Axelsancho Castaneda on 05-02-2025 Neutrophils (Bld) [#/Vol] 5.5 10*3/uL 2.0-7.7 [facility] Anion gap in Serum or Plasma Ordered By: Axel Castaneda on 05-02-2025 Anion gap [Moles/Vol] 14 mmol/L 5-15 [facility] Automated lymphocyte count a s percentage of total leukocytesOrdered By: Axel Castaneda on 05-02-2025 Lymphocytes/100 WBC Auto (Unsp spec) 21.5 % 19-41 [facility] BUN/creatinine ratioOrdered By: Axelelina Castaneda on 05-02-2025 Urea nitrogen/Creatinine [Mass ratio] 19.7 mg/mg 10-20 [facility] Basophil percentageOrdered B y: Axel Castaneda on 05-02-2025 Basophils/100 WBC (Bld) 0.6 % 0-1 [facility] Bilirubin, totalOrdered By: Axel Castaneda on 05-02-2025 Bilirubin [Mass/Vol] 0.63 mg/dL 0.00-1.30 [facility] CBC W/Diff, Automatedon Absolute Lymph 1.78 X10 3/uL Normal 0.83-4.51 [facility] Comment on above: Performed By: #### L 501.6710, L501.68445, L501.9520, L503.0106, L503.6550, L504.2610, L5500.0550, L3100.5440, L101.9900, L100.0100, L500.4050, L506.0400, L501.2300, L501.5200 #### [facility] [address] [place], [address] Absolute Neut 5.5 X10 3/uL Normal 2.0-7.7 [facility] Comment on above: Performed By: #### L 501.6710, L501.35491, L501.9520, L503.0106, L503.6550, L504.2610, L5500.0550, L3100.5440, L101.9900, L100.0100, L500.4050, L506.0400, L501.2300, L501.5200 #### [facility] [address] [facility] [place], [address] Basophils/100 WBC (Bld) 0.6 % Normal 0-1 [facility] Comment on above: Performed By: #### L 501.6710, L501.63622, L501.9520, L503.0106, L503.6550, L504.2610, L5500.0550, L3100.5440, L101.9900, L100.0100, L500.4050, L506.0400, L501.2300, L501.5200 #### [facility] [address] [place], [address] Eosinophils/100 WBC (Bld) 3.7 % Normal 0-5 [facility] Comment on above: Performed By: #### L 501.6710, L501.92982, L501.9520, L503.0106, L503.6550, L504.2610, L5500.0550, L3100.5440, L101.9900, L100.0100, L500.4050, L506.0400, L501.2300, L501.5200 #### [facility] [address] [place], [address] Erythrocyte distribution width (RBC) [Ratio] 12.4 % Normal 11.6-14.6 [facility] Comment on above: Performed By: #### L 501.6710, L501.17536, L501.9520, L503.0106, L503.6550, L504.2610, L5500.0550, L3100.5440, L101.9900, L100.0100, L500.4050, L506.0400, L501.2300, L501.5200 #### [facility] [address] [place], [address] (569) Hematocrit (Bld) [Volume fraction] 39.4 % Normal 37-47 [facility] Comment on above: Performed By: #### L 501.6710, L501.03996, L501.9520, L503.0106, L503.6550, L504.2610, L5500.0550, L3100.5440, L101.9900, L100.0100, L500.4050, L506.0400, L501.2300, L501.5200 #### [facility] [address] [facility] [place], [address] Hemoglobin (Bld) [Mass/Vol] 13.0 g/dL Normal 12.0-15.0 [facility] Comment on above: Performed By: #### L 501.6710, L501.87957, L501.9520, L503.0106, L503.6550, L504.2610, L5500.0550, L3100.5440, L101.9900, L100.0100, L500.4050, L506.0400, L501.2300, L501.5200 #### [facility] [address] [facility] [place], [address] IG% 0.500 Normal 0.0-0.9 [facility] Comment on above: Result Comment: IG% - Immature Granulocytes (promyelocytes, myelocytes and metamyelocytes) > 1% indicates that a LEFT SHIFT is Present. Performed By: #### L 501.6710, L501.57781, L501.9520, L503.0106, L503.6550, L504.2610, L5500.0550, L3100.5440, L101.9900, L100.0100, L500.4050, L506.0400, L501.2300, L501.5200 #### [facility] [address] [place], [address] Lymphocytes/100 WBC (Bld) 21.5 % Normal 19-41 [facility] Comment on above: Performed By: #### L 501.6710, L501.85369, L501.9520, L503.0106, L503.6550, L504.2610, L5500.0550, L3100.5440, L101.9900, L100.0100, L500.4050, L506.0400, L501.2300, L501.5200 #### [facility] [address] [place], [address] MCH (RBC) [Entitic mass] 29.0 pg Normal 27.0-32.0 [facility] Comment on above: Performed By: #### L 501.6710, L501.52435, L501.9520, L503.0106, L503.6550, L504.2610, L5500.0550, L3100.5440, L101.9900, L100.0100, L500.4050, L506.0400, L501.2300, L501.5200 #### [facility] [address] [place], [address] MCHC (RBC) [Mass/Vol] 33.0 g/dL Normal 32-36 [facility] Comment on above: Performed By: #### L 501.6710, L501.20240, L501.9520, L503.0106, L503.6550, L504.2610, L5500.0550, L3100.5440, L101.9900, L100.0100, L500.4050, L506.0400, L501.2300, L501.5200 #### [facility] [address] [place], [address] MCV (RBC) [Entitic vol] 87.8 fL Normal 81-99 [facility] Comment on above: Performed By: #### L 501.6710, L501.57431, L501.9520, L503.0106, L503.6550, L504.2610, L5500.0550, L3100.5440, L101.9900, L100.0100, L500.4050, L506.0400, L501.2300, L501.5200 #### [facility] [address] [facility] [place], [address] Monocytes/100 WBC (Bld) 7.2 % Normal 0-10 [facility] Comment on above: Performed By: #### L 501.6710, L501.81025, L501.9520, L503.0106, L503.6550, L504.2610, L5500.0550, L3100.5440, L101.9900, L100.0100, L500.4050, L506.0400, L501.2300, L501.5200 #### [facility] [address] [place], [address] Neutrophils/100 WBC (Bld) 66.5 % Normal 47-70 [facility] Comment on above: Performed By: #### L 501.6710, L501.85893, L501.9520, L503.0106, L503.6550, L504.2610, L5500.0550, L3100.5440, L101.9900, L100.0100, L500.4050, L506.0400, L501.2300, L501.5200 #### [facility] [address] [facility] [place], [address] Nucleated RBC (Bld) [#/Vol] 0 10*3/uL Normal 0-5 [facility] Comment on above: Performed By: #### L 501.6710, L501.16990, L501.9520, L503.0106, L503.6550, L504.2610, L5500.0550, L3100.5440, L101.9900, L100.0100, L500.4050, L506.0400, L501.2300, L501.5200 #### [facility] [address] [place], [address] Platelet mean volume (Bld) [Entitic vol] 11.7 fL Normal 6.2-12.0 [facility] Comment on above: Performed By: #### L 501.6710, L501.13142, L501.9520, L503.0106, L503.6550, L504.2610, L5500.0550, L3100.5440, L101.9900, L100.0100, L500.4050, L506.0400, L501.2300, L501.5200 #### [facility] [address] [place], [address] Platelets (Bld) [#/Vol] 277 10*3/uL Normal 150-450 [facility] Comment on above: Performed By: #### L 501.6710, L501.60803, L501.9520, L503.0106, L503.6550, L504.2610, L5500.0550, L3100.5440, L101.9900, L100.0100, L500.4050, L506.0400, L501.2300, L501.5200 #### [facility] [address] [place], [address] RBC (Bld) [#/Vol] 4.49 10*6/uL Normal 4.2-5.4 [facility] Comment on above: Performed By: #### L 501.6710, L501.14220, L501.9520, L503.0106, L503.6550, L504.2610, L5500.0550, L3100.5440, L101.9900, L100.0100, L500.4050, L506.0400, L501.2300, L501.5200 #### [facility] [address] [place], [place], [id number] (656) RDW SD 39.7 fl Normal 35.1-43.9 [facility] Comment on above: Performed By: #### L 501.6710, L501.60525, L501.9520, L503.0106, L503.6550, L504.2610, L5500.0550, L3100.5440, L101.9900, L100.0100, L500.4050, L506.0400, L501.2300, L501.5200 #### [facility] [address] [place], [place], [id number] WBC (Bld) [#/Vol] 8.3 10*3/uL Normal 4.4-11.0 [facility] Comment on above: Performed By: #### L 501.6710, L501.35847, L501.9520, L503.0106, L503.6550, L504.2610, L5500.0550, L3100.5440, L101.9900, L100.0100, L500.4050, L506.0400, L501.2300, L501.5200 #### [facility] [address] [place], [place], [id number] CRPon 05-02-2025 C-REACTIVE PROT 14.70 mg/L High 0.0-3.0 [facility] Comment on above: Performed By: #### L 501.6710, L501.74950, L501.9520, L503.0106, L503.6550, L504.2610, L5500.0550, L3100.5440, L101.9900, L100.0100, L500.4050, L506.0400, L501.2300, L501.5200 #### [facility] [address] [place], [place], [id number] Carbon dioxide, total [Moles /volume] in Central venous bloodOrdered By: Axel Castaneda on 05-02-2025 CO2 [Moles/Vol] 21.1 mmol/L 21.0-32.0 [facility] Chloride assayOrdered By: Ra johnathan Castaneda on 05-02-2025 Chloride [Moles/Vol] 104 mmol/L 98-108 [facility] Comprehensive Metabolic Prof ilon 05-02-2025 Albumin [Mass/Vol] 4.1 g/dL Normal 3.5-5.0 [facility] Comment on above: Performed By: #### L 501.6710, L501.57285, L501.9520, L503.0106, L503.6550, L504.2610, L5500.0550, L3100.5440, L101.9900, L100.0100, L500.4050, L506.0400, L501.2300, L501.5200 #### [facility] [address] [place], [place], [id number] (140) Albumin/Globulin [Mass ratio] 1.2 {ratio} Normal 0.9-2.4 [facility] Comment on above: Performed By: #### L 501.6710, L501.91180, L501.9520, L503.0106, L503.6550, L504.2610, L5500.0550, L3100.5440, L101.9900, L100.0100, L500.4050, L506.0400, L501.2300, L501.5200 #### [facility] [address] [place], [place], [id number] ALK PHOS 114 U/L High 35-104 [facility] Comment on above: Performed By: #### L 501.6710, L501.29309, L501.9520, L503.0106, L503.6550, L504.2610, L5500.0550, L3100.5440, L101.9900, L100.0100, L500.4050, L506.0400, L501.2300, L501.5200 #### [facility] [address] [place], [place], [id number] ALT [Catalytic activity/Vol] 27 U/L Normal <=34 [facility] Comment on above: Performed By: #### L 501.6710, L501.65058, L501.9520, L503.0106, L503.6550, L504.2610, L5500.0550, L3100.5440, L101.9900, L100.0100, L500.4050, L506.0400, L501.2300, L501.5200 #### [facility] [address] [place], [address] AST [Catalytic activity/Vol] 26 U/L Normal <=31 [facility] Comment on above: Performed By: #### L 501.6710, L501.59212, L501.9520, L503.0106, L503.6550, L504.2610, L5500.0550, L3100.5440, L101.9900, L100.0100, L500.4050, L506.0400, L501.2300, L501.5200 #### [facility] [address] [place], [place], [id number] Bilirubin [Mass/Vol] 0.63 mg/dL Normal 0.00-1.30 [facility] Comment on above: Performed By: #### L 501.6710, L501.98670, L501.9520, L503.0106, L503.6550, L504.2610, L5500.0550, L3100.5440, L101.9900, L100.0100, L500.4050, L506.0400, L501.2300, L501.5200 #### [facility] [address] [place], [place], [id number] (971) BUN/CRE 19.7 RATIO Normal 10-20 [facility] Comment on above: Performed By: #### L 501.6710, L501.34272, L501.9520, L503.0106, L503.6550, L504.2610, L5500.0550, L3100.5440, L101.9900, L100.0100, L500.4050, L506.0400, L501.2300, L501.5200 #### [facility] [address] [place], [place], [id number] (247) Calcium [Mass/Vol] 9.0 mg/dL Normal 7.6-11.0 [facility] Comment on above: Performed By: #### L 501.6710, L501.84461, L501.9520, L503.0106, L503.6550, L504.2610, L5500.0550, L3100.5440, L101.9900, L100.0100, L500.4050, L506.0400, L501.2300, L501.5200 #### [facility] [address] [place], [address] Chloride [Moles/Vol] 104 mmol/L Normal 98-108 [facility] Comment on above: Performed By: #### L 501.6710, L501.35457, L501.9520, L503.0106, L503.6550, L504.2610, L5500.0550, L3100.5440, L101.9900, L100.0100, L500.4050, L506.0400, L501.2300, L501.5200 #### [facility] [address] [place], [address] CO2 [Moles/Vol] 21.1 mmol/L Normal 21.0-32.0 [facility] Comment on above: Performed By: #### L 501.6710, L501.54839, L501.9520, L503.0106, L503.6550, L504.2610, L5500.0550, L3100.5440, L101.9900, L100.0100, L500.4050, L506.0400, L501.2300, L501.5200 #### [facility] [address] [place], [address] Creatinine [Mass/Vol] 0.76 mg/dL Normal 0.70-1.20 [facility] Comment on above: Performed By: #### L 501.6710, L501.80335, L501.9520, L503.0106, L503.6550, L504.2610, L5500.0550, L3100.5440, L101.9900, L100.0100, L500.4050, L506.0400, L501.2300, L501.5200 #### [facility] [address] [facility], [address] GAP 14 Normal 5-15 [facility] Comment on above: Performed By: #### L 501.6710, L501.42963, L501.9520, L503.0106, L503.6550, L504.2610, L5500.0550, L3100.5440, L101.9900, L100.0100, L500.4050, L506.0400, L501.2300, L501.5200 #### [facility] [address] [place], [address] GFR/1.73 sq M.predicted among non-blacks MDRD (S/P/Bld) [Vol rate/Area] 96 mL/min/{1.73_m2} Normal >60 [facility] Comment on above: Result Comment: mL/m in/1.73m2 CKD-EPI Creatinine Equation (2020) Performed By: #### L 501.6710, L501.58043, L501.9520, L503.0106, L503.6550, L504.2610, L5500.0550, L3100.5440, L101.9900, L100.0100, L500.4050, L506.0400, L501.2300, L501.5200 #### [facility] [address] [place], [address] Globulin (S) [Mass/Vol] 3.3 g/dL Normal 2.2-4.2 [facility] Comment on above: Performed By: #### L 501.6710, L501.07754, L501.9520, L503.0106, L503.6550, L504.2610, L5500.0550, L3100.5440, L101.9900, L100.0100, L500.4050, L506.0400, L501.2300, L501.5200 #### [facility] [address] [place], [address] Glucose [Mass/Vol] 98 mg/dL Normal 70-99 [facility] Comment on above: Performed By: #### L 501.6710, L501.61415, L501.9520, L503.0106, L503.6550, L504.2610, L5500.0550, L3100.5440, L101.9900, L100.0100, L500.4050, L506.0400, L501.2300, L501.5200 #### [facility] [address] [place], [address] Potassium [Moles/Vol] 4.0 mmol/L Normal 3.3-5.1 [facility] Comment on above: Performed By: #### L 501.6710, L501.79153, L501.9520, L503.0106, L503.6550, L504.2610, L5500.0550, L3100.5440, L101.9900, L100.0100, L500.4050, L506.0400, L501.2300, L501.5200 #### [facility] [address] [place], [place], [id number] Sodium [Moles/Vol] 139 mmol/L Normal 133-145 [facility] Comment on above: Performed By: #### L 501.6710, L501.80402, L501.9520, L503.0106, L503.6550, L504.2610, L5500.0550, L3100.5440, L101.9900, L100.0100, L500.4050, L506.0400, L501.2300, L501.5200 #### [facility] [address] [place], [address] T PROT 7.4 g/dL Normal 5.9-8.4 [facility] Comment on above: Performed By: #### L 501.6710, L501.63379, L501.9520, L503.0106, L503.6550, L504.2610, L5500.0550, L3100.5440, L101.9900, L100.0100, L500.4050, L506.0400, L501.2300, L501.5200 #### [facility] [address] [place], [place], [address] Urea nitrogen [Mass/Vol] 15 mg/dL Normal 4-19 [facility] Comment on above: Performed By: #### L 501.6710, L501.90842, L501.9520, L503.0106, L503.6550, L504.2610, L5500.0550, L3100.5440, L101.9900, L100.0100, L500.4050, L506.0400, L501.2300, L501.5200 #### [facility] [address] [place], [place], [address] Eosinophil percentageOrdered By: Axelsancho Castaneda on 05-02-2025 Eosinophils/100 WBC (Bld) 3.7 % 0-5 [facility] Erythrocyte Sed Rateon 05-02 SED RATE 28 mm/hr Normal 0-30 [facility] Comment on above: Performed By: #### L 501.6710, L501.14956, L501.9520, L503.0106, L503.6550, L504.2610, L5500.0550, L3100.5440, L101.9900, L100.0100, L500.4050, L506.0400, L501.2300, L501.5200 #### [facility] [address] [place], [address] Erythrocyte distribution wid th ratioOrdered By: Axel Leonel on 05-02-2025 Erythrocyte distribution width (RBC) [Ratio] 12.4 % 11.6-14.6 [facility] Erythrocyte distribution wid th standard deviationOrdered By: Axel Leonel on 05-02-2025 Erythrocyte distribution width (RBC) [Ratio] 39.7 fl 35.1-43.9 [facility] Erythrocyte sedimentation ra teOrdered By: Axel Castaneda on 05-02-2025 ESR (Bld) [Velocity] 28 mm/h 0-30 [facility] Ferritinon 05-02-2025 Ferritin [Mass/Vol] 103 ng/mL Normal 22-378 [facility] Comment on above: Performed By: #### L 501.6710, L501.04353, L501.9520, L503.0106, L503.6550, L504.2610, L5500.0550, L3100.5440, L101.9900, L100.0100, L500.4050, L506.0400, L501.2300, L501.5200 #### [facility] [address] [place], [place], [address] Free T3on 05-02-2025 Free T3 [Mass/Vol] 3.0 pg/mL Normal 2.18-3.98 [facility] Comment on above: Performed By: #### L 501.6710, L501.05512, L501.9520, L503.0106, L503.6550, L504.2610, L5500.0550, L3100.5440, L101.9900, L100.0100, L500.4050, L506.0400, L501.2300, L501.5200 #### [facility] [address] [place], [place], [address] Free [id number] By: Axel whitfield on 05-02-2025 Free T3 [Mass/Vol] 3.0 pg/mL 2.18-3.98 [facility] Glomerular filtration rate ( GFR) estimation/1.73 sq m using serum, plasma, or whole bOrdered By: Axel Castaneda on 05-02-2025 GFR/1.73 sq M.predicted among non-blacks MDRD (S/P/Bld) [Vol rate/Area] 96 mL/min/{1.73_m2} >60 [facility] Comment on above: mL/min/1.73m2 CKD-EP I Creatinine Equation (2020) Hematocrit Auto (Bld) [Volum e fraction]Ordered By: Axel Castaneda on 05-02-2025 Hematocrit (Bld) [Volume fraction] 39.4 % 37-47 [facility] Hemoglobin measurementOrdere d By: Axel Castaneda on 05-02-2025 Hemoglobin (Bld) [Mass/Vol] 13.0 g/dL 12.0-15.0 [facility] Immature granulocytes/100 WB C Auto (Bld)Ordered By: Axel Castaneda on 05-02-2025 Immature granulocytes/100 WBC (Bld) 0.500 % 0.0-0.9 [facility] Comment on above: IG% - Immature Granu locytes (promyelocytes, myelocytes and metamyelocytes) > 1% indicates that a LEFT SHIFT is Present. LDHon 05-02-2025 LDH 166 U/L Normal 84-246 [facility] Comment on above: Order Comment: 1 Performed By: #### L 501.6710, L501.58732, L501.9520, L503.0106, L503.6550, L504.2610, L5500.0550, L3100.5440, L101.9900, L100.0100, L500.4050, L506.0400, L501.2300, L501.5200 #### [facility] [place], [address] Laboratory - Chemistry and C hemistry - challengeOrdered By: Axel Castaneda on 05-02-2025 AST [Catalytic activity/Vol] 26 U/L <32 [facility] - Miscellaneous t estsOrdered By: Axel Castaneda on 05-02-2025 Service comment (Unsp spec) [Interp] Comment . [facility] Comment on above: Levels of Specific I [...] 05-02-2025 LDH [Catalytic activity/Vol] 166 U/L 84-246 [facility] MCV (mean corpuscular volume ) determinationOrdered By: Axel Castaneda on 05-02-2025 MCV (RBC) [Entitic vol] 87.8 fL 81-99 [facility] Magnesiumon 05-02-2025 Magnesium [Mass/Vol] 2.0 mg/dL Normal 1.5-2.2 [facility] Comment on above: Performed By: #### L 501.6710, L501.85038, L501.9520, L503.0106, L503.6550, L504.2610, L5500.0550, L3100.5440, L101.9900, L100.0100, L500.4050, L506.0400, L501.2300, L501.5200 #### [facility] [place], [address] Magnesium measurement (mass/ volume)Ordered By: Axel Castaneda on 05-02-2025 Magnesium (Unsp spec) [Mass/Vol] 2.0 mg/dL 1.5-2.2 [facility] Mean corpuscular hemoglobin (MCH) determinationOrdered By: Axel Castaneda on 05-02-2025 MCH (RBC) [Entitic mass] 29.0 pg 27.0-32.0 [facility] Mean corpuscular hemoglobin concentration (MCHC) determinationOrdered By: Axel Castaneda on 05-02-2025 MCHC (RBC) [Mass/Vol] 33.0 g/dL 32-36 [facility] Mean platelet volume determi nationOrdered By: Axelsancho Castaneda on 05-02-2025 Platelet mean volume (Bld) [Entitic vol] 11.7 fL 6.2-12.0 [facility] Monocyte percentageOrdered B y: Axel Castaneda on 05-02-2025 Monocytes/100 WBC (Bld) 7.2 % 0-10 [facility] Neutrophil percentageOrdered By: Axelelina Castaneda on 05-02-2025 Neutrophils/100 WBC (Bld) 66.5 % 47-70 [facility] Nucleated red blood cell per centageOrdered By: Axelsancho Castaneda on 05-02-2025 Nucleated RBC/100 WBC (Bld) [Ratio] 0 % 0-5 [facility] Phosphoruson 05-02-2025 Phosphate [Mass/Vol] 3.2 mg/dL Normal 2.7-4.5 [facility] Comment on above: Performed By: #### L 501.6710, L501.14937, L501.9520, L503.0106, L503.6550, L504.2610, L5500.0550, L3100.5440, L101.9900, L100.0100, L500.4050, L506.0400, L501.2300, L501.5200 #### [facility] [address] [place], [address] Platelet countOrdered By: Ra johnathan Castaneda on 05-02-2025 Platelets (Bld) [#/Vol] 277 10*3/uL 150-450 [facility] Potassium measurement (mass/ volume)Ordered By: Axel Castaneda on 05-02-2025 Potassium (Unsp spec) [Mass/Vol] 4.0 mmol/L 3.3-5.1 [facility] RBC Auto (Bld) [#/Vol]Ordere d By: Axel Castaneda on 05-02-2025 RBC (Bld) [#/Vol] 4.49 10*6/uL 4.2-5.4 [facility] Serum DNA double strand anti body assay (units/volume)Ordered By: Axel Castaneda on 05-02-2025 DNA double strand Ab Qn (S) [IU]/mL 0-9 [facility] Comment on above: Negative <5 Equivoca l 5 - 9 Positive >9 Serum Scl-70 antibody assay (units/volume)Ordered By: Axel Castaneda on 05-02-2025 SCL-70 extractable nuclear Ab Qn (S) <0.2 AI 0.0-0.9 [facility] Comment on above: Previous reported re sult: TNP AIEdited by: JANICE on 05/07/25:0007 AMENDED REPORT 05/07/256 ANTISCLER previously reported as: Test not performed Serum beef IgE antibody assa y (units/volume)Ordered By: Axel Castaneda on 05-02-2025 Beef IgE Qn (S) <0.10 kU/L Class 0 [facility] Serum codfish IgE antibody a ssay (units/volume)Ordered By: Axel Castaneda on 05-02-2025 Codfish IgE Qn (S) <0.10 kU/L Class 0 [facility] Serum corn IgE antibody assa y (units/volume)Ordered By: Axel Castaneda on 05-02-2025 Eunice IgE Qn (S) <0.10 kU/L Class 0 [facility] Serum cow milk IgE antibody assay (units/volume)Ordered By: Axel Castaneda on 05-02-2025 Cow milk IgE Qn (S) 0.12 kU/L High Class 0/I [facility] Serum creatinine measurement (mass/volume)Ordered By: Axel Castaneda on 05-02-2025 Creatinine [Mass/Vol] 0.76 mg/dL 0.70-1.20 [facility] Serum globulin measurementOr dered By: Axel Castaneda on 05-02-2025 Globulin (S) [Mass/Vol] 3.3 g/dL 2.2-4.2 [facility] Serum glucose measurement (m ass/volume)Ordered By: Axel Castaneda on 05-02-2025 Glucose [Mass/Vol] 98 mg/dL 70-99 [facility] Serum or plasma C reactive p rotein measurement (mass/volume)Ordered By: Axel Castaneda on 05-02-2025 CRP [Mass/Vol] 14.70 mg/L High 0.0-3.0 [facility] Serum or plasma alanine hannah otransferase (ALT) measurementOrdered By: Axel Castaneda on 05-02-2025 ALT [Catalytic activity/Vol] 27 U/L <35 [facility] Serum or plasma albumin jamil urement (mass/volume)Ordered By: Axel Castaneda on 05-02-2025 Albumin [Mass/Vol] 4.1 g/dL 3.5-5.0 [facility] Serum or plasma albumin/glob ulin mass ratioOrdered By: Axel Castaneda on 05-02-2025 Albumin/Globulin [Mass ratio] 1.2 {ratio} 0.9-2.4 [facility] Serum or plasma alkaline shoaib sphatase measurementOrdered By: Axel Castaneda on 05-02-2025 ALP [Catalytic activity/Vol] 114 U/L High 35-104 [facility] Serum or plasma calcium jamil urement (mass/volume)Ordered By: Axel Castaneda on 05-02-2025 Calcium [Mass/Vol] 9.0 mg/dL 7.6-11.0 [facility] Serum or plasma ferritin satnam surement (mass/volume)Ordered By: Axel Castaneda on 05-02-2025 Ferritin [Mass/Vol] 103 ng/mL 22-378 [facility] Serum or plasma urea nitroge n measurement (mass/volume)Ordered By: Axel Castaneda on 05-02-2025 Urea nitrogen [Mass/Vol] 15 mg/dL 4-19 [facility] Serum peanut IgE antibody as say (units/volume)Ordered By: Axel Castaneda on 05-02-2025 Peanut IgE Qn (S) <0.10 kU/L Class 0 [facility] Serum pork IgE antibody assa y (units/volume)Ordered By: Axel Castaneda on 05-02-2025 Pork IgE Qn (S) <0.10 kU/L Class 0 [facility] Serum salmon IgE antibody as say (units/volume)Ordered By: Axel Castaneda on 05-02-2025 [place] IgE Qn (S) <0.10 kU/L Class 0 [facility] Serum soybean IgE antibody a ssay (units/volume)Ordered By: Axel Castaneda on 05-02-2025 Soybean IgE Qn (S) <0.10 kU/L Class 0 [facility] Serum tuna IgE antibody assa y (units/volume)Ordered By: Axel Castaneda on 05-02-2025 Tuna IgE Qn (S) <0.10 kU/L Class 0 [facility] Serum wheat IgE antibody ass ay (units/volume)Ordered By: Axel Castaneda on 05-02-2025 Wheat IgE Qn (S) <0.10 kU/L Class 0 [facility] Serum whole egg IgE antibody assay (units/volume)Ordered By: Axel Castaneda on 05-02-2025 Whole Egg IgE Qn (S) <0.10 kU/L Class 0 [facility] Comment on above: Performed at: [address] [id number] Director: Angel Campos PhD, Phone: [phone] at: [facility] [place], [place] [id number] Director: Davian Gudino MD, Phone: [phone] Sodium levelOrdered By: Carrillo Burgess on 05-02-2025 Sodium [Moles/Vol] 139 mmol/L 133-145 [facility] T4 Free Directon 05-02-2025 T4 FREE DIRECT 0.80 ng/dL Normal 0.76-1.46 [facility] Comment on above: Performed By: #### L 501.6710, L501.02337, L501.9520, L503.0106, L503.6550, L504.2610, L5500.0550, L3100.5440, L101.9900, L100.0100, L500.4050, L506.0400, L501.2300, L501.5200 #### [facility] [address] [place], [address] T4 freeOrdered By: Axel whitfield on 05-02-2025 Free T4 [Mass/Vol] 0.80 ng/dL 0.76-1.46 [facility] TSH DL <= 0.005 mIU/L QnOrde red By: Axel Castaneda on 05-02-2025 TSH Qn 1.070 uIU/mL 0.300-4.200 [facility] Thyroid Stim Hormone (TSH)on 05-02-2025 TSH 1.070 uIU/mL Normal 0.300-4.200 [facility] Comment on above: Performed By: #### L 501.6710, L501.60708, L501.9520, L503.0106, L503.6550, L504.2610, L5500.0550, L3100.5440, L101.9900, L100.0100, L500.4050, L506.0400, L501.2300, L501.5200 #### [facility] [address] [place], [address] Total proteinOrdered By: Ashwin Castaneda on 05-02-2025 Protein [Mass/Vol] 7.4 g/dL 5.9-8.4 [facility] Vitamin B12on 05-02-2025 Cobalamin (Vitamin B12) [Mass/Vol] 790 pg/mL Normal 180-914 [facility] Comment on above: Performed By: #### L 501.6710, L501.19898, L501.9520, L503.0106, L503.6550, L504.2610, L5500.0550, L3100.5440, L101.9900, L100.0100, L500.4050, L506.0400, L501.2300, L501.5200 #### [facility] [address] [place], [place], [address] Vitamin B12 ser/plasOrdered By: Axel Castaneda on 05-02-2025 Cobalamin (Vitamin B12) [Mass/Vol] 790 pg/mL 180-914 [facility] White blood cell (WBC) count Ordered By: Axel Castaneda on 05-02-2025 WBC (Bld) [#/Vol] 8.3 10*3/uL 4.4-11.0 [facility] Gastroenterology Visit Repor ton 04-15-2025 Gastroenterology Visit Report [facility] [address] [place] [address] OFFICE VISIT Date of Service: 04/15/25 MR#: [id number] Acct: [id number] Name: MENDOZA JOHNSON Rep #: [id number] : 1975 Provider: Axel Castaneda DO Age/Sex: 49/F Location: [facility] Status: Signed Intake Vital Signs 01/07/25 06:54 [...] any questions or concerns at this time. [facility] Medical History (Updated 04/15/25 @ 09:[address] Reyan Friend, DO) Arthritis IBS (irritable bowel syndrome) [...] the pa (more content not included)... Normal [facility] Urgent Care Visit Reporton 0 01-07-2025 Urgent Care Visit Report [facility] [address], [address] [place] [address] OFFICE VISIT Date of Service: 01/07/25 MR#: [id number] Acct: [id number] Name: MENDOZA JOHNSON Rep #: [id number] : 1975 Provider: BHUMIKA Carver Age/Sex: 49/F Location: [facility] Status: Signed Intake Vital Signs 08/24/23 20:44 [...] noticed it was back on her abdomen. [facility] Medical History (Updated 01/07/25 @ 07:49 by [...] no acute distress Orientation: alert and awake [facility] Head: normal to inspection Ears: [...] of palpita (more content not included)... Normal [facility] CNTHERAPYon 06-14-2024 CNTHERAPY OT/PT/Speech Visit (PTWS) MENDOZA JOHNSON ([id number]) 1975 F Date Time Provider Department 06/14/24 9:30 AM ELIZ SIFUENTES PTWS Date Time Provider Department Center 06/14/2024 9:30 AM [id number] SIFUENTES PTWS Mae Knowles Reason for Visit: [...] Take 1 tablet by mouth once daily. Vacuum Closing Machine Operator: Addendum Therapy (PT/OT/Speech/Resp) ID: [id number] 06/14/2024 10:01 AM Author: ELIZ SIFUENTES Signed by ELIZ SIFUENTES PT on 06/14/2024 at 10:01 AM * * * This document replaces document [id number] * * * Document text: Program_ID:[id number] Access Code: [email or web address] URL: [email or web address] Date: 06-14-2024 Prepared By: Eliz Sifuentes Program [...] 3-4 sets - 15 reps ----- Normal [facility] THERAPY NTon 06-14-2024 THERAPY NT HNO ID: [id number] Author: ELIZ SIFUENTES, PT Service: ? Author Type: Physical Therapist Type: Therapy (PT/OT/Speech/Resp) Filed: 06/14/2024 10:01 Note Text: Program_ID:[id number] Access Code: [email or web address] URL: [email or web address] Date: 06-14-2024 Prepared By: Eliz Sifuentes Program [...] - 3-4 sets - 15 reps Normal [facility] CNTHERAPYon 06-01-2024 CNTHERAPY OT/PT/Speech Visit (PTWS) MENDOZA JOHNSON ([id number]) 1975 F Date Time Provider Department 06/01/24 9:30 AM FARRAH WHITING PTADRIEN Date Time Provider Department [place] 06/01/2024 9:30 AM [id number] WHITING Reason for Visit: Physical Therapy [503] [...] 1 tablet by mouth once daily. Normal [facility] CNTHERAPYon 05-22-2024 CNTHERAPY OT/PT/Speech Visit (PTWS) MENDOZA JOHNSON ([id number]) 1975 F Date Time Provider Department 05/22/24 3:00 PM ELIZ SIFUENTES PTWS Date Time Provider Department Center 05/22/2024 3:00 PM [id number] SIFUENTES PTWS Mae Benson Reason for Visit: [...] 1 tablet by mouth once daily. Normal [facility] [id number] 05-15-2024 [id number] O ID: [id number] Author: ELIZ SIFUENTES PT Service: ? Author Type: Physical Therapist Type: [id number] Filed: 05/15/2024 15:35 Note Text: [facility] Physical Therapy Plan of Care Certification Patient Name: Mendoza Johnson : 1975 [facility] #: [id number] Date: 05/15/2024 To: Chey Plata DO From Therapist: Eliz Sifuentes PT RE: Patient Certification/ Recertification Your review, approval and electronic signature are required in order to comply with Payor: MMO / Plan: [facility] P[facility] / Product Type: PPO / [...] 05/22/24 Goals updated on 05/15/2024 through 06/26/24 [place] in home exercise program. -- MET Patient [...] Patient to be seen for Gait Training (42681), Self-chcf management (47274), Therapeutic activities (63406), Manual therapy (45138), Therapeutic exercise (54772), Neuromuscular re-education (48094) PLAN FOR NEXT VISIT: assess symptom response with scapular stabilization using theraband resistance For further details regarding this patient refer to the Physical Therapy electronically documented visit dated 05/15/2024. Provider Attestation I have reviewed the treatment plan for Mendoza Izaiah Johnson, [facility]# [id number] for the period of 05/15/24 -- 06/26/24, established on 05/15/2024. Signature certifies the need for therapy services. Normal [facility] CNTHERAPYon 05-15-2024 CNTHERAPY OT/PT/Speech Visit (PTWS) MENDOZA JOHNSON ([id number]) 1975 F Date Time Provider Department 05/15/24 3:00 PM ELIZ SIFUENTES PTADRIEN Date Time Provider Department Center 05/15/2024 3:00 PM [id number] SIFUENTES PTADRIEN Knowles Reason for Visit: PT [...] Take 1 tablet by mouth once daily. Vacuum Closing Machine Operator: Addendum Therapy (PT/OT/Speech/Resp) ID: [id number] 05/15/2024 3:24 PM Author: ELIZ SIFUENTES Signed by ELIZ SIFUENTES PT on 05/15/2024 at 3:24 PM * * * This document replaces document [id number] * * * Document text: Program_ID:[id number] Access Code: [email or web address] URL: [email or web address] Date: 05-15-2024 Prepared By: Eliz Sifuentes Program [...] 4 sets - 8-10 reps ----- Normal [facility] THERAPY NTon 05-15-2024 THERAPY NT HNO ID: [id number] Author: ELIZ SIFUENTES, PT Service: ? Author Type: Physical Therapist Type: Therapy (PT/OT/Speech/Resp) Filed: 05/15/2024 15:24 Note Text: Program_ID:[id number] Access Code: [email or web address] URL: [email or web address] Date: 05-15-2024 Prepared By: Eliz O'Honorio Program [...] - 4 sets - 8-10 reps Normal [facility] CNTHERAPYon 05-08-2024 CNTHERAPY OT/PT/Speech Visit (PTWS) MENDOZA JOHNSON ([id number]) 1975 F Date Time Provider Department 05/08/24 3:30 PM FARRAH WHITING PTADRIEN Date Time Provider Department [place] 05/08/2024 3:30 PM [id number], MARIAH PTADRIEN Knowles Reason for Visit: Physical [...] 1 tablet by mouth once daily. Normal [facility] CNTHERAPYon 05-01-2024 CNTHERAPY OT/PT/Speech Visit (PTWS) MENDOZA JOHNSON ([id number]) 1975 F Date Time Provider Department 05/01/24 3:30 PM FARRAH WHITING PTADRIEN Date Time Provider Department Center 05/01/2024 3:30 PM [id number], MARIAH PTWS Mae Knowles Reason for Visit: [...] Take 1 tablet by mouth once daily. Vacuum Closing Machine Operator: Addendum Therapy (PT/OT/Speech/Resp) ID: [id number] 05/01/2024 4:00 PM Author: FARRAH WHITING Signed by FARRAH WHITING [employer]IR on 05/01/2024 at 4:00 PM * * * This document replaces document [id number] * * * Document text: Program_ID:[id number] Access Code: [email or web address] URL: [email or web address] Date: 05-01-2024 Prepared By: Eliz Sifuentes Program [...] 2 sets - 10 reps ----- Normal [facility] THERAPY NTon 05-01-2024 THERAPY NT HNO ID: [id number] Author: FARRAH WHITING PTA Service: ? Author Type: Branch Sales And Service Representative Type: Therapy (PT/OT/Speech/Resp) Filed: 05/01/2024 16:00 Note Text: Program_ID:[id number] Access Code: [email or web address] URL: [email or web address] Date: 05-01-2024 Prepared By: Eliz Sifuentes Program [...] - 2 sets - 10 reps Normal [facility] CNTHERAPYon 04-10-2024 CNTHERAPY OT/PT/Speech Visit (PTWS) MENDOZA JOHNSON ([id number]) 1975 F Date Time Provider Department 04/10/24 2:45 PM FARRAH WHITING PTWS Date Time Provider Department [place] 04/10/2024 2:45 PM [id number], MARIAH PTWS Mae Knowles Reason for Visit: [...] 1 tablet by mouth once daily. Normal [facility] CNTHERAPYon 04-04-2024 CNTHERAPY OT/PT/Speech Visit (PTWS) MENDOZA JOHNSON ([id number]) 1975 F Date Time Provider Department 04/04/24 3:45 PM SIOBHAN PATEL PTADRIEN Date Time Provider Department [place] 04/04/2024 3:45 PM [id number] PATEL Reason for Visit: Physical Therapy [503] [...] Take 1 tablet by mouth once daily. Vacuum Closing Machine Operator: Therapy (PT/OT/Speech/Resp) ID: [id number] 04/04/2024 4:23 PM Author: SIOBHAN PATEL Signed by SIOBHAN PATEL PT, DPT on 04/04/2024 at 4:23 PM Document text: Program_ID:[id number] Access Code: [email or web address] URL: [email or web address] Date: 04-04-2024 Prepared By: Eliz Sifuentes Program [...] 2-3 sets - 10 reps ----- Normal [facility] THERAPY NTon 04-04-2024 THERAPY NT HNO ID: [id number] Author: SIOBHAN PATEL PT, DPT Service: ? Author Type: Physical Therapist Type: Therapy (PT/OT/Speech/Resp) Filed: 04/04/2024 16:23 Note Text: Program_ID:[id number] Access Code: [email or web address] URL: [email or web address] Date: 07-10-2024 Prepared By: Eliz Sifuentes Program [...] - 2-3 sets - 10 reps Normal [facility] [id number] 03-27-2024 [id number] HNO ID: [id number] Author: ELIZ SIFUENTES PT Service: ? Author Type: Physical Therapist Type: [id number] Filed: 03/27/2024 16:27 Note Text: [facility] Physical Therapy Plan of Care Certification Patient Name: Mendoza Johnson : 1975 CC #: [id number] Date: 03/27/2024 To: Chey Plata, DO From Therapist: Eliz Sifuentes PT RE: Patient Certification/ Recertification Your review, approval and electronic signature are required in order to comply with Payor: MMO / Plan: O [facility] PPO / Product Type: PPO / regulations. [...] of Care: created on 03/27/24 through 05/22/24 [place] in home exercise program. Patient will decrease [...] Planned: 8 Planned Treatment Interventions: Gait Training (99083), Self-chcf management (26252), Therapeutic activities (22680), Manual therapy (00168), Therapeutic exercise (94609), Neuromuscular re-education (45416) PLAN FOR NEXT VISIT: isometrics Patient demonstrates good understanding of plan of care and treatment. The above goals and plan of care were discussed and agreed upon by patient/family. For further details regarding this patient refer to the Physical Therapy electronically documented visit dated 03/27/2024. Provider Attestation I have reviewed the treatment plan for Mendoza Izaiah Johnson, [facility]# [id number] for the period of 03/27/24 -- 05/22/24, established on 03/27/2024. Signature certifies the need for therapy services. Normal [facility] CNTHERAPYon 03-27-2024 CNTHERAPY OT/PT/Speech Visit (PTWS) MENDOZA JOHNSON ([id number]) 1975 F Date Time Provider Department 03/27/24 3:45 PM ELIZ SIFUENTES PTWS Date Time Provider Department Center 03/27/2024 3:45 PM [id number] SIFUENTES PTWS Mae Knowles Reason for Visit: [...] Take 1 tablet by mouth once daily. Vacuum Closing Machine Operator: Addendum Therapy (PT/OT/Speech/Resp) ID: [id number] 03/27/2024 4:05 PM Author: ELIZ SIFUENTES Signed by ELIZ SIFUENTES PT on 03/27/2024 at 4:05 PM * * * This document replaces document [id number] * * * Document text: Program_ID:[id number] Access Code: [email or web address] URL: [email or web address] Date: 03-27-2024 Prepared By: Eliz Sifuentes Program [...] 2-3 sets - 10 reps ----- Normal [facility] THERAPY NTon 03-27-2024 THERAPY NT HNO ID: [id number] Author: ELIZ SIFUENTES, ROCIO Service: ? Author Type: Physical Therapist Type: Therapy (PT/OT/Speech/Resp) Filed: 03/27/2024 16:05 Note Text: Program_ID:[id number] Access Code: [email or web address] URL: [email or web address] Date: 03-27-2024 Prepared By: Eliz Sifuentes Program [...] - 2-3 sets - 10 reps Normal [facility] CNOVon 03-09-2024 CNOV Office Visit (ORAVON ) MENDOZA JOHNSON ([id number]) 1975 F Date Time Provider Department 03/09/24 9:15 AM CHEY PLATA During your visit today, we recorded the following information about you: Chey Plata DO 03/09/2024 9:24 AM Signed Follow-up with me in 6 weeks, can be virtual Follow-up with PT in 2-3 weeks Chey Plata DO 03/09/2024 1:14 PM Signed Minimally Invasive Tenotomy Informed Consent Consent Obtained: Verbal [place] Protocol A moment to CARE was completed. [...] subacromial bursa Informed Consent Consent Obtained: Verbal [place] Protocol A moment to CARE was completed. [...] AM Signed (more content not included)... Normal [facility] Large Joint Arthro/Inj: R frank bacromial bursaon 03-09-2024 Chey Plata, 03/09/2024 1:14 PM Large Joint Arthro/Inj: R subacromial bursa Informed Consent Consent Obtained: Verbal [place] Protocol A moment to CARE was completed. [...] Plan of Care Visit completed when applicable [facility] Minimally Invasive Tenotomyo n 03-09-2024 Chey Plata DO 03/09/2024 1:14 PM Minimally Invasive [place] Informed Consent Consent Obtained: Verbal [place] Protocol A moment to CARE was completed. [...] Plan of Care Visit completed when applicable [facility] SHOULDER-INJECTION RT (PO C) YURI USE ONLYon 03-09-2024 [facility] SHOULDER RTon 02-23-2024 US SHOULDER RT [...] bursal with mild hyperemia and dynamic impingement. Architectural Examiner: JB Transcribe Date/Time: Feb 23 2024 2:56P Dictated by : ENMANUEL BETANCOURT MD This examination was interpreted and the report reviewed and electronically signed by: ENMANUEL BETANCOURT MD on Feb 23 2024 4:25PM EST [id number] N Normal [facility] US Shoulder - righton 2023 IMPRESSION: Marked calcific tendinosis supraspinatus, corresponding to findings on radiographs. Mild subacromial/subdeltoi d bursal with mild hyperemia and dynamic impingement. Architectural Examiner: JB Transcribe Date/Time: Feb 23 2024 2:56P Dictated by : ENMANUEL BETANCOURT MD This examination was interpreted and the report reviewed and electronically signed by: ENMANUEL BETANCOURT MD on Feb 23 2024 4:25PM [facility] DIVISION OF RADIOLOGY * * *Final Report* * * DATE OF EXAM: Feb 23 2024 2:55PM [facility] 1132 - US SHOULDER RT / PROCEDURE [...] Mild degenerative changes. DIVISION OF RADIOLOGY Provider, [facility] - 02/23/2024 * * *Final Report* * * DATE OF EXAM: Feb 23 2024 2:55PM [facility] 1132 - SHOULDER RT / PROCEDURE REASON: [...] bursal with mild hyperemia and dynamic impingement. Architectural Examiner: JB Transcribe Date/Time: Feb 23 2024 2:56P Dictated by : ENMANUEL BETANCOURT MD This examination was interpreted and the report reviewed and electronically signed by: ENMANUEL BETANCOURT MD on Feb 23 2024 4:25PM EST [facility] Radiology Study observation (narrative) Venessa lopez [facility] US Shoulder - rightOrdered B y: [facility]cf Provider on 02-23-2024 [facility] CNOVon 02-22-2024 CNOV Office Visit (LOORRM ) SADIQ JOHNSONY Izaiah ([id number]) 1975 F Date Time Provider Department 02/22/24 [...] results and radiologist's interpretation, available in the [facility] health record. Images were reviewed with [...] The patient will be enrolled in shoulder child care giver to assist in preparation for procedure. Verbal health education was given to patient. Patient verbalizes understanding and agrees with the treatment plan as detailed above. Chey Plata DO Allergies As of Date: 02/22/2024 Noted Allergy Reaction TREE AND SHRUB POLLEN 09/01/2020 14 - Other: See Comments Comments: seasonal Date Reviewed: 02/22/2024 Reviewed by: Chey Plata DO - Fully Assessed Reason for Visit: New [840228] Pain (Shoulder Pain) [1343] Primary Visit Diagnosis:Calcific [...] 03/13/2016 Dyslipide (more content not included)... Normal [facility] Danielle 02-22-2024 MARLYS Telephone (LOORRM) MENDOZA JOHNSON ([id number]) 1975 F Date Time Provider Department 02/22/24 [...] calling: self Call patient at: at home [phone] (home) [phone] (cell) Was an appointment scheduled: No Closing statement: Symptom Call: Thank you for calling [facility], your call is very important. A nurse [...] Fully Assessed Reason for Visit: Medication Question [8858] Prescriptions as of 03/07/2024 - meloxicam (MOBIC) [...] Encounter Status:Closed by KAILA DUFFY on 03/07/24 [facility] Lito 02-08-2024 CNOV Office Visit (ORTHBR ) MENDOZA JOHNSON ([id number]) 1975 F Date Time Provider Department 02/08/24 [...] to go to the emergency department in [place] Current Outpatient Medications Medication Sig oxyCODONE-acetaminoph en [...] improve her (more content not included)... Normal [facility] Danielle 02-08-2024 CNPN Telephone (RULTTB) ALEXMENDOZA Izaiah ([id number]) 1975 F Date Time Provider Department 02/08/24 [...] on 02/23/24 : 2:25 PM at [facility]. Allergies As of Date: 02/08/2024 Noted [...] Status:Closed by SHALA HOFFMAN on 02/08/24 [facility] ([id number]) 1975 F Date Time Provider Department 02/08/24 [...] Status:Closed by ELIEL NATARAJAN on 02/08/24 Normal [facility] XR SHLDR >/=3V AP/PHUC AP/OTH R RTon [...] limits. IMPRESSION: Progressive rotator cuff calcific tendinosis Architectural Examiner: JB Transcribe Date/Time: Feb 11 2024 12:05P Dictated by : WILSON CROWDER MD This examination was interpreted and the report reviewed and electronically signed by: WILSON CROWDER MD on Feb 11 2024 12:06PM EST [id number] Normal [facility] CNOVon 12-22-2023 CNOV Office Visit (WSTR ) MENDOZA JOHNSON ([id number]) 1975 F Date Time Provider Department 12/22/23 8:45 AM JANNETH RACHEL [facility] During your visit today, we recorded the following information about you: Temperature Pulse Respiration Blood pressure 98.9 degrees 68/minute 16/minute 120/62 Weight 98.2 kg Janneth Rachel APRN.FILLER SHREDDING MACHINE LOADER 12/22/2023 9:59 AM Signed CC: Patient presents [...] was revi (more content not included)... Normal [facility] Danielle 12-22-2023 DEEPALIN Telephone (UCWSTR) MENDOZA JOHNSON ([id number]) 1975 F Date Time Provider Department 12/22/23 OBINNA FRAZIER [facility] During your visit today, we recorded the following information about you: Obinna Frazier APRN.FILLER SHREDDING MACHINE LOADER 12/22/2023 7:55 PM Signed Notified of positive [...] Status:Closed by OBINNA FRAZIER on 12/22/23 Normal [facility] COVID AND INFLUENZA A/B AND RSV NAAT, ROUTINEon 12-22-2023 SARS-CoV-2 (COVID-19) RNA NYDIA+probe Ql (Unsp spec) COVID 19 RESULT: Not detected The method used is RT-PCR or an equivalent NAAT method. Reference Range (the expected result in uninfected individuals): Not detected INFLUENZA A PCR: Detected INFLUENZA B PCR: Not detected RSV PCR: Not detected Abnormal [facility] Comment on above: Performed By: #### C VFLRS ####[facility] LABCLIA [id number] [place] [address] [place] XR CHEST 2V [...] tissues: Unremarkable. IMPRESSION: No acute radiographic abnormality. Architectural Examiner: PSCManuel Transcribe Date/Time: Dec 22 2023 9:32A Dictated by : ALISSA REYES MD This examination was interpreted and the report reviewed and electronically signed by: ALISSA REYES MD on Dec 22 2023 9:34AM EST [id number] Normal [facility] XR Chest PA and Lateralon IMPRESSION: No acute radiographic abnormality. Architectural Examiner: JB Transcribe Date/Time: Dec 22 2023 9:32A [...] soft tissues: Unremarkable. DIVISION OF RADIOLOGY Provider, [facility] - 12/22/2023 * * *Final Report* [...] Unremarkable. IMPRESSION IMPRESSION: No acute radiographic abnormality. Architectural Examiner: [facility] Transcribe Date/Time: Dec 22 2023 9:32A Dictated by : ALISSA REYES MD This examination was interpreted and the report reviewed and electronically signed by: ALISSA REYES MD on Dec 22 2023 9:34AM EST [facility] Radiology Study observation (narrative) Venessa lopez [facility] XR Chest PA and LateralOrder ed By: Ccf Provider on 12-22-2023 [facility] Absolute lymphocyte countOrd ered By: Griselda Stewart on 08-24-2023 Lymphocytes Auto (Unsp spec) [#/Vol] 2.93 10*3/uL 0.83-4.51 [facility] Basophil percentageOrdered B y: Griselda Stewart on 08-24-2023 Basophils/100 WBC (Bld) 0.3 % 0-1 [facility] Bilirubin [Mass/Vol] 0.30 mg/dL 0.20-1.00 [facility] Comment on above: For patients on eltr ombopag therapy, use of [place] TBIL is not recommended. Chloride [Moles/Vol] 105 mmol/L 98-107 [facility] Eosinophils/100 WBC (Bld) 1.6 % 0-5 [facility] Glucose [Mass/Vol] 97 mg/dL 74-106 [facility] Lactate [Moles/Vol] 0.6 mmol/L 0.4-2.0 [facility] Neutrophils (Bld) [#/Vol] 9.9 10*3/uL 2.0-7.7 [facility] Neutrophils/100 WBC (Bld) 69.9 % 47-70 [facility] Potassium [Moles/Vol] 3.6 mmol/L 3.5-5.1 [facility] Protein [Mass/Vol] 7.7 g/dL 6.4-8.2 [facility] Sodium [Moles/Vol] 137 mmol/L 136-145 [facility] WBC (Bld) [#/Vol] 14.2 10*3/uL 4.4-11.0 [facility] Basophil percentage 0 SEEN /hpf 0-5 [facility] Bilirubin Test strip Ql (U)O rdered By: Griselda Stewart on 08-24-2023 Bilirubin Ql (U) Negative Negative [facility] Blood erythrocytes count (nu mber/volume)Ordered By: Griselda Stewart on 08-24-2023 RBC (Bld) [#/Vol] 4.53 10*6/uL 4.2-5.4 [facility] Blood hemoglobin measurement (mass/volume)Ordered By: Griselda Stewart on 08-24-2023 Hemoglobin (Bld) [Mass/Vol] 12.8 g/dL 12.0-15.0 [facility] Blood lymphocytes/100 leukoc ytesOrdered By: Griselda Stewart on 08-24-2023 Lymphocytes/100 WBC (Bld) 20.7 % 19-41 [facility] Blood monocytes/100 leukocyt esOrdered By: [facility] Stewart on 08-24-2023 Monocytes/100 WBC (Bld) 7.0 % 0-10 [facility] Blood platelet mean volumeOr dered By: Grsielda Stewart on 08-24-2023 Platelet mean volume (Bld) [Entitic vol] 11.7 fL 6.2-12.0 [facility] Determination of erythrocyte mean corpuscular volume (MCV)Ordered By: Griselda Stewart on 08-24-2023 MCV (RBC) [Entitic vol] 88.5 fL 81-99 [facility] Hematocrit Auto (Bld) [Volum e fraction]Ordered By: Griselda Stewart on 08-24-2023 Hematocrit (Bld) [Volume fraction] 40.1 % 37-47 [facility] Ketones Test strip Ql (U)Ord ered By: Griselda Stewart on 08-24-2023 Ketones Ql (U) Negative Negative [facility] Laboratory - Chemistry and C hemistry - challengeOrdered By: Griselda Stewart on 08-24-2023 ALP [Catalytic activity/Vol] 89 U/L 45-117 [facility] ALT [Catalytic activity/Vol] 28 U/L 13-56 [facility] CO2 [Moles/Vol] 28.0 mmol/L 21.0-32.0 [facility] Globulin (S) [Mass/Vol] 4.2 g/dL 2.2-4.2 [facility] Lipase [Catalytic activity/Vol] 57 U/L 13-75 [facility] Comment on above: Please note:LIPASE r evised reference range effective 23. New Lipase methodology. Expected to produce lower values than the previous assay method. NEW Reference Range: 13 - 75 U/L Urea nitrogen/Creatinine [Mass ratio] 17.4 mg/mg 10-20 [facility] Laboratory - Hematology and Cell countsOrdered By: Griselda Stewart on 08-24-2023 Erythrocyte distribution width (RBC) [Entitic vol] 41.0 fL 35.1-43.9 [facility] Erythrocyte distribution width (RBC) [Ratio] 12.7 % 11.6-14.6 [facility] Immature granulocytes/100 WBC (Bld) 0.500 % 0.0-0.9 [facility] Comment on above: IG% - Immature Granu locytes (promyelocytes, myelocytes and metamyelocytes) > 1% indicates that a LEFT SHIFT is Present. MCH (RBC) [Entitic mass] 28.3 pg 27.0-32.0 [facility] Nucleated RBC/100 WBC (Bld) [Ratio] 0 % 0-5 [facility] MCHC Auto (RBC) [Mass/Vol]Or dered By: Griselda Stewart on 08-24-2023 MCHC (RBC) [Mass/Vol] 31.9 g/dL 32-36 [facility] Mucus LM Ql (Urine sed)Order ed By: Griselda Stewart on 08-24-2023 Mucus Ql (Urine sed) RARE /hpf [facility] Nitrite Test strip Ql (U)Ord ered By: Griselda Stewart on 08-24-2023 Nitrite Ql (U) Negative Negative [facility] No Panel InformationOrdered By: Griselda Stewart on 08-24-2023 Estimated Creatinine Clearance Calc 80.51 ml/min [facility] Estimated GFR (MDRD) Amer 98 mL/min >60 [facility] Comment on above: GFR Calc Estimated GFR (MDRD) Non-Af Amer 81 mL/min >60 [facility] Comment on above: Non- GFR Calc Platelets bldOrdered By: Krystin Stewart on 08-24-2023 Platelets (Bld) [#/Vol] 273 10*3/uL 150-450 [facility] Protein Test strip Ql (U)Ord ered By: Griselda Stewart on 08-24-2023 Protein Ql (U) Negative Negative [facility] Serum or plasma albumin jamil urement (mass/volume)Ordered By: Krystinus Stewart on 08-24-2023 Albumin [Mass/Vol] 3.5 g/dL 3.2-5.0 [facility] Serum or plasma albumin/glob ulin mass ratioOrdered By: Rem Ungchalino on 08-24-2023 Albumin/Globulin [Mass ratio] 0.8 {ratio} 0.9-2.4 [facility] Serum or plasma calcium jamil urement (mass/volume)Ordered By: Remus Stewart on 08-24-2023 Calcium [Mass/Vol] 8.5 mg/dL 8.5-10.1 [facility] Serum or plasma creatinine m easurement (mass/volume)Ordered By: Remus Stewart on 08-24-2023 Creatinine [Mass/Vol] 0.80 mg/dL 0.55-1.02 [facility] Comment on above: The validity of the calculated GFR & GFRAA in patients over 70 years has not been determined. Clinical correlation is essential. Serum or plasma urea nitroge n measurement (mass/volume)Ordered By: Griselda Stewart on 08-24-2023 Urea nitrogen [Mass/Vol] 14 mg/dL 7-18 [facility] Squamous epithelial cells de tection in urine sediment by light microscopyOrdered By: Griselda Stewart on 08-24-2023 Epithelial cells.squamous LM Ql (Urine sed) 0-5 SEEN /hpf 5-10 [facility] Thin prep Papanicolaou smear with manual screeningOrdered By: Griselda Stewart on 08-24-2023 Thin prep Papanicolaou smear with manual screening 20 U/L 15-37 [facility] Thin prep Papanicolaou smear with manual screening 4 5-15 [facility] Urine blood detectionOrdered By: Remus Stewart on 08-24-2023 RBC Ql (U) 10 /ul Negative [facility] RBC Ql (U) 0-5 SEEN /hpf 0-5 [facility] Urine clarityOrdered By: Rem us Pat on 08-24-2023 Clarity (U) Sl. Cloudy Clear [facility] Urine color determinationOrd ered By: Griselda Stewart on 08-24-2023 Color (U) Yellow Yellow [facility] Urine glucose detectionOrder ed By: Griselda Stewart on 08-24-2023 Glucose Ql (U) Normal mg/dl Normal [facility] Urine leukocyte esterase det ection by dipstickOrdered By: Griselda Stewart on 08-24-2023 Leukocyte esterase Test strip Ql (U) Negative Negative [facility] Urine pHOrdered By: Griselda Martinez gur on 08-24-2023 pH (U) 5.0 [pH] 5.0 - 8.0 [facility] Urine sediment bacteria coun t by microscopy (number/high power field)Ordered By: Griselda Stewart on 08-24-2023 Bacteria LM.HPF (Urine sed) [#/Area] 1 /[HPF] None Seen [facility] Urine specific gravity measu rementOrdered By: Griselda Stewart on 08-24-2023 Specific gravity (U) [Rel density] 1.025 1.002-1.030 [facility] Urobilinogen Auto test strip Ql (U)Ordered By: Griselda Stewart on 08-24-2023 Urobilinogen Ql (U) Normal mg/dl Normal [facility] 25(OH)D3 SerPl-mCncon 2022 25-hydroxyvitamin D3 [Mass/Vol] 29.1 ng/mL Low 31.0-80.0 [facility] Comment on above: Order Comment: Speci men Type: BLOOD SPECIMENOrdering Facility: External Submitter Address: , , Result Comment: Clas sification of 25 OH Vitamin D status: Deficiency/Insufficiency: < or = 30 ng/ml. Sufficiency/Optimal Levels: 31-80 ng/mL Toxicity: > 100 ng/mL. Test performed by chemiluminescent immunoassay. Performed By: #### 1 989-3 ####[facility] LABCLIA [id number] [place] [address] [place] CBC panel Auto (Bld)on 07-07 Erythrocyte distribution width (RBC) [Ratio] 12.7 % Normal 11.5-15.0 [facility] Comment on above: Order Comment: Speci men Type: BLOOD SPECIMENOrdering Facility: External Submitter Address: , , Performed By: #### 5 8410-2 ####[facility] [id number] [address] [place] Hematocrit (Bld) [Volume fraction] 42.3 % Normal 36.0-46.0 [facility] Comment on above: Order Comment: Speci men Type: BLOOD SPECIMENOrdering Facility: External Submitter Address: , , Performed By: #### 5 8410-2 ####[facility] [id number] [address] STATES [place] [facility] Hemoglobin (Bld) [Mass/Vol] 13.5 g/dL Normal 11.5-15.5 [facility] Comment on above: Order Comment: Speci men Type: BLOOD SPECIMENOrdering Facility: External Submitter Address: , , Performed By: #### 5 8410-2 ####[facility] [id number] [address] [place] MCH (RBC) [Entitic mass] 28.3 pg Normal 26.0-34.0 [facility] Comment on above: Order Comment: Speci men Type: BLOOD SPECIMENOrdering Facility: External Submitter Address: , , Performed By: #### 5 8410-2 ####[facility] [id number] [address] [place] MCHC (RBC) [Mass/Vol] 31.9 g/dL Normal 30.5-36.0 [facility] Comment on above: Order Comment: Speci men Type: BLOOD SPECIMENOrdering Facility: External Submitter Address: , , Performed By: #### 5 8410-2 ####[facility] [id number] [address] STATES [place] [facility] MCV (RBC) [Entitic vol] 88.7 fL Normal 80.0-100.0 [facility] Comment on above: Order Comment: Speci men Type: BLOOD SPECIMENOrdering Facility: External Submitter Address: , , Performed By: #### 5 8410-2 ####[facility] LABCLIA [id number] [place] [address] [place] Nucleated RBC (Bld) [#/Vol] 10*3/uL Normal <0.01 [facility] Comment on above: Order Comment: Speci men Type: BLOOD SPECIMENOrdering Facility: External Submitter Address: , , Performed By: #### 5 8410-2 ####[facility] LABIA [id number] [place] [address] [place] Platelet mean volume (Bld) [Entitic vol] 11.8 fL Normal 9.0-12.7 [facility] Comment on above: Order Comment: Speci men Type: BLOOD SPECIMENOrdering Facility: External Submitter Address: , , Performed By: #### 5 8410-2 ####[facility] LABIA [id number] [place] [address] [place] Platelets (Bld) [#/Vol] 254 10*3/uL Normal 150-400 [facility] Comment on above: Order Comment: Speci men Type: BLOOD SPECIMENOrdering Facility: External Submitter Address: , , Performed By: #### 5 8410-2 ####[facility] LABIA [id number] [place] [address] [place] RBC (Bld) [#/Vol] 4.77 10*6/uL Normal 3.90-5.20 [facility] Comment on above: Order Comment: Speci men Type: BLOOD SPECIMENOrdering Facility: External Submitter Address: , , Performed By: #### 5 8410-2 ####[facility] LABIA [id number] [place] [address] [place] WBC (Bld) [#/Vol] 8.49 10*3/uL Normal 3.70-11.00 [facility] Comment on above: Order Comment: Speci men Type: BLOOD SPECIMENOrdering Facility: External Submitter Address: , , Performed By: #### 5 8410-2 ####[facility] LABCLIA [id number] [place] [address] [place] CK SerPl-cCncon 07-07-2023 CK [Catalytic activity/Vol] 77 U/L Normal 42-196 [facility] Comment on above: Order Comment: Speci men Type: BLOOD SPECIMENOrdering Facility: External Submitter Address: , , Performed By: #### 2 157-6, , 2132-05 ####[facility] LABCLIA [id number] [place] [id number] [place] Comprehensive metabolic 2000 panelon 07-07-2023 Albumin [Mass/Vol] 4.4 g/dL Normal 3.9-4.9 [facility] Comment on above: Order Comment: Speci men Type: BLOOD SPECIMENOrdering Facility: External Submitter Address: , , Performed By: #### 2 157-6, , 2132-05 ####[facility] LABCLIA [id number] [place] [id number] [place] ALP [Catalytic activity/Vol] 98 U/L Normal 34-123 [facility] Comment on above: Order Comment: Speci men Type: BLOOD SPECIMENOrdering Facility: External Submitter Address: , , Performed By: #### 2 157-6, , 2132-05 ####[facility]CLIA [id number] [address] [address] [place] ALT [Catalytic activity/Vol] 57 U/L High 7-38 [facility] Comment on above: Order Comment: Speci men Type: BLOOD SPECIMENOrdering Facility: External Submitter Address: , , Performed By: #### 2 157-6, , 2132-05 ####[facility]CL[facility] [id number] [address] [address] [place] Anion gap [Moles/Vol] 11 mmol/L Normal 9-18 [facility] Comment on above: Order Comment: Speci men Type: BLOOD SPECIMENOrdering Facility: External Submitter Address: , , Performed By: #### 2 157-6, , 2132-05 ####[facility]CLIA [id number] [address] [address] [place] AST [Catalytic activity/Vol] 43 U/L High 13-35 [facility] Comment on above: Order Comment: Speci men Type: BLOOD SPECIMENOrdering Facility: External Submitter Address: , , Performed By: #### 2 157-6, , 2132-05 ####[facility] [id number] [place] [address] [place] Bilirubin [Mass/Vol] 0.6 mg/dL Normal 0.2-1.3 [facility] Comment on above: Order Comment: Speci men Type: BLOOD SPECIMENOrdering Facility: External Submitter Address: , , Performed By: #### 2 157-6, , 2132-05 ####[facility] [id number] [place] [address] [place] Calcium [Mass/Vol] 9.5 mg/dL Normal 8.5-10.2 [facility] Comment on above: Order Comment: Speci men Type: BLOOD SPECIMENOrdering Facility: External Submitter Address: , , Performed By: #### 2 157-6, , 2132-05 ####[facility] [id number] [place] [id number] [place] Chloride [Moles/Vol] 102 mmol/L Normal 97-105 [facility] Comment on above: Order Comment: Speci men Type: BLOOD SPECIMENOrdering Facility: External Submitter Address: , , Performed By: #### 2 157-6, , 2132-05 ####[facility] [id number] [address] [address] [place] CO2 [Moles/Vol] 23 mmol/L Normal 22-30 [facility] Comment on above: Order Comment: Attila freitas Type: BLOOD SPECIMENOrdering Facility: External Submitter Address: , , Performed By: #### 2 157-6, 10457-5, 2132-05 ####[facility] [id number] [address] [address] [place] Creatinine [Mass/Vol] 0.71 mg/dL Normal 0.58-0.96 [facility] Comment on above: Order Comment: Jessicai men Type: BLOOD SPECIMENOrdering Facility: External Submitter Address: , , Performed By: #### 2 157-6, , 2132-05 ####[facility] LABIA [id number] [address] OF [facility] Creatinine and Glomerular filtration rate.predicted panel (S/P/Bld) 105 mL/min/1.73m??? Normal >=60 [facility] Comment on above: Order Comment: Specraul freitas [...] actual GFR. Performed By: #### 2 157-6, 76086-1, 2132-05 ####[facility] [id number] [address] [address] [place] Glucose [Mass/Vol] 98 mg/dL Normal 74-99 [facility] Comment on above: Order Comment: Jessicai zena Type: BLOOD SPECIMENOrdering Facility: External Submitter Address: , , Result Comment: The [place] Diabetes Association (ADA) provides guidance for cutoff [...] Standards of Medical Care in Diabetes 2016, [place] Diabetes Association. Diabetes Care. 2016.39(Suppl 1). Performed By: #### 2 157-6, , 2132-05 ####[facility] [id number] [place] [address] [place] Potassium [Moles/Vol] 4.5 mmol/L Normal 3.7-5.1 [facility] Comment on above: Order Comment: Attila freitas Type: BLOOD SPECIMENOrdering Facility: External Submitter Address: , , Performed By: #### 2 157-6, , 2132-05 ####[facility] [id number] [place] [address] [place] Protein [Mass/Vol] 7.2 g/dL Normal 6.3-8.0 [facility] Comment on above: Order Comment: Attila freitas Type: BLOOD SPECIMENOrdering Facility: External Submitter Address: , , Performed By: #### 2 157-6, , 2132-05 ####[facility] [id number] [address] [address] [place] Sodium [Moles/Vol] 136 mmol/L Normal 136-144 [facility] Comment on above: Order Comment: Attila freitas Type: BLOOD SPECIMENOrdering Facility: External Submitter Address: , , Performed By: #### 2 157-6, , 2132-05 ####[facility] [id number] [place] [address] [place] Urea nitrogen [Mass/Vol] 16 mg/dL Normal 7-21 [facility] Comment on above: Order Comment: Speci men Type: BLOOD SPECIMENOrdering Facility: External Submitter Address: , , Performed By: #### 2 157-6, 41567-9, 2132-9 ####[facility] [id number] [place] [address] [place] Cyclic citrullinated peptide IgG Qnon 07-07-2023 [facility] ANTIBODY IGG QUALITATIVE Negative Normal Negative [facility] Comment on above: Order Comment: Speci men Type: BLOOD SPECIMENOrdering Facility: External Submitter Address: , , Performed By: #### 3 3935-8 ####[facility] LABIA [id number] [place] [address] [place] Estradiol SerPl-mCncon 07-07 E2 [Mass/Vol] 123 pg/mL Normal [facility] Comment on above: Order Comment: Speci men [...] 3243 pg/mL Second trimester : 1561 to 14628 pg/mL Third trimester : 8285 to >75792 pg/mL Post-menopausal Estradiol reference range: < 41 pg/mL Reference: 1. Estradiol - E2 (Estradiol III) [package insert V 3.0 Kyrgyz]. [facility], [place], [place], February 2016. Performed By: #### 3 051-0, 51942-4, 2243-4, 3024-7 ####[facility] [id number] [place] [address] [place] FSH SerPl-aCncon 07-07-2023 Follitropin Qn 16.5 m[IU]/mL Normal See comment [facility] Comment on above: Order Comment: Speci men Type: BLOOD SPECIMENOrdering Facility: External Submitter Address: , , Result Comment: Lars thurston range: Follicular: 3.5-12.5 mIU/mL Ovulation: 4.7-21.5 mIU/mL Luteal: 1.7-7.7 mIU/mL Postmenopausal: 25.8-134.8 mIU/mL Performed By: #### 3 051-0, 27828-2, 2243-4, 3024-7 ####[facility] [id number] [address] [place] HLA-B27 PCRon 07-07-2023 HLA-B27 DNA RESULT Negative Normal [facility] Comment on above: Order Comment: Speci [...] developed and its performance characteristics determined by [employer]. The test has not been cleared or approved by the [place] FDA. However, FDA approval was not necessary since this lab is certified under CLIA for high complexity testing. Test performed by: [facility], [address], [place] [address], CLIA [id number] Performed By: #### B 27PCR ####[facility] [id number] [place] [address] [place] Nuclear Ab IA Ql (S)on 07-07 NEENA SCR QUAL Negative Normal Negative [facility] Comment on above: Order Comment: Speci men Type: BLOOD SPECIMENOrdering Facility: External Submitter Address: , , Result Comment: The qualitative antinuclear antibody screen test performed using the following antigens: dsDNA, Chromatin, Ribosomal P, SS-A 60, SS-A 52, SS-B, Sm, SmRNP, VOCATIONAL INSTRUCTOR A, VOCATIONAL INSTRUCTOR 68, Scl-70, Estefany-1, and Centromere B. Methodology: Multiplex flow immunoassay. Performed By: #### 4 7383-5 ####[facility] [id number] [place] [address] [place] Rheumatoid fact SerPl-aCncon 07-07-2023 Rheumatoid factor Qn [IU]/mL Normal <16 [facility] Comment on above: Order Comment: Speci men Type: BLOOD SPECIMENOrdering Facility: External Submitter Address: , , Performed By: #### 1 1572-5, 3016-3, 2986-8 ####[facility] [id number] [place] [address] [place] T3Free SerPl-mCncon 07-07-20 23 Free T3 [Mass/Vol] 4.6 pg/mL High 2.3-4.1 [facility] Comment on above: Order Comment: Speci men Type: BLOOD SPECIMENOrdering Facility: External Submitter Address: , , Performed By: #### 3 051-0, 99041-1, 2243-4, 3024-7 ####[facility] [id number] [place] [address] [place] T4 Free SerPl-mCncon 023 Free T4 [Mass/Vol] 0.9 ng/dL Normal 0.9-1.7 [facility] Comment on above: Order Comment: Speci men Type: BLOOD SPECIMENOrdering Facility: External Submitter Address: , , Performed By: #### 3 051-0, 36381-7, 2243-4, 3024-7 ####[facility] LABIA [id number] [place] [address] [place] TSH SerPl-aCncon 07-07-2023 TSH Qn 0.929 m[IU]/L Normal 0.270-4.200 [facility] Comment on above: Order Comment: Speci men [...] Bliss, et al. 2017 Guidelines of the [place] Thyroid Association for the Diagnosis and Management of Thyroid Disease during and the . Thyroid, 2017:27:3:315-389. Performed By: #### 1 1572-5, 3016-3, 2986-8 ####[facility] [id number] [place] [address] [place] Testost SerPl-mCncon 023 Testosterone [Mass/Vol] 176 ng/dL High <40 [facility] Comment on above: Order Comment: Speci men Type: BLOOD SPECIMENOrdering Facility: External Submitter Address: , , Result Comment: Resu lt rechecked. Performed By: #### 1 1572-5, 3016-3, 2986-8 ####[facility] LABIA [id number] [place] [address] [place] Vit B12 SerPl-mCncon 023 Cobalamin (Vitamin B12) [Mass/Vol] 684 pg/mL Normal 232-1245 [facility] Comment on above: Order Comment: Speci men Type: BLOOD SPECIMENOrdering Facility: External Submitter Address: , , Performed By: #### 2 157-6, 64854-9, 2132-9 ####[facility]CL[facility] [id number] [address] [place] cCP IgG SerPl-aCncon 10-12-2 023 Cyclic citrullinated peptide IgG Qn <15 Normal <20 [facility] Comment on above: Order Comment: Speci men Type: BLOOD SPECIMENOrdering Facility: External Submitter Address: , , Performed By: #### 3 3935-8 ####[facility]CLIA [id number] [address] [place] Basophil percentageOrdered B y: Bo Young on 04-28-2023 Chloride [Moles/Vol] 108 mmol/L 98-107 [facility] Glucose [Mass/Vol] 92 mg/dL 74-106 [facility] Potassium [Moles/Vol] 4.0 mmol/L 3.5-5.1 [facility] Sodium [Moles/Vol] 139 mmol/L 136-145 [facility] WBC (Bld) [#/Vol] 8.8 10*3/uL 4.4-11.0 [facility] Blood erythrocytes count (nu mber/volume)Ordered By: Bo Young on 04-28-2023 RBC (Bld) [#/Vol] 4.45 10*6/uL 4.2-5.4 [facility] Blood hemoglobin measurement (mass/volume)Ordered By: Bo Young on 04-28-2023 Hemoglobin (Bld) [Mass/Vol] 13.0 g/dL 12.0-15.0 [facility] Blood platelet mean volumeOr dered By: Bo Young on 04-28-2023 Platelet mean volume (Bld) [Entitic vol] 11.5 fL 6.2-12.0 [facility] Determination of erythrocyte mean corpuscular volume (MCV)Ordered By: Bo Young on 04-28-2023 MCV (RBC) [Entitic vol] 87.6 fL 81-99 [facility] Hematocrit Auto (Bld) [Volum e fraction]Ordered By: Bo Young on 04-28-2023 Hematocrit (Bld) [Volume fraction] 39.0 % 37-47 [facility] Laboratory - Chemistry and C hemistry - challengeOrdered By: Bo Young on 04-28-2023 CO2 [Moles/Vol] 24.0 mmol/L 21.0-32.0 [facility] Urea nitrogen/Creatinine [Mass ratio] 17.2 mg/mg 10-20 [facility] - Hematology and Cell countsOrdered By: Bo Young on 04-28-2023 Erythrocyte distribution width (RBC) [Entitic vol] 39.8 fL 35.1-43.9 [facility] Erythrocyte distribution width (RBC) [Ratio] 12.5 % 11.6-14.6 [facility] MCH (RBC) [Entitic mass] 29.2 pg 27.0-32.0 [facility] MCHC Auto (RBC) [Mass/Vol]Or dered By: Bo Young on 04-28-2023 MCHC (RBC) [Mass/Vol] 33.3 g/dL 32-36 [facility] No Panel InformationOrdered By: Bo Young on 04-28-2023 Estimated Creatinine Clearance Calc 85.67 ml/min [facility] Estimated GFR (MDRD) Amer 105 mL/min >60 [facility] Comment on above: GFR Calc Estimated GFR (MDRD) Non-Af Amer 87 mL/min >60 [facility] Comment on above: Non- GFR Calc Platelets bldOrdered By: Bo Young on 04-28-2023 Platelets (Bld) [#/Vol] 256 10*3/uL 150-450 [facility] Serum or plasma calcium jamil urement (mass/volume)Ordered By: Bo Young on 04-28-2023 Calcium [Mass/Vol] 8.4 mg/dL 8.5-10.1 [facility] Serum or plasma creatinine m easurement (mass/volume)Ordered By: Bo Young on 04-28-2023 Creatinine [Mass/Vol] 0.76 mg/dL 0.55-1.02 [facility] Comment on above: The validity of the calculated GFR & GFRAA in patients over 70 years has not been determined. Clinical correlation is essential. Serum or plasma urea nitroge n measurement (mass/volume)Ordered By: Bo Young on 04-28-2023 Urea nitrogen [Mass/Vol] 13 mg/dL 7-18 [facility] Thin prep Papanicolaou smear with manual screeningOrdered By: Bo Young on 04-28-2023 Thin prep Papanicolaou smear with manual screening 7 5-15 [facility] Absolute lymphocyte countOrd ered By: Dr. Velazquez on 02-17-2023 Lymphocytes Auto (Unsp spec) [#/Vol] 1.58 10*3/uL 0.83-4.51 [facility] Basophil percentageOrdered B y: Dr. Velazquez on 02-17-2023 Basophils/100 WBC (Bld) 0.6 % 0-1 [facility] Bilirubin [Mass/Vol] 0.60 mg/dL 0.20-1.00 [facility] Comment on above: For patients on eltr ombopag therapy, use of [place] TBIL is not recommended. Chloride [Moles/Vol] 109 mmol/L 98-107 [facility] Cholesterol [Mass/Vol] 226 mg/dL <200 [facility] Comment on above: <200 mg/dL Desirable 200-240 mg/dL Borderline >240 mg/dL High Risk Eosinophils/100 WBC (Bld) 3.2 % 0-5 [facility] Glucose [Mass/Vol] 103 mg/dL 74-106 [facility] Comment on above: Fasting Glucose resu lt from 100 to 125 mg/dL suggests IMPAIRED HOMEOSTASIS per A.D.A. criteria. Neutrophils (Bld) [#/Vol] 5.8 10*3/uL 2.0-7.7 [facility] Neutrophils/100 WBC (Bld) 69.4 % 47-70 [facility] Potassium [Moles/Vol] 3.6 mmol/L 3.5-5.1 [facility] Protein [Mass/Vol] 7.7 g/dL 6.4-8.2 [facility] Sodium [Moles/Vol] 140 mmol/L 136-145 [facility] Testosterone [Mass/Vol] 9.88 ng/dL [facility] Comment on above: CENTRAL 90% REFERENC E RANGES MALE AGE <50 197.44 - 669.58 ng/dL MALE AGE > or = 50 187.72 - 684.19 ng/dL FEMALE AGE <50 8.38 - 35.01 ng/dL FEMALE AGE > or = 50 <7.00 - 35.92 ng/dL Effective as of 04/21/21 Triglyceride [Mass/Vol] 125 mg/dL <199 [facility] Comment on above: The drugs N-Acetylcy steine and Metamizole may falsely depress this assay.Serum Triglycerides Reference Interval Normal <150 mg/dL Borderline high 150 - 199 mg/dL High 200 - 499 mg/dL Very High > or = 500 mg/dL WBC (Bld) [#/Vol] 8.3 10*3/uL 4.4-11.0 [facility] Blood erythrocytes count (nu mber/volume)Ordered By: Dr. Velazquez on 02-17-2023 RBC (Bld) [#/Vol] 4.51 10*6/uL 4.2-5.4 [facility] Blood hemoglobin measurement (mass/volume)Ordered By: Dr. Velazquez on 02-17-2023 Hemoglobin (Bld) [Mass/Vol] 13.0 g/dL 12.0-15.0 [facility] Blood lymphocytes/100 leukoc ytesOrdered By: Dr. Velazquez on 02-17-2023 Lymphocytes/100 WBC (Bld) 19.0 % 19-41 [facility] Blood monocytes/100 leukocyt esOrdered By: Dr. Velazquez on 02-17-2023 Monocytes/100 WBC (Bld) 7.4 % 0-10 [facility] Blood platelet mean volumeOr dered By: Dr. Velazquez on 02-17-2023 Platelet mean volume (Bld) [Entitic vol] 11.2 fL 6.2-12.0 [facility] Determination of erythrocyte mean corpuscular volume (MCV)Ordered By: Dr. Velazquez on 02-17-2023 MCV (RBC) [Entitic vol] 90.9 fL 81-99 [facility] Hematocrit Auto (Bld) [Volum e fraction]Ordered By: Dr. Velazquez on 02-17-2023 Hematocrit (Bld) [Volume fraction] 41.0 % 37-47 [facility] Laboratory - Chemistry and C hemistry - challengeOrdered By: Dr. Velazquez on 02-17-2023 ALP [Catalytic activity/Vol] 93 U/L 45-117 [facility] ALT [Catalytic activity/Vol] 23 U/L 13-56 [facility] CO2 [Moles/Vol] 24.0 mmol/L 21.0-32.0 [facility] Cobalamin (Vitamin B12) [Mass/Vol] 412 pg/mL 211-911 [facility] Free T4 [Mass/Vol] 0.89 ng/dL 0.76-1.46 [facility] Globulin (S) [Mass/Vol] 4.2 g/dL 2.2-4.2 [facility] Urea nitrogen/Creatinine [Mass ratio] 18.2 mg/mg 10-20 [facility] - Hematology and Cell countsOrdered By: Dr. Velazquez on 02-17-2023 Erythrocyte distribution width (RBC) [Entitic vol] 43.2 fL 35.1-43.9 [facility] Erythrocyte distribution width (RBC) [Ratio] 13.0 % 11.6-14.6 [facility] Immature granulocytes/100 WBC (Bld) 0.400 % 0.0-0.9 [facility] Comment on above: IG% - Immature Granu locytes (promyelocytes, myelocytes and metamyelocytes) > 1% indicates that a LEFT SHIFT is Present. MCH (RBC) [Entitic mass] 28.8 pg 27.0-32.0 [facility] Nucleated RBC/100 WBC (Bld) [Ratio] 0 % 0-5 [facility] MCHC Auto (RBC) [Mass/Vol]Or dered By: Dr. Velazquez on 02-17-2023 MCHC (RBC) [Mass/Vol] 31.7 g/dL 32-36 [facility] No Panel InformationOrdered By: Dr. Velazquez on 02-17-2023 Dehydroepiandrosterone Sulfate 26.6 ug/dL 41.2-243.7 [facility] Comment on above: Performed at: [address] [id number] Director: Angel Campos PhD, Phone: [phone] Estimated GFR (MDRD) Amer 96 mL/min >60 [facility] Comment on above: GFR Calc Estimated GFR (MDRD) Non-Af Amer 79 mL/min >60 [facility] Comment on above: Non- GFR Calc Follicle Stimulating Hormone 13.3 mIU/mL [facility] Comment on above: NORMAL REFERENCE RAN GES FEMALE FOLLICULAR 2.3 - 12.6 mIU/mL MID-CYCLE PEAK 5.2 - 17.5 mIU/mL LUTEAL 1.7 - 12.9 mIU/mL POST-MENOPAUSAL ON MHT 5.9 - 72.8 mIU/mL NOT ON MHT 12.7 - 132.2 mlU/mL MALE 0.7 - 10.8 mIU/mL Free Triiodothyronine (T3) pg/dL 2.5 pg/mL 2.18-3.98 [facility] Luteinizing Hormone 5.6 mIU/mL [facility] Comment on above: NORMAL REFERENCE RAN [facility] FEMALE FOLLICULAR 1.9 - 26.2 mIU/mL MID-CYCLE PEAK 22.8 - 76.1 mIU/mL LUTEAL 0.6 - 16.6 mIU/mL POST-MENOPAUSAL ON MHT 1.1 - 52.4 mIU/mL NOT ON MHT 8.6 - 61.8 mIU/mL MALE 1.2 - 10.6 mIU/mL Thyroid Stimulating Hormone (TSH) 1.70 uIU/mL 0.358-3.74 [facility] Vitamin D 25-Hydroxy 33.0 ng/mL [facility] Comment on above: Vitamin D 25(OH) Sta tus Range Deficiency <20 ng/mL (50nmol/L) Insufficiency 20 - 30 ng/mL (50 - 75 nmol/L) Sufficiency 30 - 100 ng/mL (75 - 250 nmol/L) Toxicity >100 ng/mL (>250 nmol/L) Platelets bldOrdered By: Dr. Velazquez on 02-17-2023 Platelets (Bld) [#/Vol] 283 10*3/uL 150-450 [facility] Serum or plasma albumin jamil urement (mass/volume)Ordered By: Dr. Velazquez on 02-17-2023 Albumin [Mass/Vol] 3.5 g/dL 3.2-5.0 [facility] Serum or plasma albumin/glob ulin mass ratioOrdered By: Dr. Velazquez on 02-17-2023 Albumin/Globulin [Mass ratio] 0.8 {ratio} 0.9-2.4 [facility] Serum or plasma calcium jamil urement (mass/volume)Ordered By: Dr. Velazquez on 02-17-2023 Calcium [Mass/Vol] 8.9 mg/dL 8.5-10.1 [facility] Serum or plasma cholesterol in HDL measurement (mass/volume)Ordered By: Dr. Velazquez on 02-17-2023 Cholesterol in HDL [Mass/Vol] 55 mg/dL >40 [facility] Comment on above: The drugs N-Acetylcy steine and Metamizole may falsely depress this assay. Reference Range HDL <40 mg/dL Low HDL Cholesterol HDL >or= 60 mg/dL High HDL Cholesterol Serum or plasma cholesterol in VLDL measurement (mass/volume)Ordered By: Dr. Velazquez on 02-17-2023 Cholesterol in VLDL [Mass/Vol] 25 mg/dL 5-40 [facility] Serum or plasma cortisol satnam surement (mass/volume)Ordered By: Dr. Velazquez on 02-17-2023 Cortisol [Mass/Vol] 24.40 ug/dL 3.44-22.45 [facility] Comment on above: Adult (AM) 5.27 - 22 .45 ug/dL Adult (PM) 3.44 - 16.76 ug/dLPlease note revised CORTISOL reference range effective 2019. Serum or plasma creatinine m easurement (mass/volume)Ordered By: Dr. Velazquez on 02-17-2023 Creatinine [Mass/Vol] 0.82 mg/dL 0.55-1.02 [facility] Comment on above: The validity of the calculated GFR & GFRAA in patients over 70 years has not been determined. Clinical correlation is essential. Serum or plasma estradiol (E 2) measurement (mass/volume)Ordered By: Dr. Velazquez on 02-17-2023 E2 [Mass/Vol] 48.1 pg/mL [facility] Comment on above: NORMAL REFERENCE RAN GES [...] Cholesterol in LDL [Mass/Vol] 146 mg/dL 0-130 [facility] Serum or plasma urea nitroge n measurement (mass/volume)Ordered By: Dr. Velazquez on 02-17-2023 Urea nitrogen [Mass/Vol] 15 mg/dL 7-18 [facility] Thin prep Papanicolaou smear with manual screeningOrdered By: Dr. Velazquez on 02-17-2023 Thin prep Papanicolaou smear with manual screening 18 U/L 15-37 [facility] Thin prep Papanicolaou smear with manual screening 7 5-15 [facility] Whole blood hemoglobin A1c/t otal hemoglobin ratio (mass fraction)Ordered By: Dr. Velazquez on 02-17-2023 HbA1c (Bld) [Mass fraction] 5.3 % 3.8-5.6 [facility] Comment on above: Normal < 5.7 % Predi abetic 5.7 - 6.4 % Diabetic >or= 6.5 % Please note range changes. HCG QUAL UR B/Oon 08-05-2022 status Negative neg - pos Venessa lopez [facility] Quality Check Yes [facility] OBSOLETEon 07-12-2021 OBSOLETE Refill (RHBATH) MENDOZA JOHNSON ([id number]) 1975 F Date Time Provider Department 07/12/21 [...] 06/19/2021 Next Appointment: 06/21/2022found Patient Phone numbers: [phone] (home) Request is for script(s) to be [...] Status:Closed by ELIANE MO on 07/13/21 Normal [facility] BLOOD TB SCREEN, INCUBATEDon 04-28-2021 M. tuberculosis tuberculin stim IFN-g Ql (Bld) Negative Normal NEGAT [facility] Comment on above: Order Comment: Speci men Type: BLOOD SPECIMEN Performed By: #### 4 537-7 #### [facility] CLIA [id number] [address] [place] [address] MITOGEN MINUS NIL >10 Normal [facility] Comment on above: Order Comment: Speci men Type: BLOOD SPECIMEN Performed By: #### 4 537-7 #### [facility] CLIA [id number] [address] [place] [address] TB INTERPRETATION No evidence of current or previous infection with Mycobacterium tuberculosis. Normal [facility] Comment on above: Order Comment: Speci men Type: BLOOD SPECIMEN Performed By: #### 4 537-7 #### [facility] CLIA [id number] [address] [place] [address] TB NIL 0.07 IU/mL Normal [facility] Comment on above: Order Comment: Speci men Type: BLOOD SPECIMEN Performed By: #### 4 537-7 #### [facility] CLIA [id number] [address] [place] [address] TB1 AG MINUS NIL 0.00 IU/mL Normal <0.35 [facility] Comment on above: Order Comment: Speci men Type: BLOOD SPECIMEN Performed By: #### 4 537-7 #### [facility] CLIA [id number] [address] [place] [address] TB2 AG MINUS NIL 0.00 IU/mL Normal <0.35 [facility] Comment on above: Order Comment: Speci men Type: BLOOD SPECIMEN Performed By: #### 4 537-7 #### [facility] CLIA [id number] [address] [place] [address] CBC W Auto Differential pane l (Bld)on 04-28-2021 Basophils (Bld) [#/Vol] 0.05 10*3/uL Normal <0.11 [facility] Comment on above: Order Comment: Speci men Type: BLOOD SPECIMEN Performed By: #### 4 537-7 #### [facility] CLIA [id number] [address] [place] [address] Basophils/100 WBC (Bld) 0.5 % Normal [facility] Comment on above: Order Comment: Speci men Type: BLOOD SPECIMEN Performed By: #### 4 537-7 #### [facility] CLIA [id number] [address] [place] [address] Differential cell count method Nom (Bld) Auto Normal [facility] Comment on above: Order Comment: Speci men Type: BLOOD SPECIMEN Performed By: #### 4 537-7 #### [facility] CLIA [id number] [address] [place] [address] Eosinophils (Bld) [#/Vol] 0.28 10*3/uL Normal <0.46 [facility] Comment on above: Order Comment: Speci men Type: BLOOD SPECIMEN Performed By: #### 4 537-7 #### [facility] CLIA [id number] [address] [place] [address] Eosinophils/100 WBC (Bld) 2.9 % Normal [facility] Comment on above: Order Comment: Speci men Type: BLOOD SPECIMEN Performed By: #### 4 537-7 #### [facility] CLIA [id number] [address] [place] [address] Erythrocyte distribution width (RBC) [Ratio] 13.2 % Normal 11.5-15.0 [facility] Comment on above: Order Comment: Speci men Type: BLOOD SPECIMEN Performed By: #### 4 537-7 #### [facility] CLIA [id number] [address] [place] [address] Hematocrit (Bld) [Volume fraction] 41.7 % Normal 36.0-46.0 [facility] Comment on above: Order Comment: Speci men Type: BLOOD SPECIMEN Performed By: #### 4 537-7 #### [facility] CLIA [id number] [address] [place] [address] Hemoglobin (Bld) [Mass/Vol] 12.9 g/dL Normal 11.5-15.5 [facility] Comment on above: Order Comment: Speci men Type: BLOOD SPECIMEN Performed By: #### 4 537-7 #### [facility] CLIA [id number] [address] [place] [address] IMMATURE GRAN % 0.5 % Normal [facility] Comment on above: Order Comment: Speci men Type: BLOOD SPECIMEN Performed By: #### 4 537-7 #### [facility] CLIA [id number] [address] [place] [address] IMMATURE GRAN ABS 0.05 k/uL Normal <0.10 [facility] Comment on above: Order Comment: Speci men Type: BLOOD SPECIMEN Performed By: #### 4 537-7 #### [facility] CLIA [id number] [address] [place] [address] Lymphocytes (Bld) [#/Vol] 2.26 10*3/uL Normal 1.00-4.0 0 [facility] Comment on above: Order Comment: Speci men Type: BLOOD SPECIMEN Performed By: #### 4 537-7 #### [facility] CLIA [id number] [address] [place] [address] Lymphocytes/100 WBC (Bld) 23.7 % Normal [facility] Comment on above: Order Comment: Speci men Type: BLOOD SPECIMEN Performed By: #### 4 537-7 #### [facility] CLIA [id number] [address] [place] [address] MCH (RBC) [Entitic mass] 27.8 pg Normal 26.0-34.0 [facility] Comment on above: Order Comment: Speci men Type: BLOOD SPECIMEN Performed By: #### 4 537-7 #### [facility] CLIA [id number] [address] [place] [address] MCHC (RBC) [Mass/Vol] 30.9 g/dL Normal 30.5-36.0 [facility] Comment on above: Order Comment: Speci men Type: BLOOD SPECIMEN Performed By: #### 4 537-7 #### [facility] CLIA [id number] [address] [place] [address] MCV (RBC) [Entitic vol] 89.9 fL Normal 80.0-100.0 [facility] Comment on above: Order Comment: Speci men Type: BLOOD SPECIMEN Performed By: #### 4 537-7 #### [facility] CLIA [id number] [address] [place] [address] Monocytes (Bld) [#/Vol] 0.62 10*3/uL Normal <0.87 [facility] Comment on above: Order Comment: Speci men Type: BLOOD SPECIMEN Performed By: #### 4 537-7 #### [facility] CLIA [id number] [address] [place] [address] Monocytes/100 WBC (Bld) 6.5 % Normal [facility] Comment on above: Order Comment: Speci men Type: BLOOD SPECIMEN Performed By: #### 4 537-7 #### [facility] CLIA [id number] [address] [place] [address] Neutrophils (Bld) [#/Vol] 6.26 10*3/uL Normal 1.45-7.5 0 [facility] Comment on above: Order Comment: Speci men Type: BLOOD SPECIMEN Performed By: #### 4 537-7 #### [facility] CLIA [id number] [address] [place] [address] Neutrophils/100 WBC (Bld) 65.9 % Normal [facility] Comment on above: Order Comment: Speci men Type: BLOOD SPECIMEN Performed By: #### 4 537-7 #### [facility] CLIA [id number] [address] [place] [address] Nucleated RBC (Bld) [#/Vol] 10*3/uL Normal <0.01 [facility] Comment on above: Order Comment: Speci men Type: BLOOD SPECIMEN Performed By: #### 4 537-7 #### [facility] CLIA [id number] [address] [place] [address] Nucleated RBC/100 WBC (Bld) [Ratio] 0.0 /100 WBC Normal 0.0 [facility] Comment on above: Order Comment: Speci men Type: BLOOD SPECIMEN Performed By: #### 4 537-7 #### [facility] CLIA [id number] [address] [place] [address] Platelet mean volume (Bld) [Entitic vol] 12.3 fL Normal 9.0-12.7 [facility] Comment on above: Order Comment: Speci men Type: BLOOD SPECIMEN Performed By: #### 4 537-7 #### [facility] CLIA [id number] [address] [place] [address] Platelets (Bld) [#/Vol] 285 10*3/uL Normal 150-400 [facility] Comment on above: Order Comment: Speci men Type: BLOOD SPECIMEN Performed By: #### 4 537-7 #### [facility] CLIA [id number] [address] [place] [address] RBC (Bld) [#/Vol] 4.64 10*6/uL Normal 3.90-5.20 [facility] Comment on above: Order Comment: Speci men Type: BLOOD SPECIMEN Performed By: #### 4 537-7 #### [facility] CLIA [id number] [address] [place] [address] WBC (Bld) [#/Vol] 9.52 10*3/uL Normal 3.70-11.00 [facility] Comment on above: Order Comment: Speci men Type: BLOOD SPECIMEN Performed By: #### 4 537-7 #### [facility] CLIA [id number] [address] [place] [address] CCP ANTIBODY IGGon 1 Cyclic citrullinated peptide IgG Qn <15 Normal <20 [facility] Comment on above: Order Comment: Speci men Type: BLOOD SPECIMEN Result Comment: < 20 units: Negative 20-39 units: Weak Positive 40-59 units: Moderate Positive > 60 units: Strong Positive The following results were obtained with the Proximiant QUANTA Lite CCP3 IgG SAMANTHA. Anti-CCP values obtained with different manufacturers' assay methods may not be used interchangeably. The magnitude of the reported IgG levels cannot be correlated to an endpoint titer. Performed By: #### V ITD #### [facility] CLIA [id number] [address] [place] [address] CK CREATINE KINASEon 021 CK [Catalytic activity/Vol] 73 U/L Normal 42-196 [facility] Comment on above: Order Comment: Speci men Type: BLOOD SPECIMEN Performed By: #### 4 537-7 #### [facility] CLIA [id number] [address] [place] [address] CNOVon 04-28-2021 CNOV Office Visit (RHBATH ) MENDOZA JOHNSON ([id number]) 1975 F Date Time Provider Department 04/28/21 [...] Laterality Date - COLONOSCOP W/ OR W/O [facility] SPEC 06/07/2014 repeat 10 yrs - LAPAROSCOPY, [...] Tobacco Us (more content not included)... Normal [facility] CRP SerPl-mCncon 04-28-2021 CRP [Mass/Vol] 1.3 mg/dL High <0.9 [facility] Comment on above: Order Comment: Speci men Type: BLOOD SPECIMEN Performed By: #### 4 537-7 #### [facility] CLIA [id number] [address] [place] [address] Comprehensive metabolic 2000 panelon 04-28-2021 Albumin [Mass/Vol] 4.5 g/dL Normal 3.9-4.9 [facility] Comment on above: Order Comment: Speci men Type: BLOOD SPECIMEN Performed By: #### 4 537-7 #### [facility] CLIA [id number] [address] [place] [address] ALP [Catalytic activity/Vol] 118 U/L Normal 34-123 [facility] Comment on above: Order Comment: Speci men Type: BLOOD SPECIMEN Performed By: #### 4 537-7 #### [facility] CLIA [id number] [address] [place] [address] ALT With P-5'-P [Catalytic activity/Vol] 17 U/L Normal 7-38 [facility] Comment on above: Order Comment: Speci men Type: BLOOD SPECIMEN Performed By: #### 4 537-7 #### [facility] CLIA [id number] [address] [place] [address] Anion gap [Moles/Vol] 12 mmol/L Normal 9-18 [facility] Comment on above: Order Comment: Speci men Type: BLOOD SPECIMEN Performed By: #### 4 537-7 #### [facility] CLIA [id number] [address] [place] [address] AST With P-5'-P [Catalytic activity/Vol] 27 U/L Normal 13-35 [facility] Comment on above: Order Comment: Speci men Type: BLOOD SPECIMEN Performed By: #### 4 537-7 #### [facility] CLIA [id number] [address] [place] [address] Bilirubin [Mass/Vol] 0.5 mg/dL Normal 0.2-1.3 [facility] Comment on above: Order Comment: Speci men Type: BLOOD SPECIMEN Performed By: #### 4 537-7 #### [facility] CLIA [id number] [address] [place] [address] Calcium [Mass/Vol] 9.5 mg/dL Normal 8.5-10.2 [facility] Comment on above: Order Comment: Speci men Type: BLOOD SPECIMEN Performed By: #### 4 537-7 #### [facility] CLIA [id number] [address] [place] [address] Chloride [Moles/Vol] 101 mmol/L Normal 97-105 [facility] Comment on above: Order Comment: Speci men Type: BLOOD SPECIMEN Performed By: #### 4 537-7 #### [facility] CLIA [id number] [address] [place] [address] CO2 [Moles/Vol] 26 mmol/L Normal 22-30 [facility] Comment on above: Order Comment: Speci men Type: BLOOD SPECIMEN Performed By: #### 4 537-7 #### [facility] CLIA [id number] [address] [place] [address] Creatinine [Mass/Vol] 0.73 mg/dL Normal 0.58-0.96 [facility] Comment on above: Order Comment: Speci men Type: BLOOD SPECIMEN Performed By: #### 4 537-7 #### [facility] CLIA [id number] [address] [place] [address] GFR/1.73 sq M.predicted MDRD (S/P/Bld) [Vol rate/Area] mL/min/{1.73_m2} Normal [facility] Comment on above: Order Comment: Speci [...] 4 537-7 #### [facility] CLIA [id number] [address] [place] [address] Glucose [Mass/Vol] 90 mg/dL Normal 74-99 [facility] Comment on above: Order Comment: Speci men Type: BLOOD SPECIMEN Result Comment: The [place] Diabetes Association (ADA) provides guidance for cutoff [...] Standards of Medical Care in Diabetes 2016, [place] [employer] Association. Diabetes Care. 2016.39(Suppl 1). Performed By: #### 4 537-7 #### [facility] CLIA [id number] [address] [place] [address] Potassium [Moles/Vol] 4.2 mmol/L Normal 3.7-5.1 [facility] Comment on above: Order Comment: Speci men Type: BLOOD SPECIMEN Performed By: #### 4 537-7 #### [facility] CLIA [id number] [address] [place] [address] Protein [Mass/Vol] 7.6 g/dL Normal 6.3-8.0 [facility] Comment on above: Order Comment: Speci men Type: BLOOD SPECIMEN Performed By: #### 4 537-7 #### [facility] CLIA [id number] [address] [place] [address] Sodium [Moles/Vol] 139 mmol/L Normal 136-144 [facility] Comment on above: Order Comment: Speci men Type: BLOOD SPECIMEN Performed By: #### 4 537-7 #### [facility] CLIA [id number] [address] [place] [address] Urea nitrogen [Mass/Vol] 13 mg/dL Normal 7-21 [facility] Comment on above: Order Comment: Speci men Type: BLOOD SPECIMEN Performed By: #### 4 537-7 #### [facility] CLIA [id number] [address] [place] [address] ESR Westergren method (Bld) [Velocity]on 04-28-2021 ESR (Bld) [Velocity] 21 mm/h High 0-20 [facility] Comment on above: Order Comment: Speci men Type: BLOOD SPECIMEN Performed By: #### 4 537-7 #### [facility] CLIA [id number] [address] [place] [address] FERRITIN BLDon 04-28-2021 Ferritin [Mass/Vol] 38.1 ng/mL Normal 14.7-205.1 [facility] Comment on above: Order Comment: Speci men Type: BLOOD SPECIMEN Performed By: #### F ERR #### [facility] CLIA [id number] [address] [place] [address] HBV surface Ab IA Ql (S)on 0 04-28-2021 HBV surface Ag Ql (S) Negative Normal Negative [facility] Comment on above: Order Comment: Speci men Type: BLOOD SPECIMEN Performed By: #### 4 537-7 #### [facility] CLIA [id number] [address] [place] [address] HBV surface Ab Ser-aCncon HBV surface Ab Qn (S) <3.10 Normal <10.00 [facility] Comment on above: Order Comment: Speci men Type: BLOOD SPECIMEN Result Comment: Isis ent is considered not to have protective immunity to HBV infection. Performed By: #### V ITD #### [facility] CLIA [id number] [address] [place] [address] HCV Ab Ser Qlon 04-28-2021 HCV Ab Ql (S) Negative Normal Negative [facility] Comment on above: Order Comment: Speci men Type: BLOOD SPECIMEN Performed By: #### 4 537-7 #### [facility] CLIA [id number] [address] [place] [address] HEP B CORE AB TOTALon 2020 HBV core Ab Ql (S) Negative Normal NEGAT [facility] Comment on above: Order Comment: Speci men Type: BLOOD SPECIMEN Performed By: #### V ITD #### [facility] CLIA [id number] [address] [place] [id number] HLA-B27 PCRon 04-28-2021 HLA-B27 DNA RESULT Negative Normal [facility] Comment on above: Order Comment: Speci [...] developed and its performance characteristics determined by [employer]. The test has not been cleared or approved by the [place] FDA. However, FDA approval was not necessary since this lab is certified under CLIA for high complexity testing. Test performed by: [facility], [address], [place] [address] CLIA [id number] Performed By: #### B 27PCR #### [facility] CLIA [id number] [id number] [address] [place] IRON + TIBCon 04-28-2021 Iron [Mass/Vol] 69 ug/dL Normal 41-186 [facility] Comment on above: Order Comment: Speci men Type: BLOOD SPECIMEN Performed By: #### 4 537-7 #### [facility] CLIA [id number] [address] [place] [address] Iron binding capacity [Mass/Vol] 358 ug/dL Normal 232-386 [facility] Comment on above: Order Comment: Speci men Type: BLOOD SPECIMEN Performed By: #### 4 537-7 #### [facility] CLIA [id number] [address] [place] [address] Iron saturation [Mass fraction] 19 % Normal 15-57 [facility] Comment on above: Order Comment: Speci men Type: BLOOD SPECIMEN Performed By: #### 4 537-7 #### [facility] CLIA [id number] [address] [place] [address] RHEUMATOID FACTOR BLon 04-28 Rheumatoid factor Qn [IU]/mL Normal <16 [facility] Comment on above: Order Comment: Speci men Type: BLOOD SPECIMEN Performed By: #### V ITD #### [facility] CLIA [id number] [address] [place] [address] UA WITH CULTURE IF INDICATED on 04-28-2021 [...] during collection. Recollect if clinically indicated. Abnormal [facility] Comment on above: Order Comment: Speci men Type: BLOOD SPECIMEN Performed By: #### V ITD #### [facility] CLIA [id number] [address] [place] [address] VITAMIN D 25 HYDROXYon 04-28 25-hydroxyvitamin D3 [Mass/Vol] 25.1 ng/mL Low 30.0-100.0 [facility] Comment on above: Order Comment: Speci men Type: BLOOD SPECIMEN Result Comment: Clas sification of 25 [place] Vitamin D status: Deficiency: < 20 ng/ml. Insufficientcy: 20-30 ng/ml. Sufficiency: 30-100 ng/ml. Performed By: #### V ITD #### [facility] CLIA [id number] [address] [place] [address] XR FOOT 3V AP/LAT/OBL LTon 0 04-28-2021 [...] Bilateral calcaneal enthesopathy. Otherwise negative bilateral feet. 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 Otherwise negative bilateral feet. 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 Architectural Examiner: JB Transcribe Date/Time: Apr 28 2021 4:03P Dictated by : LELAND HANEY MD This examination was interpreted and the report reviewed and electronically signed by: LELAND HANEY MD on Apr 28 2021 4:07PM EST [id number] N Normal [facility] XR LUMBAR 2V AP/LATon 2020 XR LUMBAR [...] joints. RESULT: Lumbar spine: There are five geh-yho-oxxbuoy lumbar vertebra. No fracture or subluxations are [...] acute abnormality. Sacroiliac joints: Within normal limits. Architectural Examiner: [facility] Transcribe Date/Time: Apr 29 2021 1:32P Dictated by : LELAND HANEY MD This examination was interpreted and the report reviewed and electronically signed by: LELAND HANEY MD on Apr 29 2021 1:40PM EST [id number] N Normal [facility] XR SI JTS 2V AP PELV/FERGUSO Non [...] joints. RESULT: Lumbar spine: There are five cgq-pyi-jaqvlpm lumbar vertebra. No fracture or subluxations are [...] acute abnormality. Sacroiliac joints: Within normal limits. Architectural Examiner: [facility] Transcribe Date/Time: Apr 29 2021 1:32P Dictated by : LELAND HANEY MD This examination was interpreted and the report reviewed and electronically signed by: LELAND HANEY MD on Apr 29 2021 1:40PM EST [id number] N Normal [facility] XR Lumbar spine 3 Viewson IMPRESSION: DEGENERATIVE CHANGE DESCRIBED Architectural Examiner: [facility] Transcribe Date/Time: Nov 22 2020 11:44A Dictated by : JESUS ADAMES MD This examination was interpreted and the report reviewed and electronically signed by: JESUS ADAMES MD on Nov 22 2020 11:46AM [facility] DIVISION OF RADIOLOGY * * *Final [...] joints appear unremarkable DIVISION OF RADIOLOGY Provider, [facility] - 11/22/2020 * * *Final Report* * [...] appear unremarkable IMPRESSION IMPRESSION: DEGENERATIVE CHANGE DESCRIBED Architectural Examiner: JB Transcribe Date/Time: Nov 22 2020 11:44A Dictated by : JESUS ADAMES MD This examination was interpreted and the report reviewed and electronically signed by: JESUS ADAMES MD on Nov 22 2020 11:46AM EST [facility] Radiology Study observation (narrative) Venessa lopez [facility] XR Lumbar spine 3 ViewsOrder ed By: [facility] Provider on 11-22-2020 [facility] Vital Signs Date Time Vital Sign Value Performing Clinician Facility 01-07-2025 06:54-0400 Body height 168.[address] Trent Velazquez DO Work Phone: [facility] 01-07-2025 06:54-0400 Body mass index (BMI) [Ratio] 36.6 kg/m2 Dr. Trent Velazquez DO Work Phone: [facility] 01-07-2025 06:54-0400 Body temperature 98.2 [degF] Dr. Trent Velazquez DO Work Phone: [facility] 01-07-2025 06:54-0400 Body weight 104.[address] Trent Velazquez DO Work Phone: [facility] 01-07-2025 06:54-0400 Diastolic blood pressure 80 mm[Hg] Dr. Trent Velazquez DO Work Phone: [facility] 01-07-2025 06:54-0400 Heart rate 72 /min Dr. Trent Velazquez DO Work Phone: [facility] 01-07-2025 06:54-0400 SaO2% (BldA) [Mass fraction] 97 % Dr. Trent Velazquez DO Work Phone: [facility] 01-07-2025 06:54-0400 Systolic blood pressure 120 mm[Hg] Dr. Trent Velazquez DO Work Phone: [facility] 02-08-2024 10:42-0400 Body height 167.6 cm Benjamin Gagnon MD Work Phone: [facility] 02-08-2024 10:42-0400 Body mass index (BMI) [Ratio] 34.86 kg/m2 Benjamin Gagnon MD Work Phone: [facility] 02-08-2024 10:42-0400 Body weight 97.98 kg Benjamin Gagnon MD Work Phone: [facility] 08-24-2023 23:09-0500 Diastolic blood pressure 90 mm[Hg] [facility] 08-24-2023 23:09-0500 Heart rate 78 /min [facility] 08-24-2023 23:09-0500 Respiratory rate 16 /min [facility] 08-24-2023 23:09-0500 SaO2% (BldA) [Mass fraction] 98 % [facility] 08-24-2023 23:09-0500 Systolic blood pressure 145 mm[Hg] [facility] 08-24-2023 20:44-0500 Body height 167.64 cm [facility] 08-24-2023 20:44-0500 Body mass index (BMI) [Ratio] 36.6 kg/m2 [facility] 08-24-2023 20:44-0500 Body temperature 98.6 [degF] [facility] 08-24-2023 20:44-0500 Body weight 102.96 kg [facility] 04-28-2023 09:23-0400 Diastolic blood pressure 98 mm[Hg] [facility] 04-28-2023 09:23-0400 Heart rate 72 /min [facility] 04-28-2023 09:23-0400 Respiratory rate 14 /min [facility] 04-28-2023 09:23-0400 SaO2% (BldA) [Mass fraction] 97 % [facility] 04-28-2023 09:23-0400 Systolic blood pressure 138 mm[Hg] [facility] 04-28-2023 06:39-0400 Body height 167.64 cm [facility] 04-28-2023 06:39-0400 Body mass index (BMI) [Ratio] 35.6 kg/m2 [facility] 04-28-2023 06:39-0400 Body temperature 97.8 [degF] [facility] 04-28-2023 06:39-0400 Body weight 100.24 kg [facility] 01-27-2023 17:16-0400 Body weight 99.34 kg Dania Church APRN.CNP Work Phone: [facility] 01-27-2023 17:16-0400 Diastolic blood pressure 76 mm[Hg] Dania Church WAGON DRIVER SALESPERSON.FILLER SHREDDING MACHINE LOADER Work Phone: [facility] 01-27-2023 17:16-0400 Heart rate 84 /min Dania Church WAGON DRIVER SALESPERSON.FILLER SHREDDING MACHINE LOADER Work Phone: [facility] 01-27-2023 17:16-0400 Respiratory rate 14 /min Dania Church WAGON DRIVER SALESPERSON.FILLER SHREDDING MACHINE LOADER Work Phone: [facility] 01-27-2023 17:16-0400 Systolic blood pressure 122 mm[Hg] Dania Church WAGON DRIVER SALESPERSON.FILLER SHREDDING MACHINE LOADER Work Phone: [facility] 09-09-2022 14:30-0500 Body weight 94.8 kg Lucina Wang APRN.FILLER SHREDDING MACHINE LOADER Work Phone: [facility] 09-09-2022 14:30-0500 Diastolic blood pressure 78 mm[Hg] Lucina Wang APRN.FILLER SHREDDING MACHINE LOADER Work Phone: [facility] 09-09-2022 14:30-0500 Systolic blood pressure 126 mm[Hg] Lucina Wang APRN.FILLER SHREDDING MACHINE LOADER Work Phone: [facility] 08-25-2022 13:02-0500 Diastolic blood pressure 87 mm[Hg] Cyn Berry PA-C Work Phone: [facility] 08-25-2022 13:02-0500 Heart rate 65 /min Cyn BAI-C Work Phone: [facility] 08-25-2022 13:02-0500 Systolic blood pressure 131 mm[Hg] Cyn Berry PA-C Work Phone: [facility] 08-25-2022 12:33-0500 Body temperature 97.7 [degF] Cyn Berry PA-C Work Phone: [facility] [facility] 08-25-2022 12:33-0500 Body weight 95.71 kg Cyn BAI-C Work Phone: [facility] 08-25-2022 12:33-0500 Respiratory rate 18 /min Cyn Berry PA-C Work Phone: [facility] 08-07-2022 12:01-0500 Body temperature 97.59 [degF] Bev Praisler-Wood WAGON DRIVER SALESPERSON.FILLER SHREDDING MACHINE LOADER Work Phone: [facility] 08-07-2022 12:01-0500 Body weight 94.8 kg Bev Praisler-Wood WAGON DRIVER SALESPERSON.FILLER SHREDDING MACHINE LOADER Work Phone: [facility] 08-07-2022 12:01-0500 Diastolic blood pressure 84 mm[Hg] Bev Praisler-Wood WAGON DRIVER SALESPERSON.FILLER SHREDDING MACHINE LOADER Work Phone: [facility] 08-07-2022 12:01-0500 Heart rate 70 /min Bev Praisler-Wood WAGON DRIVER SALESPERSON.FILLER SHREDDING MACHINE LOADER Work Phone: [facility] 08-07-2022 12:01-0500 Respiratory rate 18 /min Bev Praisler-Wood WAGON DRIVER SALESPERSON.FILLER SHREDDING MACHINE LOADER Work Phone: [facility] 08-07-2022 12:01-0500 SaO2% (BldA) [Mass fraction] 99 % Bev Praisler-Wood WAGON DRIVER SALESPERSON.FILLER SHREDDING MACHINE LOADER Work Phone: [facility] 08-07-2022 12:01-0500 Systolic blood pressure 130 mm[Hg] Bev Praisler-Wood WAGON DRIVER SALESPERSON.FILLER SHREDDING MACHINE LOADER Work Phone: [facility] 08-05-2022 09:03-0500 Body weight 94.98 kg Lucina Wang WAGON DRIVER SALESPERSON.FILLER SHREDDING MACHINE LOADER Work Phone: [facility] 08-05-2022 09:03-0500 Diastolic blood pressure 82 mm[Hg] Lucina Wang WAGON DRIVER SALESPERSON.FILLER SHREDDING MACHINE LOADER Work Phone: [facility] 08-05-2022 09:03-0500 Heart rate 85 /min Lucina Wang WAGON DRIVER SALESPERSON.FILLER SHREDDING MACHINE LOADER Work Phone: [facility] 08-05-2022 09:03-0500 SaO2% (BldA) [Mass fraction] 98 % Lucina Wang WAGON DRIVER SALESPERSON.FILLER SHREDDING MACHINE LOADER Work Phone: [facility] 08-05-2022 09:03-0500 Systolic blood pressure 124 mm[Hg] Lucina Wang APRN.FILLER SHREDDING MACHINE LOADER Work Phone: [facility] 07-27-2022 14:07-0400 Body height 168 cm Cyn Berry PA-C Work Phone: [facility] 07-27-2022 14:07-0400 Body temperature 98.1 [degF] Cyn Berry PA-C Work Phone: [facility] 07-27-2022 14:07-0400 Body weight 94.8 kg Cyn Berry PA-C Work Phone: [facility] 07-27-2022 14:07-0400 Diastolic blood pressure 90 mm[Hg] Cyn Berry PA-C Work Phone: [facility] 07-27-2022 14:07-0400 Heart rate 72 /min Cyn Berry PA-C Work Phone: [facility] 07-27-2022 14:07-0400 Respiratory rate 18 /min Cyn Berry PA-C Work Phone: [facility] 07-27-2022 14:07-0400 Systolic blood pressure 130 mm[Hg] Cyn Berry PA-C Work Phone: [facility] 04-20-2022 16:00-0400 Body height 167.6 cm Lucina Wang APRN.FILLER SHREDDING MACHINE LOADER Work Phone: [facility] 04-20-2022 16:00-0400 Body weight 95.71 kg Lucina Wang APRN.FILLER SHREDDING MACHINE LOADER Work Phone: [facility] 04-20-2022 16:00-0400 Diastolic blood pressure 98 mm[Hg] Lucina Wang APRN.FILLER SHREDDING MACHINE LOADER Work Phone: [facility] 04-20-2022 16:00-0400 Systolic blood pressure 140 mm[Hg] Lucina Wang APRN.FILLER SHREDDING MACHINE LOADER Work Phone: [facility] Encounters Encounter Date Encounter Type Care Provider Facility Start: 05-09-2025 ambulatory Axel Jefferson Facility :[facility] Start: 05-02-2025 End: 05-02-[address] Trent Velazquez DO Work Phone: -Laboratory Start: 05-02-2025 End: 05-02-2025 Patient encounter procedure Axel Leonel DO -Laboratory Work Phone: Start: 05-02-2025 End: 05-02-2025 ambulatory Axel Castaneda Facility:[facility] Start: 04-15-2025 End: 04-15-2025 Patient encounter procedure Axel Leonel DO -[facility] Work Phone: Start: 04-15-2025 End: 04-15-[address] Trent Velazquez DO Work Phone: -[facility] Start: 01-07-2025 End: 01-07-2025 Patient encounter procedure Rojelio Flower [place] -[facility] Work Phone: Start: 01-07-2025 End: 01-07-2025 ambulatory Ternt Labor Facility:[facility] Start: 12-06-2024 ambulatory Trent Labor Facility:[facility] Start: 08-02-2024 End: 08-02-2024 ambulatory Trent Labor Facility:[facility] Start: 07-19-2024 ambulatory Trent Labor Facility:[facility] Start: 06-14-2024 End: 06-14-2024 ambulatory Eliz O'Honorio PT [facility] Comment on above: Calcific tendinitis of right shoulder (Primary Dx) Start: 06-01-2024 End: 06-01-2024 ambulatory Farrah Whiting LANGUAGE AND LITERATURE DIVISION CHAIR Work Phone: [facility] Comment on above: Calcific tendinitis of right shoulder (Primary Dx) Start: 05-22-2024 End: 05-22-2024 ambulatory Eliz O'Honorio PT [facility] Comment on above: Calcific tendinitis of right shoulder (Primary Dx) Start: 05-15-2024 End: 05-15-2024 ambulatory Eliz O'Honorio PT [facility] Comment on above: Calcific tendinitis of right shoulder (Primary Dx) Start: 05-08-2024 End: 05-08-2024 ambulatory Farrah Whiting LANGUAGE AND LITERATURE DIVISION CHAIR Work Phone: [facility] Comment on above: Calcific tendinitis of right shoulder (Primary Dx) Start: 05-01-2024 End: 05-01-2024 ambulatory Farrah Whiting LANGUAGE AND LITERATURE DIVISION CHAIR Work Phone: [facility] Comment on above: Calcific tendinitis of right shoulder (Primary Dx) Start: 05-01-2024 ambulatory [employer] [facility] Facility :[facility] Start: 04-10-2024 End: 04-10-2024 ambulatory Farrah Whiting LANGUAGE AND LITERATURE DIVISION CHAIR Work Phone: [facility] Comment on above: Calcific tendinitis of right shoulder (Primary Dx) Start: 04-04-2024 End: 04-05-2024 ambulatory Siobhan Patel PT, DPT [facility] Comment on above: Calcific tendinitis of right shoulder (Primary Dx) Start: 03-27-2024 End: 03-27-2024 ambulatory Eliz Sifuentes PT [facility] Comment on above: Calcific tendinitis of right shoulder (Primary Dx) Start: 03-09-2024 End: 03-09-2024 ambulatory [employer] Facility:[facility] Start: 03-09-2024 End: 03-09-2024 Patient encounter procedure Chey Plata DO Work Phone: Orthopaedics Comment on above: Calcific tendinitis of right shoulder (Primary Dx) Start: 02-28-2024 ambulatory Chey D Plata DO Work Phone: Orthopaedics Comment on above: RX Start: 02-23-2024 End: 02-23-2024 ambulatory [employer] Facility:[facility] Start: 02-23-2024 End: 02-23-2024 Subsequent hospital visit by physician Main A21 7 Work Phone: Radiology Comment on above: Calcific tendonitis [M65.20] Start: 02-22-2024 Telephone encounter Chey echeverria DO Work Phone: Orthopaedics Comment on above: Medication Question Start: 02-22-2024 End: 02-22-2024 ambulatory TRENT T LABOR Facility:[facility] Start: 02-22-2024 End: 02-22-2024 Patient encounter procedure [...] Start: 02-08-2024 End: 02-08-2024 ambulatory [facility] LABOR Facility:[facility] Start: 02-08-2024 End: 02-08-2024 Subsequent hospital visit by physician Xr [facility] Radiology Comment on above: Pain [R52] Start: 02-06-2024 Orders Only Benjamin marie MD Work Phone: [facility] Comment on above: Pain (Primary Dx) Start: 12-22-2023 End: 12-22-2023 Subsequent hospital visit by physician Xr [facility] Work Phone: Radiology Comment on above: Acute cough [R05.1] Start: 12-22-2023 End: 12-22-2023 ambulatory TRENT T LABOR Facility:[facility] Start: 08-24-2023 End: 08-24-2023 Emergency department patient visit [facility] Work Phone: Start: 07-07-2023 End: 07-07-2023 ambulatory [facility]OR Facility:[facility] Start: 05-25-2023 ambulatory Yang bravo MD Work Phone: Internal Medicine [facility] Start: 04-28-2023 End: 04-28-2023 Emergency department patient visit [facility] Work Phone: Start: 03-10-2023 Refill Yang bravo MD Work Phone: [facility] Comment on above: Refill Request Start: 02-17-2023 End: 02-17-2023 ambulatory [facility] Work Phone: Start: 02-17-2023 End: 02-17-2023 Patient encounter procedure [facility]Laboratory Start: 01-27-2023 End: 01-27-2023 Patient encounter procedure Dania Church APRN.FILLER SHREDDING MACHINE LOADER Work Phone: [facility] Comment on above: Parotitis, acute (Pr imary Dx) Start: 10-18-2022 ambulatory Eliane díaz MD Work Phone: [facility] Comment on above: RX For Monthly Massa ge Start: 09-09-2022 End: 09-09-2022 Patient encounter procedure Lucina Wang APRN.FILLER SHREDDING MACHINE LOADER Work Phone: OB/Gynecology Comment on above: IUD check up (Primar y Dx) Start: 08-25-2022 End: 08-25-2022 Patient encounter procedure Cyn Berry PA-C Work Phone: [facility] Comment on above: Mild episode of recu rrent major depressive disorder (HCC) (Primary Dx); Hypertension, essential; Encounter for immunization Start: 08-07-2022 ambulatory Cyn prince PA-C Work Phone: [facility] Comment on above: Shooting Pain In Hea d Start: 08-07-2022 End: 08-07-2022 Patient encounter procedure Bev Banks APRN.FILLER SHREDDING MACHINE LOADER Work Phone: [facility] Comment on above: Neck pain on right s nisa (Primary Dx) Start: 08-05-2022 End: 08-05-2022 Patient encounter procedure Lucina Wang APRN.FILLER SHREDDING MACHINE LOADER Work Phone: OB/Gynecology Comment on above: Encounter for IUD in sertion (Primary Dx); Menorrhagia with irregular cycle; Dysmenorrhea Start: 07-28-2022 Telephone encounter Karmen Mcfadden RNbench machine operator Comment on above: Request Outside [facility] Records Results Start: 07-27-2022 End: 07-27-2022 Patient encounter procedure Cyn Berry PA-C Work Phone: [facility] Comment on above: Well adult exam ([facility] Dx); Hypertension, essential; Dyslipidemia; Encounter for screening for diabetes mellitus; Mild episode of recurrent major depressive disorder (HCC); Inflammatory arthropathy; 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) Start: 07-27-2022 End: 07-27-2022 Patient encounter status Cyn Berry PA-C Work Phone: [facility] Start: 07-16-2022 Refill Britney Chong APRN.CNP Work Phone: [facility] Comment on above: Refill Request Start: 06-24-2022 End: 06-24-2022 Patient encounter procedure Britney Chong APRN.CNP Work Phone: [facility] Comment on above: Hypertension, essent ial (Primary Dx) Start: 05-14-2022 Telephone encounter Lucina bliss APRN.CNP Work Phone: OB/Gynecology Comment on above: Results; Orders; New Medication Start: 05-12-2022 End: 05-12-2022 Patient encounter procedure Marlene Melvin MD Work Phone: OB/Gynecology Comment on above: Excessive bleeding i n premenopausal period (Primary Dx) Start: 04-23-2022 Documentation procedure Mammog erika Coordinator [facility] Start: 04-23-2022 Letter encounter Mammography Coordinator [facility] Department Start: 04-22-2022 End: 04-22-2022 Subsequent hospital visit by physician Screen Mammo [facility] Comment on above: Encounter for screen ing mammogram for breast cancer [Z12.31] Start: 04-20-2022 End: 04-20-2022 Patient encounter procedure Lucina Wang APRN.FILLER SHREDDING MACHINE LOADER Work Phone: OB/Gynecology Comment on above: Encounter for gyneco logical examination with abnormal finding (Primary Dx); Menorrhagia with irregular cycle; Vaginal yeast infection; Encounter for screening mammogram for breast cancer Start: 04-20-2022 End: 04-20-2022 Patient encounter status Lucina Wang APRNFlorianFILLER SHREDDING MACHINE LOADER Work Phone: OB/Gynecology Start: 03-03-2022 ambulatory Yang bravo MD Work Phone: [facility] Comment on above: Possible RX Start: 06-12-2021 Patient encounter status Inna Nieves MD Work Phone: [facility] Work Phone: Start: 11-22-2020 End: 11-22-2020 Subsequent hospital visit by physician Xr [facility] Work Phone: Radiology Comment on above: [...] Trent Velazquez DO Work Phone: Start: 05-02-2025 VOC[address] IN[address] antibody measurement Dr. Trent Velazquez DO Work Phone: Comment on above: Previous reported re sult: TNP AIEdited by: JANICE on 05/07/25:0007 AMENDED REPORT 05/07/256 VOCATIONAL INSTRUCTOR Ab previously reported as: Test not performed [...] exam ches t 2 views Janneth Rachel APRN.FILLER SHREDDING MACHINE LOADER Work Phone: Start: 08-24-2023 Computed tomography of [...] test visual color cmprsn meths Lucina Wang APRN.FILLER SHREDDING MACHINE LOADER Work Phone: Start: 04-22-2022 End: 04-22-2022 Screening [...] Author Start: 02-18-2028 Lipid panel Lipid Screening [facility] Start: 02-18-2028 LIPID SCREEN LIPID SCREEN [facility] Start: 07-27-2027 LIPID SCREEN LIPID SCREEN [facility] Start: 07-07-2026 Diabetes Screening Diabetes Screening [facility] Start: 06-12-2026 LIPID SCREEN LIPID SCREEN [facility] Start: 03-13-2026 Urine microalbumin profile [facility] Start: 02-17-2026 DIABETES SCREEN DIABETES SCREEN [facility] Start: 07-27-2025 DIABETES SCREEN DIABETES SCREEN [facility] Start: 05-02-2025 Celiac disease screen [facility] Start: 05-02-2025 Gastrin [Mass/volume] in Serum or Plasma [facility] Start: 05-02-2025 Immunoglobulin measurement [facility] Start: 05-02-2025 In-vitro immunologic test [facility] Start: 05-02-2025 Serum immunofixation [facility] Start: 05-02-2025 [facility] Start: 12-21-2024 BP Controlled (<130/80) BP Controlled (<130/80) [facility] Start: 08-16-2024 HPV TESTING HPV TESTING [facility] Start: 08-16-2024 PAP TESTING PAP TESTING [facility] Start: 08-16-2024 Screening for malignant neoplasm of cervix [facility] Start: 06-22-2024 End: 06-22-2024 ambulatory 06/22/2024 2:00 PM EDT OT/PT/Speech Visit [facility] [address] [place] [address] O'Eliz Olmedo, PT Calcific tendinitis of right shoulder [M75.31] [facility] Comment on above: Calcific tendinitis of right shoulder [M 75.31] Start: 06-14-2024 End: 06-14-2024 ambulatory 06/14/2024 9:30 AM EDT OT/PT/Speech Visit [facility] [address] [place] [address] O'Eliz Olmedo, PT Calcific tendinitis of right shoulder [M75.31] [facility] Comment on above: Calcific tendinitis of right shoulder [M 75.31] Start: 06-12-2024 DIABETES SCREEN DIABETES SCREEN [facility] Start: 06-08-2024 End: 06-08-2024 ambulatory 06/08/2024 2:00 PM EDT OT/PT/Speech Visit [facility] [address] [place] [address] Farrah Whiting, LANGUAGE AND LITERATURE DIVISION CHAIR [address] [place] [address] Calcific tendinitis of right shoulder [M75.31] [facility] Comment on above: Calcific tendinitis of right shoulder [M 75.31] Start: 06-07-2024 Colonoscopy COLONOSCOPY [facility] Start: 06-07-2024 COLORECTAL CANCER SCREENING COLORECTAL CANCER SCREENING [facility] Start: 06-07-2024 Screening for malignant neoplasm of colon [facility] Start: 06-01-2024 End: 06-01-2024 ambulatory 06/01/2024 9:30 AM EDT OT/PT/Speech Visit [facility] [address] [place] [address] Farrah Whiting, CECILIA [address] [place] [address] Calcific tendinitis of right shoulder [M75.31] [facility] Comment on above: Calcific tendinitis of right shoulder [M 75.31] Start: 05-29-2024 End: 05-29-2024 ambulatory 05/29/2024 2:15 PM EDT [facility] [address] [place] [address] Chey Plata, DO [address] [place] [address] 6wks virtual visit (missed her original appoitnment on 05/01/24) Orthopaedics Comment on above: 6wks virtual visit (missed her original appoitnment on 05/01/24) Start: 05-27-2024 Covid-19 Vaccine ( season) Covid-19 Vaccine ( season) [facility] Start: 05-27-2024 Covid-19 Vaccine ( season) Covid-19 Vaccine ( season) [facility] Start: 05-27-2024 Influenza vaccination [facility] Start: 05-22-2024 End: 05-22-2024 ambulatory 05/22/2024 3:00 PM EDT OT/PT/Speech Visit [facility] [address] [place] [address] Eliz Sifuentes, PT M75.31 (ICD-10-CM) - Calcific tendinitis of right shoulder [facility] Comment on above: M75.31 (ICD-10-CM) - Calcific tendinitis of right shoulder Start: 05-15-2024 End: 05-15-2024 ambulatory 05/15/2024 3:00 PM EDT OT/PT/Speech Visit [facility] [address] [place] [address] Eliz Sifuentes, PT M75.31 (ICD-10-CM) - Calcific tendinitis of right shoulder [facility] Comment on above: M75.31 (ICD-10-CM) - Calcific tendinitis of right shoulder Start: 05-08-2024 End: 05-08-2024 ambulatory 05/08/2024 3:30 PM EDT OT/PT/Speech Visit [facility] [address] [place] [address] Farrah Whiting, LANGUAGE AND LITERATURE DIVISION CHAIR [address] [place] [address] M75.31 (ICD-10-CM) - Calcific tendinitis of right shoulder [facility] Comment on above: M75.31 (ICD-10-CM) - Calcific tendinitis of right shoulder Start: 05-06-2024 Dental X-Ray: FMX/[facility] Dental X-Ray: FMX/Clancy [facility] Start: 05-01-2024 End: 05-01-2024 ambulatory 05/01/2024 3:30 PM EDT OT/PT/Speech Visit [facility] [address] [place] [address] Farrah Whiting, LANGUAGE AND LITERATURE DIVISION CHAIR [address] [place] [address] M75.31 (ICD-10-CM) - Calcific tendinitis of right shoulder [facility] Comment on above: M75.31 (ICD-10-CM) - Calcific tendinitis of right shoulder Start: 05-01-2024 End: 05-01-2024 ambulatory 05/01/2024 7:30 AM EDT [facility] [address] [place] [address] Chey Plata, DO [address] [place] [address] 6wks virtual visit Orthopaedics Comment on above: 6wks virtual visit Start: 04-24-2024 End: 04-24-2024 ambulatory 04/24/2024 2:15 PM EDT OT/PT/Speech Visit [facility] [address] [place] [address] Eliz Sifuentes, PT M75.31 (ICD-10-CM) - Calcific tendinitis of right shoulder [facility] Comment on above: M75.31 (ICD-10-CM) - Calcific tendinitis of right shoulder Start: 04-17-2024 End: 04-17-2024 ambulatory 04/17/2024 1:30 PM EDT OT/PT/Speech Visit [facility] [address] [place] [address] Eliz Sifuentes, PT M75.31 (ICD-10-CM) - Calcific tendinitis of right shoulder [facility] Comment on above: M75.31 (ICD-10-CM) - Calcific tendinitis of right shoulder Start: 04-10-2024 End: 04-10-2024 ambulatory 04/10/2024 2:45 PM EDT OT/PT/Speech Visit [facility] [address] [place] [address] Farrah Whiting, LANGUAGE AND LITERATURE DIVISION CHAIR [address] [place] [address] M75.31 (ICD-10-CM) - Calcific tendinitis of right shoulder [facility] Comment on above: M75.31 (ICD-10-CM) - Calcific tendinitis of right shoulder Start: 04-04-2024 End: 04-04-2024 ambulatory 04/04/2024 3:45 PM EDT OT/PT/Speech Visit [facility] [address] [place] [address] Siobhan Patel, PT, DPT M75.31 (ICD-10-CM) - Calcific tendinitis of right shoulder [facility] Comment on above: M75.31 (ICD-10-CM) - Calcific tendinitis of right shoulder Start: 03-27-2024 End: 03-27-2024 ambulatory 03/27/2024 3:45 PM EDT OT/PT/Speech Visit [facility] [address] [place] [address] Eliz Sifuentes, PT Right shoulder =- [employer] [facility] Comment on above: Right shoulder =- [employer] Start: 03-09-2024 End: 03-09-2024 Patient encounter procedure 03/09/2024 9:15 AM EDT Office Visit Orthopaedics [address] [place] [address] Chey Plata D, DO [address] [place] [address] TENJET ONLY - RIGHT SHOULDER Orthopaedics Comment on above: TENJET ONLY - RIGHT SHOULDER Start: 02-23-2024 End: 02-23-2024 Patient encounter procedure 02/23/2024 2:25 PM EDT Appointment Radiology [address] [address] US SHOULDER RT; EVAL LOCATION+SIZE OF CALCIFIC DEPOSITS NOTED ON XR Radiology Comment on above: US SHOULDER RT; EVAL LOCATION+SIZE OF CA LCIFIC DEPOSITS NOTED ON XR Start: 02-22-2024 End: 02-22-2024 Patient encounter procedure 02/22/2024 10:45 AM EDT Office Visit Orthopaedics [address] [place] [address] Chey Plata, [address] [place] [address] discuss treatment options, right shoulder. Referred by Dr. Mekhi Gagnon Orthopaedics Comment on above: discuss treatment options, right shoulde r. Referred by Dr. Mekhi Gagnon Start: 02-13-2024 End: 02-13-2024 Patient encounter procedure 02/13/2024 9:10 AM EDT Appointment Mammogram [address] [place] [address] Mammogram Start: 02-08-2024 End: 02-08-2024 Patient encounter procedure Radiology Comment on above: rt shoulder XR rt shoulder pain (ca n hardly move it) Start: 01-28-2024 ANNUAL PCP TEAM CHRONIC DISEASE VISIT ANNUAL PCP TEAM CHRONIC DISEASE VISIT [facility] Start: 01-28-2024 BP CONTROLLED (<130/80) BP CONTROLLED (<130/80) [facility] Start: 09-26-2023 Behavioral Health Screening Behavioral Health Screening [facility] Start: 09-09-2023 BP CONTROLLED (<130/80) BP CONTROLLED (<130/80) [facility] Start: 08-25-2023 ANNUAL PCP TEAM CHRONIC DISEASE VISIT ANNUAL PCP TEAM CHRONIC DISEASE VISIT [facility] Start: 08-24-2023 [facility] Start: 07-27-2023 ANNUAL PCP TEAM CHRONIC DISEASE VISIT ANNUAL PCP TEAM CHRONIC DISEASE VISIT [facility] Start: 05-27-2023 Covid-19 Vaccine ( season) Covid-19 Vaccine ( season) [facility] Start: 05-27-2023 Influenza vaccination INFLUENZA (#1) [facility] Start: 04-22-2023 Mammography MAMMOGRAM [facility] Start: 04-22-2023 Screening for malignant neoplasm of breast Mammogram Screening [facility] Start: 09-26-2022 DEPRESSION ASSESSMENT DEPRESSION ASSESSMENT [facility] Start: 07-27-2022 End: 09-26-2022 Comprehensive metabolic 2000 panel - Serum or Plasma [facility] Work Phone: Comment on above: Expected: 07/27/2022, Expires: 3 Start: 07-27-2022 End: 09-26-2022 Hemoglobin A1c in Blood [facility] Work Phone: Comment on above: Expected: 07/27/2022, Expires: 3 Start: 07-27-2022 End: 09-26-2022 LIPID PANEL, NONFASTING [facility] Work Phone: Comment on above: Expected: 07/27/2022, Expires: 3 Start: 07-27-2022 End: 09-26-2022 Urinalysis complete panel - Urine [facility] Work Phone: Comment on above: Expected: 07/27/2022, Expires: 3 Start: 06-10-2022 Adult depression screening assessment DEPRESSION SCREENING [facility] Start: 05-27-2022 Influenza vaccination INFLUENZA (#1) [facility] Start: 04-20-2022 End: 06-20-2022 Thyrotropin [Units/volume] in Serum or Plasma [facility] Work Phone: Comment on above: Expected: 04/20/2022, Expires: 2 Start: 10-15-2021 Mammography MAMMOGRAM [facility] Start: 09-26-2021 DEPRESSION ASSESSMENT DEPRESSION ASSESSMENT [facility] Start: 04-04-2021 COVID-19 VACCINE (3 - Booster for Moderna series) COVID-19 VACCINE (3 - Booster for Moderna series) [facility] Start: 12-31-2020 COVID-19 VACCINE (3 - Booster for Moderna series) COVID-19 VACCINE (3 - Booster for Moderna series) [facility] Start: 2020 COLOGUARD (FIT-DNA) COLOGUARD (FIT-DNA) [facility] Start: [address] COLONOGRAPHY [facility] Start: 2020 FECAL OCCULT BLOOD FECAL OCCULT BLOOD [facility] Start: 2020 Screening for malignant neoplasm of colon [facility] Start: 2020 SIGMOIDOSCOPY SIGMOIDOSCOPY [facility] Start: 11-16-2019 HEPATITIS B (2 of 3 - 3-dose series) [facility] Start: 11-16-2019 Hepatitis B Vaccine (2 of 3 - 19+ 3-dose series) Hepatitis B Vaccine (2 of 3 - 19+ 3-dose series) [facility] Start: 1993 Anxiety Screening Anxiety Screening [facility] Start: 1993 BP CONTROLLED (<130/80) BP CONTROLLED (<130/80) [facility] Start: 1993 Depression Screening Depression Screening [facility] Start: 1975 Dental Oral Exam Dental Oral Exam [facility] Start: 1975 Dental Perio Probing Dental Perio Probing [facility] Start: 1975 Dental Prophylaxis Dental Prophylaxis [facility] Start: 1975 Dental X-Ray: Bitewings Dental X-Ray: Bitewings [facility] Start: 1975 Periodontal Maintenance Periodontal Maintenance [facility] Albumin [Moles/volum e] in Serum or Plasma [facility] Albumin/Globulin ratio [facility] C reactive protein [Mass/volume] in Serum or Plasma [facility] CBC W Auto Different ial panel - Blood [facility] Celiac disease screen [facility] Chitobioside IgA Ab [Units/volume] in Serum or Plasma by Immunoassay [facility] Clostridioides diffi cile DNA [Presence] in Unspecified specimen by NYDIA with probe detection [facility] Comprehensive metabo lic 2000 panel - Serum or Plasma [facility] Elastase.pancreatic [Presence] in Stool [facility] Electrophoresis: [id number] [facility] Electrophoresis: venkat ma globulin [facility] Endometrial bx w/wo endocervix bx w/o dilat spx ENDOMETRIAL BIOPSY Procedures Routine Excessive bleeding in premenopausal period Ordered: 05/14/2022 [facility] Work Phone: Comment on above: Ordered: 05/14/2022 Erythrocyte sediment ation rate [facility] Fat [Presence] in Stool [facility] Ferritin [Mass/volum e] in Serum or Plasma [facility] Gastrin [Mass/volume ] in Serum or Plasma [facility] Globulin measurement [facility] IgA [Mass/volume] in Serum or Plasma [facility] IgE [Units/volume] i n Serum or Plasma [facility] IgG [Mass/volume] in Serum or Plasma [facility] IgM [Mass/volume] in Serum or Plasma [facility] Immunoglobulin measurement [facility] In-vitro immunologic test [facility] Insertion intrauteri ne device iud INSERT INTRAUTERINE DEVICE Procedures Routine Excessive bleeding in premenopausal period Ordered: 05/14/2022 [facility] Work Phone: Comment on above: Ordered: 05/14/2022 Laboratory data interpretation [facility] Lactate dehydrogenas e measurement [facility] Lactoferrin [Presenc e] in Stool by Immunoassay [facility] Laminaribioside IgG Ab [Units/volume] in Serum or Plasma by Immunoassay [facility] Magnesium measurement [facility] End: 06-23-2024 [facility] Radiology Routine Encounter for screening mammogram for breast cancer 1 Occurrences starting 05/25/2023 until 06/23/2024 [facility] Work Phone: Comment on above: 1 Occurrences starting 05/25/2023 until 06/23/2024 Mannobioside IgG Ab [Units/volume] in Serum or Plasma by Immunoassay [facility] Measurement of funga l antibody [facility] Mycobacterium tuberc ulosis tuberculin stimulated gamma interferon [Presence] in Blood [facility] Neutrophil cytoplasm ic Ab.classic [Units/volume] in Serum [facility] Neutrophil cytoplasm ic Ab.perinuclear.atypical [Titer] in Serum by Immunofluorescence [facility] Nucleic acid assay [facility] P-ANCA measurement [facility] Patient Education [facility] Work Phone: Patient referral [facility] Work Phone: PELVIC US WHI PELVIC US I An c Imaging Routine Menorrhagia with irregular cycle Ordered: 04/20/2022 [facility] Work Phone: Comment on above: Ordered: 04/20/2022 Protein electrophore sis panel - Serum or Plasma [facility] Protein measurement [facility] End: 05-20-2023 Screening mammography bi 2-view breast inc cad [facility] SCRE[facility] Radiology Routine Encounter for screening mammogram for breast cancer 1 Occurrences starting 04/20/2022 until 05/20/2023 [facility] Work Phone: Comment on above: 1 Occurrences starting 04/20/2022 until 05/20/2023 Screening mammograph y bi 2-view breast inc cad [facility] SCREENING Radiology Routine Encounter for screening mammogram for breast cancer 04/22/2022 3:06 PM EDT [facility] Work Phone: Serum immunofixation [facility] Serum inorganic phos phate measurement [facility] SURGICAL PATHOLOGY SURGICAL PATH OLOGY Lab Routine Encounter for IUD insertion Ordered: 08/05/2022 [facility] Work Phone: Comment on above: Ordered: 08/05/2022 T4 free measurement [facility] Thyroid stimulating hormone measurement [facility] Tissue transglutamin ase IgA Ab [Units/volume] in Serum [facility] Triiodothyronine, fr ee measurement [facility] End: 03-09-2025 US Shoulder - right US SHOULDER RIGHT Radiology SHLOMO Calcific tendonitis 1 Occurrences starting 02/08/2024 until 03/09/2025 [facility] Work Phone: Comment on above: 1 Occurrences starting 02/08/2024 until 03/09/2025 Vitamin B12 measurement [facility] End: 03-07-2025 XR Shoulder - right 3 Views XR SHOULDER GENERAL 3V OR MORE AP/TRUE AP/OTHER RIGHT Radiology Routine Pain 1 Occurrences starting 02/06/2024 until 03/07/2025 [facility] Work Phone: Comment on above: 1 Occurrences starting 02/06/2024 until 03/07/2025 XR Shoulder - right 3 Views XR S HOULDER GENERAL 3V OR MORE AP/TRUE AP/OTHER RIGHT Radiology Routine Pain 02/08/2024 10:03 AM EDT [facility] Work Phone: [facility] Immunizations Immunization Date Immunization Notes Care Provider Lorie vergara 09-05-2024 influenza, seasonal, injectable, preservative free Dr. Trent Velazquez DO Work Phone: [facility] 08-25-2022 COVID-19 booster vaccine, age 12+ yr, bivalent (PFIZER-BIONTECH) Cyn Berry PA-C Work Phone: [facility] 08-25-2022 influenza, injectabl e, quadrivalent, contains preservative Cyn Berry PA-C Work Phone: [facility] 08-25-2022 influenza virus vaccine, unspecified formulation Benjamin Gagnon MD Work Phone: [facility] 06-12-2021 influenza, injectabl e, quadrivalent, contains preservative Yang Nieves MD Work Phone: [facility] 11-05-2020 Covid (Moderna) Dr. Trent isaacs DO Work Phone: [facility] 10-08-2020 Covid (Moderna) Dr. Trent isaacs DO Work Phone: [facility] 11-02-2019 influenza, injectabl e, quadrivalent, contains preservative Yang Nieves MD Work Phone: [facility] 10-19-2019 hepatitis A vaccine, adult dosage Yang Nieves MD Work Phone: [facility] Work Phone: 10-19-2019 hepatitis B vaccine, adult dosage Yang Nieves MD Work Phone: [facility] Work Phone: 10-19-2019 measles, mumps and rubella virus vaccine Yang Nieves MD Work Phone: [facility] Work Phone: 10-19-2019 hepatitis B vaccine, unspecified formulation Marlene Melvin MD Work Phone: [facility] 07-29-2018 influenza, injectabl e, quadrivalent, contains preservative Yang Nieves MD Work Phone: [facility] Work Phone: 07-14-2016 influenza, injectabl e, quadrivalent, contains preservative Yang Nieves MD Work Phone: [facility] Work Phone: 03-13-2016 tetanus toxoid, redu ekaterina diphtheria toxoid, and acellular pertussis vaccine, adsorbed Yang Nieves MD Work Phone: [facility] Work Phone: 06-18-2015 influenza, injectabl e, quadrivalent, preservative free [facility] 06-18-2015 influenza, seasonal, injectable [facility] 05-07-1991 diphtheria and tetan us toxoids, adsorbed for pediatric use Yang Nieves MD Work Phone: [facility] 11-27-1979 tuberculin skin test ; purified protein derivative solution, intradermal Eliz O'Honorio PT [facility] 11-20-1979 diphtheria, tetanus toxoids and acellular pertussis vaccine Yang Nieves MD Work Phone: [facility] 11-20-1979 trivalent poliovirus vaccine, live, oral Yang Nieves MD Work Phone: [facility] 06-19-1976 measles, mumps and rubella virus vaccine Yang Nieves MD Work Phone: [facility] 1975 diphtheria, tetanus toxoids and acellular pertussis vaccine Yang Nieves MD Work Phone: [facility] 1975 trivalent poliovirus vaccine, live, oral Yang Nieves MD Work Phone: [facility] 1975 diphtheria, tetanus toxoids and acellular pertussis vaccine Yang Nieves MD Work Phone: [facility] 1975 trivalent poliovirus vaccine, live, oral Yang Nieves MD Work Phone: [facility] 1975 diphtheria, tetanus toxoids and acellular pertussis vaccine Yang Nieves MD Work Phone: [facility] 1975 trivalent poliovirus vaccine, live, oral Yang Nieves MD Work Phone: [facility] Payers Date Payer Category Payer Unknown [id number] 2024 Self-pay 2023 Unknown [id number] 2021 Unknown MMO MMO [employer] [id number] 2021-Present [phone] [address] [place] [address] PPO [id number] 2015 Unknown [id number] 2015 Unknown [id number] Unknown [id number] Unknown [id number] Unknown [id number] Unknown [id number] Unknown [id number] Unknown [id number] Unknown [id number] Social History Date Type Detail Facility Start: 11-09-2017 End: 08-24-2023 Tobacco smoking status NHIS Never smoked tobacco [facility] Start: 09-01-2020 End: 09-07-2021 Alcohol intake Current drinker of alcohol (finding) [facility] Start: 08-31-2020 End: 09-07-2021 Alcohol intake [facility] Start: 06-10-2021 History SDOH Alcohol Frequency 4 [facility] Start: 06-10-2021 History SDOH Alcohol Std Drinks 1 [facility] Start: 06-10-2021 History SDOH Social Connections Get Together 5 [facility] Start: 06-10-2021 History SDOH Social Connections Living 3 [facility] Start: 06-10-2021 History SDOH Stress 2 [facility] Start: 06-10-2021 Education 12 [facility] Start: 1975 Sex Assigned At Not on file [facility] Start: 11-09-2017 End: 06-24-2022 Tobacco use and exposure Smokeless tobacco non-user [facility] Work Phone: Start: 10-23-2020 End: 08-25-2022 Exposure to SARS-CoV-2 (event) Not sure [facility] Start: 07-27-2022 Alcohol Comment occassionally [facility] Start: 07-17-2022 End: 07-27-2022 Exposure to SARS-CoV-2 (event) Yes [facility] Start: 04-14-2017 End: 08-24-2023 Tobacco smoking status SDIS Unknown if ever smoked [facility] Start: 1975 Sex Assigned At Female [facility] Start: 08-31-2020 End: 06-10-2021 Social connection and isolation panel [facility] Active Member of [facility] bs or Organizations Not on file [facility] Are you now , , , , never or living with a partner? [facility] How often to you hav e a drink containing alcohol? 2-3 time sa week [facility] How many standard drinks containing alcohol do you have on a typical day? 1 or 2 [facility] How often do you hav e 6 or more drinks on 1 occasion? Never [facility] Do you feel stress - tense, restless, nervous, or anxious, or unable to sleep at night because your mind is troubled all the time - these days [OSQ] Only a little [facility] (I/We) worried wheth er (my/our) food would run out before (I/we) got money to buy more. Never true [facility] In the past 12 month s, was there a time when you were not able to pay the mortgage or rent on time? No [facility] How often to you hav e a drink containing alcohol? 2-4 times a month [facility] NEGATED: Highlighted row [facility] Goals Date Patient Goal Desired Activity /State Personal health goal Mental Status Date Assessment Result Facility 04-28-2023 Cognitive function Voice/Name [facility] Work Phone: Clinical Notes 11-22-2020 to 01-07-2025 Note Date & Type Note Facility 01-07-2025 Evaluation note Diagnosis Onset Date Resolution Allergic dermatitis acute January 07, 2025 6:54am History of palpitations acute A pril 2024 6:54am Bloating acute April 15 8:32am Diarrhea acute April 15 8:32am [facility] Work Phone: [phone]) 528-559109-19-2024 History of Present illness Narrative* Eliz Sifuentes, PT - 06/14/2024 10:01 AM EDT Program_ID:[id number] Access Code: [email or web address] URL: [email or web address] Date: 06-14-2024 Prepared By: Eliz Sifuentes Program [...] 06/14/2024 and treatment included: Therapeutic exercise and Self-chcf management. Goals for Episode of Care: created on 03/27/24 through 05/22/24 Goals updated on 05/15/2024 through 06/26/24 Goals updated on 06/14/2024. [place] in home exercise program. -- MET Patient [...] : 1006 ANDREIA Rodriguez documented in this encounterOur [facility]24 NoteHNO ID: [id number] Author: ELIZ SIFUENTES PT Service: ? Author [...] 06/14/2024 and treatment included: Therapeutic exercise and Self-chcf management. Goals for Episode of Care: created on 03/27/24 through 05/22/24 Goals updated on 05/15/2024 through 06/26/24 Goals updated on 06/14/2024. [place] in home exercise program. -- MET Patient [...] 926 Session Stop Time : 1006 [facility] NoteHNO ID: [id number] Author: ELIZ SIFUENTES PT Service: ? Author [...] Session Stop Time : 1009 Farrah Whiting, LANGUAGE AND LITERATURE DIVISION CHAIR Eliz Sifuentes, [facility]09-06-2024 History of Present illness Narrative* Eliz Sifuentes, [...] 1009 CECILIA Dumas PT documented in this encounterOur [facility]08-27-2024 NoteHNO ID: [id number] Author: ELIZ SIFUENTES PT Service: ? Author [...] Session Stop Time : 1534 Eliz Sifuentes, [facility]08-27-2024 History of Present illness Narrative* Eliz Sifuentes, [...] 1534 Eliz Sifuentes, PT documented in this encounterOur [facility] History of Present illness Narrative* Eliz Sifuentes, PT - 05/15/2024 3:24 PM EDT Program_ID:[id number] Access Code: [email or web address] URL: [email or web address] Date: 05-15-2024 Prepared By: Eliz Sifuentes Program [...] 05/22/24 Goals updated on 05/15/2024 through 06/26/24 [place] in home exercise program. -- MET Patient [...] Patient to be seen for Gait Training (88362), Self-chcf management (33821), Therapeutic activities (68060), Manual therapy (15272), Therapeutic exercise (30454), Neuromuscular re-education (61761) PLAN FOR NEXT VISIT: assess symptom response with scapular stabilization using theraband resistance SUBJECTIVE: Pt. reports improvement with using a computer mouse. 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 Pain is in the anterior R shoulder. [...] pink band 3: *Access Code: [email or web address] URL: [email or web address] Date: 05/15/2024 Prepared by: Eliz Schmid [...] 1536 Eliz Sifuentes PT documented in this encounterOur [facility]-2024 NoteHNO ID: [id number] Author: ELIZ SIFUENTES PT Service: ? Author [...] 05/22/24 Goals updated on 05/15/2024 through 06/26/24 [place] in home exercise program. -- MET Patient [...] Patient to be seen for Gait Training (01759), Self-chcf management (56389), Therapeutic activities (52418), Manual therapy (11669), Therapeutic exercise (80891), Neuromuscular re-education (70214) PLAN FOR NEXT VISIT: assess symptom response with scapular stabilization using theraband resistance SUBJECTIVE: Pt. reports improvement with using a computer mouse. 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 Pain is in the anterior R shoulder. [...] pink band 3: *Access Code: [email or web address] URL: [email or web address] Date: 05/15/2024 Prepared by: Eliz Sifuentes Exercises [...] weekly - 4 set (more content not included)...[facility] 05-08-2024 NoteHNO ID: [id number] Author: ELIZ SIFUENTES PT Service: ? Author [...] shoulder is sore today. 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 Pain: Pain [...] Session Stop Time : 161 CECILIA Dumas, [facility]08-13-2024 History of Present illness Narrative* Eliz Sifuentes, [...] shoulder is sore today. 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 Pain: Pain [...] 1611 CECILIA Dumas PT documented in this encounterOur [facility] History of Present illness Narrative* Farrah Whiting PTA - 05/01/2024 4:00 PM EDT Program_ID:[id number] Access Code: [email or web address] URL: [email or web address] Date: 05-01-2024 Prepared By: Eliz Sifuentes Program [...] 1601 CECILIA Dumas PT documented in this encounterOur [facility]08-06-2024 NoteHNO ID: [id number] Author: STERLING BOYD PT Service: ? Author [...] Time : 1601 Farrah Whiting, CECILIA Boyd, [facility]07-16-2024 NoteHNO ID: [id number] Author: ELIZ SIFUENTES, PT Service: ? Author [...] Session Stop Time : 1516 CECILIA Dumas, [facility]07-16-2024 History of Present illness Narrative* Eliz Sifuentes, [...] 1516 CECILIA Dumas, PT documented in this encounterOur [facility] History of Present illness Narrative* Siobhan Patel PT, DPT - 04/04/2024 4:23 PM EDT Program_ID:[id number] Access Code: [email or web address] URL: [email or web address] Date: 04-04-2024 Prepared By: Eliz Sifuentes Program [...] Siobhan Patel PT, DPT documented in this encounterOur [facility] Of [facility]07-10-2024 NoteHNO ID: [id number] Author: SIOBHAN PATEL PT, DPT Service: ? [...] Stop Time : 1626 Siobhan Patel PT, [facility]07-02-2024 History of Present illness Narrative* Eliz Sifuentes, PT - 03/27/2024 4:05 PM EDT Program_ID:[id number] Access Code: [email or web address] URL: [email or web address] Date: 03-27-2024 Prepared By: Eliz Sifuentes Program [...] of Care: created on 03/27/24 through 05/22/24 [place] in home exercise program. Patient will decrease [...] Planned: 8 Planned Treatment Interventions: Gait Training (48457), Self-chcf management (44132), Therapeutic activities (91825), Manual therapy (24693), Therapeutic exercise (48137), Neuromuscular re-education (43188) PLAN FOR NEXT VISIT: isometrics Patient demonstrates [...] been taking tylenol sincesurgery. Works at a [employer] all day for work. Pt. 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 Patient education as noted. Self-Fdc Management: 1: advised progressing AAROM only within [...] 1625 Eliz Sifuentes PT documented in this encounterOur [facility] Of [facility]07-02-2024 NoteHNO ID: [id number] Author: ELIZ SIFUENTES PT Service: ? Author [...] of Care: created on 03/27/24 through 05/22/24 [place] in home exercise program. 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 [facility]06-14-2024 NoteHNO ID: [id number] Author: CHEY PLATA, DO Service: ? Author Type: Physician Type: Progress Notes Filed: 03/09/2024 13:14 Note Text: Minimally Invasive Tenotomy Informed Consent Consent Obtained: Verbal [place] Protocol A moment to CARE was completed. [...] subacromial bursa Informed Consent Consent Obtained: Verbal [place] Protocol A moment to CARE was completed. [...] Care Visit completed when applicable Chey Plata [facility]06-14-2024 History of Present illness Narrative* Chey Plata, DO - 03/09/2024 1:13 PM EDTAssociated Order(s): Minimally Invasive Tenotomy; Large Joint Arthro/Inj: R subacromial bursa Post-Procedure Diagnose(s): Calcific tendinitis of right shoulder Minimally Invasive Tenotomy Informed Consent Consent Obtained: Verbal [place] Protocol A moment to CARE was completed. [...] subacromial bursa Informed Consent Consent Obtained: Verbal [place] Protocol A moment to CARE was completed. [...] applicable Chey Plata DO documented in this encounterOur [facility] Instructions* Patient Instructions* Chey Plata DO - 03/09/2024 9:24 AM EDT Follow-up with me in 6 weeks, can be virtual Follow-up with PT in 2-3 weeks documented in this encounterOur [facility] Telephone encounter Note * Telephone Encounter - Chey Plata DO - 02/22/2024 4:46 PM EDT This was discussed, and I did not send the medication. I have now sent the Rx to the pharmacy. Chey Plata DO [facility]05-29-[facility]24 Miscellaneous Notes* Telephone Encounter - Chey Plata [...] calling: self Call patient at: at home [phone] (home) [phone] (cell) Was an appointment scheduled: No Closing statement: Symptom Call: Thank you for calling [facility], your call is very important. A nurse will call in approximately 2-4 hours during business hours. If this is an emergency, please contact 911Florian العلي documented in this encounterOur Lady Of [facility] [place] Telephone encounter Note * Telephone Encounter - [...] calling: self Call patient at: at home [phone] (home) [phone] (cell) Was an appointment scheduled: No Closing statement: Symptom Call: Thank you for calling [facility], your call is very important. A nurse will call in approximately 2-4 hours during business hours. If this is an emergency, please contact 911. Kaila العلي [facility]05-29-2024 NoteHNO ID: [id number] Author: CHEY PLATA DO Service: ? Author [...] results and radiologist's interpretation, available in the [facility] health record. Images were reviewed with [...] The patient will be enrolled in shoulder child care giver to assist in preparation for procedure. Verbal health education was given to patient. Patient verbalizes understanding and agrees with the treatment plan as detailed above. Chey Plata [facility]05-29-2024 History of Present illness Narrative* Chey Plata [...] results and radiologist's interpretation, available in the [facility] health record. Images were reviewed with [...] The patient will be enrolled in shoulder child care giver to assist in preparation for procedure. Verbal health education was given to patient. Patient verbalizes understanding and agrees with the treatment plan as detailed above. Chey Plata DO documented in this encounterOur Lady Of [facility] Telephone encounter Note * Telephone Encounter - hSala Hoffman - 02/08/2024 1:09 PM EDT Patient has been scheduled for their MSK US exam on 02/23/24 : 2:25 PM at [facility]. [facility]05-15-[facility]24 Miscellaneous Notes* Telephone Encounter - Shala Hoffman [...] locations. Slot held: N/A documented in this encounterOur Lady Of [facility] [place]05-[facility]24 Telephone encounter Note * Telephone Encounter - Eliel Natarajan - 02/08/2024 12:59 PM EDT Patient returned phone call and appointment has been scheduled with Dr. Plata on 02/22/24. [facility]05-15-[facility]24 Miscellaneous Notes* Telephone Encounter - Eliel Natarajan [...] my direct phone number. documented in this encounterOur Lady Of [facility] [place]-2024 Telephone encounter Note * Telephone Encounter - [...] of our three locations. Slot held: N/A [facility]-15-[facility]24 Telephone encounter Note* Telephone Encounter - Eliel Natarajan - 02/08/2024 12:00 PM EDT Attempted to contact patient to schedule an appointment with Dr. Plata or Dr. Fregoso to discuss treatment options for right shoulder. Left voicemail with my direct phone number. [facility]05-15-[facility]24 NoteHNO ID: [id number] Author: BENJAMIN GAGNON MD Service: ? Author [...] to go to the emergency department in [place] Current Outpatient Medications Medication Sig oxyCODONE-acetaminophen (PERCOCET) [...] patient to either Dr. (more content not included)...[facility]05-15-2024 History of Present illness Narrative* Benjamin Gagnon [...] to go to the emergency department in [place] Current Outpatient Medications Medication Sig oxyCODONE-acetaminophen (PERCOCET) [...] Dr. Fregoso or Dr. Plata in the [place] area. At the conclusion of the office visit, the patient was asked if they had any questions regarding the diagnosis or care. Also, ample time was provided for the patient to ask any questions regarding the diagnosis therefore plan of care. All the patient's questions if asked were answered to their satisfaction. This note was partially generated using DealCircle recognition system and as such may contain grammatical or word errors Benjamin Gagnon MD documented in this encounterOur Lady Of [facility]05-[facility] History of Present illness Narrative* Lizz Dorsey [...] PATIENT PRESENTS WITH AN IMPLANTABLE OR ATTACHED SENIOR COMMERCIAL LOAN OFFICER: No RADIOLOGY DEPARTMENT: General X-ray: Exam(s) Completed: Upper Extremity X- Ray(s): Shoulder, AP / TRUE AP / AXILLARY right PERIPHERAL IV DATA: Not applicable SIGNED BY: GEORGINA Burgess) February 08, 2024 10:11 AM documented in this encounterOur Lady Of [facility]05-15-2024 NoteHNO ID: [id number] Author: LIZZ DORSEY RT(R) Service: ? Author Type: Eligibility Counselor Type: Progress Notes Filed: 02/08/2024 10:12 Note [...] PATIENT PRESENTS WITH AN IMPLANTABLE OR ATTACHED SENIOR COMMERCIAL LOAN OFFICER: No RADIOLOGY DEPARTMENT: General X-ray: Exam(s) Completed: Upper Extremity X-Ray(s): Shoulder, AP / TRUE AP / AXILLARY right PERIPHERAL IV DATA: Not applicable SIGNED BY: RT Jenifer(R) February 08, 2024 10:11 [facility]03-28-2024 History of Present illness Narrative* [...] PATIENT PRESENTS WITH AN IMPLANTABLE OR ATTACHED SENIOR COMMERCIAL LOAN OFFICER: No RADIOLOGY DEPARTMENT: General X-ray: Exam(s) Completed: Chest X-Ray PERIPHERAL IV DATA: Not applicable SIGNED BY: RT Law(R) December 22, 2023 9:20 AM documented in this encounterOur Lady Of [facility]03-28-2024 NoteHNO ID: [id number] Author: GHULAM SMITH RT(Jacinto) Service: Radiology Author [...] PATIENT PRESENTS WITH AN IMPLANTABLE OR ATTACHED SENIOR COMMERCIAL LOAN OFFICER: No RADIOLOGY DEPARTMENT: General X-ray: Exam(s) Completed: Chest X-Ray PERIPHERAL IV DATA: Not applicable SIGNED BY: RT Law(R) December 22, 2023 9:20 [facility]03-28-2024 NoteHNO ID: [id number] Author: JANNETH RACHEL APRN.FILLER SHREDDING MACHINE LOADER Service: ? Author Type: Nurse Practitioner Type: [...] was reviewed and agreed upon. Janneth Rachel APRN.[facility]11-29-2023 Discharge summary Author Griselda Stewart [facility] August 24, 2023 11:05pm Note Date/Time August 24, 2023 8:58pm [facility] Medical Records Department [address] [place] [address] Emergency Department Summary 08/24/23 MR#: [id number] Acct: [id number] Name: JOHNSONMENDOZA Izaiah Rep #:[id number] : 1975 48 From: Griselda Stewart DO [...] a 6 or 7 out of 10. [facility] Medical History (Updated 08/24/23 @ 23:02 by [...] as well as Bentyl and a few [place] for severe pain. Advised to returnif worsening [...] % (Auto) 69.9 Lymph % (Auto) 20.7 [place] % (Auto) 7.0 Eos % (Auto) 1.6 [...] Sl. Cloudy Urine pH 5.0 Ur Specific Francisco 1.025 Urine Protein Negative Urine Glucose (UA) [...] your Primary Care Provider. Call [facility] ([phone]) or report to the closest Emergency Room. Call 911 if necessary. 08/24/235 <Electronically signed by Griselda Stewart DO> Cosigner Signature (if applicable): CC: Dr. Trent Velazquez DO ~ Signed [facility] Work Phone: 1(265) 124-630008-03-2023 Discharge summary Author Bo Young [facility] April 28, 2023 9:16am Note Date/Time April 28, 2023 7:1 2am [facility] Medical Records Department [address] [place] [address] Emergency Department Summary 04/28/23 MR#: [id number] Acct: [id number] Name: MENDOZA JONHSON Rep #:[id number] : 1975 47 From: Bo Young MD [...] heartbeat lasted for a couple hours) Quality: Baker heartbeat Location: Chest Current Severity: Still does [...] Prior similar symptoms: No Recent Illness/Hospitalization: No [facility] Medical History Hypertension Home Medications Cetirizine Hcl [...] follows: Interpretation: Sinus Rhythm (Rate is 65. MD interval is 150 ms. Cures duration 84 ms. QT duration 404 ms. [place] is normal. There is a premature ventricular [...] your Primary Care Provider. Call [facility] ([phone]) or report to the closest Emergency Room. Call 911 if necessary. 04/28/2316 <Electronically signed by Bo Young MD> Cosigner Signature (if applicable): CC: Dr. Trent Velazquez DO ~ Signed [facility] Work Phone: [phone]) 167-619706-15-2023 Miscellaneous Notes* Telephone Encounter - Yang Nieves [...] 90 days to now be sent to [facility] Pharm. Pharm updated. Call pt only if problem in refilling. Pt is out of her lisinopril. Carlos Turner LPN documented in this encounterOur Lady Of [facility]05-04-2023 Instructions* Patient Instructions* Dania Church APRN.CNP - 01/27/2023 5:29 PM EDT Start augmentin Follow up if no improvement in 7 days documented in this encounterOur Lady Of [facility] [place]05-04-2023 History of Present illness Narrative* Dania Church [...] ibuprofen Dania Church APRN.CNP documented in this encounterOur Lady Of [facility]12-15-2022 History of Present illness Narrative* Lucina Wang APRN.CNP - 09/09/2022 2:26 PM EST Counter Caser offered: Patient declines. Mendoza Johnson presents today [...] which included preparing to see the patient, [id number] patient care, completing clinical documentation, obtaining and/or reviewing separately obtained history, performing a medically appropriate examination, and counseling and educating the patient/family/caregiver. documented in this encounterOur Lady Of [facility]11-30-2022 Instructions* Patient Instructions* Cyn Berry PA-C - 08/25/2022 12:49 PM EST Please update me via Xpliantt in 1 month on how lexapro 10mg is doing for you. Follow up routine in 6 months or sooner as needed. documented in this encounterOur Lady Of [facility]11-30-2022 History of Present illness Narrative* Cyn Berry [...] to 10mg Patient to update me via SavvyCardhart as needed in 1 month. Otherwise follow [...] YR Cyn Berry PA-C documented in this encounterOur Lady Of [facility]11-12-2022 History of Present illness Narrative* Bev Banks [...] illness Bev Banks APRN.CNP documented in this encounterOur Lady Of [facility]11-12-2022 Instructions* Patient Instructions* Bev Banks APRN.CNP - [...] illness Bev Banks APRN.CNP documented in this encounterOur Lady Of [facility]11-12-2022 Miscellaneous Notes* Telephone Encounter - Carlos Turner LPN - 08/07/2022 8:25 AM EST . documented in this encounterOur Lady Of [facility]11-10-2022 Instructions* Patient Instructions* Alissa Barrow Ma - [...] please contact the office. documented in this encounterOur Lady Of [facility]cy [facility]11-10-2022 History of Present illness Narrative* Lucina Wang APRN.DEEPALI - 08/05/2022 8:51 AM EST Counter Caser offered: Patient declines. Mendoza presents today for [...] IUD source: office provided IUD lot #: [id number] Exp date: 10/26/24 UNIVERSAL PROTOCOL / SAFETY [...] patient. Lucina Wang APRN.DEEPALI documented in this encounterOur Lady Of Mercy [facility]11-04-2022 Miscellaneous Notes* Telephone Encounter - Gabi Rachel [...] of labs are normal. documented in this encounterOur Lady Of Mercy [facility]11-02-2022 Miscellaneous Notes* Telephone Encounter - Karmen Mcfadden RN - 07/28/2022 3:51 PM EDT Called patient in an attempt to obtain outside records or recent procedures/ imaging. Patient unable to be reached. Karmen Mcfadden RN documented in this encounterOur Lady Of Mercy [facility]11-01-2022 History of Present illness Narrative* Cyn Berry [...] No history of dysuria, frequency or incontinence SIGNAL TECHNICIAN: Negative for abnormal vaginal bleeding, abnormal vaginal [...] GASTROENTEROLOGY Cyn Berry PA-C documented in this encounterOur Lady Of Mercy [facility]09-29-2022 Instructions* Patient Instructions* Britney Chong APRN.CNP - [...] or sooner as needed. documented in this encounterOur Lady Of Mercy [facility]09-29-2022 History of Present illness Narrative* Britney Chong APRN.CNP - 06/24/2022 10:00 AM EDT This is a 47 year old female who presents today with: Patient presents with: Acute Visit: Elevated BP HISTORY OF PRESENT ILLNESS: Mendoza Johnson is a 47 year old female. Patient presents with: Acute Visit: Elevated BP Patient of Dr. Nieves here in the office for elevated blood pressure. At SIGNAL TECHNICIAN appointment about 1 month ago refers that BP was elevated. Last night didn't feel well. Baker like heart was pounding. Has been having [...] APRN.DEEPALI This note was partially generated using Ignyta voice recognition system. Note was reviewed for accuracy. There may be minor misspellings or grammar miscues with Ignyta voice recognition. documented in this encounterOur Lady Of [facility]cy [facility]08-19-2022 Miscellaneous Notes* Telephone Encounter - Lucina Wang [...] back. Lucina Wang APRN.CNP documented in this encounterOur Lady Of Mercy [facility]07-29-2022 Miscellaneous Notes* Letter - Mammography Coordinator - 04/23/2022 9:53 AM EDT April 23, 2022 PID: [id number] Mendoza Johnson [address] [place] [address] Dear Ms. Johnson, We are pleased to [...] report will be kept on file at [facility] as part of your permanent medical record and are available for your continuing care. Thank you for allowing us to help in meeting your health care needs. Sincerely, Dr. Liu Interpreting Radiologist [facility] (Normal over 40) documented in this encounterOur Lady Of Mercy [facility]07-28-2022 History of Present illness Narrative* RT Harshil(R) [...] 22, 2022 2:46 PM documented in this encounterOur Lady Of Mercy [facility]07-26-2022 History of Present illness Narrative* Lucina Wang APRN.FILLER SHREDDING MACHINE LOADER - 04/20/2022 3:53 PM EDT Mendoza is [...] L2 SAB0 IAB0 Ectopic0 Multiple0 Live Births0 Photo Stylist History LMP: 06/12/2021 (Exact Date), Having periods Age at Menarche: Age at First : Age at Menopause: Photo Stylist History Comments: Sexual Activity: Yes; Male Contraception: [...] external genitalia normal, normal Bartholin's glands, urethra, [place]'s glands, no vulvar lesions, no cervical lesions, [...] needed Lucina Wang APRN.CNP documented in this encounterOur Lady Of [facility]06-08-2022 Miscellaneous Notes* Telephone Encounter - Eliz Reyna APRN.CNM - 03/03/2022 1:03 PM EDT Prescription ordered. Eliz Reyna APRN.CNM * Telephone Encounter - Jayne Maradiaga RN - 03/03/2022 8:51 AM EDT Please review in AG's absence. Thank you. documented in this encounterOur Lady Of [facility]09-24-2021 NoteHNO ID: [id number] Author: Eliane Mo MD Service: ? Author Type: Physician Type: Progress Notes Filed: 06/19/2021 12:21 PM Note Text: VIRTUAL VISIT PROGRESS NOTE This is a virtual visit using Yanado video visit. It required patient-provider interaction for [...] CRITERIA. (J Am Col (more content not included)...[facility]08-03-2021 NoteHNO ID: [id number] Author: RT Iain(R) Service: Radiology Author Type: Eligibility Counselor Type: Progress Notes Filed: 04/28/2021 11:25 AM [...] Mae Michelle, RT(R) April 28, 2021 11:25 [facility]08-03-2021 NoteHNO ID: [id number] Author: Eliane Mo MD Service: ? 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 And (more content not included)...[facility]02-27-2021 History of Present illness Narrative* Ghulam Smith [...] 22, 2020 11:42 AM [facility]* Diagnosis Encounter for gynecological examination with abnormal finding- Primary Routine gynecological examination Menorrhagia with irregular cycle Excessive or frequent menstruation Vaginal yeast infection Candidiasis of vulva and vagina Encounter for screening mammogram for breast cancer [facility]* Diagnosis Encounter for screening mammogram for breast cancer [facility]* Diagnosis Excessive bleeding in premenopausal period- Primary Premenopausal menorrhagia [facility] Diagnosis Excessive bleeding in premenopausal period- Primary Premenopausal menorrhagia [facility]* Diagnosis Hypertension, essential- Primary Unspecified essential hypertension documented in this encounter [facility]* Diagnosis Hypertension, essential Unspecified essential hypertension documented in this encounter [facility]* Diagnosis Well adult exam- Primary Routine general medical examination at a health care facility Hypertension, essential Unspecified essential hypertension Dyslipidemia Other and unspecified hyperlipidemia Encounter for screening for diabetes mellitus Screening for diabetes mellitus 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 Arthropathy, unspecified, site unspecified 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) documented in this encounter [facility]* Diagnosis Encounter for IUD insertion- Primary Encounter for insertion of intrauterine contraceptive device Menorrhagia with irregular cycle Excessive or frequent menstruation Dysmenorrhea documented in this encounter [facility]* Diagnosis Neck pain on right side- Primary Cervicalgia documented in this encounter [facility]* Diagnosis Mild episode of recurrent major depressive disorder (HCC)- Primary Hypertension, essential Unspecified essential hypertension Encounter for immunization Need for other specified prophylactic vaccination against single bacterial disease documented in this encounter [facility]* Diagnosis IUD check up- Primary Surveillance of previously prescribed intrauterine contraceptive device documented in this encounter [facility]* Diagnosis Parotitis, acute- Primary Sialoadenitis documented in this encounter [facility] noteNo assessment information availableWChildren's Hospital for Rehabilitation Work Phone: Evaluation note* Diagnosis Hypertension, essential Unspecified essential hypertension [facility]* Diagnosis Encounter for screening mammogram for breast cancer [facility]* Diagnosis Pain- Primary Generalized pain documented in this encounter [facility]* Diagnosis Calcific tendonitis- Primary Calcium deposits in tendon and bursa [facility]* Diagnosis Pain Generalized pain [facility]* Diagnosis Calcific tendinitis of right shoulder- Primary Calcifying tendinitis of shoulder [facility]* Diagnosis Calcific tendonitis Calcium deposits in tendon and bursa [facility]* Diagnosis Calcific tendinitis of right shoulder- Primary Calcifying tendinitis of shoulder documented in this encounter [facility]* Diagnosis Calcific tendinitis of right shoulder- Primary Calcifying tendinitis of shoulder documented in this encounter [facility]* Diagnosis Calcific tendinitis of right shoulder- Primary Calcifying tendinitis of shoulder documented in this encounter [facility]* Diagnosis Calcific tendinitis of right shoulder- Primary Calcifying tendinitis of shoulder documented in this encounter [facility]* Diagnosis Calcific tendinitis of right shoulder- Primary Calcifying tendinitis of shoulder documented in this encounter [facility]* Diagnosis Calcific tendinitis of right shoulder- Primary Calcifying tendinitis of shoulder documented in this encounter [facility]* Diagnosis Acute cough documented in this encounter [facility] for referral (narrative)* Diagnostic Procedure Only (Routine) - Authorized Specialty Diagnoses / Procedures Referred By Antwon martínez Referred To Contact [facility] Diagnoses Menorrhagia with irregular cycle Procedures PELVIC US WHI US PELVIC NONOBSTETRIC REAL-TIME IMAGE COMPLETE Lucina Wang APRN.FILLER SHREDDING MACHINE LOADER [address] [place] [address] [facility] [place] [address] [place] [id number] Referral ID Status Reason Start Date Expiration Date Visits Requested Visits Authorized [id number] Authorized Auto-Generat ed Referral 04/20/2022 04/20/2023 1 1 * Diagnostic Procedure Only (Routine) - Pending Review Specialty Diagnoses / Procedures Referred By Antwon martínez Referred To Contact [facility] Diagnoses Encounter for screening mammogram for breast cancer Procedures MARCELA SCREENING SCREENING MAMMOGRAPHY BI 2-VIEW BREAST INC CAD Lucina Wang APRN.CNP [address] [place] [address] [facility] [address] [place] [id number] Referral ID Status Reason Start Date Expiration Date Visits Requested Visits Authorized [id number] Pending Review Auto-Generat ed Referral 04/20/2022 05/20/2023 1 1 [facility] for referral (narrative)* Diagnostic Procedure Only (Routine) - Closed Specialty Diagnoses / Procedures Referred By Antwon martínez Referred To Contact [facility] Diagnoses Encounter for screening mammogram for breast cancer Procedures MARCELA SCREENING SCREENING MAMMOGRAPHY BI 2-VIEW BREAST INC CAD Yang Nieves MD [address] [place] [address] [facility] [address] [place] [address] Referral ID Status Reason Start Date Expiration Date V isits Requested Visits Authorized [id number] Closed Auto-Generate d Referral 11/18/2021 12/18/2022 1 1 [facility] for referral (narrative)* Outpatient Procedure (Routine) - Pending Review Specialty Diagnoses / Procedures Referred By Antwon martínez Referred To Contact [facility] Diagnoses Excessive bleeding in premenopausal period Procedures ENDOMETRIAL BIOPSY ENDOMETRIAL BX W/WO ENDOCERVIX BX W/O DILAT SPX Lucina Wang APRN.FILLER SHREDDING MACHINE LOADER [address] [place] [address] [facility] [place] [facility] [place] [address] [place] [id number] Referral ID Status Reason Start Date Expiration Date Visits Requested Visits Authorized [id number] Pending Review Auto-Generat ed Referral 05/14/2022 05/14/2023 1 1 * Outpatient Procedure (Routine) - Pending Review Specialty Diagnoses / Procedures Referred By Antwon martínez Referred To Contact [facility] Diagnoses Excessive bleeding in premenopausal period Procedures INSERT INTRAUTERINE DEVICE LEVONORGESTREL IU 52MG 5 YR INSERT INTRAUTERINE DEVICE Lucina Wang APRN.CNP [address] [place] [address] [facility] [place] [facility] [place] [address] [place] [address] Referral ID Status Reason Start Date Expiration Date Visits Requested Visits Authorized [id number] Pending Review Auto-Generat ed Referral 05/14/2022 05/14/2023 1 1 [facility] for referral (narrative)* Diagnostic Procedure Only (Routine) - Pending Review Specialty Diagnoses / Procedures Referred By Contac t Referred To Contact [facility] Diagnoses Encounter for screening mammogram for breast cancer Procedures MARCELA SCREENING SCREENING MAMMOGRAPHY BI 2-VIEW BREAST INC CAD Yang Nieves MD [address] [place] [address] [facility] [address] [place] [address] Referral ID Status Reason Start Date Expiration Date Visits Requested Visits Authorized [id number] Pending Review Auto-Generat ed Referral 05/25/2023 06/23/2024 1 1 [facility] for referral (narrative)* Diagnostic Procedure Only (Routine) - Authorized Specialty Diagnoses / Procedures Referred By Contac t Referred To Contact [facility]ING Diagnoses Pain Procedures XR SHOULDER GENERAL 3V OR MORE AP/TRUE AP/OTHER RIGHT RADEX SHOULDER COMPLETE MINIMUM 2 VIEWS Benjamin Gagnon MD [address] [place] [address] [place] [address] Referral ID Status Reason Start Date Expiration Date Visits Requested Visits Authorized [id number] Authorized Auto-Generat ed Referral 02/06/2024 03/07/2025 1 1 T [facility] for referral (narrative)* Diagnostic Procedure Only (Urgent) - Authorized Specialty Diagnoses / Procedures Referred By Contac t Referred To Contact [facility] Diagnoses Calcific tendonitis Procedures US SHOULDER RIGHT US COMPL JOINT R-T W/IMAGE DOCUMENTATION Benjamin Gagnon MD [address] [place] [address] [place] [address] Referral ID Status Reason Start Date Expiration Date Visits Requested Visits Authorized [id number] Authorized Auto-Generat ed Referral 02/08/2024 03/09/2025 1 1 [facility] for referral (narrative)* Diagnostic Procedure Only (Urgent) - Closed Specialty Diagnoses / Procedures Referred By Contac t Referred To Contact [facility] Diagnoses Calcific tendonitis Procedures US SHOULDER RIGHT US COMPL JOINT R-T W/IMAGE DOCUMENTATION Benjamin Gagnon MD [address] [place] [address] [place] [address] Referral ID Status Reason Start Date Expiration Date V isits Requested Visits Authorized [id number] Closed Auto-Generate d Referral 02/08/2024 03/09/2025 1 1 [facility] for referral (narrative)No reason for referral information [facility] Work Phone: Reason for visit Narrative* Diagnostic Procedure Only (Routine) - Closed Specialty Diagnoses / Procedures Referred By Contac t Referred To Contact [facility] Diagnoses Encounter for screening mammogram for breast cancer Procedures MARCELA SCREENING SCREENING MAMMOGRAPHY BI 2-VIEW BREAST INC CAD Yang Nieves MD [address] [place] [address] [facility] [address] [place] [address] Referral ID Status Reason Start Date Expiration Date V isits Requested Visits Authorized [id number] Closed Auto-Generate d Referral 11/18/2021 12/18/2022 1 1 [facility] for visit Narrative* Diagnostic Procedure Only (Urgent) - Closed Specialty Diagnoses / Procedures Referred By Contac t Referred To Contact [facility] Diagnoses Calcific tendonitis Procedures US SHOULDER RIGHT US COMPL JOINT R-T W/IMAGE DOCUMENTATION Benjamin Gagnon MD [address] [place] [address] [place] [address] Referral ID Status Reason Start Date Expiration Date V isits Requested Visits Authorized [id number] Closed Auto-Generate d Referral 02/08/2024 03/09/2025 1 1 [facility] Summary Purpose Family History No Family History Records FoundNo Family History Records FoundNo Family History Records Found Advance Directives No Advanced Directives Records Found Advance Directive Response Recorded Date/ Time Advance Directives No May 12:55am Living Will No April 14, 2017 1:40pm Power of Licensed Professional Counselor No April 14 7 1:40pm Advance Directive Response Recorded Date/ Time Advance Directives No May 12:55am Living Will No April 28, 2023 6:43am Power of Licensed Professional Counselor No April 28 6:43am Advance Directive Response Recorded Date/ Time Advance Directives No May 11:55pm Living Will No August 24, 023 8:54pm Power of Licensed Professional Counselor No August 24, 2023 8:54pm Advance Directive Response Recorded Date/ Time Advance Directives No May 12:55am Reason for Referral Specialty Diagnoses / Procedures Referred By Contsloane t Referred To Contact Gastroenterology Diagnoses 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) Procedures CONSULT TO GASTROENTEROLOGY OFFICE/OUTPATIENT [facility] 60-74 MINUTES Cyn Berry PA-C [address] [place] [address] Referral ID Status Reason Start Date Expiration Date Visits Requested Visits Authorized [id number] Authorized PCP Requested Referral 07/27/2022 07/27/2023 1 [...] section and content) DATE CREATED AUTHOR 12/15/2021 [facility] DATE CREATED AUTHOR AUTHOR'S ORGANIZ ATION 06/16/2024 [facility] DATE CREATED AUTHOR AUTHOR'S ORGANIZ ATION 05/08/2025 [facility] Source Comments (unrecognize d section and content) In the event this informatio n is protected by the Federal Confidentiality of Alcohol and Drug Abuse Patient Records regulations: The Federal rules restrict any use of the information to criminally investigate or prosecute any alcohol or drug abuse patient.[facility] the event this information is protected by the Federal Confidentiality of Alcohol and Drug Abuse Patient Records regulations: The Federal rules restrict any use of the information to criminally investigate or prosecute any alcohol or drug abuse patient.[facility] the event this information is protected by the Federal Confidentiality of Alcohol and Drug Abuse Patient Records regulations: The Federal rules restrict any use of the information to criminally investigate or prosecute any alcohol or drug abuse patient.[facility] the event this information is protected by the Federal Confidentiality of Alcohol and Drug Abuse Patient Records regulations: The Federal rules restrict any use of the information to criminally investigate or prosecute any alcohol or drug abuse patient.[facility] the event this information is protected by the Federal Confidentiality of Alcohol and Drug Abuse Patient Records regulations: The Federal rules restrict any use of the information to criminally investigate or prosecute any alcohol or drug abuse patient.[facility] the event this information is protected by the Federal Confidentiality of Alcohol and Drug Abuse Patient Records regulations: The Federal rules restrict any use of the information to criminally investigate or prosecute any alcohol or drug abuse patient.[facility] the event this information is protected by the Federal Confidentiality of Alcohol and Drug Abuse Patient Records regulations: The Federal rules restrict any use of the information to criminally investigate or prosecute any alcohol or drug abuse patient.[facility] the event this information is protected by the Federal Confidentiality of Alcohol and Drug Abuse Patient Records regulations: The Federal rules restrict any use of the information to criminally investigate or prosecute any alcohol or drug abuse patient.[facility] the event this information is protected by the Federal Confidentiality of Alcohol and Drug Abuse Patient Records regulations: The Federal rules restrict any use of the information to criminally investigate or prosecute any alcohol or drug abuse patient.[facility] the event this information is protected by the Federal Confidentiality of Alcohol and Drug Abuse Patient Records regulations: The Federal rules restrict any use of the information to criminally investigate or prosecute any alcohol or drug abuse patient.[facility] the event this information is protected by the Federal Confidentiality of Alcohol and Drug Abuse Patient Records regulations: The Federal rules restrict any use of the information to criminally investigate or prosecute any alcohol or drug abuse patient.[facility] the event this information is protected by the Federal Confidentiality of Alcohol and Drug Abuse Patient Records regulations: The Federal rules restrict any use of the information to criminally investigate or prosecute any alcohol or drug abuse patient.[facility] AndersonIn the event this information is protected by the Federal Confidentiality of Alcohol and Drug Abuse Patient Records regulations: The Federal rules restrict any use of the information to criminally investigate or prosecute any alcohol or drug abuse patient.[facility] the event this information is protected by the Federal Confidentiality of Alcohol and Drug Abuse Patient Records regulations: The Federal rules restrict any use of the information to criminally investigate or prosecute any alcohol or drug abuse patient.[facility] the event this information is protected by the Federal Confidentiality of Alcohol and Drug Abuse Patient Records regulations: The Federal rules restrict any use of the information to criminally investigate or prosecute any alcohol or drug abuse patient.[facility] the event this information is protected by the Federal Confidentiality of Alcohol and Drug Abuse Patient Records regulations: The Federal rules restrict any use of the information to criminally investigate or prosecute any alcohol or drug abuse patient.[facility] Anderson[facility] the event this information is protected by the Federal Confidentiality of Alcohol and Drug Abuse Patient Records regulations: The Federal rules restrict any use of the information to criminally investigate or prosecute any alcohol or drug abuse patient.[facility] the event this information is protected by the Federal Confidentiality of Alcohol and Drug Abuse Patient Records regulations: The Federal rules restrict any use of the information to criminally investigate or prosecute any alcohol or drug abuse patient.[facility] AndersonIn the event this information is protected by the Federal Confidentiality of Alcohol and Drug Abuse Patient Records regulations: The Federal rules restrict any use of the information to criminally investigate or prosecute any alcohol or drug abuse patient.[facility] AndersonIn the event this information is protected by the Federal Confidentiality of Alcohol and Drug Abuse Patient Records regulations: The Federal rules restrict any use of the information to criminally investigate or prosecute any alcohol or drug abuse patient.[facility] AndersonIn the event this information is protected by the Federal Confidentiality of Alcohol and Drug Abuse Patient Records regulations: The Federal rules restrict any use of the information to criminally investigate or prosecute any alcohol or drug abuse patient.[facility]In the event this information is protected by the Federal Confidentiality of Alcohol and Drug Abuse Patient Records regulations: The Federal rules restrict any use of the information to criminally investigate or prosecute any alcohol or drug abuse patient.[facility] AndersonIn the event this information is protected by the Federal Confidentiality of Alcohol and Drug Abuse Patient Records regulations: The Federal rules restrict any use of the information to criminally investigate or prosecute any alcohol or drug abuse patient.[facility] AndersonIn the event this information is protected by the Federal Confidentiality of Alcohol and Drug Abuse Patient Records regulations: The Federal rules restrict any use of the information to criminally investigate or prosecute any alcohol or drug abuse patient.[facility]In the event this information is protected by the Federal Confidentiality of Alcohol and Drug Abuse Patient Records regulations: The Federal rules restrict any use of the information to criminally investigate or prosecute any alcohol or drug abuse patient.[facility]In the event this information is protected by the Federal Confidentiality of Alcohol and Drug Abuse Patient Records regulations: The Federal rules restrict any use of the information to criminally investigate or prosecute any alcohol or drug abuse patient.[facility]In the event this information is protected by the Federal Confidentiality of Alcohol and Drug Abuse Patient Records regulations: The Federal rules restrict any use of the information to criminally investigate or prosecute any alcohol or drug abuse patient.[facility]In the event this information is protected by the Federal Confidentiality of Alcohol and Drug Abuse Patient Records regulations: The Federal rules restrict any use of the information to criminally investigate or prosecute any alcohol or drug abuse patient.[facility]In the event this information is protected by the Federal Confidentiality of Alcohol and Drug Abuse Patient Records regulations: The Federal rules restrict any use of the information to criminally investigate or prosecute any alcohol or drug abuse patient.[facility]In the event this information is protected by the Federal Confidentiality of Alcohol and Drug Abuse Patient Records regulations: The Federal rules restrict any use of the information to criminally investigate or prosecute any alcohol or drug abuse patient.[facility]In the event this information is protected by the Federal Confidentiality of Alcohol and Drug Abuse Patient Records regulations: The Federal rules restrict any use of the information to criminally investigate or prosecute any alcohol or drug abuse patient.[facility]In the event this information is protected by the Federal Confidentiality of Alcohol and Drug Abuse Patient Records regulations: The Federal rules restrict any use of the information to criminally investigate or prosecute any alcohol or drug abuse patient.[facility]In the event this information is protected by the Federal Confidentiality of Alcohol and Drug Abuse Patient Records regulations: The Federal rules restrict any use of the information to criminally investigate or prosecute any alcohol or drug abuse patient.[facility]In the event this information is protected by the Federal Confidentiality of Alcohol and Drug Abuse Patient Records regulations: The Federal rules restrict any use of the information to criminally investigate or prosecute any alcohol or drug abuse patient.[facility]In the event this information is protected by the Federal Confidentiality of Alcohol and Drug Abuse Patient Records regulations: The Federal rules restrict any use of the information to criminally investigate or prosecute any alcohol or drug abuse patient.[facility]In the event this information is protected by the Federal Confidentiality of Alcohol and Drug Abuse Patient Records regulations: The Federal rules restrict any use of the information to criminally investigate or prosecute any alcohol or drug abuse patient.[facility]In the event this information is protected by the Federal Confidentiality of Alcohol and Drug Abuse Patient Records regulations: The Federal rules restrict any use of the information to criminally investigate or prosecute any alcohol or drug abuse patient.[facility]In the event this information is protected by the Federal Confidentiality of Alcohol and Drug Abuse Patient Records regulations: The Federal rules restrict any use of the information to criminally investigate or prosecute any alcohol or drug abuse patient.[facility]In the event this information is protected by the Federal Confidentiality of Alcohol and Drug Abuse Patient Records regulations: The Federal rules restrict any use of the information to criminally investigate or prosecute any alcohol or drug abuse patient.[facility]In the event this information is protected by the Federal Confidentiality of Alcohol and Drug Abuse Patient Records regulations: The Federal rules restrict any use of the information to criminally investigate or prosecute any alcohol or drug abuse patient.[facility]In the event this information is protected by the Federal Confidentiality of Alcohol and Drug Abuse Patient Records regulations: The Federal rules restrict any use of the information to criminally investigate or prosecute any alcohol or drug abuse patient.[facility] AndersonIn the event this information is protected by the Federal Confidentiality of Alcohol and Drug Abuse Patient Records regulations: The Federal rules restrict any use of the information to criminally investigate or prosecute any alcohol or drug abuse patient.[facility] Care Teams (unrecognized sec tion and content) Hazardous Substances Scientist Relationship Specialty Start Date End Date Yang Nieves MD [facility] [place] [address] PCP - General Family Practice 03/13/16 Hazardous Substances Scientist Relationship Specialty Start Date End Date Yang Nieves MD [address] [place] [address] PCP - General Family Practice 03/13/16 Hazardous Substances Scientist Relationship Specialty Start Date End Date Yang Nieves MD [address] [place] [address] PCP - General Family Practice 03/13/16 Hazardous Substances Scientist Relationship Specialty Start Date End Date Yang Nieves MD [address] [place] [address] [place] [address] PCP - General Family Practice 03/13/16 Hazardous Substances Scientist Relationship Specialty Start Date End Date Yang Nieves MD [address] [place] [address] PCP - General Family Practice 03/13/16 Hazardous Substances Scientist Relationship Specialty Start Date End Date Yang Nieves MD [address] [place] [address] [place] [address] PCP - General Family Practice 03/13/16 Hazardous Substances Scientist Relationship Specialty Start Date End Date Yang Nieves MD [address] [place] [address] PCP - General Family Practice 03/13/16 Hazardous Substances Scientist Relationship Specialty Start Date End Date Yang Nieves MD [address] [place] [address] PCP - General Family Medicine 03/13/16 Hazardous Substances Scientist Relationship Specialty Start Date End Date Yang Nieves MD [address] [place] [address] PCP - General Family Medicine 03/13/16 Hazardous Substances Scientist Relationship Specialty Start Date End Date Yang Nieves MD [facility] [place] [address] PCP - General Family Medicine 03/13/16 Hazardous Substances Scientist Relationship Specialty Start Date End Date Yang Nieves MD [address] [place] [address], [place] [address] PCP - General Family Medicine 03/13/16 Hazardous Substances Scientist Relationship Specialty Start Date End Date Yang Nieves MD [address] [place] [address], [place] [address] PCP - General Family Medicine 03/13/16 Hazardous Substances Scientist Relationship Specialty Start Date End Date Yang Nieves MD [facility] [place] [address] PCP - General Family Medicine 03/13/16 Hazardous Substances Scientist Relationship Specialty Start Date End Date Yang Nieves MD [facility] [place] [address] PCP - General Family Medicine 03/13/16 Hazardous Substances Scientist Relationship Specialty Start Date End Date Yang Nieves MD [facility] [place] [address] PCP - General Family Medicine 03/13/16 Hazardous Substances Scientist Relationship Specialty Start Date End Date Yang Nieves MD [facility] [place] [address] PCP - General Family Medicine 03/13/16 Hazardous Substances Scientist Relationship Specialty Start Date End Date Yang Nieves MD [address] [place] [address] PCP - General Family Medicine 03/13/16 Hazardous Substances Scientist Relationship Specialty Start Date End Date Yang Nieves MD [address] [place] [address] PCP - General Family Medicine 03/13/16 Team [...] Dr. Bo Young MD Emergency Provider Active Hazardous Substances Scientist Relationship Specialty Start Date End Date Yang Nieves MD [address] [place] [address] PCP - General Family Medicine 03/13/16 Team Status: Inactive Member Role Status Dates Dr. Trent Velazquez DO Primary Care Provider Active Dr. Bo Young MD Attending Provider, Emergency Provi mila Active Team Status: Inactive Member Role Status Dates Dr. Trent Velazquez DO Primary Care Provider Active Dr. Griselda Stewart DO Emergency Provider Active Hazardous Substances Scientist Relationship Specialty Start Date End Date Trent Velazquez DO [address] [place] [address] PCP - General Family Medicine 12/22/23 Hazardous Substances Scientist Relationship Specialty Start Date End Date Trent Velazquez DO [address] [place], [place] [id number] PCP - General Family Medicine 12/22/23 Hazardous Substances Scientist Relationship Specialty Start Date End Date Labor, Ternt Martínez DO [address] [place] [address] PCP - General Family Medicine 12/22/23 Hazardous Substances Scientist Relationship Specialty Start Date End Date Labor, Trent Martínez DO [address] [place] [address] PCP - General Family Medicine 12/22/23 Hazardous Substances Scientist Relationship Specialty Start Date End Date Labor, Trent Martínez DO [address] [place] [address] PCP - General Family Medicine 12/22/23 Hazardous Substances Scientist Relationship Specialty Start Date End Date Labor, Trent Martínez DO [address] [place] [address] PCP - General Family Medicine 12/22/23 Hazardous Substances Scientist Relationship Specialty Start Date End Date Labor, Trent Martínez DO [address] [place] [address] PCP - General Family Medicine 12/22/23 Hazardous Substances Scientist Relationship Specialty Start Date End Date Labor, Trent Martínez DO [address] [place] [address] PCP - General Family Medicine 12/22/23 Hazardous Substances Scientist Relationship Specialty Start Date End Date Labor, Trent Martínez DO [address] [place] [address] PCP - General Family Medicine 12/22/23 Hazardous Substances Scientist Relationship Specialty Start Date End Date Labor, Trent Martínez DO [address] [place] [address] PCP - General Family Medicine 12/22/23 Hazardous Substances Scientist Relationship Specialty Start Date End Date Trent Velazquez [address] [place] [address] PCP - General Family Medicine 12/22/23 Hazardous Substances Scientist Relationship Specialty Start Date End Date Trent Velazquez [address] [place] [address] PCP - General Family Medicine 12/22/23 Hazardous Substances Scientist Relationship Specialty Start Date End Date Trent Velazquez [address] [place] [id number] PCP - General Family Medicine 12/22/23 Hazardous Substances Scientist Relationship Specialty Start Date End Date Marcus Trent TDO [address] [place] [address] PCP - General Family Medicine 12/22/23 Hazardous Substances Scientist Relationship Specialty Start Date End Date Yang Nieves MD [address] [place] [address] PCP - General Family Medicine 03/13/16 12/21/23 [...] By Antwon martínez Referred To Contact [facility] Diagnoses Calcific tendinitis of right shoulder Procedures CONSULT TO PHYSICAL THERAPY PHYSICAL THERAPY EVALUATION HIGH COMPLEX 45 MINS Chey Plata, DO [address] [place] [address] [address] Referral ID Status Reason Start Date Expiration Date Visits Requested Visits Authorized [id number] Authorized Auto-Generat ed Referral 09/26/2023 09/25/2024 40 40 Reason Comments Physical Therapy Reason Comments PT Progress Note Reason Comments Well 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 Reason Comments Results Orders New Medication Reason Comments Acute Visit Elevated BP Reason Comments Refill Request Reason Comments Yearly Exam Reason Comments Request Outside Medical Records Reason Comments Results Reason Onset Date Comments Insertion Of IUD 08/05/2022 Specialty Diagnoses / Procedures Referred By Antwon martínez Referred To Contact [facility] Diagnoses Excessive bleeding in premenopausal period Encounter for insertion of intrauterine contraceptive device Encounter for removal of intrauterine contraceptive device Procedures INSERT INTRAUTERINE DEVICE LEVONORGESTREL IU 52MG 5 YR INSERT INTRAUTERINE DEVICE REMOVE INTRAUTERINE DEVICE Lucina Wang APRN.FILLER SHREDDING MACHINE LOADER [address] [place] [address] [address] Referral ID Status Reason Start Date Expiration Date Visits Requested Visits Authorized [id number] Authorized Auto-Generat ed Referral 05/24/2022 09/25/2022 2 [...] MINIMUM 2 VIEWS Benjamin Gagnon MD [address] [place] [address] [place] [address] Referral ID Status Reason Start Date Expiration Date V isits Requested Visits Authorized [id number] Closed Auto-Generate d Referral 02/06/2024 03/07/2025 1 [...] - RIGHT SHOULDER Chey Plata, DO [address] [place] [address] Chey Plata, DO [address] [place] [address] Referral ID Status Reason Start Date Expiration Date Visits Re quested Visits Authorized [id number] Closed 03/05/2024 09/25/2024 1 1 Reason Comments [...] BE BASED ON THE PRIMARY CLINICAL RECORDS. [employer] [facility]. provides no warranty or guarantee of the accuracy or completeness of information in this document.
[2025-05-09] MEDS: Lactated Ringers 1,000 ML 15 ML IV (06:38)
[2025-05-09 06:39] LABS: Internal QC Validated? YES +Cl - CLEAR BKGD; Pregnancy, Urine Negative Negative
[2025-05-09 06:40] LABS: Record Kit Lot#,Urine Preg 0000962302
--- NOTE | 2025-05-09 06:43 | PCM.HP.STD ---
HPI - General General Date of Admission: 05/09/25 Date of Service: 05/09/25 Chief Complaint: Abdominal pain, bloating and diarrhea HPI Narrative MENDOZA JOHNSON, is a 49 F who presents for the evaluation of abdominal pain, bloating and diarrhea. She reports with long history of what she describes as IBS symptoms. Pt reports she will eat, her stomach will hurt, and then she will have diarrhea. Pt reports it does not seem to matter what she has eaten. Reports she has cut out gluten before and while it helped her joints, she did not notice a change in GI symptoms. Pt reports she has started having abd pain and bloating with her diarrhea recently. In November of this year noticed a rash on her thighs and stomach, her told her it looks like petechia, urgent care referred her to dermatology for it. Pt reports her last colonoscopy was 10+ years ago. [facility] Medical History Wears contact lenses Wears glasses Anxiety Depression Alcohol use Thyroid disease Back pain Gastric reflux Non-smoker CPAP (continuous positive airway pressure) dependence Sleep apnea Arthritis IBS (irritable bowel syndrome) History of palpitations Allergic dermatitis Hypothyroidism Osteoporosis Hypertension Home Medications ?Medication ?Instructions ?Recorded ?Last Taken ?Type escitalopram oxalate 10 mg tablet 10 mg PO DAILY 04/28/23 05/08/25 History lisinopril 20 mg tablet 20 mg PO DAILY 04/28/23 05/08/25 History Lactobacillus acidophilus 10 100 mmu cells PO DAILY 05/08/25 05/08/25 History billion cell capsule (NewFlora) cetirizine 10 mg tablet (24Hour 10 mg PO DAILY 05/08/25 05/08/25 History Allergy) thyroid (pork) 60 mg tablet 60 mg PO DAILY 05/08/25 05/08/25 History ([place] Thyroid) Allergy/AdvReac Type Severity Reaction Status Date / Time No Known Allergies Allergy Verified 05/09/25 06:34 Surgical History Hx of colonoscopy Hx of tonsillectomy History of appendectomy Social History household members: spouse Smoking Status: Never smoker alcohol intake: current alcohol intake frequency: holidays/special occasions only substance use type: does not use ROS Constitutional Constitutional: Denies fatigue, fever(s), poor appetite, weight gain or weight loss Gastrointestinal Gastrointestinal: Denies belching, bloating, change in bowel habits, change in stool character, chewing difficulty, coffee ground emesis, constipation, cramping, diarrhea, dyspepsia, dysphagia, early satiety, excessive flatus, fecal incontinence, heartburn, hematemesis, hematochezia, hemorrhoids, loose stools, melena, nausea, odynophagia, rectal bleeding, tenesmus, vomiting or weight changes Vital Signs Vital Signs Vital Signs: 05/09/25 06:35 05/09/25 06:35 Temperature 97.6 F L Temperature Source Temporal Pulse Rate 72 Respiratory Rate 16 Respiratory Pattern Normal Blood Pressure 130/81 H Blood Pressure Mean 97 Blood Pressure Source Monitor Blood Pressure Position Semi-Fowlers Blood Pressure Location Right Arm Pulse Ox 96 Oxygen Delivery Method Room Air Weight Weight: 227 lb 4.745 oz Body Mass Index (BMI) 36.6 Physical Exam Const alert, oriented x3, no apparent distress and healthy appearing General Appearance: cooperative GI normal to inspection, nondistended, normoactive bowel sounds, soft to palpation, non-tender and non-distended Percussion: normal to percussion Rectal Exam: deferred Results Lab / Micro Data Labs: Laboratory Results - last 24 hr 05/09/25 06:15: Urine Test Negative Assessment & Plan Assessment/Plan (1) Bloating: (2) Diarrhea: PLAN: Assessment and Plan Assessment and Plan (1) Diarrhea: Status: Acute (2) Bloating: Status: Acute Plan: This is a very pleasant 49-year-old with past medical history of mild depression, hypertension who arrives here for evaluation of abdominal pain, bloating and diarrhea. Patient says this has been going on for multiple years. She did see Dr. 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 She saw a foreign service officer probably 15 years ago who had placed her on Asacol and she actually did pretty well on the medicine but was lost to follow-up. She has been getting an intermittent rash on her abdomen and extremities with associated joint swelling and stiffness of her hands wrists and knees. She saw a melon packer down to [facility] and here in town and was diagnosed with chronic inflammation of the joints. She does not note a specific diagnosis. She again was lost to follow-up. She comes in today because her bloating and abdominal pain is getting a little bit worse along with frequent diarrhea. Her weight has been stable. She denies any night sweats. She denied any travel. She does not have well water. She has not had any change in medicines. Assessment: - Diarrhea-differential diagnosis does include inflammatory bowel disease, microscopic colitis, collagenous colitis, lymphocytic colitis. It also includes but less likely neuroendocrine associated diarrhea, celiac disease. We also discussed the possibility of IBS with diarrhea and pancreatic insufficiency which is also on the differential diagnosis. Plan: She will undergo an upper or lower endoscopy to evaluate upper lower GI tract. We will also do biochemical workup and stool testing. She may need imaging in the future. She okay with this plan. She was explained alternatives, risk and benefits include not withstanding bleeding, infection, subsequent perforation, need for urgent . She will have an ASA of 3. Orders: Orders HARDIK + Protein Elect, Serum Today R14.0 - Abdominal distension (gaseous), R19.7 - Diarrhea, unspecified CBC W/Diff, Automated Today R14.0 - Abdominal distension (gaseous), R19.7 - Diarrhea, unspecified Ferritin Today R14.0 - Abdominal distension (gaseous), R19.7 - Diarrhea, unspecified ANCA Today R14.0 - Abdominal distension (gaseous), R19.7 - Diarrhea, unspecified Comprehensive Metabolic Profil Today R14.0 - Abdominal distension (gaseous), R19.7 - Diarrhea, unspecified CRP Today R14.0 - Abdominal distension (gaseous), R19.7 - Diarrhea, unspecified Erythrocyte Sed Rate Today R14.0 - Abdominal distension (gaseous), R19.7 - Diarrhea, unspecified LDH Today R14.0 - Abdominal distension (gaseous), R19.7 - Diarrhea, unspecified Immunoglobulins G/A/M/E Today R14.0 - Abdominal distension (gaseous), R19.7 - Diarrhea, unspecified Calprotectin, Stool Today R14.0 - Abdominal distension (gaseous), R19.7 - Diarrhea, unspecified Quantiferon TB-Gold+ Today R14.0 - Abdominal distension (gaseous), R19.7 - Diarrhea, unspecified Stool Lactoferrin/WBC Today K58.9 - Irritable bowel syndrome, unspecified, R14.0 - Abdominal distension (gaseous), R19.7 - Diarrhea, unspecified IBD Expanded Profile Today R14.0 - Abdominal distension (gaseous), R19.7 - Diarrhea, unspecified Allergen, Food Profile 14 Today R14.0 - Abdominal distension (gaseous), R19.7 - Diarrhea, unspecified Celiac Disease Profile Today R14.0 - Abdominal distension (gaseous), R19.7 - Diarrhea, unspecified NEENA Comprehensive Panel Today R14.0 - Abdominal distension (gaseous), R19.7 - Diarrhea, unspecified Gastrin, Serum Today R14.0 - Abdominal distension (gaseous), R19.7 - Diarrhea, unspecified Vitamin B12 Today R14.0 - Abdominal distension (gaseous), R19.7 - Diarrhea, unspecified Magnesium Today R14.0 - Abdominal distension (gaseous), R19.7 - Diarrhea, unspecified Phosphorus Today R14.0 - Abdominal distension (gaseous), R19.7 - Diarrhea, unspecified Pancreatic Elastase, Fecal Today R14.0 - Abdominal distension (gaseous), R19.7 - Diarrhea, unspecified Fecal Fat, Qualitative Today R14.0 - Abdominal distension (gaseous), R19.7 - Diarrhea, unspecified OVA+PARA w/Giardia EIA [id number] Today R14.0 - Abdominal distension (gaseous), R19.7 - Diarrhea, unspecified CDIFF (PCR) Today R14.0 - Abdominal distension (gaseous), R19.7 - Diarrhea, unspecified ENTERIC PATHOGEN PANEL STOOL Today K58.9 - Irritable bowel syndrome, unspecified, R14.0 - Abdominal distension (gaseous), R19.7 - Diarrhea, unspecified Thyroid Stim Hormone (TSH) Today R14.0 - Abdominal distension (gaseous), R19.7 - Diarrhea, unspecified Free T4 Today R14.0 - Abdominal distension (gaseous), R19.7 - Diarrhea, unspecified Free T3 Today R14.0 - Abdominal distension (gaseous), R19.7 - Diarrhea, unspecified
--- NOTE | 2025-05-09 06:54 | PCM.PRE.AN2 ---
ASA Classification* ASA Classification ASA Classification: 2 Assessment & Plan Anesthesia* Anesthesia Assessment Anesthesia Assessment: Discussed sedation and/or anesthesia options, risks, benefits, and alternatives with patient/parents/legal guardian/POA. Questions invited. The patient/parents/legal guardian/POA seems to understand and agrees to proceed with anesthesia plan. Reviewed the physical assessment, medical history, allergy history and patient home medications list prior to surgery/procedure/anesthetic and documented any changes. Performed airway and anesthesia risk assessments. Anesthesia Type Anesthesia Type: MAC History Source History Obtained from:: Patient and Chart Anesthesia Focused Assessment* Temperature: 97.6 F Pulse Rate: 72 Blood Pressure: 130/81 Respiratory Rate: 16 Pulse Ox: 96 Oxygen Delivery Method: Room Air Airway Assessment Mouth opens: >3 cm Mallampati Score: I Teeth Condition: Intact Neck Range of motion (ROM): Full ROM Labs Anesthesia Preop lab: CBC WBC 8.3 K/mm3 (4.4-11.0) 05/02/25 07:05/02/25 RBC 4.49 M/mm3 (4.2-5.4) 05/02/25 07:24 05/02/25 Hgb 13.0 g/dL (12.0-15.0) 05/02/25 07:24 05/02/25 Hct 39.4 % (37-47) 05/02/25 07:24 05/02/25 Plt Count 277 K/mm3 (150-450) 05/02/25 07:24 05/02/25 CHEMISTRY Potassium 4.0 mmol/L (3.3-5.1) 05/02/25 07:24 05/02/25 Sodium 139 mmol/L (133-145) 05/02/25 07:24 05/02/25 Magnesium 2.0 mg/dL (1.5-2.2) 05/02/25 07:05/02/25 Phosphorus 3.2 mg/dL (2.7-4.5) 05/02/25 07:24 05/02/25 BUN 15 mg/dL (4-19) 05/02/25 07:24 05/02/25 Creatinine 0.76 mg/dL (0.70-1.20) 05/02/25 07:24 05/02/25 Glucose 98 mg/dL (70-99) 05/02/25 07:24 05/02/25 TSH 1.070 uIU/mL (0.300-4.200) 05/02/25 07:24 05/02/25 COAG Urine Test Negative Negative 05/09/25 06:15 05/09/25 Pre-Assessment Diagnosis/Proposed Procedure Planned Operative Procedure(s): Colonoscopy,EGD Anesthesia History Anesthesia History - stave machine tender: Anesthesia History - stave machine tender Hx Hospitalization No 05/08/25 08:39 Any Problems With Anesthesia No 05/08/25 08:39 Cholinesterase deficiency No 05/08/25 08:39 You/Your Family Experience No 05/08/25 08:39 fever (hyperthermia) with Relationship Recent Exposure to Contagious No 05/09/25 06:35 Disease Does patient have nerve No 05/08/25 08:39 stimulator Patient instructed to have device shut off --Does patient have Pacemaker No 05/09/25 06:35 or ICD? When Was Last Pacemaker Check QUESTION #4 FULL TEXT: You/Your Family Experience fever (hyperthermia) with Anesthesia Last Oral Intake Last Oral intake: Last Oral Intake NPO since 03:00 05/09/25 06:35 Meds taken in AM with sips of No 05/09/25 06:35 water? Meds patient instructed to take am of surgery Any additional information?: Yes NPO since: 03:00 (Patient finished prep at 3 AM.) Meds taken in AM with sips of water?: No PONV PONV - stave machine tender: PONV - stave machine tender Female Yes 05/08/25 08:39 HX of Motion Sickness No 05/08/25 08:39 HX of N/V After Surgery No 05/08/25 08:39 Non-Smoker Yes 05/08/25 08:39 Duration of Surgery greater No 05/08/25 08:39 than 60 minutes Number of Risk Factors 2 05/08/25 08:39 PONV Score Moderate Risk 05/08/25 08:39 Height & Weight Height & Weight: Anesthesia: Height & Weight Height 5 ft 6 in 05/09/25 06:35 Weight: 103.1 kg 05/09/25 06:35 Body Mass Index (BMI) 36.6 05/09/25 06:35 Respiratory Assessment Respiratory Assessment - stave machine tender: Respiratory Tract Infection Hx - stave machine tender Hx Respiratory Tract Infection No 05/08/25 08:39 STOP Sleep Apnea STOP Sleep Apnea - stave machine tender: STOP Sleep Apnea - stave machine tender Hx Hypertension No 05/08/25 08:39 Hx Sleep Apnea Yes 05/08/25 08:39 CPAP Yes 05/08/25 08:39 BIPAP No 05/08/25 08:39 Do you snore loudly (louder No 05/08/25 08:39 than talking or can be heard Do you often feel tired/ No 05/08/25 08:39 fatigued/ sleepy during daytime? Has anyone observed you stop No 05/08/25 08:39 breathing during sleep? STOP Results Positive 05/08/25 08:39 QUESTION #5 FULL TEXT : Do you snore loudly (louder than talking or can be heard through closed doors)? Tobacco Use History Tobacco Use History - stave machine tender: Tobacco Use History - stave machine tender Tobacco Use Smoking Status Never smoker 05/08/25 08:39 Hx Tobacco Use No 05/08/25 08:39 Years Smoking Packs Smoked per Day Smoking Cessation Date was within the last 15 years Hx Smoking Cessation Date Hx Smoking Cessation Counseling Hematologic Medial History Hematologic Hx - stave machine tender: Hematologic Medical Hx - senior mobile web developer Hx of Blood Transfusion No 05/08/25 08:39 Hx of Transfusion in last 3 No 05/08/25 08:39 Months Date of Last Transfusion (if within last 3 months) Ever experience any problems No 05/08/25 08:39 with transfusion(s)? Specify any problems Hx of Preganancy in last 3 No 05/08/25 08:39 Months Nurse Filling Out Transfusion VCHRISTIN 05/08/25 08:39 & Questions: Date: 05/08/25 05/08/25 08:39 Time: 08:40 05/08/25 08:39 Patient unable to answer at this time (ie. confused, unrespo /Reproduction History /Reproductive History - stave machine tender: /Reproductive Hx- stave machine tender Hx Now No 05/08/25 08:39 Gestational Age (in weeks): EDC: Hx Hx Para Hx Section SAB No 05/08/25 08:39 Active Medications Active Medications: Current Medications Generic Name Dose Route Start Last Admin Trade Name Freq PRN Reason Stop Dose Admin Lactated Ringer's 1,000 mls @ 15 mls/hr 05/09/25 06:15 05/09/25 06:38 IV 15 mls/hr .Q48H FELISA Administration PFSH Medical History Wears contact lenses Wears glasses Anxiety Depression Alcohol use Thyroid disease Back pain Gastric reflux Non-smoker CPAP (continuous positive airway pressure) dependence Sleep apnea Arthritis IBS (irritable bowel syndrome) History of palpitations Allergic dermatitis Hypothyroidism Osteoporosis Hypertension Home Medications ?Medication ?Instructions ?Recorded ?Last Taken ?Type escitalopram oxalate 10 mg tablet 10 mg PO DAILY 04/28/23 05/08/25 History lisinopril 20 mg tablet 20 mg PO DAILY 04/28/23 05/08/25 History Lactobacillus acidophilus 10 100 mmu cells PO DAILY 05/08/25 05/08/25 History billion cell capsule (NewFlora) cetirizine 10 mg tablet (24Hour 10 mg PO DAILY 05/08/25 05/08/25 History Allergy) thyroid (pork) 60 mg tablet 60 mg PO DAILY 05/08/25 05/08/25 History ([place] Thyroid) Allergy/AdvReac Type Severity Reaction Status Date / Time No Known Allergies Allergy Verified 05/09/25 06:34 Surgical History Hx of colonoscopy Hx of tonsillectomy History of appendectomy Social History household members: spouse Smoking Status: Never smoker alcohol intake: current alcohol intake frequency: holidays/special occasions only substance use type: does not use Review of Systems (Anesthesia) ROS Narrative System reviewed and no additional complaints, except as documented.
--- NOTE | 2025-05-09 07:00 | EGD_PTH ---
PATIENT: MENDOZA JOHNSON LOC: [facility] U#:[id number] AGE/SX: 49/F ROOM: RE05/09/[address]: Dr. Axel Castaneda DO : 1975 BED: DIS: 05/09/2025 SPEC #: [id number] RECD: 05/09/25 09:08 STATUS: ANGLE KATELYN #: [id number] FREDY: 05/09/25 07:[address]: Axel Castaneda DEPT: SURGICAL PATHOLOGY RECD BY: Kvng Cross ENTERED: 05/09/25 10:45 SP TYPE: EGD BIOPSY NENA DR: Dr. Maryse Velazquez DO Tissues: A - Duodenum, NOS B - Gastric mucous membrane C - Gastric mucous membrane D - Esophagus, NOS E - Rectum, NOS Procedures: Immunohistochemical Stains Surgery Specimen Level IV HEADER OPERATION: Colonoscopy, EGD, biopsy PRE-OP DIAGNOSIS: Diarrhea, bloating TISSUE SUBMITTED: A- Duodenum biopsy, B- Gastric ulcer biopsy, C- Gastric body biopsy, D- Distal esophagus biopsy, E- Rectal polyp biopsy MICROSCOPIC DIAGNOSIS A. Duodenum, biopsy: - Franco gland hyperplasia. - Negative for increased intraepithelial lymphocytes. B. Gastric ulcer, biopsy: - Oxyntic mucosa with ulceration. - Negative for Helicobacter-like organisms (H&E). C. Gastric body, biopsy: - Oxyntic mucosa with no specific pathologic change. - IHC negative for H pylori organisms. D. Distal esophagus, biopsy: - Squamous mucosa with reactive changes and up to 8 eosinophils per high power field. - Columnar mucosa negative for goblet cell metaplasia. E. Rectum, polyp, biopsy: - Hyperplastic polyp. MICROSCOPIC DESCRIPTION Slides are reviewed. All matched controls reacted appropriately. These tests were developed and their performance characteristics determined by [facility]. They may not have been cleared or approved by the U.S. Food and Drug Administration. The FDA has determined that such clearance or approval is not necessary. The above immunohistochemical markers are reviewed by the Pathologist. GROSS DESCRIPTION A. Received in fixative is one container labeled with the patient's name and designated Duodenum biopsy. The specimen consists of multiple irregular fragments of light chase soft tissue that in aggregate measure 0.8 x 0.5 x 0.1 cm. The specimen is totally submitted in one cassette. B. Received in fixative is one container labeled with the patient's name and designated Gastric ulcer biopsy. The specimen consists of two irregular fragments of light chase soft tissue, each measuring 0.4 cm. The specimen is totally submitted in one cassette. C. Received in fixative is one container labeled with the patient's name and designated Gastric body biopsy. The specimen consists of three irregular fragments of light chase soft tissue that measure 0.1 to 0.7 cm. The specimen is totally submitted in one cassette. D. Received in fixative is one container labeled with the patient's name and designated Distal esophagus biopsy. The specimen consists of three irregular fragments of light chase soft tissue that measure 0.1 to 0.3 cm. The specimen is totally submitted in one cassette. E. Received in fixative is one container labeled with the patient's name and designated Rectal polyp biopsy. The specimen consists of one irregular fragment of light chase soft tissue that measures 0.3 cm. The specimen is totally submitted in one cassette. CT 05/09/2025 CPT:35832p4,71764
--- NOTE | 2025-05-09 07:53 | OP.EGD_ITS ---
Patient Name: Sydney Howard Procedure Date: 05/09/2025 7:11 AM Date of : 1975 Age: 49 Procedure: Upper GI endoscopy Indications: Epigastric abdominal pain, Functional Dyspepsia, Heartburn Providers: Axel Castaneda DO Medicines: Monitored Anesthesia Care Patient Profile: This is a 49 year old female. Refer to note in patient chart for documentation of history and physical. Patient has symptoms of acute epigastric abdominal pain. Complications: No immediate complications. Procedure: Pre-Anesthesia Assessment: - Prior to the procedure, a History and Physical was performed, and patient medications and allergies were reviewed. The patient is competent. The risks and benefits of the procedure and the sedation options and risks were discussed with the patient. All questions were answered and informed consent was obtained. Patient identification and proposed procedure were verified by the physician in the pre-procedure area. Mental Status Examination: alert and oriented. Airway Examination: normal oropharyngeal airway and neck mobility. Respiratory Examination: clear to auscultation. CV Examination: normal. Prophylactic Antibiotics: The patient does not require prophylactic antibiotics. Prior Anticoagulants: The patient has taken no anticoagulant or antiplatelet agents except for NSAID medication. ASA Grade Assessment: III - A patient with severe systemic disease. After reviewing the risks and benefits, the patient was deemed in satisfactory condition to undergo the procedure. The anesthesia plan was to use monitored anesthesia care (MAC). Immediately prior to administration of medications, the patient was re-assessed for adequacy to receive sedatives. The heart rate, respiratory rate, oxygen saturations, blood pressure, adequacy of pulmonary ventilation, and response to care were monitored throughout the procedure. The physical status of the patient was re-assessed after the procedure. After obtaining informed consent, the endoscope was passed under direct vision. Throughout the procedure, the patient's blood pressure, pulse, and oxygen saturations were monitored continuously. The Colonoscope was introduced through the mouth, and advanced to the fourth part of the duodenum. Small bowel enteroscopy was deemed necessary. The upper GI endoscopy was accomplished without difficulty. The patient tolerated the procedure well. Scope In: 7:19:17 AM Scope Out: 7:25:44 AM Total Procedure Duration Time 0 hours 6 minutes 27 seconds Findings: LA Grade B (one or more mucosal breaks greater than 5 mm, not extending between the tops of two mucosal folds) esophagitis with no bleeding was found 36 to 40 cm from the incisors. Biopsies were taken with a cold forceps for histology. Verification of patient identification for the specimen was done. Estimated blood loss was minimal. Patchy mildly erythematous mucosa without bleeding was found in the gastric body. Biopsies were taken with a cold forceps for histology. Biopsies were taken with a cold forceps for Helicobacter pylori testing. Verification of patient identification for the specimen was done. Estimated blood loss was minimal. Two non-bleeding cratered gastric ulcers with no stigmata of bleeding were found in the gastric antrum. The largest lesion was 6 mm in largest dimension. Biopsies were taken with a cold forceps for histology. Verification of patient identification for the specimen was done. Biopsies were taken with a cold forceps for Helicobacter pylori testing. Verification of patient identification for the specimen was done. Estimated blood loss was minimal. No gross lesions were noted in the entire examined duodenum. Biopsies were taken with a cold forceps for histology. Verification of patient identification for the specimen was done. Estimated blood loss was minimal. Impression: - LA Grade B reflux esophagitis with no bleeding. Biopsied. - Erythematous mucosa in the gastric body. Biopsied. - Non-bleeding gastric ulcers with no stigmata of bleeding. Biopsied. - No gross lesions in the entire examined duodenum. Biopsied. Recommendation: - Discharge patient to home. - Resume previous diet. - Continue present medications. - Await pathology results. - Repeat upper endoscopy in 1 year for surveillance. Procedure Code(s): --- Professional --- 73981, Small intestinal endoscopy, enteroscopy beyond second portion of duodenum, not including ileum; with biopsy, single or multiple CPT copyright 2021 [employer]. All rights reserved. The codes documented in this report are preliminary and upon packer operator automatic review may be revised to meet current compliance requirements. Axel Castaneda DO 05/09/2025 7:53:12 AM This report has been signed electronically. Number of Addenda: 0 Note Initiated On: 05/09/2025 7:11 AM
--- NOTE | 2025-05-09 07:54 | OP.PROVAT_ITS ---
05/09/2025 Maryse Velazquez DO [employer]. [address] [place] [id number] Re : Upper GI endoscopy procedure for Sydney Howard Dear Dr. Velazquez This procedure was performed on April. My impressions and recommendations are as follows: Impressions : - LA Grade B reflux esophagitis with no bleeding. Biopsied. - Erythematous mucosa in the gastric body. Biopsied. - Non-bleeding gastric ulcers with no stigmata of bleeding. Biopsied. - No gross lesions in the entire examined duodenum. Biopsied. Recommendations : - Discharge patient to home. - Resume previous diet. - Continue present medications. - Await pathology results. - Repeat upper endoscopy in 1 year for surveillance. My findings are described in the full procedure note, which is enclosed. If I can be of further assistance, please feel free to contact me at . Sincerely, Axel Castaneda DO 05/09/2025 7:53:12 AM This report has been signed electronically.
--- NOTE | 2025-05-09 07:56 | OP.COLON_ITS ---
Patient Name: Sydney Howard Procedure Date: 05/09/2025 7:25 AM Date of : 1975 Age: 49 Procedure: Colonoscopy Indications: Screening for colorectal malignant neoplasm Providers: Axel Castaneda DO Medicines: Monitored Anesthesia Care Patient Profile: This is a 49 year old female. Refer to note in patient chart for documentation of history and physical. Patient has symptoms of acute epigastric abdominal pain. Last Colonoscopy: more than 10 years ago. Complications: No immediate complications. Procedure: Pre-Anesthesia Assessment: - Prior to the procedure, a History and Physical was performed, and patient medications and allergies were reviewed. The patient is competent. The risks and benefits of the procedure and the sedation options and risks were discussed with the patient. All questions were answered and informed consent was obtained. Patient identification and proposed procedure were verified by the physician in the pre-procedure area. Mental Status Examination: alert and oriented. Airway Examination: normal oropharyngeal airway and neck mobility. Respiratory Examination: clear to auscultation. CV Examination: normal. Prophylactic Antibiotics: The patient does not require prophylactic antibiotics. Prior Anticoagulants: The patient has taken no anticoagulant or antiplatelet agents except for NSAID medication. ASA Grade Assessment: III - A patient with severe systemic disease. After reviewing the risks and benefits, the patient was deemed in satisfactory condition to undergo the procedure. The anesthesia plan was to use monitored anesthesia care (MAC). Immediately prior to administration of medications, the patient was re-assessed for adequacy to receive sedatives. The heart rate, respiratory rate, oxygen saturations, blood pressure, adequacy of pulmonary ventilation, and response to care were monitored throughout the procedure. The physical status of the patient was re-assessed after the procedure. After I obtained informed consent, the scope was passed under direct vision. Throughout the procedure, the patient's blood pressure, pulse, and oxygen saturations were monitored continuously. The Colonoscope was introduced through the anus and advanced to the cecum, identified by appendiceal orifice and ileocecal valve. The colonoscopy was performed without difficulty. The patient tolerated the procedure well. The quality of the bowel preparation was adequate. The ileocecal valve, appendiceal orifice, and rectum were photographed. Scope In: 7:27:28 AM Scope Withdrawal Time 0 hours 13 minutes 11 seconds Scope Out: 7:44:54 AM Total Procedure Duration Time 0 hours 17 minutes 26 seconds Findings: The perianal and digital rectal examinations were normal. A few small-mouthed diverticula were found in the recto-sigmoid colon. A 7 mm polyp was found in the rectum. The polyp was sessile. The polyp was removed with a jumbo cold forceps. Resection and retrieval were complete. Verification of patient identification for the specimen was done. Estimated blood loss was minimal. The exam was otherwise without abnormality on direct and retroflexion views. Impression: - Diverticulosis in the recto-sigmoid colon. - One 7 mm polyp in the rectum, removed with a jumbo cold forceps. Resected and retrieved. - The examination was otherwise normal on direct and retroflexion views. Recommendation: - Discharge patient to home. - Resume previous diet. - Continue present medications. - Await pathology results. - Repeat colonoscopy in 5 years for surveillance. Procedure Code(s): --- Professional --- 18108, Colonoscopy, flexible; with biopsy, single or multiple CPT copyright 2021 [employer]. All rights reserved. The codes documented in this report are preliminary and upon plant sciences professor review may be revised to meet current compliance requirements. Axel Castaneda DO 05/09/2025 7:56:20 AM This report has been signed electronically. Number of Addenda: 0 Note Initiated On: 05/09/2025 7:25 AM
--- NOTE | 2025-05-09 07:56 | OP.PROVAT_ITS ---
05/09/2025 Maryse Velazquez DO [employer]. [address] [place] [id number] Re : Colonoscopy procedure for Sydneyalannah Howard Dear Dr. Velazquez This procedure was performed on April. My impressions and recommendations are as follows: Impressions : - Diverticulosis in the recto-sigmoid colon. - One 7 mm polyp in the rectum, removed with a jumbo cold forceps. Resected and retrieved. - The examination was otherwise normal on direct and retroflexion views. Recommendations : - Discharge patient to home. - Resume previous diet. - Continue present medications. - Await pathology results. - Repeat colonoscopy in 5 years for surveillance. My findings are described in the full procedure note, which is enclosed. If I can be of further assistance, please feel free to contact me at . Sincerely, Axel Castaneda DO 05/09/2025 7:56:20 AM This report has been signed electronically.
--- NOTE | 2025-05-09 07:56 | PCM.POST.ANE ---
Anesthesia: Postop Eval I Current Vital Signs Temperature: 97 F Pulse Rate: 76 Blood Pressure: 118/72 Respiratory Rate: 16 Pulse Ox: 98 Oxygen Delivery Method: Room Air Assessment Airway patent: Yes Spontaneous unlabored respirations: Yes Mental status: Awake and Calm nausea: No Vomiting: No Anesthesia Complication: No Fluid Hydration Crystalloid volume administer (ml): 700 Total IV fluid infused: 700 Progress Note Anesthesia document: Postop Eval 1 completed: Yes
== END 2025-05-09 08:53 | disposition home or self-care (01) ==
LOC: EN 06:03 → AC 06:04
PROVIDERS: Anesthesiology; PCP Family Medicine; Referring Provider Family Medicine; Visit Provider Internal Medicine Gastroenterology
PROC: 0DJD8ZZ Inspection of Lower Intestinal Tract, Via Natural or Artificial Opening Endoscopic (ICD-10-PCS; CPT 45378; principal; 2025-05-09 06:55)
DX: K21.00 Gastro-esophageal reflux disease with esophagitis, without bleeding (principal); K62.1 Rectal polyp; K57.30 Diverticulosis of large intestine without perforation or abscess without bleeding; K25.9 Gastric ulcer, unspecified as acute or chronic, without hemorrhage or perforation; K31.89 Other diseases of stomach and duodenum; K58.9 Irritable bowel syndrome, unspecified; I10 Essential (primary) hypertension; F32.A Depression, unspecified; F41.9 Anxiety disorder, unspecified; E03.9 Hypothyroidism, unspecified; Z79.899 Other long term (current) drug therapy; Z79.890 Hormone replacement therapy
CPT/HCPCS: 44361; 45380; 81025; 88305; 88342; J2405

== ENCOUNTER → 2025-06-19 | Outpatient (CLI) | payer OTHER, SELFPAY ==
--- OUTSIDE RECORDS SUMMARY | 2025-06-19 07:06 | XMS RPT_ITS | CCD ---
Author Organization [facility] Care Team Providers Care Second Helper Name Role Phone Paul VIERA, Yang Horn Primary Care Provider [phone] Labor DO, Trent Martínez Primary Care Provider [phone] Yang Nieves MD Primary Care Provider [phone] Labor DO, Dr. Serra Primary Care Provider Labor DO, Dr. Serra Referring Provider Rojelio Chase Attending Provider [phone] Friend DO, Dr. Reyna Attending Provider Friend DO, Dr. Reyna Referring Provider Labor DO, Dr. Serra Primary Care Provider Labor DO, Dr. Serra Referring Provider Friend DO, Dr. Reyna Other Provider [phone] LABOR, TRENT T Primary Care Unavailable BENTON YUEN Attending Unavailable Labor, Trent Referring Unavailable Labor, Trent Primary Care Unavailable Friend, Axel Attending Unavailable Labor, Trent Primary Care Unavailable Friend, Axel Attending Unavailable Friend, Axel Referring Unavailable Labor, Trent Primary Care Unavailable Friend, Axel Attending Unavailable Friend, Axel Referring Unavailable Labor, Trent Attending Unavailable Labor, Trent Primary Care Unavailable Labor, Trent Referring Unavailable Labor, Trent Primary Care Unavailable Friend, Axel Referring Unavailable Friend, Axel Attending Unavailable Assessment, Health Risk Attending Unavaila ble Assessment, Health Risk Referring Unavaila ble Labor, Trent Primary Care Unavailable Labor, Trent Attending Unavailable Labor, Trent Referring Unavailable Labor, Trent Primary Care Unavailable Labor, Trent Referring Unavailable Labor, Trent Primary Care Unavailable Friend, Axel Attending Unavailable Labor, Trent Referring Unavailable Labor, Trent Primary Care Unavailable Friend, Axel Consulting Unavailable Friend, Axel Attending Unavailable Rojelio Chase Attending Unavailable Labor, Trent Referring Unavailable Labor, Trent Primary Care Unavailable Allergies Allergy Classification Reported Allergen(s) Allergy Type Date of Onset Reaction(s) Facility Pollen (2 sources) Tree and shrub pollen Substance Allergy 0 Other: See Comments [facility] Work Phone: (20 sources) Tree and shrub pollen; Translations: [TREE AND SHRUB POLLEN] Drug Allergy 0 Other: See Comments [facility] Work Phone: Medications Current Medications Medication Drug Class(es) Dates Sig (Normalized) Sig (Original) acetaminophen 325 mg / oxyCODONE hydrochloride 5 mg oral tablet (17 sources) Opioid Agonist Start: 02-07-2024 oxyCODONE-acetam inophen (PERCOCET) 5-325 mg tablet 02/07/2024 Active amoxicillin 875 mg / clavulanate 125 mg oral tablet (1 source) Penicillin-class Antibacterial Start: 01-27-2023 End: 02-03-2023 take 1 tablet by mouth twice daily amoxicillin-clav ulanic acid (AUGMENTIN) 875-125 mg per tablet Indications: Parotitis, acute Take 1 tablet by mouth twice daily for 7 days. 14 tablet 0 01/27/2023 02/03/2023 Active Comment on above: Take 1 tablet by arnaldo th twice daily for 7 days. cetirizine hydrochloride 10 mg oral tablet (20 sources) Histamine-1 Receptor Antagonist Start: 05-08-2025 take 1 tablet by mouth once daily Cetirizine (24hour Allergy) 10 mg tablet Active 10 mg PO DAILY May 08, 2025 12:00am Start: 05-31-2014 End: 01-07-2025 take 1 tablet by mouth once daily Cetirizine Hcl (Zyrtec) 10 MG tablet Discontinued 10 mg PO DAILY June 15, 2016 12:00am January 07, 2025 6:54am Comment on above: Take 1 tablet by arnaldo th once daily. escitalopram 10 mg oral tablet (20 sources) Serotonin Reuptake Inhibitor Start: take 1 tablet by mouth once daily [...] oral tablet (1 source) Azole Antifungal Start: 03-03-20 End: 03-03-20 take 1 tablet by mouth once fluconazole (DIFLUCAN) 150 mg tablet Take 1 tablet by mouth one time only for 1 dose. 1 tablet 0 03/03/2022 03/03/2022 Active Comment on above: Take 1 tablet by arnaldo th one time only for 1 dose. lactobacillus acidophilus [id number] unt oral capsule (2 sources) Start: 05-08-20 25 take 10 capsules by mouth once daily Lactobacillus Acidophilus (Newflora) 10 billion cell capsule Active 100 NMA PO DAILY May 08, 2025 12:00am lisinopril 20 mg oral tablet (20 sources) Angiotensin Converting Enzyme Inhibitor Start: 04-28-20 23 take 1 tablet by mouth once daily [...] 11/22/2020 12/10/2020 Discontinued (Course of therapy completed) Thyroid (Pork) (Thyroid (Pork) 60 Mg Tablet) 60 mg tablet (2 sources) Start: 05-08-2025 take 1 tablet by mouth once daily Thyroid (Pork) (Thyroid (Pork) 60 Mg Tablet) 60 mg tablet Active 60 mg PO DAILY May 08, 2025 12:00am traMADol hydrochloride 50 mg oral tablet (1 [...] / HYDROcodone bitartrate 5 mg oral tablet (5 sources) Opioid Agonist Start: 08-24-2023 End: 01-07-2025 Hydrocodone-Acetami nophen 5-325 mg tablet Discontinued 1 {tbl} PO EVERY 4 HOURS NEEDED as needed for Pain 10 2 August 24, 2023 January 07, 2025 6:54am [...] no more than 6 in 24 hours. cyclobenzaprine hydrochloride 10 mg oral tablet (1 [...] Discontinued dicyclomine hydrochloride 10 mg oral capsule (5 sources) Anticholinergic Start: 08-24-2023 End: 01-07-2025 take [...] 03-09-2024 keTORolac 60 mg injection (Toradol) levonorgestrel 0.031739 mg/hr intrauterine system (20 sources) Progestin, Progestin-containin [...] Take 1 tablet by arnaldo twice daily as needed for Pain. Take with food. ondansetron 4 mg disintegrating oral tablet (5 sources) Serotonin-3 Receptor Antagonist Start: 08-24-2023 End: 01-07-2025 take 1 tablet by mouth every eight hours as needed for nausea Ondansetron 4 mg tablet,disintegrat ing Discontinued 4 mg PO EVERY 8 HOURS NEEDED as needed for Nausea 10 0 August 24, 2023 1:00am January 07, 2025 6:54am predniSONE 10 mg oral tablet (4 sources) Start: 01-07-2025 End: 04-15-2025 take 4 [...] Date Documented Da te Episodic/Chronic Abdominal pain (6 sources) Abdominal pain; Translations: [Unspecified abdominal pain] Onset: 5 08-24-2023 Episodic Allergic reactions (6 sources) Allergic disorder of skin; Translations: [Allergic contact dermatitis, unspecified cause] 01-07-2025 Episodic Cardiac dysrhythmias (6 sources) Ventricular premature complex; Translations: [Ventricular premature depolarization] 04-28-2023 Chronic Contraceptive and procreative management (2 sources) Intrauterine contraceptive device in situ; Translations: [Encounter for routine checking of intrauterine contraceptive device] Onset: 5 Episodic Diseases of mouth; excluding dental (1 [...] right shoulder] Onset: 4 02-22-2024 Episodic Other connective tissue disease (1 source) Other muscle spasm; Translations: [Levator spasm] Onset: 5 Episodic Other female genital disorders (1 source) Other specified noninflammatory disorders of vulva and perineum; Translations: [Vulval lesion] Onset: 5 Episodic Other gastrointestinal disorders (1 source) Irritable bowel syndrome without diarrhea; Translations: [Irritable bowel syndrome, unspecified] Onset: 5 Chronic Other gastrointestinal disorders (10 sources) Diarrhea; Translations: [Diarrhea, unspecified] 04-15-2025 Episodic Other gastrointestinal disorders (10 sources) Abdominal bloating; Translations: [Abdominal distension (gaseous)] 04-15-2025 Episodic Other gastrointestinal disorders (2 sources) Diarrhea, unspecified; Translations: [Diarrhea, unspecified] Onset: 5 Episodic Other gastrointestinal disorders (2 sources) Abdominal distension (gaseous); Translations: [Abdominal distension (gaseous)] Onset: 5 Episodic Other lower respiratory disease (1 source) [...] [Pain, unspecified] 02-06-2024 Episodic Residual codes; unclassified (6 sources) History of palpitations; Translations: [Personal history of other specified conditions] 01-07-2025 Episodic Spondylosis; intervertebral disc disorders; other back problems (1 source) Neck pain; Translations: [Cervicalgia] Episodic Unclassified (12 sources) Tendon Injection (Shoulder) Pre Onset: 4 02-23-2024 Past or Other Problems Problem Classification Problem Date Documented Da te Episodic/Chronic Other connective tissue disease (20 sources) Myofascial pain with referral; Translations: [Myalgia, other site] Onset: 05-05-2021 05-05-2021 Episodic Other non-traumatic joint disorders (20 sources) [...] for diabetes mellitus] Onset: 03-13-2016 03-13-2016 Episodic Viral infection (20 sources) Verruca vulgaris; Translations: [Viral wart, unspecified] Onset: 02-18-2017 02-18-2017 Episodic Results Test Name Value Interpretation Reference Range Facility [facility] 06-11-2025 CNOV Office Visit (OBGYWM ) ----- MENDOZA JOHNSON ([id number]) 1975 F Date Time Provider Department 06/11/25 11:30 AM BENTON YUEN OBGYWM During your visit today, we recorded the following information about you: Blood pressure Weight 118/70 105.7 kg Benton Yuen MD 06/13/2025 4:43 PM Signed Obstetrics and Gynecology [facility] DIRECTOR SPECIALTY Visit Subjective Recording using Zane Prep software for draft documentation of the visit was discussed with the patient/authorized technology sales representative; all questions welcomed and answered. Patient/authorized technology sales representative agreed to proceed CHIEF COMPLAINT: The patient is a 50-year-old female with arthritis, presenting for evaluation of pelvic pain and persistent abdominal petechiae. HPI: The patient is a 50-year-old female with a history of arthritis, inflammatory bowel disease, and perimenopausal symptoms presenting with pelvic pain and petechiae. - Reports persistent pelvic pain despite treatment and evaluation of resolution of recent gastrointestinal issues. - Describes pain as sharp and localized to the pelvic and upper abdominal areas, exacerbated by a full bladder. - Denies cyclical nature of pain. - Experiences dyspareunia. - Recent upper and lower endoscopies revealed esophageal and gastric inflammation, two ulcers, and diverticulitis; biopsies were performed. - Currently on medication for gastrointestinal issues, which has alleviated heartburn and nausea but not pelvic pain. - History of colonoscopy over 10 years ago showing inflammation at the base of the colon; was treated with Asacol. Petechiae - Reports petechiae on the abdomen and occasionally on the legs, waxing and waning over the past year. - Denies associated itching, burning, or pain. - No history of easy bruising, prolonged bleeding, or new trauma. - No new medications prior to onset of petechiae. - No history of eczema or sensitive skin. - Evaluated at urgent care in December; prescribed prednisone but no further evaluation was performed. Arthritis - Diagnosed with arthritis; reports joint swelling and aching, particularly in the hands, lower back, hips, and feet. - Previous rheumatology evaluation revealed elevated inflammatory markers but no diagnosis of rheumatoid arthritis. - Was on unspecified medication for arthritis but discontinued follow-up due to multiple canceled appointments. Perimenopausal Symptoms - Experiencing hot flashes, described as severe enough to cause sweating during activities. - Reports sleeping well despite hot flashes. - Taking a prebiotic, probiotic, and estrogen to manage symptoms, but notes minimal improvement. Current Medications and Supplements - Prebiotic - Probiotic - Estrogen - Upper and lower endoscopies (recent): Esophageal and gastric inflammation, two ulcers, and diverticulitis; biopsies performed. HISTORY: OB History Gravida2 Para0 Term0 Preterm0 AB0 Living2 SAB0 IAB0 Ectopic0 Multiple0 Live Births0 Lean Manager History LMP: 08/02/2022 (Approximate), IUD Age at Menarche: Age at First : Age at Menopause: Lean Manager History Comments: Sexual Activity: Yes; Male Contraception: Vasectomy PAST MEDICAL HISTORY Diagnosis Date ADD [...] PAST SURGICAL HISTORY Procedure Laterality Date COLONOSCOPY 05/09/2025 COLONOSCOPY FLX DX W/COLLJ SPEC WHEN PFRMD 06/07/2014 repeat 10 yrs EGD W/O BRSH SPEC VARICIES INJ 05/09/2025 INSERT INTRAUTERINE DEVICE 08/05/2022 Mirena LAPAROSCOPIC APPENDECTOMY 06/17/2016 SHOULDER SURGERY HX Right 02/2024 TONSILLECTOMY PRIMARY/SECONDARY Tonsillectomy alone FAMILY HISTORY Problem Relation Age of Onset Arthritis Mother VANESSA Hypertension Mother Arthritis Father VANESSA Diabetes Father Melanoma Father No Known Problems Brother Arthritis Maternal Grandmother Alzheimer's Disease Maternal Grandfather Cancer Paternal Grandmother Diabetes Paternal Grandfather Breast Cancer Maternal Aunt SOCIAL HISTORY[1] Current Outpatient Medications Medication Sig sucralfate (CARAFATE) [address] (PROTONIX) 40 mg tablet ARMOUR THYROID 60 mg tablet escitalopram oxalate (LEXAPRO) 10 mg tablet Take 1 tablet by mouth once daily. lisinopril (ZESTRIL) 20 mg tablet Take 1 tablet by mouth once daily. levonorgestrel (MIRENA) 20 mcg/24 hours (8 yrs) 52 mg IUD 1 Each by INTRAUTERINE route one time only. cetiriz (more content not included)... Normal [facility] M7400.3302on 06-04-2025 M7400.3302 TESTING PERFORMED AT [facility]. ORIGINAL REPORT ON FILE IN LAB CONTAINS ADDITIONAL TEST SITE INFORMATION. Giardia Lamblia EIA NEGATIVE Normal [facility] Comment on above: Performed By: #### L 7000.0750, M100.0605, L7000.0300, M100.6796, M100.637, M600.5000, L7000.0700, M7400.3302 #### [facility] [address] [place], [address] Ova and Parasites 8623on OP OVA AND PARASITES EX AM, ROUTINE These results were obtained using wet preparation(s) and trichrome stained smear. This test does not include testing for Crytosporidium parvum, Cyclospora, or Microsporidia. One negative specimen does not rule out the possibility of a parasitic infection. TESTING PERFORMED AT [facility]. ORIGINAL REPORT ON FILE IN LAB CONTAINS ADDITIONAL TEST SITE INFORMATION. Ova/Parasite Exam NO OVA, CYSTS, OR PARASITES FOUND. Normal [facility] Comment on above: Performed By: #### L 7000.0750, M100.0605, L7000.0300, M100.6796, M100.637, M600.5000, L7000.0700, M7400.3302 #### [facility] [address] [place], [place], [address] ANCAon 05-16-2025 Atypical pANCA <1:20 Normal Neg:<1:20 [facility] Comment on above: Result Comment: The atypical pANCA pattern has been observed in a significant percentage of patients with ulcerative colitis, primary sclerosing cholangitis and autoimmune hepatitis. Performed By: #### L 7000.0750, M100.0605, L7000.0300, M100.6796, M100.637, M600.5000, L7000.0700, M7400.3302 #### [facility] [address] [place], [address] Cytoplasmic Ab <1:20 Normal Neg:<1:20 [facility] Comment on above: Performed By: #### L 7000.0750, M100.0605, L7000.0300, M100.6796, M100.637, M600.5000, L7000.0700, M7400.3308 #### [facility] [address] [place], [address] Perinuclear Ab. <1:20 Normal Neg:<1:20 [facility] Comment on above: Result Comment: The presence of positive fluorescence exhibiting P-ANCA or C-ANCA patterns alone is not specific for the diagnosis of Titus's Granulomatosis (WG) or microscopic polyangiitis. Decisions about treatment should not be based solely on ANCA IFA results. The International ANCA Group Consensus recommends follow up testing of positive sera with both AZ- 3 and MPO-ANCA enzyme immunoassays. As many as 5% serum samples are positive only by EIA. Ref. AM J Clin Pathol 1999;111:507-513. Performed By: #### L 7000.0750, M100.0605, L7000.0300, M100.6796, M100.637, M600.5000, L7000.0700, M7400.3302 #### [facility] [address] [place], [address] Celiac Disease Profileon ENDOMYSIAL IGA Negative Normal Negative [facility] Comment on above: Performed By: #### L 7000.0750, M100.0605, L7000.0300, M100.6796, M100.637, M600.5000, L7000.0700, M7400.3302 #### [facility] [address] [place], [address] tTG IGA <2 Normal 0-3 [facility] Comment on above: Result Comment: Nega tive 0 - 3 Weak Positive 4 - 10 Positive >10 Tissue Transglutaminase (tTG) has been identified as the endomysial antigen. Studies have demonstr- ated that endomysial IgA antibodies have over 99% specificity for gluten sensitive enteropathy. Performed By: #### L 7000.0750, M100.0605, L7000.0300, M100.6796, M100.637, M600.5000, L7000.0700, M7400.3302 #### [facility] [address] [place], [address] Gastrin, Serumon 05-16-2025 GASTRIN 17 pg/mL Normal 0-115 [facility] Comment on above: Result Comment: Siem ens Immulite 2000 Immunochemiluminometric assay (ICMA) Values obtained with different assay methods or kits cannot be used interchangeably. Results cannot be interpreted as absolute evidence of the presence or absence of malignant disease. Performed at: [address] [id number] Program Evaluation Consultant: Angel Campos PhD, Phone: [phone] Performed at: [address] [id number] Program Evaluation Consultant: Davian Gudino MD, Phone: [phone] Performed By: #### L 7000.0750, M100.0605, L7000.0300, M100.6796, M100.637, M600.5000, L7000.0700, M7400.3302 #### [facility] [address] [place], [place], [id number] HARDIK + Protein Elect, Serumon 05-16-2025 Albumin [Mass/Vol] 3.3 g/dL Normal 2.9-4.4 [facility] Comment on above: Order Comment: Y Performed By: #### L 7000.0750, M100.0605, L7000.0300, M100.6796, M100.637, M600.5000, L7000.0700, M7400.3302 #### [facility] [address] [place], [address] Albumin/Globulin [Mass ratio] 1.0 {ratio} Normal 0.7-1.7 [facility] Comment on above: Order Comment: Y Performed By: #### L 7000.0750, M100.0605, L7000.0300, M100.6796, M100.637, M600.5000, L7000.0700, M7400.3302 #### [facility] [address] [place], [place], [id number] (351) SFCLJ-5-BPNS 0.3 g/dL Normal 0.0-0.4 [facility] Comment on above: Order Comment: Y Performed By: #### L 7000.0750, M100.0605, L7000.0300, M100.6796, M100.637, M600.5000, L7000.0700, M7400.3302 #### [facility] [address] [place], [address] YBBIY-6-JUWQ 0.9 g/dL Normal 0.4-1.0 [facility] Comment on above: Order Comment: Y Performed By: #### L 7000.0750, M100.0605, L7000.0300, M100.6796, M100.637, M600.5000, L7000.0700, M7400.3302 #### [facility] [address] [place], [address] BETA GLOBULIN 1.2 g/dL Normal 0.7-1.3 [facility] Comment on above: Order Comment: Y Performed By: #### L 7000.0750, M100.0605, L7000.0300, M100.6796, M100.637, M600.5000, L7000.0700, M7400.3302 #### [facility] [address] [place], [address] GAMMA GLOBULIN 1.1 g/dL Normal 0.4-1.8 [facility] Comment on above: Order Comment: Y Performed By: #### L 7000.0750, M100.0605, L7000.0300, M100.6796, M100.637, M600.5000, L7000.0700, M7400.3302 #### [facility] [address] [place], [place], [id number] Globulin (S) [Mass/Vol] 3.5 g/dL Normal 2.2-3.9 [facility] Comment on above: Order Comment: Y Performed By: #### L 7000.0750, M100.0605, L7000.0300, M100.6796, M100.637, M600.5000, L7000.0700, M7400.3302 #### [facility] [address] [place], [place], [id number] HARDIK RESULT,S Comment Normal . [facility] Comment on above: Order Comment: Y Result Comment: No m onoclonality detected. Performed By: #### L 7000.0750, M100.0605, L7000.0300, M100.6796, M100.637, M600.5000, L7000.0700, M7400.3302 #### [facility] [address] [place], [address] IMMUNOGLOB A QN 310 mg/dL Normal 87-352 [facility] Comment on above: Order Comment: Y Performed By: #### L 7000.0750, M100.0605, L7000.0300, M100.6796, M100.637, M600.5000, L7000.0700, M7400.3302 #### [facility] [address] [place], [address] IMMUNOGLOB G QN 1181 mg/dL Normal 586-1602 [facility] Comment on above: Order Comment: Y Performed By: #### L 7000.0750, M100.0605, L7000.0300, M100.6796, M100.637, M600.5000, L7000.0700, M7400.3302 #### [facility] [address] [place], [address] IMMUNOGLOB M QN 59 mg/dL Normal 26-217 [facility] Comment on above: Order Comment: Y Performed By: #### L 7000.0750, M100.0605, L7000.0300, M100.6796, M100.637, M600.5000, L7000.0700, M7400.3302 #### [facility] [address] [place], [address] M-Jake Not Observed Normal Not Observed [facility] Comment on above: Order Comment: Y Performed By: #### L 7000.0750, M100.0605, L7000.0300, M100.6796, M100.637, M600.5000, L7000.0700, M7400.3302 #### [facility] [address] [place], [address] NOTE: Comment Normal . [facility] Comment on above: Order Comment: Y Result Comment: Prot ein electrophoresis scan will follow via computer, mail, or furnace loader delivery. Performed By: #### L 7000.0750, M100.0605, L7000.0300, M100.6796, M100.637, M600.5000, L7000.0700, M7400.3302 #### [facility] [address] [place], [address] Protein [Mass/Vol] 6.8 g/dL Normal 6.0-8.5 [facility] Comment on above: Order Comment: Y Performed By: #### L 7000.0750, M100.0605, L7000.0300, M100.6796, M100.637, M600.5000, L7000.0700, M7400.3302 #### [facility] [address] [place], [place], [id number] [phone] Immunoglobulins G/A/M/Imtiaz IMMUNOGLOB E QN 22 IU/mL Normal 6-495 [facility] Comment on above: Order Comment: Y Performed By: #### L 7000.0750, M100.0605, L7000.0300, M100.6796, M100.637, M600.5000, L7000.0700, M7400.3306 #### [facility] [address] [place], [place], [address] L2100.0000on 05-16-2025 ACCA 12 units Normal 0-90 [facility] Comment on above: Result Comment: Nega tive: <80 Equivocal: 80-90 Positive: >90 Performed By: #### L 7000.0750, M100.0605, L7000.0300, M100.6796, M100.637, M600.5000, L7000.0700, M7400.3305 #### [facility] [address] [place], [place], [id number] ALCA 14 units Normal 0-60 [facility] Comment on above: Result Comment: Nega tive:<55 Equivocal: 55-60 Positive: >60 Performed By: #### L 7000.0750, M100.0605, L7000.0300, M100.6796, M100.637, M600.5000, L7000.0700, M7400.3304 #### [facility] [address] [place], [address] AMCA 50 units Normal 0-100 [facility] Comment on above: Result Comment: Nega tive: <90 Equivocal: 90-100 Positive: >100 This test was developed and its performance characteristics determined by [facility]. It has not been cleared or approved by the Food and Drug Administration. The FDA has determined that such clearance or approval is not necessary. Performed By: #### L 7000.0750, M100.0605, L7000.0300, M100.6796, M100.637, M600.5000, L7000.0700, M7400.3302 #### [facility] [address] [place], [address] Atypical pANCA Negative Normal Negative [facility] Comment on above: Performed By: #### L 7000.0750, M100.0605, L7000.0300, M100.6796, M100.637, M600.5000, L7000.0700, M7400.3302 #### [facility] [address] [place], [address] COMMENT Comment Normal . [facility] [facility] Comment on above: Result Comment: Angelica daryl is not suggestive of Inflammatory Bowel Disease Performed By: #### L 7000.0750, M100.0605, L7000.0300, M100.6796, M100.637, M600.5000, L7000.0700, M7400.3302 #### [facility] [address] [place], [place], [id number] David 22 units Normal 0-50 [facility] Comment on above: Result Comment: Nega tive: <45 Equivocal: 45-50 Positive: >50 Performed By: #### L 7000.0750, M100.0605, L7000.0300, M100.6796, M100.637, M600.5000, L7000.0700, M7400.3302 #### [facility] [address] [place], [place], [id number] Quantiferon TB-Gold+on 05-16 QFT MITOGEN MARCIA > 10.00 Normal . [facility] Comment on above: Performed By: #### L 7000.0750, M100.0605, L7000.0300, M100.6796, M100.637, M600.5000, L7000.0700, M7400.3302 #### [facility] [address] [place], [address] (438) QFT NIL VALUE 0.01 IU/mL Normal . [facility] Comment on above: Performed By: #### L 7000.0750, M100.0605, L7000.0300, M100.6796, M100.637, M600.5000, L7000.0700, M7400.3302 #### [facility] [address] [place], [address] QFT TB GOLD+ Comment Normal . [facility] Comment on above: Result Comment: Nico tiFERON-TB Gold Plus is a qualitative indirect test for M tuberculosis infection (including disease) and is intended for use in conjunction with risk assessment, radiography, and other medical and diagnostic evaluations. The QuantiFERON-TB Gold Plus result is determined by subtracting the Nil value from either TB antigen (Ag) value. The Mitogen tube serves as a control for the test. Performed By: #### L 7000.0750, M100.0605, L7000.0300, M100.6796, M100.637, M600.5000, L7000.0700, M7400.3302 #### [facility] [address] [place], [address] QFT TB POS CRIT Negative Normal Negative [facility] Comment on above: Result Comment: No r esponse to M tuberculosis antigens detected. Infection with M tuberculosis is unlikely, but high risk individuals should be considered for additional testing (ATS/IDSA/CDC Clinical Practice Guidelines, 2017). The reference range is an Antigen minus Nil result of <0.35 IU/mL. The specimen received for QuantiFERON testing was incubated by the ordering institution. Specific procedures outlined in our Directory of Services and in the package insert for the QuantiFERON Gold (In Tube) test must be followed to enable for proper stimulation of cells for the production of interferon gamma. Chemiluminescence immunoassay methodology Performed By: #### L 7000.0750, M100.0605, L7000.0300, M100.6796, M100.637, M600.5000, L7000.0700, M7400.3302 #### [facility] [address] [place], [address] (484) QFT TB1+ AG MARCIA 0.04 IU/mL Normal . [facility] Comment on above: Performed By: #### L 7000.0750, M100.0605, L7000.0300, M100.6796, M100.637, M600.5000, L7000.0700, M7400.3302 #### [facility] [address] [place], [address] QFT TB2+ AG MARCIA 0.02 IU/mL Normal . [facility] Comment on above: Performed By: #### L 7000.0750, M100.0605, L7000.0300, M100.6796, M100.637, M600.5000, L7000.0700, M7400.3302 #### [facility] [address] [place], [address] Calprotectin, Stoolon [address] 18 ug/g Normal 0-120 [facility] Comment on above: Order Comment: Test( s) 325636-Sedp, Neutral; 823916-Lkdm, Total was developed and its performance characteristics determined by [facility]. It has not been cleared or approved by the Food and Drug Administration. Result Comment: Conc entration Interpretation Follow-Up < 5 - 50 ug/g Normal None >50 -120 ug/g Borderline Re-evaluate in 4-6 weeks >120 ug/g Abnormal Repeat as clinically indicated Performed at: [facility] - [address] [id number] Program Evaluation Consultant: Angel Campos PhD, Phone: [phone] Performed at: [facility] Lab[address] [id number] Program Evaluation Consultant: Davian Gudino MD, Phone: [phone] Performed By: #### L 7000.0750, M100.0605, L7000.0300, M100.6796, M100.637, M600.5000, L7000.0700, M7400.3302 #### [facility] [address] [place], [address] Fecal Fat, Qualitativeon FATS, NEUTRAL Normal Normal . [facility] Comment on above: Order Comment: Test( s) 937240-Geim, Neutral; 384772-Xnhw, Total was developed and its performance characteristics determined by [facility]. It has not been cleared or approved by the Food and Drug Administration. Result Comment: Norm al (<60 Droplets/HPF) Performed By: #### L 7000.0750, M100.0605, L7000.0300, M100.6796, M100.637, M600.5000, L7000.0700, M7400.3302 #### [facility] [address] [place], [address] FATS, TOTAL Normal Normal . [facility] Comment on above: Order Comment: Test( s) 206246-Tmuw, Neutral; 931965-Aabz, Total was developed and its performance characteristics determined by [facility]. It has not been cleared or approved by the Food and Drug Administration. Result Comment: Norm al (<100 Droplets/HPF) Performed By: #### L 7000.0750, M100.0605, L7000.0300, M100.6796, M100.637, M600.5000, L7000.0700, M7400.3302 #### [facility] [address] [place], [address] L7000.0750on 05-13-2025 P ELASTASE,FECA > 800 Normal >200 [facility] Comment on above: Result Comment: Resu lt Units: ug Elast./g Severe Pancreatic Insufficiency: <100 Moderate Pancreatic Insufficiency: 100 - 200 Normal: >200 Performed at: [facility] [address] [id number] Program Evaluation Consultant: Davian Gudino MD, Phone: [phone] Performed By: #### L 7000.0750, M100.0605, L7000.0300, M100.6796, M100.637, M600.5000, L7000.0700, M7400.3302 #### [facility] [address] [place], [address] Colonoscopy Reporton 025 Colonoscopy Report [facility] Medical Records Department [address] [facility] [place] [address] Colonoscopy Report MR#: [id number] Acct: [id number] Name: MENDOZA JOHNSON Rep #: [id number] : 1975 49 From: Axel Castaneda DO PCP: Dr. Trent Velazquez DO Status:[place] [facility] Patient Name: Mendoza Johnson Procedure Date: 05/09/2025 7:25 AM Date of : 1975 Age: 49 Procedure: Colonoscopy Indications: Screening for colorectal malignant neoplasm Providers: Axel Castaneda DO Medicines: Monitored Anesthesia Care Patient Profile: This is a 49 year old female. Refer to note in patient chart for documentation of history and physical. Patient has symptoms of acute epigastric abdominal pain. Last Colonoscopy: more than 10 years ago. Complications: No immediate complications. Procedure: Pre-Anesthesia Assessment: - Prior to the procedure, a History and Physical was performed, and patient medications and allergies were reviewed. The patient is competent. The risks and benefits of the procedure and the sedation options and risks were discussed with the patient. All questions were answered and informed consent was obtained. Patient identification and proposed procedure were verified by the physician in the pre-procedure area. Mental Status Examination: alert and oriented. Airway Examination: normal oropharyngeal airway and neck mobility. Respiratory Examination: clear to auscultation. CV Examination: normal. Prophylactic Antibiotics: The patient does not require prophylactic antibiotics. Prior Anticoagulants: The patient has taken no anticoagulant or antiplatelet agents except for NSAID medication. ASA Grade Assessment: III - A patient with severe systemic disease. After reviewing the risks and benefits, the patient was deemed in satisfactory condition to undergo the procedure. The anesthesia plan was to use monitored anesthesia care (MAC). Immediately prior to administration of medications, the patient was re-assessed for adequacy to receive sedatives. The heart rate, respiratory rate, oxygen saturations, blood pressure, adequacy of pulmonary ventilation, and response to care were monitored throughout the procedure. The physical status of the patient was re-assessed after the procedure. After I obtained informed consent, the scope was passed under direct vision. Throughout the procedure, the patient's blood pressure, pulse, and oxygen saturations were monitored continuously. The Colonoscope was introduced through the anus and advanced to the cecum, identified by appendiceal orifice and ileocecal valve. The colonoscopy was performed without difficulty. The patient tolerated the procedure well. The quality of the bowel preparation was adequate. The ileocecal valve, appendiceal orifice, and rectum were photographed. Scope In: 7:27:28 AM Scope Withdrawal Time 0 hours 13 minutes 11 seconds Scope Out: 7:44:54 AM Total Procedure Duration Time 0 hours 17 minutes 26 seconds Findings: The perianal and digital rectal examinations were normal. A few small-mouthed diverticula were found in the recto-sigmoid colon. A 7 mm polyp was found in the rectum. The polyp was sessile. The polyp was removed with a jumbo cold forceps. Resection and retrieval were complete. Verification of patient identification for the specimen was done. Estimated blood loss was minimal. The exam was otherwise without abnormality on direct and retroflexion views. Impression: - Diverticulosis in the recto-sigmoid colon. - One 7 mm polyp in the rectum, removed with a jumbo cold forceps. Resected and retrieved. - The examination was otherwise normal on direct and retroflexion views. Recommendation: - Discharge patient to home. - Resume previous diet. - Continue present medications. - Await pathology results. - Repeat colonoscopy in 5 years for surveillance. Procedure Code(s): --- Professional --- 78713, Colonoscopy, flexible; with biopsy, single or multiple CPT copyright 2021 [employer]. All rights reserved. The codes documented in this report are preliminary and upon wooden shade hardware installer review may be revised to meet current compliance requirements. Axel Castaneda DO 05/09/2025 7:56:20 AM This report has been signed electronically. Number of Addenda: 0 Note Initiated On: 05/09/2025 7:25 AM 05/09/25 0756 Date Axel Castaneda DO Cosigner Signature: Date (if indicated) CC: Dr. Trent Velazquez DO; Axel Castaneda DO Date Dictated: 05/09/25 0725 Date Transcribed: Department Chair: LYRIC Signed Normal [facility] EGD Reporton 05-09-2025 EGD Report [facility] Medical Records Department [address] [place] [address] EGD Report MR#: [id number] Acct: [id number] Name: MENDOZA JOHNSON Rep #: [id number] : 1975 49 From: Axel Castaneda DO PCP: Dr. Trent Velazquez DO Status:[facility] Patient Name: Mendoza Johnson Procedure Date: 05/09/2025 7:11 AM Date of : 1975 Age: 49 Procedure: Upper GI endoscopy Indications: Epigastric abdominal pain, Functional Dyspepsia, Heartburn Providers: Axel Castaneda DO Medicines: Monitored Anesthesia Care Patient Profile: This is a 49 year old female. Refer to note in patient chart for documentation of history and physical. Patient has symptoms of acute epigastric abdominal pain. Complications: No immediate complications. Procedure: Pre-Anesthesia Assessment: - Prior to the procedure, a History and Physical was performed, and patient medications and allergies were reviewed. The patient is competent. The risks and benefits of the procedure and the sedation options and risks were discussed with the patient. All questions were answered and informed consent was obtained. Patient identification and proposed procedure were verified by the physician in the pre-procedure area. Mental Status Examination: alert and oriented. Airway Examination: normal oropharyngeal airway and neck mobility. Respiratory Examination: clear to auscultation. CV Examination: normal. Prophylactic Antibiotics: The patient does not require prophylactic antibiotics. Prior Anticoagulants: The patient has taken no anticoagulant or antiplatelet agents except for NSAID medication. ASA Grade Assessment: III - A patient with severe systemic disease. After reviewing the risks and benefits, the patient was deemed in satisfactory condition to undergo the procedure. The anesthesia plan was to use monitored anesthesia care (MAC). Immediately prior to administration of medications, the patient was re-assessed for adequacy to receive sedatives. The heart rate, respiratory rate, oxygen saturations, blood pressure, adequacy of pulmonary ventilation, and response to care were monitored throughout the procedure. The physical status of the patient was re-assessed after the procedure. After obtaining informed consent, the endoscope was passed under direct vision. Throughout the procedure, the patient's blood pressure, pulse, and oxygen saturations were monitored continuously. The Colonoscope was introduced through the mouth, and advanced to the fourth part of the duodenum. Small bowel enteroscopy was deemed necessary. The upper GI endoscopy was accomplished without difficulty. The patient tolerated the procedure well. Scope In: 7:19:17 AM Scope Out: 7:25:44 AM Total Procedure Duration Time 0 hours 6 minutes 27 seconds Findings: LA Grade B (one or more mucosal breaks greater than 5 mm, not extending between the tops of two mucosal folds) esophagitis with no bleeding was found 36 to 40 cm from the incisors. Biopsies were taken with a cold forceps for histology. Verification of patient identification for the specimen was done. Estimated blood loss was minimal. Patchy mildly erythematous mucosa without bleeding was found in the gastric body. Biopsies were taken with a cold forceps for histology. Biopsies were taken with a cold forceps for Helicobacter pylori testing. Verification of patient identification for the specimen was done. Estimated blood loss was minimal. Two non-bleeding cratered gastric ulcers with no stigmata of bleeding were found in the gastric antrum. The largest lesion was 6 mm in largest dimension. Biopsies were taken with a cold forceps for histology. Verification of patient identification for the specimen was done. Biopsies were taken with a cold forceps for Helicobacter pylori testing. Verification of patient identification for the specimen was done. Estimated blood loss was minimal. No gross lesions were noted in the entire examined duodenum. Biopsies were taken with a cold forceps for histology. Verification of patient identification for the specimen was done. Estimated blood loss was minimal. Impression: - LA Grade B reflux esophagitis with no bleeding. Biopsied. - Erythematous mucosa in the gastric body. Biopsied. - Non-bleeding gastric ulcers with no stigmata of bleeding. Biopsied. - No gross lesions in the entire examined duodenum. Biopsied. Recommendation: - Discharge patient to home. - Resume previous diet. - Continue present medications. - Await pathology results. - Repeat upper endoscopy in 1 year for surveillance. Procedure Code(s): --- Professional --- 29569, Small intestinal endoscopy, enteroscopy beyond second portion of duodenum, not including ileum; with biopsy, single or multiple CPT copyright 2021 [employer]. All rights reserved. Th (more content not included)... Normal [facility] Immunohistochemical Stainson 05-09-2025 Immunohistochemical Stains Patient Age/Sex Location Account Attending Physician MENDOZA JOHNSON/F EN [id number] Axel Castaneda DO Specimen: [id number] Received: 05/09/25 Status: ANGLE Lundy Num: [id number] Spec Type: EGD BIOPSY Subm Dr: Axel Castaneda DO HEADER OPERATION: Colonoscopy, EGD, biopsy PRE-OP DIAGNOSIS: Diarrhea, bloating TISSUE SUBMITTED: A- Duodenum biopsy, B- Gastric ulcer biopsy, C- Gastric body biopsy, D- Distal esophagus biopsy, E- Rectal polyp biopsy MICROSCOPIC DIAGNOSIS A. Duodenum, biopsy: - Franco gland hyperplasia. - Negative for increased intraepithelial lymphocytes. B. Gastric ulcer, biopsy: - Oxyntic mucosa with ulceration. - Negative for Helicobacter-like organisms (H E). C. Gastric body, biopsy: - Oxyntic mucosa with no specific pathologic change. - IHC negative for H pylori organisms. D. Distal esophagus, biopsy: - Squamous mucosa with reactive changes and up to 8 eosinophils per high power field. - Columnar mucosa negative for goblet cell metaplasia. E. Rectum, polyp, biopsy: - Hyperplastic polyp. MICROSCOPIC DESCRIPTION Slides are reviewed. All matched controls reacted appropriately. These tests were developed and their performance characteristics determined by [facility]. They may not have been cleared or approved by the U.S. Food and Drug Administration. The FDA has determined that such clearance or approval is not necessary. The above immunohistochemical markers are reviewed by the Pathologist. GROSS DESCRIPTION A. Received in fixative is one container labeled with the patient's name and designated Duodenum biopsy. The specimen consists of multiple irregular fragments of light chase soft tissue that in aggregate measure 0.8 x 0.5 x 0.1 cm. The specimen is totally submitted in one cassette. B. Received in fixative is one container labeled with the patient's name and designated Gastric ulcer biopsy. The specimen consists of two irregular fragments of light chase soft Patient Age/Sex Location Account Attending Physician MENDOZA JOHNSON 49/F EN [id number] Axel Castaneda DO tissue, each measuring 0.4 cm. The specimen is totally submitted in one cassette. C. Received in fixative is one container labeled with the patient's name and designated Gastric body biopsy. The specimen consists of three irregular fragments of light chase soft tissue that measure 0.1 to 0.7 cm. The specimen is totally submitted in one cassette. D. Received in fixative is one container labeled with the patient's name and designated Distal esophagus biopsy. The specimen consists of three irregular fragments of light chase soft tissue that measure 0.1 to 0.3 cm. The specimen is totally submitted in one cassette. E. Received in fixative is one container labeled with the patient's name and designated Rectal polyp biopsy. The specimen consists of one irregular fragment of light chase soft tissue that measures 0.3 cm. The specimen is totally submitted in one cassette. IA 05/09/2025 CPT:25152w1,27382 Patient Age/Sex Location Account Attending Physician MENDOZA JOHNSON 49/F EN [id number] Axel Castaneda DO Signed (signature on file) Dr. Eliane Miles MD 05/12/25 1335 Normal [facility] Comment on above: Performed By: #### L 7000.0750, M100.0605, L7000.0300, M100.6796, M100.637, M600.5000, L7000.0700, M7400.3302 #### [facility] [address] [place], [place], [id number] MR/OP.Roel 05-09-2025 MR/OP.[facility] Medical Records Department [address] [facility] [place] [id number] Provation Physician Letter MR#: [id number] Acct: [id number] Name: MENDOZA JOHNSON Rep #: [id number] : 1975 49 From: Axel Castaneda DO PCP: Dr. Trent Velazquez DO Status:[facility] 05/09/2025 Trent Velazquez DO [address] [address] Re : Colonoscopy procedure for Mendoza Johnson Dear Dr. Velazquez This procedure was performed on April. My impressions and recommendations are as follows: Impressions : - Diverticulosis in the recto-sigmoid colon. - One 7 mm polyp in the rectum, removed with a jumbo cold forceps. Resected and retrieved. - The examination was otherwise normal on direct and retroflexion views. Recommendations : - Discharge patient to home. - Resume previous diet. - Continue present medications. - Await pathology results. - Repeat colonoscopy in 5 years for surveillance. My findings are described in the full procedure note, which is enclosed. If I can be of further assistance, please feel free to contact me at . Sincerely, Axel Castaneda DO 05/09/2025 7:56:20 AM This report has been signed electronically. 05/09/25 0756 Date Axel Marquezignmarco Signature: Date (if indicated) CC: Dr. Trent Velazquez DO; Axel Castaneda DO Date Dictated: 05/09/25 0725 Date Transcribed: Department Chair: LYRIC Signed [facility] MR/OP.[facility] Medical Records Department [address] [place] [address] Provation Physician Letter MR#: [id number] Acct: [id number] Name: MENDOZA JOHNSON Rep #: [id number] : 1975 49 From: Axel Castaneda DO PCP: Dr. Trent Velazquez DO Status:REG [facility] 05/09/2025 Trent Velazquez DO [address] [address] Re : Upper GI endoscopy procedure for Mendoza Johnson Dear Dr. Velazquez This procedure was performed on April. My impressions and recommendations are as follows: Impressions : - LA Grade B reflux esophagitis with no bleeding. Biopsied. - Erythematous mucosa in the gastric body. Biopsied. - Non-bleeding gastric ulcers with no stigmata of bleeding. Biopsied. - No gross lesions in the entire examined duodenum. Biopsied. Recommendations : - Discharge patient to home. - Resume previous diet. - Continue present medications. - Await pathology results. - Repeat upper endoscopy in 1 year for surveillance. My findings are described in the full procedure note, which is enclosed. If I can be of further assistance, please feel free to contact me at . Sincerely, Axel Castaneda DO 05/09/2025 7:53:12 AM This report has been signed electronically. 05/09/25 075 Date Axel Castaneda DO Cosigner Signature: Date (if indicated) CC: Dr. Trent Velazquez DO; Axel Castaneda DO Date Dictated: 05/09/25 0711 Date Transcribed: Department Chair: LYRIC Signed [facility] MR/POSTOP.Mary Kay 05-09-2025 MR/POSTOP.[facility] Medical Records Department [address] [place] [address] Anesthesia Postop Eval I 05/09/25755 MR#: [id number] Acct: [id number] Name: MENDOZA JOHNSON Rep #: [id number] : 1975 49 From: Poli Urbina PCP: Dr. Trent Velazquez, DO Status:REG [facility] Y Race: C Location: [place] [address] Anesthesia: Postop Eval I Current Vital Signs Temperature: 97 F Pulse Rate: 76 Blood Pressure: 118/72 Respiratory Rate: 16 Pulse Ox: 98 Oxygen Delivery Method: Room Air Assessment Airway patent: Yes Spontaneous unlabored respirations: Yes Mental status: Awake and Calm nausea: No Vomiting: No Anesthesia Complication: No Fluid Hydration Crystalloid volume administer (ml): 700 Total IV fluid infused: 700 Progress Note Anesthesia document: Postop Eval 1 completed: Yes 05/09/25756 Date Poli Reyesignmarco Signature: Date CC: Signed Normal [facility] ,Urineon 05-09-2025 Beta HCG ( test) Ql (U) Negative Normal [facility] Comment on above: Result Comment: Very dilute urine specimens, as indicated by a low specific gravity, may not contain technology sales representative levels of hCG. If is still suspected, a first morning urine specimen should be collected 48 hours later and tested. Performed By: #### L 400.7600 #### [facility] [address] [place] [address]. [place], [address] Urine testOrdered By: Karri Kramer on 05-09-2025 HCG ( test) Ql (U) Negative [facility] Comment on above: Very dilute urine sp ecimens, as indicated by a low specificgravity, may not contain technology sales representative levels of hCG. If is still suspected, a first morning urinespecimen should be collected 48 hours later and tested. CDIFF (PCR)on 05-08-2025 CDIFF Pending 027 027 NAP1-B1 Presumptive Negative *for epidemiolologic???use C. Diff PCR Negative- No toxigenic C. Diff Detected Normal [facility] Comment on above: Performed By: #### L 7000.0750, M100.0605, L7000.0300, M100.6796, M100.637, M600.5000, L7000.0700, M7400.3302 #### [facility] [address] [place], [address] Calprotectin stoolOrdered By : Axel Castaneda on 05-08-2025 Calprotectin stool 18 ug/g 0-120 [facility] Comment on above: Concentration Interp retation Follow-Up< 5 - 50 ug/g Normal None>50 -120 ug/g Borderline Re-evaluate in 4-6 weeks >120 ug/g Abnormal Repeat as clinically indicatedPerformed at: - [facility] [address] [id number] Director: Angel Campos PhD, Phone: [phone] at: [facility] [address] [id number] Director: Davian Gudino MD, Phone: [phone] Clostridium difficile detect ion by polymerase chain reactionOrdered By: Axel Castaneda on 05-08-2025 C. difficile DNA NYDIA+probe Ql (Unsp spec) [facility] ENTERIC PATHOGEN PANEL STOOL on 05-08-2025 EP PANEL CAMPYLOBACTER Not Detected Norovirus Not Detected Rotavirus Not Detected Salmonella Not Detected Shiga Toxin Not Detected Shigella sp. Not Detected VIBRIO Not Detected Yersinia Not Detected Normal [facility] Comment on above: Performed By: #### L 7000.0750, M100.0605, L7000.0300, M100.6796, M100.637, M600.5000, L7000.0700, M7400.3302 #### [facility] [address] [place], [address] Fecal fat detectionOrdered B y: Axel Castaneda on 05-08-2025 Fat Ql (Stl) Normal . [facility] Comment on above: Normal (<100 Droplet s/HPF) MR/PATCastillo 05-08-2025 MR/[facility] Medical Records Department [address] [place] [address] PAT - Anesthesia 05/08/25 1012 MR#: [id number] Acct: [id number] Name: MENDOZA JOHNSON Rep #: [id number] : 1975 49 From: Karri Kramer MD PCP: Dr. Trent Velazquez, DO Status:PRE SDC Y Race: C Location: EN Pre-Assessment Diagnosis/Proposed Procedure Planned Operative Procedure(s): Colonoscopy,EGD Anesthesia History Anesthesia History - pack changer: Anesthesia History - pack changer Hx Hospitalization No 05/08/25 08:39 Any Problems With Anesthesia No 05/08/25 08:39 Cholinesterase deficiency No 05/08/25 08:39 You/Your Family Experience No 05/08/25 08:39 fever (hyperthermia) with Relationship Recent Exposure to Contagious No 06/16/16 00:51 Disease Does patient have nerve No 05/08/25 08:39 stimulator Patient instructed to have device shut off --Does patient have Pacemaker or ICD? When Was Last Pacemaker Check QUESTION #4 FULL TEXT: You/Your Family Experience fever (hyperthermia) with Anesthesia Last Oral Intake Last Oral intake: Last Oral Intake NPO since Meds taken in AM with sips of water? Meds patient instructed to take am of surgery PONV PONV - pack changer: PONV - pack changer Female Yes 05/08/25 08:39 HX of Motion Sickness No 05/08/25 08:39 HX of N/V After Surgery No 05/08/25 08:39 Non-Smoker Yes 05/08/25 08:39 Duration of Surgery greater No 05/08/25 08:39 than 60 minutes Number of Risk Factors 2 05/08/25 08:39 PONV Score Moderate Risk 05/08/25 08:39 Height Weight Height Weight: Anesthesia: Height Weight Height 5 ft 6.5 in 01/07/25 06:54 Respiratory Assessment Respiratory Assessment - pack changer: Respiratory Tract Infection Hx - pack changer Hx Respiratory Tract Infection No 05/08/25 08:39 STOP Sleep Apnea STOP Sleep Apnea - pack changer: STOP Sleep Apnea - pack changer Hx Hypertension No 05/08/25 08:39 Hx Sleep Apnea Yes 05/08/25 08:39 CPAP Yes 05/08/25 08:39 BIPAP No 05/08/25 08:39 Do you snore loudly (louder No 05/08/25 08:39 than talking or can be heard Do you often feel tired/ No 05/08/25 08:39 fatigued/ sleepy during daytime? Has anyone observed you stop No 05/08/25 08:39 breathing during sleep? STOP Results Positive 05/08/25 08:39 QUESTION #5 FULL TEXT : Do you snore loudly (louder than talking or can be heard through closed doors)? 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 Specify any problems Hx of Preganancy in last 3 No 05/08/25 08:39 Months Nurse Filling Out Transfusion VCHRISTIN 05/08/25 08:39 Questions: Date: 05/08/25 05/08/25 08:39 Time: 08:40 05/08/25 08:39 Patient unable to answer at this time (ie. confused, unrespo /Reproduction History /Reproductive History - pack changer: /Reproductive Hx- pack changer Hx Now No 05/08/25 08:39 Gestational Age (in weeks): EDC: Hx Hx Para Hx Section SAB No 05/08/25 08:39 PFSH Medical History (Updated 05/08/25 @ 08:39 by Bel Jacome) Wears contact lenses Wears glasses Anxiety Depression Alcohol use Thyroid disease Back pain Gastric reflux Non-smoker CPAP (continuous positive airway pressure) dependence Sleep apnea Arthritis IBS (irritable bowel syndrome) History of palpitations Allergic dermatitis Hypothyroidism Osteoporosis Hypertension Home Medications ???Medication ???Instructions ???Recorded ???Last Taken ???Type escitalopram oxalate 10 mg tablet 10 mg PO DAILY 04/28/23 Unknown H istory lisinopril 20 mg tablet 20 mg PO DAILY 04/28/23 Unknown Hi story Lactobacillus acidophilus 10 100 mmu cells PO DAILY 05/08/25 Un known History billion cell capsule (NewFlora) cetirizine 10 mg tablet (24Hour 10 mg PO DAILY 05/08/25 Unknown Hi story Allergy) thyroid (pork) 60 mg tablet 60 mg PO DAILY 05/08/25 Unknown Hi story ([place] Thyroid) (more content not included)... Normal [facility] No Panel InformationOrdered By: Axel Castaneda on 05-08-2025 Stool Neutral Fats Normal . [facility] Comment on above: Normal (<60 Droplets /HPF) Stool Lactoferrin/WBCon 04-26 WBCST Normal Reference Ran ge = Negative Fecal WBC Lactoferrin Negative: No Fecal WBC Lactoferrin present Normal [facility] Comment on above: Performed By: #### L 7000.0750, M100.0605, L7000.0300, M100.6796, M100.637, M600.5000, L7000.0700, M7400.3302 #### [facility] [address] [place], [place], [address] Stool lactoferrin detection by immunoassayOrdered By: Axel Castaneda on 05-08-2025 Lactoferrin IA Ql (Stl) [facility] Stool pancreatic elastase me asurement (mass/mass)Ordered By: Axel Castaneda on 05-08-2025 Elastase.pancreatic (Stl) [Mass/Mass] > 800 >200 [facility] Comment on above: Result Units: ug Sarah st./g Severe Pancreatic Insufficiency: <100 Moderate Pancreatic Insufficiency: 100 - 200 Normal: >200Performed at: - [facility] [address] [id number] Director: Davian Gudino MD, Phone: [phone] NEENA Comprehensive Panelon ANTI-DNA (DS)AB <1 Normal 0-9 [facility] Comment on above: Result Comment: Nega tive <5 Equivocal 5 - 9 Positive >9 Performed By: #### L 7000.0750, M100.0605, L7000.0300, M100.6796, M100.637, M600.5000, L7000.0700, M7400.3302 #### [facility] [address] [place], [place], [id number] [phone] ANTI-SS-A < 0.2 Normal 0.0-0.9 [facility] Comment on above: Performed By: #### L 7000.0750, M100.0605, L7000.0300, M100.6796, M100.637, M600.5000, L7000.0700, M7400.3302 #### [facility] [address] [place], [address] ANTI-SS-B < 0.2 Normal 0.0-0.9 [facility] Comment on above: Performed By: #### L 7000.0750, M100.0605, L7000.0300, M100.6796, M100.637, M600.5000, L7000.0700, M7400.3302 #### [facility] [address] [place], [address] Allergen, Food Profile 14on 05-07-2025 BEEF <0.10 Normal Class 0 [facility] Comment on above: Performed By: #### L 7000.0750, M100.0605, L7000.0300, M100.6796, M100.637, M600.5000, L7000.0700, M7400.3302 #### [facility] [address] [place], [address] CHOCOLATE <0.10 Normal Class 0 [facility] Comment on above: Performed By: #### L 7000.0750, M100.0605, L7000.0300, M100.6796, M100.637, M600.5000, L7000.0700, M7400.3302 #### [facility] [address] [place], [place], [id number] CODFISH <0.10 Normal Class 0 [facility] Comment on above: Performed By: #### L 7000.0750, M100.0605, L7000.0300, M100.6796, M100.637, M600.5000, L7000.0700, M7400.3302 #### [facility] [address] [place], [address] COMMENT Comment Normal . [facility] Comment on above: Result Comment: Kate bowen of Specific IgE Class Description of Class ----- < 0.10 0 Negative 0.10 - 0.31 0/I Equivocal/Low 0.32 - 0.55 I Low 0.56 - 1.40 II Moderate 1.41 - 3.90 III High 3.91 - 19.00 IV Very High 19.01 - 100.00 V Very High >100.00 Very High Performed By: #### L 7000.0750, M100.0605, L7000.0300, M100.6796, M100.637, M600.5000, L7000.0700, M7400.3302 #### [facility] [address] [place], [address] CORN <0.10 Normal Class 0 [facility] Comment on above: Performed By: #### L 7000.0750, M100.0605, L7000.0300, M100.6796, M100.637, M600.5000, L7000.0700, M7400.3302 #### [facility] [address] [place], [place], [id number] EGG, WHOLE <0.10 Normal Class 0 [facility] Comment on above: Result Comment: Perf ormed at: [facility] [address] [id number] Program Evaluation Consultant: Angel Campos PhD, Phone: [phone] Performed at: [facility] [address] [id number] Program Evaluation Consultant: Davian Gudino MD, Phone: [phone] Performed By: #### L 7000.0750, M100.0605, L7000.0300, M100.6796, M100.637, M600.5000, L7000.0700, M7400.3302 #### [facility] [address] [place] [address], [address] MILK (COW) 0.12 kU/L Abnormal Class 0/I [facility] Comment on above: Performed By: #### L 7000.0750, M100.0605, L7000.0300, M100.6796, M100.637, M600.5000, L7000.0700, M7400.3302 #### [facility] [place], [place], [id number] MUSSELS <0.10 Normal Class 0 [facility] Comment on above: Performed By: #### L 7000.0750, M100.0605, L7000.0300, M100.6796, M100.637, M600.5000, L7000.0700, M7400.3302 #### [facility] [address] [place], [address] PEANUT <0.10 Normal Class 0 [facility] Comment on above: Performed By: #### L 7000.0750, M100.0605, L7000.0300, M100.6796, M100.637, M600.5000, L7000.0700, M7400.3302 #### [facility] [address] [place], [address] PORK <0.10 Normal Class 0 [facility] Comment on above: Performed By: #### L 7000.0750, M100.0605, L7000.0300, M100.6796, M100.637, M600.5000, L7000.0700, M7400.3302 #### [facility] [address] [place], [address] SALMON <0.10 Normal Class 0 [facility] Comment on above: Performed By: #### L 7000.0750, M100.0605, L7000.0300, M100.6796, M100.637, M600.5000, L7000.0700, M7400.3302 #### [facility] [address] [place], [address] SHRIMP 0.16 kU/L Abnormal Class 0/I [facility] Comment on above: Performed By: #### L 7000.0750, M100.0605, L7000.0300, M100.6796, M100.637, M600.5000, L7000.0700, M7400.3302 #### [facility] [address] [place], [address] SOYBEAN <0.10 Normal Class 0 [facility] Comment on above: Performed By: #### L 7000.0750, M100.0605, L7000.0300, M100.6796, M100.637, M600.5000, L7000.0700, M7400.3302 #### [facility] [address] [place], [address] TUNA <0.10 Normal Class 0 [facility] Comment on above: Performed By: #### L 7000.0750, M100.0605, L7000.0300, M100.6796, M100.637, M600.5000, L7000.0700, M7400.3302 #### [facility] [address] [place], [place], [address] WHEAT <0.10 Normal Class 0 [facility] Comment on above: Performed By: #### L 7000.0750, M100.0605, L7000.0300, M100.6796, M100.637, M600.5000, L7000.0700, M7400.3302 #### [facility] [address] [place], [place], [id number] Absolute lymphocyte countOrd ered By: Axel Castaneda on 05-02-2025 Lymphocytes Auto (Unsp spec) [#/Vol] 1.78 10*3/uL 0.83-4.51 [facility] Absolute neutrophil countOrd ered By: Axel Castaneda on 05-02-2025 Neutrophils (Bld) [#/Vol] 5.5 10*3/uL 2.0-7.7 [facility] Anion gap in Serum or Plasma Ordered By: Axel Castaneda on 05-02-2025 Anion gap [Moles/Vol] 14 mmol/L 5-15 [facility] Automated lymphocyte count a s percentage of total leukocytesOrdered By: Axel Castaneda on 05-02-2025 Lymphocytes/100 WBC Auto (Unsp spec) 21.5 % 19-41 [facility] BUN/creatinine ratioOrdered By: Axelelina Castaneda on 05-02-2025 Urea nitrogen/Creatinine [Mass ratio] 19.7 mg/mg 10-20 [facility] Basophil percentageOrdered B y: Axel Castaneda on 05-02-2025 Basophils/100 WBC (Bld) 0.6 % 0-1 [facility] Bilirubin, totalOrdered By: Axel Castaneda on 05-02-2025 Bilirubin [Mass/Vol] 0.63 mg/dL 0.00-1.30 [facility] CBC W/Diff, Automatedon 08-0 Absolute Lymph 1.78 X10 3/uL Normal 0.83-4.51 [facility] Comment on above: Performed By: #### L 7000.0750, M100.0605, L7000.0300, M100.6796, M100.637, M600.5000, L7000.0700, M7400.3302 #### [facility] [address] [place], [address] Absolute Neut 5.5 X10 3/uL Normal 2.0-7.7 [facility] Comment on above: Performed By: #### L 7000.0750, M100.0605, L7000.0300, M100.6796, M100.637, M600.5000, L7000.0700, M7400.3302 #### [facility] [address] [place], [address] Basophils/100 WBC (Bld) 0.6 % Normal 0-1 [facility] Comment on above: Performed By: #### L 7000.0750, M100.0605, L7000.0300, M100.6796, M100.637, M600.5000, L7000.0700, M7400.3302 #### [facility] [address] [facility] [place], [address] Eosinophils/100 WBC (Bld) 3.7 % Normal 0-5 [facility] Comment on above: Performed By: #### L 7000.0750, M100.0605, L7000.0300, M100.6796, M100.637, M600.5000, L7000.0700, M7400.3302 #### [facility] [address] [place], [address] Erythrocyte distribution width (RBC) [Ratio] 12.4 % Normal 11.6-14.6 [facility] Comment on above: Performed By: #### L 7000.0750, M100.0605, L7000.0300, M100.6796, M100.637, M600.5000, L7000.0700, M7400.3302 #### [facility] [address] [place], [address] (005) Hematocrit (Bld) [Volume fraction] 39.4 % Normal 37-47 [facility] Comment on above: Performed By: #### L 7000.0750, M100.0605, L7000.0300, M100.6796, M100.637, M600.5000, L7000.0700, M7400.3302 #### [facility] [address] [place], [address] (535) Hemoglobin (Bld) [Mass/Vol] 13.0 g/dL Normal 12.0-15.0 [facility] Comment on above: Performed By: #### L 7000.0750, M100.0605, L7000.0300, M100.6796, M100.637, M600.5000, L7000.0700, M7400.3302 #### [facility] [address] [place], [address] IG% 0.500 Normal 0.0-0.9 [facility] Comment on above: Result Comment: IG% - Immature Granulocytes (promyelocytes, myelocytes and metamyelocytes) > 1% indicates that a LEFT SHIFT is Present. Performed By: #### L 7000.0750, M100.0605, L7000.0300, M100.6796, M100.637, M600.5000, L7000.0700, M7400.3302 #### [facility] [address] [place], [address] (883) Lymphocytes/100 WBC (Bld) 21.5 % Normal 19-41 [facility] Comment on above: Performed By: #### L 7000.0750, M100.0605, L7000.0300, M100.6796, M100.637, M600.5000, L7000.0700, M7400.3302 #### [facility] [address] [place], [address] MCH (RBC) [Entitic mass] 29.0 pg Normal 27.0-32.0 [facility] Comment on above: Performed By: #### L 7000.0750, M100.0605, L7000.0300, M100.6796, M100.637, M600.5000, L7000.0700, M7400.3302 #### [facility] [address] [place], [address] MCHC (RBC) [Mass/Vol] 33.0 g/dL Normal 32-36 [facility] Comment on above: Performed By: #### L 7000.0750, M100.0605, L7000.0300, M100.6796, M100.637, M600.5000, L7000.0700, M7400.3302 #### [facility] [address] [place], [address] MCV (RBC) [Entitic vol] 87.8 fL Normal 81-99 [facility] Comment on above: Performed By: #### L 7000.0750, M100.0605, L7000.0300, M100.6796, M100.637, M600.5000, L7000.0700, M7400.3302 #### [facility] [address] [place], [address] Monocytes/100 WBC (Bld) 7.2 % Normal 0-10 [facility] Comment on above: Performed By: #### L 7000.0750, M100.0605, L7000.0300, M100.6796, M100.637, M600.5000, L7000.0700, M7400.3302 #### [facility] [address] [place], [address] Neutrophils/100 WBC (Bld) 66.5 % Normal 47-70 [facility] Comment on above: Performed By: #### L 7000.0750, M100.0605, L7000.0300, M100.6796, M100.637, M600.5000, L7000.0700, M7400.3302 #### [facility] [address] [place], [address] Nucleated RBC (Bld) [#/Vol] 0 10*3/uL Normal 0-5 [facility] Comment on above: Performed By: #### L 7000.0750, M100.0605, L7000.0300, M100.6796, M100.637, M600.5000, L7000.0700, M7400.3302 #### [facility] [address] [place], [address] Platelet mean volume (Bld) [Entitic vol] 11.7 fL Normal 6.2-12.0 [facility] Comment on above: Performed By: #### L 7000.0750, M100.0605, L7000.0300, M100.6796, M100.637, M600.5000, L7000.0700, M7400.3302 #### [facility] [address] [place], [address] Platelets (Bld) [#/Vol] 277 10*3/uL Normal 150-450 [facility] Comment on above: Performed By: #### L 7000.0750, M100.0605, L7000.0300, M100.6796, M100.637, M600.5000, L7000.0700, M7400.3302 #### [facility] [address] [place], [address] RBC (Bld) [#/Vol] 4.49 10*6/uL Normal 4.2-5.4 [facility] Comment on above: Performed By: #### L 7000.0750, M100.0605, L7000.0300, M100.6796, M100.637, M600.5000, L7000.0700, M7400.3302 #### [facility] [address] [place], [address] RDW SD 39.7 fl Normal 35.1-43.9 [facility] Comment on above: Performed By: #### L 7000.0750, M100.0605, L7000.0300, M100.6796, M100.637, M600.5000, L7000.0700, M7400.3302 #### [facility] [address] [place], [place], [address] WBC (Bld) [#/Vol] 8.3 10*3/uL Normal 4.4-11.0 [facility] Comment on above: Performed By: #### L 7000.0750, M100.0605, L7000.0300, M100.6796, M100.637, M600.5000, L7000.0700, M7400.3302 #### [facility] [address] [place], [place], [id number] [phone] CRPon 05-02-2025 C-REACTIVE PROT 14.70 mg/L High 0.0-3.0 [facility] Comment on above: Performed By: #### L 7000.0750, M100.0605, L7000.0300, M100.6796, M100.637, M600.5000, L7000.0700, M7400.3302 #### [facility] [address] [facility] [address] [place], [place], [id number] Carbon dioxide, total [Moles /volume] in Central venous bloodOrdered By: Axel Castaneda on 05-02-2025 CO2 [Moles/Vol] 21.1 mmol/L 21.0-32.0 [facility] Chloride assayOrdered By: Ra johnathan Castaneda on 05-02-2025 Chloride [Moles/Vol] 104 mmol/L 98-108 [facility] Comprehensive Metabolic Prof ilon 05-02-2025 Albumin [Mass/Vol] 4.1 g/dL Normal 3.5-5.0 [facility] Comment on above: Performed By: #### L 7000.0750, M100.0605, L7000.0300, M100.6796, M100.637, M600.5000, L7000.0700, M7400.3302 #### [facility] [address] [place], [address] Albumin/Globulin [Mass ratio] 1.2 {ratio} Normal 0.9-2.4 [facility] Comment on above: Performed By: #### L 7000.0750, M100.0605, L7000.0300, M100.6796, M100.637, M600.5000, L7000.0700, M7400.3302 #### [facility] [address] [place], [address] ALK PHOS 114 U/L High 35-104 [facility] Comment on above: Performed By: #### L 7000.0750, M100.0605, L7000.0300, M100.6796, M100.637, M600.5000, L7000.0700, M7400.3302 #### [facility] [address] [place], [address] ALT [Catalytic activity/Vol] 27 U/L Normal <=34 [facility] Comment on above: Performed By: #### L 7000.0750, M100.0605, L7000.0300, M100.6796, M100.637, M600.5000, L7000.0700, M7400.3302 #### [facility] [address] [place], [address] AST [Catalytic activity/Vol] 26 U/L Normal <=31 [facility] Comment on above: Performed By: #### L 7000.0750, M100.0605, L7000.0300, M100.6796, M100.637, M600.5000, L7000.0700, M7400.3302 #### [facility] [address] [place], [address] Bilirubin [Mass/Vol] 0.63 mg/dL Normal 0.00-1.30 [facility] Comment on above: Performed By: #### L 7000.0750, M100.0605, L7000.0300, M100.6796, M100.637, M600.5000, L7000.0700, M7400.3302 #### [facility] [address] [place], [place], [id number] (089) BUN/CRE 19.7 RATIO Normal 10-20 [facility] Comment on above: Performed By: #### L 7000.0750, M100.0605, L7000.0300, M100.6796, M100.637, M600.5000, L7000.0700, M7400.3302 #### [facility] [address] [place], [address] Calcium [Mass/Vol] 9.0 mg/dL Normal 7.6-11.0 [facility] Comment on above: Performed By: #### L 7000.0750, M100.0605, L7000.0300, M100.6796, M100.637, M600.5000, L7000.0700, M7400.3302 #### [facility] Laboratory [address] [place], [address] Chloride [Moles/Vol] 104 mmol/L Normal 98-108 [facility] Comment on above: Performed By: #### L 7000.0750, M100.0605, L7000.0300, M100.6796, M100.637, M600.5000, L7000.0700, M7400.3302 #### [facility] Laboratory [address] [place], [place], [id number] (526) CO2 [Moles/Vol] 21.1 mmol/L Normal 21.0-32.0 [facility] Comment on above: Performed By: #### L 7000.0750, M100.0605, L7000.0300, M100.6796, M100.637, M600.5000, L7000.0700, M7400.3302 #### [facility] Laboratory [address] [place], [place], [id number] (949) Creatinine [Mass/Vol] 0.76 mg/dL Normal 0.70-1.20 [facility] Comment on above: Performed By: #### L 7000.0750, M100.0605, L7000.0300, M100.6796, M100.637, M600.5000, L7000.0700, M7400.3302 #### [facility] Laboratory [address] [place], [place], [id number] GAP 14 Normal 5-15 [facility] Comment on above: Performed By: #### L 7000.0750, M100.0605, L7000.0300, M100.6796, M100.637, M600.5000, L7000.0700, M7400.3302 #### [facility] Laboratory [address] [place], [place], [phone] [phone] GFR/1.73 sq M.predicted among non-blacks MDRD (S/P/Bld) [Vol rate/Area] 96 mL/min/{1.73_m2} Normal >60 [facility] Comment on above: Result Comment: mL/m in/1.73m2 CKD-EPI Creatinine Equation (2020) Performed By: #### L 7000.0750, M100.0605, L7000.0300, M100.6796, M100.637, M600.5000, L7000.0700, M7400.3302 #### [facility] Laboratory [address] [place], [address] Globulin (S) [Mass/Vol] 3.3 g/dL Normal 2.2-4.2 [facility] Comment on above: Performed By: #### L 7000.0750, M100.0605, L7000.0300, M100.6796, M100.637, M600.5000, L7000.0700, M7400.3302 #### [facility] Laboratory [address] [place], [address] Glucose [Mass/Vol] 98 mg/dL Normal 70-99 [facility] Comment on above: Performed By: #### L 7000.0750, M100.0605, L7000.0300, M100.6796, M100.637, M600.5000, L7000.0700, M7400.3302 #### [facility] Laboratory [address] [place], [address] Potassium [Moles/Vol] 4.0 mmol/L Normal 3.3-5.1 [facility] Comment on above: Performed By: #### L 7000.0750, M100.0605, L7000.0300, M100.6796, M100.637, M600.5000, L7000.0700, M7400.3302 #### [facility] Laboratory [address] [place], [address] Sodium [Moles/Vol] 139 mmol/L Normal 133-145 [facility] Comment on above: Performed By: #### L 7000.0750, M100.0605, L7000.0300, M100.6796, M100.637, M600.5000, L7000.0700, M7400.3302 #### [facility] Laboratory [address] [place], [address] T PROT 7.4 g/dL Normal 5.9-8.4 [facility] Comment on above: Performed By: #### L 7000.0750, M100.0605, L7000.0300, M100.6796, M100.637, M600.5000, L7000.0700, M7400.3302 #### [facility] Laboratory [address] [place], [address] Urea nitrogen [Mass/Vol] 15 mg/dL Normal 4-19 [facility] Comment on above: Performed By: #### L 7000.0750, M100.0605, L7000.0300, M100.6796, M100.637, M600.5000, L7000.0700, M7400.330 #### [facility] Laboratory [address] [place], [place], [id number] Eosinophil percentageOrdered By: Axel Castaneda on 05-02-2025 Eosinophils/100 WBC (Bld) 3.7 % 0-5 [facility] Erythrocyte Sed Rateon 05-02 SED RATE 28 mm/hr Normal 0-30 [facility] Comment on above: Performed By: #### L 7000.0750, M100.0605, L7000.0300, M100.6796, M100.637, M600.5000, L7000.0700, M7400.3302 #### [facility] Laboratory [address] [place], [place], [id number] Erythrocyte distribution wid th ratioOrdered By: Axel Castaneda on 05-02-2025 Erythrocyte distribution width (RBC) [Ratio] 12.4 % 11.6-14.6 [facility] Erythrocyte distribution wid th standard deviationOrdered By: Axel Castaneda on 05-02-2025 Erythrocyte distribution width (RBC) [Ratio] 39.7 fl 35.1-43.9 [facility] Erythrocyte sedimentation ra teOrdered By: Axel Castaneda on 05-02-2025 ESR (Bld) [Velocity] 28 mm/h 0-30 [facility] Ferritinon 05-02-2025 Ferritin [Mass/Vol] 103 ng/mL Normal 22-378 [facility] Comment on above: Performed By: #### L 7000.0750, M100.0605, L7000.0300, M100.6796, M100.637, M600.5000, L7000.0700, M7400.3302 #### [facility] Laboratory [address] [place], [place], [address] Free T3on 05-02-2025 Free T3 [Mass/Vol] 3.0 pg/mL Normal 2.18-3.98 [facility] Comment on above: Performed By: #### L 7000.0750, M100.0605, L7000.0300, M100.6796, M100.637, M600.5000, L7000.0700, M7400.3302 #### [facility] Laboratory [address] [place], [place], [id number] Free [id number] By: Axel whitfield on 05-02-2025 Free T3 [Mass/Vol] 3.0 pg/mL 2.18-3.98 [facility] Glomerular filtration rate ( GFR) estimation/1.73 sq m using serum, plasma, or whole bOrdered By: Axel Castaneda on 05-02-2025 GFR/1.73 sq M.predicted among non-blacks MDRD (S/P/Bld) [Vol rate/Area] 96 mL/min/{1.73_m2} >60 [facility] Comment on above: mL/min/1.73m2 CKD-EP I Creatinine Equation (2020) Hematocrit Auto (Bld) [Volum e fraction]Ordered By: Axel Castaneda on 05-02-2025 Hematocrit (Bld) [Volume fraction] 39.4 % 37-47 [facility] Hemoglobin measurementOrdere d By: Axel Castaneda on 05-02-2025 Hemoglobin (Bld) [Mass/Vol] 13.0 g/dL 12.0-15.0 [facility] Immature granulocytes/100 WB C Auto (Bld)Ordered By: Axel Castaneda on 05-02-2025 Immature granulocytes/100 WBC (Bld) 0.500 % 0.0-0.9 [facility] Comment on above: IG% - Immature Granu locytes (promyelocytes, myelocytes and metamyelocytes) > 1% indicates that a LEFT SHIFT is Present. LDHon 05-02-2025 LDH 166 U/L Normal 84-246 [facility] Comment on above: Order Comment: 1 Performed By: #### L 7000.0750, M100.0605, L7000.0300, M100.6796, M100.637, M600.5000, L7000.0700, M7400.3302 #### [facility] Laboratory [address] [place], [address] Laboratory - Chemistry and C hemistry - challengeOrdered By: Axel Castaneda on 05-02-2025 AST [Catalytic activity/Vol] 26 U/L <32 [facility] Laboratory - Miscellaneous t estsOrdered By: Axel Castaneda on 05-02-2025 Service comment (Unsp spec) [Interp] Comment . [facility] Comment on above: Levels of [...] 05-02-2025 LDH [Catalytic activity/Vol] 166 U/L 84-246 [facility] MCV (mean corpuscular volume ) determinationOrdered By: Axel Castaneda on 05-02-2025 MCV (RBC) [Entitic vol] 87.8 fL 81-99 [facility] Magnesiumon 05-02-2025 Magnesium [Mass/Vol] 2.0 mg/dL Normal 1.5-2.2 [facility] Comment on above: Performed By: #### L 7000.0750, M100.0605, L7000.0300, M100.6796, M100.637, M600.5000, L7000.0700, M7400.3302 #### [facility] Laboratory [address] [place], [address] Magnesium measurement (mass/ volume)Ordered By: Axel Castaneda on 05-02-2025 Magnesium (Unsp spec) [Mass/Vol] 2.0 mg/dL 1.5-2.2 [facility] Mean corpuscular hemoglobin (MCH) determinationOrdered By: Axel Castaneda on 05-02-2025 MCH (RBC) [Entitic mass] 29.0 pg 27.0-32.0 [facility] Mean corpuscular hemoglobin concentration (MCHC) determinationOrdered By: Axel Castaneda on 05-02-2025 MCHC (RBC) [Mass/Vol] 33.0 g/dL 32-36 [facility] Mean platelet volume determi nationOrdered By: Axel Castaneda on 05-02-2025 Platelet mean volume (Bld) [Entitic vol] 11.7 fL 6.2-12.0 [facility] Monocyte percentageOrdered B y: Axel Castaneda on 05-02-2025 Monocytes/100 WBC (Bld) 7.2 % 0-10 [facility] Neutrophil percentageOrdered By: Axel Castaneda on 05-02-2025 Neutrophils/100 WBC (Bld) 66.5 % 47-70 [facility] Nucleated red blood cell per centageOrdered By: Axel Castaneda on 05-02-2025 Nucleated RBC/100 WBC (Bld) [Ratio] 0 % 0-5 [facility] Phosphoruson 05-02-2025 Phosphate [Mass/Vol] 3.2 mg/dL Normal 2.7-4.5 [facility] Comment on above: Performed By: #### L 7000.0750, M100.0605, L7000.0300, M100.6796, M100.637, M600.5000, L7000.0700, M7400.3302 #### [facility] Laboratory [place], [address] Platelet countOrdered By: Ra johnathan Castaneda on 05-02-2025 Platelets (Bld) [#/Vol] 277 10*3/uL 150-450 [facility] Potassium measurement (mass/ volume)Ordered By: Axel Castaneda on 05-02-2025 Potassium (Unsp spec) [Mass/Vol] 4.0 mmol/L 3.3-5.1 [facility] RBC Auto (Bld) [#/Vol]Ordere d By: Axel Castaneda on 05-02-2025 RBC (Bld) [#/Vol] 4.49 10*6/uL 4.2-5.4 [facility] Serum DNA double strand anti body assay (units/volume)Ordered By: Axel Castaneda on 05-02-2025 DNA double strand Ab Qn (S) [IU]/mL 0-9 [facility] Comment on above: Negative <5 Equivoca l 5 - 9 Positive >9 Serum Scl-70 antibody assay (units/volume)Ordered By: Axel Castaneda on 05-02-2025 SCL-70 extractable nuclear Ab Qn (S) <0.2 AI 0.0-0.9 [facility] Comment on above: Previous reported re sult: TNP AIEdited by: JANICE on 05/07/25:0007 AMENDED REPORT 05/07/256 ANTISCLER previously reported as: Test not performed Serum beef IgE antibody assa y (units/volume)Ordered By: Axel Castaneda on 05-02-2025 Beef IgE Qn (S) <0.10 kU/L Class 0 [facility] Serum codfish IgE antibody a ssay (units/volume)Ordered By: Axel Castaneda on 05-02-2025 Codfish IgE Qn (S) <0.10 kU/L Class 0 [facility] Serum corn IgE antibody assa y (units/volume)Ordered By: Axel Castaneda on 05-02-2025 [place] IgE Qn (S) <0.10 kU/L Class 0 [facility] Serum cow milk IgE antibody assay (units/volume)Ordered By: Axel Castaneda on 05-02-2025 Cow milk IgE Qn (S) 0.12 kU/L High Class 0/I [facility] Serum creatinine measurement (mass/volume)Ordered By: Axel Castaneda on 05-02-2025 Creatinine [Mass/Vol] 0.76 mg/dL 0.70-1.20 [facility] Serum globulin measurementOr dered By: Axel Castaneda on 05-02-2025 Globulin (S) [Mass/Vol] 3.3 g/dL 2.2-4.2 [facility] Serum glucose measurement (m ass/volume)Ordered By: Axel Castaneda on 05-02-2025 Glucose [Mass/Vol] 98 mg/dL 70-99 [facility] Serum or plasma C reactive p rotein measurement (mass/volume)Ordered By: Axel Castaneda on 05-02-2025 CRP [Mass/Vol] 14.70 mg/L High 0.0-3.0 [facility] Serum or plasma alanine hannah otransferase (ALT) measurementOrdered By: Axel Castaneda on 05-02-2025 ALT [Catalytic activity/Vol] 27 U/L <35 [facility] Serum or plasma albumin jamil urement (mass/volume)Ordered By: Axel Castaneda on 05-02-2025 Albumin [Mass/Vol] 4.1 g/dL 3.5-5.0 [facility] Serum or plasma albumin/glob ulin mass ratioOrdered By: Axel Castaneda on 05-02-2025 Albumin/Globulin [Mass ratio] 1.2 {ratio} 0.9-2.4 [facility] Serum or plasma alkaline shoaib sphatase measurementOrdered By: Axel Castaneda on 05-02-2025 ALP [Catalytic activity/Vol] 114 U/L High 35-104 [facility] Serum or plasma calcium jamil urement (mass/volume)Ordered By: Axel Castaneda on 05-02-2025 Calcium [Mass/Vol] 9.0 mg/dL 7.6-11.0 [facility] Serum or plasma ferritin satnam surement (mass/volume)Ordered By: Axel Castaneda on 05-02-2025 Ferritin [Mass/Vol] 103 ng/mL 22-378 [facility] Serum or plasma urea nitroge n measurement (mass/volume)Ordered By: Axel Castaneda on 05-02-2025 Urea nitrogen [Mass/Vol] 15 mg/dL 4-19 [facility] Serum peanut IgE antibody as say (units/volume)Ordered By: Axel Castaneda on 05-02-2025 Peanut IgE Qn (S) <0.10 kU/L Class 0 [facility] Serum pork IgE antibody assa y (units/volume)Ordered By: Axel Castaneda on 05-02-2025 Pork IgE Qn (S) <0.10 kU/L Class 0 [facility] Serum salmon IgE antibody as say (units/volume)Ordered By: Axel Castaneda on 05-02-2025 [place] IgE Qn (S) <0.10 kU/L Class 0 [facility] Serum soybean IgE antibody a ssay (units/volume)Ordered By: Axel Castaneda on 05-02-2025 Soybean IgE Qn (S) <0.10 kU/L Class 0 [facility] Serum tuna IgE antibody assa y (units/volume)Ordered By: Axel Castaneda on 05-02-2025 Tuna IgE Qn (S) <0.10 kU/L Class 0 [facility] Serum wheat IgE antibody ass ay (units/volume)Ordered By: Axel Castaneda on 05-02-2025 [place] IgE Qn (S) <0.10 kU/L Class 0 [facility] Serum whole egg IgE antibody assay (units/volume)Ordered By: Axel Castaneda on 05-02-2025 Whole Egg IgE Qn (S) <0.10 kU/L Class 0 [facility] Comment on above: Performed at: [address] [id number] Director: Angel Campos PhD, Phone: [phone] at: BN - [facility] [id number] [place], [place] [id number] Director: Davian Gudino MD, Phone: [phone] Sodium levelOrdered By: Carrillo Burgess on 05-02-2025 Sodium [Moles/Vol] 139 mmol/L 133-145 [facility] T4 Free Directon 05-02-2025 T4 FREE DIRECT 0.80 ng/dL Normal 0.76-1.46 [facility] Comment on above: Performed By: #### L 7000.0750, M100.0605, L7000.0300, M100.6796, M100.637, M600.5000, L7000.0700, M7400.3302 #### [facility] Laboratory [address] [place], [address] T4 freeOrdered By: Axel whitfield on 05-02-2025 Free T4 [Mass/Vol] 0.80 ng/dL 0.76-1.46 [facility] TSH DL <= 0.005 mIU/L QnOrde red By: Axel Castaneda on 05-02-2025 TSH Qn 1.070 uIU/mL 0.300-4.200 [facility] Thyroid Stim Hormone (TSH)on 05-02-2025 TSH 1.070 uIU/mL Normal 0.300-4.200 [facility] Comment on above: Performed By: #### L 7000.0750, M100.0605, L7000.0300, M100.6796, M100.637, M600.5000, L7000.0700, M7400.3302 #### [facility] Laboratory [address] [place], [address] Total proteinOrdered By: Ashwin Castaneda on 05-02-2025 Protein [Mass/Vol] 7.4 g/dL 5.9-8.4 [facility] Vitamin B12on 05-02-2025 Cobalamin (Vitamin B12) [Mass/Vol] 790 pg/mL Normal 180-914 [facility] Comment on above: Performed By: #### L 7000.0750, M100.0605, L7000.0300, M100.6796, M100.637, M600.5000, L7000.0700, M7400.3302 #### [facility] Laboratory [address] [place], [address] Vitamin B12 ser/plasOrdered By: Axel Castaneda on 05-02-2025 Cobalamin (Vitamin B12) [Mass/Vol] 790 pg/mL 180-914 [facility] White blood cell (WBC) count Ordered By: Axel Castaneda on 05-02-2025 WBC (Bld) [#/Vol] 8.3 10*3/uL 4.4-11.0 [facility] Gastroenterology Visit Repor ton 04-15-2025 Gastroenterology Visit Report [facility] Gastroenterology [address] [place] [address] OFFICE VISIT Date of Service: 04/15/25 MR#: [id number] Acct: [id number] Name: MENDOZA JOHNSON Rep #: [id number] : 1975 Provider: Axel Castaneda DO Age/Sex: 49/F [place] [facility] [place] Status: Signed Intake Vital Signs 01/07/25 06:54 [...] pt in office. A paper copy of [employer] prep instructions were given to pt. Pt denies any questions or concerns at this time. [facility] Medical History (Updated 04/15/25 @ 09:00 by [...] to the office today for follow up. *[facility] established 04.15.25 pt reports with long history [...] [place]) Aller/Imm Allergy/Immunologic: No itchy eyes Syed/Lymp Hematologic/Lymphatic: No easy bleeding or easy bruising Exam [...] the pa (more content not included)... Normal [facility] Urgent Care Visit Reporton 0 01-07-2025 Urgent Care Visit Report [facility] [address] [facility], [address] [place] [address] OFFICE VISIT Date of Service: 01/07/25 MR#: [id number] Acct: [id number] Name: MENDOZA JOHNSON Izaiah Rep #: [id number] : 1975 Provider: BHUMIKA Carver Age/Sex: 49/F Location[place] [facility] [place] Status: Signed Intake Vital Signs 08/24/23 20:44 [...] noticed it was back on her abdomen. [facility] Medical History (Updated 01/07/25 @ 07:49 by [...] no acute distress Orientation: alert and awake HENMT Head: normal to inspection Ears: hearing grossly [...] of palpita (more content not included)... Normal [facility] Large Joint Arthro/Inj: R frank bacromial bursaon 03-09-2024 Da Conley DO 03/09/2024 1:14 PM Large Joint Arthro/Inj: R subacromial bursa Informed Consent Consent Obtained: Verbal Onset Protocol A moment to CARE was completed. [...] Plan of Care Visit completed when applicable [facility] Minimally Invasive Tenotomyo n 03-09-2024 Da Conley DO 03/09/2024 1:14 PM Minimally Invasive Tenotomy Informed Consent Consent Obtained: Verbal Onset Protocol A moment to CARE was completed. [...] Plan of Care Visit completed when applicable [facility] SHOULDER-INJECTION RT (PO C) YURI USE ONLYon 03-09-2024 [facility] Shoulder - righton 2023 IMPRESSION: Marked calcific tendinosis supraspinatus, corresponding to findings on radiographs. Mild subacromial/subdeltoid bursal with mild hyperemia and dynamic impingement. Department Chair: PSCB Transcribe Date/Time: Feb 23 2024 2:56P Dictated by : ENMANUEL BETANCOURT MD This examination was interpreted and the report reviewed and electronically signed by: ENMANUEL BETANCOURT MD on Feb 23 2024 4:25PM [facility] DIVISION OF RADIOLOGY * * *Final Report* * * DATE OF EXAM: Feb 23 2024 2:55PM [facility] 1132 - US SHOULDER RT / PROCEDURE [...] changes. DIVISION OF RADIOLOGY Provider, [facility] - 02/23/2024 * * *Final [...] supraspinatus, corresponding to findings on radiographs. Mild subacromial/subdeltoid bursal with mild hyperemia and dynamic impingement. Department Chair: JB Transcribe Date/Time: Feb 23 2024 2:56P Dictated by : ENMANUEL BETANCOURT MD This examination was interpreted and the report reviewed and electronically signed by: ENMANUEL BETANCOURT MD on Feb 23 2024 4:25PM EST [facility] Radiology Study observation (narrative) [facility] US Shoulder - rightOrdered B y: [facility] Provider on 02-23-2024 [facility] XR Chest PA and Lateralon IMPRESSION: No acute radiographic abnormality. Department Chair: PSCB Transcribe Date/Time: Dec 22 2023 9:32A [...] Unremarkable. DIVISION OF RADIOLOGY Provider, [facility] - 12/22/2023 * * *Final [...] Unremarkable. IMPRESSION IMPRESSION: No acute radiographic abnormality. Department Chair: PSCB Transcribe Date/Time: Dec 22 2023 9:32A Dictated by : ALISSA REYES MD This examination was interpreted and the report reviewed and electronically signed by: ALISSA REYES MD on Dec 22 2023 9:34AM EST [facility] Study observation (narrative) [facility] XR Chest PA and LateralOrder ed By: [facility] Provider on 12-22-2023 [facility] Absolute lymphocyte countOrd ered By: Griselda Stewart on 08-24-2023 Lymphocytes Auto (Unsp spec) [#/Vol] 2.93 10*3/uL 0.83-4.51 [facility] Basophil percentageOrdered B y: Griselda Stewart on 08-24-2023 Basophils/100 WBC (Bld) 0.3 % 0-1 [facility] Bilirubin [Mass/Vol] 0.30 mg/dL 0.20-1.00 [facility] Comment on above: For patients on eltr ombopag therapy, use of [facility] [place] TBIL is not recommended. Chloride [Moles/Vol] 105 mmol/L 98-107 [facility] Eosinophils/100 WBC (Bld) 1.6 % 0-5 [facility] Glucose [Mass/Vol] 97 mg/dL 74-106 [facility] Lactate [Moles/Vol] 0.6 mmol/L 0.4-2.0 [facility] Neutrophils (Bld) [#/Vol] 9.9 10*3/uL 2.0-7.7 [facility] Neutrophils/100 WBC (Bld) 69.9 % 47-70 [facility] Potassium [Moles/Vol] 3.6 mmol/L 3.5-5.1 [facility] Protein [Mass/Vol] 7.7 g/dL 6.4-8.2 [facility] Sodium [Moles/Vol] 137 mmol/L 136-145 [facility] WBC (Bld) [#/Vol] 14.2 10*3/uL 4.4-11.0 [facility] Basophil percentage 0 SEEN /hpf 0-5 [facility] Bilirubin Test strip Ql (U)O rdered By: Griselda Stewart on 08-24-2023 Bilirubin Ql (U) Negative Negative [facility] Blood erythrocytes count (nu mber/volume)Ordered By: Griselda Stewart on 08-24-2023 RBC (Bld) [#/Vol] 4.53 10*6/uL 4.2-5.4 [facility] Blood hemoglobin measurement (mass/volume)Ordered By: Griselda Stewart on 08-24-2023 Hemoglobin (Bld) [Mass/Vol] 12.8 g/dL 12.0-15.0 [facility] Blood lymphocytes/100 leukoc ytesOrdered By: [facility] on 08-24-2023 Lymphocytes/100 WBC (Bld) 20.7 % 19-41 [facility] Blood monocytes/100 leukocyt esOrdered By: Griselda Stewart on 08-24-2023 Monocytes/100 WBC (Bld) 7.0 % 0-10 [facility] Blood platelet mean volumeOr dered By: Griselda Stewart on 08-24-2023 Platelet mean volume (Bld) [Entitic vol] 11.7 fL 6.2-12.0 [facility] Determination of erythrocyte mean corpuscular volume (MCV)Ordered By: Griselda Stewart on 08-24-2023 MCV (RBC) [Entitic vol] 88.5 fL 81-99 [facility] Hematocrit Auto (Bld) [Volum e fraction]Ordered By: Griselda Stewart on 08-24-2023 Hematocrit (Bld) [Volume fraction] 40.1 % 37-47 [facility] Ketones Test strip Ql (U)Ord ered By: Griselda Stewart on 08-24-2023 Ketones Ql (U) Negative Negative [facility] Laboratory - Chemistry and C hemistry - challengeOrdered By: Griselda Stewart on 08-24-2023 ALP [Catalytic activity/Vol] 89 U/L 45-117 [facility] ALT [Catalytic activity/Vol] 28 U/L 13-56 [facility] CO2 [Moles/Vol] 28.0 mmol/L 21.0-32.0 [facility] Globulin (S) [Mass/Vol] 4.2 g/dL 2.2-4.2 [facility] Lipase [Catalytic activity/Vol] 57 U/L 13-75 [facility] Comment on above: Please note:LIPASE r evised reference range effective 23. New Lipase methodology. Expected to produce lower values than the previous assay method. NEW Reference Range: 13 - 75 U/L Urea nitrogen/Creatinine [Mass ratio] 17.4 mg/mg 10-20 [facility] Laboratory - Hematology and Cell countsOrdered By: Griselda Stewart on 08-24-2023 Erythrocyte distribution width (RBC) [Entitic vol] 41.0 fL 35.1-43.9 [facility] Erythrocyte distribution width (RBC) [Ratio] 12.7 % 11.6-14.6 [facility] Immature granulocytes/100 WBC (Bld) 0.500 % 0.0-0.9 [facility] Comment on above: IG% - Immature Granu locytes (promyelocytes, myelocytes and metamyelocytes) > 1% indicates that a LEFT SHIFT is Present. MCH (RBC) [Entitic mass] 28.3 pg 27.0-32.0 [facility] Nucleated RBC/100 WBC (Bld) [Ratio] 0 % 0-5 [facility] MCHC Auto (RBC) [Mass/Vol]Or dered By: Griselda Stewart on 08-24-2023 MCHC (RBC) [Mass/Vol] 31.9 g/dL 32-36 [facility] Mucus LM Ql (Urine sed)Order ed By: Griselda Stewart on 08-24-2023 Mucus Ql (Urine sed) RARE /hpf [facility] Nitrite Test strip Ql (U)Ord ered By: Griselda Stewart on 08-24-2023 Nitrite Ql (U) Negative Negative [facility] No Panel InformationOrdered By: Griselda Stewart on 08-24-2023 Estimated Creatinine Clearance Calc 80.51 ml/min [facility] Estimated GFR (MDRD) Amer 98 mL/min >60 [facility] Comment on above: GFR Calc Estimated GFR (MDRD) Non-Af Amer 81 mL/min >60 [facility] Comment on above: Non- GFR Calc Platelets bldOrdered By: Krsytin Stewart on 08-24-2023 Platelets (Bld) [#/Vol] 273 10*3/uL 150-450 [facility] Protein Test strip Ql (U)Ord ered By: Griselda Pat on 08-24-2023 Protein Ql (U) Negative Negative [facility] Serum or plasma albumin jamil urement (mass/volume)Ordered By: Remus Billingschalino on 08-24-2023 Albumin [Mass/Vol] 3.5 g/dL 3.2-5.0 [facility] Serum or plasma albumin/glob ulin mass ratioOrdered By: Rem Ungchalino on 08-24-2023 Albumin/Globulin [Mass ratio] 0.8 {ratio} 0.9-2.4 [facility] Serum or plasma calcium jamil urement (mass/volume)Ordered By: Rem Ungchalino on 08-24-2023 Calcium [Mass/Vol] 8.5 mg/dL 8.5-10.1 [facility] Serum or plasma creatinine m easurement (mass/volume)Ordered By: Remus Billingschalino on 08-24-2023 Creatinine [Mass/Vol] 0.80 mg/dL 0.55-1.02 [facility] Comment on above: The validity of the calculated GFR & GFRAA in patients over 70 years has not been determined. Clinical correlation is essential. Serum or plasma urea nitroge n measurement (mass/volume)Ordered By: Griselda Billingschalino on 08-24-2023 Urea nitrogen [Mass/Vol] 14 mg/dL 7-18 [facility] Squamous epithelial cells de tection in urine sediment by light microscopyOrdered By: Griselda Billingschalino on 08-24-2023 Epithelial cells.squamous LM Ql (Urine sed) 0-5 SEEN /hpf 5-10 [facility] Thin prep Papanicolaou smear with manual screeningOrdered By: Remus Manuelitochalino on 08-24-2023 Thin prep Papanicolaou smear with manual screening 20 U/L 15-37 [facility] Thin prep Papanicolaou smear with manual screening 4 5-15 [facility] Urine blood detectionOrdered By: Remus Ungchalino on 08-24-2023 RBC Ql (U) 10 /ul Negative [facility] RBC Ql (U) 0-5 SEEN /hpf 0-5 [facility] Urine clarityOrdered By: Rem us Ungchalino on 08-24-2023 Clarity (U) Sl. Cloudy Clear [facility] Urine color determinationOrd ered By: Griselda Stewart on 08-24-2023 Color (U) Yellow Yellow [facility] Urine glucose detectionOrder ed By: Griselda Stewart on 08-24-2023 Glucose Ql (U) Normal mg/dl Normal [facility] Urine leukocyte esterase det ection by dipstickOrdered By: Griselda Stewart on 08-24-2023 Leukocyte esterase Test strip Ql (U) Negative Negative [facility] Urine pHOrdered By: Griselda Martinez gur on 08-24-2023 pH (U) 5.0 [pH] 5.0 - 8.0 [facility] Urine sediment bacteria coun t by microscopy (number/high power field)Ordered By: Griselda Stewart on 08-24-2023 Bacteria LM.HPF (Urine sed) [#/Area] 1 /[HPF] None Seen [facility] Urine specific gravity measu rementOrdered By: Griselda Stewart on 08-24-2023 Specific gravity (U) [Rel density] 1.025 1.002-1.030 [facility] Urobilinogen Auto test strip Ql (U)Ordered By: Griselda Stewart on 08-24-2023 Urobilinogen Ql (U) Normal mg/dl Normal [facility] Basophil percentageOrdered B y: Bo Young on 04-28-2023 Chloride [Moles/Vol] 108 mmol/L 98-107 [facility] Glucose [Mass/Vol] 92 mg/dL 74-106 [facility] Potassium [Moles/Vol] 4.0 mmol/L 3.5-5.1 [facility] Sodium [Moles/Vol] 139 mmol/L 136-145 [facility] WBC (Bld) [#/Vol] 8.8 10*3/uL 4.4-11.0 [facility] Blood erythrocytes count (nu mber/volume)Ordered By: Bo Young on 04-28-2023 RBC (Bld) [#/Vol] 4.45 10*6/uL 4.2-5.4 [facility] Blood hemoglobin measurement (mass/volume)Ordered By: Bo Young on 04-28-2023 Hemoglobin (Bld) [Mass/Vol] 13.0 g/dL 12.0-15.0 [facility] Blood platelet mean volumeOr dered By: Bo Young on 04-28-2023 Platelet mean volume (Bld) [Entitic vol] 11.5 fL 6.2-12.0 [facility] Determination of erythrocyte mean corpuscular volume (MCV)Ordered By: Bo Young on 04-28-2023 MCV (RBC) [Entitic vol] 87.6 fL 81-99 [facility] Hematocrit Auto (Bld) [Volum e fraction]Ordered By: Bo Young on 04-28-2023 Hematocrit (Bld) [Volume fraction] 39.0 % 37-47 [facility] Laboratory - Chemistry and C hemistry - challengeOrdered By: Bovineet Young on 04-28-2023 CO2 [Moles/Vol] 24.0 mmol/L 21.0-32.0 [facility] Urea nitrogen/Creatinine [Mass ratio] 17.2 mg/mg 10-20 [facility] Laboratory - Hematology and Cell countsOrdered By: Bo Young on 04-28-2023 Erythrocyte distribution width (RBC) [Entitic vol] 39.8 fL 35.1-43.9 [facility] Erythrocyte distribution width (RBC) [Ratio] 12.5 % 11.6-14.6 [facility] MCH (RBC) [Entitic mass] 29.2 pg 27.0-32.0 [facility] MCHC Auto (RBC) [Mass/Vol]Or dered By: Bo Young on 04-28-2023 MCHC (RBC) [Mass/Vol] 33.3 g/dL 32-36 [facility] No Panel InformationOrdered By: Bo Young on 04-28-2023 Estimated Creatinine Clearance Calc 85.67 ml/min [facility] Estimated GFR (MDRD) Amer 105 mL/min >60 [facility] Comment on above: GFR Calc Estimated GFR (MDRD) Non-Af Amer 87 mL/min >60 [facility] Comment on above: Non- GFR Calc Platelets bldOrdered By: Bo Young on 04-28-2023 Platelets (Bld) [#/Vol] 256 10*3/uL 150-450 [facility] Serum or plasma calcium jamil urement (mass/volume)Ordered By: Bo Young on 04-28-2023 Calcium [Mass/Vol] 8.4 mg/dL 8.5-10.1 [facility] Serum or plasma creatinine m easurement (mass/volume)Ordered By: Bo Young on 04-28-2023 Creatinine [Mass/Vol] 0.76 mg/dL 0.55-1.02 [facility] Comment on above: The validity of the calculated GFR & GFRAA in patients over 70 years has not been determined. Clinical correlation is essential. Serum or plasma urea nitroge n measurement (mass/volume)Ordered By: Bovineet Young on 04-28-2023 Urea nitrogen [Mass/Vol] 13 mg/dL 7-18 [facility] Thin prep Papanicolaou smear with manual screeningOrdered By: Bovineet Young on 04-28-2023 Thin prep Papanicolaou smear with manual screening 7 5-15 [facility] Absolute lymphocyte countOrd ered By: Dr. Velazquez on 02-17-2023 Lymphocytes Auto (Unsp spec) [#/Vol] 1.58 10*3/uL 0.83-4.51 [facility] Basophil percentageOrdered B y: Dr. Velazquez on 02-17-2023 Basophils/100 WBC (Bld) 0.6 % 0-1 [facility] Bilirubin [Mass/Vol] 0.60 mg/dL 0.20-1.00 [facility] Comment on above: For patients on eltr ombopag therapy, use of [employer] [place] TBIL is not recommended. Chloride [Moles/Vol] 109 mmol/L 98-107 [facility] Cholesterol [Mass/Vol] 226 mg/dL <200 [facility] Comment on above: <200 mg/dL Desirable 200-240 mg/dL Borderline >240 mg/dL High Risk Eosinophils/100 WBC (Bld) 3.2 % 0-5 [facility] Glucose [Mass/Vol] 103 mg/dL 74-106 [facility] Comment on above: Fasting Glucose resu lt from 100 to 125 mg/dL suggests IMPAIRED HOMEOSTASIS per A.D.A. criteria. Neutrophils (Bld) [#/Vol] 5.8 10*3/uL 2.0-7.7 [facility] Neutrophils/100 WBC (Bld) 69.4 % 47-70 [facility] Potassium [Moles/Vol] 3.6 mmol/L 3.5-5.1 [facility] Protein [Mass/Vol] 7.7 g/dL 6.4-8.2 [facility] Sodium [Moles/Vol] 140 mmol/L 136-145 [facility] Testosterone [Mass/Vol] 9.88 ng/dL [facility] Comment on above: CENTRAL 90% REFERENC E RANGES MALE AGE <50 197.44 - 669.58 ng/dL MALE AGE > or = 50 187.72 - 684.19 ng/dL FEMALE AGE <50 8.38 - 35.01 ng/dL FEMALE AGE > or = 50 <7.00 - 35.92 ng/dL Effective as of 04/21/21 Triglyceride [Mass/Vol] 125 mg/dL <199 [facility] Comment on above: The drugs N-Acetylcy steine and Metamizole may falsely depress this assay.Serum Triglycerides Reference Interval Normal <150 mg/dL Borderline high 150 - 199 mg/dL High 200 - 499 mg/dL Very High > or = 500 mg/dL WBC (Bld) [#/Vol] 8.3 10*3/uL 4.4-11.0 [facility] Blood erythrocytes count (nu mber/volume)Ordered By: Dr. Velazquez on 02-17-2023 RBC (Bld) [#/Vol] 4.51 10*6/uL 4.2-5.4 [facility] Blood hemoglobin measurement (mass/volume)Ordered By: Dr. Velazquez on 02-17-2023 Hemoglobin (Bld) [Mass/Vol] 13.0 g/dL 12.0-15.0 [facility] Blood lymphocytes/100 leukoc ytesOrdered By: Dr. Velazquez on 02-17-2023 Lymphocytes/100 WBC (Bld) 19.0 % 19-41 [facility] Blood monocytes/100 leukocyt esOrdered By: Dr. Velazquez on 02-17-2023 Monocytes/100 WBC (Bld) 7.4 % 0-10 [facility] Blood platelet mean volumeOr dered By: Dr. Velazquez on 05-25-2023 Platelet mean volume (Bld) [Entitic vol] 11.2 fL 6.2-12.0 [facility] Determination of erythrocyte mean corpuscular volume (MCV)Ordered By: Dr. Velazquez on 02-17-2023 MCV (RBC) [Entitic vol] 90.9 fL 81-99 [facility] Hematocrit Auto (Bld) [Volum e fraction]Ordered By: Dr. Velazquez on 02-17-2023 Hematocrit (Bld) [Volume fraction] 41.0 % 37-47 [facility] Laboratory - Chemistry and C hemistry - challengeOrdered By: Dr. Velazquez on 02-17-2023 ALP [Catalytic activity/Vol] 93 U/L 45-117 [facility] ALT [Catalytic activity/Vol] 23 U/L 13-56 [facility] CO2 [Moles/Vol] 24.0 mmol/L 21.0-32.0 [facility] Cobalamin (Vitamin B12) [Mass/Vol] 412 pg/mL 211-911 [facility] Free T4 [Mass/Vol] 0.89 ng/dL 0.76-1.46 [facility] Globulin (S) [Mass/Vol] 4.2 g/dL 2.2-4.2 [facility] Urea nitrogen/Creatinine [Mass ratio] 18.2 mg/mg 10-20 [facility] Laboratory - Hematology and Cell countsOrdered By: Dr. Velazquez on 02-17-2023 Erythrocyte distribution width (RBC) [Entitic vol] 43.2 fL 35.1-43.9 [facility] Erythrocyte distribution width (RBC) [Ratio] 13.0 % 11.6-14.6 [facility] Immature granulocytes/100 WBC (Bld) 0.400 % 0.0-0.9 [facility] Comment on above: IG% - Immature Granu locytes (promyelocytes, myelocytes and metamyelocytes) > 1% indicates that a LEFT SHIFT is Present. MCH (RBC) [Entitic mass] 28.8 pg 27.0-32.0 [facility] Nucleated RBC/100 WBC (Bld) [Ratio] 0 % 0-5 [facility] MCHC Auto (RBC) [Mass/Vol]Or dered By: Dr. Velazquez on 02-17-2023 MCHC (RBC) [Mass/Vol] 31.7 g/dL 32-36 [facility] No Panel InformationOrdered By: Dr. Velazquez on 02-17-2023 Dehydroepiandrosterone Sulfate 26.6 ug/dL 41.2-243.7 [facility] Comment on above: Performed at: [employer] [address] [id number] Director: Angel Campos PhD, Phone: [phone] Estimated GFR (MDRD) Amer 96 mL/min >60 [facility] Comment on above: GFR Calc Estimated GFR (MDRD) Non-Af Amer 79 mL/min >60 [facility] Comment on above: Non- GFR Calc Follicle Stimulating Hormone 13.3 mIU/mL [facility] Comment on above: NORMAL REFERENCE RAN [facility] FEMALE FOLLICULAR 2.3 - 12.6 mIU/mL MID-CYCLE PEAK 5.2 - 17.5 mIU/mL LUTEAL 1.7 - 12.9 mIU/mL POST-MENOPAUSAL ON MHT 5.9 - 72.8 mIU/mL NOT ON MHT 12.7 - 132.2 mlU/mL MALE 0.7 - 10.8 mIU/mL Free Triiodothyronine (T3) pg/dL 2.5 pg/mL 2.18-3.98 [facility] Luteinizing Hormone 5.6 mIU/mL [facility] Comment on above: NORMAL REFERENCE RAN [facility] FEMALE FOLLICULAR 1.9 - 26.2 mIU/mL MID-CYCLE PEAK 22.8 - 76.1 mIU/mL LUTEAL 0.6 - 16.6 mIU/mL POST-MENOPAUSAL ON MHT 1.1 - 52.4 mIU/mL NOT ON MHT 8.6 - 61.8 mIU/mL MALE 1.2 - 10.6 mIU/mL Thyroid Stimulating Hormone (TSH) 1.70 uIU/mL 0.358-3.74 [facility] Vitamin D 25-Hydroxy 33.0 ng/mL [facility] Comment on above: Vitamin D 25(OH) Sta tus Range Deficiency <20 ng/mL (50nmol/L) Insufficiency 20 - 30 ng/mL (50 - 75 nmol/L) Sufficiency 30 - 100 ng/mL (75 - 250 nmol/L) Toxicity >100 ng/mL (>250 nmol/L) Platelets bldOrdered By: Dr. Velazquez on 02-17-2023 Platelets (Bld) [#/Vol] 283 10*3/uL 150-450 [facility] Serum or plasma albumin jamil urement (mass/volume)Ordered By: Dr. Velazquez on 02-17-2023 Albumin [Mass/Vol] 3.5 g/dL 3.2-5.0 [facility] Serum or plasma albumin/glob ulin mass ratioOrdered By: Dr. Velazquez on 02-17-2023 Albumin/Globulin [Mass ratio] 0.8 {ratio} 0.9-2.4 [facility] Serum or plasma calcium jamil urement (mass/volume)Ordered By: Dr. Velazquez on 02-17-2023 Calcium [Mass/Vol] 8.9 mg/dL 8.5-10.1 [facility] Serum or plasma cholesterol in HDL measurement (mass/volume)Ordered By: Dr. Velazquez on 02-17-2023 Cholesterol in HDL [Mass/Vol] 55 mg/dL >40 [facility] Comment on above: The drugs N-Acetylcy steine and Metamizole may falsely depress this assay. Reference Range HDL <40 mg/dL Low HDL Cholesterol HDL >or= 60 mg/dL High HDL Cholesterol Serum or plasma cholesterol in VLDL measurement (mass/volume)Ordered By: Dr. Velazquez on 02-17-2023 Cholesterol in VLDL [Mass/Vol] 25 mg/dL 5-40 [facility] Serum or plasma cortisol satnam surement (mass/volume)Ordered By: Dr. Velazquez on 02-17-2023 Cortisol [Mass/Vol] 24.40 ug/dL 3.44-22.45 [facility] Comment on above: Adult (AM) 5.27 - 22 .45 ug/dL Adult (PM) 3.44 - 16.76 ug/dLPlease note revised CORTISOL reference range effective 2019. Serum or plasma creatinine m easurement (mass/volume)Ordered By: Dr. Velazquez on 02-17-2023 Creatinine [Mass/Vol] 0.82 mg/dL 0.55-1.02 [facility] Comment on above: The validity of the calculated GFR & GFRAA in patients over 70 years has not been determined. Clinical correlation is essential. Serum or plasma estradiol (E 2) measurement (mass/volume)Ordered By: Dr. Velazquez on 02-17-2023 E2 [Mass/Vol] 48.1 pg/mL [facility] Comment on above: NORMAL REFERENCE [...] Cholesterol in LDL [Mass/Vol] 146 mg/dL 0-130 [facility] Serum or plasma urea nitroge n measurement (mass/volume)Ordered By: Dr. Velazquez on 02-17-2023 Urea nitrogen [Mass/Vol] 15 mg/dL 7-18 [facility] Thin prep Papanicolaou smear with manual screeningOrdered By: Dr. Velazquez on 02-17-2023 Thin prep Papanicolaou smear with manual screening 18 U/L 15-37 [facility] Thin prep Papanicolaou smear with manual screening 7 5-15 [facility] Whole blood hemoglobin A1c/t otal hemoglobin ratio (mass fraction)Ordered By: Dr. Velazquez on 02-17-2023 HbA1c (Bld) [Mass fraction] 5.3 % 3.8-5.6 [facility] Comment on above: Normal < 5.7 % Predi abetic 5.7 - 6.4 % Diabetic >or= 6.5 % Please note range changes. HCG QUAL UR B/Oon 08-05-2022 status Negative neg - pos Venessa lópez [facility] Quality Check Yes [facility] OBSOLETEon 07-12-2021 OBSOLETE Refill (RHBATH) ----- MENDOZA JOHNSON ([id number]) 1975 F Date Time Provider Department 07/12/21 ELIANE MO KEYANNA During your visit today, we recorded the following information about you: Kvng Duron MA 07/13/2021 11:48 AM Signed Pharmacy faxed requesting the following refill. Pending Prescriptions Disp Refills ERGOCALCIFEROL (VITAMIN D2) 1,250 MCG (50,000 UNIT) CAPSULE 12 capsule 3 Sig: TAKE 1 CAPSULE BY MOUTH ONE TIME A WEEK. SAMMY: Yes Patient last appointment: 06/19/2021 Next Appointment: 06/21/2022found Patient Phone numbers: [phone] (home) Request is for script(s) to be escript to pharmacy. 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 tuberculosis tuberculin stim IFN-g Ql (Bld) Negative Normal NEGAT [facility] Comment on above: Order Comment: Speci men Type: BLOOD SPECIMEN Performed By: #### 4 537-7 #### [facility] CLIA [id number] [address] [place] [address] MITOGEN MINUS NIL >10 Normal [facility] Comment on above: Order Comment: Speci men Type: BLOOD SPECIMEN Performed By: #### 4 537-7 #### [facility] CLIA [id number] [address] [place] [address] TB INTERPRETATION No evidence of curre nt or previous infection with Mycobacterium tuberculosis. Normal [facility] Comment on above: Order Comment: Speci men Type: BLOOD SPECIMEN Performed By: #### 4 537-7 #### [facility] CLIA [id number] [address] [place] [address] TB NIL 0.07 IU/mL Normal [facility] Comment on above: Order Comment: Speci men Type: BLOOD SPECIMEN Performed By: #### 4 537-7 #### [facility] CLIA [id number] [address] [place] [address] TB1 AG MINUS NIL 0.00 IU/mL Normal <0.35 [facility] Comment on above: Order Comment: Speci men Type: BLOOD SPECIMEN Performed By: #### 4 537-7 #### [facility] CLIA [id number] [address] [place] [address] TB2 AG MINUS NIL 0.00 IU/mL Normal <0.35 [facility] Comment on above: Order Comment: Speci men Type: BLOOD SPECIMEN Performed By: #### 4 537-7 #### [facility] CLIA [id number] [address] [place] [address] CBC W Auto Differential pane l (Bld)on 04-28-2021 Basophils (Bld) [#/Vol] 0.05 10*3/uL Normal <0.11 [facility] Comment on above: Order Comment: Speci men Type: BLOOD SPECIMEN Performed By: #### 4 537-7 #### [facility] CLIA [id number] [address] [place] [address] Basophils/100 WBC (Bld) 0.5 % Normal [facility] Comment on above: Order Comment: Speci men Type: BLOOD SPECIMEN Performed By: #### 4 537-7 #### [facility] CLIA [id number] [address] [place] [address] Differential cell count method Nom (Bld) Auto Normal [facility] Comment on above: Order Comment: Speci men Type: BLOOD SPECIMEN Performed By: #### 4 537-7 #### [facility] CLIA [id number] [address] [place] [address] Eosinophils (Bld) [#/Vol] 0.28 10*3/uL Normal <0.46 [facility] Comment on above: Order Comment: Speci men Type: BLOOD SPECIMEN Performed By: #### 4 537-7 #### [facility] CL[facility] [id number] [address] [place] [address] Eosinophils/100 WBC (Bld) 2.9 % Normal [facility] Comment on above: Order Comment: Speci men Type: BLOOD SPECIMEN Performed By: #### 4 537-7 #### [facility] CLIA [id number] [address] [place] [address] Erythrocyte distribution width (RBC) [Ratio] 13.2 % Normal 11.5-15.0 [facility] Comment on above: Order Comment: Speci men Type: BLOOD SPECIMEN Performed By: #### 4 537-7 #### [facility] CLIA [id number] [address] [place] [address] Hematocrit (Bld) [Volume fraction] 41.7 % Normal 36.0-46.0 [facility] Comment on above: Order Comment: Speci men Type: BLOOD SPECIMEN Performed By: #### 4 537-7 #### [facility] CLIA [id number] [address] [place] [address] Hemoglobin (Bld) [Mass/Vol] 12.9 g/dL Normal 11.5-15.5 [facility] Comment on above: Order Comment: Speci men Type: BLOOD SPECIMEN Performed By: #### 4 537-7 #### [facility] CLIA [id number] [address] [place] [address] IMMATURE GRAN % 0.5 % Normal [facility] Comment on above: Order Comment: Speci men Type: BLOOD SPECIMEN Performed By: #### 4 537-7 #### [facility] CLIA [id number] [address] [place] [address] IMMATURE GRAN ABS 0.05 k/uL Normal <0.10 [facility] Comment on above: Order Comment: Speci men Type: BLOOD SPECIMEN Performed By: #### 4 537-7 #### [facility] CLIA [id number] [address] [place] [address] Lymphocytes (Bld) [#/Vol] 2.26 10*3/uL Normal 1.00-4.00 [facility] Comment on above: Order Comment: Speci men Type: BLOOD SPECIMEN Performed By: #### 4 537-7 #### [facility] CLIA [id number] [address] [place] [address] Lymphocytes/100 WBC (Bld) 23.7 % Normal [facility] Comment on above: Order Comment: Speci men Type: BLOOD SPECIMEN Performed By: #### 4 537-7 #### [facility] CLIA [id number] [address] [place] [address] MCH (RBC) [Entitic mass] 27.8 pg Normal 26.0-34.0 [facility] Comment on above: Order Comment: Speci men Type: BLOOD SPECIMEN Performed By: #### 4 537-7 #### [facility] CLIA [id number] [address] [place] [address] MCHC (RBC) [Mass/Vol] 30.9 g/dL Normal 30.5-36.0 [facility] Comment on above: Order Comment: Speci men Type: BLOOD SPECIMEN Performed By: #### 4 537-7 #### [facility] CLIA [id number] [address] [place] [address] MCV (RBC) [Entitic vol] 89.9 fL Normal 80.0-100.0 [facility] Comment on above: Order Comment: Speci men Type: BLOOD SPECIMEN Performed By: #### 4 537-7 #### [facility] CLIA [id number] [address] [place] [address] Monocytes (Bld) [#/Vol] 0.62 10*3/uL Normal <0.87 [facility] Comment on above: Order Comment: Speci men Type: BLOOD SPECIMEN Performed By: #### 4 537-7 #### [facility] CLIA [id number] [address] [place] [address] Monocytes/100 WBC (Bld) 6.5 % Normal [facility] Comment on above: Order Comment: Speci men Type: BLOOD SPECIMEN Performed By: #### 4 537-7 #### [facility] CLIA [id number] [address] [place] [address] Neutrophils (Bld) [#/Vol] 6.26 10*3/uL Normal 1.45-7.50 [facility] Comment on above: Order Comment: Speci men Type: BLOOD SPECIMEN Performed By: #### 4 537-7 #### [facility] CLIA [id number] 1 [place] [address] Neutrophils/100 WBC (Bld) 65.9 % Normal [facility] Comment on above: Order Comment: Speci men Type: BLOOD SPECIMEN Performed By: #### 4 537-7 #### [facility] CLIA [id number] 1 [place] [address] Nucleated RBC (Bld) [#/Vol] 10*3/uL Normal <0.01 [facility] Comment on above: Order Comment: Speci men Type: BLOOD SPECIMEN Performed By: #### 4 537-7 #### [facility] CLIA [id number] 1 [place] [address] Nucleated RBC/100 WBC (Bld) [Ratio] 0.0 /100 WBC Normal 0.0 [facility] Comment on above: Order Comment: Speci men Type: BLOOD SPECIMEN Performed By: #### 4 537-7 #### [facility] CLIA [id number] 1 [place] [address] Platelet mean volume (Bld) [Entitic vol] 12.3 fL Normal 9.0-12.7 [facility] Comment on above: Order Comment: Speci men Type: BLOOD SPECIMEN Performed By: #### 4 537-7 #### [facility] CLIA [id number] 1 [place] [address] Platelets (Bld) [#/Vol] 285 10*3/uL Normal 150-400 [facility] Comment on above: Order Comment: Speci men Type: BLOOD SPECIMEN Performed By: #### 4 537-7 #### [facility] CLIA [id number] 1 [place] [address] RBC (Bld) [#/Vol] 4.64 10*6/uL Normal 3.90-5.20 [facility] Comment on above: Order Comment: Speci men Type: BLOOD SPECIMEN Performed By: #### 4 537-7 #### [facility] CLIA [id number] [address] [place] [id number] WBC (Bld) [#/Vol] 9.52 10*3/uL Normal 3.70-11.00 [facility] Comment on above: Order Comment: Speci men Type: BLOOD SPECIMEN Performed By: #### 4 537-7 #### [facility] CLIA [id number] 1 [place] [address] CCP ANTIBODY IGGon 1 Cyclic citrullinated peptide IgG Qn <15 Normal <20 [facility] Comment on above: Order Comment: Speci men Type: BLOOD SPECIMEN Result Comment: < 20 units: Negative 20-39 units: Weak Positive 40-59 units: Moderate Positive > 60 units: Strong Positive The following results were obtained with the [employer] QUANTA Lite CCP3 IgG SAMANTHA. Anti-CCP values obtained with different manufacturers' assay methods may not be used interchangeably. The magnitude of the reported IgG levels cannot be correlated to an endpoint titer. Performed By: #### V ITD #### [facility] CLIA [id number] [address] [place] [address] CK CREATINE KINASEon 021 CK [Catalytic activity/Vol] 73 U/L Normal 42-196 [facility] Comment on above: Order Comment: Speci men Type: BLOOD SPECIMEN Performed By: #### 4 537-7 #### [facility] CLIA [id number] [address] [place] [address] CNOVon 04-28-2021 CNOV Office Visit (RHBATH ) ----- MENDOZA JOHNSON ([id number]) 1975 F Date Time Provider Department 04/28/21 10:20 AM ELIANE MO During your visit today, we recorded the [...] Laterality Date - COLONOSCOP W/ OR W/O [facility] SPEC 06/07/2014 repeat 10 yrs - [...] Tobacco Us (more content not included)... Normal [facility] CRP SerPl-mCncon 04-28-2021 CRP [Mass/Vol] 1.3 mg/dL High <0.9 [facility] Comment on above: Order Comment: Speci men Type: BLOOD SPECIMEN Performed By: #### 4 537-7 #### [facility] CLIA [id number] 1 [place] [address] Comprehensive metabolic 2000 panelon 04-28-2021 Albumin [Mass/Vol] 4.5 g/dL Normal 3.9-4.9 [facility] Comment on above: Order Comment: Speci men Type: BLOOD SPECIMEN Performed By: #### 4 537-7 #### [facility] CLIA [id number] [address] [place] [address] ALP [Catalytic activity/Vol] 118 U/L Normal 34-123 [facility] Comment on above: Order Comment: Speci men Type: BLOOD SPECIMEN Performed By: #### 4 537-7 #### [facility] CLIA [id number] 1 [place] [address] ALT With P-5'-P [Catalytic activity/Vol] 17 U/L Normal 7-38 [facility] Comment on above: Order Comment: Speci men Type: BLOOD SPECIMEN Performed By: #### 4 537-7 #### [facility] CLIA [id number] 1 [place] [address] Anion gap [Moles/Vol] 12 mmol/L Normal 9-18 [facility] Comment on above: Order Comment: Speci men Type: BLOOD SPECIMEN Performed By: #### 4 537-7 #### [facility] CLIA [id number] [address] [place] [address] AST With P-5'-P [Catalytic activity/Vol] 27 U/L Normal 13-35 [facility] Comment on above: Order Comment: Speci men Type: BLOOD SPECIMEN Performed By: #### 4 537-7 #### [facility] CLIA [id number] 1 [place] [address] Bilirubin [Mass/Vol] 0.5 mg/dL Normal 0.2-1.3 [facility] Comment on above: Order Comment: Speci men Type: BLOOD SPECIMEN Performed By: #### 4 537-7 #### [facility] CLIA [id number] 1 [place] [address] Calcium [Mass/Vol] 9.5 mg/dL Normal 8.5-10.2 [facility] Comment on above: Order Comment: Speci men Type: BLOOD SPECIMEN Performed By: #### 4 537-7 #### [facility] CLIA [id number] 1 [place] [address] Chloride [Moles/Vol] 101 mmol/L Normal 97-105 [facility] Comment on above: Order Comment: Speci men Type: BLOOD SPECIMEN Performed By: #### 4 537-7 #### [facility] CLIA [id number] 1 [place] [address] CO2 [Moles/Vol] 26 mmol/L Normal 22-30 [facility] Comment on above: Order Comment: Speci men Type: BLOOD SPECIMEN Performed By: #### 4 537-7 #### [facility] CLIA [id number] [address] [place] [address] Creatinine [Mass/Vol] 0.73 mg/dL Normal 0.58-0.96 [facility] Comment on above: Order Comment: Speci men Type: BLOOD SPECIMEN Performed By: #### 4 537-7 #### [facility] CLIA [id number] 1 [place] [address] GFR/1.73 sq M.predicted MDRD (S/P/Bld) [Vol rate/Area] mL/min/{1.73_m2} Normal [facility] Comment on above: Order Comment: [...] GFR. Performed By: #### 4 537-7 #### [facility] CLIA [id number] 1 [place] [address] Glucose [Mass/Vol] 90 mg/dL Normal 74-99 [facility] Comment on above: Order Comment: Speci men Type: BLOOD SPECIMEN Result Comment: The [place] Diabetes Association (ADA) provides guidance for cutoff [...] Standards of Medical Care in Diabetes 2016, [place] [employer]. Diabetes Care. 2016.39(Suppl 1). Performed By: #### 4 537-7 #### [facility] CLIA [id number] 1 [place] [address] Potassium [Moles/Vol] 4.2 mmol/L Normal 3.7-5.1 [facility] Comment on above: Order Comment: Speci men Type: BLOOD SPECIMEN Performed By: #### 4 537-7 #### [facility] CLIA [id number] [address] [place] [address] Protein [Mass/Vol] 7.6 g/dL Normal 6.3-8.0 [facility] Comment on above: Order Comment: Speci men Type: BLOOD SPECIMEN Performed By: #### 4 537-7 #### [facility] CLIA [id number] 1 [place] [address] Sodium [Moles/Vol] 139 mmol/L Normal 136-144 [facility] Comment on above: Order Comment: Speci men Type: BLOOD SPECIMEN Performed By: #### 4 537-7 #### [facility] CLIA [id number] [address] [place] [id number] Urea nitrogen [Mass/Vol] 13 mg/dL Normal 7-21 [facility] Comment on above: Order Comment: Speci men Type: BLOOD SPECIMEN Performed By: #### 4 537-7 #### [facility] CLIA [id number] 1 [place] [address] ESR Westergren method (Bld) [Velocity]on 04-28-2021 ESR (Bld) [Velocity] 21 mm/h High 0-20 [facility] Comment on above: Order Comment: Speci men Type: BLOOD SPECIMEN Performed By: #### 4 537-7 #### [facility] CLIA [id number] [address] [place] [address] FERRITIN BLDon 04-28-2021 Ferritin [Mass/Vol] 38.1 ng/mL Normal 14.7-205.1 [facility] Comment on above: Order Comment: Speci men Type: BLOOD SPECIMEN Performed By: #### F ERR #### [facility] CLIA [id number] [address] [place] [address] HBV surface Ab IA Ql (S)on 0 04-28-2021 HBV surface Ag Ql (S) Negative Normal Negative [facility] Comment on above: Order Comment: Speci men Type: BLOOD SPECIMEN Performed By: #### 4 537-7 #### [facility] CLIA [id number] [address] [place] [address] HBV surface Ab Ser-aCncon HBV surface Ab Qn (S) <3.10 Normal <10.00 [facility] Comment on above: Order Comment: Speci men Type: BLOOD SPECIMEN Result Comment: Isis ent is considered not to have protective immunity to HBV infection. Performed By: #### V ITD #### [facility] CLIA [id number] [address] [place] [address] HCV Ab Ser Qlon 04-28-2021 HCV Ab Ql (S) Negative Normal Negative [facility] Comment on above: Order Comment: Speci men Type: BLOOD SPECIMEN Performed By: #### 4 537-7 #### [facility] CLIA [id number] 1 [place] [address] HEP B CORE AB TOTALon 2020 HBV core Ab Ql (S) Negative Normal NEGAT [facility] Comment on above: Order Comment: Speci men Type: BLOOD SPECIMEN Performed By: #### V ITD #### [facility] CLIA [id number] 1 [place] [address] HLA-B27 PCRon 04-28-2021 HLA-B27 DNA RESULT Negative Normal [facility] Comment on above: Order Comment: [...] developed and its performance characteristics determined by [employer]. The test has not been cleared or approved by the [place] FDA. However, FDA approval was not necessary since this lab is certified under CLIA for high complexity testing. Test performed by: [facility], [address], [place] [id number] CLIA [id number] Performed By: #### B 27PCR #### [facility] CLIA [id number] [address] [place] [id number] [address] [place] IRON + TIBCon 04-28-2021 Iron [Mass/Vol] 69 ug/dL Normal 41-186 [facility] Comment on above: Order Comment: Speci men Type: BLOOD SPECIMEN Performed By: #### 4 537-7 #### [facility] CLIA [id number] [address] [place] [address] Iron binding capacity [Mass/Vol] 358 ug/dL Normal 232-386 [facility] Comment on above: Order Comment: Speci men Type: BLOOD SPECIMEN Performed By: #### 4 537-7 #### [facility] CLIA [id number] 1 [place] [address] Iron saturation [Mass fraction] 19 % Normal 15-57 [facility] Comment on above: Order Comment: Speci men Type: BLOOD SPECIMEN Performed By: #### 4 537-7 #### [facility] CLIA [id number] [address] [place] [address] RHEUMATOID FACTOR BLon 04-28 Rheumatoid factor Qn [IU]/mL Normal <16 [facility] Comment on above: Order Comment: Speci men Type: BLOOD SPECIMEN Performed By: #### V ITD #### [facility] CLIA [id number] [address] [place] [address] UA WITH CULTURE IF INDICATED on 04-28-2021 [...] during collection. Recollect if clinically indicated. Abnormal [facility] Comment on above: Order Comment: Speci men Type: BLOOD SPECIMEN Performed By: #### V ITD #### [facility] CLIA [id number] 1 [place] [address] VITAMIN D 25 HYDROXYon 04-28 25-hydroxyvitamin D3 [Mass/Vol] 25.1 ng/mL Low 30.0-100.0 [facility] Comment on above: Order Comment: Speci men Type: BLOOD SPECIMEN Result Comment: Clas sification of 25 [place] Vitamin D status: Deficiency: < 20 ng/ml. Insufficientcy: 20-30 ng/ml. Sufficiency: 30-100 ng/ml. Performed By: #### V ITD #### [facility] CLIA [id number] 1 [place] [address] XR FOOT 3V AP/LAT/OBL LTon 0 04-28-2021 [...] Bilateral calcaneal enthesopathy. Otherwise negative bilateral feet. Department Chair: [facility] Transcribe Date/Time: Apr 28 2021 4:08P Dictated by : LELAND HANEY MD This examination was interpreted and the report reviewed and electronically signed by: LELAND HANEY MD on Apr 28 2021 4:12PM EST [id number] Normal [facility] XR FOOT 3V AP/LAT/OBL RTon [...] Bilateral calcaneal enthesopathy. Otherwise negative bilateral feet. 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 Department Chair: [facility] Transcribe Date/Time: Apr 28 2021 4:03P Dictated by : LELAND HANEY MD This examination was interpreted and the report reviewed and electronically signed by: LELAND HANEY MD on Apr 28 2021 4:07PM EST [id number] Normal [facility] XR LUMBAR 2V AP/LATon 2020 [...] joints. RESULT: Lumbar spine: There are five xgp-zyx-enimhvv lumbar vertebra. No fracture or subluxations are [...] acute abnormality. Sacroiliac joints: Within normal limits. Department Chair: JB Transcribe Date/Time: Apr 29 2021 1:32P Dictated by : LELAND HANEY MD This examination was interpreted and the report reviewed and electronically signed by: LELAND HANEY MD on Apr 29 2021 1:40PM EST [id number] Normal [facility] XR SI JTS 2V AP [...] joints. RESULT: Lumbar spine: There are five qvh-mmu-sozdyzr lumbar vertebra. No fracture or subluxations are [...] acute abnormality. Sacroiliac joints: Within normal limits. Department Chair: [employer] Transcribe Date/Time: Apr 29 2021 1:32P Dictated by : ELLAND HANEY MD This examination was interpreted and the report reviewed and electronically signed by: LELAND HANEY MD on Apr 29 2021 1:40PM EST [id number] Normal [facility] XR Lumbar spine 3 Viewson IMPRESSION: DEGENERATIVE CHANGE DESCRIBED Department Chair: JB Transcribe Date/Time: Nov 22 2020 11:44A [...] joints appear unremarkable DIVISION OF RADIOLOGY Provider, [facility] - 11/22/2020 * * *Final [...] appear unremarkable IMPRESSION IMPRESSION: DEGENERATIVE CHANGE DESCRIBED Department Chair: JB Transcribe Date/Time: Nov 22 2020 11:44A Dictated by : JESUS ADAMES MD This examination was interpreted and the report reviewed and electronically signed by: JESUS ADAMES MD on Nov 22 2020 11:46AM EST [facility] Radiology Study observation (narrative) Venessa lópez [facility] XR Lumbar spine 3 ViewsOrder ed By: [facility] Provider on 11-22-2020 [facility] Vital Signs Date Time Vital Sign Value Performing Clinician Facility 05-09-2025 08:15-0400 Body temperature 96.9 [degF] Dr. Trent Velazquez DO Work Phone: [facility] 05-09-2025 08:15-0400 Diastolic blood pressure 75 mm[Hg] Dr. Trent Velazquez DO Work Phone: [facility] 05-09-2025 08:15-0400 Heart rate 60 /min Dr. Trent Velazquez DO Work Phone: [facility] 05-09-2025 08:15-0400 Respiratory rate 16 /min Dr. Ternt Velazquez DO Work Phone: [facility] 05-09-2025 08:15-0400 SaO2% (BldA) [Mass fraction] 98 % Dr. Trent Velazquez DO Work Phone: [facility] 05-09-2025 08:15-0400 Systolic blood pressure 115 mm[Hg] Dr. Trent Velazquez DO Work Phone: [facility] 05-09-2025 06:35-0400 Body height 167.[address] Trent Velazquez DO Work Phone: [facility] 05-09-2025 06:35-0400 Body mass index (BMI) [Ratio] 36.6 kg/m2 Dr. Trent Velazquez DO Work Phone: [facility] 05-09-2025 06:35-0400 Body weight 103.[address] Trent Velazquez DO Work Phone: [facility] 01-07-2025 06:54-0400 Body height 168.[address] Trent Velazquez DO Work Phone: [facility] 01-07-2025 06:54-0400 Body mass index (BMI) [Ratio] 36.6 kg/m2 Dr. Trent Velazquez DO Work Phone: [facility] 01-07-2025 06:54-0400 Body temperature 98.2 [degF] Dr. Trent Velzaquez DO Work Phone: [facility] 01-07-2025 06:54-0400 Body weight 104.[address] Trent Velazquez DO Work Phone: [facility] 01-07-2025 06:54-0400 Diastolic blood pressure 80 mm[Hg] Dr. Trent Velazquez DO Work Phone: [facility] 01-07-2025 06:54-0400 Heart rate 72 /min Dr. Trent Velazquez DO Work Phone: [facility] 01-07-2025 06:54-0400 SaO2% (BldA) [Mass fraction] 97 % Dr. Trent Velazquez DO Work Phone: [facility] 01-07-2025 06:54-0400 Systolic blood pressure 120 mm[Hg] Dr. Trent Velazquez DO Work Phone: [facility] 02-08-2024 10:42-0400 Body height 167.6 cm Benjamin Patel MD Work Phone: [facility] 02-08-2024 10:42-0400 Body mass index (BMI) [Ratio] 34.86 kg/m2 Benjamin Patel MD Work Phone: [facility] 02-08-2024 10:42-0400 Body weight 97.98 kg Benjamin Patel MD Work Phone: [facility] 08-24-2023 23:09-0500 Diastolic blood pressure 90 mm[Hg] [facility] 08-24-2023 23:09-0500 Heart rate 78 /min [facility] 08-24-2023 23:09-0500 Respiratory rate 16 /min [facility] 08-24-2023 23:09-0500 SaO2% (BldA) [Mass fraction] 98 % [facility] 08-24-2023 23:09-0500 Systolic blood pressure 145 mm[Hg] [facility] 08-24-2023 20:44-0500 Body height 167.64 cm [facility] 08-24-2023 20:44-0500 Body mass index (BMI) [Ratio] 36.6 kg/m2 [facility] 08-24-2023 20:44-0500 Body temperature 98.6 [degF] [facility] 08-24-2023 20:44-0500 Body weight 102.96 kg [facility] 04-28-2023 09:23-0400 Diastolic blood pressure 98 mm[Hg] [facility] 04-28-2023 09:23-0400 Heart rate 72 /min [facility] 04-28-2023 09:23-0400 Respiratory rate 14 /min [facility] 04-28-2023 09:23-0400 SaO2% (BldA) [Mass fraction] 97 % [facility] 04-28-2023 09:23-0400 Systolic blood pressure 138 mm[Hg] [facility] 04-28-2023 06:39-0400 Body height 167.64 cm [facility] 04-28-2023 06:39-0400 Body mass index (BMI) [Ratio] 35.6 kg/m2 [facility] 04-28-2023 06:39-0400 Body temperature 97.8 [degF] [facility] 04-28-2023 06:39-0400 Body weight 100.24 kg [facility] 01-27-2023 17:16-0400 Body weight 99.34 kg Dania Church APRN.[employer] ASSISTANT Work Phone: [facility] 01-27-2023 17:16-0400 Diastolic blood pressure 76 mm[Hg] Dania Church APRN.[employer]ER ASSISTANT Work Phone: [facility] 01-27-2023 17:16-0400 Heart rate 84 /min Dania Church DIAMOND GRINDER.[employer]ER ASSISTANT Work Phone: [facility] 01-27-2023 17:16-0400 Respiratory rate 14 /min Dania Church DIAMOND GRINDER.[employer]ER ASSISTANT Work Phone: [facility] 01-27-2023 17:16-0400 Systolic blood pressure 122 mm[Hg] Dania Church DIAMOND GRINDER[employer]ER ASSISTANT Work Phone: [facility] 09-09-2022 14:30-0500 Body weight 94.8 kg Lucina Wang APRN.[employer] PLAYER ASSISTANT Work Phone: [facility] 09-09-2022 14:30-0500 Diastolic blood pressure 78 mm[Hg] Lucina Wang APRN.[employer] PLAYER ASSISTANT Work Phone: [facility] 09-09-2022 14:30-0500 Systolic blood pressure 126 mm[Hg] Lucina Wang APRN.[employer] PLAYER ASSISTANT Work Phone: [facility] 08-25-2022 13:02-0500 Diastolic blood pressure 87 mm[Hg] Cyn Berry PA-C Work Phone: [facility] 08-25-2022 13:02-0500 Heart rate 65 /min Cyn Berry PA-C Work Phone: [facility] 08-25-2022 13:02-0500 Systolic blood pressure 131 mm[Hg] Cyn Berry PA-C Work Phone: [facility] 08-25-2022 12:33-0500 Body temperature 97.7 [degF] Cyn Berry PA-C Work Phone: [facility] 08-25-2022 12:33-0500 Body weight 95.71 kg Cyn Berry PA-C Work Phone: [facility] 08-25-2022 12:33-0500 Respiratory rate 18 /min Cyn Berry PA-C Work Phone: [facility] 08-07-2022 12:01-0500 Body temperature 97.59 [degF] Bev Praisler-Wood DIAMOND GRINDER.[employer]ER ASSISTANT Work Phone: [facility] 08-07-2022 12:01-0500 Body weight 94.8 kg Bev Praisler-Wood DIAMOND GRINDER.[employer]ER ASSISTANT Work Phone: [facility] 08-07-2022 12:01-0500 Diastolic blood pressure 84 mm[Hg] Bev Praisler-Wood DIAMOND GR[employer]ER.[employer]ER ASSISTANT Work Phone: [facility] 08-07-2022 12:01-0500 Heart rate 70 /min Bev Praisler-Wood DIAMOND GRINDER.[employer] PLAYER ASSISTANT Work Phone: [facility] 08-07-2022 12:01-0500 Respiratory rate 18 /min Bev Praisler-Wood DIAMOND GR[employer]ER.[employer] PLAYER ASSISTANT Work Phone: [facility] 08-07-2022 12:01-0500 SaO2% (BldA) [Mass fraction] 99 % Bev Praisler-Wood DIAMOND GRINDER.[employer] PLAYER ASSISTANT Work Phone: [facility] 08-07-2022 12:01-0500 Systolic blood pressure 130 mm[Hg] Bev Praisler-Wood DIAMOND GR[employer]ER.[employer]ER ASSISTANT Work Phone: [facility] 08-05-2022 09:03-0500 Body weight 94.98 kg Lucina Wang DIAMOND GR[employer]ER.[employer]ER ASSISTANT Work Phone: [facility] 08-05-2022 09:03-0500 Diastolic blood pressure 82 mm[Hg] Lucina Wang DIAMOND GR[employer]ER[employer]ER ASSISTANT Work Phone: [facility] 08-05-2022 09:03-0500 Heart rate 85 /min Lucina Wang DIAMOND GR[employer]ER.[employer]ER ASSISTANT Work Phone: [facility] 08-05-2022 09:03-0500 SaO2% (BldA) [Mass fraction] 98 % Lucina Wang [employer]OND GR[employer]ER[employer]ER ASSISTANT Work Phone: [facility] 08-05-2022 09:03-0500 Systolic blood pressure 124 mm[Hg] Lucina aWng APRN.[employer]ER ASSISTANT Work Phone: [facility] 07-27-2022 14:07-0400 Body height 168 cm Cyn BAI-C Work Phone: [facility] 07-27-2022 14:07-0400 Body temperature 98.1 [degF] Cyn Berry PA-C Work Phone: [facility] 07-27-2022 14:07-0400 Body weight 94.8 kg Cyn BAI-C Work Phone: [facility] 07-27-2022 14:07-0400 Diastolic blood pressure 90 mm[Hg] Cyn Berry PA-C Work Phone: [facility] 07-27-2022 14:07-0400 Heart rate 72 /min Cyn Berry PA-C Work Phone: [facility] 07-27-2022 14:07-0400 Respiratory rate 18 /min Cyn Berry PA-C Work Phone: [facility] 07-27-2022 14:07-0400 Systolic blood pressure 130 mm[Hg] Cyn Beryr PA-C Work Phone: [facility] 04-20-2022 16:00-0400 Body height 167.6 cm Lucina Wang APRN.[employer] PLAYER ASSISTANT Work Phone: [facility] 04-20-2022 16:00-0400 Body weight 95.71 kg Lucina Wang APRN.[employer] PLAYER ASSISTANT Work Phone: [facility] 04-20-2022 16:00-0400 Diastolic blood pressure 98 mm[Hg] Lucina Wang APRN.[employer] PLAYER ASSISTANT Work Phone: [facility] 04-20-2022 16:00-0400 Systolic blood pressure 140 mm[Hg] Lucina Wang APRN.[employer] PLAYER ASSISTANT Work Phone: [facility] Encounters Encounter Date Encounter Type Care Provider Facility Start: 06-21-2025 ambulatory [facility] Facility:[facility] Start: 06-11-2025 End: 06-11-2025 ambulatory TRENT Martínez LABOR Facility:[facility] Start: 06-05-2025 Encounter for other preprocedural examination Axel Castaneda [facility] Start: 05-09-2025 Non-patient / Non-visit Axelelina Culp nd, DO -[facility] Start: 05-09-2025 End: 05-09-2025 Admission to same day surgery center Axel Castaneda DO -Endoscopy Work Phone: Start: 05-09-2025 End: 05-09-[address] Trent Velazquez DO Work Phone: -Endoscopy Start: 05-08-2025 End: 05-08-[address] Trent Velazquez DO Work Phone: -Laboratory Specimen Start: 05-08-2025 End: 05-08-2025 Patient encounter procedure Axel Castaneda DO -Laboratory Specimen Work Phone: Start: 05-08-2025 End: 05-08-2025 ambulatory Trent Velazquez Facility:[facility] Start: 05-02-2025 End: 05-02-[address] Trent Velazquez DO Work Phone: -Laboratory Start: 05-02-2025 End: 05-02-2025 Patient encounter procedure Axel Leonel DECKER -Laboratory Work Phone: Start: 05-02-2025 End: 05-02-2025 ambulatory Trent Velazquez Facility:[facility] Start: 04-15-2025 End: 04-15-2025 Patient encounter procedure Axelsancho Castanead DO -[facility] Work Phone: Start: 04-15-2025 End: 04-15-[address] Trent Velazquez DO Work Phone: -[facility] Start: 01-07-2025 End: 01-07-2025 Patient encounter procedure Rojelio BAI -[facility] Work Phone: Start: 01-07-2025 End: 01-07-2025 ambulatory Rojelio BAI Facility[place] Start: 12-06-2024 ambulatory Health Risk Assessment Facility:[facility] Start: 08-02-2024 End: 08-02-2024 ambulatory Trent Labor Facility:[facility] Start: 07-19-2024 ambulatory Trent Labor Facility:[facility] Start: 06-14-2024 End: 06-14-2024 ambulatory Eliz O'Honorio PT [facility] Comment on above: Calcific tendinitis of right shoulder (Primary Dx) Start: 06-01-2024 End: 06-01-2024 ambulatory Farrah Kashuba TOOL AND DIE MAKER/DESIGNER Work Phone: [facility] [...] Start: 05-08-2024 End: 05-08-2024 ambulatory Farrah Kashuba TOOL AND DIE MAKER/DESIGNER Work Phone: [facility] Comment on above: Calcific tendinitis of right shoulder (Primary Dx) Start: 05-01-2024 End: 05-01-2024 ambulatory Farrah Kashuba TOOL AND DIE MAKER/DESIGNER Work Phone: [facility] Comment on above: Calcific tendinitis of right shoulder (Primary Dx) Start: 04-10-2024 End: 04-10-2024 ambulatory Farrah Kashuba TOOL AND DIE MAKER/DESIGNER Work Phone: [facility] Comment on above: Calcific tendinitis of right shoulder (Primary Dx) Start: 04-04-2024 End: 04-04-2024 ambulatory Albino Palafox PT, DPT [facility] Comment on above: Calcific tendinitis of right shoulder (Primary Dx) Start: 03-27-2024 End: 03-27-2024 ambulatory Eliz O'Honorio PT [facility] Comment on above: Calcific tendinitis of right shoulder (Primary Dx) Start: 03-09-2024 End: 03-09-2024 Patient encounter procedure Da D Conley DO Work Phone: Orthopaedics Comment on above: Calcific tendinitis of right shoulder (Primary Dx) Start: 02-28-2024 ambulatory Da D Conley DO Work Phone: Orthopaedics Comment on above: RX Start: 02-23-2024 End: 02-23-2024 Subsequent hospital visit by physician Us Naqvi A21 7 Work Phone: Radiology Comment on above: Calcific tendonitis [M65.20] Start: 02-22-2024 Telephone encounter Da Bai tel DO Work Phone: Orthopaedics Comment on above: Medication Question Start: 02-22-2024 End: 02-22-2024 Patient encounter procedure Da D Conley DO Work Phone: Orthopaedics Comment on above: Calcific tendinitis of right shoulder (Primary Dx) Start: 02-08-2024 Telephone encounter [facility] Provider Allegra vazquez Comment on above: Appointment with Dr. Conley or Dr. Fregoso Appointment Start: 02-08-2024 End: 02-08-2024 Patient encounter procedure Benjamin Patel MD Work Phone: Orthopaedics Comment on above: Calcific tendonitis (Primary Dx) Start: 02-08-2024 End: 02-08-2024 Subsequent hospital visit by physician Xr [facility] Radiology Comment on above: Pain [R52] Start: 02-06-2024 Orders Only Benjamin marie MD Work Phone: [facility] Comment on above: Pain (Primary Dx) Start: 12-22-2023 End: 12-22-2023 Subsequent hospital visit by physician Errol [facility] Work Phone: Radiology Comment on above: Acute cough [R05.1] Start: 08-24-2023 End: 08-24-2023 Emergency department patient visit [facility]-Emergency Department Work Phone: Start: 05-25-2023 ambulatory Yang bravo MD Work Phone: Internal Medicine [facility] [place] Start: 04-28-2023 End: 04-28-2023 Emergency department patient visit [facility]-Emergency Department Work Phone: Start: 03-10-2023 Refill Yang bravo MD Work Phone: [facility] Comment on above: Refill Request Start: 02-17-2023 End: 02-17-2023 ambulatory [facility] Work Phone: Start: 02-17-2023 End: 02-17-2023 Patient encounter procedure [facility]-Laboratory Start: 01-27-2023 End: 01-27-2023 Patient encounter procedure Dania Church APRN.GOLF PLAYER ASSISTANT Work Phone: [facility] Comment on above: Parotitis, acute (Pr imary Dx) Start: 10-18-2022 ambulatory Eliane horn MD Work Phone: [facility]ology [facility] Comment on above: RX For Monthly Massa ge Start: 09-09-2022 End: 09-09-2022 Patient encounter procedure Lucina Wang APRN.GOLF PLAYER ASSISTANT Work Phone: OB/Gynecology Comment on above: IUD check up (Primar y Dx) Start: 08-25-2022 End: 08-25-2022 Patient encounter procedure Cyn Berry PA-C Work Phone: [facility] Comment on above: Mild episode of recu rrent major depressive disorder (HCC) (Primary Dx); Hypertension, essential; Encounter for immunization Start: 08-07-2022 ambulatory Cyn prince PA-C Work Phone: [facility] Comment on above: Shooting Pain In Hea d Start: 08-07-2022 End: 08-07-2022 Patient encounter procedure Bev Banks APRN.GOLF PLAYER ASSISTANT Work Phone: [facility] Comment on above: Neck pain on right s nisa (Primary Dx) Start: 08-05-2022 End: 08-05-2022 Patient encounter procedure Lucina Wang APRN.GOLF PLAYER ASSISTANT Work Phone: OB/Gynecology Comment on above: Encounter for IUD in sertion (Primary Dx); Menorrhagia with irregular cycle; Dysmenorrhea Start: 07-28-2022 Telephone encounter Karmen Mcfadden RNhealth services coordinator Comment on above: Request Outside [facility] Records Results Start: 07-27-2022 End: 07-27-2022 Patient encounter procedure Cyn Berry PA-C Work Phone: [facility] Comment on above: Well adult exam (Nadya rg Dx); Hypertension, essential; Dyslipidemia; Encounter for screening for diabetes mellitus; Mild episode of recurrent major depressive disorder (HCC); Inflammatory arthropathy; 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) Start: 07-27-2022 End: 07-27-2022 Patient encounter status Cyn Berry PA-C Work Phone: [facility] Start: 07-16-2022 Refill Britney Chong APRN.CNP Work Phone: [facility] Comment on above: Refill Request Start: 06-24-2022 End: 06-24-2022 Patient encounter procedure Britney Chong APRN.CNP Work Phone: [facility] Comment on above: Hypertension, essent ial (Primary Dx) Start: 05-14-2022 Telephone encounter Lucina bliss APRN.CNP Work Phone: OB/Gynecology Comment on above: Results; Orders; New Medication Start: 05-12-2022 End: 05-12-2022 Patient encounter procedure Marlene Melvin MD Work Phone: OB/Gynecology Comment on above: Excessive bleeding i n premenopausal period (Primary Dx) Start: 04-23-2022 Documentation procedure Mammog erika Coordinator [facility] Start: 04-23-2022 Letter encounter Mammography Coordinator [facility] Start: 04-22-2022 End: 04-22-2022 Subsequent hospital visit by physician Screen Mammo [facility] Comment on above: Encounter for screen ing mammogram for breast cancer [Z12.31] Start: 04-20-2022 End: 04-20-2022 Patient encounter procedure Lucina Wang APRN.GOLF PLAYER ASSISTANT Work Phone: OB/Gynecology Comment on above: Encounter for gyneco logical examination with abnormal finding (Primary Dx); Menorrhagia with irregular cycle; Vaginal yeast infection; Encounter for screening mammogram for breast cancer Start: 04-20-2022 End: 04-20-2022 Patient encounter status Lucina Wang APRN.GOLF PLAYER ASSISTANT Work Phone: OB/Gynecology Start: 03-03-2022 ambulatory Yang bravo MD Work Phone: [facility] Comment on above: Possible RX Start: 06-12-2021 Patient encounter status Inna Nieves MD Work Phone: [facility] Work Phone: Start: 11-22-2020 End: 11-22-2020 Subsequent hospital visit by physician Xr [facility] [place] Work Phone: Radiology Comment on above: Acute right-sided lo w back pain with right-sided sciatica [M54.41] Procedures Date Procedure Procedure Detail Performing Clinician Start: 05-09-[address] Trent Velazquez DO Work Phone: Start: 05-08-20[address] e detection Dr. Trent Velazquez DO Work Phone: Start: 05-08-[address] Trent Velazquez DO Work Phone: Start: 05-08-[address] Trent Velazquez DO Work Phone: Start: 05-08-2025 Iadna-dna/rna gi pth gn multiplex probe tq 6-11 Dr. Trent Velazquez DO Work Phone: Start: 05-02-2025 Antibody to centrome re measurement [...] by: INFCE on 05/07/25:0007 AMENDED REPORT 05/07/256 JOSHUA Ab previously reported as: Test not performed Start: 05-02-2025 Antibody to RIKY-[address] Trent Velazquez DO Work Phone: Comment on above: Previous reported re sult: TNP AIEdited by: INFCE on 05/07/25:0007 AMENDED REPORT 05/07/256 ANTI-RIKY previously reported as: Test not performed Start: 05-02-2025 Antibody to lupus La protein measurement Dr. Trent Velazquez DO Work Phone: Start: 05-02-2025 Antibody to SS-A measurement Dr. Trent Velazquez DO Work Phone: Start: 05-02-[address] Trent Velazquez DO Work Phone: Comment on above: Previous reported re sult: TNP AIEdited by: INFCE on 05/07/25:0007 AMENDED REPORT 05/07/256 ANTICHROMATIN previously reported as: Test not performed Start: 05-02-[address] Stuart Samayoa DO Work Phone: Start: 05-02-[address] Trent Velazquez DO Work Phone: Start: 05-02-2025 BLUE PRINT CONTROL CLERK antibody measurement Dr. Trent Velazquez DO Work Phone: Comment on above: Previous reported re sult: TNP AIEdited by: INFCE on 05/07/25:0007 AMENDED REPORT 05/07/256 BLUE PRINT CONTROL CLERK Ab previously reported as: Test not performed Start: 05-02-2025 Serum inorganic phos phate measurement Dr. Trent Velazquez DO Work Phone: Start: 05-02-2025 Jayesh Velazquez DO Work Phone: Start: 03-09-2024 Arthrocentesis aspir &/inj major jt/bursa w/us Da D Conley DO Work Phone: Start: 03-09-2024 Tenotomy shoulder ar ea 1 tendon Da D Conley DO Work Phone: Start: 03-09-2024 Us guidance needle placement img s&i Da D Conley DO Work Phone: Start: 03-09-2024 Arthrocentesis aspir &/inj major jt/bursa w/us Da D Conley DO Work Phone: Start: 02-23-2024 Us lmtd joint/oth no nvasc xtr strux r-t w/img Benjamin Patel MD Work Phone: Start: 12-22-2023 Radiologic exam ches t 2 views Magi Sands APRN.GOLF PLAYER ASSISTANT Work Phone: Start: 08-24-2023 Computed tomography of abdomen and pelvis with intravenous contrast Start: 02-17-2023 Lipid 1996 panel - S thi or Plasma Benjamin Patel MD Work Phone: Start: 08-25-2022 INFLUENZA VACCINE QUADRIVALENT 6 MO - 64 YRS IM Cyn Berry PA-C Work Phone: Start: 08-25-2022 PFIZER-BIONTAppetas COVI D-19 BIVALENT BOOSTER VACCINE, AGE 12+ YR Cyn Berry PA-C Work Phone: Start: 08-05-2022 Urine test visual color cmprsn meths Lucina Wang APRN.GOLF PLAYER ASSISTANT Work Phone: Start: 04-22-2022 End: 04-22-2022 Screening [...] Author Start: 02-18-2028 Lipid panel Lipid Screening [facility] Start: 02-18-2028 LIPID SCREEN LIPID SCREEN [facility] Start: 07-27-2027 LIPID SCREEN LIPID SCREEN [facility] Start: 07-07-2026 Diabetes Screening Diabetes Screening [facility] Start: 06-12-2026 LIPID SCREEN LIPID SCREEN [facility] Start: 03-13-2026 Urine microalbumin profile [facility] Start: 02-17-2026 DIABETES SCREEN DIABETES SCREEN [facility] Start: 07-27-2025 DIABETES SCREEN DIABETES SCREEN [facility] Start: 05-09-2025 Patient discharge [facility] Start: 05-08-2025 Giardia Antigen (MICHAEL) Giardia Antigen (MICHAEL) [facility] Start: 05-08-2025 Ova and Parasites Ova and Parasites [facility] Start: 05-08-2025 Elastase.pancreatic [Presence] in Stool [facility] Start: 05-08-2025 Fat [Presence] in Stool [facility] Start: 05-08-2025 Protein measurement [facility] Start: 05-08-2025 [facility] Start: 05-02-2025 Celiac disease screen [facility] Start: 05-02-2025 Gastrin [Mass/volume] in Serum or Plasma [facility] Start: 05-02-2025 Immunoglobulin measurement [facility] Start: 05-02-2025 In-vitro immunologic test [facility] Start: 05-02-2025 Serum immunofixation [facility] Start: 05-02-2025 [facility] Start: 12-21-2024 BP Controlled (<130/80) BP Controlled (<130/80) [facility] Start: 08-16-2024 HPV TESTING HPV TESTING [facility] Start: 08-16-2024 PAP TESTING PAP TESTING [facility] Start: 08-16-2024 Screening for malignant neoplasm of cervix [facility] Start: 06-22-2024 End: 06-22-2024 ambulatory 06/22/2024 2:00 PM EDT OT/PT/Speech Visit [facility] [address] [place] [address] O'Eliz Olmedo, PT Calcific tendinitis of right shoulder [M75.31] [facility] Comment on above: Calcific tendinitis of right shoulder [M 75.31] Start: 06-14-2024 End: 06-14-2024 ambulatory 06/14/2024 9:30 AM EDT OT/PT/Speech Visit [facility] [address] [place] [address] Eliz Hill, PT Calcific tendinitis of right shoulder [M75.31] [facility] Comment on above: Calcific tendinitis of right shoulder [M 75.31] Start: 06-12-2024 DIABETES SCREEN DIABETES SCREEN [facility] Start: 06-08-2024 End: 06-08-2024 ambulatory 06/08/2024 2:00 PM EDT OT/PT/Speech Visit [facility] [address] [place] [address] Farrah Zepeda, TOOL AND DIE MAKER/DESIGNER [address] [place] [address] Calcific tendinitis of right shoulder [M75.31] [facility] Comment on above: Calcific tendinitis of right shoulder [M 75.31] Start: 06-07-2024 Colonoscopy COLONOSCOPY [facility] Start: 06-07-2024 COLORECTAL CANCER SCREENING COLORECTAL CANCER SCREENING [facility] Start: 06-07-2024 Screening for malignant neoplasm of colon [facility] Start: 06-01-2024 End: 06-01-2024 ambulatory 06/01/2024 9:30 AM EDT OT/PT/Speech Visit [facility] [address] [place] [address] Farrah Zepeda, TOOL AND DIE MAKER/DESIGNER [address] [place] [address] Calcific tendinitis of right shoulder [M75.31] [facility] Comment on above: Calcific tendinitis of right shoulder [M 75.31] Start: 05-29-2024 End: 05-29-2024 ambulatory 05/29/2024 2:15 PM EDT [facility] [address] [place] [address] Da Conley, DO [address] [place] [address] 6wks virtual visit (missed her original appoitnment on 05/01/24) Orthopaedics Comment on above: 6wks virtual visit (missed her original appoitnment on 05/01/24) Start: 05-27-2024 Covid-19 Vaccine ( season) Covid-19 Vaccine ( season) [facility] Start: 05-27-2024 Covid-19 Vaccine ( season) Covid-19 Vaccine ( season) [facility] Start: 05-27-2024 Influenza vaccination [facility] Start: 05-22-2024 End: 05-22-2024 ambulatory 05/22/2024 3:00 PM EDT OT/PT/Speech Visit [facility] [address] [place] [address] Vineet'Eliz Olmedo, PT M75.31 (ICD-10-CM) - Calcific tendinitis of right shoulder [facility] Comment on above: M75.31 (ICD-10-CM) - Calcific tendinitis of right shoulder Start: 05-15-2024 End: 05-15-2024 ambulatory 05/15/2024 3:00 PM EDT OT/PT/Speech Visit [facility] [address] [place] [address] Eliz Hill, PT M75.31 (ICD-10-CM) - Calcific tendinitis of right shoulder [facility] Comment on above: M75.31 (ICD-10-CM) - Calcific tendinitis of right shoulder Start: 05-08-2024 End: 05-08-2024 ambulatory 05/08/2024 3:30 PM EDT OT/PT/Speech Visit [facility] [address] [place] [address] Farrah Zepeda, TOOL AND DIE MAKER/DESIGNER [address] [place] [address] M75.31 (ICD-10-CM) - Calcific tendinitis of right shoulder [facility] Comment on above: M75.31 (ICD-10-CM) - Calcific tendinitis of right shoulder Start: 05-06-2024 Dental X-Ray: FMX/[facility] Dental X-Ray: FMX/[facility] Start: 05-01-2024 End: 05-01-2024 ambulatory 05/01/2024 3:30 PM EDT OT/PT/Speech Visit [facility] [address] [place] [address] Farrah Zepeda, TOOL AND DIE MAKER/DESIGNER [address] [place] [address] M75.31 (ICD-10-CM) - Calcific tendinitis of right shoulder [facility] Comment on above: M75.31 (ICD-10-CM) - Calcific tendinitis of right shoulder Start: 05-01-2024 End: 05-01-2024 ambulatory 05/01/2024 7:30 AM EDT [facility] [address] [place] [address] Da Conley, [address] [place] [address] 6wks virtual visit Orthopaedics Comment on above: 6wks virtual visit Start: 04-24-2024 End: 04-24-2024 ambulatory 04/24/2024 2:15 PM EDT OT/PT/Speech Visit [facility] [address] [place] [address] Eliz Hill, PT M75.31 (ICD-10-CM) - Calcific tendinitis of right shoulder [facility] Comment on above: M75.31 (ICD-10-CM) - Calcific tendinitis of right shoulder Start: 04-17-2024 End: 04-17-2024 ambulatory 04/17/2024 1:30 PM EDT OT/PT/Speech Visit [facility] [address] [place] [address] Eliz Hill, PT M75.31 (ICD-10-CM) - Calcific tendinitis of right shoulder [facility] Comment on above: M75.31 (ICD-10-CM) - Calcific tendinitis of right shoulder Start: 04-10-2024 End: 04-10-2024 ambulatory 04/10/2024 2:45 PM EDT OT/PT/Speech Visit [facility] [address] [place] [address] Farrah Zepeda, TOOL AND DIE MAKER/DESIGNER [address] [place] [address] M75.31 (ICD-10-CM) - Calcific tendinitis of right shoulder [facility] Comment on above: M75.31 (ICD-10-CM) - Calcific tendinitis of right shoulder Start: 04-04-2024 End: 04-04-2024 ambulatory 04/04/2024 3:45 PM EDT OT/PT/Speech Visit [facility] [address] [place] [address] Albino Palafox, PT, DPT M75.31 (ICD-10-CM) - Calcific tendinitis of right shoulder [facility] Comment on above: M75.31 (ICD-10-CM) - Calcific tendinitis of right shoulder Start: 03-27-2024 End: 03-27-2024 ambulatory 03/27/2024 3:45 PM EDT OT/PT/Speech Visit [facility] [address] [place] [address] OEliz Hall, PT Right shoulder =- [employer] Mae [facility] Physical Therapy Comment on above: Right shoulder =- [employer] Start: 03-09-2024 End: 03-09-2024 Patient encounter procedure 03/09/2024 9:15 AM EDT Office Visit Orthopaedics [address] [place] [address] Da Conley, DO [address] [place] [address] TENJET ONLY - RIGHT SHOULDER Orthopaedics Comment on above: TENJET ONLY - RIGHT SHOULDER Start: 02-23-2024 End: 02-23-2024 Patient encounter procedure 02/23/2024 2:25 PM EDT Appointment Radiology [address] [place] [id number] US SHOULDER RT; EVAL LOCATION+SIZE OF CALCIFIC DEPOSITS NOTED ON XR Radiology Comment on above: US SHOULDER RT; EVAL LOCATION+SIZE OF CA LCIFIC DEPOSITS NOTED ON XR Start: 02-22-2024 End: 02-22-2024 Patient encounter procedure 02/22/2024 10:45 AM EDT Office Visit Orthopaedics [address] [place] [address] Da Conley, DO [address] [place] [address] discuss treatment options, right shoulder. Referred by Dr. Mekhi Patel Orthopaedics Comment on above: discuss treatment options, right shoulde r. Referred by Dr. Mekhi Patel Start: 02-13-2024 End: 02-13-2024 Patient encounter procedure 02/13/2024 9:10 AM EDT Appointment Mammogram [address] [place] [address] Mammogram Start: 02-08-2024 End: 02-08-2024 Patient encounter procedure Radiology Comment on above: rt shoulder XR rt shoulder pain (ca n hardly move it) Start: 01-28-2024 ANNUAL PCP TEAM CHRONIC DISEASE VISIT ANNUAL PCP TEAM CHRONIC DISEASE VISIT [facility] Start: 01-28-2024 BP CONTROLLED (<130/80) BP CONTROLLED (<130/80) [facility] Start: 09-26-2023 Behavioral Health Screening Behavioral Health Screening [facility] Start: 09-09-2023 BP CONTROLLED (<130/80) BP CONTROLLED (<130/80) [facility] Start: 08-25-2023 ANNUAL PCP TEAM CHRONIC DISEASE VISIT ANNUAL PCP TEAM CHRONIC DISEASE VISIT [facility] Start: 08-24-2023 [facility] Start: 07-27-2023 ANNUAL PCP TEAM CHRONIC DISEASE VISIT ANNUAL PCP TEAM CHRONIC DISEASE VISIT [facility] Start: 05-27-2023 Covid-19 Vaccine () Covid-19 Vaccine () [facility] Start: 05-27-2023 Influenza vaccination INFLUENZA (#1) [facility] Start: 04-22-2023 Mammography MAMMOGRAM [facility] Start: 04-22-2023 Screening for malignant neoplasm of breast Mammogram Screening [facility] Start: 09-26-2022 DEPRESSION ASSESSMENT DEPRESSION ASSESSMENT [facility] Start: 07-27-2022 End: 09-26-2022 Comprehensive metabolic 2000 panel - Serum or Plasma [facility] Work Phone: Comment on above: Expected: 07/27/2022, Expires: 3 Start: 07-27-2022 End: 09-26-2022 Hemoglobin A1c in Blood [facility] Work Phone: Comment on above: Expected: 07/27/2022, Expires: 3 Start: 07-27-2022 End: 09-26-2022 LIPID PANEL, NONFASTING [facility] Work Phone: Comment on above: Expected: 07/27/2022, Expires: 3 Start: 07-27-2022 End: 09-26-2022 Urinalysis complete panel - Urine [facility] Work Phone: Comment on above: Expected: 07/27/2022, Expires: 3 Start: 06-10-2022 Adult depression screening assessment DEPRESSION SCREENING [facility] Start: 05-27-2022 Influenza vaccination INFLUENZA (#1) [facility] Start: 04-20-2022 End: 06-20-2022 Thyrotropin [Units/volume] in Serum or Plasma [facility] Work Phone: Comment on above: Expected: 04/20/2022, Expires: 2 Start: 10-15-2021 Mammography MAMMOGRAM [facility] Start: 09-26-2021 DEPRESSION ASSESSMENT DEPRESSION ASSESSMENT [facility] Start: 04-04-2021 COVID-19 VACCINE (3 - Booster for Moderna series) COVID-19 VACCINE (3 - Booster for Moderna series) [facility] Start: 12-31-2020 COVID-19 VACCINE (3 - Booster for Moderna series) COVID-19 VACCINE (3 - Booster for Moderna series) [facility] Start: 2020 COLOGUARD (FIT-DNA) COLOGUARD (FIT-DNA) [facility] Start: [address] COLONOGRAPHY [facility] Start: 2020 FECAL OCCULT BLOOD FECAL OCCULT BLOOD [facility] Start: 2020 Screening for malignant neoplasm of colon [facility] Start: 2020 SIGMOIDOSCOPY SIGMOIDOSCOPY [facility] Start: 11-16-2019 HEPATITIS B (2 of 3 - 3-dose series) [facility] Start: 11-16-2019 Hepatitis B Vaccine (2 of 3 - 19+ 3-dose series) Hepatitis B Vaccine (2 of 3 - 19+ 3-dose series) [facility] Start: 1993 Anxiety Screening Anxiety Screening [facility] Start: 1993 BP CONTROLLED (<130/80) BP CONTROLLED (<130/80) [facility] Start: 1993 Depression Screening Depression Screening [facility] Start: 1975 Dental Oral Exam Dental Oral Exam [facility] Start: 1975 Dental Perio Probing Dental Perio Probing [facility] Start: 1975 Dental Prophylaxis Dental Prophylaxis [facility] Start: 1975 Dental X-Ray: Bitewings Dental X-Ray: Bitewings [facility] Start: 1975 Periodontal Maintenance Periodontal Maintenance [facility] Albumin [Moles/volum e] in Serum or Plasma [facility] Albumin/Globulin ratio [facility] C reactive protein [Mass/volume] in Serum or Plasma [facility] CBC W Auto Different ial panel - Blood [facility] Celiac disease screen [facility] Chitobioside IgA Ab [Units/volume] in Serum or Plasma by Immunoassay [facility] Clostridioides diffi cile DNA [Presence] in Unspecified specimen by NYDIA with probe detection [facility] Comprehensive metabo lic 1999 panel - Serum or Plasma [facility] Elastase.pancreatic [Presence] in Stool [facility] Electrophoresis: [id number] [facility] Electrophoresis: venkat ma globulin [facility] Endometrial bx w/wo endocervix bx w/o dilat spx ENDOMETRIAL BIOPSY Procedures Routine Excessive bleeding in premenopausal period Ordered: 05/14/2022 [facility] Work Phone: Comment on above: Ordered: 05/14/2022 Erythrocyte sediment ation rate [facility] Fat [Mass/mass] in Stool [facility] Fat [Presence] in Stool [facility] Fat.neutral [Presenc e] in Stool [facility] Ferritin [Mass/volum e] in Serum or Plasma [facility] Gastrin [Mass/volume ] in Serum or Plasma [facility] Giardia lamblia anti gen assay [facility] Globulin measurement [facility] IgA [Mass/volume] in Serum or Plasma [facility] IgE [Units/volume] i n Serum or Plasma [facility] IgG [Mass/volume] in Serum or Plasma [facility] IgM [Mass/volume] in Serum or Plasma [facility] Immunoglobulin measurement [facility] In-vitro immunologic test [facility] Insertion intrauteri ne device iud INSERT INTRAUTERINE DEVICE Procedures Routine Excessive bleeding in premenopausal period Ordered: 05/14/2022 [facility] Work Phone: Comment on above: Ordered: 05/14/2022 Laboratory data interpretation [facility] Lactate dehydrogenas e measurement [facility] Lactoferrin [Presenc e] in Stool by Immunoassay [facility] Laminaribioside IgG Ab [Units/volume] in Serum or Plasma by Immunoassay [facility] Magnesium measurement [facility] End: 06-23-2024 MARCELA SCREENING MARCELA SCREENING Radiology Routine Encounter for screening mammogram for breast cancer 1 Occurrences starting 05/25/2023 until 06/23/2024 [facility] Work Phone: Comment on above: 1 Occurrences starting 05/25/2023 until 06/23/2024 Mannobioside IgG Ab [Units/volume] in Serum or Plasma by Immunoassay [facility] Measurement of funga l antibody [facility] Mycobacterium tuberc ulosis tuberculin stimulated gamma interferon [Presence] in Blood [facility] Neutrophil cytoplasm ic Ab.classic [Units/volume] in Serum [facility] Neutrophil cytoplasm ic Ab.perinuclear.atypical [Titer] in Serum by Immunofluorescence [facility] Nucleic acid assay [facility] Ova OR parasites identification [facility] P-ANCA measurement [facility] Patient Education [facility] Work Phone: Patient referral [facility] Work Phone: PELVIC US I PELVIC US I An c Imaging Routine Menorrhagia with irregular cycle Ordered: 04/20/2022 [facility] Work Phone: Comment on above: Ordered: 04/20/2022 Protein electrophore sis panel - Serum or Plasma [facility] Protein measurement [facility] End: 05-20-2023 Screening mammography bi 2-view breast inc cad MARCELA SCREENING Radiology Routine Encounter for screening mammogram for breast cancer 1 Occurrences starting 04/20/2022 until 05/20/2023 [facility] Work Phone: Comment on above: 1 Occurrences starting 04/20/2022 until 05/20/2023 Screening mammograph y bi 2-view breast inc cad MARCELA SCREENING Radiology Routine Encounter for screening mammogram for breast cancer 04/22/2022 3:06 PM EDT [facility] Work Phone: Serum immunofixation [facility] Serum inorganic phos phate measurement [facility] SURGICAL PATHOLOGY SURGICAL PATH OLOGY Lab Routine Encounter for IUD insertion Ordered: 08/05/2022 [facility] Work Phone: Comment on above: Ordered: 08/05/2022 T4 free measurement [facility] Thyroid stimulating hormone measurement [facility] Tissue transglutamin ase IgA Ab [Units/volume] in Serum [facility] Triiodothyronine, fr ee measurement [facility] End: 03-09-2025 US Shoulder - right US SHOULDER RIGHT Radiology SHLOMO Calcific tendonitis 1 Occurrences starting 02/08/2024 until 03/09/2025 [facility] Work Phone: Comment on above: 1 Occurrences starting 02/08/2024 until 03/09/2025 Vitamin B12 measurement [facility] End: 03-07-2025 XR Shoulder - right 3 Views XR SHOULDER GENERAL 3V OR MORE AP/TRUE AP/OTHER RIGHT Radiology Routine Pain 1 Occurrences starting 02/06/2024 until 03/07/2025 [facility] Work Phone: Comment on above: 1 Occurrences starting 02/06/2024 until 03/07/2025 XR Shoulder - right 3 Views XR S HOULDER GENERAL 3V OR MORE AP/TRUE AP/OTHER RIGHT Radiology Routine Pain 02/08/2024 10:03 AM EDT [facility] Work Phone: [facility] Immunizations Immunization Date Immunization Notes Care Provider [facility] 09-05-2024 influenza, seasonal, injectable, preservative free Dr. Trent Velazquez DO Work Phone: [facility] 08-25-2022 COVID-19 booster vaccine, age 12+ yr, bivalent (PFIZER-BIONTAppetas) Cyn Berry PA-C Work Phone: [facility] 08-25-2022 influenza, injectabl e, quadrivalent, contains preservative Cyn Berry PA-C Work Phone: [facility] 08-25-2022 influenza virus vaccine, unspecified formulation Benjamin Patel MD Work Phone: [facility] 06-12-2021 influenza, injectabl e, quadrivalent, contains preservative Yang Nieves MD Work Phone: [facility] 11-05-2020 Covid (Moderna) Dr. Trent isaacs DO Work Phone: [facility] 10-08-2020 Covid (Moderna) Dr. Trent isaacs DO Work Phone: [facility] 11-02-2019 influenza, injectabl e, quadrivalent, contains preservative Yang Nieves MD Work Phone: [facility] 10-19-2019 hepatitis A vaccine, adult dosage Yang Nieves MD Work Phone: [facility] Work Phone: 10-19-2019 hepatitis B vaccine, adult dosage Yang Nieves MD Work Phone: [facility] Work Phone: 10-19-2019 measles, mumps and rubella virus vaccine Yang Nieves MD Work Phone: [facility] Work Phone: 10-19-2019 hepatitis B vaccine, unspecified formulation Marlene Melvin MD Work Phone: [facility] 07-29-2018 influenza, injectabl e, quadrivalent, contains preservative Yang Nieves MD Work Phone: [facility] Work Phone: 07-14-2016 influenza, injectabl e, quadrivalent, contains preservative Yang Nieves MD Work Phone: [facility] Work Phone: 03-13-2016 tetanus toxoid, redu ekaterina diphtheria toxoid, and acellular pertussis vaccine, adsorbed Yang Nieves MD Work Phone: [facility] Work Phone: 06-18-2015 influenza, injectabl e, quadrivalent, preservative free [facility] 06-18-2015 influenza, seasonal, injectable [facility] 05-07-1991 diphtheria and tetan us toxoids, adsorbed for pediatric use Yang Nieves MD Work Phone: [facility] 11-27-1979 tuberculin skin test ; purified protein derivative solution, intradermal Eliz O'Honorio PT [facility] 11-20-1979 diphtheria, tetanus toxoids and acellular pertussis vaccine Yang Nieves MD Work Phone: [facility] 11-20-1979 trivalent poliovirus vaccine, live, oral Yang Nieves MD Work Phone: [facility] 06-19-1976 measles, mumps and rubella virus vaccine Yang Nieves MD Work Phone: [facility] 1975 diphtheria, tetanus toxoids and acellular pertussis vaccine Yang Nieves MD Work Phone: [facility] 1975 trivalent poliovirus vaccine, live, oral Yang Nieves MD Work Phone: [facility] 1975 diphtheria, tetanus toxoids and acellular pertussis vaccine Yang Nieves MD Work Phone: [facility] 1975 trivalent poliovirus vaccine, live, oral Yang Nieves MD Work Phone: [facility] 1975 diphtheria, tetanus toxoids and acellular pertussis vaccine Yang Nieves MD Work Phone: [facility] 1975 trivalent poliovirus vaccine, live, oral Yang Nieves MD Work Phone: [facility] Payers Date Payer Category Payer Unknown [id number] 2024 Self-pay 2024 Unknown [id number] 2021 Unknown MMO MMO [employer] PLUS [id number] 2021-Present [phone] [address] [place] [address] PPO [id number] 2015 Unknown [id number] 2015 Unknown [id number] Unknown [id number] Unknown [id number] Unknown [id number] Unknown [id number] Unknown [id number] Unknown [id number] Unknown [id number] Unknown [id number] Unknown [id number] Unknown [id number] Social History Date Type Detail Facility Start: 11-09-2017 End: 05-08-2025 Tobacco smoking status NCIS Never smoked tobacco [facility] Start: 09-01-2020 End: 09-07-2021 Alcohol intake Current drinker of alcohol (finding) [facility] Start: 08-31-2020 End: 09-07-2021 Alcohol intake [facility] Start: 06-10-2021 History SDOH Alcohol Frequency 4 [facility] Start: 06-10-2021 History SDOH Alcohol Std Drinks 1 [facility] Start: 06-10-2021 History SDOH Social Connections Get Together 5 [facility] Start: 06-10-2021 History SDOH Social Connections Living 3 [facility] Start: 06-10-2021 History SDOH Stress 2 [facility] Start: 06-10-2021 Education 12 [facility] Start: 1975 Sex Assigned At Not on file [facility] Start: 11-09-2017 End: 06-24-2022 Tobacco use and exposure Smokeless tobacco non-user [facility] Work Phone: Start: 10-23-2020 End: 08-25-2022 Exposure to SARS-CoV-2 (event) Not sure [facility] Start: 07-27-2022 Alcohol Comment occassionally [facility] Start: 07-17-2022 End: 07-27-2022 Exposure to SARS-CoV-2 (event) Yes [facility] Start: 04-14-2017 End: 08-24-2023 Tobacco smoking status NCIS Unknown if ever smoked [facility] Start: 1975 Sex Assigned At Female W [facility] Start: 08-31-2020 End: 06-10-2021 Social connection and isolation panel [facility] Active Member of u bs or Organizations Not on file [facility] Are you now , , , , never or living with a partner? [facility] How often to you hav e a drink containing alcohol? 2-3 time sa week [facility] How many standard drinks containing alcohol do you have on a typical day? 1 or 2 [facility] How often do you hav e 6 or more drinks on 1 occasion? Never [facility] Do you feel stress - tense, restless, nervous, or anxious, or unable to sleep at night because your mind is troubled all the time - these days [OSQ] Only a little [facility] (I/We) worried da er (my/our) food would run out before (I/we) got money to buy more. Never true [facility] In the past 12 month s, was there a time when you were not able to pay the mortgage or rent on time? No [facility] How often to you hav e a drink containing alcohol? 2-4 times a month [facility] NEGATED: Highlighted row [facility] Goals Date Patient Goal Desired Activity /State Personal health goal Mental Status Date Assessment Result Facility 05-09-2025 Cognitive function Voice/Name [facility] Work Phone: 04-28-2023 Cognitive function Voice/Name [facility] Work Phone: Clinical Notes 11-22-2020 to 06-13-2025 Note Date & Type Note Facility 06-13-2025 Note HNO ID: [id number] Author: BENTON YUEN MD Service: ? Author Type: Physician Type: Progress Notes Filed: 06/13/2025 16:43 Note Text: Obstetrics and Gynecology Mica DIRECTOR SPECIALTY Visit Subjective Recording using ambient [employer] software for draft documentation of the visit was discussed with the patient/authorized technology sales representative; all questions welcomed and answered. Patient/authorized technology sales representative agreed to proceed CHIEF COMPLAINT: The patient is a 50-year-old female with arthritis, presenting for evaluation of pelvic pain and persistent abdominal petechiae. HPI: The patient is a 50-year-old female with a history of arthritis, inflammatory bowel disease, and perimenopausal symptoms presenting with pelvic pain and petechiae. - Reports persistent pelvic pain despite treatment and evaluation of resolution of recent gastrointestinal issues. - Describes pain as sharp and localized to the pelvic and upper abdominal areas, exacerbated by a full bladder. - Denies cyclical nature of pain. - Experiences dyspareunia. - Recent upper and lower endoscopies revealed esophageal and gastric inflammation, two ulcers, and diverticulitis; biopsies were performed. - Currently on medication for gastrointestinal issues, which has alleviated heartburn and nausea but not pelvic pain. - History of colonoscopy over 10 years ago showing inflammation at the base of the colon; was treated with Asacol. Petechiae - Reports petechiae on the abdomen and occasionally on the legs, waxing and waning over the past year. - Denies associated itching, burning, or pain. - No history of easy bruising, prolonged bleeding, or new trauma. - No new medications prior to onset of petechiae. - No history of eczema or sensitive skin. - Evaluated at urgent care in December; prescribed prednisone but no further evaluation was performed. Arthritis - Diagnosed with arthritis; reports joint swelling and aching, particularly in the hands, lower back, hips, and feet. - Previous rheumatology evaluation revealed elevated inflammatory markers but no diagnosis of rheumatoid arthritis. - Was on unspecified medication for arthritis but discontinued follow-up due to multiple canceled appointments. Perimenopausal Symptoms - Experiencing hot flashes, described as severe enough to cause sweating during activities. - Reports sleeping well despite hot flashes. - Taking a prebiotic, probiotic, and estrogen to manage symptoms, but notes minimal improvement. Current Medications and Supplements - Prebiotic - Probiotic - Estrogen - Upper and lower endoscopies (recent): Esophageal and gastric inflammation, two ulcers, and diverticulitis; biopsies performed. HISTORY: OB History Gravida2 Para0 Term0 Preterm0 AB0 Living2 SAB0 IAB0 Ectopic0 Multiple0 Live Births0 Lean Manager History LMP: 08/02/2022 (Approximate), IUD Age at Menarche: Age at First : Age at Menopause: Lean Manager History Comments: Sexual Activity: Yes; Male Contraception: Vasectomy PAST MEDICAL HISTORY Diagnosis Date ADD [...] PAST SURGICAL HISTORY Procedure Laterality Date COLONOSCOPY 05/09/2025 COLONOSCOPY FLX DX W/COLLJ SPEC WHEN PFRMD 06/07/2014 repeat 10 yrs EGD W/O [facility] SPEC VARICIES INJ 05/09/2025 INSERT INTRAUTERINE DEVICE 08/05/2022 Mirena LAPAROSCOPIC APPENDECTOMY 06/17/2016 SHOULDER SURGERY HX Right 02/2024 TONSILLECTOMY PRIMARY/SECONDARY Tonsillectomy alone FAMILY HISTORY Problem Relation Age of Onset Arthritis Mother VANESSA Hypertension Mother Arthritis Father VANESSA Diabetes Father Melanoma Father No Known Problems Brother Arthritis Maternal Grandmother Alzheimer's Disease Maternal Grandfather Cancer Paternal Grandmother Diabetes Paternal Grandfather Breast Cancer Maternal Aunt SOCIAL HISTORY[1] Current Outpatient Medications Medication Sig sucralfate (CARAFATE) [address] (PROTONIX) 40 mg tablet ARMOUR THYROID 60 mg tablet escitalopram oxalate (LEXAPRO) 10 mg tablet Take 1 tablet by mouth once daily. lisinopril (ZESTRIL) 20 mg tablet Take 1 tablet by mouth once daily. levonorgestrel (MIRENA) 20 mcg/24 hours (8 yrs) 52 mg IUD 1 Each by INTRAUTERINE route one time only. cetirizine (ZYRTEC) 10 mg tablet Take 1 tablet by mouth once daily. meloxicam (MOBIC) 7.5 mg tablet Take 1 tablet by mouth once daily. oxyCODONE-acetaminophen (PERCOCET) 5-325 mg tablet methylPREDNISolone (MEDROL, SEAN,) 4 mg Dose-Pack As I (more content not included)... [facility] 05-09-2025 Consult note Note Date/Time May 09, 2025 6:58am [facility] Medical Records Department [address] [place] [address] Pre-Anesthesia Evaluation 05/09/25 0654 MR#: [id number] Acct: [id number] Name: MENDOZA JOHNSON Rep #:[id number] : 1975 49 From: Tarun Jimenez MD PCP: Dr. Trent Velazquez, DO Status:REG S DC Y Race: C Location: [place] [address] ASA Classification* ASA Classification ASA Classification: 2 Assessment & Plan Anesthesia* Anesthesia Assessment Anesthesia Assessment: Discussed sedation and/or anesthesia options, risks, benefits, and alternatives with patient/parents/legal guardian/POA. Questions invited. The patient/parents/legal guardian/POA seems to understand and agrees to proceedwith anesthesia plan. Reviewed the physical assessment, medical history, allergy history and patient home medications list prior to surgery/procedure/anesthetic and documented any changes. Performed airway and anesthesia risk assessments. Anesthesia Type Anesthesia Type: MAC History Source History Obtained from:: Patient and Chart Anesthesia Focused Assessment* Temperature: 97.6 F Pulse Rate: 72 Blood Pressure: 130/81 Respiratory Rate: 16 Pulse Ox: 96 Oxygen Delivery Method: Room Air Airway Assessment Mouth opens: >3 cm Mallampati Score: I Teeth Condition: Intact Neck Range of motion (ROM): Full ROM Labs Anesthesia Preop lab: CBC WBC 8.3 K/mm3 (4.4-11.0) 05/02/25 07:24 05/02/25 RBC 4.49 M/mm3 (4.2-5.4) 05/02/25 07:24 05/02/25 Hgb 13.0 g/dL (12.0-15.0) 05/02/25 07:24 05/02/25 Hct 39.4 % (37-47) 05/02/25 07:24 05/02/25 Plt Count 277 K/mm3 (150-450) 05/02/25 07:24 05/02/25 CHEMISTRY Potassium 4.0 mmol/L (3.3-5.1) 05/02/25 07:24 05/02/25 Sodium 139 mmol/L (133-145) 05/02/25 07:24 05/02/25 Magnesium 2.0 mg/dL (1.5-2.2) 05/02/25 07:05/02/25 Phosphorus 3.2 mg/dL (2.7-4.5) 05/02/25 07:24 05/02/25 BUN 15 mg/dL (4-19) 05/02/25 07:24 05/02/25 Creatinine 0.76 mg/dL (0.70-1.20) 05/02/25 07:24 05/02/25 Glucose 98 mg/dL (70-99) 05/02/25 07:24 05/02/25 TSH 1.070 uIU/mL (0.300-4.200) 05/02/25 07:04/19 COAG Urine Test Negative Negative 05/09/25 06:15 05/09/25 Pre-Assessment Diagnosis/Proposed Procedure Planned Operative Procedure(s): Colonoscopy,EGD Anesthesia History Anesthesia History - pack changer: Anesthesia History - pack changer Hx Hospitalization No 05/08/25 08:39 Any Problems With Anesthesia No 05/08/25 08:39 Cholinesterase deficiency No 05/08/25 08:39 You/Your Family Experience No 05/08/25 08:39 fever (hyperthermia) with Relationship Recent Exposure to Contagious No 05/09/25 06:35 Disease Does patient have nerve No 05/08/25 08:39 stimulator Patient instructed to have device shut off --Does patient have Pacemaker No 05/09/25 06:35 or ICD? When Was Last Pacemaker Check QUESTION #4 FULL TEXT: You/Your Family Experience fever (hyperthermia) with Anesthesia Last Oral Intake Last Oral intake: Last Oral Intake NPO since 03:00 08/14/25 06:35 Meds taken in AM with sips of No 05/09/25 06:35 water? Meds patient instructed to take am of surgery Any additional information?: Yes NPO since: 03:00 (Patient finished prep at 3 AM.) Meds taken in AM with sips of water?: No PONV PONV - pack changer: PONV - pack changer Female Yes 05/08/25 08:39 HX of Motion Sickness No 05/08/25 08:39 HX of N/V After Surgery No 05/08/25 08:39 Non-Smoker Yes 05/08/25 08:39 Duration of Surgery greater No 05/08/25 08:39 than 60 minutes Number of Risk Factors 2 05/08/25 08:39 PONV Score Moderate Risk 05/08/25 08:39 Height & Weight Height & Weight: Anesthesia: Height & Weight Height 5 ft 6 in 05/09/25 06:35 Weight: 103.1 kg 05/09/25 06:35 Body Mass Index (BMI) 36.6 05/09/25 06:35 Respiratory Assessment Respiratory Assessment - pack changer: Respiratory Tract Infection Hx - pack changer Hx Respiratory Tract Infection No 05/08/25 08:39 STOP Sleep Apnea STOP Sleep Apnea - pack changer: STOP Sleep Apnea - pack changer Hx Hypertension No 05/08/25 08:39 Hx Sleep Apnea Yes 05/08/25 08:39 CPAP Yes 05/08/25 08:39 BIPAP No 05/08/25 08:39 Do you snore loudly (louder No 05/08/25 08:39 than talking or can be heard Do you often feel tired/ No 05/08/25 08:39 fatigued/ sleepy during daytime? Has anyone observed you stop No 05/08/25 08:39 breathing during sleep? STOP Results Positive 05/08/25 08:39 QUESTION #5 FULL TEXT : Do you snore loudly (louder than talking or can be heard through closed doors)? 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 Specify any problems Hx of Preganancy in last 3 No 05/08/25 08:39 Months Nurse Filling Out Transfusion VCHRISTIN 05/08/25 08:39 & Questions: Date: 05/08/25 05/08/25 08:39 Time: 08:40 05/08/25 08:39 Patient unable to answer at this time (ie. confused, unrespo /Reproduction History /Reproductive History - pack changer: /Reproductive Hx- pack changer Hx Now No 05/08/25 08:39 Gestational Age (in weeks): EDC: Hx Hx Para Hx Section SAB No 05/08/25 08:39 Active Medications Active Medications: Current Medications Generic Name Dose Route Start Last Admin Trade Name Freq PRN Reason Stop Dose Admin Lactated Ringer's 1,000 mls @ 15 mls/hr 05/09/25 06:15 05/09/25 06:38 IV 15 mls/hr .Q48H FELISA Administration PFSH Medical History Wears contact lenses Wears glasses Anxiety Depression Alcohol use Thyroid disease Back pain Gastric reflux Non-smoker CPAP (continuous positive airway pressure) dependence Sleep apnea Arthritis IBS (irritable bowel syndrome) History of palpitations Allergic dermatitis Hypothyroidism Osteoporosis Hypertension Home Medications ?Medication ?Instructions ?Recorded ?Last Taken ?Type escitalopram oxalate 10 mg tablet 10 mg PO DAILY 04/2805/08/25 History lisinopril 20 mg tablet 20 mg PO DAILY 04/28/2304/26 History Lactobacillus acidophilus 10 100 mmu cells PO DAILY 05/08/25 History billion cell capsule (NewFlora) cetirizine 10 mg tablet (24Hour 10 mg PO DAILY 5 05/08/25 History Allergy) thyroid (pork) 60 mg tablet 60 mg PO DAILY 05/08/25 History ([place] Thyroid) Allergy/AdvReac Type Severity Reaction Status Date / Time No Known Allergies Allergy Verified 05/09/25 06:34 Surgical History Hx of colonoscopy Hx of tonsillectomy History of appendectomy Social History household members: spouse Smoking Status: Never smoker alcohol intake: current alcohol intake frequency: holidays/special occasions only substance use type: does not use Review of Systems (Anesthesia) ROS Narrative System reviewed and no additional complaints, except as documented. 05/09/25 0658 <Electronically signed by Tarun marie MD> Date _ Tarun Jimenez MD Cosigner Signature: Date CC: ~ Signed [facility] Work Phone: 1(810) 889-482608-14-2025 History and physical note Author Axel Friend [facility] Note Date/Time May 09, 2025 6: 45am [facility] Medical Records Department [address] [place] [address] History & Physical Exam 05/09/25 0643 MR#: [id number] Acct: [id number] Name: MENDOZA JOHNSON Rep #:[id number] : 1975 49 From: Axel Castaneda DO PCP: Dr. Trent Velazquez, DO Status:REG S DC Location: [place] [address] HPI - General General Date of Admission: 05/09/25 Date of Service: 05/09/25 Chief Complaint: Abdominal pain, bloating and diarrhea HPI Narrative MENDOZA JOHNSON, is a 49 F who presents for the evaluation of abdominal pain, bloating and diarrhea. She reports with long history of what she describes as IBS symptoms. Pt reports she will eat, her stomach will hurt, and then she will have diarrhea. Pt reportsit does not seem to matter what she [...] her last colonoscopy was 10+ years ago. [facility] Medical History Wears contact lenses Wears glasses Anxiety Depression Alcohol use Thyroid disease Back pain Gastric reflux Non-smoker CPAP (continuous positive airway pressure) dependence Sleep apnea Arthritis IBS (irritable bowel syndrome) History of palpitations Allergic dermatitis Hypothyroidism Osteoporosis Hypertension Home Medications ?Medication ?Instructions ?Recorded ?Last Taken ?Type escitalopram oxalate 10 mg tablet 10 mg PO DAILY 04/2805/08/25 History lisinopril 20 mg tablet 20 mg PO DAILY 04/28/2304/26 History Lactobacillus acidophilus 10 100 mmu cells PO DAILY 05/08/25 History billion cell capsule (NewFlora) cetirizine 10 mg tablet (24Hour 10 mg PO DAILY 5 05/08/25 History Allergy) thyroid (pork) 60 mg tablet 60 mg PO DAILY 05/08/25 History ([place] Thyroid) Allergy/AdvReac Type Severity Reaction Status Date / Time No Known Allergies Allergy Verified 05/09/25 06:34 Surgical History Hx of colonoscopy Hx of tonsillectomy History of appendectomy Social History household members: spouse Smoking Status: Never smoker alcohol intake: current alcohol intake frequency: holidays/special occasions only substance use type: does not use ROS Constitutional Constitutional: Denies fatigue, fever(s), poor appetite, weight gain or weight loss Gastrointestinal Gastrointestinal: Denies belching, bloating, change in bowel habits, change in stool character, chewing difficulty, coffee ground emesis, constipation, cramping, diarrhea, dyspepsia, dysphagia, early satiety, excessive flatus, fecalincontinence, heartburn, hematemesis, hematochezia, hemorrhoids, loose stools, melena, nausea, odynophagia, rectal bleeding, tenesmus, vomiting or weight changes Vital Signs Vital Signs Vital Signs: 05/09/25 06:35 05/09/25 06:35 Temperature 97.6 F L Temperature Source Temporal Pulse Rate 72 Respiratory Rate 16 Respiratory Pattern Normal Blood Pressure 130/81 H Blood Pressure Mean 97 Blood Pressure Source Monitor Blood Pressure Position Semi-Fowlers Blood Pressure Location Right Arm Pulse Ox 96 Oxygen Delivery Method Room Air Weight Weight: 227 lb 4.745 oz Body Mass Index (BMI) 36.6 Physical Exam Const alert, oriented x3, no apparent distress and healthy appearing General Appearance: cooperative GI normal to inspection, nondistended, normoactive bowel sounds, soft to palpation,non-tender and non-distended Percussion: normal to percussion Rectal Exam: deferred Results Lab / Micro Data Labs: Laboratory Results - last 24 hr 05/09/25 06:15: Urine Test Negative Assessment & Plan Assessment/Plan (1) Bloating: (2) Diarrhea: PLAN: Assessment and Plan Assessment and Plan (1) Diarrhea: Status: Acute (2) Bloating: Status: Acute Plan: This is a very pleasant 49-year-old with past medical history of mild depression, hypertension who arrives here for evaluation of abdominal pain, bloating and diarrhea. Patient says this has been going on for multiple years. She did see Dr. Prashant Ortiz in the past in which she underwent a colonoscopy itwas possibly diagnosed with ulcerative proctitis. She saw a baby nurse probably 15 years ago who had placed her on Asacol and she actually did pretty well on the medicine but was lost to follow-up. She has been getting an intermittent rash on her abdomen and extremities with associated joint swelling and stiffness of her hands wrists and knees. She saw a insurance claims adjuster down to [facility] and here in town and was diagnosed with chronic inflammation of the joints. She does not note a specificdiagnosis. She again was lost to follow-up. She comes in today because her bloating and abdominal pain is getting a little bit worse along with frequent diarrhea. Her weight has been stable. She denies any night sweats. She deniedany travel. She does not have well water. She has not had any change in medicines. Assessment: - Diarrhea-differential diagnosis does include inflammatory bowel disease, microscopic colitis, collagenous colitis, lymphocytic colitis. It also includesbut less likely neuroendocrine associated diarrhea, celiac disease. We also discussed the possibility of IBS with diarrhea and pancreatic insufficiency which is also on the differential diagnosis. Plan: She will undergo an upper or lower endoscopy to evaluate upper lower GI tract. We will also do biochemical workup and stool testing. She may need imaging in the future. She okay with this plan. She was explained alternatives, risk and benefits include not withstanding bleeding, infection, subsequent perforation, need for urgent . She will have an ASA of 3. Orders: Orders HARDIK + Protein Elect, Serum Today R14.0 - Abdominal distension (gaseous), R19.7 - Diarrhea, unspecified CBC W/Diff, Automated Today R14.0 - Abdominal distension (gaseous), R19.7 - Diarrhea, unspecified Ferritin Today R14.0 - Abdominal distension (gaseous), R19.7 - Diarrhea, unspecified ANCA Today R14.0 - Abdominal distension (gaseous), R19.7 - Diarrhea, unspecified Comprehensive Metabolic Profil Today R14.0 - Abdominal distension (gaseous), R19.7 - Diarrhea, unspecified CRP Today R14.0 - Abdominal distension (gaseous), R19.7 - Diarrhea, unspecified Erythrocyte Sed Rate Today R14.0 - Abdominal distension (gaseous), R19.7 - Diarrhea, unspecified LDH Today R14.0 - Abdominal distension (gaseous), R19.7 - Diarrhea, unspecified Immunoglobulins G/A/M/E Today R14.0 - Abdominal distension (gaseous), R19.7 - Diarrhea, unspecified Calprotectin, Stool Today R14.0 - Abdominal distension (gaseous), R19.7 - Diarrhea, unspecified Quantiferon TB-Gold+ Today R14.0 - Abdominal distension (gaseous), R19.7 - Diarrhea, unspecified Stool Lactoferrin/WBC Today K58.9 - Irritable bowel syndrome, unspecified, R14.0 - Abdominal distension (gaseous), R19.7 - Diarrhea, unspecified IBD Expanded Profile Today R14.0 - Abdominal distension (gaseous), R19.7 - Diarrhea, unspecified Allergen, Food Profile 14 Today R14.0 - Abdominal distension (gaseous), R19.7 -Diarrhea, unspecified Celiac Disease Profile Today R14.0 - Abdominal distension (gaseous), R19.7 - Diarrhea, unspecified NEENA Comprehensive Panel Today R14.0 - Abdominal distension (gaseous), R19.7 - Diarrhea, unspecified Gastrin, Serum Today R14.0 - Abdominal distension (gaseous), R19.7 - Diarrhea, unspecified Vitamin B12 Today R14.0 - Abdominal distension (gaseous), R19.7 - Diarrhea, unspecified Magnesium Today R14.0 - Abdominal distension (gaseous), R19.7 - Diarrhea, unspecified Phosphorus Today R14.0 - Abdominal distension (gaseous), R19.7 - Diarrhea, unspecified Pancreatic Elastase, Fecal Today R14.0 - Abdominal distension (gaseous), R19.7 - Diarrhea, unspecified Fecal Fat, Qualitative Today R14.0 - Abdominal distension (gaseous), R19.7 - Diarrhea, unspecified OVA+PARA w/Giardia EIA [id number] Today R14.0 - Abdominal distension (gaseous), R19.7 - Diarrhea, unspecified CDIFF (PCR) Today R14.0 - Abdominal distension (gaseous), R19.7 - Diarrhea, unspecified ENTERIC PATHOGEN PANEL STOOL Today K58.9 - Irritable bowel syndrome, unspecified, R14.0 - Abdominal distension (gaseous), R19.7 - Diarrhea, unspecified Thyroid Stim Hormone (TSH) Today R14.0 - Abdominal distension (gaseous), R19.7 - Diarrhea, unspecified Free T4 Today R14.0 - Abdominal distension (gaseous), R19.7 - Diarrhea, unspecified Free T3 Today R14.0 - Abdominal distension (gaseous), R19.7 - Diarrhea, unspecified 05/09/25 0645 <Electronically signed by Axel Castaneda DO> Cosigner Signature (if applicable): CC: Dr. Trent Velazquez DO; Axel Castaneda DO~ Signed [facility] Work Phone: 1(844) 332-863008-14-2025 Consult note [facility] Medical Records Department [address] [place] [address] Anesthesia Postop Eval I 05/09/25 0756 MR#: [id number] Acct: [id number] Name: MENDOZA JOHNSON Rep #:[id number] : 1975 49 From: Poli Urbina PCP: Dr. Trent Velazquez, DO Status:REG S DC Y Race: C Location: [place] [address] Anesthesia: Postop Eval I Current Vital Signs Temperature: 97 F Pulse Rate: 76 Blood Pressure: 118/72 Respiratory Rate: 16 Pulse Ox: 98 Oxygen Delivery Method: Room Air Assessment Airway patent: Yes Spontaneous unlabored respirations: Yes Mental status: Awake and Calm nausea: No Vomiting: No Anesthesia Complication: No Fluid Hydration Crystalloid volume administer (ml): 700 Total IV fluid infused: 700 Progress Note Anesthesia document: Postop Eval 1 completed: Yes 05/09/25 0757 > Date _ Poli Reyesignmarco Signature: Date CC: ~ Signed [facility]08-14-2025 Procedure note [facility] Medical Records Department [address] [place] [id number] Colonoscopy Report MR#: [id number] Acct: [id number] Name: MENDOZA JOHNSON Rep #:[id number] : 1975 49 From: Axel Castaneda DO PCP: Dr. Trent Velazquez, DO Status:REG S DC Patient Name: Mendoza Johnson Procedure Date: 05/09/2025 7:25 AM Date of : 1975 Age: 49 Procedure: Colonoscopy Indications: Screening for colorectal malignant neoplasm Providers: Axel Castaneda DO Medicines: Monitored Anesthesia Care Patient Profile: This is a 49 year old female. Refer to note in patient chart for documentation of history and physical. Patient has symptoms of acute epigastric abdominal pain. Last Colonoscopy: more than 10 years ago. Complications: No immediate complications. Procedure: Pre-Anesthesia Assessment: - Prior to the procedure, a History and Physical was performed, and patient medications and allergies were reviewed. The patient is competent. The risks and benefits of the procedure and the sedation options and risks were discussed with the patient. All questions were answered and informed consent was obtained. Patient identification and proposed procedure were verified by the physician in the pre-procedure area. Mental Status Examination: alert and oriented. Airway Examination: normal oropharyngeal airway and neck mobility. Respiratory Examination: clear to auscultation. CV Examination: normal. Prophylactic Antibiotics: The patient does not require prophylactic antibiotics. Prior Anticoagulants: The patient has taken no anticoagulant or antiplatelet agents except for NSAID medication. ASA Grade Assessment: III - A patient with severe systemic disease. After reviewing the risks and benefits, the patient was deemed in satisfactory condition to undergo the procedure. The anesthesia plan was to use monitored anesthesia care (MAC). Immediately prior to administration of medications, the patient was re-assessed for adequacy to receive sedatives. The heart rate, respiratory rate, oxygen saturations, blood pressure, adequacy of pulmonary ventilation, and response to care were monitored throughout the procedure. The physical status of the patient was re-assessed after the procedure. After I obtained informed consent, the scope was passed under direct vision. Throughout the procedure, the patient's blood pressure, pulse, and oxygen saturations were monitored continuously. The Colonoscope was introduced through the anus and advanced to the cecum, identified by appendiceal orifice and ileocecal valve. The colonoscopy was performed without difficulty. The patient tolerated the procedure well. The quality of the bowel preparation was adequate. The ileocecal valve, appendiceal orifice, and rectum were photographed. Scope In: 7:27:28 AM Scope Withdrawal Time 0 hours 13 minutes 11 seconds Scope Out: 7:44:54 AM Total Procedure Duration Time 0 hours 17 minutes 26 seconds Findings: The perianal and digital rectal examinations were normal. A few small-mouthed diverticula were found in the recto-sigmoid colon. A 7 mm polyp was found in the rectum. The polyp was sessile. The polyp was removed with a jumbo cold forceps. Resection and retrieval were complete. Verification of patient identification for the specimen was done. Estimated blood loss was minimal. The exam was otherwise without abnormality on direct and retroflexion views. Impression: - Diverticulosis in the recto-sigmoid colon. - One 7 mm polyp in the rectum, removed with a jumbo cold forceps. Resected and retrieved. - The examination was otherwise normal on direct and retroflexion views. Recommendation: - Discharge patient to home. - Resume previous diet. - Continue present medications. - Await pathology results. - Repeat colonoscopy in 5 years for surveillance. Procedure Code(s): --- Professional --- 08435, Colonoscopy, flexible; with biopsy, single or multiple CPT copyright 2021 [employer]. All rights reserved. The codes documented in this report are preliminary and upon wooden shade hardware installer review may be revised to meet current compliance requirements. Axel Castaneda DO 05/09/2025 7:56:20 AM This report has been signed electronically. Number of Addenda: 0 Note Initiated On: 05/09/2025 7:25 AM 05/09/25 0756 Date _ Axel Castaneda DO Cosigner Signature: Date (if indicated) CC: Dr. Trent Velazquez DO; Axel Castaneda DO ~ Date Dictated: 05/09/25724 Date Transcribed: Department Chair: RF Signed [facility]08-14-2025 Procedure note [facility] Medical Records Department [address] [place] [address] Provation Physician Letter MR#: [id number] Acct: [id number] Name: MENDOZA JOHNSON Rep #:[id number] : 1975 49 From: Axel Castaneda DO PCP: Dr. Trent Velazquez DO Status:REG S DC 05/09/2025 [place] [address] Re : Colonoscopy procedure for Mendoza Johnson Dear Dr. Velazquez This procedure was performed on April. My impressions and recommendations are as follows: Impressions : - Diverticulosis in the recto-sigmoid colon. - One 7 mm polyp in the rectum, removed with a jumbo cold forceps. Resected and retrieved. - The examination was otherwise normal on direct and retroflexion views. Recommendations : - Discharge patient to home. - Resume previous diet. - Continue present medications. - Await pathology results. - Repeat colonoscopy in 5 years for surveillance. My findings are described in the full procedure note, which is enclosed. If I can be of further assistance, please feel free to contact me at . Sincerely, Axel Castaneda DO 05/09/2025 7:56:20 AM This report has been signed electronically. 05/09/25 0756 Date _ Axel Castaneda DO Cosigner Signature: Date (if indicated) CC: Dr. Trent Velazquez DO; Axel Castaneda DO ~ Date Dictated: 05/09/25724 Date Transcribed: Department Chair: RF Signed [facility]08-14-2025 Procedure note [facility] Medical Records Department [address] [place] [address] Provation Physician Letter MR#: [id number] Acct: [id number] Name: SADIQ JOHNSONChloé Bliss Rep #:[id number] : 1975 49 From: Axel Castaneda DO PCP: Dr. Trent Vleazquez DO Status:REG S DC 05/09/2025 [place] [address] Re : Upper GI endoscopy procedure for Mendoza Johnson Dear Dr. Velazquez This procedure was performed on April. My impressions and recommendations are as follows: Impressions : - LA Grade B reflux esophagitis with no bleeding. Biopsied. - Erythematous mucosa in the gastric body. Biopsied. - Non-bleeding gastric ulcers with no stigmata of bleeding. Biopsied. - No gross lesions in the entire examined duodenum. Biopsied. Recommendations : - Discharge patient to home. - Resume previous diet. - Continue present medications. - Await pathology results. - Repeat upper endoscopy in 1 year for surveillance. My findings are described in the full procedure note, which is enclosed. If I can be of further assistance, please feel free to contact me at . Sincerely, Axel Castaneda DO 05/09/2025 7:53:12 AM This report has been signed electronically. 05/09/25 0753 Date _ Axel Castaneda DO Cosigner Signature: Date (if indicated) CC: Dr. Trent Velazquez DO; Axel Castaneda DO ~ Date Dictated: 05/09/25710 Date Transcribed: Department Chair: RF Signed [facility]08-14-2025 Procedure note [facility] Medical Records Department [address] [place] [address] EGD Report MR#: [id number] Acct: [id number] Name: MENDOZA JOHNSON Rep #:[id number] : 1975 49 From: Axel Castaneda DO PCP: Dr. Trent Velazquez DO Status:REG S DC Patient Name: Mendoza Johnson Procedure Date: 05/09/2025 7:11 AM Date of : 1975 Age: 49 Procedure: Upper GI endoscopy Indications: Epigastric abdominal pain, Functional Dyspepsia, Heartburn Providers: Axel Castaneda DO Medicines: Monitored Anesthesia Care Patient Profile: This is a 49 year old female. Refer to note in patient chart for documentation of history and physical. Patient has symptoms of acute epigastric abdominal pain. Complications: No immediate complications. Procedure: Pre-Anesthesia Assessment: - Prior to the procedure, a History and Physical was performed, and patient medications and allergies were reviewed. The patient is competent. The risks and benefits of the procedure and the sedation options and risks were discussed with the patient. All questions were answered and informed consent was obtained. Patient identification and proposed procedure were verified by the physician in the pre-procedure area. Mental Status Examination: alert and oriented. Airway Examination: normal oropharyngeal airway and neck mobility. Respiratory Examination: clear to auscultation. CV Examination: normal. Prophylactic Antibiotics: The patient does not require prophylactic antibiotics. Prior Anticoagulants: The patient has taken no anticoagulant or antiplatelet agents except for NSAID medication. ASA Grade Assessment: III - A patient with severe systemic disease. After reviewing the risks and benefits, the patient was deemed in satisfactory condition to undergo the procedure. The anesthesia plan was to use monitored anesthesia care (MAC). Immediately prior to administration of medications, the patient was re-assessed for adequacy to receive sedatives. The heart rate, respiratory rate, oxygen saturations, blood pressure, adequacy of pulmonary ventilation, and response to care were monitored throughout the procedure. The physical status of the patient was re-assessed after the procedure. After obtaining informed consent, the endoscope was passed under direct vision. Throughout the procedure, the patient's blood pressure, pulse, and oxygen saturations were monitored continuously. The Colonoscope was introduced through the mouth, and advanced to the fourth part of the duodenum. Small bowel enteroscopy was deemed necessary. The upper GI endoscopy was accomplished without difficulty. The patient tolerated the procedure well. Scope In: 7:19:17 AM Scope Out: 7:25:44 AM Total Procedure Duration Time 0 hours 6 minutes 27 seconds Findings: LA Grade B (one or more mucosal breaks greater than 5 mm, not extending between the tops of two mucosal folds) esophagitis with no bleeding was found 36 to 40 cm from the incisors. Biopsies were taken with a cold forceps for histology. Verification of patient identification for the specimen was done. Estimated blood loss was minimal. Patchy mildly erythematous mucosa without bleeding was found in the gastric body. Biopsies were taken with a cold forceps for histology. Biopsies were taken with a cold forceps for Helicobacter pylori testing. Verification of patient identification for the specimen was done. Estimated blood loss was minimal. Two non-bleeding cratered gastric ulcers with no stigmata of bleeding were found in the gastric antrum. The largest lesion was 6 mm in largest dimension. Biopsies were taken with a cold forceps for histology. Verification of patient identification for the specimen was done. Biopsies were taken with a cold forceps for Helicobacter pylori testing. Verification of patient identification for the specimen was done. Estimated blood loss was minimal. No gross lesions were noted in the entire examined duodenum. Biopsies were taken with a cold forceps for histology. Verification of patient identification for the specimen was done. Estimated blood loss was minimal. Impression: - LA Grade B reflux esophagitis with no bleeding. Biopsied. - Erythematous mucosa in the gastric body. Biopsied. - Non-bleeding gastric ulcers with no stigmata of bleeding. Biopsied. - No gross lesions in the entire examined duodenum. Biopsied. Recommendation: - Discharge patient to home. - Resume previous diet. - Continue present medications. - Await pathology results. - Repeat upper endoscopy in 1 year for surveillance. Procedure Code(s): --- Professional --- 91600, Small intestinal endoscopy, enteroscopy beyond second portion of duodenum, not including ileum; with biopsy, single or multiple CPT copyright 2021 [employer]. All rights reserved. The codes documented in this report are preliminary and upon wooden shade hardware installer review may be revised to meet current compliance requirements. Axel Castaneda DO 05/09/2025 7:53:12 AM This report has been signed electronically. Number of Addenda: 0 Note Initiated On: 05/09/2025 7:11 AM 05/09/25 0753 Date _ Axel Castaneda DO Cosigner Signature: Date (if indicated) CC: Dr. Trent Velazquez DO; Axel Castaneda DO ~ Date Dictated: 05/09/25710 Date Transcribed: Department Chair: RF Signed [facility]08-14-2025 Consult note [facility] Medical Records Department [address] [place] [address] Pre-Anesthesia Evaluation 05/09/25 0654 MR#: [id number] Acct: [id number] Name: MENDOZA JOHNSON Rep #:[id number] : 1975 49 From: Tarun Jimenez MD PCP: Dr. Trent Velazquez DO Status:REG S DC Y Race: C Location: [place] [address]1 ASA Classification* ASA Classification ASA Classification: 2 Assessment & Plan Anesthesia* Anesthesia Assessment Anesthesia Assessment: Discussed sedation and/or anesthesia options, risks, benefits, and alternatives with patient/parents/legal guardian/POA. Questions invited. The patient/parents/legal guardian/POA seems to understand and agrees to proceedwith anesthesia plan. Reviewed the physical assessment, medical history, allergy history and patient home medications list prior to surgery/procedure/anesthetic and documented any changes. Performed airway and anesthesia risk assessments. Anesthesia Type Anesthesia Type: MAC History Source History Obtained from:: Patient and Chart Anesthesia Focused Assessment* Temperature: 97.6 F Pulse Rate: 72 Blood Pressure: 130/81 Respiratory Rate: 16 Pulse Ox: 96 Oxygen Delivery Method: Room Air Airway Assessment Mouth opens: >3 cm Mallampati Score: I Teeth Condition: Intact Neck Range of motion (ROM): Full ROM Labs Anesthesia Preop lab: CBC WBC 8.3 K/mm3 (4.4-11.0) 05/02/25 07:05/02/25 RBC 4.49 M/mm3 (4.2-5.4) 05/02/25 07:24 05/02/25 Hgb 13.0 g/dL (12.0-15.0) 05/02/25 07:24 05/02/25 Hct 39.4 % (37-47) 05/02/25 07:24 05/02/25 Plt Count 277 K/mm3 (150-450) 05/02/25 07:24 05/02/25 CHEMISTRY Potassium 4.0 mmol/L (3.3-5.1) 05/02/25 07:24 05/02/25 Sodium 139 mmol/L (133-145) 05/02/25 07:24 05/02/25 Magnesium 2.0 mg/dL (1.5-2.2) 05/02/25 07:05/02/25 Phosphorus 3.2 mg/dL (2.7-4.5) 05/02/25 07:24 05/02/25 BUN 15 mg/dL (4-19) 05/02/25 07:24 05/02/25 Creatinine 0.76 mg/dL (0.70-1.20) 05/02/25 07:24 05/02/25 Glucose 98 mg/dL (70-99) 05/02/25 07:24 05/02/25 TSH 1.070 uIU/mL (0.300-4.200) 05/02/25 07:24 0804/19 COAG Urine Test Negative Negative 05/09/25 06:15 05/09/25 Pre-Assessment Diagnosis/Proposed Procedure Planned Operative Procedure(s): Colonoscopy,EGD Anesthesia History Anesthesia History - pack changer: Anesthesia History - pack changer Hx Hospitalization No 05/08/25 08:39 Any Problems With Anesthesia No 05/08/25 08:39 Cholinesterase deficiency No 05/08/25 08:39 You/Your Family Experience No 05/08/25 08:39 fever (hyperthermia) with Relationship Recent Exposure to Contagious No 05/09/25 06:35 Disease Does patient have nerve No 05/08/25 08:39 stimulator Patient instructed to have device shut off --Does patient have Pacemaker No 05/09/25 06:35 or ICD? When Was Last Pacemaker Check QUESTION #4 FULL TEXT: You/Your Family Experience fever (hyperthermia) with Anesthesia Last Oral Intake Last Oral intake: Last Oral Intake NPO since 03:00 05/09/25 06:35 Meds taken in AM with sips of No 05/09/25 06:35 water? Meds patient instructed to take am of surgery Any additional information?: Yes NPO since: 03:00 (Patient finished prep at 3 AM.) Meds taken in AMwith sips of water?: No PONV PONV - pack changer: PONV - pack changer Female Yes 05/08/25 08:39 HX of Motion Sickness No 05/08/25 08:39 HX of N/V After Surgery No 05/08/25 08:39 Non-Smoker Yes 05/08/25 08:39 Duration of Surgery greater No 05/08/25 08:39 than 60 minutes Number of Risk Factors 2 05/08/25 08:39 PONV Score Moderate Risk 05/08/25 08:39 Height & Weight Height & Weight: Anesthesia: Height & Weight Height 5 ft 6 in 05/09/25 06:35 Weight: 103.1 kg 05/09/25 06:35 Body Mass Index (BMI) 36.6 05/09/25 06:35 Respiratory Assessment Respiratory Assessment - pack changer: Respiratory Tract Infection Hx - pack changer Hx Respiratory Tract Infection No 05/08/25 08:39 STOP Sleep Apnea STOP Sleep Apnea - pack changer: STOP Sleep Apnea - pack changer Hx Hypertension No 05/08/25 08:39 Hx Sleep Apnea Yes 05/08/25 08:39 CPAP Yes 05/08/25 08:39 BIPAP No 05/08/25 08:39 Do you snore loudly (louder No 05/08/25 08:39 than talking or can be heard Do you often feel tired/ No 05/08/25 08:39 fatigued/ sleepy during daytime? Has anyone observed you stop No 05/08/25 08:39 breathing during sleep? STOP Results Positive 05/08/25 08:39 QUESTION #5 FULL TEXT : Do you snore loudly (louder than talking or can be heard through closeddoors)? 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 Specify any problems Hx of Preganancy in last 3 No 05/08/25 08:39 Months Nurse Filling Out Transfusion VCHRISTIN 05/08/25 08:39 & Questions: Date: 05/08/25 05/08/25 08:39 Time: 08:40 05/08/25 08:39 Patient unable to answer at this time (ie. confused, unrespo /Reproduction History /Reproductive History - pack changer: /Reproductive Hx- pack changer Hx Now No 05/08/25 08:39 Gestational Age (in weeks): EDC: Hx Hx Para Hx Section SAB No 05/08/25 08:39 Active Medications Active Medications: Current Medications Generic Name Dose Route Start Last Admin Trade Name Freq PRN Reason Stop Dose Admin Lactated Ringer's 1,000 mls @ 15 mls/hr 05/09/25 06:15 05/09/25 06:38 IV 15 mls/hr .Q48H FELISA Administration PFSH Medical History Wears contact lenses Wears glasses Anxiety Depression Alcohol use Thyroid disease Back pain Gastric reflux Non-smoker CPAP (continuous positive airway pressure) dependence Sleep apnea Arthritis IBS (irritable bowel syndrome) History of palpitations Allergic dermatitis Hypothyroidism Osteoporosis Hypertension Home Medications ?Medication ?Instructions ?Recorded ?Last Taken ?Type escitalopram oxalate 10 mg tablet 10 mg PO DAILY 04/2805/08/25 History lisinopril 20 mg tablet 20 mg PO DAILY 04/28/2304/26 History Lactobacillus acidophilus 10 100 mmu cells PO DAILY 05/08/25 History billion cell capsule (NewFlora) cetirizine 10 mg tablet (24Hour 10 mg PO DAILY 5 05/08/25 History Allergy) thyroid (pork) 60 mg tablet 60 mg PO DAILY 05/08/25 History ([place] Thyroid) Allergy/AdvReac Type Severity Reaction Status Date / Time No Known Allergies Allergy Verified 05/09/25 06:34 Surgical History Hx of colonoscopy Hx of tonsillectomy History of appendectomy Social History household members: spouse Smoking Status: Never smoker alcohol intake: current alcohol intake frequency: holidays/special occasions only substance use type: does not use Review of Systems (Anesthesia) ROS Narrative System reviewed and no additional complaints, except as documented. 05/09/25 0658 frank VIERA> Date _ Tarun Jimenez MD Cosigner Signature: Date CC: ~ Signed [facility]08-14-2025 History and physical note [facility] Medical Records Department [address] [place] [address] History & Physical Exam 05/09/25 0643 MR#: [id number] Acct: [id number] Name: MENDOZA JOHNSON Rep #:[id number] : 1975 49 From: Axel Friend PCP: Dr. Trent Velazquez, DO Status:REG S DC Location: [place] [address] HPI - General General Date of Admission: 05/09/25 Date of Service: 05/09/25 Chief Complaint: Abdominal pain, bloating and diarrhea HPI Narrative MENDOZA JOHNSON, is a 49 F who presents for the evaluation of abdominal pain, bloating and diarrhea. She reports with long history of what she describes as IBS symptoms. Pt reports she will eat, her stomach will hurt, and then she will have diarrhea. Pt reportsit does not seem to matter what she haseaten. Reports she has cut out gluten before [...] her last colonoscopy was 10+ years ago. [facility] Medical History Wears contact lenses Wears glasses Anxiety Depression Alcohol use Thyroid disease Back pain Gastric reflux Non-smoker CPAP (continuous positive airway pressure) dependence Sleep apnea Arthritis IBS (irritable bowel syndrome) History of palpitations Allergic dermatitis Hypothyroidism Osteoporosis Hypertension Home Medications ?Medication ?Instructions ?Recorded ?Last Taken ?Type escitalopram oxalate 10 mg tablet 10 mg PO DAILY 04/2805/08/25 History lisinopril 20 mg tablet 20 mg PO DAILY 04/28/2304/26 History Lactobacillus acidophilus 10 100 mmu cells PO DAILY 05/08/25 History billion cell capsule (NewFlora) cetirizine 10 mg tablet (24Hour 10 mg PO DAILY 5 05/08/25 History Allergy) thyroid (pork) 60 mg tablet 60 mg PO DAILY 05/08/25 History ([place] Thyroid) Allergy/AdvReac Type Severity Reaction Status Date / Time No Known Allergies Allergy Verified 05/09/25 06:34 Surgical History Hx of colonoscopy Hx of tonsillectomy History of appendectomy Social History household members: spouse Smoking Status: Never smoker alcohol intake: current alcohol intake frequency: holidays/special occasions only substance use type: does not use ROS Constitutional Constitutional: Denies fatigue, fever(s), poor appetite, weight gain or weight loss Gastrointestinal Gastrointestinal: Denies belching, bloating, change in bowel habits, change in stool character, chewing difficulty, coffee ground emesis, constipation, cramping, diarrhea, dyspepsia, dysphagia, earlysatiety, excessive flatus, fecalincontinence, heartburn, hematemesis, hematochezia, hemorrhoids, loose stools, melena, nausea, odynophagia, rectal bleeding, tenesmus, vomiting or weight changes Vital Signs Vital Signs Vital Signs: 05/09/25 06:35 05/09/25 06:35 Temperature 97.6 F L Temperature Source Temporal Pulse Rate 72 Respiratory Rate 16 Respiratory Pattern Normal Blood Pressure 130/81 H Blood Pressure Mean 97 Blood Pressure Source Monitor Blood Pressure Position Semi-Fowlers Blood Pressure Location Right Arm Pulse Ox 96 Oxygen Delivery Method Room Air Weight Weight: 227 lb 4.745 oz Body Mass Index (BMI) 36.6 Physical Exam Const alert, oriented x3, no apparent distress and healthy appearing General Appearance: cooperative GI normal to inspection, nondistended, normoactive bowel sounds, soft to palpation,non-tender and non-distended Percussion: normal to percussion Rectal Exam: deferred Results Lab / Micro Data Labs: Laboratory Results - last 24 hr 05/09/25 06:15: Urine Test Negative Assessment & Plan Assessment/Plan (1) Bloating: (2) Diarrhea: PLAN: Assessment and Plan Assessment and Plan (1) Diarrhea: Status: Acute (2) Bloating: Status: Acute Plan: This is a very pleasant 49-year-old with past medical history of mild depression, hypertension who arrives here for evaluation of abdominal pain, bloating and diarrhea. Patient says this has been going on for multiple years. She did see Dr. Prashant Ortiz in the past in which she underwent a colonoscopy itwas possibly diagnosed with ulcerative proctitis. She saw a baby nurse probably 15 years ago who had placed her on Asacol and she actually did pretty well on the medicine but was lost tofollow-up. She has been getting an intermittent rash on her abdomen and extremities with associated joint swelling and stiffness of her hands wrists and knees. She saw a insurance claims adjuster down to [facility] and here in town and was diagnosed with chronic inflammation of the joints. She does not note aspecificdiagnosis. She again was lost to follow-up. She comes in today because her bloating and abdominal pain is getting a little bit worse along with frequent diarrhea. Her weight has been stable. She denies any night sweats. She deniedany travel. She does not have well water. She has not had anychange in medicines. Assessment: - Diarrhea-differential diagnosis does include inflammatory bowel disease, microscopic colitis, collagenous colitis, lymphocytic colitis. It also includesbut less likely neuroendocrine associated diarrhea, celiac disease. We also discussed the possibility of IBS with diarrhea and pancreatic insufficiency which is also on the differential diagnosis. Plan: She will undergo an upper or lower endoscopy to evaluate upper lower GI tract. We will also do biochemical workup and stool testing. She may need imaging in the future. She okay with this plan. She was explained alternatives, risk and benefits include not withstanding bleeding, infection, subsequent perforation, need for urgent . She will have an ASA of 3. Orders: Orders HARDIK + Protein Elect, Serum Today R14.0 - Abdominal distension (gaseous), R19.7 - Diarrhea, unspecified CBC W/Diff, Automated Today R14.0 - Abdominal distension (gaseous), R19.7 - Diarrhea, unspecified Ferritin Today R14.0 - Abdominal distension (gaseous), R19.7 - Diarrhea, unspecified ANCA Today R14.0 - Abdominal distension (gaseous), R19.7 - Diarrhea, unspecified Comprehensive Metabolic Profil Today R14.0 - Abdominal distension (gaseous), R19.7 - Diarrhea, unspecified CRP Today R14.0 - Abdominal distension (gaseous), R19.7 - Diarrhea, unspecified Erythrocyte Sed Rate Today R14.0 - Abdominal distension (gaseous), R19.7 - Diarrhea, unspecified LDH Today R14.0 - Abdominal distension (gaseous), R19.7 - Diarrhea, unspecified Immunoglobulins G/A/M/E Today R14.0 - Abdominal distension (gaseous), R19.7 - Diarrhea, unspecified Calprotectin, Stool Today R14.0 - Abdominal distension (gaseous), R19.7 - Diarrhea, unspecified Quantiferon TB-Gold+ Today R14.0 - Abdominal distension (gaseous), R19.7 - Diarrhea, unspecified Stool Lactoferrin/WBC Today K58.9 - Irritable bowel syndrome, unspecified, R14.0 - Abdominal distension (gaseous), R19.7 - Diarrhea, unspecified IBD Expanded Profile Today R14.0 - Abdominal distension (gaseous), R19.7 - Diarrhea, unspecified Allergen, Food Profile 14 Today R14.0 - Abdominal distension (gaseous), R19.7 - Diarrhea, unspecified Celiac Disease Profile Today R14.0 - Abdominal distension (gaseous), R19.7 - Diarrhea, unspecified NEENA Comprehensive Panel Today R14.0 - Abdominal distension (gaseous), R19.7 - Diarrhea, unspecified Gastrin, Serum Today R14.0 - Abdominal distension (gaseous), R19.7 - Diarrhea, unspecified Vitamin B12 Today R14.0 - Abdominal distension (gaseous), R19.7 - Diarrhea, unspecified Magnesium Today R14.0 - Abdominal distension (gaseous), R19.7 - Diarrhea, unspecified Phosphorus Today R14.0 - Abdominal distension (gaseous), R19.7 - Diarrhea, unspecified Pancreatic Elastase, Fecal Today R14.0 - Abdominal distension (gaseous), R19.7 - Diarrhea, unspecified Fecal Fat, Qualitative Today R14.0 - Abdominal distension (gaseous), R19.7 - Diarrhea, unspecified OVA+PARA w/Giardia EIA [id number] Today R14.0 - Abdominal distension (gaseous), R19.7 - Diarrhea, unspecified CDIFF (PCR) Today R14.0 - Abdominal distension (gaseous), R19.7 - Diarrhea, unspecified ENTERIC PATHOGEN PANEL STOOL Today K58.9 - Irritable bowel syndrome, unspecified, R14.0 - Abdominaldistension (gaseous), R19.7 - Diarrhea, unspecified Thyroid Stim Hormone (TSH) Today R14.0 - Abdominal distension (gaseous), R19.7 - Diarrhea, unspecified Free T4 Today R14.0 - Abdominal distension (gaseous), R19.7 - Diarrhea, unspecified Free T3 Today R14.0 - Abdominal distension (gaseous), R19.7 - Diarrhea, unspecified 05/09/25 0645 Cosigner Signature (if applicable): CC: Dr. Trent Velazquez DO; Axel Castaneda DO~ Signed [facility]08-14-2025 [facility] Medical Records Department [address] [place] [address] History Physical Exam 05/09/25 0643 MR#: [id number] Acct: [id number] Name: MENDOZA JOHNSON Rep #: [id number] : 1975 49 From: Axel Castnaeda DO PCP: Dr. Trent Velazquez DO Status:REG [facility] [place] Location: [place] [address] HPI - General General Date of Admission: 05/09/25 Date of Service: 05/09/25 Chief Complaint: Abdominal pain, bloating and diarrhea HPI Narrative MENDOZA JOHNSON, is a 49 F who presents for the evaluation of abdominal pain, bloating and diarrhea. She reports with long history of what she [...] her last colonoscopy was 10+ years ago. [facility] Medical History Wears contact lenses Wears glasses Anxiety Depression Alcohol use Thyroid disease Back pain Gastric reflux Non-smoker CPAP (continuous positive airway pressure) dependence Sleep apnea Arthritis IBS (irritable bowel syndrome) History of palpitations Allergic dermatitis Hypothyroidism Osteoporosis Hypertension Home Medications ???Medication ???Instructions ???Recorded ???Last Taken ???Type escitalopram oxalate 10 mg tablet 10 mg PO DAILY 04/28/23 05/08/25 History lisinopril 20 mg tablet 20 mg PO DAILY 04/28/23 05/08/25 H istory Lactobacillus acidophilus 10 100 mmu cells PO DAILY 05/08/25 History billion cell capsule (NewFlora) cetirizine 10 mg tablet (24Hour 10 mg PO DAILY 05/08/25 05/08/25 H istory Allergy) thyroid (pork) 60 mg tablet 60 mg PO DAILY 05/08/25 05/08/25 H istory ([place] Thyroid) Allergy/AdvReac Type Severity Reaction Status Date / Time No Known Allergies Allergy Verified 05/09/25 06:34 Surgical History Hx of colonoscopy Hx of tonsillectomy History of appendectomy Social History household members: spouse Smoking Status: Never smoker alcohol intake: current alcohol intake frequency: holidays/special occasions only substance use type: does not use ROS Constitutional Constitutional: Denies fatigue, fever(s), poor appetite, weight gain or weight loss Gastrointestinal Gastrointestinal: Denies belching, bloating, change in bowel habits, change in stool character, chewing difficulty, coffee ground emesis, constipation, cramping, diarrhea, dyspepsia, dysphagia, early satiety, excessive flatus, fecal incontinence, heartburn, hematemesis, hematochezia, hemorrhoids, loose stools, melena, nausea, odynophagia, rectal bleeding, tenesmus, vomiting or weight changes Vital Signs Vital Signs Vital Signs: 05/09/25 06:35 05/09/25 06:35 Temperature 97.6 F L Temperature Source Temporal Pulse Rate 72 Respiratory Rate 16 Respiratory Pattern Normal Blood Pressure 130/81 H Blood Pressure Mean 97 Blood Pressure Source Monitor Blood Pressure Position Semi-Fowlers Blood Pressure Location Right Arm Pulse Ox 96 Oxygen Delivery Method Room Air Weight Weight: 227 lb 4.745 oz Body Mass Index (BMI) 36.6 Physical Exam Const alert, oriented x3, no apparent distress and healthy appearing General Appearance: cooperative GI normal to inspection, nondistended, normoactive bowel sounds, soft to palpation, non-tender and non- distended Percussion: normal to percussion Rectal Exam: deferred Results Lab / Micro Data Labs: Laboratory Results - last 24 hr 05/09/25 06:15: Urine Test Negative Assessment Plan Assessment/Plan (1) Bloating: (2) Diarrhea: PLAN: Assessment and Plan Assessment and Plan (1) Diarrhea: Status: Acute (2) Bloating: Status: Acute Plan: This is a very pleasant 49-year-old with past medical history of mild depression, hypertension who arrives here for evaluation of abdominal pain, bloating and diarrhea. Patient says this has been going on for multiple years. She did see Dr. 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 She saw a baby nurse probably 15 years ago who had placed her on Asacol and she actually did pretty well on the medicine but was lost to follow-up. She has been getting an inte (more content not included)...[facility]07-21-2025 Evaluation note* Diagnosis Onset Date Resolution Status Admit Date Bloating acute April 15 8:32am Diarrhea acute April 15 8:32am Bloating acute May 09, 2 025 6:03am Diarrhea acute May 09, 2 025 6:03am [facility] Work Phone: 1(887) 634-111504-14-2025 Evaluation note* Diagnosis Onset Date Resolution Status Admit Date Allergic dermatitis acute January 07, 2025 6:54am History of palpitations acute A pril 2024 6:54am Bloating acute April 15 8:32am Diarrhea acute April 15 8:32am [facility] Work Phone: 1(462) 769-507309-19-2024 History of Present illness Narrative* Eliz Hill, PT - 06/14/2024 10:01 AM EDT Program_ID:[id number] Access Code: [email or web address] URL: [email or web address] Date: 06-14-2024 Prepared By: Eliz Hill Program Notes Exercises - cc MSI UE [...] 3-4 sets - 15 reps * Eliz Hill, PT - 06/14/2024 9:27 AM EDT Episode Visit Count: 9 Therapist That Will Accept/Oversee The Plan Of Care: Eliz Hill Start of Care Date: 03/27/24 Onset Date: [...] 06/14/2024 and treatment included: Therapeutic exercise and Self-assisted management. Goals for Episode of Care: created on 03/27/24 through 05/22/24 Goals updated on 05/15/2024 through 06/26/24 Goals updated on 06/14/2024. [facility] in home exercise program. -- MET Patient [...] 926 Session Stop Time : 1006 Eliz Hill PTW [facility] History of Present illness Narrative* Eliz Hill PT - 06/01/2024 9:31 AM EDT Episode Visit Count: 8 Therapist That Will Accept/Oversee The Plan Of Care: Eliz Hill Start of Care Date: 03/27/24 Onset Date: [...] 929 Session Stop Time : 1009 Farrah AlbertCECILIA santos PT documented in this encounter[facility]08-27-2024 History of Present illness Narrative* Eliz Hill, PT - 05/22/2024 2:54 PM EDT Episode Visit Count: 7 Therapist That Will Accept/Oversee The Plan Of Care: Eliz Hill Start of Care Date: 03/27/24 Onset Date: [...] 1454 Session Stop Time : 1534 Eliz Hill PT [facility] this [facility]08-20-2024 History of Present illness Narrative* Eliz Hill PT - 05/15/2024 3:24 PM EDT Program_ID:[id number] Access Code: [email or web address] URL: [email or web address] Date: 05-15-2024 Prepared By: Eliz Hill Program Notes Exercises - Seated Shoulder Shrug [...] 4 sets - 8-10 reps * Eliz Hill PT - 05/15/2024 2:55 PM EDT Episode Visit Count: 6 Therapist That Will Accept/Oversee The Plan Of Care: Eliz Hill Start of Care Date: 03/27/24 Onset Date: [...] 05/22/24 Goals updated on 05/15/2024 through 06/26/24 [facility] in home exercise program. -- MET Patient [...] Patient to be seen for Gait Training (50785), Self-assisted management (57413), Therapeutic activities (56516), Manual therapy (29386), Therapeutic exercise (18741), Neuromuscular re-education (99343) PLAN FOR NEXT VISIT: assess symptom response with scapular stabilization using theraband resistance SUBJECTIVE: Pt. reports improvement with using a computer mouse. 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 Pain is in the anterior R shoulder. [...] pink band 3: *Access Code: [email or web address] URL: [email or web address] Date: 05/15/2024 Prepared by: Eliz Schmid Exercises [...] 1458 Session Stop Time : 1536 Eliz Hill PT documented [facility] this [facility]08-13-2024 History of Present illness Narrative* Eliz Hill PT - 05/08/2024 3:33 PM EDT Episode Visit Count: 5 Therapist That Will Accept/Oversee The Plan Of Care: Eliz Hill Start of Care Date: 03/27/24 Onset Date: [...] shoulder is sore today. Works as a senior sql [employer] dba and her shoulder is sore. Pain: Pain [...] 1611 CECILIA Dumas PT documented in this encounterMer[facility]08-06-2024 History of Present illness Narrative* Farrah Zepeda PTA - 05/01/2024 4:00 PM EDT Program_ID:[id number] Access Code: [email or web address] URL: [email or web address] Date: 05-01-2024 Prepared By: Eliz Hill Program Notes Exercises - Seated Scapular Retraction [...] 2 sets - 10 reps * Sterling Yanes, PT - 05/01/2024 3:31 PM EDT Episode Visit Count: 4 Therapist That Will Accept/Oversee The Plan Of Care: Eliz Hill Start of Care Date: 03/27/24 Onset Date: [...] 1601 CECILIA Dumas PT documented in this [facility]07-16-2024 History of Present illness Narrative* Eliz Hill, PT - 04/10/2024 2:43 PM EDT Episode Visit Count: 3 Therapist That Will Accept/Oversee The Plan Of Care: Eliz Hill Start of Care Date: 03/27/24 Onset Date: [...] 1442 Session Stop Time : 1516 CECILIA Dumas PT documented in this encounterMer[facility]07-10-2024 History of Present illness Narrative* Albino Palafox PT, DPT - 04/04/2024 4:23 PM EDT Program_ID:[id number] Access Code: [email or web address] URL: [email or web address] Date: 04-04-2024 Prepared By: Eliz Hill Program Notes Exercises - Seated Scapular Retraction [...] - 2-3 sets - 10 reps * Albino Palafox PT, DPT - 04/04/2024 3:51 PM EDT Episode Visit Count: 2 Therapist That Will Accept/Oversee The Plan Of Care: Eliz Hill Start of Care Date: 03/27/24 Onset Date: [...] : 1549 Session Stop Time : 1626 Albino Palafox PT, DPT documented in this [facility]Mer[facility]07-02-2024 History of Present illness Narrative* Eliz Hill, PT - 03/27/2024 4:05 PM EDT Program_ID:[id number] Access Code: [email or web address] URL: [email or web address] Date: 03-27-2024 Prepared By: Eliz Hill Program Notes Exercises - Seated Scapular Retraction [...] 2-3 sets - 10 reps * Eliz Hill, PT - 03/27/2024 3:46 PM EDT Images from the original note were not included. Episode Visit Count: 1 Therapist That Will Accept/Oversee The Plan Of Care: Eliz Hill Start of Care Date: 03/27/24 Onset Date: [...] of Care: created on 03/27/24 through 05/22/24 Steen in home exercise program. 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 Patient education as noted. Self-Mcc Management: 1: advised progressing AAROM only within [...] 1540 Session Stop Time : [address] PT documented in this encounterMercy Health06-14-2024 History of Present illness Narrative* ConleyDa sanchez DO - 03/09/2024 1:13 PM EDTAssociated Order(s): Minimally Invasive Tenotomy; Large Joint Arthro/Inj: R subacromial bursa Post-Procedure Diagnose(s): Calcific tendinitis of right shoulder Minimally Invasive Tenotomy Informed Consent Consent Obtained: Verbal Onset Protocol A moment to CARE was completed. [...] subacromial bursa Informed Consent Consent Obtained: Verbal Onset Protocol A moment to CARE was completed. [...] Plan of Care Visit completed when applicable Da Conley DO documented in this encounterMercy Health06-14-2024 Instructions* Patient Instructions* Da Conley DO - 03/09/2024 9:24 AM EDT Follow-up with me in 6 weeks, can be virtual Follow-up with PT in 2-3 weeks documented in this encounterMercy Health05-29-2024 Telephone encounter Note * Telephone Encounter - Da Conley DO - 02/22/2024 4:46 PM EDT This was discussed, and I did not send the medication. I have now sent the Rx to the pharmacy. Da Conley DO [facility]05-29-[facility]24 Miscellaneous Notes* Telephone Encounter - Da Conley DO - 02/22/2024 4:46 PM EDT This was discussed, and I did not send the medication. I have now sent the Rx to the pharmacy. Da Conley DO * Telephone Encounter - Bethany Da Silva - 02/22/2024 4:28 PM EDT Mendoza is calling Da Conley DO today with concern regarding medication. Patient [...] calling: self Call patient at: at home [phone] (home) [phone] (cell) Was an appointment scheduled: No Closing statement: Symptom Call: Thank you for calling [facility], your call is very important. A nurse will call in approximately 2-4 hours during business hours. If this is an emergency, please contact 911. Bethany العلي documented in this encounterMercy Health05-29-2024 Telephone encounter Note * Telephone Encounter - Bethany Da Silva - 02/22/2024 4:28 PM EDT Mendoza is calling Da Conley DO today with concern regarding medication. Patient [...] calling: self Call patient at: at home [phone] (home) [phone] (cell) Was an appointment scheduled: No Closing statement: Symptom Call: Thank you for calling [facility], your call is very important. A nurse will call in approximately 2-4 hours during business hours. If this is an emergency, please contact 911. Bethany العلي [facility]05-29-[facility] History of Present illness Narrative* Da Conley DO - 02/22/2024 10:45 AM EDT Images [...] results and radiologist's interpretation, available in the [facility] health record. Images were reviewed with the [...] The patient will be enrolled in shoulder manager intensive care to assist in preparation for procedure. Verbal health education was given to patient. Patient verbalizes understanding and agrees with the treatment plan as detailed above. Da Conley DO documented in this encounterMercy Health05-15-2024 Telephone encounter Note * Telephone Encounter - Shala Saldana - 02/08/2024 1:09 PM EDT Patient has been scheduled for their MSK US exam on 02/23/24 : 2:25 PM at [facility]. [facility]05-15-2024 Miscellaneous Notes* Telephone Encounter - Shala Saldana - 02/08/2024 1:09 PM EDT Patient has been scheduled for their MSK US exam on 02/23/24 : 2:25 PM at [facility]. * Telephone Encounter - Karin English PCNA - 02/08/2024 12:29 PM EDT Visit [...] locations. Slot held: N/A documented in this encounterMercy Health05-15-2024 Telephone encounter Note * Telephone Encounter - Monica Natarajan - 02/08/2024 12:59 PM EDT Patient returned phone call and appointment has been scheduled with Dr. Conley on 02/22/24. [facility]-15-[facility]24 Miscellaneous Notes* Telephone Encounter - Monica Natarajan - 02/08/2024 12:59 PM EDT Patient returned phone call and appointment has been scheduled with Dr. Conley on 02/22/24. * Telephone Encounter - Monica Natarajan - 02/08/2024 12:00 PM EDT Attempted to contact patient to schedule an appointment with Dr. Conley or Dr. Fregoso to discuss treatment options for right shoulder. Left voicemail with my direct phone number. documented in this encounterMercy Health05-15-2024 Telephone encounter Note * Telephone Encounter - Karin English PCNA - 02/08/2024 12:29 PM EDT Visit [...] of our three locations. Slot held: N/A [facility]-15-[facility]24 Telephone encounter Note* Telephone Encounter - Monica Natarajan - 02/08/2024 12:00 PM EDT Attempted to contact patient to schedule an appointment with Dr. Conley or Dr. Fregoso to discuss treatment options for right shoulder. Left voicemail with my direct phone number. [facility]05-15-[facility]24 History of Present illness Narrative* Benjamin Patel MD - 02/08/2024 11:43 AM EDT [facility] Department of Orthopedics Benjamin Patel MD FACS 48-year-old female here today regarding [...] to go to the emergency department in [place] Current Outpatient Medications Medication Sig oxyCODONE-acetaminophen (PERCOCET) [...] patient to either Dr. Fregoso or Dr. Conley in the [place] area. At the conclusion of the office visit, the patient was asked if they had any questions regarding the diagnosis or care. Also, ample time was provided for the patient to ask any questions regarding the diagnosis therefore plan of care. All the patient's questions if asked were answered to their satisfaction. This note was partially generated using [employer] voice recognition system and as such may contain grammatical or word errors Benjamin Patel MD documented in this encounterMercy Health05-15-2024 History of Present illness Narrative* Lizz Dorsey [...] PATIENT PRESENTS WITH AN IMPLANTABLE OR ATTACHED SHOE RECONDITIONER: No RADIOLOGY DEPARTMENT: General X-ray: Exam(s) Completed: Upper Extremity X- Ray(s): Shoulder, AP / TRUE AP / AXILLARY right PERIPHERAL IV DATA: Not applicable SIGNED BY: RT Jenifer(R) February 08, 2024 10:11 AM documented in this encounterMercy Health03-28-2024 History of Present illness Narrative* Gay Kaba RT(R) - 12/22/2023 9:20 AM EDT Radiology [...] PATIENT PRESENTS WITH AN IMPLANTABLE OR ATTACHED SHOE RECONDITIONER: No RADIOLOGY DEPARTMENT: General X-ray: Exam(s) Completed: Chest X-Ray PERIPHERAL IV DATA: Not applicable SIGNED BY: RT Law(R) December 22, 2023 9:20 AM documented in this encounterMercy Health11-29-2023 Discharge summary Author Griselda Stewart [facility] August 24, 2023 11:05pm Note Date/Time August 24, 2023 8:58pm [facility] Medical Records Department [address] [place] [address] Emergency Department Summary 08/24/23 MR#: [id number] Acct: [id number] Name: MENDOZA JOHNSON Rep #:[id number] : 1975 48 From: Griselda Stewart DO [...] a 6 or 7 out of 10. [facility] Medical History (Updated 08/24/23 @ 23:02 by [...] as well as Bentyl and a few Cement for severe pain. Advised to returnif worsening [...] % (Auto) 69.9 Lymph % (Auto) 20.7 [place] % (Auto) 7.0 Eos % (Auto) 1.6 [...] Sl. Cloudy Urine pH 5.0 Ur Specific Gardner 1.025 Urine Protein Negative Urine Glucose (UA) [...] your Primary Care Provider. Call [facility] ([phone]) or report to the closest Emergency Room. Call 911 if necessary. 08/24/23 3954 <Electronically signed by Griselda Stewart DO> Cosigner Signature (if applicable): CC: Dr. Trent Velazquez DO ~ Signed [facility] Work Phone: 1(862) 821-821708-03-2023 Discharge summary Author Bo Young [facility] April 28, 2023 9:16am Note Date/Time April 28, 2023 7:1 2am [facility] Medical Records Department [address] [place] [address] Emergency Department Summary 04/28/23 MR#: [id number] Acct: [id number] Name: MENDOZA JOHNSON Rep #:[id number] : 1975 47 From: Bo Young MD [...] heartbeat lasted for a couple hours) Quality: Dahlgren heartbeat Location: Chest Current Severity: Still does [...] Prior similar symptoms: No Recent Ill[facility] Medical History Hypertension Home Medications Cetirizine [...] follows: Interpretation: Sinus Rhythm (Rate is 65. [place] interval is 150 ms. Cures duration 84 ms. QT duration 404 ms. [place] is normal. There is a premature ventricular [...] your Primary Care Provider. Call [facility] ([phone]) or report to the closest Emergency Room. Call 911 if necessary. 04/28/23 0916 <Electronically signed by Bo Young MD> Cosigner Signature (if applicable): CC: Dr. Trent Velazquez, DO ~ Signed [facility] Work Phone: 1(800) 588-375306-15-2023 Miscellaneous Notes* Telephone Encounter - Yang Nieves [...] 90 days to now be sent to [facility]. Pharm updated. Call pt only if problem in refilling. Pt is out of her lisinopril. Carlos Turner LPN documented in this encounterMercy Health05-04-2023 Instructions* Patient Instructions* Dania Church APRN.GOLF PLAYER ASSISTANT - 01/27/2023 5:29 PM EDT Start augmentin Follow up if no improvement in 7 days documented in this encounterMercy Health05-04-2023 History of Present illness Narrative* Dania Church [...] - Continue tylenol and ibuprofen Dania Church APRN.GOLF PLAYER ASSISTANT documented in this encounterMercy Health12-15-2022 History of Present illness Narrative* Lucina Wang APRN.CNP - 09/09/2022 2:26 PM EST Annealing Operator offered: Patient declines. Mendoza Johnson presents today [...] which included preparing to see the patient, eejq-or-vviv patient care, completing clinical documentation, obtaining and/or reviewing separately obtained history, performing a medically appropriate examination, and counseling and educating the patient/family/caregiver. documented in this encounterMercy Health11-30-2022 Instructions* Patient Instructions* Cyn Berry PA-C - 08/25/2022 12:49 PM EST Please update me via Vestmarkt in 1 month on how lexapro 10mg is doing for you. Follow up routine in 6 months or sooner as needed. documented in this encounterMercy Health11-30-2022 History of Present illness Narrative* Cyn Berry [...] to 10mg Patient to update me via mychart as needed in 1 month. Otherwise follow [...] 6 MO - 64 YRS IM - [employer]ally[employer] COVID-19 BIVALENT BOOSTER VACCINE, AGE 12+ YR Cyn Berry PA-C documented in this encounterMercy Health11-12-2022 History of Present illness Narrative* Bev Banks APRN.GOLF PLAYER ASSISTANT - 08/07/2022 12:03 PM EST Images from [...] illness Bev Banks APRN.CNP documented in this encounterMercy Health11-12-2022 Instructions* Patient Instructions* Bev Banks APRN.CNP - [...] illness Bev Banks APRN.CNP documented in this encounterMercy Health11-12-2022 Miscellaneous Notes* Telephone Encounter - Carlos Turner LPN - 08/07/2022 8:25 AM EST . documented in this encounterMercy Health11-10-2022 Instructions* Patient Instructions* Alissa Barrow Ma - [...] please contact the office. documented in this encounterMercy Health11-10-2022 History of Present illness Narrative* Lucina Wang APRN.DEEPALI - 08/05/2022 8:51 AM EST Annealing Operator offered: Patient declines. Mendoza presents today for [...] IUD source: office provided IUD lot #: [id number] Exp date: 10/26/24 UNIVERSAL PROTOCOL / SAFETY [...] patient. Lucina Wang APRN.DEEPALI documented in this encounterMercy Health11-04-2022 Miscellaneous Notes* Telephone Encounter - Gabi Sands MA - 07/30/2022 2:30 PM EDT Patient notified and voiced understanding. Mailed cholesterol info. Gabi Sands MA * Telephone Encounter - Gabi Sands MA - 07/29/2022 10:17 AM EDT Left additional message for patient to contact office. Gabi Sands MA * Telephone Encounter - Carlos Turner [...] of labs are normal. documented in this encounterMercy Health11-02-2022 Miscellaneous Notes* Telephone Encounter - Karmen Mcfadden RN - 07/28/2022 3:51 PM EDT Called patient in an attempt to obtain outside records or recent procedures/ imaging. Patient unable to be reached. Karmen Mcfadden RN documented in this encounterMercy Health11-01-2022 History of Present illness Narrative* Cyn Berry [...] No history of dysuria, frequency or incontinence DIRECTOR SPECIALTY: Negative for abnormal vaginal bleeding, abnormal vaginal [...] GASTROENTEROLOGY Cyn Berry PA-C documented in this encounterMercy Health09-29-2022 Instructions* Patient Instructions* Britney Chong APRN.CNP - [...] or sooner as needed. documented in this encounterMercy Health09-29-2022 History of Present illness Narrative* Britney Chong APRN.CNP - 06/24/2022 10:00 AM EDT This is a 47 year old female who presents today with: Patient presents with: Acute Visit: Elevated BP HISTORY OF PRESENT ILLNESS: Mendoza Johnson is a 47 year old female. Patient presents with: Acute Visit: Elevated BP Patient of Dr. Nieves here in the office for elevated blood pressure. At DIRECTOR SPECIALTY appointment about 1 month ago refers that BP was elevated. Last night didn't feel well. Dahlgren like heart was pounding. Has been having [...] LAPAROSCOPIC APPENDECTOMY 06/17/16 TONSILLECTOMY PRIMARY/SECONDARY <AGE 12 1984 Tonsillectomy alone ALLERGIES [employer] Pollen [...] APRN.CNP This note was partially generated using [employer] voice recognition system. Note was reviewed for accuracy. There may be minor misspellings or grammar miscues with [employer] voice recognition. documented in this encounterMercy Health08-19-2022 Miscellaneous Notes* Telephone Encounter - Lucina Wang [...] back. Lucina Wang APRN.CNP documented in this encounterMercy Health07-29-2022 Miscellaneous Notes* Letter - Mammography Coordinator - 04/23/2022 9:53 AM EDT April 23, 2022 PID: [id number] Mendoza Johnson [address] [place] [address] Dear Ms. Johnson, We are pleased to [...] report will [facility] part of your permanent medical record and are available for your continuing care. Thank you for allowing us to help in meeting your health care needs. Sincerely, Dr. Liu Interpreting Radiologist [facility] (Normal over 40) documented in this encounterMercy Health07-28-2022 History of Present illness Narrative* RT Harshil(R) [...] 22, 2022 2:46 PM documented in this encounterMercy Health07-26-2022 History of Present illness Narrative* Lucina Wang APRN.GOLF PLAYER ASSISTANT - 04/20/2022 3:53 PM EDT Mendoza is [...] L2 SAB0 IAB0 Ectopic0 Multiple0 Live Births0 Lean Manager History LMP: 06/12/2021 (Exact Date), Having periods Age at Menarche: Age at First : Age at Menopause: Lean Manager History Comments: Sexual Activity: Yes; Male Contraception: [...] external genitalia normal, normal Bartholin's glands, urethra, Bigelow's glands, no vulvar lesions, no cervical lesions, [...] needed Lucina Wang APRN.CNP documented in this encounterMercy Health06-08-2022 Miscellaneous Notes* Telephone Encounter - Eliz Reyna APRN.CNM - 03/03/2022 1:03 PM EDT Prescription ordered. Eliz Reyna APRN.CNM * Telephone Encounter - Jayne Maradiaga RN - 03/03/2022 8:51 AM EDT Please review in AG's absence. Thank you. documented in this encounterMercy Health09-24-2021 NoteHNO ID: [id number] Author: Eliane Mo MD Service: ? Author Type: Physician Type: Progress Notes Filed: 06/19/2021 12:21 PM Note Text: VIRTUAL VISIT PROGRESS NOTE This is a virtual visit using Vivotechhart video visit. It required patient-provider interaction for [...] CRITERIA. (J Am Col (more content not included)...[facility]08-03-2021 NoteHNO ID: [id number] Author: RT Iain(R) Service: Radiology Author Type: Vice President Financial Type: Progress Notes Filed: 04/28/2021 11:25 AM [...] BY: RT Iain(R) April 28, 2021 11:25 [facility]08-03-2021 NoteHNO ID: [id number] Author: Eliane Mo MD Service: ? 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 And (more content not included)...[facility]02-27-2021 History of Present illness Narrative* Gay Kaba (Rt), Dewayne - 11/22/2020 11:40 AM EST Radiology Service [...] 22, 2020 11:42 AM documented in this encounterMercy Health [facility] Hospitallt note Author Poli Urbina [facility] Note Date/Time May 09, 2025 7: 57am [facility] Medical Records Department [address] [place] [address] Anesthesia Postop Eval I 05/09/25 0756 MR#: [id number] Acct: [id number] Name: MENDOZA JOHNSON Rep #:[id number] : 1975 49 From: Poli Urbina PCP: Dr. Trent Velazquez, DO Status:REG S DC Y Race: C Location: [place] [address] Anesthesia: Postop Eval I Current Vital Signs Temperature: 97 F Pulse Rate: 76 Blood Pressure: 118/72 Respiratory Rate: 16 Pulse Ox: 98 Oxygen Delivery Method: Room Air Assessment Airway patent: Yes Spontaneous unlabored respirations: Yes Mental status: Awake and Calm nausea: No Vomiting: No Anesthesia Complication: No Fluid Hydration Crystalloid volume administer (ml): 700 Total IV fluid infused: 700 Progress Note Anesthesia document: Postop Eval 1 completed: Yes 05/09/25 4461 <Electronically signed by Poli Urbina > Date _ Poli Reyesignmarco Signature: Date CC: ~ Signed [facility] Work Phone: Evaluation note* Diagnosis Encounter for gynecological examination with abnormal finding- Primary Routine gynecological examination Menorrhagia with irregular cycle Excessive or frequent menstruation Vaginal yeast infection Candidiasis of vulva and vagina Encounter for screening mammogram for breast cancer [facility] Diagnosis Encounter for screening mammogram for breast cancer [facility]* Diagnosis Excessive bleeding in premenopausal period- Primary Premenopausal menorrhagia [facility]* Diagnosis Excessive bleeding in premenopausal period- Primary Premenopausal menorrhagia [facility]* Diagnosis Hypertension, essential- Primary Unspecified essential hypertension [facility]* Diagnosis Hypertension, essential Unspecified essential hypertension [facility]* Diagnosis Well adult exam- Primary Routine general medical examination at a health care facility Hypertension, essential Unspecified essential hypertension Dyslipidemia Other and unspecified hyperlipidemia Encounter for screening for diabetes mellitus Screening for diabetes mellitus 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 Arthropathy, unspecified, site unspecified 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) [facility]* Diagnosis Encounter for IUD insertion- Primary Encounter for insertion of intrauterine contraceptive device Menorrhagia with irregular cycle Excessive or frequent menstruation Dysmenorrhea [facility]* Diagnosis Neck pain on right side- Primary Cervicalgia [facility] Diagnosis Mild episode of recurrent major depressive disorder (HCC)- Primary Hypertension, essential Unspecified essential hypertension Encounter for immunization Need for other specified prophylactic vaccination against single bacterial disease documented [facility]* Diagnosis IUD check up- Primary Surveillance of previously prescribed intrauterine contraceptive device documented in this encounter [facility]* Diagnosis Parotitis, acute- Primary Sialoadenitis documented in this encounter [facility] noteNo assessment information availableWCleveland Clinic [facility] Work Phone: Evaluation note* Diagnosis Hypertension, essential Unspecified essential hypertension documented in this encounter [facility]* Diagnosis Encounter for screening mammogram for breast cancer documented in this encounter [facility]* Diagnosis Pain- Primary Generalized pain documented in this encounter [facility]* Diagnosis Calcific tendonitis- Primary Calcium deposits in tendon and bursa documented in this encounter [facility]* Diagnosis Pain Generalized pain documented in this encounter [facility]* Diagnosis Calcific tendinitis of right shoulder- Primary Calcifying tendinitis of shoulder documented in this encounter [facility]* Diagnosis Calcific tendonitis Calcium deposits in tendon and bursa documented in this encounter [facility]* Diagnosis Calcific tendinitis of right shoulder- Primary Calcifying tendinitis of shoulder documented in this encounter [facility]* Diagnosis Calcific tendinitis of right shoulder- Primary Calcifying tendinitis of shoulder [facility]* Diagnosis Calcific tendinitis of right shoulder- Primary Calcifying tendinitis of shoulder documented in this encounter [facility]* Diagnosis Calcific tendinitis of right shoulder- Primary Calcifying tendinitis of shoulder documented in this encounter [facility]* Diagnosis Calcific tendinitis of right shoulder- Primary Calcifying tendinitis of shoulder [facility]* Diagnosis Calcific tendinitis of right shoulder- Primary Calcifying tendinitis of shoulder documented in this encounter [facility]* Diagnosis Acute cough documented in this encounter [facility] (n[facility]ative)* Diagnostic Procedure Only (Routine) - Authorized Specialty Diagnoses / Procedures Referred By Antwon martínez Referred To Contact [facility] Diagnoses Menorrhagia with irregular cycle Procedures PELVIC US WHI US PELVIC NONOBSTETRIC REAL-TIME IMAGE COMPLETE Lucina Wang APRN.GOLF PLAYER ASSISTANT [address] [place] [address] [facility] [address] [place] [address] Referral ID Status Reason Start Date Expiration Date Visits Requested Visits Authorized [id number] Authorized Auto-Generat ed Referral 04/20/2022 04/20/2023 1 1 * Diagnostic Procedure Only (Routine) - Pending Review Specialty Diagnoses / Procedures Referred By Contac t Referred To Contact [facility] Diagnoses Encounter for screening mammogram for breast cancer Procedures MARCELA SCREENING SCREENING MAMMOGRAPHY BI 2-VIEW BREAST INC CAD Lucina Wang APRN.CNP [address] [place] [address] [facility] [address] [place] [address] Referral ID Status Reason Start Date Expiration Date Visits Requested Visits Authorized [id number] Pending Review Auto-Generat ed Referral 04/20/2022 05/20/2023 1 1 [facility] for referral (narrative)* Diagnostic Procedure Only (Routine) - Closed Specialty Diagnoses / Procedures Referred By Contac t Referred To Contact BR IMAGING Diagnoses Encounter for screening mammogram for breast cancer Procedures MARCELA SCREENING SCREENING MAMMOGRAPHY BI 2-VIEW BREAST INC CAD Yang Nieves MD [address] [place] [address] [facility] [address] [place] [address] Referral ID Status Reason Start Date Expiration Date V isits Requested Visits Authorized [id number] Closed Auto-Generate d Referral 11/18/2021 12/18/2022 1 1 [facility] for referral (narrative)* Outpatient Procedure (Routine) - Pending Review Specialty Diagnoses / Procedures Referred By Contac t Referred To Contact [facility] Diagnoses Excessive bleeding in premenopausal period Procedures ENDOMETRIAL BIOPSY ENDOMETRIAL BX W/WO ENDOCERVIX BX W/O DILAT SPX Lucina Wang APRN.[employer]ER ASSISTANT [address] [place] [address] [facility] [address] [place] [address] Referral ID Status Reason Start Date Expiration Date Visits Requested Visits Authorized [id number] Pending Review Auto-Generat ed Referral 05/14/2022 05/14/2023 1 1 * Outpatient Procedure (Routine) - Pending Review Specialty Diagnoses / Procedures Referred By Antwon t Referred To Contact [facility] Diagnoses Excessive bleeding in premenopausal period Procedures INSERT INTRAUTERINE DEVICE LEVONORGESTREL IU 52MG 5 YR INSERT INTRAUTERINE DEVICE Lucina Wang APRN.CNP [address] [place] [address] [facility] [address] [place] [address] Referral ID Status Reason Start Date Expiration Date Visits Requested Visits Authorized [id number] Pending Review Auto-Generat ed Referral 05/14/2022 05/14/2023 1 1 [facility] for referral (narrative)* Diagnostic Procedure Only (Routine) - Pending Review Specialty Diagnoses / Procedures Referred By Antwon t Referred To Contact [facility] Diagnoses Encounter for screening mammogram for breast cancer Procedures MARCELA SCREENING SCREENING MAMMOGRAPHY BI 2-VIEW BREAST INC CAD Yang Nieves MD [address] [place] [address] [facility] [address] [place] [address] Referral ID Status Reason Start Date Expiration Date Visits Requested Visits Authorized [id number] Pending Review Auto-Generat ed Referral 05/25/2023 06/23/2024 1 1 [facility] for referral (narrative)* Diagnostic Procedure Only (Routine) - Authorized Specialty Diagnoses / Procedures Referred By Contac t Referred To Contact XR IMAGING Diagnoses Pain Procedures XR SHOULDER GENERAL 3V OR MORE AP/TRUE AP/OTHER RIGHT RADEX SHOULDER COMPLETE MINIMUM 2 VIEWS Benjamin Patel MD [address] [place] [address] [place] [address] Referral ID Status Reason Start Date Expiration Date Visits Requested Visits Authorized [id number] Authorized Auto-Generat ed Referral 02/06/2024 03/07/2025 1 1 [facility] for referral (narrative)* Diagnostic Procedure Only (Urgent) - Authorized Specialty Diagnoses / Procedures Referred By Antwon t Referred To Contact [facility] Diagnoses Calcific tendonitis Procedures US SHOULDER RIGHT US COMPL JOINT R-T W/IMAGE DOCUMENTATION Benjamin Patel MD [address] [place] [address] [place] [address] Referral ID Status Reason Start Date Expiration Date Visits Requested Visits Authorized [id number] Authorized Auto-Generat ed Referral 02/08/2024 03/09/2025 1 1 [facility] for referral (narrative)* Diagnostic Procedure Only (Urgent) - Closed Specialty Diagnoses / Procedures Referred By Contac t Referred To Contact [facility] Diagnoses Calcific tendonitis Procedures US SHOULDER RIGHT US COMPL JOINT R-T W/IMAGE DOCUMENTATION Benjamin Patel MD [address] [place] [address] [place] [address] Referral ID Status Reason Start Date Expiration Date V isits Requested Visits Authorized [id number] Closed Auto-Generate d Referral 02/08/2024 03/09/2025 1 1 [facility] for referral (narrative)No reason for referral [facility] Phone: Reason for visit Narrative* Diagnostic Procedure Only (Routine) - Closed Specialty Diagnoses / Procedures Referred By Antwon martínez Referred To Contact [facility] Diagnoses Encounter for screening mammogram for breast cancer Procedures MARCELA SCREENING SCREENING MAMMOGRAPHY BI 2-VIEW BREAST INC CAD Yang Nieves MD [address] [place] [address] [facility] [address] [place] [address] Referral ID Status Reason Start Date Expiration Date V isits Requested Visits Authorized [id number] Closed Auto-Generate d Referral 11/18/2021 12/18/2022 1 [facility] Diagnostic Procedure Only (Urgent) - Closed Specialty Diagnoses / Procedures Referred By Antwon martínez Referred To Contact [facility] IMAGING Diagnoses Calcific tendonitis Procedures US SHOULDER RIGHT US COMPL JOINT R-T W/IMAGE DOCUMENTATION Benjamin Ptael MD [address] [place] [address] [place] [address] Referral ID Status Reason Start Date Expiration Date V isits Requested Visits Authorized [id number] Closed Auto-Generate d Referral 02/08/2024 03/09/2025 1 1 [facility] Summary Purpose Family History No Family History Records FoundNo Family History Records FoundNo Family History Records Found Advance Directives No Advanced Directives Records Found Advance Directive Response Recorded Date/ Time Advance Directives No May 12:55am Living Will No April 14, 2017 1:40pm Power of Residence Hall Director No April 14 7 1:40pm Advance Directive Response Recorded Date/ Time Advance Directives No May 12:55am Living Will No April 28, 2023 6:43am Power of Residence Hall Director No April 28 6:43am Advance Directive Response Recorded Date/ Time Advance Directives No May 11:55pm Living Will No August 24, 023 8:54pm Power of Residence Hall Director No August 24, 2023 8:54pm Advance Directive Response Recorded Date/ Time Advance Directives No May 12:55am Advance Directive Response Recorded Date/ Time Do you have a Healthcare Power of Residence Hall Director? 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) Procedures CONSULT TO GASTROENTEROLOGY OFFICE/OUTPATIENT [facility] 60-74 MINUTES Cyn Berry PA-C [address] [place] [address] Referral ID Status Reason Start Date Expiration Date Visits Requested Visits Authorized [id number] Authorized PCP Requested Referral 07/27/2022 07/27/2023 1 [...] INT LABS May 02, 2025 7:1 3am Chief Complaint Admit Date ABDOMINAL DISCOMFORT April 15, 2025 8:3 2am INT LABS May 02, 2025 7:1 3am INT [facility] May 08, 2025 10 :07am Reason for Visit Admit Date Bloating April 15, 2025 8:32 am Diarrhea April 15, 2025 8:32 am Bloating May 09, 2025 6: 03am Diarrhea May 09, 2025 6: 03am Additional Source Comments INFORMATION SOURCE (unrecogn ized section and content) DATE CREATED AUTHOR 12/15/2021 [facility] DATE CREATED AUTHOR AUTHOR'S ORGANIZ ATION 06/15/2025 [facility] DATE CREATED AUTHOR AUTHOR'S ORGANIZ ATION 06/15/2025 [facility] Source Comments (unrecognize d section and content) In the event this informatio n is protected by the Federal Confidentiality of Alcohol and Drug Abuse Patient Records regulations: The Federal rules restrict any use of the information to criminally investigate or prosecute any alcohol or drug abuse patient.[facility] Health[facility] the event this information is protected by the Federal Confidentiality of Alcohol and Drug Abuse Patient Records regulations: The Federal rules restrict any use of the information to criminally investigate or prosecute any alcohol or drug abuse patient.[facility] HealthIn the event this information is protected by the Federal Confidentiality of Alcohol and Drug Abuse Patient Records regulations: The Federal rules restrict any use of the information to criminally investigate or prosecute any alcohol or drug abuse patient.[facility] HealthIn the event this information is protected by the Federal Confidentiality of Alcohol and Drug Abuse Patient Records regulations: The Federal rules restrict any use of the information to criminally investigate or prosecute any alcohol or drug abuse patient.[facility] HealthIn the event this information is protected by the Federal Confidentiality of Alcohol and Drug Abuse Patient Records regulations: The Federal rules restrict any use of the information to criminally investigate or prosecute any alcohol or drug abuse patient.[facility] HealthIn the event this information is protected by the Federal Confidentiality of Alcohol and Drug Abuse Patient Records regulations: The Federal rules restrict any use of the information to criminally investigate or prosecute any alcohol or drug abuse patient.[facility] HealthIn the event this information is protected by the Federal Confidentiality of Alcohol and Drug Abuse Patient Records regulations: The Federal rules restrict any use of the information to criminally investigate or prosecute any alcohol or drug abuse patient.[facility] HealthIn the event this information is protected by the Federal Confidentiality of Alcohol and Drug Abuse Patient Records regulations: The Federal rules restrict any use of the information to criminally investigate or prosecute any alcohol or drug abuse patient.[facility] HealthIn the event this information is protected by the Federal Confidentiality of Alcohol and Drug Abuse Patient Records regulations: The Federal rules restrict any use of the information to criminally investigate or prosecute any alcohol or drug abuse patient.[facility] HealthIn the event this information is protected by the Federal Confidentiality of Alcohol and Drug Abuse Patient Records regulations: The Federal rules restrict any use of the information to criminally investigate or prosecute any alcohol or drug abuse patient.[facility] HealthIn the event this information is protected by the Federal Confidentiality of Alcohol and Drug Abuse Patient Records regulations: The Federal rules restrict any use of the information to criminally investigate or prosecute any alcohol or drug abuse patient.[facility] HealthIn the event this information is protected by the Federal Confidentiality of Alcohol and Drug Abuse Patient Records regulations: The Federal rules restrict any use of the information to criminally investigate or prosecute any alcohol or drug abuse patient.[facility] the event this information is protected by the Federal Confidentiality of Alcohol and Drug Abuse Patient Records regulations: The Federal rules restrict any use of the information to criminally investigate or prosecute any alcohol or drug abuse patient.[facility] HealthIn the event this information is protected by the Federal Confidentiality of Alcohol and Drug Abuse Patient Records regulations: The Federal rules restrict any use of the information to criminally investigate or prosecute any alcohol or drug abuse patient.[facility] HealthIn the event this information is protected by [...] or prosecute any alcohol or drug abuse patient.[facility] HealthIn the event this information is protected by the Federal Confidentiality of Alcohol and Drug Abuse Patient Records regulations: The Federal rules restrict any use of the information to criminally investigate or prosecute any alcohol or drug abuse patient.[facility] HealthIn the event this information is protected by the Federal Confidentiality of Alcohol and Drug Abuse Patient Records regulations: The Federal rules restrict any use of the information to criminally investigate or prosecute any alcohol or drug abuse patient.[facility] HealthIn the event this information is protected by the Federal Confidentiality of Alcohol and Drug Abuse Patient Records regulations: The Federal rules restrict any use of the information to criminally investigate or prosecute any alcohol or drug abuse patient.[facility] HealthIn the event this information is protected by the Federal Confidentiality of Alcohol and Drug Abuse Patient Records regulations: The Federal rules restrict any use of the information to criminally investigate or prosecute any alcohol or drug abuse patient.[facility] HealthIn the event this information is protected by the Federal Confidentiality of Alcohol and Drug Abuse Patient Records regulations: The Federal rules restrict any use of the information to criminally investigate or prosecute any alcohol or drug abuse patient.[facility] HealthIn the event this information is protected by the Federal Confidentiality of Alcohol and Drug Abuse Patient Records regulations: The Federal rules restrict any use of the information to criminally investigate or prosecute any alcohol or drug abuse patient.[facility] HealthIn the event this information is protected by the Federal Confidentiality of Alcohol and Drug Abuse Patient Records regulations: The Federal rules restrict any use of the information to criminally investigate or prosecute any alcohol or drug abuse patient.[facility] HealthIn the event this information is protected by the Federal Confidentiality of Alcohol and Drug Abuse Patient Records regulations: The Federal rules restrict any use of the information to criminally investigate or prosecute any alcohol or drug abuse patient.[facility] HealthIn the event this information is protected by the Federal Confidentiality of Alcohol and Drug Abuse Patient Records regulations: The Federal rules restrict any use of the information to criminally investigate or prosecute any alcohol or drug abuse patient.[facility] HealthIn the event this information is protected by the Federal Confidentiality of Alcohol and Drug Abuse Patient Records regulations: The Federal rules restrict any use of the information to criminally investigate or prosecute any alcohol or drug abuse patient.[facility] HealthIn the event this information is protected by the Federal Confidentiality of Alcohol and Drug Abuse Patient Records regulations: The Federal rules restrict any use of the information to criminally investigate or prosecute any alcohol or drug abuse patient.[facility] HealthIn the event this information is protected by the Federal Confidentiality of Alcohol and Drug Abuse Patient Records regulations: The Federal rules restrict any use of the information to criminally investigate or prosecute any alcohol or drug abuse patient.[facility] HealthIn the event this information is protected by the Federal Confidentiality of Alcohol and Drug Abuse Patient Records regulations: The Federal rules restrict any use of the information to criminally investigate or prosecute any alcohol or drug abuse patient.[facility] HealthIn the event this information is protected by the Federal Confidentiality of Alcohol and Drug Abuse Patient Records regulations: The Federal rules restrict any use of the information to criminally investigate or prosecute any alcohol or drug abuse patient.[facility] HealthIn the event this information is protected by the Federal Confidentiality of Alcohol and Drug Abuse Patient Records regulations: The Federal rules restrict any use of the information to criminally investigate or prosecute any alcohol or drug abuse patient.[facility] HealthIn the event this information is protected by the Federal Confidentiality of Alcohol and Drug Abuse Patient Records regulations: The Federal rules restrict any use of the information to criminally investigate or prosecute any alcohol or drug abuse patient.[facility] HealthIn the event this information is protected by the Federal Confidentiality of Alcohol and Drug Abuse Patient Records regulations: The Federal rules restrict any use of the information to criminally investigate or prosecute any alcohol or drug abuse patient.[facility] HealthIn the event this information is protected by the Federal Confidentiality of Alcohol and Drug Abuse Patient Records regulations: The Federal rules restrict any use of the information to criminally investigate or prosecute any alcohol or drug abuse patient.[facility] HealthIn the event this information is protected by the Federal Confidentiality of Alcohol and Drug Abuse Patient Records regulations: The Federal rules restrict any use of the information to criminally investigate or prosecute any alcohol or drug abuse patient.[facility] HealthIn the event this information is protected by the Federal Confidentiality of Alcohol and Drug Abuse Patient Records regulations: The Federal rules restrict any use of the information to criminally investigate or prosecute any alcohol or drug abuse patient.[facility] HealthIn the event this information is protected by the Federal Confidentiality of Alcohol and Drug Abuse Patient Records regulations: The Federal rules restrict any use of the information to criminally investigate or prosecute any alcohol or drug abuse patient.[facility] HealthIn the event this information is protected by the Federal Confidentiality of Alcohol and Drug Abuse Patient Records regulations: The Federal rules restrict any use of the information to criminally investigate or prosecute any alcohol or drug abuse patient.[facility] HealthIn the event this information is protected by the Federal Confidentiality of Alcohol and Drug Abuse Patient Records regulations: The Federal rules restrict any use of the information to criminally investigate or prosecute any alcohol or drug abuse patient.[facility] HealthIn the event this information is protected by the Federal Confidentiality of Alcohol and Drug Abuse Patient Records regulations: The Federal rules restrict any use of the information to criminally investigate or prosecute any alcohol or drug abuse patient.[facility] HealthIn the event this information is protected by the Federal Confidentiality of Alcohol and Drug Abuse Patient Records regulations: The Federal rules restrict any use of the information to criminally investigate or prosecute any alcohol or drug abuse patient.[facility] HealthIn the event this information is protected by the Federal Confidentiality of Alcohol and Drug Abuse Patient Records regulations: The Federal rules restrict any use of the information to criminally investigate or prosecute any alcohol or drug abuse patient.[facility] Teams (unrecognized sec tion and content) Second Helper Relationship Specialty Start Date End Date Yang Nieves MD [address] [place] [address] PCP - General Family Practice 03/13/16 Second Helper Relationship Specialty Start Date End Date Yang Nieves MD [address] [place] [address] PCP - General Family Practice 03/13/16 Second Helper Relationship Specialty Start Date End Date Yang Nieves MD [address] [place] [address] PCP - General Family Practice 03/13/16 Second Helper Relationship Specialty Start Date End Date Yang Nieves MD [address] [place] [address], [place] [address] PCP - General Family Practice 03/13/16 Second Helper Relationship Specialty Start Date End Date Yang Nieves MD [facility] [place] [address] PCP - General Family Practice 03/13/16 Second Helper Relationship Specialty Start Date End Date Yang Nieves MD [facility] [place] [address] PCP - General Family Practice 03/13/16 Second Helper Relationship Specialty Start Date End Date Yang Nieves MD [facility] [place] [address] PCP - General Family Practice 03/13/16 Second Helper Relationship Specialty Start Date End Date Yang Nieves MD [address] [place] [address], [place] [address] PCP - General Family Medicine 03/13/16 Second Helper Relationship Specialty Start Date End Date Yang Nieves MD [address] [place] [address], [place] [address] PCP - General Family Medicine 03/13/16 Second Helper Relationship Specialty Start Date End Date Yang Nieves MD [address] [place] [address] PCP - General Family Medicine 03/13/16 Second Helper Relationship Specialty Start Date End Date Yang Nieves MD [address] [place] [address] PCP - General Family Medicine 03/13/16 Second Helper Relationship Specialty Start Date End Date Yang Nieves MD [address] [place] [address] PCP - General Family Medicine 03/13/16 Second Helper Relationship Specialty Start Date End Date Yang Nieves MD [address] [place] [address] PCP - General Family Medicine 03/13/16 Second Helper Relationship Specialty Start Date End Date Yang Nieves MD [address] [place] [address] PCP - General Family Medicine 03/13/16 Second Helper Relationship Specialty Start Date End Date Yang Nieves MD [address] [place] [address] PCP - General Family Medicine 03/13/16 Second Helper Relationship Specialty Start Date End Date Yang Nieves MD [address] [place] [address] PCP - General Family Medicine 03/13/16 Second Helper Relationship Specialty Start Date End Date Yang Nieves MD [address] [place] [address] PCP - General Family Medicine 03/13/16 Second Helper Relationship Specialty Start Date End Date Yang Nieves MD [address] [place] [address] PCP - General Family Medicine 03/13/16 Team [...] Dr. Bo Young MD Emergency Provider Active Second Helper Relationship Specialty Start Date End Date Yang Nieves MD [address] [place] [address] PCP - General Family Medicine 03/13/16 Team Status: Inactive Member Role Status Dates Dr. Trent Velazquez DO Primary Care Provider Active Dr. Bo Young MD Attending Provider, Emergency Provi mila Active Team Status: Inactive Member Role Status Dates Dr. Trent Velazquez DO Primary Care Provider Active Dr. Griselda Stewart DO Emergency Provider Active Second Helper Relationship Specialty Start Date End Date Trent Velazquez DO [address] [place] [address] PCP - General Family Medicine 12/22/23 Second Helper Relationship Specialty Start Date End Date Trent Velazquez DO [address] [place] [address] PCP - General Family Medicine 12/22/23 Second Helper Relationship Specialty Start Date End Date Trent Velazquez DO [address] [place] [address] PCP - General Family Medicine 12/22/23 Second Helper Relationship Specialty Start Date End Date Trent Velazquez T [address] [place] [address] PCP - General Family Medicine 12/22/23 Second Helper Relationship Specialty Start Date End Date Labor, Trent Martínez [address] [place] [address] PCP - General Family Medicine 12/22/23 Second Helper Relationship Specialty Start Date End Date Labor, Trent Martínez DO [address] [place] [address] PCP - General Family Medicine 12/22/23 Second Helper Relationship Specialty Start Date End Date Labor, Trent Martínez DO [address] [place] [address] PCP - General Family Medicine 12/22/23 Second Helper Relationship Specialty Start Date End Date Labor, Trent Martínez DO [address] [place] [address] PCP - General Family Medicine 12/22/23 Second Helper Relationship Specialty Start Date End Date Labor, Trent Martínez DO [address] [place] [address] PCP - General Family Medicine 12/22/23 Second Helper Relationship Specialty Start Date End Date Labor, Trent Martínez DO [address] [place] [address] PCP - General Family Medicine 12/22/23 Second Helper Relationship Specialty Start Date End Date Labor, Trent Martínez DO [address] [place] [address] PCP - General Family Medicine 12/22/23 Second Helper Relationship Specialty Start Date End Date Trent Velazquez BrisaDO [address] [place] [address] PCP - General Family Medicine 12/22/23 Second Helper Relationship Specialty Start Date End Date Trent Velazquez BrisaDO [address] [place] [address] PCP - General Family Medicine 12/22/23 Second Helper Relationship Specialty Start Date End Date Trent Velazquez BrisaDO [address] [place] [address] PCP - General Family Medicine 12/22/23 Second Helper Relationship Specialty Start Date End Date Yang Nieves MD [address] [place], [place] [address] PCP - General Family Medicine 03/13/16 12/21/23 [...] May 02, 2025 End: May 02, 2025 Team Status: Inactive Member Role/Relationship Status Dates Dr. Trent Velazquez DO Primary Care Provider Active Start: April 15, 2025 End: April 15, 2025 Dr. Trent Velazquez DO Referring Provider Active Start: April 15, 2025 End: April 15, 2025 Dr. Axel Castaneda DO Attending Provider Active Start: April 15, 2025 End: April 15, 2025 Team Status: Inactive Member Role/Relationship Status Dates Dr. Trent Velazquez DO Primary Care Provider Active Start: May 02, 2025 End: May 02, 2025 Dr. Axel Castaneda DO Attending Provider Active Start: May 02, 2025 End: May 02, 2025 Dr. Axel Castaneda DO Referring Provider Active Start: May 02, 2025 End: May 02, 2025 Team Status: Active Member Role/Relationship Status Dates Dr. Trent Velazquez DO Primary Care Provider Active Start: May 08, 2025 Dr. Axel Castaneda DO Attending Provider Active Start: May 08, 2025 Dr. Axel Castaneda DO Referring Provider Active Start: May 08, 2025 Team Status: Inactive Member Role/Relationship Status Dates Dr. Trent Velazquez DO Primary Care Provider Active Start: May 09, 2025 End: May 09, 2025 Dr. Trent Velazquez DO Referring Provider Active Start: May 09, 2025 End: May 09, 2025 Dr. Axel Castaneda DO Attending Provider Active Start: May 09, 2025 End: May 09, 2025 Team Status: Active Member Role/Relationship Status Dates Dr. Trent Velazquez DO Primary Care Provider Active Start: May 09, 2025 Dr. Trent Velazquez DO Referring Provider Active Start: May 09, 2025 Dr. Axel Castaneda DO Attending Provider Active Start: May 09, 2025 Dr. Axel Castaneda DO Other Provider Active St art: May 09, 2025 Team Status: Inactive Member Role/Relationship Status Dates Dr. Trent Velazquez DO Primary Care Provider Active Start: May 08, 2025 End: May 08, 2025 Dr. Axel Castaneda DO Attending Provider Active Start: May 08, 2025 End: May 08, 2025 Dr. Axel Castaneda DO Referring Provider Active Start: May 08, 2025 End: May 08, 2025 Reason for Visit (unrecogniz ed section and content) Reason Comments PT Discharge Specialty Diagnoses / Procedures Referred By Antwon martínez Referred To Contact [facility] Diagnoses Calcific tendinitis of right shoulder Procedures CONSULT TO PHYSICAL THERAPY PHYSICAL THERAPY EVALUATION HIGH COMPLEX 45 MINS Da Conley DO [address] [place] [address] [address] Referral ID Status Reason Start Date Expiration Date Visits Requested Visits Authorized [id number] Authorized Auto-Generat ed Referral 09/26/2023 09/25/2024 40 40 Reason Comments Physical Therapy Reason Comments PT Progress Note Reason Comments Well Woman Reason Comments DIRECTOR SPECIALTY Ultrasound Reason Comments Results Orders New Medication Reason Comments Acute Visit Elevated BP Reason Comments Refill Request Reason Comments Yearly Exam Reason Comments Request Outside Medical Records Reason Comments Results Reason Onset Date Comments Insertion Of IUD 08/05/2022 Specialty Diagnoses / Procedures Referred By Antwon martínez Referred To Contact [facility] Diagnoses Excessive bleeding in premenopausal period Encounter for insertion of intrauterine contraceptive device Encounter for removal of intrauterine contraceptive device Procedures INSERT INTRAUTERINE DEVICE LEVONORGESTREL IU 52MG 5 YR INSERT INTRAUTERINE DEVICE REMOVE INTRAUTERINE DEVICE Lucina Wang, KATHERYN.[employer]ER ASSISTANT [address] [place] [address] [facility] [address] [place] [id number] Referral ID Status Reason Start Date Expiration Date Visits Requested Visits Authorized [id number] Authorized Auto-Generat ed Referral 05/24/2022 09/25/2022 2 2 Reason Comments Recheck Reason Comments iud check 4 week follow up Reason Comments jaw pain X 5 days Reason Onset Date Comments Refill Request 03/10/2023 Reason Comments New Pain Reason Comments Appointment with Dr. Conley or Dr. Genin Reason Comments Appointment Reason Comments Radio Gen RMP Specialty Diagnoses / Procedures Referred By Contac t Referred To Contact XR IMAGING Diagnoses Pain Procedures XR SHOULDER GENERAL 3V OR MORE AP/TRUE AP/OTHER RIGHT RADEX SHOULDER COMPLETE MINIMUM 2 VIEWS Benjamin Patel MD [address] [place] [address] [place] [address] Referral ID Status Reason Start Date Expiration Date V isits Requested Visits Authorized [id number] Closed Auto-Generate d Referral 02/06/2024 03/07/2025 1 [...] TENOTOMY WITH ULTRASOUND GUIDE - RIGHT SHOULDER Da Cnoley, DO [address] [place] [address] Da Conley, DO [address] [place] [address] Referral ID Status Reason Start Date Expiration Date Visits Re quested Visits Authorized [id number] Closed 03/05/2024 09/25/2024 1 1 Reason Comments [...] BE BASED ON THE PRIMARY CLINICAL RECORDS. [employer] [facility]. provides no warranty or guarantee of the accuracy or completeness of information in this document.
[2025-06-19 07:51] LABS: Hematocrit 40.3 % (37-47); Hemoglobin 13.2 g/dL (12.0-15.0); Immature Granulocytes Count 0.060 X10^3/uL (0.0-0.0); Mean Corp Hgb Conc 32.8 g/dL (32-36); Mean Corpuscular Volume 88.6 fL (81-99); Mean Platelet Vol. 11.6 fl (6.2-12.0); NRBC Flagged by Analyzer 0 % (0-5); Platelet Count 284 K/mm3 (150-450); RBC Distribution Width CV 12.2 % (11.6-14.6); RBC Distribution Width SD 39.5 fl (35.1-43.9); Red Blood Count 4.55 M/mm3 (4.2-5.4); White Blood Count 9.6 K/mm3 (4.4-11.0)
[2025-06-19 08:13] LABS: Prothrombin Time (Protime)PT. 13.7 SECONDS (11.7-14.9)
[2025-06-19 08:14] LABS: AST(SGOT) 23 U/L (<=31); Alanine Aminotransfer ALT/SGPT 23 U/L (<=34); Albumin, Serum 4.1 g/dL (3.5-5.0); Alkaline Phosphatase 109 U/L (35-104); Anion Gap 12 (5-15); BUN 15 mg/dL (4-19); BUN/Creat Ratio 18.4 RATIO (10-20); Calcium,Total 9.1 mg/dL (7.6-11.0); Carbon Dioxide 21.7 mmol/L (21.0-32.0); Chloride 105 mmol/L (98-108); Globulin 3.4 g/dL (2.2-4.2); Glucose 124 mg/dL (70-99); Partial Thromboplast Time 29.6 Seconds (24.1-36.2); Potassium 4.2 mmol/L (3.3-5.1)
== END | disposition home or self-care (01) ==
LOC: LAB 07:03
PROVIDERS: PCP Family Medicine; Referring Provider Obstetrics & Gynecology; Visit Provider Obstetrics & Gynecology
DX: R23.3 Spontaneous ecchymoses (principal)
CPT/HCPCS: 36415; 80053; 85025; 85610; 85652; 85730

== ENCOUNTER → 2025-06-21 | Outpatient (CLI) | payer OTHER, SELFPAY ==
--- NOTE | 2025-06-21 10:29 | NM_ITS ---
PROCEDURE: GASTRIC EMPTYING STUDY 06/21/2025 REASON FOR EXAM: DIARRHEA AND BLOATING COMPARISON: None. TECHNIQUE: Procedure Code: NMGES Modality: NM Procedure: GASTRIC EMPTYING STUDY The patient ingested a semi-solid meal of oatmeal. There was no vomiting postprandially. Anterior and posterior planar images of the upper abdomen were obtained for a total of 60 minutes. Regions of interest were drawn, and a geometric mean was used to calculate a [id number]. Medications taken in the past 24 hours that may affect gastric emptying: None RADIOPHARMACEUTICAL: Technetium 99 M sulfur colloid DOSE 1.0mCi orally with the oatmeal. FINDINGS: During the time of imaging, gastroesophageal reflux was not visualized. Linear fit gastric emptying half-time of 40 minutes. Gastric emptying at 17.5 minutes of 21%, at 29.5 minutes of 35%, at 47.5 minutes of 59%, and at 59.5 minutes of 74%. NM/Gastric Emptying Study IMPRESSION: Normal semi solid phase gastric emptying. Reading Location: [id number]
== END | disposition home or self-care (01) ==
LOC: NM 10:28
PROVIDERS: PCP Family Medicine; Referring Provider Internal Medicine Gastroenterology; Visit Provider Internal Medicine Gastroenterology
DX: R19.7 Diarrhea, unspecified (principal); R14.0 Abdominal distension (gaseous)
CPT/HCPCS: 78264; A9541

== ENCOUNTER → 2025-06-26 | Outpatient (CLI) | payer OTHER, SELFPAY ==
--- NOTE | 2025-06-26 07:22 | US_ITS ---
PROCEDURE: TRANSVAGINAL NON- 06/26/2025 REASON FOR EXAM: PELVIC PAIN, IUD CHECK TECHNIQUE: Procedure Code: USTVAG Modality: US Procedure: TRANSVAGINAL NON- COMPARISON: None FINDINGS: Measurements: Uterus: 8.9 x 5.5 x 4.2 cm. There is a 2.3 x 2.1 x 2.1 cm fibroid. Endometrium: Hyperechoic with thickness of 2.0 mm Right ovary: 3.5 x 2.1 x 1.5 cm, no suspicious adnexal mass, normal color flow Left ovary: 3.8 x 3.0 x 3.0 cm, there is a simple 2.2 cm cyst. Normal color Doppler flow. Given the patient's age, a short-term 4-6 week follow-up ultrasound is recommended to assess stability/resolution Other: No free fluid, bladder incompletely distended US/Transvaginal Non- IMPRESSION: 2.2 cm left adnexal cyst, 4-6 week follow-up recommended to ensure stability/re solution Small uterine fibroid Sonographically normal endometrium for age Sonographically normal right ovary Reading Location: [id number]
== END | disposition home or self-care (01) ==
PROVIDERS: PCP Family Medicine; Referring Provider Obstetrics & Gynecology; Visit Provider Obstetrics & Gynecology
DX: R10.20 Pelvic and perineal pain unspecified side (principal); Z30.431 Encounter for routine checking of intrauterine contraceptive device
CPT/HCPCS: 76830

== ENCOUNTER → 2025-08-08 | Outpatient (CLI) | payer OTHER, SELFPAY ==
[2025-08-08 14:07] LABS: AST(SGOT) 27 U/L (<=31); Alanine Aminotransfer ALT/SGPT 24 U/L (<=34); Albumin, Serum 4.1 g/dL (3.5-5.0); Alkaline Phosphatase 110 U/L (35-104); Anion Gap 10 (5-15); BUN 15 mg/dL (4-19); BUN/Creat Ratio 18.1 RATIO (10-20); CRP 19.00 mg/L (0.0-3.0); Calcium,Total 9.5 mg/dL (7.6-11.0); Carbon Dioxide 25.1 mmol/L (21.0-32.0); Chloride 103 mmol/L (98-108); Globulin 3.5 g/dL (2.2-4.2); Glucose 104 mg/dL (70-99); Potassium 4.1 mmol/L (3.3-5.1)
== END | disposition home or self-care (01) ==
PROVIDERS: PCP Family Medicine; Referring Provider Physician Assistant; Visit Provider Physician Assistant
DX: M25.50 Pain in unspecified joint (principal); K51.30 Ulcerative (chronic) rectosigmoiditis without complications; R23.3 Spontaneous ecchymoses; R20.2 Paresthesia of skin; M72.2 Plantar fascial fibromatosis; G89.29 Other chronic pain; M54.41 Lumbago with sciatica, right side; K27.9 Peptic ulcer, site unspecified, unspecified as acute or chronic, without hemorrhage or perforation
CPT/HCPCS: 36415; 80053; 85652; 86140

== ENCOUNTER → 2025-08-15 | Outpatient (CLI) | payer OTHER, SELFPAY ==
--- NOTE | 2025-08-15 08:35 | RAD_ITS ---
PROCEDURE: LUMBAR SPINE 2 OR 3 VIEWS 08/15/2025 REASON FOR EXAM: LOW BACK PAIN TECHNIQUE: Procedure Code: RADSPLL Modality: DX Procedure: LUMBAR SPINE 2 OR 3 VIEWS FINDINGS: Mild superior endplate compression of L2 of undetermined age. No definite evidence of an acute fracture. No posterior osseous retropulsion. Up to mild discogenic degenerative changes of the visualized spine. Normal alignment. RAD/Lumbar Spine 2 or 3 Views IMPRESSION: Mild superior endplate compression of L2 of undetermined age. Details above. Mild spondylosis. Reading Location: [id number]
--- NOTE | 2025-08-15 08:55 | RAD_ITS ---
PROCEDURE: S-I JTS 3 OR MORE VIEWS 08/15/2025 REASON FOR EXAM: LOW BACK PAIN TECHNIQUE: Procedure Code: RADSAI Modality: DX Procedure: S-I JTS 3 OR MORE VIEWS FINDINGS: No evidence acute fracture or dislocation. The sacroiliac joint spaces are maintained. Intrauterine device is present. RAD/S-I Jts 3 or More Views IMPRESSION: No significant abnormality. Reading Location: [id number]
== END | disposition home or self-care (01) ==
PROVIDERS: PCP Family Medicine; Referring Provider Physician Assistant; Visit Provider Physician Assistant
DX: M54.41 Lumbago with sciatica, right side (principal); G89.29 Other chronic pain
CPT/HCPCS: 72100; 72202

== ENCOUNTER → 2025-08-16 | Outpatient (CLI) | payer OTHER, SELFPAY ==
--- NOTE | 2025-08-16 16:24 | CT_ITS ---
PROCEDURE: ABDOMEN/PELVIS WITH CONTRAST 08/16/2025 REASON FOR EXAM: ABDOMINAL PAIN TECHNIQUE: Procedure Code: [id number] Modality: CT Procedure: ABDOMEN/PELVIS WITH CONTRAST Coronal and Sagittal reconstruction series were provided. CONTRAST: Isovue 370 VOLUME: mL One or more dose reduction techniques were used (e.g., Automated exposure control, adjustment of the mA and/or kV according to patient size, use of iterative reconstruction technique. RADIATION DOSE SUMMARY: CTDlvol: 13+ 23 mGy DLP: 1240 mGycm COMPARISON: 08/24/2023. FINDINGS: The lung bases are clear. The peripheral soft tissues are unremarkable. Normal caliber abdominal aorta. No suspicious lymphadenopathy. The liver, gallbladder, pancreas, spleen, adrenals unremarkable. Symmetric enhancement of bilateral kidneys in the corticomedullary phase. The urinary bladder is unremarkable. Intrauterine device appears in satisfactory position. Normal caliber large and small bowel without surrounding inflammatory changes. CT/Abdomen/Pelvis WITH Contrast IMPRESSION: No acute abnormalities of the abdomen and pelvis. Reading Location: [id number]
== END | disposition home or self-care (01) ==
LOC: CT 16:23
PROVIDERS: PCP Family Medicine; Referring Provider Internal Medicine Gastroenterology; Visit Provider Internal Medicine Gastroenterology
DX: R14.0 Abdominal distension (gaseous) (principal); R19.7 Diarrhea, unspecified
CPT/HCPCS: 74177; Q9967

== ENCOUNTER → 2025-09-23 | Outpatient (CLI) | payer OTHER, SELFPAY ==
[2025-09-23 11:57] LABS: Cholesterol 269 mg/dL (<=200); Low Density Lipoprotein Calc. 175 mg/dL; Triglycerides 260 mg/dL; Very Low Density Lipoprotein 52 mg/dL (5-40); cholesterol:hdl ratio screen 6.02
== END | disposition home or self-care (01) ==
LOC: LAB 10:10
PROVIDERS: PCP Family Medicine; Referring Provider Nurse Practitioner Family; Visit Provider Nurse Practitioner Family
DX: E66.812 Obesity, class 2 (principal); Z68.38 Body mass index [BMI] 38.0-38.9, adult; Z13.1 Encounter for screening for diabetes mellitus; Z13.220 Encounter for screening for lipoid disorders; G47.33 Obstructive sleep apnea (adult) (pediatric); I10 Essential (primary) hypertension; E78.5 Hyperlipidemia, unspecified; K21.9 Gastro-esophageal reflux disease without esophagitis; F41.9 Anxiety disorder, unspecified; F32.A Depression, unspecified; E03.9 Hypothyroidism, unspecified; M13.80 Other specified arthritis, unspecified site
CPT/HCPCS: 36415; 80061; 83036; 83525